=== PATIENT | female | born 1930 | race American Indian/Alaskan Native ===

== ENCOUNTER 2017-04-17 19:02 | Inpatient (IN) | payer MEDICARE, OTHER ==
[2017-04-17 19:02] VITALS: BMI 30.2
[2017-04-17] MEDS ORDERED: Vancomycin 1 GM 1 GM/250 ML BAG IV SCH (20:15)
[2017-04-17] MEDS ORDERED: Clindamycin 600mg/50ml D5W 600 MG/50 ML VIAL IVPB STA (20:19)
[2017-04-17] MEDS ORDERED: Nitroglycerin 2% Ointment Foilpak UD TOP STA (20:20)
[2017-04-17 20:30] LABS: BASO % 0.6 % (0.0-2.0); EOS # 0.1 K/uL (0.0-0.7); EOS % 1.3 % (0.0-4.0); HEMATOCRIT 35.9 % (34.0-47.0); LYMPH % 20.6 % (20.0-40.0); MEAN CELL VOLUME 87.6 fL (81.0-99.0); MEAN CORPUSCULAR HEMOGLOBIN 27.4 pg (27.0-31.0); MEAN CORPUSCULAR HGB CONC 31.3 g/dL (33.0-37.0); MEAN PLATELET VOLUME 9.3 fL (7.2-11.7); MONO # 0.8 K/uL (0.0-0.8); MONO % 15.9 % (0.0-10.0); NRBC % 0.2 % (0.0-2.0); WHITE BLOOD COUNT 4.9 K/uL (4.8-10.8)
[2017-04-17] MEDS ORDERED: Nitroglycerin 2% Ointment Foilpak UD TOP ONE (20:33)
[2017-04-17] MEDS ORDERED: Vancomycin 1 GM 1 GM/250 ML BAG IVPB ONE (20:34)
[2017-04-17 20:35] LABS: CHLORIDE 104 mmol/L (98-107); SODIUM 141 mmol/L (132-148)
[2017-04-17 20:36] LABS: POTASSIUM 4.4 mmol/L (3.6-5.2)
[2017-04-17 20:38] LABS: ALKALINE PHOSPHATASE 129 U/L (38-126); ALT/SGPT 41 U/L (9-52); AST/SGOT 31 U/L (14-36); BILIRUBIN,TOTAL 0.7 mg/dL (0.2-1.3); BLOOD UREA NITROGEN 19 mg/dL (7-17); CARBON DIOXIDE 25 mmol/L (22-30); GFR AFRICAN-AMERICAN > 60; GLUCOSE,RANDOM 236 mg/dL (65-105); TOTAL PROTEIN 7.3 g/dL (6.3-8.3)
[2017-04-17 20:39] LABS: CALCIUM 9.1 mg/dl (8.6-10.4)
--- NOTE | 2017-04-17 21:07 | C.PDOC ---
History Of Present Illness 87 y/o female c/o acute on chronic foot ulcer. Patient was sent by Dr. Gallo for the foot ulcer. Denies chest pain, SOB, fever, chills, nausea, vomiting, abdominal pain, palpitations, or any other complaints. Chronic wound stable, new onset lower extremity edema. Time Seen by Provider: 04/17/17 20:04 Chief Complaint (Nursing): Lower Extremity Problem/Injury History Per: Patient History/Exam Limitations: no limitations Onset/Duration Of Symptoms: Days, Sudden Onset Current Symptoms Are (Timing): Still Present Severity: Mild Recent travel outside of the [place]: No Additional History Per: Patient Past Medical History Reviewed: Historical Data, Nursing Documentation, Vital Signs Vital Signs: Last Vital Signs Temp 97.8 F 04/17/17 23:43 Pulse 69 04/17/17 23:20 Resp 20 04/17/17 23:20 BP 148/101 H 04/17/17 23:20 Pulse Ox 98 04/17/17 23:20 - Medical History PMH: Anxiety, Atrial Fibrillation, CHF, COPD, Dementia, Diabetes, HTN, Hypercholesterolemia, Peripheral Edema Denies: Depression, Chronic Kidney Disease - Xockets Procedures INJECT/INFUSE NEC (11/24/12) NONEXCIS DEBRID OF WOUND, INFECT, OR BURN (01/19/13) Family History: States: Unknown Family Hx - Social History Hx Tobacco Use: No Hx Alcohol Use: No Hx Substance Use: No - Immunization History Hx Tetanus Toxoid Vaccination: No Hx Influenza Vaccination: No Hx Pneumococcal Vaccination: No Review Of Systems Except As Marked, All Systems Reviewed And Found Negative. Constitutional: Negative for: Fever, Chills Cardiovascular: Negative for: Chest Pain, Palpitations Respiratory: Negative for: Shortness of Breath Gastrointestinal: Negative for: Nausea, Vomiting, Abdominal Pain Musculoskeletal: Positive for: Foot Pain (Chronic foot ulcer) Physical Exam - Physical Exam Appears: Non-toxic, No Acute Distress, Other (Elderly black women, Morbidly obese) Skin: Warm, Dry Head: Atraumatic, Normacephalic Cardiovascular: Rhythm Irregular (AFIB) Respiratory: Normal Breath Sounds, No Rales, No Rhonchi, No Wheezing Gastrointestinal/Abdominal: Soft, Other (Obese) Extremity: Normal ROM, Pedal Edema (3/4 pitting edema), Capillary Refill (<2secs ), Other (Chronic skin color changes. 3cm x 3cm ulcer on the left medial ankle. 4cm x 4cm ulcer on the right lateral ankle. No significant surrounding erythema. ) Pulses: Left Dorsalis Pedis: Normal, Right Dorsalis Pedis: Normal Neurological/Psych: Oriented x3, Normal Speech, Normal Cognition Gait: Steady ED Course And Treatment - Laboratory Results Result Diagrams: 04/17/17 20:24 04/17/17 20:24 Lab Interpretation: Normal (trop neg,) ECG: Interpreted By Me ECG Rhythm: Atrial Fibrillation ECG Interpretation: Abnormal Rate From EC O2 Sat by Pulse Oximetry: 100 (RA) Pulse Ox Interpretation: Normal - Radiology CXR: Interpreted by Me CXR Interpretation: Yes: No Acute Disease Progress Note: clinda, vanco, lasix, lovenox, clonidine PO Reevaluation Time: 22:21 Reassessment Condition: Improved Medical Decision Making Medical Decision Making: Impression: 87 y/o female c/o acute on chronic foot ulcer. Plans: EKG * CXR * Catapres * Lovenox * Lasic * Vanco. * Blood work up * IV fluids no h/o AF, new AF on EKG, lovenox given, INR pending Clinical CHF/leg edema and ++ HTN, continue ntp/lasix IV/clonidine ?? if ulcers for "years" but DM only recently dx, consider other ID etiologies. Former pt of [facility] and does NOT want [facility] for new PMD- wants new /other local PMD d/w Dr. Kinza Bowen- Medicine call or contact centre team leader- @ 2029, ok to admit, asks for Dr. Prado for ID consult 2220: d/w Dr. 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 I have reviewed the chart and agree that the record accurately reflects my personal performance of the history, physical exam, medical decision making, and the department course for this patient. I have also personally directed, reviewed, and agree with the discharge instructions and disposition.
[2017-04-17] MEDS ORDERED: Enoxaparin 40 mg Syringe SC STA (21:09)
[2017-04-17 21:51] LABS: RBC URINE 6 /hpf (0-3); URINE BACTERIA RARE (<OCC); URINE BILIRUBIN NEGATIVE (NEGATIVE); URINE BLOOD 1+ (NEGATIVE); URINE COLOR Straw (YELLOW); URINE GLUCOSE (UA) NORMAL (Normal); URINE KETONE NEGATIVE (NEGATIVE); URINE LEUKOCYTE ESTERASE NEG Leu/uL (Negative); URINE PROTEIN 1+ mg/dL (NEGATIVE); URINE UROBILINOGEN NORMAL mg/dL (0.2-1.0); WBC URINE 1 /hpf (0-5)
[2017-04-17] MEDS ORDERED: Vancomycin 1 GM 1 GM/250 ML BAG IV STA (21:53)
[2017-04-17 21:54] LABS: INR 1.2
[2017-04-17] MEDS ORDERED: Enoxaparin 80 mg Syringe ONE (21:56)
[2017-04-17] MEDS ORDERED: Enoxaparin 40 mg Syringe ONE (21:56)
[2017-04-18] MEDS ORDERED: Magnesium Hydroxide Susp 30 ml UD PO PRN (05:58)
[2017-04-18] MEDS: Nitroglycerin 2% Ointment Foilpak UD TOP SCH ×4 (06:26→23:51)
--- NOTE | 2017-04-18 08:11 | RAD ---
PROCEDURE: CHEST RADIOGRAPH, 1 VIEW HISTORY: SOB COMPARISON: 07/09/2016. FINDINGS: LUNGS: There is moderate pulmonary venous congestion. PLEURA: There is fluid in the minor fissure. There are bilateral pleural effusions, larger on the left. CARDIOVASCULAR: There is severe cardiomegaly and prominent central vasculature. OSSEOUS STRUCTURES: No significant abnormalities. VISUALIZED UPPER ABDOMEN: Normal. OTHER FINDINGS: None. IMPRESSION: Findings are most compatible with congestive heart failure with small pleural effusions, larger on the left.
[2017-04-18] MEDS: (Novolog) Insulin Aspart, Recombinant 100 u/ml 10 ml vial SC SCH ×5 (08:28→21:44)
[2017-04-18] MEDS: Potassium Chloride 10 mEq ER Tab PO SCH (10:59)
--- NOTE | 2017-04-18 11:22 | CP.PCM.CON ---
<Willian Dominique E - Last Filed: 04/18/17 15:35> History of Present Illness - History of Present Illness History of Present Illness: Surgical Consult for bilateral leg ulcers HPI: Patient is a 87 year old female with past medical history Atrial Fibrillation, CHF, COPD, Diabetes, Hypertension, Hypercholesterolemia, depression and recurrent foot ulcer. Patient was sent by Dr. Martinez for the foot ulcer, for which surgery is consulted. Patient denies fever, chills, nausea, vomiting, chest pain and palpitations but admits to moderate pain on her left ankle with palpation. Patient has no other complaints. PMHx: Atrial fibrillation, CHF, COPD, dementia, Diabetes, HTN , Hypercholestertolemia and depression PSHx: x2, FHx: Unknown Medications: as per chart Allergies: Ertapnenem sodium Social History: Lives in a detention, denies tobacco, ETOH and illicit drug use. Review of Systems - Constitutional Constitutional: absent: Chills, Fever - Cardiovascular Cardiovascular: Dyspnea on Exertion, Leg Ulcers. absent: Chest Pain, Chest Pain at Rest, Diaphoresis, Dyspnea, Palpitations - Respiratory Respiratory: absent: Dyspnea - Gastrointestinal Gastrointestinal: absent: Abdominal Pain, Nausea, Vomiting - Musculoskeletal Musculoskeletal: absent: Numbness, Tingling Past Patient History - Infectious Disease Hx of Infectious Diseases: None - Tetanus Immunizations Tetanus Immunization: Unknown - Past Medical History & Family History Past Medical History?: Yes - Past Social History Smoking Status: Never Smoked - CARDIAC Hx Cardiac Disorders: Yes Hx Atrial Fibrillation: Yes Hx Congestive Heart Failure: Yes Hx Hypercholesterolemia: Yes Hx Hypertension: Yes Hx Peripheral Edema: Yes - PULMONARY Hx Respiratory Disorders: Yes Hx Chronic Obstructive Pulmonary Disease (COPD): Yes - NEUROLOGICAL Hx Neurological Disorder: Yes Hx Dementia: Yes - HEENT Hx HEENT Problems: No Other/Comment: gets nasal congestion - RENAL Hx Chronic Kidney Disease: No - ENDOCRINE/METABOLIC Hx Endocrine Disorders: Yes Hx Diabetes Mellitus Type 2: Yes - HEMATOLOGICAL/ONCOLOGICAL Hx Blood Disorders: No Hx Blood Transfusions: No Hx Blood Transfusion Reaction: No - INTEGUMENTARY Hx Dermatological Problems: Yes Other/Comment: dry scaly skin, bilateral inner aspect of foot open wound. - MUSCULOSKELETAL/RHEUMATOLOGICAL Hx Musculoskeletal Disorders: Yes Hx Falls: Yes - GASTROINTESTINAL Hx Gastrointestinal Disorders: No - GENITOURINARY/GYNECOLOGICAL Hx Genitourinary Disorders: Yes Hx Urinary Tract Infection: Yes - PSYCHIATRIC Hx Anxiety: Yes - SURGICAL HISTORY Hx Surgeries: Yes Hx Section: Yes (x2) - ANESTHESIA Hx Anesthesia: Yes Hx Anesthesia Reactions: No Hx Malignant Hyperthermia: No Meds Allergies/Adverse Reactions: Allergies Allergy/AdvReac Type Severity Reaction Status Date / Time ertapenem sodium Allergy Verified 04/17/17 19:30 [From Erwin] - Medications Medications: Current Medications Furosemide (Lasix) 40 mg PO DAILY [facility] Insulin Aspart (Novolog) 0 unit SC ACHS [facility] PRN Reason: Protocol Last Admin: 04/18/17 08:29 Dose: Not Given Lactic Acid (Lac-Hydrin 12% Lotion (225 G)) 0 gm TOP BID [facility] Lactulose (Enulose) 20 gm PO Q12 [facility] Losartan Potassium (Cozaar) 100 mg PO DAILY [facility] Magnesium Hydroxide (Milk Of Magnesia) 30 ml PO Q8 PRN PRN Reason: Constipation Nitroglycerin (Nitro-Bid 2% Oint) 1 ea TOP Q6 [facility] Last Admin: 04/18/17 06:26 Dose: 1 ea Potassium Chloride (Klor-Con 10) 10 meq PO DAILY [facility] Rivaroxaban (Xarelto) 20 mg PO DAILY [facility] Physical Exam - Constitutional Appears: Well, No Acute Distress - Head Exam Head Exam: ATRAUMATIC, NORMAL INSPECTION - Respiratory Exam Respiratory Exam: Decreased Breath Sounds, NORMAL BREATHING PATTERN - Cardiovascular Exam Cardiovascular Exam: Irregular Rhythm, +S1, +S2 - GI/Abdominal Exam GI & Abdominal Exam: Normal Bowel Sounds, Soft - Extremities Exam Extremities exam: Positive for: tenderness Additional comments: B/L Leg Ulcer dressing clean, dry and intact 3cm X 4cm Left medial mallelous ulcer 2cm x 1.5 cm Right leg ulcer - Neurological Exam Neurological exam: Alert Results - Vital Signs Recent Vital Signs: Last Vital Signs Temp 97.6 F 04/18/17 08:16 Pulse 89 04/18/17 08:16 Resp 20 04/18/17 08:16 BP 162/103 H 04/18/17 08:16 Pulse Ox 100 04/18/17 08:16 - Labs Result Diagrams: 04/17/17 20:24 04/17/17 20:24 Labs: Laboratory Results - last 24 hr 04/17/17 04/17/17 04/18/17 21:39 21:41 06:17 PT 13.2 H INR 1.2 POC Glucose (mg/dL) 205 H Urine Color Straw Urine Clarity Clear Urine pH 5.0 Ur Specific [place] 1.006 Urine Protein 1+ H Urine Glucose (UA) Normal Urine Ketones Negative Urine Blood 1+ H Urine Nitrate Negative Urine Bilirubin Negative Urine Urobilinogen Normal Ur Leukocyte Esterase Neg Urine WBC (Auto) 1 Urine RBC (Auto) 6 H Ur Squamous Epith Cells 8 H Urine Bacteria Rare Assessment & Plan - Assessment and Plan (Free Text) Assessment: 87 year old female with bilateral leg ulcer Plan: -Dressing changes as needed -Continue antibiotics -Continue medical management as per podiatry recommendation: foot elevation, diuresis, diabetic foot ulcer boots -No surgical intervention at this time -Further recommendation as per Dr. Delbert Dominique, PGY -1 <Enio Mandujano - Last Filed: 04/19/17 17:55> Meds - Medications Medications: Current Medications Amlodipine Besylate (Norvasc) 2.5 mg PO DAILY [facility] Last Admin: 04/19/17 14:54 Dose: 2.5 mg Furosemide (Lasix) 40 mg PO DAILY [facility] Last Admin: 04/19/17 10:31 Dose: 40 mg Vancomycin/Sodium Chloride (Vancocin) 1 gm in 200 mls @ 133.333 mls/hr IVPB Q24H [facility] Stop: 04/23/17 22:01 Last Admin: 04/18/17 22:46 Dose: 133.333 mls/hr Insulin Aspart (Novolog) 0 unit SC ACHS [facility] PRN Reason: Protocol Last Admin: 04/19/17 12:30 Dose: Not Given Isosorbide Mononitrate (Imdur) 60 mg PO DAILY [facility] Lactic Acid (Lac-Hydrin 12% Lotion (225 G)) 0 gm TOP BID [facility] Last Admin: 04/19/17 10:32 Dose: 1 applic Lactulose (Enulose) 20 gm PO Q12 [facility] Last Admin: 04/19/17 10:32 Dose: Not Given Losartan Potassium (Cozaar) 100 mg PO DAILY [facility] Last Admin: 04/19/17 10:31 Dose: 100 mg Magnesium Hydroxide (Milk Of Magnesia) 30 ml PO Q8 PRN PRN Reason: Constipation Metoprolol Tartrate (Lopressor) 25 mg PO BID [facility] Potassium Chloride (Klor-Con 10) 10 meq PO DAILY [facility] Last Admin: 04/19/17 10:32 Dose: 10 meq Rivaroxaban (Xarelto) 20 mg PO DAILY [facility] Last Admin: 04/19/17 09:57 Dose: 20 mg Sodium Hypochlorite (Dakins Solution 0.125%) 0.5 appl TOP BID [facility] Results - Vital Signs Recent Vital Signs: Last Vital Signs Temp 98.0 F 04/19/17 08:52 Pulse 106 H 04/19/17 08:52 Resp 20 04/19/17 08:52 BP 165/97 H 04/19/17 10:31 Pulse Ox 98 04/19/17 08:52 - Labs Result Diagrams: 04/19/17 06:32 04/19/17 06:32 Labs: Laboratory Results - last 24 hr 04/18/17 04/18/17 04/19/17 18:47 21:03 06:15 WBC RBC Hgb Hct MCV MCH MCHC RDW Plt Count MPV Neut % (Auto) Lymph % (Auto) [place] % (Auto) Eos % (Auto) Baso % (Auto) Neut # Lymph # [place] # Eos # Baso # Sodium Potassium Chloride Carbon Dioxide Anion Gap BUN Creatinine Est GFR ( Amer) Est GFR (Non-Af Amer) POC Glucose (mg/dL) 222 H 202 H 155 H Random Glucose Calcium Total Bilirubin AST ALT Alkaline Phosphatase Total Protein Albumin Globulin Albumin/Globulin Ratio 04/19/17 04/19/17 04/19/17 06:32 06:32 11:50 WBC 4.7 L RBC 3.78 L Hgb 10.1 L Hct 32.6 L MCV 86.3 MCH 26.9 L MCHC 31.1 L RDW 17.5 H Plt Count 153 MPV 9.2 Neut % (Auto) 51.8 Lymph % (Auto) 30.0 [place] % (Auto) 14.9 H Eos % (Auto) 2.3 Baso % (Auto) 1.0 Neut # 2.5 Lymph # 1.4 [place] # 0.7 Eos # 0.1 Baso # 0.0 Sodium 144 Potassium 3.9 Chloride 107 Carbon Dioxide 26 Anion Gap 15 BUN 17 Creatinine 0.8 Est GFR ( Amer) > 60 Est GFR (Non-Af Amer) > 60 POC Glucose (mg/dL) 219 H Random Glucose 141 H Calcium 9.0 Total Bilirubin 0.8 AST 26 ALT 34 Alkaline Phosphatase 138 H Total Protein 6.7 Albumin 3.1 L Globulin 3.6 Albumin/Globulin Ratio 0.9 L 04/19/17 17:00 WBC RBC Hgb Hct MCV MCH MCHC RDW Plt Count MPV Neut % (Auto) Lymph % (Auto) [place] % (Auto) Eos % (Auto) Baso % (Auto) Neut # Lymph # [place] # Eos # Baso # Sodium Potassium Chloride Carbon Dioxide Anion Gap BUN Creatinine Est GFR ( Amer) Est GFR (Non-Af Amer) POC Glucose (mg/dL) 190 H Random Glucose Calcium Total Bilirubin AST ALT Alkaline Phosphatase Total Protein Albumin Globulin Albumin/Globulin Ratio Attending/Attestation - Attestation I have personally seen and examined this patient.: Yes I have fully participated in the care of the patient.: Yes I have reviewed all pertinent clinical information: Yes Notes (Text): 04/19/17 17:54 Pt was seen and examined at bedside Agree with above note and assessment Pt with OM and Foot ulcer No general surgery intervention required at present F.U PRN
[2017-04-18] MEDS: Ammonium Lactate 12% Lotion (225 g) TOP SCH ×2 (11:58→18:42)
--- NOTE | 2017-04-18 13:09 | PCM.PSYCH ---
Initial Psychiatric Evaluation - Initial Psychiatric Evaluation Type of Admission: Voluntary Legal Status: Capacity Chief Complaint (in patient's own words): "I am feeling depressed and want to leave the hospital." Patient's Reaction to Hospitalization: cooperative History of Present Illness and Precipitating Events: Patient is an 87 year old female in the hospital for a foot ulcer. Psychiatry consulted because the patient is feeling depressed and sometimes has thoughts of hurting herself. Patient does not think is better than life. Patient currently does not want to hurt herself. Patient says she has been depressed since she moved to a prison 2 years ago. Patient has no history of depression before this. Patient denies auditory of visual hallucinations. Patient has no delusions. Patient has never been hospitalized for a psychiatric reason and has never been to a psychiatrist. Patient does not like her prison because she feels that the staff often do not answer her questions adequately. Patient is able to recall where she is, the date, and the past two presidents. Psychhx: none PMD: Atrial fibrillation, CHF, COPD, dementia, Diabetes, HTN , Hypercholestertolemia Social hx: lives in prison for past 2 years, denies tobacco, ETOH and drug use Current Medications: Active Medications Generic Name Dose Route Start Last Admin Trade Name Freq PRN Reason Stop Dose Admin Furosemide 40 mg 04/18/17 10:00 04/18/17 10:58 Lasix PO 40 mg DAILY [facility] Administration Insulin Aspart 0 unit 04/18/17 07:30 04/18/17 12:30 Novolog SC Not Given ACHS [facility] Protocol Lactic Acid 0 gm 04/18/17 10:00 04/18/17 11:58 Lac-Hydrin 12% Lotion (225 G) TOP Not Given BID [facility] Lactulose 20 gm 04/18/17 10:00 04/18/17 10:59 Enulose PO 20 gm Q12 [facility] Administration Losartan Potassium 100 mg 04/18/17 10:00 04/18/17 10:59 Cozaar PO 100 mg DAILY [facility] Administration Magnesium Hydroxide 30 ml 04/18/17 05:58 Milk Of Magnesia PO Q8 PRN Constipation Nitroglycerin 1 ea 04/18/17 06:00 04/18/17 06:26 Nitro-Bid 2% Oint TOP 1 ea Q6 [facility] Administration Potassium Chloride 10 meq 04/18/17 10:00 04/18/17 10:59 Klor-Con 10 PO 10 meq DAILY [facility] Administration Rivaroxaban 20 mg 04/18/17 10:00 04/18/17 11:55 Xarelto PO 20 mg DAILY [facility] Administration Past Psychiatric History - Past Psychiatric History Previous Treatment History: None Pertinent Medical Hx (Current Medical&Sleep Prob, Allergies): Allergies Allergy/AdvReac Type Severity Reaction Status Date / Time ertapenem sodium Allergy Verified 04/17/17 19:30 [From Invanz] Ammonium Lactate 12% [Lac-Hydrin 12% Cream (140 g)] 1 dose TP BID 07/09/16 Insulin Aspart [Novolog] 0 unit SC DAILY 07/09/16 Lactulose [Enulose] 20 gm PO Q12 07/09/16 Magnesium Hydroxide [Milk Of Magnesia] 30 ml PO PRN PRN 07/09/16 Losartan [Cozaar] 100 mg PO DAILY #0 tab 07/12/16 Nitroglycerin 2% [Nitro-Bid 2% Oint] 1 ea TOP Q6 #0 fp 07/12/16 Rivaroxaban [Xarelto] 20 mg PO DAILY #0 tab 07/12/16 Furosemide [Lasix] 40 mg PO DAILY 04/17/17 Potassium Chloride [Klor-Con 10] 10 meq PO DAILY 04/17/17 Review of Systems - Psychiatric Psychiatric: Anxiety, Depression. absent: Auditory Hallucinations, Confusion, Hallucinations, Homicidal Ideation, Hopelessness, Paranoia, Suicidal Ideation Mental Status Examination - Personal Presentation Personal Presentation: Looks stated age - Affect Affect: Broad - Motor Activity Motor Activity: Calm - Reliability in Providing Information Reliability in Providing Information: Fair - Speech Speech: Relevant - Mood Mood: Depressed, Anxious - Formal Thought Process Formal Thought Process: No Impairment - Obsessions/Compulsions Obsessions: No Compulsions: No - Cognitive Functions Orientation: Person, Place, Situation, Time Sensorium: Alert Abstract Thinking: [place] Estimate of Intelligence: Average Judgement: Intact, as evidence by: Insight regarding need for hospitalization Memory: Recent intact, as evidence by: Ability to recall events of the day - Strength & Assets Inventory Strength & Assets Inventory: Family support DSM 5 DX - DSM 5 DSM 5 Diagnosis: Senile Dementia Anxiety Disorder - Recommended/Plan of Treatment Treatment Recommendations and Plan of Treatment: Senile Dementia monitor supportive care Anxiety disorder monitor Patient stable, psych will sign off, please re-consult if needed. Prognosis: good
--- NOTE | 2017-04-18 15:18 | CP.PCM.CON ---
History of Present Illness - History of Present Illness History of Present Illness: 87 year old female with PMHx including Atrial fibrillation, CHF, COPD, dementia , Diabetes, HTN , Hypercholestertolemia was seen at bedside this afternoon regarding b/l ankle ulcerations. Patient states that she saw, Dr. Mack in office yesterday for her wounds. She states that her ankles are tender and that she has had these wounds for a while. Denies any n/v/f/c/sob/cp. Past Patient History - Infectious Disease Hx of Infectious Diseases: None - Tetanus Immunizations Tetanus Immunization: Unknown - Past Medical History & Family History Past Medical History?: Yes - Past Social History Smoking Status: Never Smoked - CARDIAC Hx Cardiac Disorders: Yes Hx Atrial Fibrillation: Yes Hx Congestive Heart Failure: Yes Hx Hypercholesterolemia: Yes Hx Hypertension: Yes Hx Peripheral Edema: Yes - PULMONARY Hx Respiratory Disorders: Yes Hx Chronic Obstructive Pulmonary Disease (COPD): Yes - NEUROLOGICAL Hx Neurological Disorder: Yes Hx Dementia: Yes - HEENT Hx HEENT Problems: No Other/Comment: gets nasal congestion - RENAL Hx Chronic Kidney Disease: No - ENDOCRINE/METABOLIC Hx Endocrine Disorders: Yes Hx Diabetes Mellitus Type 2: Yes - HEMATOLOGICAL/ONCOLOGICAL Hx Blood Disorders: No Hx Blood Transfusions: No Hx Blood Transfusion Reaction: No - INTEGUMENTARY Hx Dermatological Problems: Yes Other/Comment: dry scaly skin, bilateral inner aspect of foot open wound. - MUSCULOSKELETAL/RHEUMATOLOGICAL Hx Musculoskeletal Disorders: Yes Hx Falls: Yes - GASTROINTESTINAL Hx Gastrointestinal Disorders: No - GENITOURINARY/GYNECOLOGICAL Hx Genitourinary Disorders: Yes Hx Urinary Tract Infection: Yes - PSYCHIATRIC Hx Anxiety: Yes - SURGICAL HISTORY Hx Surgeries: Yes Hx Section: Yes (x2) - ANESTHESIA Hx Anesthesia: Yes Hx Anesthesia Reactions: No Hx Malignant Hyperthermia: No Meds Allergies/Adverse Reactions: Allergies Allergy/AdvReac Type Severity Reaction Status Date / Time ertapenem sodium Allergy Verified 04/17/17 19:30 [From Invanz] - Medications Medications: Current Medications Furosemide (Lasix) 40 mg PO DAILY [facility] Last Admin: 04/18/17 10:58 Dose: 40 mg Insulin Aspart (Novolog) 0 unit SC ACHS [facility] PRN Reason: Protocol Last Admin: 04/18/17 12:30 Dose: Not Given Lactic Acid (Lac-Hydrin 12% Lotion (225 G)) 0 gm TOP BID [facility] Last Admin: 04/18/17 11:58 Dose: Not Given Lactulose (Enulose) 20 gm PO Q12 [facility] Last Admin: 04/18/17 10:59 Dose: 20 gm Losartan Potassium (Cozaar) 100 mg PO DAILY [facility] Last Admin: 04/18/17 10:59 Dose: 100 mg Magnesium Hydroxide (Milk Of Magnesia) 30 ml PO Q8 PRN PRN Reason: Constipation Nitroglycerin (Nitro-Bid 2% Oint) 1 ea TOP Q6 [facility] Last Admin: 04/18/17 12:58 Dose: 1 ea Potassium Chloride (Klor-Con 10) 10 meq PO DAILY [facility] Last Admin: 04/18/17 10:59 Dose: 10 meq Rivaroxaban (Xarelto) 20 mg PO DAILY [facility] Last Admin: 04/18/17 11:55 Dose: 20 mg Physical Exam - Constitutional Appears: Non-toxic - Extremities Exam Additional comments: Lower extremity focused exam: Vasc: DP and PT pulses faintly palpable b/l. Skin temperature warm to cool from proximal to distal b/l Neuro: Gross sensation diminished b/l Ortho: Tenderness on palpation to wounds at right and left medial ankle Derm: Open ulcerations noted to the right ankle measuring approximately 4 cm by 4 cm by 0.3 cm with fibrogranular base, no malodor, no puruelnce noted. Ulceration noted to the left ankle measure approximately 2.5 cm by 1.5 cm by 0.3 cm with fibrogranular base, no malodor, no puruelnce noted. No erythema, no calor noted. - Neurological Exam Neurological exam: Alert, Oriented x3 - Psychiatric Exam Psychiatric exam: Normal Affect, Normal Mood Results - Vital Signs Recent Vital Signs: Last Vital Signs Temp 97.6 F 04/18/17 08:16 Pulse 89 04/18/17 08:16 Resp 20 04/18/17 08:16 BP 152/97 H 04/18/17 10:58 Pulse Ox 100 04/18/17 08:16 - Labs Result Diagrams: 04/17/17 20:24 04/17/17 20:24 Labs: Laboratory Results - last 24 hr 04/17/17 04/17/17 04/18/17 21:39 21:41 06:17 PT 13.2 H INR 1.2 POC Glucose (mg/dL) 205 H Urine Color Straw Urine Clarity Clear Urine pH 5.0 Ur Specific [place] 1.006 Urine Protein 1+ H Urine Glucose (UA) Normal Urine Ketones Negative Urine Blood 1+ H Urine Nitrate Negative Urine Bilirubin Negative Urine Urobilinogen Normal Ur Leukocyte Esterase Neg Urine WBC (Auto) 1 Urine RBC (Auto) 6 H Ur Squamous Epith Cells 8 H Urine Bacteria Rare 04/18/17 11:40 PT INR POC Glucose (mg/dL) 181 H Urine Color Urine Clarity Urine pH Ur Specific [place] Urine Protein Urine Glucose (UA) Urine Ketones Urine Blood Urine Nitrate Urine Bilirubin Urine Urobilinogen Ur Leukocyte Esterase Urine WBC (Auto) Urine RBC (Auto) Ur Squamous Epith Cells Urine Bacteria Assessment & Plan - Assessment and Plan (Free Text) Assessment: 87 year old female with b/l ulcerations noted to the ankle Plan: patient examined and evaluated discussed in detail with attending, Dr. Mack chart, labs, vitals reviewed;afebrile, WBC 4.9 wounds dressed with DSD continue IV abx per ID podiatry will continue to follow patient while in house
--- NOTE | 2017-04-18 16:35 | CP.PCM.CON ---
History of Present Illness - History of Present Illness History of Present Illness: dictated Past Patient History - Infectious Disease Hx of Infectious Diseases: None - Tetanus Immunizations Tetanus Immunization: Unknown - Past Medical History & Family History Past Medical History?: Yes - Past Social History Smoking Status: Never Smoked - CARDIAC Hx Cardiac Disorders: Yes Hx Atrial Fibrillation: Yes Hx Congestive Heart Failure: Yes Hx Hypercholesterolemia: Yes Hx Hypertension: Yes Hx Peripheral Edema: Yes - PULMONARY Hx Respiratory Disorders: Yes Hx Chronic Obstructive Pulmonary Disease (COPD): Yes - NEUROLOGICAL Hx Neurological Disorder: Yes Hx Dementia: Yes - HEENT Hx HEENT Problems: No Other/Comment: gets nasal congestion - RENAL Hx Chronic Kidney Disease: No - ENDOCRINE/METABOLIC Hx Endocrine Disorders: Yes Hx Diabetes Mellitus Type 2: Yes - HEMATOLOGICAL/ONCOLOGICAL Hx Blood Disorders: No Hx Blood Transfusions: No Hx Blood Transfusion Reaction: No - INTEGUMENTARY Hx Dermatological Problems: Yes Other/Comment: dry scaly skin, bilateral inner aspect of foot open wound. - MUSCULOSKELETAL/RHEUMATOLOGICAL Hx Musculoskeletal Disorders: Yes Hx Falls: Yes - GASTROINTESTINAL Hx Gastrointestinal Disorders: No - GENITOURINARY/GYNECOLOGICAL Hx Genitourinary Disorders: Yes Hx Urinary Tract Infection: Yes - PSYCHIATRIC Hx Anxiety: Yes - SURGICAL HISTORY Hx Surgeries: Yes Hx Section: Yes (x2) - ANESTHESIA Hx Anesthesia: Yes Hx Anesthesia Reactions: No Hx Malignant Hyperthermia: No Meds Allergies/Adverse Reactions: Allergies Allergy/AdvReac Type Severity Reaction Status Date / Time ertapenem sodium Allergy Verified 04/17/17 19:30 [From Erwin] - Medications Medications: Current Medications Furosemide (Lasix) 40 mg PO DAILY [facility] Last Admin: 04/18/17 10:58 Dose: 40 mg Vancomycin/Sodium Chloride (Vancocin) 1 gm in 200 mls @ 133.333 mls/hr IVPB Q24H [facility] Stop: 04/23/17 22:01 Insulin Aspart (Novolog) 0 unit SC ACHS [facility] PRN Reason: Protocol Last Admin: 04/18/17 12:30 Dose: Not Given Lactic Acid (Lac-Hydrin 12% Lotion (225 G)) 0 gm TOP BID [facility] Last Admin: 04/18/17 11:58 Dose: Not Given Lactulose (Enulose) 20 gm PO Q12 [facility] Last Admin: 04/18/17 10:59 Dose: 20 gm Losartan Potassium (Cozaar) 100 mg PO DAILY [facility] Last Admin: 04/18/17 10:59 Dose: 100 mg Magnesium Hydroxide (Milk Of Magnesia) 30 ml PO Q8 PRN PRN Reason: Constipation Nitroglycerin (Nitro-Bid 2% Oint) 1 ea TOP Q6 [facility] Last Admin: 04/18/17 12:58 Dose: 1 ea Potassium Chloride (Klor-Con 10) 10 meq PO DAILY [facility] Last Admin: 04/18/17 10:59 Dose: 10 meq Rivaroxaban (Xarelto) 20 mg PO DAILY [facility] Last Admin: 04/18/17 11:55 Dose: 20 mg Results - Vital Signs Recent Vital Signs: Last Vital Signs Temp 98.0 F 04/18/17 15:35 Pulse 103 H 04/18/17 15:35 Resp 18 04/18/17 15:35 BP 151/91 H 04/18/17 15:35 Pulse Ox 97 04/18/17 15:35 - Labs Result Diagrams: 04/17/17 20:24 04/17/17 20:24 Labs: Laboratory Results - last 24 hr 04/17/17 04/17/17 04/18/17 21:39 21:41 06:17 PT 13.2 H INR 1.2 POC Glucose (mg/dL) 205 H Urine Color Straw Urine Clarity Clear Urine pH 5.0 Ur Specific [place] 1.006 Urine Protein 1+ H Urine Glucose (UA) Normal Urine Ketones Negative Urine Blood 1+ H Urine Nitrate Negative Urine Bilirubin Negative Urine Urobilinogen Normal Ur Leukocyte Esterase Neg Urine WBC (Auto) 1 Urine RBC (Auto) 6 H Ur Squamous Epith Cells 8 H Urine Bacteria Rare 04/18/17 11:40 PT INR POC Glucose (mg/dL) 181 H Urine Color Urine Clarity Urine pH Ur Specific [place] Urine Protein Urine Glucose (UA) Urine Ketones Urine Blood Urine Nitrate Urine Bilirubin Urine Urobilinogen Ur Leukocyte Esterase Urine WBC (Auto) Urine RBC (Auto) Ur Squamous Epith Cells Urine Bacteria
--- NOTE | 2017-04-18 18:42 | CON ---
ADDENDUM Charisma Rossi is an 87-year-old black female. I am consulted at the request of Dr. Kinza Bowen. The patient was seen last night in my office with shortness of breath and draining ulcers of the both ankles. Moderate cellulitis noted about the both lower ankles. The patient expressed retaining of fluid and shortness of breath and we suggested that the patient be admitted. Seen this morning at bedside with the surgical scheduler, it is noted that there is increased turgor about the bilateral lower extremities with open ulcers, right greater than left. The patient will be evaluated vascularly by Dr. Tai. Local wound management of these ulcers to be carried out and diuresis to begin to limit the amount of edema about the bilateral lower extremities and potential Unna boot therapy as well. Local wound management, IV antibiotics would be administered, and the patient will be continued on antibiotics and discharged to subacute in a short course. Nicholas Hathaway DPM
--- NOTE | 2017-04-18 19:05 | CP.PCM.HP ---
Past Patient History - Infectious Disease Hx of Infectious Diseases: None - Tetanus Immunizations Tetanus Immunization: Unknown - Past Medical History & Family History Past Medical History?: Yes - Past Social History Smoking Status: Never Smoked - CARDIAC Hx Cardiac Disorders: Yes Hx Atrial Fibrillation: Yes Hx Congestive Heart Failure: Yes Hx Hypercholesterolemia: Yes Hx Hypertension: Yes Hx Peripheral Edema: Yes - PULMONARY Hx Respiratory Disorders: Yes Hx Chronic Obstructive Pulmonary Disease (COPD): Yes - NEUROLOGICAL Hx Neurological Disorder: Yes Hx Dementia: Yes - HEENT Hx HEENT Problems: No Other/Comment: gets nasal congestion - RENAL Hx Chronic Kidney Disease: No - ENDOCRINE/METABOLIC Hx Endocrine Disorders: Yes Hx Diabetes Mellitus Type 2: Yes - HEMATOLOGICAL/ONCOLOGICAL Hx Blood Disorders: No Hx Blood Transfusions: No Hx Blood Transfusion Reaction: No - INTEGUMENTARY Hx Dermatological Problems: Yes Other/Comment: dry scaly skin, bilateral inner aspect of foot open wound. - MUSCULOSKELETAL/RHEUMATOLOGICAL Hx Musculoskeletal Disorders: Yes Hx Falls: Yes - GASTROINTESTINAL Hx Gastrointestinal Disorders: No - GENITOURINARY/GYNECOLOGICAL Hx Genitourinary Disorders: Yes Hx Urinary Tract Infection: Yes - PSYCHIATRIC Hx Anxiety: Yes - SURGICAL HISTORY Hx Surgeries: Yes Hx Section: Yes (x2) - ANESTHESIA Hx Anesthesia: Yes Hx Anesthesia Reactions: No Hx Malignant Hyperthermia: No Meds Allergies/Adverse Reactions: Allergies Allergy/AdvReac Type Severity Reaction Status Date / Time ertapenem sodium Allergy Verified 04/17/17 19:30 [From Invanz] Physical Exam - Constitutional Appears: Well - Head Exam Head Exam: ATRAUMATIC, NORMAL INSPECTION, NORMOCEPHALIC - Eye Exam Eye Exam: EOMI, Normal appearance, PERRL Pupil Exam: NORMAL ACCOMODATION, PERRL - ENT Exam ENT Exam: Mucous Membranes Moist, Normal Exam - Neck Exam Neck exam: Positive for: Normal Inspection - Respiratory Exam Respiratory Exam: Decreased Breath Sounds - Cardiovascular Exam Cardiovascular Exam: REGULAR RHYTHM, +S1, +S2 - GI/Abdominal Exam GI & Abdominal Exam: Diminished Bowel Sounds, Soft - Rectal Exam Rectal Exam: Deferred Results - Vital Signs Recent Vital Signs: Last Vital Signs Temp 98.0 F 04/18/17 15:35 Pulse 103 H 04/18/17 15:35 Resp 18 04/18/17 15:35 BP 151/91 H 04/18/17 15:35 Pulse Ox 97 04/18/17 15:35 - Labs Result Diagrams: 04/17/17 20:24 04/17/17 20:24 Labs: Laboratory Results - last 24 hr 04/17/17 04/17/17 04/18/17 21:39 21:41 06:17 PT 13.2 H INR 1.2 POC Glucose (mg/dL) 205 H Urine Color Straw Urine Clarity Clear Urine pH 5.0 Ur Specific [place] 1.006 Urine Protein 1+ H Urine Glucose (UA) Normal Urine Ketones Negative Urine Blood 1+ H Urine Nitrate Negative Urine Bilirubin Negative Urine Urobilinogen Normal Ur Leukocyte Esterase Neg Urine WBC (Auto) 1 Urine RBC (Auto) 6 H Ur Squamous Epith Cells 8 H Urine Bacteria Rare 04/18/17 04/18/17 11:40 18:47 PT INR POC Glucose (mg/dL) 181 H 222 H Urine Color Urine Clarity Urine pH Ur Specific [place] Urine Protein Urine Glucose (UA) Urine Ketones Urine Blood Urine Nitrate Urine Bilirubin Urine Urobilinogen Ur Leukocyte Esterase Urine WBC (Auto) Urine RBC (Auto) Ur Squamous Epith Cells Urine Bacteria
--- NOTE | 2017-04-18 19:21 | CON ---
DATE: 04/18/2017 REQUESTING PHYSICIAN: Dr. Kinza Bowen This is an 87-year-old black female, well know to me in the past for care of recalcitrant ulcer about the right lower extremity and now as well as the medial aspect of the left. She was seen in my office yesterday with shortness of breath and exacerbation of edema throughout her body, most significantly on the posterior aspects of the calves. Pulses were difficult to palpate. She expressed shortness of breath symptoms and it was suggested to her to be admitted. Today, we find her alert, oriented x3 at bedside. Dressing is intact. Bilateral lower extremities will be evaluated vascularly by Dr. Tai and local wound management for her bilateral lower extremity ulcers. Culture would be taken, antibiotics administrated and topical wound care of her ulcers will be instituted. Nicholas Hathaway DPM
[2017-04-18] MEDS: Vancomycin 1 gm/NS 200 ml 1 GM/200 ML BAG IVPB SCH (22:46)
[2017-04-19] MEDS: Nitroglycerin 2% Ointment Foilpak UD TOP SCH ×2 (05:41→12:43)
[2017-04-19 06:38] LABS: EOS # 0.1 K/uL (0.0-0.7); EOS % 2.3 % (0.0-4.0); HEMATOCRIT 32.6 % (34.0-47.0); LYMPH # 1.4 K/uL (1.0-4.3); MEAN CELL VOLUME 86.3 fL (81.0-99.0); MEAN CORPUSCULAR HEMOGLOBIN 26.9 pg (27.0-31.0); MEAN CORPUSCULAR HGB CONC 31.1 g/dL (33.0-37.0); MEAN PLATELET VOLUME 9.2 fL (7.2-11.7); MONO # 0.7 K/uL (0.0-0.8); MONO % 14.9 % (0.0-10.0); NRBC % 0.1 % (0.0-2.0); RED CELL DISTRIBUTION WIDTH 17.5 % (11.5-14.5); WHITE BLOOD COUNT 4.7 K/uL (4.8-10.8)
[2017-04-19 06:53] LABS: CHLORIDE 107 mmol/L (98-107); SODIUM 144 mmol/L (132-148)
[2017-04-19 06:54] LABS: POTASSIUM 3.9 mmol/L (3.6-5.2)
[2017-04-19 06:56] LABS: ALB/GLOB RATIO 0.9 (1.0-2.1); ALKALINE PHOSPHATASE 138 U/L (38-126); ALT/SGPT 34 U/L (9-52); AST/SGOT 26 U/L (14-36); BILIRUBIN,TOTAL 0.8 mg/dL (0.2-1.3); BLOOD UREA NITROGEN 17 mg/dL (7-17); CARBON DIOXIDE 26 mmol/L (22-30); GFR AFRICAN-AMERICAN > 60; GLUCOSE,RANDOM 141 mg/dL (65-105); TOTAL PROTEIN 6.7 g/dL (6.3-8.3)
--- NOTE | 2017-04-19 07:06 | CON ---
DATE: HISTORY OF PRESENT ILLNESS: She is an 87-year-old female. She has had chronic foot ulcers and she was transferred as she has been not able to ambulate anymore. She used to walk with a walker. She sees Dr. Hathaway for foot ulcers. She was brought in because she was having lower extremity pain and chronic ulcerations, not healing. The patient says she was not able to ambulate, used to ambulate before with a walker. PAST MEDICAL HISTORY: She has past medical history of anxiety, atrial fibrillation, CHF, COPD, dementia, diabetes, hypertension, hyperlipidemia, peripheral edema, depression, chronic kidney disease. ALLERGIES: SHE IS ALLERGIC TO ERTAPENEM. MEDICATIONS: They gave her vancomycin and clindamycin in the ER. SOCIAL HISTORY: Negative for smoking or drinking. REVIEW OF SYSTEMS: She denied any fever or chills. Denied any shortness of breath or chest pain. No nausea, no vomiting, no diarrhea. Does keep complaining of foot pain and edema and chronic ulcerations and she does have stasis dermatitis and ulcerations chronically. PHYSICAL EXAMINATION GENERAL: She was able to converse, but she kept on repeating her main problem. VITAL SIGNS: Her temperature is 98, pulse is 103, blood pressure 151/91, respirations are 18. HEENT: Head is atraumatic, normocephalic. Pupils are reacting to light. Tongue is moist. NECK: Supple. Neck vein was prominent, maybe slightly increased. LUNGS: Clear. No crackles or rales. No wheezing. Chest wall is symmetrical. HEART: S1 and S2. Irregularly irregular. No murmurs appreciated. ABDOMEN: Soft, nontender. No guarding. No rigidity present. EXTREMITIES: Had edema bilaterally and there is ulceration 3 x 3 on the left medial ankle and 4 cm x 4 cm was on the right ankle laterally and pulses were present; however, both legs have stasis dermatitis and edema. LABORATORY DATA: Labs are noted. Labs show white count is 4.9, hemoglobin 11.2, hematocrit 35.9, platelet count is 164. INR is 1.2. Sodium 141, potassium 4.4, chloride of 104, CO2 is 25, anion gap is 17, BUN is 19, creatinine is 1.0. UA showed protein plus, blood plus. She also had a chest x-ray. Chest x-ray was read as finding compatible with CHF with small pleural effusion, larger on the left. ASSESSMENT AND PLAN: At this time, we will cover her with vancomycin 1 g daily and we will follow. She is an elderly female. She is on Xarelto for atrial fibrillation. We will follow up with podiatry. She was already seen by Dr. Hathaway. I was told by her. We will follow and she may have renal insufficiency and venous insufficiency both. She is diabetic. 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 Marilee Prado MD
[2017-04-19] MEDS: (Novolog) Insulin Aspart, Recombinant 100 u/ml 10 ml vial SC SCH ×4 (07:47→22:14)
[2017-04-19] MEDS: Ammonium Lactate 12% Lotion (225 g) TOP SCH ×2 (10:32→18:22)
[2017-04-19] MEDS: Potassium Chloride 10 mEq ER Tab PO SCH (10:32)
--- NOTE | 2017-04-19 13:43 | CP.PCM.CON ---
History of Present Illness - History of Present Illness History of Present Illness: The pt s an 87 year old woman with chronic leg edema, weeping ulcers, podiatry consultation, many admissions for this. Four years ago , she had syncope in [employer]. At that time, she had episodic afib, was on tenormin and cardezem. No in permanent afib, on xarelto. No echo since 2013, normal EF at that time, but significant diastolic function was noted (read by me) and moderate pulmonary HTN. Pt had a 7 beat run of vtach yesterday without symptoms. Pt reports some increased SARKAR. Review of Systems - Review of Systems All systems: reviewed and no additional remarkable complaints except (as above) Past Patient History - Infectious Disease Hx of Infectious Diseases: None - Tetanus Immunizations Tetanus Immunization: Unknown - Past Medical History & Family History Past Medical History?: Yes - Past Social History Smoking Status: Never Smoked - CARDIAC Hx Cardiac Disorders: Yes Hx Atrial Fibrillation: Yes Hx Congestive Heart Failure: Yes Hx Hypercholesterolemia: Yes Hx Hypertension: Yes Hx Peripheral Edema: Yes - PULMONARY Hx Respiratory Disorders: Yes Hx Chronic Obstructive Pulmonary Disease (COPD): Yes - NEUROLOGICAL Hx Neurological Disorder: Yes Hx Dementia: Yes - HEENT Hx HEENT Problems: No Other/Comment: gets nasal congestion - RENAL Hx Chronic Kidney Disease: No - ENDOCRINE/METABOLIC Hx Endocrine Disorders: Yes Hx Diabetes Mellitus Type 2: Yes - HEMATOLOGICAL/ONCOLOGICAL Hx Blood Disorders: No Hx Blood Transfusions: No Hx Blood Transfusion Reaction: No - INTEGUMENTARY Hx Dermatological Problems: Yes Other/Comment: dry scaly skin, bilateral inner aspect of foot open wound. - MUSCULOSKELETAL/RHEUMATOLOGICAL Hx Musculoskeletal Disorders: Yes Hx Falls: Yes - GASTROINTESTINAL Hx Gastrointestinal Disorders: No - GENITOURINARY/GYNECOLOGICAL Hx Genitourinary Disorders: Yes Hx Urinary Tract Infection: Yes - PSYCHIATRIC Hx Anxiety: Yes - SURGICAL HISTORY Hx Surgeries: Yes Hx Section: Yes (x2) - ANESTHESIA Hx Anesthesia: Yes Hx Anesthesia Reactions: No Hx Malignant Hyperthermia: No Meds Allergies/Adverse Reactions: Allergies Allergy/AdvReac Type Severity Reaction Status Date / Time ertapenem sodium Allergy Verified 04/17/17 19:30 [From Erwin] - Medications Medications: Current Medications Furosemide (Lasix) 40 mg PO DAILY [facility] Last Admin: 04/19/17 10:31 Dose: 40 mg Vancomycin/Sodium Chloride (Vancocin) 1 gm in 200 mls @ 133.333 mls/hr IVPB Q24H [facility] Stop: 04/23/17 22:01 Last Admin: 04/18/17 22:46 Dose: 133.333 mls/hr Insulin Aspart (Novolog) 0 unit SC ACHS [facility] PRN Reason: Protocol Last Admin: 04/19/17 12:30 Dose: Not Given Lactic Acid (Lac-Hydrin 12% Lotion (225 G)) 0 gm TOP BID [facility] Last Admin: 04/19/17 10:32 Dose: 1 applic Lactulose (Enulose) 20 gm PO Q12 [facility] Last Admin: 04/19/17 10:32 Dose: Not Given Losartan Potassium (Cozaar) 100 mg PO DAILY [facility] Last Admin: 04/19/17 10:31 Dose: 100 mg Magnesium Hydroxide (Milk Of Magnesia) 30 ml PO Q8 PRN PRN Reason: Constipation Nitroglycerin (Nitro-Bid 2% Oint) 1 ea TOP Q6 [facility] Last Admin: 04/19/17 12:43 Dose: 1 ea Potassium Chloride (Klor-Con 10) 10 meq PO DAILY [facility] Last Admin: 04/19/17 10:32 Dose: 10 meq Rivaroxaban (Xarelto) 20 mg PO DAILY [facility] Last Admin: 04/18/17 11:55 Dose: 20 mg Sodium Hypochlorite (Dakins Solution 0.125%) 0.5 appl TOP BID [facility] Physical Exam - Constitutional Appears: Well - Head Exam Head Exam: ATRAUMATIC - Eye Exam Eye Exam: EOMI - ENT Exam ENT Exam: Mucous Membranes Moist - Neck Exam Neck exam: Positive for: Normal Inspection - Respiratory Exam Respiratory Exam: Decreased Breath Sounds - Cardiovascular Exam Cardiovascular Exam: Irregular Rhythm - GI/Abdominal Exam GI & Abdominal Exam: Normal Bowel Sounds - Exam External exam: Lesions, Swelling - Extremities Exam Extremities exam: Positive for: pedal edema - Neurological Exam Neurological exam: Alert, CN II-XII Intact, Oriented x3 - Psychiatric Exam Psychiatric exam: Anxious, Normal Affect Results - Vital Signs Recent Vital Signs: Last Vital Signs Temp 98.0 F 04/19/17 08:52 Pulse 106 H 04/19/17 08:52 Resp 20 04/19/17 08:52 BP 165/97 H 04/19/17 10:31 Pulse Ox 98 04/19/17 08:52 - Labs Result Diagrams: 04/19/17 06:32 04/19/17 06:32 Labs: Laboratory Results - last 24 hr 04/18/17 04/18/17 04/19/17 18:47 21:03 06:15 WBC RBC Hgb Hct MCV MCH MCHC RDW Plt Count MPV Neut % (Auto) Lymph % (Auto) [place] % (Auto) Eos % (Auto) Baso % (Auto) Neut # Lymph # [place] # Eos # Baso # Sodium Potassium Chloride Carbon Dioxide Anion Gap BUN Creatinine Est GFR ( Amer) Est GFR (Non-Af Amer) POC Glucose (mg/dL) 222 H 202 H 155 H Random Glucose Calcium Total Bilirubin AST ALT Alkaline Phosphatase Total Protein Albumin Globulin Albumin/Globulin Ratio 04/19/17 04/19/17 04/19/17 06:32 06:32 11:50 WBC 4.7 L RBC 3.78 L Hgb 10.1 L Hct 32.6 L MCV 86.3 MCH 26.9 L MCHC 31.1 L RDW 17.5 H Plt Count 153 MPV 9.2 Neut % (Auto) 51.8 Lymph % (Auto) 30.0 [place] % (Auto) 14.9 H Eos % (Auto) 2.3 Baso % (Auto) 1.0 Neut # 2.5 Lymph # 1.4 [place] # 0.7 Eos # 0.1 Baso # 0.0 Sodium 144 Potassium 3.9 Chloride 107 Carbon Dioxide 26 Anion Gap 15 BUN 17 Creatinine 0.8 Est GFR ( Amer) > 60 Est GFR (Non-Af Amer) > 60 POC Glucose (mg/dL) 219 H Random Glucose 141 H Calcium 9.0 Total Bilirubin 0.8 AST 26 ALT 34 Alkaline Phosphatase 138 H Total Protein 6.7 Albumin 3.1 L Globulin 3.6 Albumin/Globulin Ratio 0.9 L - EKG Data EKG Interpreted by: Myself (a fib, mildly fast rate) Assessment & Plan - Assessment and Plan (Free Text) Assessment: 1. leg edema, and abdominal bloating: pt may have HPEF, with pulmonary HTN. Plan : repeat echo assess LV and PA pressure, LV EF 2. Asymptomatic Vtach mag level, beta ermias, telemetry assess LV EF. 3. HTN add norvasc low dose (due to leg edema), beta ermias 4. Afib rate is fast. Low dose beta ermias and titrate as needed.
--- NOTE | 2017-04-19 14:18 | CP.PCM.PN ---
Subjective - Date & Time of Evaluation Date of Evaluation: 04/19/17 Time of Evaluation: 11:30 - Subjective Subjective: 87 year old woman with chronic leg edema and weeping ulcers bilaterally, seen at bedside. Pt denies any acute overnight events. Pt reports no acute overnight events. Pt denies recent f/c/cp/sob/n/v. Objective - Vital Signs/Intake and Output Vital Signs (last 24 hours): Temp Pulse Resp BP Pulse Ox 98.0 F 106 H 20 165/97 H 98 04/19/17 08:52 04/19/17 08:52 04/19/17 08:52 04/19/17 10:31 04/19/17 08:52 - Medications Medications: Current Medications Amlodipine Besylate (Norvasc) 2.5 mg PO DAILY [facility] Furosemide (Lasix) 40 mg PO DAILY [facility] Last Admin: 04/19/17 10:31 Dose: 40 mg Vancomycin/Sodium Chloride (Vancocin) 1 gm in 200 mls @ 133.333 mls/hr IVPB Q24H [facility] Stop: 04/23/17 22:01 Last Admin: 04/18/17 22:46 Dose: 133.333 mls/hr Insulin Aspart (Novolog) 0 unit SC ACHS [facility] PRN Reason: Protocol Last Admin: 04/19/17 12:30 Dose: Not Given Isosorbide Mononitrate (Imdur) 60 mg PO DAILY [facility] Lactic Acid (Lac-Hydrin 12% Lotion (225 G)) 0 gm TOP BID [facility] Last Admin: 04/19/17 10:32 Dose: 1 applic Lactulose (Enulose) 20 gm PO Q12 [facility] Last Admin: 04/19/17 10:32 Dose: Not Given Losartan Potassium (Cozaar) 100 mg PO DAILY [facility] Last Admin: 04/19/17 10:31 Dose: 100 mg Magnesium Hydroxide (Milk Of Magnesia) 30 ml PO Q8 PRN PRN Reason: Constipation Metoprolol Tartrate (Lopressor) 25 mg PO BID [facility] Potassium Chloride (Klor-Con 10) 10 meq PO DAILY [facility] Last Admin: 04/19/17 10:32 Dose: 10 meq Rivaroxaban (Xarelto) 20 mg PO DAILY [facility] Last Admin: 04/18/17 11:55 Dose: 20 mg Sodium Hypochlorite (Dakins Solution 0.125%) 0.5 appl TOP BID [facility] - Labs Labs: 04/19/17 06:32 04/19/17 06:32 PT 13.2 SECONDS (9.7-12.2) H 04/17/17 21:41 INR 1.2 04/17/17 21:41 - Constitutional Appears: Well, Non-toxic, No Acute Distress - Extremities Exam Additional comments: Lower extremity focused exam: Vasc: DP and PT pulses faintly palpable b/l. Skin temperature warm to cool from proximal to distal b/l Neuro: Gross sensation diminished b/l Ortho: Tenderness on palpation to wounds at right and left medial ankle Derm: Open ulcerations noted to the right ankle measuring approximately 4 cm by 4 cm by 0.3 cm with fibrogranular base, no malodor, no puruelnce noted. Ulceration noted to the left ankle measure approximately 2.5 cm by 1.5 cm by 0.3 cm with fibrogranular base, no malodor, no puruelnce noted. No erythema, no calor noted. - Neurological Exam Neurological Exam: Alert, Awake, Oriented x3 Assessment and Plan - Assessment and Plan (Free Text) Assessment: 87 year old female with b/l ulcerations noted to the respective lower extremities secondary to CHF. Plan: Patient examined and evaluated. Chart, labs, & vitals reviewed; afebrile, WBC 4.7 Discussed in detail with attending, Dr. Mack Ordered Dakin's 1/4 strength solution for use to wounds bilaterally 2 times daily in a wet to dry dressing fashion. Wounds dressed with saline wet-to-dry & DSD Continue IV abx per ID. Podiatry will continue to follow patient while in house.
--- NOTE | 2017-04-19 14:47 | CP.PCM.PN ---
Subjective - Date & Time of Evaluation Date of Evaluation: 04/19/17 Time of Evaluation: 11:40 - Subjective Subjective: clinically same Objective - Vital Signs/Intake and Output Vital Signs (last 24 hours): Temp Pulse Resp BP Pulse Ox 98.0 F 106 H 20 165/97 H 98 04/19/17 08:52 04/19/17 08:52 04/19/17 08:52 04/19/17 10:31 04/19/17 08:52 - Medications Medications: Current Medications Amlodipine Besylate (Norvasc) 2.5 mg PO DAILY [facility] Furosemide (Lasix) 40 mg PO DAILY [facility] Last Admin: 04/19/17 10:31 Dose: 40 mg Vancomycin/Sodium Chloride (Vancocin) 1 gm in 200 mls @ 133.333 mls/hr IVPB Q24H [facility] Stop: 04/23/17 22:01 Last Admin: 04/18/17 22:46 Dose: 133.333 mls/hr Insulin Aspart (Novolog) 0 unit SC ACHS [facility] PRN Reason: Protocol Last Admin: 04/19/17 12:30 Dose: Not Given Isosorbide Mononitrate (Imdur) 60 mg PO DAILY [facility] Lactic Acid (Lac-Hydrin 12% Lotion (225 G)) 0 gm TOP BID [facility] Last Admin: 04/19/17 10:32 Dose: 1 applic Lactulose (Enulose) 20 gm PO Q12 [facility] Last Admin: 04/19/17 10:32 Dose: Not Given Losartan Potassium (Cozaar) 100 mg PO DAILY [facility] Last Admin: 04/19/17 10:31 Dose: 100 mg Magnesium Hydroxide (Milk Of Magnesia) 30 ml PO Q8 PRN PRN Reason: Constipation Metoprolol Tartrate (Lopressor) 25 mg PO BID [facility] Potassium Chloride (Klor-Con 10) 10 meq PO DAILY [facility] Last Admin: 04/19/17 10:32 Dose: 10 meq Rivaroxaban (Xarelto) 20 mg PO DAILY [facility] Last Admin: 04/18/17 11:55 Dose: 20 mg Sodium Hypochlorite (Dakins Solution 0.125%) 0.5 appl TOP BID [facility] - Labs Labs: 04/19/17 06:32 04/19/17 06:32 PT 13.2 SECONDS (9.7-12.2) H 04/17/17 21:41 INR 1.2 04/17/17 21:41 - Constitutional Appears: Well - Head Exam Head Exam: ATRAUMATIC, NORMAL INSPECTION, NORMOCEPHALIC - Eye Exam Eye Exam: EOMI, Normal appearance, PERRL Pupil Exam: NORMAL ACCOMODATION, PERRL - ENT Exam ENT Exam: Mucous Membranes Moist, Normal Exam - Neck Exam Neck Exam: Full ROM, Normal Inspection. absent: Lymphadenopathy - Respiratory Exam Respiratory Exam: Decreased Breath Sounds - Cardiovascular Exam Cardiovascular Exam: REGULAR RHYTHM, +S1, +S2 - GI/Abdominal Exam GI & Abdominal Exam: Soft, Diminished Bowel Sounds - Rectal Exam Rectal Exam: Deferred
--- NOTE | 2017-04-19 15:07 | CP.PCM.PN ---
Subjective - Date & Time of Evaluation Date of Evaluation: 04/19/17 Time of Evaluation: 02:45 - Subjective Subjective: dictated Objective - Vital Signs/Intake and Output Vital Signs (last 24 hours): Temp Pulse Resp BP Pulse Ox 98.0 F 106 H 20 165/97 H 98 04/19/17 08:52 04/19/17 08:52 04/19/17 08:52 04/19/17 10:31 04/19/17 08:52 - Medications Medications: Current Medications Amlodipine Besylate (Norvasc) 2.5 mg PO DAILY [facility] Last Admin: 04/19/17 14:54 Dose: 2.5 mg Furosemide (Lasix) 40 mg PO DAILY [facility] Last Admin: 04/19/17 10:31 Dose: 40 mg Vancomycin/Sodium Chloride (Vancocin) 1 gm in 200 mls @ 133.333 mls/hr IVPB Q24H [facility] Stop: 04/23/17 22:01 Last Admin: 04/18/17 22:46 Dose: 133.333 mls/hr Insulin Aspart (Novolog) 0 unit SC ACHS [facility] PRN Reason: Protocol Last Admin: 04/19/17 12:30 Dose: Not Given Isosorbide Mononitrate (Imdur) 60 mg PO DAILY [facility] Lactic Acid (Lac-Hydrin 12% Lotion (225 G)) 0 gm TOP BID [facility] Last Admin: 04/19/17 10:32 Dose: 1 applic Lactulose (Enulose) 20 gm PO Q12 [facility] Last Admin: 04/19/17 10:32 Dose: Not Given Losartan Potassium (Cozaar) 100 mg PO DAILY [facility] Last Admin: 04/19/17 10:31 Dose: 100 mg Magnesium Hydroxide (Milk Of Magnesia) 30 ml PO Q8 PRN PRN Reason: Constipation Metoprolol Tartrate (Lopressor) 25 mg PO BID [facility] Potassium Chloride (Klor-Con 10) 10 meq PO DAILY [facility] Last Admin: 04/19/17 10:32 Dose: 10 meq Rivaroxaban (Xarelto) 20 mg PO DAILY [facility] Last Admin: 04/19/17 09:57 Dose: 20 mg Sodium Hypochlorite (Dakins Solution 0.125%) 0.5 appl TOP BID [facility] - Labs Labs: 04/19/17 06:32 04/19/17 06:32 PT 13.2 SECONDS (9.7-12.2) H 04/17/17 21:41 INR 1.2 04/17/17 21:41
[2017-04-19] MEDS: Vancomycin 1 gm/NS 200 ml 1 GM/200 ML BAG IVPB SCH (21:51)
--- NOTE | 2017-04-20 01:33 | CON ---
DATE: HISTORY OF PRESENT ILLNESS: The patient is accusing that she is not getting any antibiotics literally to the nurse and the nurse showed us the piggyback that was still on the bowl that she got at last night. The patient is also concerned about her cardiac failure issues. She is accusive it is just hard to tackle her. PHYSICAL EXAMINATION: VITAL SIGNS: T-max is 98.1, pulse 109, blood pressure 138/97, respirations are 18. Her blood pressure is on the higher side. HEENT: Head is atraumatic. NECK: Supple. LUNGS: Decreased breath sounds bilaterally. HEART: S1 and S2 is regular. ABDOMEN: Soft, nontender. No guarding, no rigidity present. EXTREMITIES: Remain with dressings and with mild edema. ALLERGIES: SHE IS ALLERGIC TO PENICILLIN HENCE WE HAVE PUT HER ON VANCOMYCIN AND SHE HAS DRIED ULCERS HENCE I DO NOT WANT TO OVERLOAD WITH ANTIBIOTICS. LABORATORY DATA: White count is 4.7, BUN is 17, creatinine is 0.8, and she is being followed by Dr. Hathaway who knows her best and she does have weeping edema with chronic leg edema and also will need to control of congestive heart failure along with the antibiotic and also if they can do any wound culture that would be helpful and these ulcers are noted and I want to see what surgery out of it. RECOMMENDATIONS: Surgery recommended only antibiotics and no debridement. We will continue and I would like to maintain her heart rate as irregularly irregular, which has been noted. Marilee Prado MD
--- NOTE | 2017-04-20 07:53 | CP.PCM.PN ---
Subjective - Date & Time of Evaluation Date of Evaluation: 04/20/17 Time of Evaluation: 07:00 - Subjective Subjective: clinically same Objective - Vital Signs/Intake and Output Vital Signs (last 24 hours): Temp Pulse Resp BP Pulse Ox 98.3 F 93 H 20 159/122 H 98 04/20/17 04:58 04/20/17 04:58 04/20/17 04:58 04/20/17 04:58 04/20/17 04:58 Intake and Output: 04/20/17 04/20/17 06:59 18:59 Intake Total 200 Balance 200 - Medications Medications: Current Medications Amlodipine Besylate (Norvasc) 10 mg PO DAILY [facility] Furosemide (Lasix) 40 mg PO DAILY [facility] Last Admin: 04/19/17 10:31 Dose: 40 mg Vancomycin/Sodium Chloride (Vancocin) 1 gm in 200 mls @ 133.333 mls/hr IVPB Q24H [facility] Stop: 04/23/17 22:01 Last Admin: 04/19/17 21:51 Dose: 133.333 mls/hr Insulin Aspart (Novolog) 0 unit SC ACHS [facility] PRN Reason: Protocol Last Admin: 04/19/17 22:14 Dose: Not Given Isosorbide Mononitrate (Imdur) 60 mg PO DAILY [facility] Ketorolac Tromethamine (Toradol) 10 mg PO Q8 PRN PRN Reason: Pain, moderate (4-7) Lactic Acid (Lac-Hydrin 12% Lotion (225 G)) 0 gm TOP BID [facility] Last Admin: 04/19/17 18:22 Dose: 1 applic Lactulose (Enulose) 20 gm PO Q12 [facility] Last Admin: 04/19/17 22:14 Dose: Not Given Losartan Potassium (Cozaar) 100 mg PO DAILY [facility] Last Admin: 04/19/17 10:31 Dose: 100 mg Magnesium Hydroxide (Milk Of Magnesia) 30 ml PO Q8 PRN PRN Reason: Constipation Metoprolol Tartrate (Lopressor) 25 mg PO BID [facility] Last Admin: 04/19/17 18:24 Dose: 25 mg Potassium Chloride (Klor-Con 10) 10 meq PO DAILY [facility] Last Admin: 04/19/17 10:32 Dose: 10 meq Rivaroxaban (Xarelto) 20 mg PO DAILY [facility] Last Admin: 04/19/17 09:57 Dose: 20 mg Sodium Hypochlorite (Dakins Solution 0.125%) 0.5 appl TOP BID [facility] Last Admin: 04/19/17 18:23 Dose: 0.5 appl - Labs Labs: 04/19/17 06:32 04/19/17 06:32 PT 13.2 SECONDS (9.7-12.2) H 04/17/17 21:41 INR 1.2 04/17/17 21:41 - Constitutional Appears: Well - Head Exam Head Exam: ATRAUMATIC, NORMAL INSPECTION, NORMOCEPHALIC - Eye Exam Eye Exam: EOMI, Normal appearance, PERRL Pupil Exam: NORMAL ACCOMODATION, PERRL - ENT Exam ENT Exam: Mucous Membranes Moist, Normal Exam - Neck Exam Neck Exam: Full ROM, Normal Inspection. absent: Lymphadenopathy - Respiratory Exam Respiratory Exam: Decreased Breath Sounds - Cardiovascular Exam Cardiovascular Exam: REGULAR RHYTHM, +S1, +S2 - GI/Abdominal Exam GI & Abdominal Exam: Soft, Diminished Bowel Sounds - Rectal Exam Rectal Exam: Deferred
[2017-04-20] MEDS: (Novolog) Insulin Aspart, Recombinant 100 u/ml 10 ml vial SC SCH ×4 (08:13→22:37)
[2017-04-20] MEDS: Potassium Chloride 10 mEq ER Tab PO SCH (09:51)
--- NOTE | 2017-04-20 09:51 | RAD ---
PROCEDURE: Radiographs of the Right Shoulder HISTORY: C/O pain R shoulder COMPARISON: None available. FINDINGS: BONES: Osseous demineralization. Degenerative changes. No acute displaced fracture. The distal clavicle and underlying ribs appear intact. JOINTS: No acute dislocation. Glenohumeral joint space narrowing. Acromioclavicular arthropathy. SOFT TISSUES: Soft tissues appear unremarkable. No evidence of radiopaque foreign body. Limited visualization of the lung whitley reveals mild pulmonary venous congestion. IMPRESSION: Osseous demineralization. Degenerative changes. No acute displaced fracture or dislocation evident. If symptoms persist or if there is continued clinical concern, x-ray follow-up in 7-10 days should be considered. Partially imaged mild pulmonary venous congestion.
--- NOTE | 2017-04-20 10:15 | CP.PCM.PN ---
Subjective - Date & Time of Evaluation Date of Evaluation: 04/20/17 Time of Evaluation: 10:20 - Subjective Subjective: 87 year old woman with chronic leg edema and ulcers bilaterally, seen at bedside. Pt is mildly agitated. Pt denies any acute overnight events. Pt reports no acute overnight events. Pt denies recent f/c/cp/sob/n/v. Objective - Vital Signs/Intake and Output Vital Signs (last 24 hours): Temp Pulse Resp BP Pulse Ox 97.7 F 110 H 20 177/101 H 97 04/20/17 09:54 04/20/17 09:54 04/20/17 09:54 04/20/17 09:54 04/20/17 09:54 Intake and Output: 04/20/17 04/20/17 06:59 18:59 Intake Total 200 Balance 200 - Medications Medications: Current Medications Amlodipine Besylate (Norvasc) 10 mg PO DAILY [facility] Furosemide (Lasix) 40 mg PO DAILY [facility] Last Admin: 04/20/17 09:46 Dose: 40 mg Vancomycin/Sodium Chloride (Vancocin) 1 gm in 200 mls @ 133.333 mls/hr IVPB Q24H [facility] Stop: 04/23/17 22:01 Last Admin: 04/19/17 21:51 Dose: 133.333 mls/hr Insulin Aspart (Novolog) 0 unit SC ACHS [facility] PRN Reason: Protocol Last Admin: 04/20/17 08:13 Dose: Not Given Isosorbide Mononitrate (Imdur) 60 mg PO DAILY [facility] Last Admin: 04/20/17 09:45 Dose: 60 mg Ketorolac Tromethamine (Toradol) 10 mg PO Q8 PRN PRN Reason: Pain, moderate (4-7) Last Admin: 04/20/17 08:02 Dose: 10 mg Lactic Acid (Lac-Hydrin 12% Lotion (225 G)) 0 gm TOP BID [facility] Last Admin: 04/19/17 18:22 Dose: 1 applic Lactulose (Enulose) 20 gm PO Q12 [facility] Last Admin: 04/20/17 09:46 Dose: 20 gm Losartan Potassium (Cozaar) 100 mg PO DAILY [facility] Last Admin: 04/20/17 09:45 Dose: 100 mg Magnesium Hydroxide (Milk Of Magnesia) 30 ml PO Q8 PRN PRN Reason: Constipation Metoprolol Tartrate (Lopressor) 25 mg PO BID [facility] Last Admin: 04/19/17 18:24 Dose: 25 mg Potassium Chloride (Klor-Con 10) 10 meq PO DAILY [facility] Last Admin: 04/20/17 09:51 Dose: 10 meq Rivaroxaban (Xarelto) 20 mg PO DAILY [facility] Last Admin: 04/20/17 09:45 Dose: 20 mg Sodium Hypochlorite (Dakins Solution 0.125%) 0.5 appl TOP BID [facility] Last Admin: 04/19/17 18:23 Dose: 0.5 appl - Labs Labs: 04/19/17 06:32 04/19/17 06:32 PT 13.2 SECONDS (9.7-12.2) H 04/17/17 21:41 INR 1.2 04/17/17 21:41 - Constitutional Appears: Well, Non-toxic, No Acute Distress - Extremities Exam Additional comments: Lower extremity focused exam: Vasc: DP and PT pulses faintly palpable b/l. Skin temperature warm to cool from proximal to distal b/l Neuro: Gross sensation diminished b/l Ortho: Tenderness on palpation to wounds at right and left medial ankle Derm: Open ulcerations noted to the right ankle measuring approximately 4 cm by 4 cm by 0.3 cm with fibrogranular base, no malodor, no puruelnce noted. Ulceration noted to the left ankle measure approximately 2.5 cm by 1.5 cm by 0.3 cm with fibrogranular base, no malodor, no puruelnce noted. No erythema, no calor noted. - Neurological Exam Neurological Exam: Alert, Awake, Oriented x3 - Psychiatric Exam Psychiatric exam: Agitated, Normal Affect Assessment and Plan - Assessment and Plan (Free Text) Assessment: 87 year old female with b/l ulcerations noted to the respective lower extremities secondary to CHF. Plan: Patient examined and evaluated. Chart, labs, & vitals reviewed; afebrile, absent leukocytosis. Discussed with attending, Dr. Mack Dressed wounds with [employer]domin[employer]'s wet-to-dry & DSD. Dressing to be changed 2 times daily. Wounds dressed with saline Continue IV abx per ID. Podiatry will continue to follow patient while in house.
[2017-04-20] MEDS: Ammonium Lactate 12% Lotion (225 g) TOP SCH ×2 (11:03→22:38)
--- NOTE | 2017-04-20 11:12 | RAD ---
PROCEDURE: Radiographs of the Left Shoulder HISTORY: PAIN COMPARISON: Chest x-ray performed 04/17/17 FINDINGS: BONES: Osseous demineralization limits evaluation for acute fracture lines. No acute displaced fracture. The distal clavicle and underlying ribs appear intact. JOINTS: No acute dislocation. Glenohumeral joint space narrowing. Acromioclavicular arthropathy. High-riding humeral head consistent with chronic rotator cuff injury. SOFT TISSUES: Soft tissues appear unremarkable. No evidence of radiopaque foreign body. IMPRESSION: No acute displaced fracture or dislocation identified. Osseous demineralization. Degenerative changes. Evidence of chronic rotator cuff injury.
--- NOTE | 2017-04-20 12:12 | CP.PCM.PN ---
Subjective - Date & Time of Evaluation Date of Evaluation: 04/20/17 Time of Evaluation: 12:08 - Subjective Subjective: Pt has limited ROM of her shoulder, had an ex ray. Objective - Vital Signs/Intake and Output Vital Signs (last 24 hours): Temp Pulse Resp BP Pulse Ox 97.7 F 110 H 20 150/100 H 97 04/20/17 09:54 04/20/17 09:54 04/20/17 09:54 04/20/17 11:03 04/20/17 09:54 Intake and Output: 04/20/17 04/20/17 06:59 18:59 Intake Total 200 Balance 200 - Medications Medications: Current Medications Amlodipine Besylate (Norvasc) 10 mg PO DAILY [facility] Furosemide (Lasix) 40 mg PO DAILY [facility] Last Admin: 04/20/17 09:46 Dose: 40 mg Vancomycin/Sodium Chloride (Vancocin) 1 gm in 200 mls @ 133.333 mls/hr IVPB Q24H [facility] Stop: 04/23/17 22:01 Last Admin: 04/19/17 21:51 Dose: 133.333 mls/hr Insulin Aspart (Novolog) 0 unit SC ACHS [facility] PRN Reason: Protocol Last Admin: 04/20/17 11:29 Dose: 2 unit Isosorbide Mononitrate (Imdur) 60 mg PO DAILY [facility] Last Admin: 04/20/17 09:45 Dose: 60 mg Ketorolac Tromethamine (Toradol) 10 mg PO Q8 PRN PRN Reason: Pain, moderate (4-7) Last Admin: 04/20/17 08:02 Dose: 10 mg Lactic Acid (Lac-Hydrin 12% Lotion (225 G)) 0 gm TOP BID [facility] Last Admin: 04/20/17 11:03 Dose: 1 applic Lactulose (Enulose) 20 gm PO Q12 [facility] Last Admin: 04/20/17 09:46 Dose: 20 gm Losartan Potassium (Cozaar) 100 mg PO DAILY [facility] Last Admin: 04/20/17 09:45 Dose: 100 mg Magnesium Hydroxide (Milk Of Magnesia) 30 ml PO Q8 PRN PRN Reason: Constipation Metoprolol Tartrate (Lopressor) 25 mg PO BID [facility] Last Admin: 04/20/17 11:03 Dose: 25 mg Potassium Chloride (Klor-Con 10) 10 meq PO DAILY [facility] Last Admin: 04/20/17 09:51 Dose: 10 meq Rivaroxaban (Xarelto) 20 mg PO DAILY [facility] Last Admin: 04/20/17 09:45 Dose: 20 mg Sodium Hypochlorite (Dakins Solution 0.125%) 0.5 appl TOP BID [facility] Last Admin: 04/20/17 11:03 Dose: 0.5 appl - Labs Labs: 04/19/17 06:32 04/19/17 06:32 PT 13.2 SECONDS (9.7-12.2) H 04/17/17 21:41 INR 1.2 04/17/17 21:41 - Constitutional Appears: Well - Head Exam Head Exam: ATRAUMATIC - Eye Exam Eye Exam: EOMI, Normal appearance - ENT Exam ENT Exam: Mucous Membranes Moist - Respiratory Exam Respiratory Exam: Clear to Ausculation Bilateral - Cardiovascular Exam Cardiovascular Exam: Irregular Rhythm - GI/Abdominal Exam GI & Abdominal Exam: Normal Bowel Sounds - Exam External exam: Lacerations, Lesions, Swelling - Neurological Exam Neurological Exam: Alert, Awake, Oriented x3 Assessment and Plan - Assessment and Plan (Free Text) Assessment: 1. THe patient says that she will refuse the echo. i told her that the echo may explain her leg edema, and targeted treatment might help, but she says that she does not need the test. 2. Afib rate is better with beta ermias'2. Anticoagulated. 3. Non sustained vtach: mag ordered. need echo to assess LV EF. see above. 4. If pt refuses echo, then will sign off. If she agrees, will follow up and base treatment plan on echo.
--- NOTE | 2017-04-20 17:41 | CARD ---
APPROVED REPORT EKG Measurement Heart [id number] <Conclusion> Atrial fibrillation with rapid ventricular response Rightward axis Cannot rule out Anterior infarct, age undetermined T wave abnormality, consider inferior ischemia Abnormal ECG
[2017-04-20] MEDS: Vancomycin 1 gm/NS 200 ml 1 GM/200 ML BAG IVPB SCH (22:36)
--- NOTE | 2017-04-21 00:31 | CP.PCM.PN ---
Subjective - Date & Time of Evaluation Date of Evaluation: 04/21/17 Time of Evaluation: 00:30 - Subjective Subjective: Patient with 5 beat run vtach. Telemetry reviewed. Patient asymptomatic. EKG and stat labs ordered. Patient noted to have 7 beat run two nights ago. Patient now with 18 beats vtach, labs still pending. EKG with afib with PVC. Dr. Meeks to be notified. Objective - Vital Signs/Intake and Output Vital Signs (last 24 hours): Temp Pulse Resp BP Pulse Ox 98.1 F 81 20 159/91 H 99 04/20/17 23:22 04/20/17 23:22 04/20/17 23:22 04/20/17 23:22 04/20/17 23:22 Intake and Output: 04/20/17 04/21/17 18:59 06:59 Intake Total 500 Output Total 450 Balance 50 - Medications Medications: Current Medications Amlodipine Besylate (Norvasc) 10 mg PO DAILY [facility] Furosemide (Lasix) 40 mg PO DAILY [facility] Last Admin: 04/20/17 09:46 Dose: 40 mg Vancomycin/Sodium Chloride (Vancocin) 1 gm in 200 mls @ 133.333 mls/hr IVPB Q24H [facility] Stop: 04/23/17 22:01 Last Admin: 04/20/17 22:36 Dose: 133.333 mls/hr Insulin Aspart (Novolog) 0 unit SC ACHS [facility] PRN Reason: Protocol Last Admin: 04/20/17 22:37 Dose: Not Given Isosorbide Mononitrate (Imdur) 60 mg PO DAILY [facility] Last Admin: 04/20/17 09:45 Dose: 60 mg Ketorolac Tromethamine (Toradol) 10 mg PO Q8 PRN PRN Reason: Pain, moderate (4-7) Last Admin: 04/20/17 08:02 Dose: 10 mg Lactic Acid (Lac-Hydrin 12% Lotion (225 G)) 0 gm TOP BID [facility] Last Admin: 04/20/17 22:38 Dose: 1 applic Lactulose (Enulose) 20 gm PO Q12 [facility] Last Admin: 04/20/17 22:39 Dose: Not Given Losartan Potassium (Cozaar) 100 mg PO DAILY [facility] Last Admin: 04/20/17 09:45 Dose: 100 mg Magnesium Hydroxide (Milk Of Magnesia) 30 ml PO Q8 PRN PRN Reason: Constipation Metoprolol Tartrate (Lopressor) 25 mg PO BID [facility] Last Admin: 04/20/17 18:32 Dose: 25 mg Potassium Chloride (Klor-Con 10) 10 meq PO DAILY [facility] Last Admin: 04/20/17 09:51 Dose: 10 meq Rivaroxaban (Xarelto) 20 mg PO DAILY [facility] Last Admin: 04/20/17 09:45 Dose: 20 mg Sodium Hypochlorite (Dakins Solution 0.125%) 0.5 appl TOP BID [facility] Last Admin: 04/20/17 22:39 Dose: 0.5 appl - Labs Labs: PT 13.2 SECONDS (9.7-12.2) H 04/17/17 21:41 INR 1.2 04/17/17 21:41
[2017-04-21 00:43] LABS: BASO % 0.9 % (0.0-2.0); EOS # 0.2 K/uL (0.0-0.7); HEMATOCRIT 31.6 % (34.0-47.0); LYMPH # 1.1 K/uL (1.0-4.3); LYMPH % 21.6 % (20.0-40.0); MEAN CELL VOLUME 86.2 fL (81.0-99.0); MEAN CORPUSCULAR HGB CONC 31.4 g/dL (33.0-37.0); MEAN PLATELET VOLUME 8.4 fL (7.2-11.7); MONO # 0.8 K/uL (0.0-0.8); MONO % 15.2 % (0.0-10.0); NRBC % 0.1 % (0.0-2.0); RED CELL DISTRIBUTION WIDTH 17.7 % (11.5-14.5); WHITE BLOOD COUNT 5.1 K/uL (4.8-10.8)
[2017-04-21 01:07] LABS: ALKALINE PHOSPHATASE 121 U/L (38-126); ALT/SGPT 30 U/L (9-52); AST/SGOT 28 U/L (14-36); BILIRUBIN,TOTAL 0.4 mg/dL (0.2-1.3); BLOOD UREA NITROGEN 18 mg/dL (7-17); CALCIUM 8.6 mg/dl (8.6-10.4); CARBON DIOXIDE 25 mmol/L (22-30); CHLORIDE 104 mmol/L (98-107); GFR AFRICAN-AMERICAN > 60; GLUCOSE,RANDOM 205 mg/dL (65-105); MAGNESIUM 1.7 mg/dL (1.6-2.3); PHOSPHOROUS 3.3 mg/dL (2.5-4.5); POTASSIUM 4.1 mmol/L (3.6-5.2); SODIUM 139 mmol/L (132-148); TOTAL PROTEIN 6.5 g/dL (6.3-8.3)
[2017-04-21] MEDS: Magnesium Sulfate 1 gm in D5W 1 GM/100 ML BAG IVPB SCH ×2 (01:55→03:00)
[2017-04-21] MEDS ORDERED: Magnesium Sulfate 1 gm in D5W 1 GM/100 ML BAG IVPB SCH (02:00)
[2017-04-21] MEDS: (Novolog) Insulin Aspart, Recombinant 100 u/ml 10 ml vial SC SCH ×4 (08:30→21:42)
--- NOTE | 2017-04-21 10:06 | CP.PCM.PN ---
Subjective - Date & Time of Evaluation Date of Evaluation: 04/21/17 Time of Evaluation: 09:58 - Subjective Subjective: pt feels ok, Asymptomatic non sustained vtach . magwas a little low. no replaced. Objective - Vital Signs/Intake and Output Vital Signs (last 24 hours): Temp Pulse Resp BP Pulse Ox 97.5 F L 59 L 20 169/100 H 99 04/21/17 08:05 04/21/17 08:05 04/21/17 08:05 04/21/17 08:05 04/21/17 08:05 Intake and Output: 04/21/17 04/21/17 06:59 18:59 Intake Total 767 Output Total 450 Balance 317 - Medications Medications: Current Medications Amlodipine Besylate (Norvasc) 10 mg PO DAILY [facility] Furosemide (Lasix) 40 mg PO DAILY [facility] Last Admin: 04/20/17 09:46 Dose: 40 mg Vancomycin/Sodium Chloride (Vancocin) 1 gm in 200 mls @ 133.333 mls/hr IVPB Q24H [facility] Stop: 04/23/17 22:01 Last Admin: 04/20/17 22:36 Dose: 133.333 mls/hr Insulin Aspart (Novolog) 0 unit SC ACHS [facility] PRN Reason: Protocol Last Admin: 04/21/17 08:30 Dose: 1 unit Isosorbide Mononitrate (Imdur) 60 mg PO DAILY [facility] Last Admin: 04/20/17 09:45 Dose: 60 mg Ketorolac Tromethamine (Toradol) 10 mg PO Q8 PRN PRN Reason: Pain, moderate (4-7) Last Admin: 04/20/17 08:02 Dose: 10 mg Lactic Acid (Lac-Hydrin 12% Lotion (225 G)) 0 gm TOP BID [facility] Last Admin: 04/20/17 22:38 Dose: 1 applic Lactulose (Enulose) 20 gm PO Q12 [facility] Last Admin: 04/20/17 22:39 Dose: Not Given Losartan Potassium (Cozaar) 100 mg PO DAILY [facility] Last Admin: 04/20/17 09:45 Dose: 100 mg Magnesium Hydroxide (Milk Of Magnesia) 30 ml PO Q8 PRN PRN Reason: Constipation Metoprolol Tartrate (Lopressor) 25 mg PO BID [facility] Last Admin: 04/20/17 18:32 Dose: 25 mg Potassium Chloride (Klor-Con 10) 10 meq PO DAILY [facility] Last Admin: 04/20/17 09:51 Dose: 10 meq Rivaroxaban (Xarelto) 20 mg PO DAILY [facility] Last Admin: 04/20/17 09:45 Dose: 20 mg Sodium Hypochlorite (Dakins Solution 0.125%) 0.5 appl TOP BID [facility] Last Admin: 04/20/17 22:39 Dose: 0.5 appl - Labs Labs: 04/21/17 00:40 04/21/17 00:40 PT 13.2 SECONDS (9.7-12.2) H 04/17/17 21:41 INR 1.2 04/17/17 21:41 - Constitutional Appears: Well - Head Exam Head Exam: ATRAUMATIC - Eye Exam Eye Exam: EOMI Pupil Exam: NORMAL ACCOMODATION - ENT Exam ENT Exam: Mucous Membranes Moist - Neck Exam Neck Exam: Normal Inspection - Respiratory Exam Respiratory Exam: Clear to Ausculation Bilateral - Cardiovascular Exam Cardiovascular Exam: REGULAR RHYTHM - GI/Abdominal Exam GI & Abdominal Exam: Soft, Normal Bowel Sounds - Exam External exam: Swelling - Extremities Exam Extremities Exam: Full ROM, Pedal Edema - Back Exam Back Exam: NORMAL INSPECTION - Neurological Exam Neurological Exam: Awake, Oriented x3 - Psychiatric Exam Psychiatric exam: Normal Affect - Skin Skin Exam: Warm Assessment and Plan - Assessment and Plan (Free Text) Assessment: Pt had a run of vtach last night, mag was a little low. No symptoms Pt has refused echo, and is very obstinate. She passed out a month ago, and was informed that abnormal heart beats could be fatal, and she may still refuse. work up incluedes EF assessment and possible cath, which pt will also likely refuse. Will advance meds, also for HTN
[2017-04-21] MEDS: Potassium Chloride 10 mEq ER Tab PO SCH (10:35)
[2017-04-21] MEDS: Ammonium Lactate 12% Lotion (225 g) TOP SCH ×2 (10:36→17:28)
--- NOTE | 2017-04-21 13:16 | CP.PCM.PN ---
Subjective - Date & Time of Evaluation Date of Evaluation: 04/21/17 Time of Evaluation: 13:16 - Subjective Subjective: Medicine coverage for Dr. Cristina Bowen Patient seen and examined Chart reviewed Objective - Vital Signs/Intake and Output Vital Signs (last 24 hours): Temp Pulse Resp BP Pulse Ox 97.5 F L 59 L 20 169/100 H 99 04/21/17 08:05 04/21/17 08:05 04/21/17 08:05 04/21/17 10:35 04/21/17 08:05 Intake and Output: 04/21/17 04/21/17 06:59 18:59 Intake Total 767 Output Total 450 Balance 317 - Medications Medications: Current Medications Amlodipine Besylate (Norvasc) 10 mg PO DAILY [facility] Last Admin: 04/21/17 10:35 Dose: 10 mg Furosemide (Lasix) 40 mg PO DAILY [facility] Last Admin: 04/21/17 10:35 Dose: 40 mg Vancomycin/Sodium Chloride (Vancocin) 1 gm in 200 mls @ 133.333 mls/hr IVPB Q24H [facility] Stop: 04/23/17 22:01 Last Admin: 04/20/17 22:36 Dose: 133.333 mls/hr Insulin Aspart (Novolog) 0 unit SC ACHS [facility] PRN Reason: Protocol Last Admin: 04/21/17 12:50 Dose: 3 unit Isosorbide Mononitrate (Imdur) 60 mg PO DAILY [facility] Last Admin: 04/21/17 10:35 Dose: 60 mg Ketorolac Tromethamine (Toradol) 10 mg PO Q8 PRN PRN Reason: Pain, moderate (4-7) Last Admin: 04/20/17 08:02 Dose: 10 mg Lactic Acid (Lac-Hydrin 12% Lotion (225 G)) 0 gm TOP BID [facility] Last Admin: 04/21/17 10:36 Dose: 1 applic Lactulose (Enulose) 20 gm PO Q12 [facility] Last Admin: 04/21/17 10:38 Dose: 20 gm Losartan Potassium (Cozaar) 100 mg PO DAILY [facility] Last Admin: 04/21/17 10:35 Dose: 100 mg Magnesium Hydroxide (Milk Of Magnesia) 30 ml PO Q8 PRN PRN Reason: Constipation Metoprolol Tartrate (Lopressor) 50 mg PO BID [facility] Potassium Chloride (Klor-Con 10) 10 meq PO DAILY [facility] Last Admin: 04/21/17 10:35 Dose: 10 meq Rivaroxaban (Xarelto) 20 mg PO DAILY [facility] Last Admin: 04/21/17 10:36 Dose: 20 mg Sodium Hypochlorite (Dakins Solution 0.125%) 0.5 appl TOP BID [facility] Last Admin: 04/21/17 10:37 Dose: 0.5 appl - Labs Labs: 04/21/17 00:40 04/21/17 00:40 PT 13.2 SECONDS (9.7-12.2) H 04/17/17 21:41 INR 1.2 04/17/17 21:41 - Head Exam Head Exam: NORMAL INSPECTION - Eye Exam Eye Exam: Normal appearance - ENT Exam ENT Exam: Mucous Membranes Moist - Respiratory Exam Respiratory Exam: Rales, Rhonchi - GI/Abdominal Exam GI & Abdominal Exam: Soft, Normal Bowel Sounds - Extremities Exam Extremities Exam: Pedal Edema - Neurological Exam Neurological Exam: Alert, Oriented x3 - Psychiatric Exam Psychiatric exam: Normal Affect, Normal Mood Assessment and Plan - Assessment and Plan (Free Text) Assessment: CHF A. fib NSVT Diabetes Lower extremity stasis ulcers Diuresis Continue Xarelto Cardiology and ID follow-up Continue vancomycin Continue supportive care DVT GI prophylaxis
--- NOTE | 2017-04-21 15:45 | CP.PCM.PN ---
Subjective - Date & Time of Evaluation Date of Evaluation: 04/21/17 Time of Evaluation: 15:45 - Subjective Subjective: 87 year old woman with chronic leg edema and ulcers bilaterally, seen at bedside. Pt denies any acute overnight events. Pt denies any n/v/f/c/sob/cp. Objective - Vital Signs/Intake and Output Vital Signs (last 24 hours): Temp Pulse Resp BP Pulse Ox 97.5 F L 59 L 20 169/100 H 99 04/21/17 08:05 04/21/17 08:05 04/21/17 08:05 04/21/17 10:35 04/21/17 08:05 Intake and Output: 04/21/17 04/21/17 06:59 18:59 Intake Total 767 Output Total 450 Balance 317 - Medications Medications: Current Medications Amlodipine Besylate (Norvasc) 10 mg PO DAILY [facility] Last Admin: 04/21/17 10:35 Dose: 10 mg Furosemide (Lasix) 40 mg PO DAILY [facility] Last Admin: 04/21/17 10:35 Dose: 40 mg Vancomycin/Sodium Chloride (Vancocin) 1 gm in 200 mls @ 133.333 mls/hr IVPB Q24H [facility] Stop: 04/23/17 22:01 Last Admin: 04/20/17 22:36 Dose: 133.333 mls/hr Insulin Aspart (Novolog) 0 unit SC ACHS [facility] PRN Reason: Protocol Last Admin: 04/21/17 12:50 Dose: 3 unit Isosorbide Mononitrate (Imdur) 60 mg PO DAILY [facility] Last Admin: 04/21/17 10:35 Dose: 60 mg Ketorolac Tromethamine (Toradol) 10 mg PO Q8 PRN PRN Reason: Pain, moderate (4-7) Last Admin: 04/20/17 08:02 Dose: 10 mg Lactic Acid (Lac-Hydrin 12% Lotion (225 G)) 0 gm TOP BID [facility] Last Admin: 04/21/17 10:36 Dose: 1 applic Lactulose (Enulose) 20 gm PO Q12 [facility] Last Admin: 04/21/17 10:38 Dose: 20 gm Losartan Potassium (Cozaar) 100 mg PO DAILY [facility] Last Admin: 04/21/17 10:35 Dose: 100 mg Magnesium Hydroxide (Milk Of Magnesia) 30 ml PO Q8 PRN PRN Reason: Constipation Metoprolol Tartrate (Lopressor) 50 mg PO BID [facility] Potassium Chloride (Klor-Con 10) 10 meq PO DAILY [facility] Last Admin: 04/21/17 10:35 Dose: 10 meq Rivaroxaban (Xarelto) 20 mg PO DAILY [facility] Last Admin: 04/21/17 10:36 Dose: 20 mg Sodium Hypochlorite (Dakins Solution 0.125%) 0.5 appl TOP BID [facility] Last Admin: 04/21/17 10:37 Dose: 0.5 appl - Labs Labs: 04/21/17 00:40 04/21/17 00:40 PT 13.2 SECONDS (9.7-12.2) H 04/17/17 21:41 INR 1.2 04/17/17 21:41 - Constitutional Appears: Non-toxic, No Acute Distress - Extremities Exam Additional comments: Lower extremity focused exam: Vasc: DP and PT pulses faintly palpable b/l. Skin temperature warm to cool from proximal to distal b/l Neuro: Gross sensation diminished b/l Ortho: Tenderness on palpation to wounds at right and left medial ankle Derm: Open ulcerations noted to the right ankle measuring approximately 4 cm by 4 cm by 0.3 cm with fibrogranular base, no malodor, no puruelnce noted. Ulceration noted to the left ankle measure approximately 2.5 cm by 1.5 cm by 0.3 cm with fibrogranular base, no malodor, no puruelnce noted. No erythema, no calor noted. - Neurological Exam Neurological Exam: Alert, Awake - Psychiatric Exam Psychiatric exam: Normal Affect, Normal Mood Assessment and Plan - Assessment and Plan (Free Text) Assessment: 87 year old female with b/l ulcerations noted to the respective lower extremities secondary to CHF. Plan: Patient examined and evaluated. Chart, labs, & vitals reviewed; afebrile, WBC 5.1 Discussed with attending, Dr. Mack Wounds cleansed with normal sterile saline Dressed wounds with Dakin's wet-to-dry & DSD. Dressing to be changed 2 times daily. Continue IV abx per ID. Podiatry will continue to follow patient while in house.
--- NOTE | 2017-04-21 19:30 | CP.PCM.PN ---
Subjective - Date & Time of Evaluation Date of Evaluation: 04/21/17 Time of Evaluation: 02:20 - Subjective Subjective: dictated Objective - Vital Signs/Intake and Output Vital Signs (last 24 hours): Temp Pulse Resp BP Pulse Ox 97.3 F L 84 20 133/96 H 99 04/21/17 15:00 04/21/17 17:36 04/21/17 15:00 04/21/17 17:36 04/21/17 15:00 - Medications Medications: Current Medications Amlodipine Besylate (Norvasc) 10 mg PO DAILY [facility] Last Admin: 04/21/17 10:35 Dose: 10 mg Furosemide (Lasix) 40 mg PO DAILY [facility] Last Admin: 04/21/17 10:35 Dose: 40 mg Vancomycin/Sodium Chloride (Vancocin) 1 gm in 200 mls @ 133.333 mls/hr IVPB Q24H [facility] Stop: 04/23/17 22:01 Last Admin: 04/20/17 22:36 Dose: 133.333 mls/hr Insulin Aspart (Novolog) 0 unit SC ACHS [facility] PRN Reason: Protocol Last Admin: 04/21/17 17:16 Dose: 4 unit Isosorbide Mononitrate (Imdur) 60 mg PO DAILY [facility] Last Admin: 04/21/17 10:35 Dose: 60 mg Ketorolac Tromethamine (Toradol) 10 mg PO Q8 PRN PRN Reason: Pain, moderate (4-7) Last Admin: 04/20/17 08:02 Dose: 10 mg Lactic Acid (Lac-Hydrin 12% Lotion (225 G)) 0 gm TOP BID [facility] Last Admin: 04/21/17 17:28 Dose: 1 applic Lactulose (Enulose) 20 gm PO Q12 [facility] Last Admin: 04/21/17 10:38 Dose: 20 gm Losartan Potassium (Cozaar) 100 mg PO DAILY [facility] Last Admin: 04/21/17 10:35 Dose: 100 mg Magnesium Hydroxide (Milk Of Magnesia) 30 ml PO Q8 PRN PRN Reason: Constipation Metoprolol Tartrate (Lopressor) 50 mg PO BID [facility] Last Admin: 04/21/17 17:17 Dose: 50 mg Potassium Chloride (Klor-Con 10) 10 meq PO DAILY [facility] Last Admin: 04/21/17 10:35 Dose: 10 meq Rivaroxaban (Xarelto) 20 mg PO DAILY [facility] Last Admin: 04/21/17 10:36 Dose: 20 mg Sodium Hypochlorite (Dakins Solution 0.125%) 0.5 appl TOP BID [facility] Last Admin: 04/21/17 17:27 Dose: Not Given - Labs Labs: 04/21/17 00:40 04/21/17 00:40 PT 13.2 SECONDS (9.7-12.2) H 04/17/17 21:41 INR 1.2 04/17/17 21:41
[2017-04-21] MEDS: Vancomycin 1 gm/NS 200 ml 1 GM/200 ML BAG IVPB SCH (21:34)
--- NOTE | 2017-04-22 02:59 | PN ---
SUBJECTIVE: When I went to see the patient today, she was very drowsy. She did not want to be dodged. She did not want to wake up and she did have bilateral dressings on her legs. She did have an episode of V-TACH 5 beats before which was reported. Her is aware of and I do not see any change in her and she was, however, drowsy at that time. PHYSICAL EXAMINATION VITAL SIGNS: Stable. T-max of 97.3, pulse 95, blood pressure 170/88 and respirations are 20. HEENT: Head is atraumatic and normocephalic. NECK: Supple. LUNGS: Clear. No crackles or rales present. HEART: S1 and S2 is irregularly regular. ABDOMEN: Soft. Nontender. No guarding. No rigidity present. EXTREMITIES: Bilateral ankle edema and dressings present. LABORATORY DATA: White count is 5.1, hemoglobin 9.9, hematocrit 31.6 and platelet count is 148. She has BUN of 18 and creatinine 0.8. Blood culture x2 are negative. There is no urine culture, probably she is incontinent. IMPRESSION: She has chronic ulcerations which get worse when she is swollen because of atrial fibrillation and the patient is being followed by radio talk show host and also by the home health registered nurse. She has had these for a long time and will need help from cardiology as well as podiatry. Since they are superficial ulcerations and they are dry, she is on vancomycin. SHE IS ALSO ALLERGIC TO MULTIPLE ANTIBIOTICS; hence, we will continue vancomycin, give it for 10 to 14 days while she is here and we will follow. In one of these days if she allows me, I would look at the ulcers and she has had these chronic ulcerations, so I do not see the need to do a bone scan or an MRI. Marilee Prado MD
[2017-04-22] MEDS: (Novolog) Insulin Aspart, Recombinant 100 u/ml 10 ml vial SC SCH ×4 (09:01→21:44)
[2017-04-22] MEDS: Potassium Chloride 10 mEq ER Tab PO SCH (12:35)
[2017-04-22] MEDS: Ammonium Lactate 12% Lotion (225 g) TOP SCH ×2 (12:35→21:33)
--- NOTE | 2017-04-22 13:41 | CP.PCM.PN ---
Subjective - Date & Time of Evaluation Date of Evaluation: 04/22/17 Time of Evaluation: 13:41 - Subjective Subjective: 87 year old female was seen today at bedside with attending, Dr. Mack regarding chronic leg edema and ulcers bilaterally. Pt denies any acute overnight events. Pt denies any n/v/f/c/sob/cp. Objective - Vital Signs/Intake and Output Vital Signs (last 24 hours): Temp Pulse Resp BP Pulse Ox 97.3 F L 86 20 151/106 H 98 04/22/17 08:00 04/22/17 08:00 04/22/17 08:00 04/22/17 09:42 04/22/17 08:00 Intake and Output: 04/22/17 04/22/17 06:59 18:59 Intake Total 640 Balance 640 - Medications Medications: Current Medications Amlodipine Besylate (Norvasc) 10 mg PO DAILY [facility] Last Admin: 04/22/17 12:36 Dose: Not Given Furosemide (Lasix) 40 mg PO DAILY [facility] Last Admin: 04/22/17 12:35 Dose: Not Given Vancomycin/Sodium Chloride (Vancocin) 1 gm in 200 mls @ 133.333 mls/hr IVPB Q24H [facility] Stop: 04/23/17 22:01 Last Admin: 04/21/17 21:34 Dose: 133.333 mls/hr Insulin Aspart (Novolog) 0 unit SC ACHS [facility] PRN Reason: Protocol Last Admin: 04/22/17 12:36 Dose: Not Given Isosorbide Mononitrate (Imdur) 60 mg PO DAILY [facility] Last Admin: 04/22/17 12:35 Dose: Not Given Ketorolac Tromethamine (Toradol) 10 mg PO Q8 PRN PRN Reason: Pain, moderate (4-7) Last Admin: 04/20/17 08:02 Dose: 10 mg Lactic Acid (Lac-Hydrin 12% Lotion (225 G)) 0 gm TOP BID [facility] Last Admin: 04/22/17 12:35 Dose: Not Given Lactulose (Enulose) 20 gm PO Q12 [facility] Last Admin: 04/22/17 12:35 Dose: Not Given Losartan Potassium (Cozaar) 100 mg PO DAILY [facility] Last Admin: 04/22/17 12:35 Dose: Not Given Magnesium Hydroxide (Milk Of Magnesia) 30 ml PO Q8 PRN PRN Reason: Constipation Metoprolol Tartrate (Lopressor) 50 mg PO BID [facility] Last Admin: 04/22/17 12:36 Dose: Not Given Potassium Chloride (Klor-Con 10) 10 meq PO DAILY [facility] Last Admin: 04/22/17 12:35 Dose: Not Given Rivaroxaban (Xarelto) 20 mg PO DAILY [facility] Last Admin: 04/22/17 12:37 Dose: Not Given Sodium Hypochlorite (Dakins Solution 0.125%) 0.5 appl TOP BID [facility] Last Admin: 04/22/17 12:35 Dose: Not Given - Labs Labs: 04/21/17 00:40 04/21/17 00:40 PT 13.2 SECONDS (9.7-12.2) H 04/17/17 21:41 INR 1.2 04/17/17 21:41 - Constitutional Appears: Non-toxic, No Acute Distress - Extremities Exam Additional comments: Lower extremity focused exam: Vasc: DP and PT pulses faintly palpable b/l. Skin temperature warm to cool from proximal to distal b/l. Neuro: Gross sensation diminished b/l Ortho: Tenderness on palpation to wounds at right and left medial ankle Derm: Open ulcerations noted to the right ankle measuring approximately 4 cm by 4 cm by 0.3 cm with fibrogranular base, no malodor, no puruelnce noted. Ulceration noted to the left ankle measure approximately 2.5 cm by 1.5 cm by 0.3 cm with fibrogranular base, no malodor, no puruelnce noted. No erythema, no calor noted. Edema is noted to be decreased on b/l LE as seen by relaxed skin tension lines. - Neurological Exam Neurological Exam: Alert, Awake, Oriented x3 Assessment and Plan - Assessment and Plan (Free Text) Assessment: 87 year old female with b/l ulcerations noted to the respective lower extremities secondary to CHF. Plan: Patient examined and evaluated with attending, Dr. Mack Chart, labs, & vitals reviewed; afebrile Wounds cleansed with normal sterile saline Dressed wounds with Dakin's wet-to-dry & DSD. Dressing to be changed 2 times daily. Continue IV abx per ID. Podiatry will continue to follow patient while in house.
--- NOTE | 2017-04-22 16:29 | CP.PCM.PN ---
Subjective - Date & Time of Evaluation Date of Evaluation: 04/22/17 Time of Evaluation: 16:29 - Subjective Subjective: Patient seen and examined No events overnight Patient refusing echocardiogra Objective - Vital Signs/Intake and Output Vital Signs (last 24 hours): Temp Pulse Resp BP Pulse Ox 97.3 F L 86 20 151/106 H 98 04/22/17 08:00 04/22/17 08:00 04/22/17 08:00 04/22/17 09:42 04/22/17 08:00 Intake and Output: 04/22/17 04/22/17 06:59 18:59 Intake Total 640 Balance 640 - Medications Medications: Current Medications Amlodipine Besylate (Norvasc) 10 mg PO DAILY [facility] Last Admin: 04/22/17 12:36 Dose: Not Given Furosemide (Lasix) 40 mg PO DAILY [facility] Last Admin: 04/22/17 12:35 Dose: Not Given Vancomycin HCl 1 gm/ Sodium (Chloride) 250 mls @ 166.7 mls/hr IVPB Q24H [facility] Insulin Aspart (Novolog) 0 unit SC ACHS [facility] PRN Reason: Protocol Last Admin: 04/22/17 12:36 Dose: Not Given Isosorbide Mononitrate (Imdur) 60 mg PO DAILY [facility] Last Admin: 04/22/17 12:35 Dose: Not Given Ketorolac Tromethamine (Toradol) 10 mg PO Q8 PRN PRN Reason: Pain, moderate (4-7) Last Admin: 04/20/17 08:02 Dose: 10 mg Lactic Acid (Lac-Hydrin 12% Lotion (225 G)) 0 gm TOP BID [facility] Last Admin: 04/22/17 12:35 Dose: Not Given Lactulose (Enulose) 20 gm PO Q12 [facility] Last Admin: 04/22/17 12:35 Dose: Not Given Linezolid (Zyvox) 600 mg PO BID [facility] Losartan Potassium (Cozaar) 100 mg PO DAILY [facility] Last Admin: 04/22/17 12:35 Dose: Not Given Magnesium Hydroxide (Milk Of Magnesia) 30 ml PO Q8 PRN PRN Reason: Constipation Metoprolol Tartrate (Lopressor) 50 mg PO BID [facility] Last Admin: 04/22/17 12:36 Dose: Not Given Potassium Chloride (Klor-Con 10) 10 meq PO DAILY [facility] Last Admin: 04/22/17 12:35 Dose: Not Given Rivaroxaban (Xarelto) 20 mg PO DAILY [facility] Last Admin: 04/22/17 12:37 Dose: Not Given Sodium Hypochlorite (Dakins Solution 0.125%) 0.5 appl TOP BID [facility] Last Admin: 04/22/17 12:35 Dose: Not Given - Labs Labs: 04/21/17 00:40 04/21/17 00:40 PT 13.2 SECONDS (9.7-12.2) H 04/17/17 21:41 INR 1.2 04/17/17 21:41 - Head Exam Head Exam: NORMAL INSPECTION - Eye Exam Eye Exam: Normal appearance - ENT Exam ENT Exam: Mucous Membranes Moist - Respiratory Exam Respiratory Exam: Rhonchi - Cardiovascular Exam Cardiovascular Exam: Irregular Rhythm, +S1, +S2 - GI/Abdominal Exam GI & Abdominal Exam: Soft, Normal Bowel Sounds - Extremities Exam Extremities Exam: Pedal Edema Assessment and Plan - Assessment and Plan (Free Text) Assessment: CHF A. fib NSVT Diabetes Lower extremity stasis ulcers Diuresis Continue Xarelto Cardiology and ID follow-up Continue vancomycin Continue supportive care DVT GI prophylaxis
--- NOTE | 2017-04-22 19:33 | CARD ---
APPROVED REPORT EKG Measurement Heart [id number] <Conclusion> Atrial fibrillation with premature ventricular or aberrantly conducted complexes Septal infarct, age undetermined Abnormal ECG
--- NOTE | 2017-04-22 22:21 | CP.PCM.PN ---
Subjective - Date & Time of Evaluation Date of Evaluation: 04/22/17 Time of Evaluation: 03:15 - Subjective Subjective: dictated Objective - Vital Signs/Intake and Output Vital Signs (last 24 hours): Temp Pulse Resp BP Pulse Ox 98.1 F 74 20 134/91 H 97 04/22/17 17:03 04/22/17 18:10 04/22/17 17:03 04/22/17 18:10 04/22/17 17:03 - Medications Medications: Current Medications Amlodipine Besylate (Norvasc) 10 mg PO DAILY [facility] Last Admin: 04/22/17 12:36 Dose: Not Given Furosemide (Lasix) 40 mg PO DAILY [facility] Last Admin: 04/22/17 12:35 Dose: Not Given Vancomycin HCl 1 gm/ Sodium (Chloride) 250 mls @ 166.7 mls/hr IVPB Q24H [facility] Stop: 04/27/17 22:01 Last Admin: 04/22/17 21:33 Dose: 166.7 mls/hr Insulin Aspart (Novolog) 0 unit SC ACHS [facility] PRN Reason: Protocol Last Admin: 04/22/17 21:44 Dose: Not Given Isosorbide Mononitrate (Imdur) 60 mg PO DAILY [facility] Last Admin: 04/22/17 12:35 Dose: Not Given Ketorolac Tromethamine (Toradol) 10 mg PO Q8 PRN PRN Reason: Pain, moderate (4-7) Last Admin: 04/20/17 08:02 Dose: 10 mg Lactic Acid (Lac-Hydrin 12% Lotion (225 G)) 0 gm TOP BID [facility] Last Admin: 04/22/17 21:33 Dose: 1 applic Lactulose (Enulose) 20 gm PO Q12 [facility] Last Admin: 04/22/17 21:32 Dose: 20 gm Linezolid (Zyvox) 600 mg PO BID [facility] Last Admin: 04/22/17 18:10 Dose: 600 mg Losartan Potassium (Cozaar) 100 mg PO DAILY [facility] Last Admin: 04/22/17 12:35 Dose: Not Given Magnesium Hydroxide (Milk Of Magnesia) 30 ml PO Q8 PRN PRN Reason: Constipation Metoprolol Tartrate (Lopressor) 50 mg PO BID [facility] Last Admin: 04/22/17 18:08 Dose: 50 mg Potassium Chloride (Klor-Con 10) 10 meq PO DAILY [facility] Last Admin: 04/22/17 12:35 Dose: Not Given Rivaroxaban (Xarelto) 20 mg PO DAILY [facility] Last Admin: 04/22/17 18:10 Dose: 20 mg Sodium Hypochlorite (Dakins Solution 0.125%) 0.5 appl TOP BID [facility] Last Admin: 04/22/17 21:33 Dose: Not Given - Labs Labs: 04/21/17 00:40 04/21/17 00:40 PT 13.2 SECONDS (9.7-12.2) H 04/17/17 21:41 INR 1.2 04/17/17 21:41
[2017-04-23 00:33] VITALS: O2SAT 100
--- NOTE | 2017-04-23 01:46 | PN ---
SUBJECTIVE: The patient is very talkative and she does not listen what you want to tell her, she says she has her own will, she may or may not get the test done. So far, I have not been able to see the wound myself, she never let me open the dressing. She says Dr. Hathaway is taking care of it. She has chronic CHF with edema. I have today ordered a bone scan, hopefully she will get it done. Added Zyvox. When I was going to cut off vancomycin, she says you are cutting it off too soon, so she has her own ideas which I am want to bend down here because it has been difficult to evaluate the wound so far. PHYSICAL EXAMINATION: VITAL SIGNS: T-max is 98.1, pulse is 74, blood pressure is 134/91, and respirations are 20. GENERAL: She awake and alert. She participates in her own care on her own; however, she is 87-year-old. LUNGS: Clear. HEART: S1 and S2, it is irregularly irregular. ABDOMEN: Soft, nontender. No guarding, no rigidity present. EXTREMITIES: Stasis dermatitis. [place] edema plus has ulcerations which have a dressing and she does not let me open them. LABORATORY DATA: Labs are noted. Lab show white count is 5.1, hemoglobin 9.9, hematocrit is 31.6, and platelet count is 148. She remains anemic. She is also diabetic. Her sugar is at 175. There are no wound cultures as wounds were dry. Blood culture x2 have been negative. IMPRESSION AND PLAN: SHE IS ALLERGIC TO ERTAPENEM. I was giving her vancomycin, which is only 1 g a day. I have added Zyvox at this time, ordered a bone scan, and I will be away till 08:29 a.m. and she needs to get that test done. Bone scan done to see if there is an osteomyelitis, it may or may not have, but it is difficult to have this patient go on IV antibiotics, as I am not sure if she will comply with them or she will pull off the PICC line because she has her own moods, so at this time; however, she wants antibiotics IV, I have continued that and ordered a bone scan. Dr. Grimaldo will be covering me if needed, please call him. Marilee Prado MD [facility] # [id number]
[2017-04-23 07:36] VITALS: PULSE 88; RESP 18; TEMP 97.3
[2017-04-23] MEDS: (Novolog) Insulin Aspart, Recombinant 100 u/ml 10 ml vial SC SCH ×2 (08:28→12:36)
[2017-04-23] MEDS: Potassium Chloride 10 mEq ER Tab PO SCH (09:19)
[2017-04-23] MEDS: Ammonium Lactate 12% Lotion (225 g) TOP SCH (09:21)
[2017-04-23] MEDS ORDERED: Vancomycin 1 gm/NS 200 ml 1 GM/200 ML BAG IVPB SCH (10:00)
--- NOTE | 2017-04-23 12:45 | CP.PCM.PN ---
Subjective - Date & Time of Evaluation Date of Evaluation: 04/23/17 Time of Evaluation: 12:44 - Subjective Subjective: 87 year old female was seen today at bedside regarding chronic leg edema and ulcers bilaterally. Pt denies any acute overnight events. Pt denies any n/v/f/c/ sob/cp. Objective - Vital Signs/Intake and Output Vital Signs (last 24 hours): Temp Pulse Resp BP Pulse Ox 97.3 F L 88 18 158/107 H 100 04/23/17 07:34 04/23/17 07:34 04/23/17 07:34 04/23/17 09:20 04/23/17 07:34 Intake and Output: 04/23/17 04/23/17 06:59 18:59 Intake Total 490 Output Total 700 Balance -210 - Medications Medications: Current Medications Amlodipine Besylate (Norvasc) 10 mg PO DAILY [facility] Last Admin: 04/23/17 09:19 Dose: 10 mg Furosemide (Lasix) 40 mg PO DAILY [facility] Last Admin: 04/23/17 09:20 Dose: 40 mg Vancomycin HCl 1 gm/ Sodium (Chloride) 250 mls @ 166.7 mls/hr IVPB Q24H [facility] Stop: 04/27/17 22:01 Last Admin: 04/22/17 21:33 Dose: 166.7 mls/hr Insulin Aspart (Novolog) 0 unit SC ACHS [facility] PRN Reason: Protocol Last Admin: 04/23/17 12:36 Dose: Not Given Isosorbide Mononitrate (Imdur) 60 mg PO DAILY [facility] Last Admin: 04/23/17 09:19 Dose: 60 mg Ketorolac Tromethamine (Toradol) 10 mg PO Q8 PRN PRN Reason: Pain, moderate (4-7) Last Admin: 04/20/17 08:02 Dose: 10 mg Lactic Acid (Lac-Hydrin 12% Lotion (225 G)) 0 gm TOP BID [facility] Last Admin: 04/23/17 09:21 Dose: 1 applic Lactulose (Enulose) 20 gm PO Q12 [facility] Last Admin: 04/23/17 09:20 Dose: Not Given Linezolid (Zyvox) 600 mg PO BID [facility] Last Admin: 04/23/17 09:19 Dose: 600 mg Losartan Potassium (Cozaar) 100 mg PO DAILY [facility] Last Admin: 04/23/17 09:20 Dose: 100 mg Magnesium Hydroxide (Milk Of Magnesia) 30 ml PO Q8 PRN PRN Reason: Constipation Metoprolol Tartrate (Lopressor) 50 mg PO BID [facility] Last Admin: 04/23/17 09:20 Dose: 50 mg Potassium Chloride (Klor-Con 10) 10 meq PO DAILY [facility] Last Admin: 04/23/17 09:19 Dose: 10 meq Rivaroxaban (Xarelto) 20 mg PO DAILY [facility] Last Admin: 04/23/17 10:46 Dose: 20 mg Sodium Hypochlorite (Dakins Solution 0.125%) 0.5 appl TOP BID [facility] Last Admin: 04/23/17 11:00 Dose: 0.5 appl - Labs Labs: 04/21/17 00:40 04/21/17 00:40 PT 13.2 SECONDS (9.7-12.2) H 04/17/17 21:41 INR 1.2 04/17/17 21:41 - Constitutional Appears: Non-toxic, No Acute Distress - Extremities Exam Additional comments: Lower extremity focused exam: Vasc: DP and PT pulses faintly palpable b/l. Skin temperature warm to cool from proximal to distal b/l. Neuro: Gross sensation diminished b/l Ortho: Tenderness on palpation to wounds at right and left medial ankle Derm: Open ulcerations noted to the right ankle measuring approximately 4 cm by 4 cm by 0.3 cm with fibrogranular base, no malodor, no puruelnce noted. Ulceration noted to the left ankle measure approximately 2.5 cm by 1.5 cm by 0.3 cm with fibrogranular base, no malodor, no puruelnce noted. No erythema, no calor noted. Edema is noted to be decreased on b/l LE as seen by relaxed skin tension lines. - Neurological Exam Neurological Exam: Alert, Awake - Psychiatric Exam Psychiatric exam: Normal Affect, Normal Mood Assessment and Plan - Assessment and Plan (Free Text) Assessment: 87 year old female with b/l ulcerations noted to the respective lower extremities secondary to CHF. Plan: Patient examined and evaluated discussed with attending, Dr. Mack Chart, labs, & vitals reviewed; afebrile Wounds cleansed with normal sterile saline Dressed wounds with Dakin's wet-to-dry & DSD. Dressing to be changed 2 times daily. Continue IV abx per ID. Podiatry will continue to follow patient while in house.
--- NOTE | 2017-04-23 13:46 | PCM.PYCHPN ---
Psychiatric Progress Note - Psychiatric Progress Note Patient seen today, length of contact: 15 min Patient Chief Complaint: I am feeling better' Problems Identified/Issues Discussed: Patient seen and evaluated, chart reviewed and discussed with the nurse. The patient reports improvement in her depressed mood but still reports that she does not want to go to the long term. She reports that she becomes depressed over there, however she denies any feelings of hopelessness or helplessness. She reports trouble in going to sleep but denies any suicidal ideation or homicidal ideation. She is taking medications and denies any side effects. Supportive therapy and psychoeducation were given. Medication Change: Yes (Zoloft, trazodone) Medical Record Reviewed: Yes Mental Status Examination - Cognitive Function Orientation: Person, Place, Situation, Time Memory: Intact Attention: WNL Concentration: Poor Association: WNL Fund of Knowledge: Poor - Mood Mood: Depressed, Anxious - Affect Affect: Broad - Speech Speech: Soft - Formal Thought Process Formal Thought Process: No Impairment - Suicidal Ideation Suicidal Ideation: No - Homicidal Ideation Homicidal Ideation: No Goal/Treatment Plan - Goal/Treatment Plan Need for Continued Stay: Other Progress Toward Problem(s) and Goals/Treatment Plan: Senile Dementia monitor supportive care Depressive disorder Sertraline 25 mg PO Daily Trazodone 25 mg PO QHS Atrax 25 mg PO TID prn - Smoking Cessation Smoking Cessation Initiated: No
--- NOTE | 2017-04-23 14:30 | CP.PCM.PN ---
Subjective - Date & Time of Evaluation Date of Evaluation: 04/22/17 Time of Evaluation: 15:00 Objective - Vital Signs/Intake and Output Vital Signs (last 24 hours): Temp Pulse Resp BP Pulse Ox 97.3 F L 88 18 158/107 H 100 04/23/17 07:34 04/23/17 07:34 04/23/17 07:34 04/23/17 09:20 04/23/17 07:34 Intake and Output: 04/23/17 04/23/17 06:59 18:59 Intake Total 490 Output Total 700 Balance -210 - Medications Medications: Current Medications Amlodipine Besylate (Norvasc) 10 mg PO DAILY [facility] Last Admin: 04/23/17 09:19 Dose: 10 mg Furosemide (Lasix) 40 mg PO DAILY [facility] Last Admin: 04/23/17 09:20 Dose: 40 mg Hydroxyzine HCl (Atarax) 25 mg PO TID PRN PRN Reason: Anxiety Vancomycin HCl 1 gm/ Sodium (Chloride) 250 mls @ 166.7 mls/hr IVPB Q24H [facility] Stop: 04/27/17 22:01 Last Admin: 04/22/17 21:33 Dose: 166.7 mls/hr Insulin Aspart (Novolog) 0 unit SC ACHS [facility] PRN Reason: Protocol Last Admin: 04/23/17 12:36 Dose: Not Given Isosorbide Mononitrate (Imdur) 60 mg PO DAILY [facility] Last Admin: 04/23/17 09:19 Dose: 60 mg Ketorolac Tromethamine (Toradol) 10 mg PO Q8 PRN PRN Reason: Pain, moderate (4-7) Last Admin: 04/20/17 08:02 Dose: 10 mg Lactic Acid (Lac-Hydrin 12% Lotion (225 G)) 0 gm TOP BID [facility] Last Admin: 04/23/17 09:21 Dose: 1 applic Lactulose (Enulose) 20 gm PO Q12 [facility] Last Admin: 04/23/17 09:20 Dose: Not Given Linezolid (Zyvox) 600 mg PO BID [facility] Last Admin: 04/23/17 09:19 Dose: 600 mg Losartan Potassium (Cozaar) 100 mg PO DAILY [facility] Last Admin: 04/23/17 09:20 Dose: 100 mg Magnesium Hydroxide (Milk Of Magnesia) 30 ml PO Q8 PRN PRN Reason: Constipation Metoprolol Tartrate (Lopressor) 50 mg PO BID [facility] Last Admin: 04/23/17 09:20 Dose: 50 mg Potassium Chloride (Klor-Con 10) 10 meq PO DAILY [facility] Last Admin: 04/23/17 09:19 Dose: 10 meq Rivaroxaban (Xarelto) 20 mg PO DAILY [facility] Last Admin: 04/23/17 10:46 Dose: 20 mg Sertraline HCl (Zoloft) 25 mg PO DAILY [facility] Sodium Hypochlorite (Dakins Solution 0.125%) 0.5 appl TOP BID [facility] Last Admin: 04/23/17 11:00 Dose: 0.5 appl Trazodone HCl (Desyrel) 25 mg PO HS [facility] - Labs Labs: 04/21/17 00:40 04/21/17 00:40 PT 13.2 SECONDS (9.7-12.2) H 04/17/17 21:41 INR 1.2 04/17/17 21:41
--- NOTE | 2017-04-23 14:30 | CP.PCM.PN ---
Subjective - Date & Time of Evaluation Date of Evaluation: 04/23/17 Time of Evaluation: 14:30 - Subjective Subjective: PLACE UNDER THE SERVICE OF DR. Cristina GUTIÉRREZ WHILE AT [facility]. CONTINUE MEDICATIONS PER THE MED REC AND D/C PAPERWORK. CALL DR. TORIBIO ONCE PT ARRIVES AT [facility] FOR ORDERS. WOUND CARE ORDERS FOLLOWS: Wounds cleanse with normal sterile saline; Dress wounds with Dakin's wet-to-dry & DSD. Dressing to be changed [address] DELONG (ID) RECOMMENDATIONS: CONTINUE VANCOMYCIN 1 GM IV DAILY X4 MORE DAYS (04/24/17 AND LAST DOSE TO BE GIVEN ON 04/27/17); ZYVOX 600 MG PO BID X10 DAYS (START 04/24/17 AND LAST DOSE TO BE GIVEN ON 05/04/17). HEPLOCK CARE PER FACILITY PROTOCOL. NO NEED FOR HEPLOCK AFTER VANCO DOSE ON . FOR FURTHER ORDERS, CONTACT DR. GUTIÉRREZ. Objective - Vital Signs/Intake and Output Vital Signs (last 24 hours): Temp Pulse Resp BP Pulse Ox 97.3 F L 88 18 158/107 H 100 04/23/17 07:34 04/23/17 07:34 04/23/17 07:34 04/23/17 09:20 04/23/17 07:34 Intake and Output: 04/23/17 04/23/17 06:59 18:59 Intake Total 490 Output Total 700 Balance -210 - Medications Medications: Current Medications Amlodipine Besylate (Norvasc) 10 mg PO DAILY [facility] Last Admin: 04/23/17 09:19 Dose: 10 mg Furosemide (Lasix) 40 mg PO DAILY [facility] Last Admin: 04/23/17 09:20 Dose: 40 mg Hydroxyzine HCl (Atarax) 25 mg PO TID PRN PRN Reason: Anxiety Vancomycin HCl 1 gm/ Sodium (Chloride) 250 mls @ 166.7 mls/hr IVPB Q24H [facility] Stop: 04/27/17 22:01 Last Admin: 04/22/17 21:33 Dose: 166.7 mls/hr Insulin Aspart (Novolog) 0 unit SC ACHS [facility] PRN Reason: Protocol Last Admin: 04/23/17 12:36 Dose: Not Given Isosorbide Mononitrate (Imdur) 60 mg PO DAILY [facility] Last Admin: 04/23/17 09:19 Dose: 60 mg Ketorolac Tromethamine (Toradol) 10 mg PO Q8 PRN PRN Reason: Pain, moderate (4-7) Last Admin: 04/20/17 08:02 Dose: 10 mg Lactic Acid (Lac-Hydrin 12% Lotion (225 G)) 0 gm TOP BID [facility] Last Admin: 04/23/17 09:21 Dose: 1 applic Lactulose (Enulose) 20 gm PO Q12 [facility] Last Admin: 04/23/17 09:20 Dose: Not Given Linezolid (Zyvox) 600 mg PO BID [facility] Last Admin: 04/23/17 09:19 Dose: 600 mg Losartan Potassium (Cozaar) 100 mg PO DAILY [facility] Last Admin: 04/23/17 09:20 Dose: 100 mg Magnesium Hydroxide (Milk Of Magnesia) 30 ml PO Q8 PRN PRN Reason: Constipation Metoprolol Tartrate (Lopressor) 50 mg PO BID [facility] Last Admin: 04/23/17 09:20 Dose: 50 mg Potassium Chloride (Klor-Con 10) 10 meq PO DAILY [facility] Last Admin: 04/23/17 09:19 Dose: 10 meq Rivaroxaban (Xarelto) 20 mg PO DAILY [facility] Last Admin: 04/23/17 10:46 Dose: 20 mg Sertraline HCl (Zoloft) 25 mg PO DAILY [facility] Sodium Hypochlorite (Dakins Solution 0.125%) 0.5 appl TOP BID [facility] Last Admin: 04/23/17 11:00 Dose: 0.5 appl Trazodone HCl (Desyrel) 25 mg PO [facility] - Labs Labs: 04/21/17 00:40 04/21/17 00:40 PT 13.2 SECONDS (9.7-12.2) H 04/17/17 21:41 INR 1.2 04/17/17 21:41
[2017-04-23 14:48] VITALS: BP 141/86
--- NOTE | 2017-04-23 14:58 | CP.PCM.PN ---
Subjective - Date & Time of Evaluation Date of Evaluation: 04/23/17 Time of Evaluation: 14:58 Objective - Vital Signs/Intake and Output Vital Signs (last 24 hours): Temp Pulse Resp BP Pulse Ox 97.3 F L 88 18 141/86 100 04/23/17 07:34 04/23/17 07:34 04/23/17 07:34 04/23/17 14:48 04/23/17 07:34 Intake and Output: 04/23/17 04/23/17 06:59 18:59 Intake Total 490 600 Output Total 700 Balance -210 600 - Medications Medications: Current Medications Amlodipine Besylate (Norvasc) 10 mg PO DAILY [facility] Last Admin: 04/23/17 09:19 Dose: 10 mg Furosemide (Lasix) 40 mg PO DAILY [facility] Last Admin: 04/23/17 09:20 Dose: 40 mg Hydroxyzine HCl (Atarax) 25 mg PO TID PRN PRN Reason: Anxiety Insulin Aspart (Novolog) 0 unit SC ACHS [facility] PRN Reason: Protocol Last Admin: 04/23/17 12:36 Dose: Not Given Isosorbide Mononitrate (Imdur) 60 mg PO DAILY [facility] Last Admin: 04/23/17 09:19 Dose: 60 mg Ketorolac Tromethamine (Toradol) 10 mg PO Q8 PRN PRN Reason: Pain, moderate (4-7) Last Admin: 04/20/17 08:02 Dose: 10 mg Lactic Acid (Lac-Hydrin 12% Lotion (225 G)) 0 gm TOP BID [facility] Last Admin: 04/23/17 09:21 Dose: 1 applic Lactulose (Enulose) 20 gm PO Q12 [facility] Last Admin: 04/23/17 09:20 Dose: Not Given Linezolid (Zyvox) 600 mg PO BID [facility] Last Admin: 04/23/17 09:19 Dose: 600 mg Losartan Potassium (Cozaar) 100 mg PO DAILY [facility] Last Admin: 04/23/17 09:20 Dose: 100 mg Magnesium Hydroxide (Milk Of Magnesia) 30 ml PO Q8 PRN PRN Reason: Constipation Metoprolol Tartrate (Lopressor) 50 mg PO BID [facility] Last Admin: 04/23/17 09:20 Dose: 50 mg Potassium Chloride (Klor-Con 10) 10 meq PO DAILY [facility] Last Admin: 04/23/17 09:19 Dose: 10 meq Rivaroxaban (Xarelto) 20 mg PO DAILY [facility] Last Admin: 04/23/17 10:46 Dose: 20 mg Sertraline HCl (Zoloft) 25 mg PO DAILY [facility] Sodium Hypochlorite (Dakins Solution 0.125%) 0.5 appl TOP BID [facility] Last Admin: 04/23/17 11:00 Dose: 0.5 appl Trazodone HCl (Desyrel) 25 mg PO [facility] - Labs Labs: 04/21/17 00:40 04/21/17 00:40 PT 13.2 SECONDS (9.7-12.2) H 04/17/17 21:41 INR 1.2 04/17/17 21:41
--- NOTE | 2017-04-23 15:29 | PCM.HF ---
Heart Failure Core Measure - Heart Failure Ejection Fraction: 40 % or Greater (PMD TO RECHECK ECHO OUTPATIENT.) THAO Inhibitor Prescribed: No Contraindication/Reason for not providing: ON ARB Beta-Karen Prescribed: None Contraindication/Reason for not providing: ON LOPRESSOR BID Angiotensin II Receptor Karen Prescribed: Yes AnticoagulationTherapy for Atrial Fibrillation/Atrialflutter: Yes Aldosterone Antagonist Prescribed: No Contraindication/Reason for not providing: LAST EF "NORMAL" Hydralazine Nitrate Prescribed: No Contraindication/Reason for not providing: LAST EF "NORMAL" Implantable Cardioverter Defibrillator Therapy: No Contraindication/Reason for not providing: LAST EF "NORMAL" Cardiac Resynchronization Therapy Prescribed: No Contraindication/Reason for not providing: LAST EF "NORMAL" - Follow up Will be discharged to: Longterm Facility ([facility]) Follow Up Date (must be within 7 days from discharge): 04/28/17 Follow Up Time: 09:00
--- NOTE | 2017-04-23 15:30 | CP.PCM.PN ---
Subjective - Date & Time of Evaluation Date of Evaluation: 04/23/17 Time of Evaluation: 15:30 - Subjective Subjective: PT CLEARED FOR D/C PER PODIATRY AND DR. VELA. DISCUSSED ABX PLAN AT LENGTH YESTERDAY W DR. DELONG. UPON D/C PER DR. DELONG PT TO CONTINUE ZYVOX PO X10 DAYS. PT REFUSED BONE SCAN; UNDERSTANDS WHY IT IS ORDERED BUT CONTINUES TO REFUSE. PLUSH CUTTER MADE DR DELONG AWARE (SHE IS ON VACATION, OUT OF COURTESY NOTIFIED HER). TO CONTINUE VANCO 1 GM QD X4 DAYS W PO ZYVOX PER DR. DELONG. D/C WITH HEPLOCK FOR IV ABX. SW TO ARRANGE TRANSPORTATION FOR D/C. Objective - Vital Signs/Intake and Output Vital Signs (last 24 hours): Temp Pulse Resp BP Pulse Ox 97.3 F L 88 18 141/86 100 04/23/17 07:34 04/23/17 07:34 04/23/17 07:34 04/23/17 14:48 04/23/17 07:34 Intake and Output: 04/23/17 04/23/17 06:59 18:59 Intake Total 490 600 Output Total 700 Balance -210 600 - Medications Medications: Current Medications Amlodipine Besylate (Norvasc) 10 mg PO DAILY [facility] Last Admin: 04/23/17 09:19 Dose: 10 mg Furosemide (Lasix) 40 mg PO DAILY [facility] Last Admin: 04/23/17 09:20 Dose: 40 mg Hydroxyzine HCl (Atarax) 25 mg PO TID PRN PRN Reason: Anxiety Insulin Aspart (Novolog) 0 unit SC ACHS [facility] PRN Reason: Protocol Last Admin: 04/23/17 12:36 Dose: Not Given Isosorbide Mononitrate (Imdur) 60 mg PO DAILY [facility] Last Admin: 04/23/17 09:19 Dose: 60 mg Ketorolac Tromethamine (Toradol) 10 mg PO Q8 PRN PRN Reason: Pain, moderate (4-7) Last Admin: 04/20/17 08:02 Dose: 10 mg Lactic Acid (Lac-Hydrin 12% Lotion (225 G)) 0 gm TOP BID [facility] Last Admin: 04/23/17 09:21 Dose: 1 applic Lactulose (Enulose) 20 gm PO Q12 [facility] Last Admin: 04/23/17 09:20 Dose: Not Given Linezolid (Zyvox) 600 mg PO BID [facility] Last Admin: 04/23/17 09:19 Dose: 600 mg Losartan Potassium (Cozaar) 100 mg PO DAILY [facility] Last Admin: 04/23/17 09:20 Dose: 100 mg Magnesium Hydroxide (Milk Of Magnesia) 30 ml PO Q8 PRN PRN Reason: Constipation Metoprolol Tartrate (Lopressor) 50 mg PO BID [facility] Last Admin: 04/23/17 09:20 Dose: 50 mg Potassium Chloride (Klor-Con 10) 10 meq PO DAILY [facility] Last Admin: 04/23/17 09:19 Dose: 10 meq Rivaroxaban (Xarelto) 20 mg PO DAILY [facility] Last Admin: 04/23/17 10:46 Dose: 20 mg Sertraline HCl (Zoloft) 25 mg PO DAILY [facility] Last Admin: 04/23/17 15:13 Dose: 25 mg Sodium Hypochlorite (Dakins Solution 0.125%) 0.5 appl TOP BID [facility] Last Admin: 04/23/17 11:00 Dose: 0.5 appl Trazodone HCl (Desyrel) 25 mg PO HS [facility] - Labs Labs: 04/21/17 00:40 04/21/17 00:40 PT 13.2 SECONDS (9.7-12.2) H 04/17/17 21:41 INR 1.2 04/17/17 21:41
[2017-04-23] MEDS ORDERED: traZODone 25 mg Tab PO SCH (22:00)
--- NOTE | 2017-04-24 03:05 | CP.PCM.DIS ---
Provider - Provider Date of Admission: 04/20/17 14:50 Attending physician: Marva Bowen MD Time Spent in preparation of Discharge (in minutes): 25 Hospital Course - Lab Results Lab Results: Most Recent Lab Values WBC 5.1 K/uL (4.8-10.8) 04/21/17 00:40 RBC 3.67 Mil/uL (3.80-5.20) L 04/21/17 00:40 Hgb 9.9 g/dL (11.0-16.0) L 04/21/17 00:40 Hct 31.6 % (34.0-47.0) L 04/21/17 00:40 MCV 86.2 fL (81.0-99.0) 04/21/17 00:40 MCH 27.0 pg (27.0-31.0) 04/21/17 00:40 MCHC 31.4 g/dL (33.0-37.0) L 04/21/17 00:40 RDW 17.7 % (11.5-14.5) H 04/21/17 00:40 Plt Count 148 K/uL (130-400) 04/21/17 00:40 MPV 8.4 fL (7.2-11.7) 04/21/17 00:40 Neut % (Auto) 59.3 % (50.0-75.0) 04/21/17 00:40 Lymph % (Auto) 21.6 % (20.0-40.0) 04/21/17 00:40 Gilchrist % (Auto) 15.2 % (0.0-10.0) H 04/21/17 00:40 Eos % (Auto) 3.0 % (0.0-4.0) 04/21/17 00:40 Baso % (Auto) 0.9 % (0.0-2.0) 04/21/17 00:40 Neut # 3.0 K/uL (1.8-7.0) 04/21/17 00:40 Lymph # 1.1 K/uL (1.0-4.3) 04/21/17 00:40 Gilchrist # 0.8 K/uL (0.0-0.8) 04/21/17 00:40 Eos # 0.2 K/uL (0.0-0.7) 04/21/17 00:40 Baso # 0.0 K/uL (0.0-0.2) 04/21/17 00:40 PT 13.2 SECONDS (9.7-12.2) H 04/17/17 21:41 INR 1.2 04/17/17 21:41 Sodium 139 mmol/L (132-148) 04/21/17 00:40 Potassium 4.1 mmol/L (3.6-5.2) 04/21/17 00:40 Chloride 104 mmol/L (98-107) 04/21/17 00:40 Carbon Dioxide 25 mmol/L (22-30) 04/21/17 00:40 Anion Gap 14 (10-20) 04/21/17 00:40 BUN 18 mg/dL (7-17) H 04/21/17 00:40 Creatinine 0.8 MG/DL (0.7-1.2) 04/21/17 00:40 Est GFR ( Amer) > 60 04/21/17 00:40 Est GFR (Non-Af Amer) > 60 04/21/17 00:40 POC Glucose (mg/dL) 169 mg/dL (65-110) H 04/23/17 11:54 Random Glucose 205 mg/dL (65-105) H 04/21/17 00:40 Calcium 8.6 mg/dl (8.6-10.4) 04/21/17 00:40 Phosphorus 3.3 mg/dL (2.5-4.5) 04/21/17 00:40 Magnesium 1.7 mg/dL (1.6-2.3) 04/21/17 00:40 Total Bilirubin 0.4 mg/dL (0.2-1.3) 04/21/17 00:40 AST 28 U/L (14-36) 04/21/17 00:40 ALT 30 U/L (9-52) 04/21/17 00:40 Alkaline Phosphatase 121 U/L (38-126) 04/21/17 00:40 Total Creatine Kinase 36 U/L (30-135) 04/21/17 00:40 CK-MB (Mass) 1.22 ng/mL (0.0-3.38) 04/21/17 00:40 Troponin I 0.0660 ng/mL (0.00-0.120) 04/17/17 20:24 Troponin I, Quant 0.0500 ng/mL (0.00-0.120) 04/21/17 00:40 NT-Pro-B Natriuret Pep 7400 pg/mL (0-900) H 04/17/17 20:24 Total Protein 6.5 g/dL (6.3-8.3) 04/21/17 00:40 Albumin 3.2 g/dL (3.5-5.0) L 04/21/17 00:40 Globulin 3.3 gm/dL (2.2-3.9) 04/21/17 00:40 Albumin/Globulin Ratio 1.0 (1.0-2.1) 04/21/17 00:40 Urine Color Straw (YELLOW) 04/17/17 21:39 Urine Clarity Clear (Clear) 04/17/17 21:39 Urine pH 5.0 (5.0-8.0) 04/17/17 21:39 Ur Specific Maurepas 1.006 (1.003-1.030) 04/17/17 21:39 Urine Protein 1+ mg/dL (NEGATIVE) H 04/17/17 21:39 Urine Glucose (UA) Normal mg/dL (Normal) 04/17/17 21:39 Urine Ketones Negative mg/dL (NEGATIVE) 04/17/17 21:39 Urine Blood 1+ (NEGATIVE) H 04/17/17 21:39 Urine Nitrate Negative (NEGATIVE) 04/17/17 21:39 Urine Bilirubin Negative (NEGATIVE) 04/17/17 21:39 Urine Urobilinogen Normal mg/dL (0.2-1.0) 04/17/17 21:39 Ur Leukocyte Esterase Neg Jaleel/uL (Negative) 04/17/17 21:39 Urine WBC (Auto) 1 /hpf (0-5) 04/17/17 21:39 Urine RBC (Auto) 6 /hpf (0-3) H 04/17/17 21:39 Ur Squamous Epith Cells 8 /hpf (0-5) H 04/17/17 21:39 Urine Bacteria Rare (<OCC) 04/17/17 21:39 - Hospital Course Hospital Course: Patient was diuresed and was evaluated by cardiology. Patient refused echocardiogram showed no further cardiological workup is done. She was treated with IV antibiotics and Eliquis for A. fib. Discharge Exam - Head Exam Head Exam: NORMAL INSPECTION - Eye Exam Eye Exam: Normal appearance - ENT Exam ENT Exam: Mucous Membranes Moist - Respiratory Exam Respiratory Exam: Rhonchi, NORMAL BREATHING PATTERN - Cardiovascular Exam Cardiovascular Exam: Irregular Rhythm, +S1, +S2 - GI/Abdominal Exam GI & Abdominal Exam: Normal Bowel Sounds, Soft - Extremities Exam Extremities exam: pedal edema - Neurological Exam Neurological exam: Alert, Oriented x3 Discharge Plan - Follow Up Plan Condition: GOOD Disposition: REHAB FACILITY/REHAB UNIT Instructions: Heart Failure (DC), Heart Healthy Diet (DC), Chronic Wound Care ( DC), Heart Failure (GEN), Pacemaker (DC), Pacemaker (GEN), Pulmonary Edema (DC) , Pulmonary Edema (GEN), Ascites (DC), Ascites (GEN), Cellulitis (DC), Cellulitis (GEN) Additional Instructions: PLACE UNDER THE SERVICE OF DR. Cristina BOWEN WHILE AT [facility]. CONTINUE MEDICATIONS PER THE MED REC AND D/C PAPERWORK. CALL DR. TORIBIO ONCE PT ARRIVES AT [facility] FOR ORDERS. WOUND CARE ORDERS FOLLOWS: Wounds cleanse with normal sterile saline; Dress wounds with Dakin's wet-to-dry & DSD. Dressing to be changed [address] DELONG (ID) RECOMMENDATIONS: CONTINUE VANCOMYCIN 1 GM IV DAILY X4 MORE DAYS (04/24/17 AND LAST DOSE TO BE GIVEN ON 04/27/17); ZYVOX 600 MG PO BID X10 DAYS (START 04/24/17 AND LAST DOSE TO BE GIVEN ON 05/04/17). HEPLOCK CARE PER FACILITY PROTOCOL. NO NEED FOR HEPLOCK AFTER VANCO DOSE ON . FOR FURTHER ORDERS, CONTACT DR. BOWEN. Referrals: Connor Thomson MD [Staff Provider] - Nicholas Toribio DPM [Doctor Podiatric Medicine] - Wyatt Tai Jr., MD [Staff Provider] - Giuliano Bowen MD [Staff Provider] - Alec Grissom DPM [Staff Provider] - Marilee Delong MD [Staff Provider] -
== END 2017-04-23 15:50 | DRG 638 ==
LOC: C.ER 19:02 → SUPCPDRO 19:02 → C.9E 21:05 → UNDOADMOB 21:05 → C.6T 22:56 → C.9E 22:56 → C.6T 04-19 13:52 → OBSVTOIN 04-20 14:50 → INTOOBSV 04-20 14:50 → C.6T 04-23 04:18
PROVIDERS: ADMIT Internal Medicine Nephrology; ATTEND Internal Medicine Nephrology
DX: E11.621 Type 2 diabetes mellitus with foot ulcer (principal); I13.0 Hypertensive heart and chronic kidney disease with heart failure and stage 1 through stage 4 chronic kidney disease, or unspecified chronic kidney disease; L97.321 Non-pressure chronic ulcer of left ankle limited to breakdown of skin; L97.311 Non-pressure chronic ulcer of right ankle limited to breakdown of skin; I47.2 Ventricular tachycardia; E11.22 Type 2 diabetes mellitus with diabetic chronic kidney disease; I50.9 Heart failure, unspecified; F03.90 Unspecified dementia, unspecified severity, without behavioral disturbance, psychotic disturbance, mood disturbance, and anxiety; L03.116 Cellulitis of left lower limb; L03.115 Cellulitis of right lower limb; I48.91 Unspecified atrial fibrillation; J44.9 Chronic obstructive pulmonary disease, unspecified; F41.9 Anxiety disorder, unspecified; E78.00 Pure hypercholesterolemia, unspecified; F32.9 Major depressive disorder, single episode, unspecified; N18.9 Chronic kidney disease, unspecified; Z88.0 Allergy status to penicillin; Z79.01 Long term (current) use of anticoagulants; Z87.440 Personal history of urinary (tract) infections; Z79.4 Long term (current) use of insulin

== ENCOUNTER 2017-07-17 21:06 | Inpatient (IN) | payer MEDICARE, OTHER ==
[2017-07-17 21:08] VITALS: BMI 30.2
--- NOTE | 2017-07-17 21:35 | C.PDOC ---
History Of Present Illness Patient presents to ED with complaints of leg swelling with associated decreased ambulation, urinary incontinence and sob. Patient is speaking in full sentences and denies chest pain, fever, chills, nausea, vomiting or any other complaints at this time. Time Seen by Provider: 07/17/17 21:35 Chief Complaint (Nursing): Abnormal Skin Integrity History Per: Patient History/Exam Limitations: no limitations Onset/Duration Of Symptoms: Days Current Symptoms Are (Timing): Still Present Location Of Injury: Right: Leg, Left: Leg Quality Of Symptoms: Swollen Severity: Mild Pain Scale Rating Of: 2 Recent travel outside of the [place]: No Additional History Per: Patient Past Medical History Reviewed: Historical Data, Nursing Documentation, Vital Signs Vital Signs: Last Vital Signs Temp 97.2 F L 07/17/17 21:20 Pulse 63 07/17/17 21:20 Resp 20 07/17/17 21:20 BP 162/99 H 07/17/17 21:20 Pulse Ox 97 07/17/17 22:32 - Medical History PMH: Anxiety, Atrial Fibrillation, CHF, COPD, Dementia, Depression, Diabetes, HTN, Hypercholesterolemia, Peripheral Edema Surgical History: No Surg Hx - [facility] Procedures INJECT/INFUSE NEC (11/24/12) NONEXCIS DEBRID OF WOUND, INFECT, OR BURN (01/19/13) Family History: States: No Known Family Hx - Social History Hx Tobacco Use: No Hx Alcohol Use: No Hx Substance Use: No - Immunization History Hx Tetanus Toxoid Vaccination: No Hx Influenza Vaccination: No Hx Pneumococcal Vaccination: No Review Of Systems Constitutional: Negative for: Fever, Chills Cardiovascular: Negative for: Chest Pain Respiratory: Positive for: Shortness of Breath Gastrointestinal: Negative for: Nausea, Vomiting Genitourinary: Positive for: Incontinence. Negative for: Dysuria, Hematuria Musculoskeletal: Positive for: Leg Pain Skin: Negative for: Rash Neurological: Negative for: Weakness, Numbness Psych: Positive for: Anxiety Physical Exam - Physical Exam Appears: Non-toxic, No Acute Distress Skin: Warm, Dry, No Rash Head: Normacephalic Eye(s): bilateral: Normal Inspection Oral Mucosa: Moist Neck: Supple Chest: Symmetrical Cardiovascular: Rhythm Irregular Respiratory: Rales (at bases ), No Rhonchi, No Wheezing Gastrointestinal/Abdominal: Soft, No Tenderness, Distention, No Guarding, No Rebound, Other (tympanic to percussion) Back: No CVA Tenderness Extremity: Pedal Edema (bilaterally), Capillary Refill (<2 seconds), Other (3x3 healing ulcer to right medical malleolus. 3.5x4 healing ulcer to left malleolus. (+)Granulation tissue on both low extremities) Extremity: Bilateral: Normal ROM, Painful To Bear Weight Pulses: Left Dorsalis Pedis: Normal, Right Dorsalis Pedis: Normal Neurological/Psych: Oriented x3, Normal Speech Gait: Unable To Assess ED Course And Treatment - Laboratory Results Result Diagrams: 07/17/17 22:25 07/17/17 22:25 ECG: Interpreted By Me, Viewed By Me ECG Rhythm: Atrial Fibrillation (94), Nonspecific Changes O2 Sat by Pulse Oximetry: 97 (RA) Pulse Ox Interpretation: Normal - Radiology CXR: Interpreted by Me, Viewed By Me CXR Interpretation: Yes: Cardiomegaly, Other (chf, left effusion). No: Infiltrates Disposition Discussed With DrSteve: Isacc Esquivel Comment: accepted the pt on his service and took over the care at 12:47 AM Doctor Will See Patient In The: ED Counseled Patient/Family Regarding: Studies Performed, Diagnosis - Disposition Disposition: HOSPITALIZED Disposition Time: 21:35 Condition: FAIR Forms: [facility] (Welsh) - POA Present On Arrival: Poor Glycemic Control, Pressure Ulcer - Clinical Impression Clinical Impression: Skin ulcer, A-fib, CHF (congestive heart failure), Diabetes - Scribe Statement The provider has reviewed the documentation as recorded by the Alexandraiblong Daily All medical record entries made by the Scribe were at my direction and personally dictated by me. I have reviewed the chart and agree that the record accurately reflects my personal performance of the history, physical exam, medical decision making, and the department course for this patient. I have also personally directed, reviewed, and agree with the discharge instructions and disposition. Decision To Admit - Pt Status Changed To: Hospital Disposition Of: Inpatient - Admit Certification Admit to Inpatient:: After my assessment, the patient will require hospitalization for at least two midnights. This is because of the severity of symptoms shown, intensity of services needed, and/or the medical risk in this patient being treated as an outpatient. - InPatient: Physician Admission Certification: I certify that this patient requires 2 or more midnights of care for the following reason:: After my assessment, the patient will require hospitalization for at least two midnights. This is because of the severity of symptoms shown, intensity of services needed, and/or the medical risk in this patient being treated as an outpatient. - . Bed Request Type: Telemetry Admitting Physician: Isacc Esquivel Patient Diagnosis: Skin ulcer, A-fib, CHF (congestive heart failure), Diabetes
[2017-07-17 22:32] LABS: BASO # 0.1 K/uL (0.0-0.2); BASO % 1.1 % (0.0-2.0); EOS # 0.1 K/uL (0.0-0.7); EOS % 1.2 % (0.0-4.0); HEMATOCRIT 32.3 % (34.0-47.0); LYMPH # 0.8 K/uL (1.0-4.3); MEAN CELL VOLUME 86.3 fL (81.0-99.0); MEAN CORPUSCULAR HEMOGLOBIN 26.9 pg (27.0-31.0); MEAN CORPUSCULAR HGB CONC 31.2 g/dL (33.0-37.0); MEAN PLATELET VOLUME 8.9 fL (7.2-11.7); MONO # 0.5 K/uL (0.0-0.8); MONO % 10.3 % (0.0-10.0); NRBC % 0.1 % (0.0-2.0); RED CELL DISTRIBUTION WIDTH 18.9 % (11.5-14.5); WHITE BLOOD COUNT 4.9 K/uL (4.8-10.8)
[2017-07-17 22:34] LABS: VENOUS BLOOD GAS BASE EXCESS 2.6 mmol/L (0.0-2.0); VENOUS BLOOD GAS PCO2 55 mmHg (40-60); VENOUS BLOOD PH 7.34 (7.32-7.43)
[2017-07-17 22:43] LABS: INR 1.2
[2017-07-17 22:46] LABS: ALKALINE PHOSPHATASE 202 U/L (38-126); ALT/SGPT 55 U/L (9-52); AST/SGOT 42 U/L (14-36); BILIRUBIN,TOTAL 0.6 mg/dL (0.2-1.3); BLOOD UREA NITROGEN 24 mg/dL (7-17); CALCIUM 8.9 mg/dl (8.6-10.4); CARBON DIOXIDE 27 mmol/L (22-30); CHLORIDE 104 mmol/L (98-107); GFR AFRICAN-AMERICAN > 60; GLUCOSE,RANDOM 155 mg/dL (65-105); MAGNESIUM 1.8 mg/dL (1.6-2.3); POTASSIUM 4.8 mmol/L (3.6-5.2); SODIUM 139 mmol/L (132-148)
[2017-07-17 22:57] LABS: ALB/GLOB RATIO 0.7 (1.0-2.1)
--- NOTE | 2017-07-18 01:45 | CP.PCM.HP ---
<Francisco Madden - Last Filed: 07/18/17 07:57> History of Present Illness - History of Present Illness History of Present Illness: CC: Non healing ulcer HPI: Patient is an 87 yo female, with PMHx of Afib, HTN, COPD, T2DM, hyperlipidemia, CHF, PVD, depression, and chronic non-healing ulcers and diabetic foot ulcers to bilateral lower extremities, who presents to [facility] from [facility] for non healing wounds. Per patient her leg swelling/wounds are starting to hurt her more recently and she has no longer been able to walk. She reports being able to use a walker until as recently as "3-4 months ago" but now uses the wheelchair at the [facility]. She admits it has been so long since she walked "she feels weak" in her extremities. Patient also reports urinary incontinence, which she has "had for awhile" that she wears adult diapers for. She states that by the time she gets the urge she cannot make it to the bathroom in time with her legs in this condition. Patient denies feeling short of breath. She denies orthopnea, but admits preferring to use two pillows for sleep. As per transfer paperwork "pt. non compliant with meds and wound treatment." Patient admits taking xarelto/metoprolol daily for her afib. She denies recent falls, fever, chills, headache, chest pain, abdominal pain, N/V/D/ C. PMHx: Afib, HTN, COPD, T2DM, hyperlipidemia, CHF, PVD, chronic non-healing ulcers and diabetic foot ulcers to bilateral lower extremities PSHx: 2 c-sections FHx: denies allergies: Ertapenem sodium (rash) Social History: Lives in a [facility], denies tobacco, ETOH and illicit drug use. PMD: Reisner Present on Admission - Present on Admission Any Indicators Present on Admission: No Review of Systems - Constitutional Constitutional: absent: Chills, Fever - EENT Eyes: absent: Change in Vision Ears: absent: Decreased Hearing - Cardiovascular Cardiovascular: absent: Chest Pain, Dyspnea, Dyspnea on Exertion - Respiratory Respiratory: absent: Cough - Gastrointestinal Gastrointestinal: absent: Abdominal Pain, Nausea, Vomiting - Genitourinary Genitourinary: Urinary Incontinence. absent: Dysuria - Musculoskeletal Musculoskeletal: absent: Numbness, Tingling - Integumentary Integumentary: Skin Ulcer, Wounds - Neurological Neurological: Weakness (lower extremities) - Psychiatric Psychiatric: absent: Anxiety, Depression - Endocrine Endocrine: Palpitations (pt w afib) Past Patient History - Infectious Disease Hx of Infectious Diseases: None - Tetanus Immunizations Tetanus Immunization: Unknown - Past Medical History & Family History Past Medical History?: Yes - Past Social History Smoking Status: Never Smoked - CARDIAC Hx Atrial Fibrillation: Yes Hx Congestive Heart Failure: Yes Hx Hypercholesterolemia: Yes Hx Hypertension: Yes Hx Peripheral Edema: Yes - PULMONARY Hx Chronic Obstructive Pulmonary Disease (COPD): Yes - NEUROLOGICAL Hx Dementia: Yes - HEENT Hx HEENT Problems: No - RENAL Hx Chronic Kidney Disease: No - ENDOCRINE/METABOLIC Hx Endocrine Disorders: Yes Hx Diabetes Mellitus Type 2: Yes - HEMATOLOGICAL/ONCOLOGICAL Hx Blood Disorders: No Hx Blood Transfusions: No Hx Blood Transfusion Reaction: No - INTEGUMENTARY Hx Dermatological Problems: Yes Other/Comment: Hx Diabetic foot ulcer and non healing wound - MUSCULOSKELETAL/RHEUMATOLOGICAL Hx Musculoskeletal Disorders: Yes Hx Falls: Yes - GASTROINTESTINAL Hx Gastrointestinal Disorders: No - GENITOURINARY/GYNECOLOGICAL Hx Genitourinary Disorders: Yes Hx Urinary Tract Infection: Yes - PSYCHIATRIC Hx Anxiety: Yes Hx Depression: Yes Hx Substance Use: No - SURGICAL HISTORY Hx Surgeries: Yes Hx Section: Yes (x2) - ANESTHESIA Hx Anesthesia: Yes Hx Anesthesia Reactions: No Hx Malignant Hyperthermia: No Meds Allergies/Adverse Reactions: Allergies Allergy/AdvReac Type Severity Reaction Status Date / Time ertapenem sodium Allergy Verified 04/17/17 19:30 [From Invanz] Physical Exam - Constitutional Appears: Non-toxic, No Acute Distress - Head Exam Head Exam: ATRAUMATIC, NORMAL INSPECTION - Eye Exam Eye Exam: EOMI, PERRL. absent: Scleral icterus - ENT Exam ENT Exam: Mucous Membranes Moist - Neck Exam Neck exam: Negative for: Tenderness - Respiratory Exam Respiratory Exam: Clear to Auscultation Bilateral, NORMAL BREATHING PATTERN - Cardiovascular Exam Cardiovascular Exam: +S1, +S2, Systolic Murmur - GI/Abdominal Exam GI & Abdominal Exam: Distended, Normal Bowel Sounds, Soft - Extremities Exam Extremities exam: Positive for: pedal edema. Negative for: normal inspection Additional comments: Right ankle ulcer:3.1 cm x 3.1 cm, 0.1 cm in depth, healing Left ankle ulcer: 3 x 2.1 cm, 0.1 cm depth, healing ulcer Chronic venous stasis changes noted Results - Vital Signs Recent Vital Signs: Last Vital Signs Temp 97.2 F L 07/17/17 21:20 Pulse 63 07/17/17 21:20 Resp 20 07/17/17 21:20 BP 162/99 H 07/17/17 21:20 Pulse Ox 97 07/18/17 00:49 - Labs Result Diagrams: 07/17/17 22:25 07/17/17 22:25 Labs: Laboratory Results - last 24 hr 07/17/17 07/17/17 07/17/17 22:25 22:25 22:25 WBC 4.9 RBC 3.74 L Hgb 10.1 L Hct 32.3 L MCV 86.3 MCH 26.9 L MCHC 31.2 L RDW 18.9 H Plt Count 205 MPV 8.9 Neut % (Auto) 71.4 Lymph % (Auto) 16.0 L [place] % (Auto) 10.3 H Eos % (Auto) 1.2 Baso % (Auto) 1.1 Neut # 3.5 Lymph # 0.8 L [place] # 0.5 Eos # 0.1 Baso # 0.1 PT 13.3 H INR 1.2 APTT 34 pO2 VBG pH VBG pCO2 VBG HCO3 VBG Total CO2 VBG O2 Sat (Calc) VBG Base Excess VBG Potassium Glucose Lactate Sodium 139 Potassium 4.8 Chloride 104 Carbon Dioxide 27 Anion Gap 13 BUN 24 H Creatinine 0.8 Est GFR ( Amer) > 60 Est GFR (Non-Af Amer) > 60 Random Glucose 155 H Calcium 8.9 Magnesium 1.8 Total Bilirubin 0.6 AST 42 H ALT 55 H D Alkaline Phosphatase 202 H Troponin I 0.0410 NT-Pro-B Natriuret Pep 2850 H Total Protein 9.0 H Albumin 3.7 Globulin 5.3 H Albumin/Globulin Ratio 0.7 L Venous Blood Potassium Serum Ketones Negative 07/17/17 22:28 WBC RBC Hgb Hct MCV MCH MCHC RDW Plt Count MPV Neut % (Auto) Lymph % (Auto) [place] % (Auto) Eos % (Auto) Baso % (Auto) Neut # Lymph # [place] # Eos # Baso # PT INR APTT pO2 23 L VBG pH 7.34 VBG pCO2 55 VBG HCO3 25.3 VBG Total CO2 31.4 H VBG O2 Sat (Calc) 41.6 VBG Base Excess 2.6 H VBG Potassium 4.7 Glucose 168 H Lactate 1.6 Sodium 145.0 Potassium Chloride 111.0 H Carbon Dioxide Anion Gap BUN Creatinine Est GFR ( Amer) Est GFR (Non-Af Amer) Random Glucose Calcium Magnesium Total Bilirubin AST ALT Alkaline Phosphatase Troponin I NT-Pro-B Natriuret Pep Total Protein Albumin Globulin Albumin/Globulin Ratio Venous Blood Potassium 4.7 Serum Ketones Assessment & Plan - Assessment and Plan (Free Text) Plan: Chronic Non-healing skin ulcers Admit to med/surg Pt with chronic PVD, Diabetes, chronic pedal edema Dr. Mack, Podiatry, consulted: - f/u reccs Compression stockings Nursing communication to keep legs elevated Continued home Bacitracin, Lac-Hydrin 12% solution, Lasix 40mg IV daily Doxy 100mg IV Q12H f/u arterial doppler CHF (diastolic dysfunction) ECHO (03/11/14): LV EF 60%, reversible restrictive diastolic dysfunction - pt refusing follow up ECHO CXR: Cardiomegaly, questionable small left effusion (wetread, f/u left effusion) BNP: 2850 (previous admissions 7400, 1880) Lasix 40mg IV daily Atrial fibrillation EKG: Afib @ 94 bpm, no acute St/T wave changes Xarelto 20mg PO Daily Metorpolol 50mg PO Daily CHADS-2: score 4 pts (positive criteria: CHF, HTN, >75, Diabetes; 8.5% risk of thromboembolic event) HTN BP elevated at admission HOLD home Norvasc 5mg PO Daily due to peripheral edema Imdur 60mg PO Daily Metoprolol 50mg PO Daily Monitor Hyperlipidemia No meds listed on chart f/u lipid panel Type two DM No DM medications listed on [facility] med rec Accuchecks FORTUNATO Hypoglycemia protocol f/u A1C, lipid panel Depression Zoloft 25mg PO Daily Insomnia Trazadone 50mg PO HS Transaminitis AST/ALT 42/55 - mildly elevated Monitor Prophylaxis Xarelto 20mg PO Daily SCDs contraindicated Pepcid 20mg PO BID Francisco Madden PGY-[address] Esquivel investor relations coordinator <Isacc Esquivel P - Last Filed: 07/19/17 22:02> Results - Vital Signs Recent Vital Signs: Last Vital Signs Temp 97.8 F 07/19/17 17:15 Pulse 77 07/19/17 17:15 Resp 20 07/19/17 17:15 BP 126/81 07/19/17 17:15 Pulse Ox 96 07/19/17 17:15 - Labs Result Diagrams: 07/19/17 08:28 07/19/17 08:28 Labs: Laboratory Results - last 24 hr 07/19/17 07/19/17 07/19/17 07:01 08:28 08:28 WBC 4.7 L RBC 3.69 L Hgb 10.1 L Hct 31.9 L MCV 86.5 MCH 27.5 MCHC 31.7 L RDW 18.5 H Plt Count 193 MPV 8.9 Neut % (Auto) 61.1 Lymph % (Auto) 24.1 [place] % (Auto) 12.1 H Eos % (Auto) 1.5 Baso % (Auto) 1.2 Neut # 2.9 Lymph # 1.1 [place] # 0.6 Eos # 0.1 Baso # 0.1 Sodium 137 Potassium 4.9 Chloride 105 Carbon Dioxide 24 Anion Gap 13 BUN 29 H Creatinine 0.9 Est GFR ( Amer) > 60 Est GFR (Non-Af Amer) 60 POC Glucose (mg/dL) 160 H Random Glucose 152 H Calcium 8.6 Total Bilirubin 0.7 AST 40 H ALT 51 Alkaline Phosphatase 201 H Total Protein 8.5 H Albumin 3.5 Globulin 5.1 H Albumin/Globulin Ratio 0.7 L 07/19/17 07/19/17 07/19/17 11:17 16:29 21:04 WBC RBC Hgb Hct MCV MCH MCHC RDW Plt Count MPV Neut % (Auto) Lymph % (Auto) [place] % (Auto) Eos % (Auto) Baso % (Auto) Neut # Lymph # [place] # Eos # Baso # Sodium Potassium Chloride Carbon Dioxide Anion Gap BUN Creatinine Est GFR ( Amer) Est GFR (Non-Af Amer) POC Glucose (mg/dL) 146 H 264 H 228 H Random Glucose Calcium Total Bilirubin AST ALT Alkaline Phosphatase Total Protein Albumin Globulin Albumin/Globulin Ratio Attending/Attestation - Attestation I have personally seen and examined this patient.: Yes I have fully participated in the care of the patient.: Yes I have reviewed all pertinent clinical information: Yes Notes (Text): See note on day of admission.
[2017-07-18] MEDS ORDERED: Glucagon Recombinant 1 mg Inj IM PRN (04:36)
[2017-07-18] MEDS ORDERED: Dextrose 50% SYRINGE Inj (50 ml) IV PRN (04:36)
--- NOTE | 2017-07-18 06:30 | CP.PCM.PN ---
Subjective - Date & Time of Evaluation Date of Evaluation: 07/18/17 Time of Evaluation: 00:30 - Subjective Subjective: Assessment * B/l chronic venous ulcers with necrotic margins, pale base, no significant signs of surrounding infection or cellulitis * Chronic leg edema, skin edema 3 spacing, risk of dehydration with over diuresis * H/o DM * Ambulatory dysfunction due to above * History of afib on xeralto * [place] resident Plan * Duresis with iv lasix for 1-2 days, then re assess hydration status * IV doxycycline * Podiatry consult * Leg elevation * Law boots, spiral clary wrap, debridement of the edges, skin graft as per podiatry * Artrial dopplers * Avoid amlodipine, continue rest of med * See orders for detail. Objective - Vital Signs/Intake and Output Vital Signs (last 24 hours): Temp Pulse Resp BP Pulse Ox 97.8 F 86 22 157/101 H 98 07/18/17 05:55 07/18/17 05:55 07/18/17 05:55 07/18/17 05:55 07/18/17 05:55 - Medications Medications: Current Medications Bacitracin (Bacitracin) 30 gm TOP DAILY [facility] Dextrose (Dextrose 50% Inj) 0 ml IV STAT PRN; Protocol PRN Reason: Hypoglycemia Protocol Dextrose (Glutose 15) 0 gm PO ONCE PRN; Protocol PRN Reason: Hypoglycemia Protocol Famotidine (Pepcid) 20 mg PO BID [facility] Furosemide (Lasix) 40 mg IVP DAILY [facility] Glucagon (Glucagen Diagnostic Kit) 0 mg IM STAT PRN; Protocol PRN Reason: Hypoglycemia Protocol Doxycycline Hyclate 100 mg/ (Sodium Chloride) 100 mls @ 100 mls/hr IVPB Q12H [facility] Last Admin: 07/18/17 03:00 Dose: 100 mls/hr Dextrose (Dextrose 5% In Water 1000 Ml) 1,000 mls @ 0 mls/hr IV .Q0M PRN; Protocol; Per Protocol PRN Reason: Hypoglycemia Protocol Insulin Human Regular (Novolin R) 0 unit SC ACHS [facility] PRN Reason: Protocol Isosorbide Mononitrate (Imdur) 60 mg PO DAILY [facility] Lactic Acid (Lac-Hydrin 12% Lotion (225 G)) 0 gm TOP DAILY [facility] Losartan Potassium (Cozaar) 100 mg PO DAILY [facility] Metoprolol Succinate (Toprol Xl) 50 mg PO DAILY [facility] Rivaroxaban (Xarelto) 20 mg PO DAILY [facility] Sertraline HCl (Zoloft) 25 mg PO DAILY [facility] Trazodone HCl (Desyrel) 25 mg PO HS [facility] - Labs Labs: 07/17/17 22:25 07/17/17 22:25 PT 13.3 SECONDS (9.7-12.2) H 07/17/17 22:25 INR 1.2 07/17/17 22:25 APTT 34 SECONDS (21-34) 07/17/17 22:25
[2017-07-18 07:35] LABS: EOS # 0.1 K/uL (0.0-0.7); LYMPH # 0.8 K/uL (1.0-4.3); MONO # 0.7 K/uL (0.0-0.8)
[2017-07-18] MEDS: (Novolin R) Insulin Human Regular 100 units/ml vial SC SCH ×4 (07:49→22:19)
[2017-07-18 07:50] LABS: BASO % 0.6 % (0.0-2.0); EOS % 0.9 % (0.0-4.0); HEMATOCRIT 30.5 % (34.0-47.0); LYMPH % 14.3 % (20.0-40.0); MEAN CELL VOLUME 85.8 fL (81.0-99.0); MEAN CORPUSCULAR HEMOGLOBIN 27.6 pg (27.0-31.0); MEAN CORPUSCULAR HGB CONC 32.2 g/dL (33.0-37.0); MEAN PLATELET VOLUME 9.1 fL (7.2-11.7); MONO % 13.7 % (0.0-10.0); NRBC % 0.3 % (0.0-2.0); RED CELL DISTRIBUTION WIDTH 18.5 % (11.5-14.5); WHITE BLOOD COUNT 5.5 K/uL (4.8-10.8)
[2017-07-18] MEDS ORDERED: (Novolin R) Insulin Human Regular 100 units/ml vial ONE ×2 (07:51→11:35)
[2017-07-18 07:57] LABS: ALKALINE PHOSPHATASE 199 U/L (38-126); ALT/SGPT 47 U/L (9-52); AST/SGOT 43 U/L (14-36); BILIRUBIN,TOTAL 0.6 mg/dL (0.2-1.3); BLOOD UREA NITROGEN 24 mg/dL (7-17); CALCIUM 8.8 mg/dl (8.6-10.4); CARBON DIOXIDE 25 mmol/L (22-30); CHLORIDE 105 mmol/L (98-107); GFR AFRICAN-AMERICAN > 60; GLUCOSE,RANDOM 209 mg/dL (65-105); MAGNESIUM 1.8 mg/dL (1.6-2.3); PHOSPHOROUS 3.6 mg/dL (2.5-4.5); POTASSIUM 4.7 mmol/L (3.6-5.2); SODIUM 137 mmol/L (132-148); TOTAL PROTEIN 8.3 g/dL (6.3-8.3)
[2017-07-18 08:10] LABS: ALB/GLOB RATIO 0.7 (1.0-2.1)
--- NOTE | 2017-07-18 08:11 | RAD ---
PROCEDURE: CHEST RADIOGRAPH, 1 VIEW HISTORY: Shortness of breath COMPARISON: None available. FINDINGS: LUNGS: Prominent diffuse increased interstitial lung markings suggestive for a moderate venous congestion. More consolidative changes at the left lung base with small left pleural effusion. Scattered nodular densities in the upper lung zones; left greater than right. PLEURA: As above. CARDIOVASCULAR: Cardiomegaly. OSSEOUS STRUCTURES: Degenerative changes in the spine and shoulders. VISUALIZED UPPER ABDOMEN: Normal. OTHER FINDINGS: None. IMPRESSION: Prominent diffuse increased interstitial lung markings suggestive for a moderate venous congestion. More consolidative changes at the left lung base with small left pleural effusion. Scattered nodular densities in the upper lung zones; left greater than right.
[2017-07-18 08:17] LABS: THYROID STIMULATING HORMONE 2.49 mIU/L (0.46-4.68)
--- NOTE | 2017-07-18 08:23 | CP.PCM.CON ---
History of Present Illness - History of Present Illness History of Present Illness: Podiatry Consult Note - Dr. Martinez 87 year old female patient PMHx Afib, HTN, COPD, T2DM, hyperlipidemia, CHF, PVD , depression, seen in ED for evaluation of chronic non-healing ulcerations to bilateral lower extremities. Patient states she has had a wound to the inside of her right ankle for the past 2 years, a wound on the inside of her left ankle for 6 months, and a wound on the back of her right leg recently appeared a few weeks ago. Patient admits to 10/10 pain to the wound on the back of her right leg and states she is unable to put any pressure on the wound. Patient states she has been seeing her automatic beam warper tender Dr. Martinez for management of ulcerations. Patient also states the swelling in both legs makes them feel " hard as rocks" preventing her from being able to ambulate. Patient denies any N/ V/F/D/C/SOB/calf pain. Offers no other pedal complaints at this time. PMHx: Afib, HTN, COPD, T2DM, hyperlipidemia, CHF, PVD, chronic non-healing ulcers and diabetic foot ulcers to bilateral lower extremities PSH: c-sections x2 FH: unknown SH: lives at [facility], denies ETOH/tobacco/illicit elias webb Meds: see med list All: Ertapenem sodium (rash) Review of Systems - Review of Systems All systems: reviewed and no additional remarkable complaints except (as per HPI ) Past Patient History - Infectious Disease Hx of Infectious Diseases: None - Tetanus Immunizations Tetanus Immunization: Unknown - Past Medical History & Family History Past Medical History?: Yes - Past Social History Smoking Status: Never Smoked - CARDIAC Hx Atrial Fibrillation: Yes Hx Congestive Heart Failure: Yes Hx Hypercholesterolemia: Yes Hx Hypertension: Yes Hx Peripheral Edema: Yes - PULMONARY Hx Chronic Obstructive Pulmonary Disease (COPD): Yes - NEUROLOGICAL Hx Dementia: Yes - HEENT Hx HEENT Problems: No - RENAL Hx Chronic Kidney Disease: No - ENDOCRINE/METABOLIC Hx Endocrine Disorders: Yes Hx Diabetes Mellitus Type 2: Yes - HEMATOLOGICAL/ONCOLOGICAL Hx Blood Disorders: No Hx Blood Transfusions: No Hx Blood Transfusion Reaction: No - INTEGUMENTARY Hx Dermatological Problems: Yes Other/Comment: Hx Diabetic foot ulcer and non healing wound - MUSCULOSKELETAL/RHEUMATOLOGICAL Hx Musculoskeletal Disorders: Yes Hx Falls: Yes - GASTROINTESTINAL Hx Gastrointestinal Disorders: No - GENITOURINARY/GYNECOLOGICAL Hx Genitourinary Disorders: Yes Hx Urinary Tract Infection: Yes - PSYCHIATRIC Hx Anxiety: Yes Hx Depression: Yes Hx Substance Use: No - SURGICAL HISTORY Hx Surgeries: Yes Hx Section: Yes (x2) - ANESTHESIA Hx Anesthesia: Yes Hx Anesthesia Reactions: No Hx Malignant Hyperthermia: No Meds Allergies/Adverse Reactions: Allergies Allergy/AdvReac Type Severity Reaction Status Date / Time ertapenem sodium Allergy Verified 04/17/17 19:30 [From Invanz] - Medications Medications: Current Medications Bacitracin (Bacitracin) 30 gm TOP DAILY [facility] Dextrose (Dextrose 50% Inj) 0 ml IV STAT PRN; Protocol PRN Reason: Hypoglycemia Protocol Dextrose (Glutose 15) 0 gm PO ONCE PRN; Protocol PRN Reason: Hypoglycemia Protocol Famotidine (Pepcid) 20 mg PO BID [facility] Furosemide (Lasix) 40 mg IVP DAILY [facility] Glucagon (Glucagen Diagnostic Kit) 0 mg IM STAT PRN; Protocol PRN Reason: Hypoglycemia Protocol Doxycycline Hyclate 100 mg/ (Sodium Chloride) 100 mls @ 100 mls/hr IVPB Q12H [facility] Last Admin: 07/18/17 03:00 Dose: 100 mls/hr Dextrose (Dextrose 5% In Water 1000 Ml) 1,000 mls @ 0 mls/hr IV .Q0M PRN; Protocol; Per Protocol PRN Reason: Hypoglycemia Protocol Insulin Human Regular (Novolin R) 0 unit SC ACHS [facility] PRN Reason: Protocol Last Admin: 07/18/17 07:49 Dose: 2 unit Isosorbide Mononitrate (Imdur) 60 mg PO DAILY [facility] Lactic Acid (Lac-Hydrin 12% Lotion (225 G)) 0 gm TOP DAILY [facility] Losartan Potassium (Cozaar) 100 mg PO DAILY [facility] Metoprolol Succinate (Toprol Xl) 50 mg PO DAILY [facility] Rivaroxaban (Xarelto) 20 mg PO DAILY [facility] Sertraline HCl (Zoloft) 25 mg PO DAILY [facility] Trazodone HCl (Desyrel) 25 mg PO HS [facility] Physical Exam - Constitutional Appears: Well, Non-toxic, No Acute Distress - Extremities Exam Additional comments: Bilateral LE physical exam: VASC: DP pulses weakly palpable 1/4 b/l. PT pulses non-palpable b/l. Temperature gradient cool to cool b/l. CFT <3 seconds to digits x5 b/l. No increase in warmth noted to ulcerations x3. +1 pitting edema noted to bilateral lower extremity. NEURO: Gross sensation diminished b/l. DERM: Ulceration #1 noted to the medial aspect of left ankle measuring approximately 2.1 x 1.9 x 0.2 cm - noted to have a mixed fibrogranular base with macerated rim. Ulceration #2 noted to the medial aspect of right ankle measuring approximately 4.0 x 2.7 x 0.3 cm - noted to have a mixed fibrogranular base with macerated rim. Ulceration #3 noted to the posterior aspect of lower 1/3 of right leg measuring approximately 2.6 x 2.2 x 0.1 cm - noted to have a mixed fibrogranular base with macerated rim. All ulcers have no purulence, no drainage, no malodor, no erythema, no undermining, no tunneling. ORTHO: Tenderness to palpation to ulceration at posterior right leg. No tenderness to palpation ulcerations to bilateral medial ankles. Muscle strength 5/5 for all dorsiflexors, plantarflexors, inverters, and everters. Ankle joint ROM decreased b/l. - Neurological Exam Neurological exam: Alert, Oriented x3 - Psychiatric Exam Psychiatric exam: Normal Affect, Normal Mood Results - Vital Signs Recent Vital Signs: Last Vital Signs Temp 97.8 F 07/18/17 05:55 Pulse 86 07/18/17 05:55 Resp 22 07/18/17 05:55 BP 166/98 H 07/18/17 07:06 Pulse Ox 98 07/18/17 05:55 - Labs Result Diagrams: 07/18/17 07:22 07/18/17 07:22 Labs: Laboratory Results - last 24 hr 07/17/17 07/17/17 07/17/17 22:25 22:25 22:25 WBC 4.9 RBC 3.74 L Hgb 10.1 L Hct 32.3 L MCV 86.3 MCH 26.9 L MCHC 31.2 L RDW 18.9 H Plt Count 205 MPV 8.9 Neut % (Auto) 71.4 Lymph % (Auto) 16.0 L [place] % (Auto) 10.3 H Eos % (Auto) 1.2 Baso % (Auto) 1.1 Neut # 3.5 Lymph # 0.8 L [place] # 0.5 Eos # 0.1 Baso # 0.1 PT 13.3 H INR 1.2 APTT 34 pO2 VBG pH VBG pCO2 VBG HCO3 VBG Total CO2 VBG O2 Sat (Calc) VBG Base Excess VBG Potassium Glucose Lactate Sodium 139 Potassium 4.8 Chloride 104 Carbon Dioxide 27 Anion Gap 13 BUN 24 H Creatinine 0.8 Est GFR ( Amer) > 60 Est GFR (Non-Af Amer) > 60 POC Glucose (mg/dL) Random Glucose 155 H Calcium 8.9 Phosphorus Magnesium 1.8 Total Bilirubin 0.6 AST 42 H ALT 55 H D Alkaline Phosphatase 202 H Troponin I 0.0410 NT-Pro-B Natriuret Pep 2850 H Total Protein 9.0 H Albumin 3.7 Globulin 5.3 H Albumin/Globulin Ratio 0.7 L Venous Blood Potassium Serum Ketones Negative 07/17/17 07/18/17 07/18/17 22:28 07:22 07:22 WBC 5.5 RBC 3.55 L Hgb 9.8 L Hct 30.5 L MCV 85.8 MCH 27.6 MCHC 32.2 L RDW 18.5 H Plt Count 200 MPV 9.1 Neut % (Auto) 70.5 Lymph % (Auto) 14.3 L [place] % (Auto) 13.7 H Eos % (Auto) 0.9 Baso % (Auto) 0.6 Neut # 3.8 Lymph # 0.8 L [place] # 0.7 Eos # 0.1 Baso # 0.0 PT INR APTT pO2 23 L VBG pH 7.34 VBG pCO2 55 VBG HCO3 25.3 VBG Total CO2 31.4 H VBG O2 Sat (Calc) 41.6 VBG Base Excess 2.6 H VBG Potassium 4.7 Glucose 168 H Lactate 1.6 Sodium 145.0 137 Potassium 4.7 Chloride 111.0 H 105 Carbon Dioxide 25 Anion Gap 12 BUN 24 H Creatinine 0.8 Est GFR ( Amer) > 60 Est GFR (Non-Af Amer) > 60 POC Glucose (mg/dL) Random Glucose 209 H Calcium 8.8 Phosphorus 3.6 Magnesium 1.8 Total Bilirubin 0.6 AST 43 H ALT 47 Alkaline Phosphatase 199 H Troponin I NT-Pro-B Natriuret Pep Total Protein 8.3 Albumin 3.5 Globulin 4.8 H Albumin/Globulin Ratio 0.7 L Venous Blood Potassium 4.7 Serum Ketones 07/18/17 07:42 WBC RBC Hgb Hct MCV MCH MCHC RDW Plt Count MPV Neut % (Auto) Lymph % (Auto) [place] % (Auto) Eos % (Auto) Baso % (Auto) Neut # Lymph # [place] # Eos # Baso # PT INR APTT pO2 VBG pH VBG pCO2 VBG HCO3 VBG Total CO2 VBG O2 Sat (Calc) VBG Base Excess VBG Potassium Glucose Lactate Sodium Potassium Chloride Carbon Dioxide Anion Gap BUN Creatinine Est GFR ( Amer) Est GFR (Non-Af Amer) POC Glucose (mg/dL) 220 H Random Glucose Calcium Phosphorus Magnesium Total Bilirubin AST ALT Alkaline Phosphatase Troponin I NT-Pro-B Natriuret Pep Total Protein Albumin Globulin Albumin/Globulin Ratio Venous Blood Potassium Serum Ketones Assessment & Plan - Assessment and Plan (Free Text) Assessment: 87 year old female patient with chronic non-healing ulcerations to bilateral lower extremity Plan: Patient seen and evaluated Discussed with attending, Dr. Martinez afebrile, WBC 5.5 Wound cultures obtained x3 Wounds cleansed with hydrogen peroxide and dressed with DSD Q12 dressing changes - peroxide cleanse, Dakin's soaked wet to dry 4x4 gauze, kerlix Per medicine, Lasix 40mg IV daily Continue IV abx per medicine - Doxycycline 100mg IV Q12H Patient to be admitted to med/surg Podiatry will continue to follow patient while in house
[2017-07-18] MEDS ORDERED: Metoprolol Succinate 50 mg XL Tab PO ONE (09:43)
[2017-07-18] MEDS: Bacitracin Ointment 30 GM TUBE TOP SCH (09:48)
[2017-07-18] MEDS: Metoprolol Succinate 50 mg XL Tab PO SCH (09:49)
--- NOTE | 2017-07-18 10:03 | CARD ---
APPROVED REPORT EKG Measurement Heart [id number] <Conclusion> Atrial fibrillation Septal infarct, age undetermined Abnormal ECG
[2017-07-18] MEDS: Saccharomyces Boulardi 250 mg Cap PO SCH ×2 (11:02→17:56)
[2017-07-18] MEDS: Dakin's Topical 0.25%-Half Strength (480 ml) TOP SCH ×2 (11:40→18:43)
--- NOTE | 2017-07-18 15:08 | CP.PCM.PN ---
Subjective - Date & Time of Evaluation Date of Evaluation: 07/18/17 Time of Evaluation: 15:06 - Subjective Subjective: exam noted plan new cta ( previous done 2012) dopplers show pvd Objective - Vital Signs/Intake and Output Vital Signs (last 24 hours): Temp Pulse Resp BP Pulse Ox 97.5 F L 65 20 151/85 H 100 07/18/17 13:00 07/18/17 13:00 07/18/17 13:00 07/18/17 13:00 07/18/17 13:00 - Medications Medications: Current Medications Bacitracin (Bacitracin) 30 gm TOP DAILY [facility] Last Admin: 07/18/17 09:48 Dose: 30 gm Dextrose (Dextrose 50% Inj) 0 ml IV STAT PRN; Protocol PRN Reason: Hypoglycemia Protocol Dextrose (Glutose 15) 0 gm PO ONCE PRN; Protocol PRN Reason: Hypoglycemia Protocol Famotidine (Pepcid) 20 mg PO BID [facility] Last Admin: 07/18/17 09:49 Dose: 20 mg Furosemide (Lasix) 40 mg IVP DAILY [facility] Last Admin: 07/18/17 10:12 Dose: 40 mg Glucagon (Glucagen Diagnostic Kit) 0 mg IM STAT PRN; Protocol PRN Reason: Hypoglycemia Protocol Doxycycline Hyclate 100 mg/ (Sodium Chloride) 100 mls @ 100 mls/hr IVPB Q12H [facility] Last Admin: 07/18/17 03:00 Dose: 100 mls/hr Dextrose (Dextrose 5% In Water 1000 Ml) 1,000 mls @ 0 mls/hr IV .Q0M PRN; Protocol; Per Protocol PRN Reason: Hypoglycemia Protocol Insulin Human Regular (Novolin R) 0 unit SC ACHS [facility] PRN Reason: Protocol Last Admin: 07/18/17 11:31 Dose: 2 unit Isosorbide Mononitrate (Imdur) 60 mg PO DAILY [facility] Last Admin: 07/18/17 09:49 Dose: 60 mg Lactic Acid (Lac-Hydrin 12% Lotion (225 G)) 0 gm TOP DAILY [facility] Losartan Potassium (Cozaar) 100 mg PO DAILY [facility] Last Admin: 07/18/17 09:48 Dose: 100 mg Metoprolol Succinate (Toprol Xl) 50 mg PO DAILY [facility] Last Admin: 07/18/17 09:49 Dose: 50 mg Rivaroxaban (Xarelto) 20 mg PO DAILY [facility] Last Admin: 07/18/17 11:01 Dose: 20 mg Saccharomyces Boulardii (Florastor) 250 mg PO BID [facility] Last Admin: 07/18/17 11:02 Dose: 250 mg Sertraline HCl (Zoloft) 25 mg PO DAILY [facility] Last Admin: 07/18/17 11:02 Dose: 25 mg Sodium Hypochlorite (Dakins Solution 0.25%) 0 ml TOP BID [facility] Last Admin: 07/18/17 11:40 Dose: 0.25 % Trazodone HCl (Desyrel) 25 mg PO HS [facility] - Labs Labs: 07/18/17 07:22 07/18/17 07:22 PT 13.3 SECONDS (9.7-12.2) H 07/17/17 22:25 INR 1.2 07/17/17 22:25 APTT 34 SECONDS (21-34) 07/17/17 22:25
--- NOTE | 2017-07-18 15:37 | CP.PCM.CON ---
History of Present Illness - History of Present Illness History of Present Illness: Vascular Surgery Consult Note for Dr. Tai Reason for Consult: nonhealing ulcer 87 F with PMH of Afib, HTN, COPD, DM, hyperlipidemia, CHF, PVD, depression, chronic non-healing ulcers, and diabetic foot ulcers bilaterally who presents for non healing wounds to lower extremities. Patient states her leg swelling/ wounds are getting progressively worse. She reports that they are becoming more painful and she is now unable to walk. Patient now uses a wheelchair to get around. She states she has not been able to walk for last 3-4 months. She rates pain as moderate. She describes pain as constant and sharp located at wounds on bilateral extremities without radiation. Per alf, patient is non compliant with medications and wound treatment. Admits weakness and incontinece. Denies recent falls, fever/chills, headache, chest pain, SOB, palpitations. abdominal pain, N/V, diarrehea, or constipation PMD: Reisner PMH: Afib, HTN, COPD, DM, hyperlipidemia, CHF, PVD, chronic non-healing ulcers, diabetic foot ulcers Meds: as per EMR Allergy: Ertapenem sodium (rash) PSH: x 2 FH:unknown Social: Lives in a alf, denies tobacco/EtOH/illicit drug use Review of Systems - Review of Systems All systems: reviewed and no additional remarkable complaints except (lower extremity pain, weakness, urinary incontinence,) Past Patient History - Infectious Disease Hx of Infectious Diseases: None - Tetanus Immunizations Tetanus Immunization: Unknown - Past Medical History & Family History Past Medical History?: Yes - Past Social History Smoking Status: Never Smoked - CARDIAC Hx Cardiac Disorders: Yes Hx Atrial Fibrillation: Yes Hx Congestive Heart Failure: Yes Hx Hypercholesterolemia: Yes Hx Hypertension: Yes Hx Peripheral Edema: Yes - PULMONARY Hx Respiratory Disorders: Yes Hx Chronic Obstructive Pulmonary Disease (COPD): Yes - NEUROLOGICAL Hx Neurological Disorder: Yes Hx Dementia: Yes - HEENT Hx HEENT Problems: No - RENAL Hx Chronic Kidney Disease: No - ENDOCRINE/METABOLIC Hx Endocrine Disorders: Yes Hx Diabetes Mellitus Type 2: Yes - HEMATOLOGICAL/ONCOLOGICAL Hx Blood Disorders: No Hx Blood Transfusions: No Hx Blood Transfusion Reaction: No - INTEGUMENTARY Hx Dermatological Problems: Yes Other/Comment: Hx Diabetic foot ulcer and non healing wound - MUSCULOSKELETAL/RHEUMATOLOGICAL Hx Musculoskeletal Disorders: Yes Hx Falls: Yes - GASTROINTESTINAL Hx Gastrointestinal Disorders: No - GENITOURINARY/GYNECOLOGICAL Hx Genitourinary Disorders: Yes Hx Urinary Tract Infection: Yes - PSYCHIATRIC Hx Psychophysiologic Disorder: Yes Hx Anxiety: Yes Hx Depression: Yes Hx Substance Use: No - SURGICAL HISTORY Hx Surgeries: Yes Hx Section: Yes (x2) - ANESTHESIA Hx Anesthesia: Yes Hx Anesthesia Reactions: No Hx Malignant Hyperthermia: No Meds Allergies/Adverse Reactions: Allergies Allergy/AdvReac Type Severity Reaction Status Date / Time ertapenem sodium Allergy Verified 04/17/17 19:30 [From Invanz] - Medications Medications: Current Medications Bacitracin (Bacitracin) 30 gm TOP DAILY [facility] Last Admin: 07/18/17 09:48 Dose: 30 gm Dextrose (Dextrose 50% Inj) 0 ml IV STAT PRN; Protocol PRN Reason: Hypoglycemia Protocol Dextrose (Glutose 15) 0 gm PO ONCE PRN; Protocol PRN Reason: Hypoglycemia Protocol Famotidine (Pepcid) 20 mg PO BID [facility] Last Admin: 07/18/17 09:49 Dose: 20 mg Furosemide (Lasix) 40 mg IVP DAILY [facility] Last Admin: 07/18/17 10:12 Dose: 40 mg Glucagon (Glucagen Diagnostic Kit) 0 mg IM STAT PRN; Protocol PRN Reason: Hypoglycemia Protocol Doxycycline Hyclate 100 mg/ (Sodium Chloride) 100 mls @ 100 mls/hr IVPB Q12H [facility] Last Admin: 07/18/17 15:33 Dose: 100 mls/hr Dextrose (Dextrose 5% In Water 1000 Ml) 1,000 mls @ 0 mls/hr IV .Q0M PRN; Protocol; Per Protocol PRN Reason: Hypoglycemia Protocol Insulin Human Regular (Novolin R) 0 unit SC ACHS [facility] PRN Reason: Protocol Last Admin: 07/18/17 11:31 Dose: 2 unit Isosorbide Mononitrate (Imdur) 60 mg PO DAILY [facility] Last Admin: 07/18/17 09:49 Dose: 60 mg Lactic Acid (Lac-Hydrin 12% Lotion (225 G)) 0 gm TOP DAILY [facility] Losartan Potassium (Cozaar) 100 mg PO DAILY [facility] Last Admin: 07/18/17 09:48 Dose: 100 mg Metoprolol Succinate (Toprol Xl) 50 mg PO DAILY [facility] Last Admin: 07/18/17 09:49 Dose: 50 mg Rivaroxaban (Xarelto) 20 mg PO DAILY [facility] Last Admin: 07/18/17 11:01 Dose: 20 mg Saccharomyces Boulardii (Florastor) 250 mg PO BID [facility] Last Admin: 07/18/17 11:02 Dose: 250 mg Sertraline HCl (Zoloft) 25 mg PO DAILY [facility] Last Admin: 07/18/17 11:02 Dose: 25 mg Sodium Hypochlorite (Dakins Solution 0.25%) 0 ml TOP BID [facility] Last Admin: 07/18/17 11:40 Dose: 0.25 % Trazodone HCl (Desyrel) 25 mg PO [facility] Physical Exam - Constitutional Appears: No Acute Distress - Head Exam Head Exam: ATRAUMATIC, NORMOCEPHALIC - Eye Exam Eye Exam: Normal appearance - ENT Exam ENT Exam: Mucous Membranes Moist - Respiratory Exam Respiratory Exam: NORMAL BREATHING PATTERN - Cardiovascular Exam Cardiovascular Exam: REGULAR RHYTHM - GI/Abdominal Exam GI & Abdominal Exam: Soft. absent: Tenderness - Extremities Exam Extremities exam: Positive for: pedal edema, tenderness Additional comments: Right ankle ulcer: 3 cm x 3 cm Left ankle ulcer: 3 cm x 2 cm patient has evidence of venous stasis due to increased pigmentation - Neurological Exam Neurological exam: Alert, Oriented x3 - Psychiatric Exam Psychiatric exam: Normal Affect, Normal Mood - Skin Skin Exam: Dry, Warm Results - Vital Signs Recent Vital Signs: Last Vital Signs Temp 97.5 F L 07/18/17 13:00 Pulse 65 07/18/17 13:00 Resp 20 07/18/17 13:00 BP 151/85 H 07/18/17 13:00 Pulse Ox 100 07/18/17 13:00 - Labs Result Diagrams: 07/18/17 07:22 07/18/17 07:22 Labs: Laboratory Results - last 24 hr 07/17/17 07/17/17 07/17/17 22:25 22:25 22:25 WBC 4.9 RBC 3.74 L Hgb 10.1 L Hct 32.3 L MCV 86.3 MCH 26.9 L MCHC 31.2 L RDW 18.9 H Plt Count 205 MPV 8.9 Neut % (Auto) 71.4 Lymph % (Auto) 16.0 L [place] % (Auto) 10.3 H Eos % (Auto) 1.2 Baso % (Auto) 1.1 Neut # 3.5 Lymph # 0.8 L [place] # 0.5 Eos # 0.1 Baso # 0.1 PT 13.3 H INR 1.2 APTT 34 pO2 VBG pH VBG pCO2 VBG HCO3 VBG Total CO2 VBG O2 Sat (Calc) VBG Base Excess VBG Potassium Glucose Lactate Sodium 139 Potassium 4.8 Chloride 104 Carbon Dioxide 27 Anion Gap 13 BUN 24 H Creatinine 0.8 Est GFR ( Amer) > 60 Est GFR (Non-Af Amer) > 60 POC Glucose (mg/dL) Random Glucose 155 H Hemoglobin A1c Calcium 8.9 Phosphorus Magnesium 1.8 Total Bilirubin 0.6 AST 42 H ALT 55 H D Alkaline Phosphatase 202 H Troponin I 0.0410 NT-Pro-B Natriuret Pep 2850 H Total Protein 9.0 H Albumin 3.7 Globulin 5.3 H Albumin/Globulin Ratio 0.7 L Free T4 TSH 3rd Generation Venous Blood Potassium Serum Ketones Negative 07/17/17 07/18/17 07/18/17 22:28 07:22 07:22 WBC RBC Hgb Hct MCV MCH MCHC RDW Plt Count MPV Neut % (Auto) Lymph % (Auto) [place] % (Auto) Eos % (Auto) Baso % (Auto) Neut # Lymph # [place] # Eos # Baso # PT INR APTT pO2 23 L VBG pH 7.34 VBG pCO2 55 VBG HCO3 25.3 VBG Total CO2 31.4 H VBG O2 Sat (Calc) 41.6 VBG Base Excess 2.6 H VBG Potassium 4.7 Glucose 168 H Lactate 1.6 Sodium 145.0 137 Potassium 4.7 Chloride 111.0 H 105 Carbon Dioxide 25 Anion Gap 12 BUN 24 H Creatinine 0.8 Est GFR ( Amer) > 60 Est GFR (Non-Af Amer) > 60 POC Glucose (mg/dL) Random Glucose 209 H Hemoglobin A1c 8.3 H Calcium 8.8 Phosphorus 3.6 Magnesium 1.8 Total Bilirubin 0.6 AST 43 H ALT 47 Alkaline Phosphatase 199 H Troponin I NT-Pro-B Natriuret Pep Total Protein 8.3 Albumin 3.5 Globulin 4.8 H Albumin/Globulin Ratio 0.7 L Free T4 TSH 3rd Generation 2.49 Venous Blood Potassium 4.7 Serum Ketones 07/18/17 07/18/17 07/18/17 07:22 07:42 07:46 WBC 5.5 RBC 3.55 L Hgb 9.8 L Hct 30.5 L MCV 85.8 MCH 27.6 MCHC 32.2 L RDW 18.5 H Plt Count 200 MPV 9.1 Neut % (Auto) 70.5 Lymph % (Auto) 14.3 L [place] % (Auto) 13.7 H Eos % (Auto) 0.9 Baso % (Auto) 0.6 Neut # 3.8 Lymph # 0.8 L [place] # 0.7 Eos # 0.1 Baso # 0.0 PT INR APTT pO2 VBG pH VBG pCO2 VBG HCO3 VBG Total CO2 VBG O2 Sat (Calc) VBG Base Excess VBG Potassium Glucose Lactate Sodium Potassium Chloride Carbon Dioxide Anion Gap BUN Creatinine Est GFR ( Amer) Est GFR (Non-Af Amer) POC Glucose (mg/dL) 220 H Random Glucose Hemoglobin A1c Calcium Phosphorus Magnesium Total Bilirubin AST ALT Alkaline Phosphatase Troponin I NT-Pro-B Natriuret Pep Total Protein Albumin Globulin Albumin/Globulin Ratio Free T4 1.17 TSH 3rd Generation Venous Blood Potassium Serum Ketones 07/18/17 11:18 WBC RBC Hgb Hct MCV MCH MCHC RDW Plt Count MPV Neut % (Auto) Lymph % (Auto) [place] % (Auto) Eos % (Auto) Baso % (Auto) Neut # Lymph # [place] # Eos # Baso # PT INR APTT pO2 VBG pH VBG pCO2 VBG HCO3 VBG Total CO2 VBG O2 Sat (Calc) VBG Base Excess VBG Potassium Glucose Lactate Sodium Potassium Chloride Carbon Dioxide Anion Gap BUN Creatinine Est GFR ( Amer) Est GFR (Non-Af Amer) POC Glucose (mg/dL) 248 H Random Glucose Hemoglobin A1c Calcium Phosphorus Magnesium Total Bilirubin AST ALT Alkaline Phosphatase Troponin I NT-Pro-B Natriuret Pep Total Protein Albumin Globulin Albumin/Globulin Ratio Free T4 TSH 3rd Generation Venous Blood Potassium Serum Ketones Assessment & Plan - Assessment and Plan (Free Text) Plan: 87 F with nonhealing ulcers/wounds on lower extremities -Ct angiography -Lower extremity duplex shows PVD -Management as per primary -Discussed with Dr. Abida Dailey PGY1
[2017-07-18] MEDS ORDERED: Iodixanol 320 mg/ml 150 ml Bottle IV ONE (16:16)
--- NOTE | 2017-07-18 17:57 | CP.PCM.PN ---
<Jonathon Ghosh - Last Filed: 07/18/17 17:52> Subjective - Date & Time of Evaluation Date of Evaluation: 07/18/17 Time of Evaluation: 11:45 - Subjective Subjective: PGY-[address] Kirk. No acute events overnight noted. Patient was seen and examined in the ER. Patient complained of foot pain bilaterally but said the pain is less now after podiatry has seen her and wrapped her feet in gauze. She also complained of urinary incontinence. She did not have any other complaints. The patient is resistant to getting further tests done such as an echo or angio as she believes these tests will worsen her health. Dr Kirk spent considerable time explaining that these tests are necessary to avoid sequela associated with her chronic conditions, however she remained resistant. She denied chest pain, fevers, shortness of breath, nausea, vomiting, diarrhea. Objective - Vital Signs/Intake and Output Vital Signs (last 24 hours): Temp Pulse Resp BP Pulse Ox 97.6 F 73 20 138/86 99 07/18/17 15:00 07/18/17 15:00 07/18/17 15:00 07/18/17 15:00 07/18/17 15:00 - Medications Medications: Current Medications Bacitracin (Bacitracin) 30 gm TOP DAILY [facility] Last Admin: 07/18/17 09:48 Dose: 30 gm Dextrose (Dextrose 50% Inj) 0 ml IV STAT PRN; Protocol PRN Reason: Hypoglycemia Protocol Dextrose (Glutose 15) 0 gm PO ONCE PRN; Protocol PRN Reason: Hypoglycemia Protocol Famotidine (Pepcid) 20 mg PO BID [facility] Last Admin: 07/18/17 09:49 Dose: 20 mg Furosemide (Lasix) 40 mg IVP DAILY [facility] Last Admin: 07/18/17 10:12 Dose: 40 mg Glucagon (Glucagen Diagnostic Kit) 0 mg IM STAT PRN; Protocol PRN Reason: Hypoglycemia Protocol Doxycycline Hyclate 100 mg/ (Sodium Chloride) 100 mls @ 100 mls/hr IVPB Q12H [facility] Last Admin: 07/18/17 15:33 Dose: 100 mls/hr Dextrose (Dextrose 5% In Water 1000 Ml) 1,000 mls @ 0 mls/hr IV .Q0M PRN; Protocol; Per Protocol PRN Reason: Hypoglycemia Protocol Insulin Human Regular (Novolin R) 0 unit SC ACHS [facility] PRN Reason: Protocol Last Admin: 07/18/17 11:31 Dose: 2 unit Isosorbide Mononitrate (Imdur) 60 mg PO DAILY [facility] Last Admin: 07/18/17 09:49 Dose: 60 mg Lactic Acid (Lac-Hydrin 12% Lotion (225 G)) 0 gm TOP DAILY [facility] Losartan Potassium (Cozaar) 100 mg PO DAILY [facility] Last Admin: 07/18/17 09:48 Dose: 100 mg Metoprolol Succinate (Toprol Xl) 50 mg PO DAILY [facility] Last Admin: 07/18/17 09:49 Dose: 50 mg Rivaroxaban (Xarelto) 20 mg PO DAILY [facility] Last Admin: 07/18/17 11:01 Dose: 20 mg Saccharomyces Boulardii (Florastor) 250 mg PO BID [facility] Last Admin: 07/18/17 11:02 Dose: 250 mg Sertraline HCl (Zoloft) 25 mg PO DAILY [facility] Last Admin: 07/18/17 11:02 Dose: 25 mg Sodium Hypochlorite (Dakins Solution 0.25%) 0 ml TOP BID [facility] Last Admin: 07/18/17 11:40 Dose: 0.25 % Trazodone HCl (Desyrel) 25 mg PO HS [facility] - Labs Labs: 07/18/17 07:22 07/18/17 07:22 PT 13.3 SECONDS (9.7-12.2) H 07/17/17 22:25 INR 1.2 07/17/17 22:25 APTT 34 SECONDS (21-34) 07/17/17 22:25 - Additional Findings Additional findings: - Constitutional Appears: Non-toxic, No Acute Distress - Head Exam Head Exam: ATRAUMATIC, NORMAL INSPECTION - Eye Exam Eye Exam: EOMI, PERRL. absent: Scleral icterus - ENT Exam ENT Exam: Mucous Membranes Moist - Neck Exam Neck exam: Negative for: Tenderness - Respiratory Exam Respiratory Exam: Clear to Auscultation Bilateral, NORMAL BREATHING PATTERN - Cardiovascular Exam Cardiovascular Exam: +S1, +S2, Systolic Murmur - GI/Abdominal Exam GI & Abdominal Exam: Distended, Normal Bowel Sounds, Soft - Extremities Exam Extremities exam: Positive for: pedal edema. Negative for: normal inspection Additional comments: On admission: Right ankle ulcer:3.1 cm x 3.1 cm, 0.1 cm in depth, healing Left ankle ulcer: 3 x 2.1 cm, 0.1 cm depth, healing ulcer Posterior right calf 2 x 2 x 1 cm, healing ulcer Chronic venous stasis changes noted (see podiatry note for further descriptors) Assessment and Plan - Assessment and Plan (Free Text) Assessment: Chronic Non-healing skin ulcers Admit to med/surg Pt with chronic PVD, Diabetes, chronic pedal edema Dr Tai, Vascular Surgeon, consulted Dr. Mack, Podiatry, consulted: - Wounds cleansed with hydrogen peroxide and dressed with DSD - Q12 dressing changes - peroxide cleanse, Dakin's soaked wet to dry 4x4 gauze, kerlix Compression stockings Nursing communication to keep legs elevated Continued home Bacitracin, Lac-Hydrin 12% solution Gram Stain/Wound Culture Right Leg 07/18: No polymorphonuclear WBCs observed, No organisms seen Gram Stain/Wound Culture Other Source 07/18: Few polymorphonuclear WBCs, Few gram negative rods Meds: Lasix 40mg IV daily Doxy 100mg IV Q12H Floraster 250mg PO Daily Imaging: CT Angio of ileofem runoff 07/18 refused by patient, stated she will think about getting scan tmr 07/19 Lower extremity duplex shows PVD CHF (diastolic dysfunction) BNP: 2850 (previous admissions 7400, 1880) Meds: Lasix 40mg IV daily Imaging: ECHO (03/11/14): LV EF 60%, reversible restrictive diastolic dysfunction - pt refusing follow up ECHO CXR: Cardiomegaly, questionable small left effusion (wetread, f/u left effusion) Atrial fibrillation EKG: Afib @ 94 bpm, no acute St/T wave changes Xarelto 20mg PO Daily Metorpolol 50mg PO Daily CHADS-2: score 4 pts (positive criteria: CHF, HTN, >75, Diabetes; 8.5% risk of thromboembolic event) HTN BP elevated at admission HOLD home Norvasc 5mg PO Daily due to peripheral edema Imdur 60mg PO Daily Metoprolol 50mg PO Daily Losartan 100mg PO Daily Hyperlipidemia No meds listed on chart f/u lipid panel Type two DM No DM medications listed on alf med rec Accuchecks FORTUNATO Hypoglycemia protocol Diabetic education A1C 07/18: 8.3 F/U lipid panel Depression Zoloft 25mg PO Daily Insomnia Trazadone 50mg PO HS Transaminitis AST/ALT 42/55 - mildly elevated, downtrending Monitor Prophylaxis Xarelto 20mg PO Daily SCDs contraindicated Pepcid 20mg PO BID Pastoral Care - spiritual support Heart healthy diet Turn reposition every q2H <Uzma Kirk V - Last Filed: 07/20/17 22:09> Objective - Vital Signs/Intake and Output Vital Signs (last 24 hours): Temp Pulse Resp BP Pulse Ox 97.3 F L 78 20 157/104 H 97 07/20/17 16:00 07/20/17 16:00 07/20/17 16:00 07/20/17 16:00 07/20/17 16:00 Intake and Output: 07/20/17 07/21/17 18:59 06:59 Intake Total 340 Balance 340 - Medications Medications: Current Medications Bacitracin (Bacitracin) 30 gm TOP DAILY [facility] Last Admin: 07/20/17 11:48 Dose: Not Given Dextrose (Dextrose 50% Inj) 0 ml IV STAT PRN; Protocol PRN Reason: Hypoglycemia Protocol Dextrose (Glutose 15) 0 gm PO ONCE PRN; Protocol PRN Reason: Hypoglycemia Protocol Famotidine (Pepcid) 20 mg PO BID [facility] Last Admin: 07/20/17 17:41 Dose: 20 mg Furosemide (Lasix) 40 mg IVP DAILY [facility] Last Admin: 07/20/17 09:34 Dose: 40 mg Glucagon (Glucagen Diagnostic Kit) 0 mg IM STAT PRN; Protocol PRN Reason: Hypoglycemia Protocol Hydrocortisone (Cortizone 1% Cream) 0 gm EXT BID PRN PRN Reason: Itching / Pruritus Last Admin: 07/20/17 17:46 Dose: 1 applic Doxycycline Hyclate 100 mg/ (Sodium Chloride) 100 mls @ 100 mls/hr IVPB Q12H [facility] Last Admin: 07/20/17 14:11 Dose: 100 mls/hr Dextrose (Dextrose 5% In Water 1000 Ml) 1,000 mls @ 0 mls/hr IV .Q0M PRN; Protocol; Per Protocol PRN Reason: Hypoglycemia Protocol Insulin Human Regular (Novolin R) 0 unit SC ACHS [facility] PRN Reason: Protocol Last Admin: 07/20/17 17:40 Dose: 1 unit Isosorbide Mononitrate (Imdur) 60 mg PO DAILY [facility] Last Admin: 07/20/17 09:32 Dose: 60 mg Lactic Acid (Lac-Hydrin 12% Lotion (225 G)) 0 gm TOP DAILY [facility] Last Admin: 07/20/17 10:08 Dose: 1 applic Losartan Potassium (Cozaar) 100 mg PO DAILY [facility] Last Admin: 07/20/17 09:33 Dose: 100 mg Metoprolol Succinate (Toprol Xl) 50 mg PO DAILY [facility] Last Admin: 07/20/17 09:36 Dose: 50 mg Rivaroxaban (Xarelto) 20 mg PO DAILY [facility] Last Admin: 07/20/17 09:33 Dose: 20 mg Saccharomyces Boulardii (Florastor) 250 mg PO BID [facility] Last Admin: 07/20/17 17:41 Dose: 250 mg Sertraline HCl (Zoloft) 25 mg PO DAILY [facility] Last Admin: 07/20/17 09:33 Dose: 25 mg Sodium Hypochlorite (Dakins Solution 0.25%) 0 ml TOP BID [facility] Last Admin: 07/20/17 10:07 Dose: 0.25 % Trazodone HCl (Desyrel) 25 mg PO HS [facility] Last Admin: 07/19/17 21:00 Dose: 25 mg - Labs Labs: 07/20/17 08:23 07/20/17 08:23 PT 13.3 SECONDS (9.7-12.2) H 07/17/17 22:25 INR 1.2 07/17/17 22:25 APTT 34 SECONDS (21-34) 07/17/17 22:25 Attending/Attestation - Attestation I have personally seen and examined this patient.: Yes I have fully participated in the care of the patient.: Yes I have reviewed all pertinent clinical information, including history, physical exam and plan: Yes Notes (Text): This is late computer entry for 07/18/17. Patient seen, examined, and case discussed with day-time resident. Patient seen in the Emergency Room awaiting for bed for the floors this morning. Patient is an 87 year old Female from alf came in for non-healing ulcers. I spoke with the patient, she does not want echocardiogram, does not want surgery, and she does not believe she has diabetes, reports this is the first time she has ever been told she has diabetes. Patient reports she is going to eat vegetables and her diabetes will be gone. Patient was seen earlier by podiatry resident. patient with noted history of peripheral vascular disease, ordered for arterial / venous dopplers, vascular consult. Discussed with Abida, patient has refused Unna boot with him in the past, Recommended for CT angio of lower extremities. Patient refused CT in the evening; postponed until the morning. Patient's ulcer do not appear infected; there is no surrounding erythema. patient is on Doxcycline IV to cover. patient is on Lasix to reduce edema; Assessment/Plan 1) Chronic Non-healing skin ulcers * Admit to med/surg * Pt with chronic PVD, Diabetes, chronic pedal edema * Podiatry, Dr. Mack on consult * Wound cultures obtained x3-->Follow-up * Wounds cleansed with hydrogen peroxide and dressed with DSD * Q12 dressing changes - peroxide cleanse, Dakin's soaked wet to dry 4x4 gauze , kerlix * Per medicine, Lasix 40mg IV daily * Continue IV abx per medicine - Doxycycline 100mg IV Q12H * Patient to be admitted to med/surg * Podiatry will continue to follow patient while in house * Vascular surgery, Dr. Tai on consult * Patient refused CT angio of ileofemor runoff on 07/18 * Compression stockings * Nursing communication to keep legs elevated * Continued home Bacitracin, Lac-Hydrin 12% solution, * Lasix 40mg IV daily * Doxcycline 100mg IV Q12H * pending venous/arterial doppler * Prior 07/10/16: no evidence of deep/superficial vein thrombosis of the right lower extremity w excellent venous flow. Normal venous flow noted in the left common femoral vein 2) History of CHF (diastolic dysfunction) * ECHO (03/11/14): LV EF 60%, reversible restrictive diastolic dysfunction * Patient actively refuses follow up ECHO * CXR: Cardiomegaly, questionable small left effusion (wetread, f/u left effusion) * BNP: 2850 (previous admissions 7400, 1880) * Lasix 40mg IV daily * Cozaar 100mg PO daily 3) History of Atrial fibrillation * EKG: Afib @ 94 bpm, no acute St/T wave changes * Xarelto 20mg PO Daily * Toprol XL 50mg PO daily * CHADS-2: score 4 pts (positive criteria: CHF, HTN, >75, Diabetes; 8.5% risk of thromboembolic event) 4) History of HTN * BP elevated at admission * HOLD home Norvasc 5mg PO Daily due to peripheral edema * Imdur 60mg PO Daily * Toprol XL 50mg PO daily * Cozaar 100mg PO daily * Monitor 5) History of Hyperlipidemia * No meds listed on chart * f/u lipid panel 6) Type two DM * patient denies she has any history of diabetes; patient reports this is the first time she is being told she had diabetes; attempted to explain to the patient regarding implications of diabetes but she does not want to listen * No DM medications listed on alf med rec * Accuchecks QAC and HS * Low dose RISS * Hypoglycemia protocol * f/u A1C, lipid panel * Health Claims Examiner referral * staff educator referral 7) History of Depression * Zoloft 25mg PO Daily 8) Insomnia * Trazadone 25mg PO HS 9) Transaminitis * AST/ALT 42/55 * Monitor LFTS * hold stating given LFTs 10) Prophylaxis * Xarelto 20mg PO Daily * SCDs contraindicated * Pepcid 20mg PO BID * pastoral care consult * Turn Q2 HR prevent sacral decubitus * PT eval: patient declined
[2017-07-18] MEDS: traZODone 25 mg Tab PO SCH (22:26)
--- NOTE | 2017-07-19 05:49 | CP.PCM.PN ---
<Felicity Fuentes - Last Filed: 07/19/17 05:47> Subjective - Date & Time of Evaluation Date of Evaluation: 07/19/17 Time of Evaluation: 05:47 - Subjective Subjective: No acute events overnight noted. Patient was seen and examined at bedside. Patient complained of foot pain bilaterally but said the pain is less now after podiatry has seen her and wrapped her feet in gauze. She also complained of urinary incontinence. She did not have any other complaints. She denies chest pain, fevers, shortness of breath, nausea, vomiting, diarrhea. Objective - Vital Signs/Intake and Output Vital Signs (last 24 hours): Temp Pulse Resp BP Pulse Ox 97.9 F 77 20 133/89 99 07/18/17 23:42 07/18/17 23:42 07/18/17 23:42 07/18/17 23:42 07/18/17 23:42 Intake and Output: 07/18/17 07/19/17 18:59 06:59 Intake Total 350 Output Total 250 Balance 100 - Medications Medications: Current Medications Bacitracin (Bacitracin) 30 gm TOP DAILY [facility] Last Admin: 07/18/17 09:48 Dose: 30 gm Dextrose (Dextrose 50% Inj) 0 ml IV STAT PRN; Protocol PRN Reason: Hypoglycemia Protocol Dextrose (Glutose 15) 0 gm PO ONCE PRN; Protocol PRN Reason: Hypoglycemia Protocol Famotidine (Pepcid) 20 mg PO BID [facility] Last Admin: 07/18/17 17:56 Dose: 20 mg Furosemide (Lasix) 40 mg IVP DAILY [facility] Last Admin: 07/18/17 10:12 Dose: 40 mg Glucagon (Glucagen Diagnostic Kit) 0 mg IM STAT PRN; Protocol PRN Reason: Hypoglycemia Protocol Doxycycline Hyclate 100 mg/ (Sodium Chloride) 100 mls @ 100 mls/hr IVPB Q12H [facility] Last Admin: 07/19/17 02:08 Dose: 100 mls/hr Dextrose (Dextrose 5% In Water 1000 Ml) 1,000 mls @ 0 mls/hr IV .Q0M PRN; Protocol; Per Protocol PRN Reason: Hypoglycemia Protocol Insulin Human Regular (Novolin R) 0 unit SC ACHS [facility] PRN Reason: Protocol Last Admin: 07/18/17 22:19 Dose: Not Given Isosorbide Mononitrate (Imdur) 60 mg PO DAILY [facility] Last Admin: 07/18/17 09:49 Dose: 60 mg Lactic Acid (Lac-Hydrin 12% Lotion (225 G)) 0 gm TOP DAILY [facility] Losartan Potassium (Cozaar) 100 mg PO DAILY [facility] Last Admin: 07/18/17 09:48 Dose: 100 mg Metoprolol Succinate (Toprol Xl) 50 mg PO DAILY [facility] Last Admin: 07/18/17 09:49 Dose: 50 mg Rivaroxaban (Xarelto) 20 mg PO DAILY [facility] Last Admin: 07/18/17 11:01 Dose: 20 mg Saccharomyces Boulardii (Florastor) 250 mg PO BID [facility] Last Admin: 07/18/17 17:56 Dose: 250 mg Sertraline HCl (Zoloft) 25 mg PO DAILY [facility] Last Admin: 07/18/17 11:02 Dose: 25 mg Sodium Hypochlorite (Dakins Solution 0.25%) 0 ml TOP BID [facility] Last Admin: 07/18/17 18:43 Dose: 0.25 % Trazodone HCl (Desyrel) 25 mg PO HS [facility] Last Admin: 07/18/17 22:26 Dose: 25 mg - Labs Labs: 07/18/17 07:22 07/18/17 07:22 PT 13.3 SECONDS (9.7-12.2) H 07/17/17 22:25 INR 1.2 07/17/17 22:25 APTT 34 SECONDS (21-34) 07/17/17 22:25 - Additional Findings Additional findings: - Constitutional Appears: Non-toxic, No Acute Distress - Head Exam Head Exam: ATRAUMATIC, NORMAL INSPECTION - Eye Exam Eye Exam: EOMI, PERRL. absent: Scleral icterus - ENT Exam ENT Exam: Mucous Membranes Moist - Neck Exam Neck exam: Negative for: Tenderness - Respiratory Exam Respiratory Exam: Clear to Auscultation Bilateral, NORMAL BREATHING PATTERN - Cardiovascular Exam Cardiovascular Exam: +S1, +S2, Systolic Murmur - GI/Abdominal Exam GI & Abdominal Exam: Distended, Normal Bowel Sounds, Soft - Extremities Exam Extremities exam: Positive for: pedal edema. Negative for: normal inspection Additional comments: On admission: Right ankle ulcer:3.1 cm x 3.1 cm, 0.1 cm in depth, healing Left ankle ulcer: 3 x 2.1 cm, 0.1 cm depth, healing ulcer Posterior right calf 2 x 2 x 1 cm, healing ulcer Chronic venous stasis changes noted (see podiatry note for further descriptors) Assessment and Plan - Assessment and Plan (Free Text) Assessment: Chronic Non-healing skin ulcers Admit to med/surg Pt with chronic PVD, Diabetes, chronic pedal edema Dr Tai, Vascular Surgeon, consulted Dr. Mack, Podiatry, consulted: - Wounds cleansed with hydrogen peroxide and dressed with DSD - Q12 dressing changes - peroxide cleanse, Dakin's soaked wet to dry 4x4 gauze, kerlix Compression stockings Nursing communication to keep legs elevated Continued home Bacitracin, Lac-Hydrin 12% solution Gram Stain/Wound Culture Right Leg 07/18: No polymorphonuclear WBCs observed, No organisms seen Gram Stain/Wound Culture Other Source 07/18: Few polymorphonuclear WBCs, Few gram negative rods Meds: Lasix 40mg IV daily Doxy 100mg IV Q12H Floraster 250mg PO Daily Imaging: CT Angio of ileofem runoff 07/18 refused by patient, stated she will think about getting scan tmr 07/19 Lower extremity duplex shows PVD CHF (diastolic dysfunction) BNP: 2850 (previous admissions 7400, 1880) Meds: Lasix 40mg IV daily Imaging: ECHO (03/11/14): LV EF 60%, reversible restrictive diastolic dysfunction - pt refusing follow up ECHO CXR: Cardiomegaly, questionable small left effusion (wetread, f/u left effusion) Atrial fibrillation EKG: Afib @ 94 bpm, no acute St/T wave changes Xarelto 20mg PO Daily Metorpolol 50mg PO Daily CHADS-2: score 4 pts (positive criteria: CHF, HTN, >75, Diabetes; 8.5% risk of thromboembolic event) HTN BP elevated at admission HOLD home Norvasc 5mg PO Daily due to peripheral edema Imdur 60mg PO Daily Metoprolol 50mg PO Daily Losartan 100mg PO Daily Hyperlipidemia No meds listed on chart f/u lipid panel Type two DM No DM medications listed on [facility] med rec Accuchecks FORTUNATO Hypoglycemia protocol Diabetic education A1C 07/18: 8.3 F/U lipid panel Depression Zoloft 25mg PO Daily Insomnia Trazadone 50mg PO HS Transaminitis AST/ALT 42/55 - mildly elevated, downtrending Monitor Prophylaxis Xarelto 20mg PO Daily SCDs contraindicated Pepcid 20mg PO BID Pastoral Care - spiritual support Heart healthy diet Turn reposition every q2H Felicity Fuentes - PGY1 <Joselin Chavez - Last Filed: 07/19/17 15:28> Objective - Vital Signs/Intake and Output Vital Signs (last 24 hours): Temp Pulse Resp BP Pulse Ox 97.6 F 82 20 120/80 99 07/19/17 08:12 07/19/17 08:12 07/19/17 08:12 07/19/17 10:35 07/19/17 08:12 Intake and Output: 07/19/17 07/19/17 06:59 18:59 Intake Total 690 100 Output Total 250 Balance 440 100 - Medications Medications: Current Medications Bacitracin (Bacitracin) 30 gm TOP DAILY [facility] Last Admin: 07/19/17 11:00 Dose: 1 gm Dextrose (Dextrose 50% Inj) 0 ml IV STAT PRN; Protocol PRN Reason: Hypoglycemia Protocol Dextrose (Glutose 15) 0 gm PO ONCE PRN; Protocol PRN Reason: Hypoglycemia Protocol Famotidine (Pepcid) 20 mg PO BID [facility] Last Admin: 07/19/17 10:34 Dose: 20 mg Furosemide (Lasix) 40 mg IVP DAILY [facility] Last Admin: 07/19/17 10:35 Dose: 40 mg Glucagon (Glucagen Diagnostic Kit) 0 mg IM STAT PRN; Protocol PRN Reason: Hypoglycemia Protocol Doxycycline Hyclate 100 mg/ (Sodium Chloride) 100 mls @ 100 mls/hr IVPB Q12H [facility] Last Admin: 07/19/17 14:02 Dose: 100 mls/hr Dextrose (Dextrose 5% In Water 1000 Ml) 1,000 mls @ 0 mls/hr IV .Q0M PRN; Protocol; Per Protocol PRN Reason: Hypoglycemia Protocol Insulin Human Regular (Novolin R) 0 unit SC ACHS [facility] PRN Reason: Protocol Last Admin: 07/19/17 12:09 Dose: Not Given Isosorbide Mononitrate (Imdur) 60 mg PO DAILY [facility] Last Admin: 07/19/17 10:35 Dose: 60 mg Lactic Acid (Lac-Hydrin 12% Lotion (225 G)) 0 gm TOP DAILY [facility] Last Admin: 07/19/17 10:36 Dose: 1 applic Losartan Potassium (Cozaar) 100 mg PO DAILY [facility] Last Admin: 07/19/17 10:35 Dose: 100 mg Metoprolol Succinate (Toprol Xl) 50 mg PO DAILY [facility] Last Admin: 07/19/17 10:37 Dose: 50 mg Rivaroxaban (Xarelto) 20 mg PO DAILY [facility] Last Admin: 07/19/17 10:38 Dose: 20 mg Saccharomyces Boulardii (Florastor) 250 mg PO BID [facility] Last Admin: 07/19/17 10:34 Dose: 250 mg Sertraline HCl (Zoloft) 25 mg PO DAILY [facility] Last Admin: 07/19/17 10:34 Dose: 25 mg Sodium Hypochlorite (Dakins Solution 0.25%) 0 ml TOP BID [facility] Last Admin: 07/19/17 11:17 Dose: 1 % Trazodone HCl (Desyrel) 25 mg PO HS [facility] Last Admin: 07/18/17 22:26 Dose: 25 mg - Labs Labs: 07/19/17 08:28 07/19/17 08:28 PT 13.3 SECONDS (9.7-12.2) H 07/17/17 22:25 INR 1.2 07/17/17 22:25 APTT 34 SECONDS (21-34) 07/17/17 22:25 Attending/Attestation - Attestation I have personally seen and examined this patient.: Yes I have fully participated in the care of the patient.: Yes I have reviewed all pertinent clinical information, including history, physical exam and plan: Yes Notes (Text): Patient was seen and examined,sitting and eating.Denies pain She agrees to go for CTA 1.Non-healing skin ulcers Leg Doppler shows PVD Dr Tai, Vascular Surgeon consulted Dr. Mack, Podiatry, consulted [facility] wound care follow CTA 2.CHF/diastolic continue lasix 3afib on xarelto and metoprolol 4.HTN 5.DM not on meds monitor sugar pt refuses to take meds 6.hyperlipidemia 7.depression' 8tranaminitis-follow labs
[2017-07-19] MEDS: (Novolin R) Insulin Human Regular 100 units/ml vial SC SCH ×4 (08:29→22:18)
[2017-07-19 08:42] LABS: BASO # 0.1 K/uL (0.0-0.2); BASO % 1.2 % (0.0-2.0); EOS # 0.1 K/uL (0.0-0.7); EOS % 1.5 % (0.0-4.0); HEMATOCRIT 31.9 % (34.0-47.0); LYMPH # 1.1 K/uL (1.0-4.3); LYMPH % 24.1 % (20.0-40.0); MEAN CELL VOLUME 86.5 fL (81.0-99.0); MEAN CORPUSCULAR HEMOGLOBIN 27.5 pg (27.0-31.0); MEAN CORPUSCULAR HGB CONC 31.7 g/dL (33.0-37.0); MEAN PLATELET VOLUME 8.9 fL (7.2-11.7); MONO # 0.6 K/uL (0.0-0.8); MONO % 12.1 % (0.0-10.0); NRBC % 0.3 % (0.0-2.0); RED CELL DISTRIBUTION WIDTH 18.5 % (11.5-14.5); WHITE BLOOD COUNT 4.7 K/uL (4.8-10.8)
[2017-07-19 09:07] LABS: ALB/GLOB RATIO 0.7 (1.0-2.1); ALKALINE PHOSPHATASE 201 U/L (38-126); ALT/SGPT 51 U/L (9-52); AST/SGOT 40 U/L (14-36); BILIRUBIN,TOTAL 0.7 mg/dL (0.2-1.3); BLOOD UREA NITROGEN 29 mg/dL (7-17); CALCIUM 8.6 mg/dl (8.6-10.4); CARBON DIOXIDE 24 mmol/L (22-30); CHLORIDE 105 mmol/L (98-107); GFR AFRICAN-AMERICAN > 60; GLUCOSE,RANDOM 152 mg/dL (65-105); POTASSIUM 4.9 mmol/L (3.6-5.2); SODIUM 137 mmol/L (132-148); TOTAL PROTEIN 8.5 g/dL (6.3-8.3)
--- NOTE | 2017-07-19 09:09 | CP.PCM.PN ---
Subjective - Date & Time of Evaluation Date of Evaluation: 07/19/17 Time of Evaluation: 06:55 - Subjective Subjective: Vascular Surgery Dr. Tai Pt S&E @bedside. NAEO. pt has no complaints. denies F/C, SOB, CP, N/V, leg pain. tolerating diet. Objective - Vital Signs/Intake and Output Vital Signs (last 24 hours): Temp Pulse Resp BP Pulse Ox 97.6 F 82 20 135/98 H 99 07/19/17 08:12 07/19/17 08:12 07/19/17 08:12 07/19/17 08:12 07/19/17 08:12 Intake and Output: 07/19/17 07/19/17 06:59 18:59 Intake Total 690 Output Total 250 Balance 440 - Medications Medications: Current Medications Bacitracin (Bacitracin) 30 gm TOP DAILY [facility] Last Admin: 07/18/17 09:48 Dose: 30 gm Dextrose (Dextrose 50% Inj) 0 ml IV STAT PRN; Protocol PRN Reason: Hypoglycemia Protocol Dextrose (Glutose 15) 0 gm PO ONCE PRN; Protocol PRN Reason: Hypoglycemia Protocol Famotidine (Pepcid) 20 mg PO BID [facility] Last Admin: 07/18/17 17:56 Dose: 20 mg Furosemide (Lasix) 40 mg IVP DAILY [facility] Last Admin: 07/18/17 10:12 Dose: 40 mg Glucagon (Glucagen Diagnostic Kit) 0 mg IM STAT PRN; Protocol PRN Reason: Hypoglycemia Protocol Doxycycline Hyclate 100 mg/ (Sodium Chloride) 100 mls @ 100 mls/hr IVPB Q12H [facility] Last Admin: 07/19/17 02:08 Dose: 100 mls/hr Dextrose (Dextrose 5% In Water 1000 Ml) 1,000 mls @ 0 mls/hr IV .Q0M PRN; Protocol; Per Protocol PRN Reason: Hypoglycemia Protocol Insulin Human Regular (Novolin R) 0 unit SC ACHS [facility] PRN Reason: Protocol Last Admin: 07/19/17 08:29 Dose: 1 unit Isosorbide Mononitrate (Imdur) 60 mg PO DAILY [facility] Last Admin: 07/18/17 09:49 Dose: 60 mg Lactic Acid (Lac-Hydrin 12% Lotion (225 G)) 0 gm TOP DAILY [facility] Losartan Potassium (Cozaar) 100 mg PO DAILY [facility] Last Admin: 07/18/17 09:48 Dose: 100 mg Metoprolol Succinate (Toprol Xl) 50 mg PO DAILY [facility] Last Admin: 07/18/17 09:49 Dose: 50 mg Rivaroxaban (Xarelto) 20 mg PO DAILY [facility] Last Admin: 07/18/17 11:01 Dose: 20 mg Saccharomyces Boulardii (Florastor) 250 mg PO BID [facility] Last Admin: 07/18/17 17:56 Dose: 250 mg Sertraline HCl (Zoloft) 25 mg PO DAILY [facility] Last Admin: 07/18/17 11:02 Dose: 25 mg Sodium Hypochlorite (Dakins Solution 0.25%) 0 ml TOP BID [facility] Last Admin: 07/18/17 18:43 Dose: 0.25 % Trazodone HCl (Desyrel) 25 mg PO HS [facility] Last Admin: 07/18/17 22:26 Dose: 25 mg - Labs Labs: 07/19/17 08:28 07/19/17 08:28 PT 13.3 SECONDS (9.7-12.2) H 07/17/17 22:25 INR 1.2 07/17/17 22:25 APTT 34 SECONDS (21-34) 07/17/17 22:25 - Constitutional Appears: Non-toxic, No Acute Distress - Head Exam Head Exam: NORMAL INSPECTION - Eye Exam Eye Exam: Normal appearance - ENT Exam ENT Exam: Mucous Membranes Moist - Respiratory Exam Respiratory Exam: NORMAL BREATHING PATTERN. absent: Accessory Muscle Use, Respiratory Distress - Cardiovascular Exam Cardiovascular Exam: absent: Bradycardia, Tachycardia - GI/Abdominal Exam GI & Abdominal Exam: Soft. absent: Distended, Tenderness - Extremities Exam Additional comments: dressings c/d/i - Neurological Exam Neurological Exam: Alert, Awake, Oriented x3 - Psychiatric Exam Psychiatric exam: Normal Affect, Normal Mood - Skin Skin Exam: Dry, Warm Assessment and Plan - Assessment and Plan (Free Text) Assessment: 87 y/o w/ non-healing B/L leg ulcers - change dressing PRN - f/u CTA results - cont medical management per PMD Pt discussed w/ Dr. Abida Johnson DO PGY2
[2017-07-19] MEDS ORDERED: Iodixanol 320 mg/ml 150 ml Bottle IV ONE (10:17)
[2017-07-19] MEDS: Saccharomyces Boulardi 250 mg Cap PO SCH ×2 (10:34→17:14)
[2017-07-19] MEDS: Ammonium Lactate 12% Lotion (225 g) TOP SCH (10:36)
[2017-07-19] MEDS: Metoprolol Succinate 50 mg XL Tab PO SCH (10:37)
[2017-07-19] MEDS: Bacitracin Ointment 30 GM TUBE TOP SCH (11:00)
[2017-07-19] MEDS: Dakin's Topical 0.25%-Half Strength (480 ml) TOP SCH ×2 (11:17→18:36)
[2017-07-19] MEDS ORDERED: Hydrocortisone 1% Cream (30 GM) EXT SCH (20:15)
[2017-07-19] MEDS: traZODone 25 mg Tab PO SCH (21:00)
[2017-07-19] MEDS: Hydrocortisone 1% Cream (30 GM) EXT PRN (21:07)
--- NOTE | 2017-07-20 02:45 | CP.PCM.PN ---
<XanderlongFelicity - Last Filed: 07/20/17 02:41> Subjective - Date & Time of Evaluation Date of Evaluation: 07/20/17 Time of Evaluation: 02:41 - Subjective Subjective: No acute events overnight noted. Patient was seen and examined at bedside. Foot pain is managed. She denies chest pain, fevers, shortness of breath, nausea, vomiting, diarrhea. Objective - Vital Signs/Intake and Output Vital Signs (last 24 hours): Temp Pulse Resp BP Pulse Ox 98 F 89 18 131/77 98 07/20/17 00:09 07/20/17 00:09 07/20/17 00:09 07/20/17 00:09 07/20/17 00:09 Intake and Output: 07/19/17 07/20/17 18:59 06:59 Intake Total 100 300 Output Total 400 Balance 100 -100 - Medications Medications: Current Medications Bacitracin (Bacitracin) 30 gm TOP DAILY [facility] Last Admin: 07/19/17 11:00 Dose: 1 gm Dextrose (Dextrose 50% Inj) 0 ml IV STAT PRN; Protocol PRN Reason: Hypoglycemia Protocol Dextrose (Glutose 15) 0 gm PO ONCE PRN; Protocol PRN Reason: Hypoglycemia Protocol Famotidine (Pepcid) 20 mg PO BID [facility] Last Admin: 07/19/17 17:14 Dose: 20 mg Furosemide (Lasix) 40 mg IVP DAILY [facility] Last Admin: 07/19/17 10:35 Dose: 40 mg Glucagon (Glucagen Diagnostic Kit) 0 mg IM STAT PRN; Protocol PRN Reason: Hypoglycemia Protocol Hydrocortisone (Cortizone 1% Cream) 0 gm EXT BID PRN PRN Reason: Itching / Pruritus Last Admin: 07/19/17 21:07 Dose: 1 applic Doxycycline Hyclate 100 mg/ (Sodium Chloride) 100 mls @ 100 mls/hr IVPB Q12H [facility] Last Admin: 07/19/17 14:02 Dose: 100 mls/hr Dextrose (Dextrose 5% In Water 1000 Ml) 1,000 mls @ 0 mls/hr IV .Q0M PRN; Protocol; Per Protocol PRN Reason: Hypoglycemia Protocol Insulin Human Regular (Novolin R) 0 unit SC ACHS [facility] PRN Reason: Protocol Last Admin: 07/19/17 22:18 Dose: Not Given Isosorbide Mononitrate (Imdur) 60 mg PO DAILY [facility] Last Admin: 07/19/17 10:35 Dose: 60 mg Lactic Acid (Lac-Hydrin 12% Lotion (225 G)) 0 gm TOP DAILY [facility] Last Admin: 07/19/17 10:36 Dose: 1 applic Losartan Potassium (Cozaar) 100 mg PO DAILY [facility] Last Admin: 07/19/17 10:35 Dose: 100 mg Metoprolol Succinate (Toprol Xl) 50 mg PO DAILY [facility] Last Admin: 07/19/17 10:37 Dose: 50 mg Rivaroxaban (Xarelto) 20 mg PO DAILY [facility] Last Admin: 07/19/17 10:38 Dose: 20 mg Saccharomyces Boulardii (Florastor) 250 mg PO BID [facility] Last Admin: 07/19/17 17:14 Dose: 250 mg Sertraline HCl (Zoloft) 25 mg PO DAILY [facility] Last Admin: 07/19/17 10:34 Dose: 25 mg Sodium Hypochlorite (Dakins Solution 0.25%) 0 ml TOP BID [facility] Last Admin: 07/19/17 18:36 Dose: 0.25 % Trazodone HCl (Desyrel) 25 mg PO HS [facility] Last Admin: 07/19/17 21:00 Dose: 25 mg - Labs Labs: 07/19/17 08:28 07/19/17 08:28 PT 13.3 SECONDS (9.7-12.2) H 07/17/17 22:25 INR 1.2 07/17/17 22:25 APTT 34 SECONDS (21-34) 07/17/17 22:25 - Additional Findings Additional findings: - Constitutional Appears: Non-toxic, No Acute Distress - Head Exam Head Exam: ATRAUMATIC, NORMAL INSPECTION - Eye Exam Eye Exam: EOMI, PERRL. absent: Scleral icterus - ENT Exam ENT Exam: Mucous Membranes Moist - Neck Exam Neck exam: Negative for: Tenderness - Respiratory Exam Respiratory Exam: Clear to Auscultation Bilateral, NORMAL BREATHING PATTERN - Cardiovascular Exam Cardiovascular Exam: +S1, +S2, Systolic Murmur - GI/Abdominal Exam GI & Abdominal Exam: Distended, Normal Bowel Sounds, Soft - Extremities Exam Extremities exam: Positive for: pedal edema. Negative for: normal inspection Additional comments: On admission: Right ankle ulcer:3.1 cm x 3.1 cm, 0.1 cm in depth, healing Left ankle ulcer: 3 x 2.1 cm, 0.1 cm depth, healing ulcer Posterior right calf 2 x 2 x 1 cm, healing ulcer Chronic venous stasis changes noted (see podiatry note for further descriptors) Assessment and Plan - Assessment and Plan (Free Text) Assessment: Chronic Non-healing skin ulcers Admit to med/surg Pt with chronic PVD, Diabetes, chronic pedal edema Dr Tai, Vascular Surgeon, consulted Dr. Mack, Podiatry, consulted: - Wounds cleansed with hydrogen peroxide and dressed with DSD - Q12 dressing changes - peroxide cleanse, Dakin's soaked wet to dry 4x4 gauze, kerlix Compression stockings Nursing communication to keep legs elevated Continued home Bacitracin, Lac-Hydrin 12% solution Gram Stain/Wound Culture Right Leg 07/18: No polymorphonuclear WBCs observed, No organisms seen Gram Stain/Wound Culture Other Source 07/18: Few polymorphonuclear WBCs, Few gram negative rods Meds: Lasix 40mg IV daily Doxy 100mg IV Q12H Floraster 250mg PO Daily Imaging: CT Angio of ileofem runoff 07/18 refused by patient, stated she will think about getting scan tmr 07/19 Lower extremity duplex shows PVD CHF (diastolic dysfunction) BNP: 2850 (previous admissions 7400, 1880) Meds: Lasix 40mg IV daily Imaging: ECHO (03/11/14): LV EF 60%, reversible restrictive diastolic dysfunction - pt refusing follow up ECHO CXR: Cardiomegaly, questionable small left effusion (wetread, f/u left effusion) Atrial fibrillation EKG: Afib @ 94 bpm, no acute St/T wave changes Xarelto 20mg PO Daily Metorpolol 50mg PO Daily CHADS-2: score 4 pts (positive criteria: CHF, HTN, >75, Diabetes; 8.5% risk of thromboembolic event) HTN BP elevated at admission HOLD home Norvasc 5mg PO Daily due to peripheral edema Imdur 60mg PO Daily Metoprolol 50mg PO Daily Losartan 100mg PO Daily Hyperlipidemia No meds listed on chart f/u lipid panel Type two DM No DM medications listed on intermediate med rec Accuchecks FORTUNATO Hypoglycemia protocol Diabetic education A1C 07/18: 8.3 F/U lipid panel Depression Zoloft 25mg PO Daily Insomnia Trazadone 50mg PO HS Transaminitis AST/ALT 40/51 - mildly elevated, downtrending Monitor Prophylaxis Xarelto 20mg PO Daily SCDs contraindicated Pepcid 20mg PO BID Pastoral Care - spiritual support Heart healthy diet Turn reposition every q2H Felicity Fuentes - PGY1 <Uzma Kirk V - Last Filed: 07/20/17 22:31> Objective - Vital Signs/Intake and Output Vital Signs (last 24 hours): Temp Pulse Resp BP Pulse Ox 97.3 F L 78 20 157/104 H 97 07/20/17 16:00 07/20/17 16:00 07/20/17 16:00 07/20/17 16:00 07/20/17 16:00 Intake and Output: 07/20/17 07/21/17 18:59 06:59 Intake Total 340 350 Output Total 400 Balance 340 -50 - Medications Medications: Current Medications Aspirin (Aspirin Chewable) 81 mg PO DAILY [facility] Bacitracin (Bacitracin) 30 gm TOP DAILY [facility] Last Admin: 07/20/17 11:48 Dose: Not Given Dextrose (Dextrose 50% Inj) 0 ml IV STAT PRN; Protocol PRN Reason: Hypoglycemia Protocol Dextrose (Glutose 15) 0 gm PO ONCE PRN; Protocol PRN Reason: Hypoglycemia Protocol Famotidine (Pepcid) 20 mg PO BID [facility] Last Admin: 07/20/17 17:41 Dose: 20 mg Furosemide (Lasix) 40 mg IVP DAILY [facility] Last Admin: 07/20/17 09:34 Dose: 40 mg Glucagon (Glucagen Diagnostic Kit) 0 mg IM STAT PRN; Protocol PRN Reason: Hypoglycemia Protocol Hydrocortisone (Cortizone 1% Cream) 0 gm EXT BID PRN PRN Reason: Itching / Pruritus Last Admin: 07/20/17 17:46 Dose: 1 applic Doxycycline Hyclate 100 mg/ (Sodium Chloride) 100 mls @ 100 mls/hr IVPB Q12H [facility] Last Admin: 07/20/17 14:11 Dose: 100 mls/hr Dextrose (Dextrose 5% In Water 1000 Ml) 1,000 mls @ 0 mls/hr IV .Q0M PRN; Protocol; Per Protocol PRN Reason: Hypoglycemia Protocol Insulin Human Regular (Novolin R) 0 unit SC ACHS [facility] PRN Reason: Protocol Last Admin: 07/20/17 21:51 Dose: Not Given Isosorbide Mononitrate (Imdur) 60 mg PO DAILY [facility] Last Admin: 07/20/17 09:32 Dose: 60 mg Lactic Acid (Lac-Hydrin 12% Lotion (225 G)) 0 gm TOP DAILY [facility] Last Admin: 07/20/17 10:08 Dose: 1 applic Losartan Potassium (Cozaar) 100 mg PO DAILY [facility] Last Admin: 07/20/17 09:33 Dose: 100 mg Metoprolol Succinate (Toprol Xl) 50 mg PO DAILY [facility] Last Admin: 07/20/17 09:36 Dose: 50 mg Rivaroxaban (Xarelto) 20 mg PO DAILY [facility] Last Admin: 07/20/17 09:33 Dose: 20 mg Rosuvastatin Calcium (Crestor) 5 mg PO [facility] Saccharomyces Boulardii (Florastor) 250 mg PO BID [facility] Last Admin: 07/20/17 17:41 Dose: 250 mg Sertraline HCl (Zoloft) 25 mg PO DAILY [facility] Last Admin: 07/20/17 09:33 Dose: 25 mg Sodium Hypochlorite (Dakins Solution 0.25%) 0 ml TOP BID [facility] Last Admin: 07/20/17 18:00 Dose: 1 % Trazodone HCl (Desyrel) 25 mg PO HS [facility] Last Admin: 07/20/17 21:50 Dose: 25 mg - Labs Labs: 07/20/17 08:23 07/20/17 08:23 PT 13.3 SECONDS (9.7-12.2) H 07/17/17 22:25 INR 1.2 07/17/17 22:25 APTT 34 SECONDS (21-34) 07/17/17 22:25 Attending/Attestation - Attestation I have personally seen and examined this patient.: Yes I have fully participated in the care of the patient.: Yes I have reviewed all pertinent clinical information, including history, physical exam and plan: Yes Notes (Text): Patient seen, examined, and case discussed with day-time resident. Patient seen this afternoon. Patient refuses echocardiogram, complains about the lasix, does not believe she has diabetes/nor does she believe she needs medications for diabetes. patient's blood pressure is uncontrolled during the day; Increase Toprol XL 100mg PO daily, start aspirin 81mg PO daily and crestor 5mg PO qHS. Patient 3 wound cultures; f/u results. Infectious Disease consult. Patient is afebrile and no apparent leukocytosis. Ulcers limited to the site. F/u to see if PO option available. Patient was started on Doxycycline; follow-up with microbiology to see if Doxcycline will cover wound cultures. pending dramatic art teacher referral and diabetic education Assessment/Plan 1) Chronic Non-healing skin ulcers * Admit to med/surg * Pt with chronic PVD, Diabetes, chronic pedal edema * Podiatry, Dr. Mack on consult * Wound cultures obtained x3-->Follow-up * Wounds cleansed with hydrogen peroxide and dressed with DSD * Q12 dressing changes - peroxide cleanse, Dakin's soaked wet to dry 4x4 gauze , kerlix * Per medicine, Lasix 40mg IV daily * Continue IV abx per medicine - Doxycycline 100mg IV Q12H * Patient to be admitted to med/surg * Podiatry will continue to follow patient while in house * Vascular surgery, Dr. Tai on consult * Patient refused CT angio of ileofemor runoff on 07/18 * Infectious Disease, Dr Grimaldo f/u recommendations * Wound Cultures * 1st Culture: 07/18 Leg Right Morg Morganii Ss Morganii; Beta Hemolytic Strep Group B * 2nd Culture: 07/18: Proteus Mirabilis, Corynebacterium Species, Gram Negative Alexander * 3rd Culture: 07/18 Proteus Mirabilis, Beta hemolytic Strep Group B, Gram Negative Alexander * Compression stockings * Nursing communication to keep legs elevated * Continued home Bacitracin, Lac-Hydrin 12% solution, * Lasix 40mg IV daily * Doxcycline 100mg IV Q12H * pending venous/arterial doppler * Prior 07/10/16: no evidence of deep/superficial vein thrombosis of the right lower extremity w excellent venous flow. Normal venous flow noted in the left common femoral vein 2) History of CHF (diastolic dysfunction) * ECHO (03/11/14): LV EF 60%, reversible restrictive diastolic dysfunction * Patient actively refuses follow up ECHO * CXR: Cardiomegaly, questionable small left effusion (wetread, f/u left effusion) * BNP: 2850 (previous admissions 7400, 1880) * Lasix 40mg IV daily * Cozaar 100mg PO daily * start Aspirin 81mg PO daily * start Crestor 5mg PO qHS * Increase Toprol XL 100mg PO daily * Monitor daily weights * intake and outputs 3) History of Atrial fibrillation * EKG: Afib @ 94 bpm, no acute St/T wave changes * Xarelto 20mg PO Daily * Toprol XL 50mg PO daily * CHADS-2: score 4 pts (positive criteria: CHF, HTN, >75, Diabetes; 8.5% risk of thromboembolic event) 4) History of HTN * uncontrolled * HOLD home Norvasc 5mg PO Daily due to peripheral edema * Imdur 60mg PO Daily * increased Toprol XL 100mg PO daily * Cozaar 100mg PO daily * Monitor 5) History of Hyperlipidemia * No meds listed on chart * Lipid panel: T, Chol: 126, LDL; 59, HDL: 45 * Crestor 5mg POqHS 6) Type two DM * patient denies she has any history of diabetes; patient reports this is the first time she is being told she had diabetes; attempted to explain to the patient regarding implications of diabetes but she does not want to listen * No DM medications listed on intermediate med rec * [id number]: 8.3 * Changed diet to heart healthy, diabetic,1500 ML diet * Lipid panel: T, Chol: 126, LDL; 59, HDL: 45 * Accuchecks QAC and HS * Low dose RISS * Hypoglycemia protocol * [employer]ic referral * certified diabetes educator referral 7) History of Depression * Zoloft 25mg PO Daily 8) Insomnia * Trazadone 25mg PO HS 9) Transaminitis * AST/ALT 42/55 * Monitor LFTS * Crestor 5mg POqHS * Order Hepatitis panel 10) Anemia * order for iron studies, ferritin, reticulocyte count, b12, folate, haptoglobin , occult blood * likely chronic disease; based on pattern in the EMR 11) Prophylaxis * Xarelto 20mg PO Daily * SCDs contraindicated * Pepcid 20mg PO BID * pastoral care consult * Turn Q2 HR prevent sacral decubitus * PT eval: MATT Disposition: * f/u ID to see if available PO antibiotic available based on wound cultures * Patient continues to refuse echo, CT scan per vascular surgery * BP medications adjusted given it is uncontrolled * pending OT consult
[2017-07-20] MEDS: (Novolin R) Insulin Human Regular 100 units/ml vial SC SCH ×4 (08:06→21:51)
--- NOTE | 2017-07-20 08:20 | CP.PCM.PN ---
Subjective - Date & Time of Evaluation Date of Evaluation: 07/20/17 Time of Evaluation: 07:10 - Subjective Subjective: Vascular Surgery Note for Dr. Tai Patient seen and examined at bedside. No acute event overnight. Patient is lying in bed comfortably. She denies pain in lower extremities. Patient is tolerating diet. denies Fever/Chills, chest pain SOB, palpitations, N/V, diarrhea. Objective - Vital Signs/Intake and Output Vital Signs (last 24 hours): Temp Pulse Resp BP Pulse Ox 98 F 89 18 131/77 98 07/20/17 00:09 07/20/17 00:09 07/20/17 00:09 07/20/17 00:09 07/20/17 00:09 Intake and Output: 07/20/17 07/20/17 06:59 18:59 Intake Total 700 Output Total 400 Balance 300 - Medications Medications: Current Medications Bacitracin (Bacitracin) 30 gm TOP DAILY [facility] Last Admin: 07/19/17 11:00 Dose: 1 gm Dextrose (Dextrose 50% Inj) 0 ml IV STAT PRN; Protocol PRN Reason: Hypoglycemia Protocol Dextrose (Glutose 15) 0 gm PO ONCE PRN; Protocol PRN Reason: Hypoglycemia Protocol Famotidine (Pepcid) 20 mg PO BID [facility] Last Admin: 07/19/17 17:14 Dose: 20 mg Furosemide (Lasix) 40 mg IVP DAILY [facility] Last Admin: 07/19/17 10:35 Dose: 40 mg Glucagon (Glucagen Diagnostic Kit) 0 mg IM STAT PRN; Protocol PRN Reason: Hypoglycemia Protocol Hydrocortisone (Cortizone 1% Cream) 0 gm EXT BID PRN PRN Reason: Itching / Pruritus Last Admin: 07/19/17 21:07 Dose: 1 applic Doxycycline Hyclate 100 mg/ (Sodium Chloride) 100 mls @ 100 mls/hr IVPB Q12H [facility] Last Admin: 07/20/17 03:30 Dose: 100 mls/hr Dextrose (Dextrose 5% In Water 1000 Ml) 1,000 mls @ 0 mls/hr IV .Q0M PRN; Protocol; Per Protocol PRN Reason: Hypoglycemia Protocol Insulin Human Regular (Novolin R) 0 unit SC ACHS [facility] PRN Reason: Protocol Last Admin: 07/20/17 08:06 Dose: 2 unit Isosorbide Mononitrate (Imdur) 60 mg PO DAILY [facility] Last Admin: 07/19/17 10:35 Dose: 60 mg Lactic Acid (Lac-Hydrin 12% Lotion (225 G)) 0 gm TOP DAILY [facility] Last Admin: 07/19/17 10:36 Dose: 1 applic Losartan Potassium (Cozaar) 100 mg PO DAILY [facility] Last Admin: 07/19/17 10:35 Dose: 100 mg Metoprolol Succinate (Toprol Xl) 50 mg PO DAILY [facility] Last Admin: 07/19/17 10:37 Dose: 50 mg Rivaroxaban (Xarelto) 20 mg PO DAILY [facility] Last Admin: 07/19/17 10:38 Dose: 20 mg Saccharomyces Boulardii (Florastor) 250 mg PO BID [facility] Last Admin: 07/19/17 17:14 Dose: 250 mg Sertraline HCl (Zoloft) 25 mg PO DAILY [facility] Last Admin: 07/19/17 10:34 Dose: 25 mg Sodium Hypochlorite (Dakins Solution 0.25%) 0 ml TOP BID [facility] Last Admin: 07/19/17 18:36 Dose: 0.25 % Trazodone HCl (Desyrel) 25 mg PO HS [facility] Last Admin: 07/19/17 21:00 Dose: 25 mg - Labs Labs: 07/19/17 08:28 07/19/17 08:28 PT 13.3 SECONDS (9.7-12.2) H 07/17/17 22:25 INR 1.2 07/17/17 22:25 APTT 34 SECONDS (21-34) 07/17/17 22:25 - Constitutional Appears: No Acute Distress - Head Exam Head Exam: ATRAUMATIC, NORMOCEPHALIC - Eye Exam Eye Exam: EOMI, Normal appearance - ENT Exam ENT Exam: Mucous Membranes Moist - Respiratory Exam Respiratory Exam: NORMAL BREATHING PATTERN - Cardiovascular Exam Cardiovascular Exam: REGULAR RHYTHM - GI/Abdominal Exam GI & Abdominal Exam: Soft. absent: Tenderness - Extremities Exam Additional comments: dressings bilaterally are clean dry and intact - Neurological Exam Neurological Exam: Alert, Awake, Oriented x3 - Psychiatric Exam Psychiatric exam: Normal Affect, Normal Mood - Skin Skin Exam: Dry, Warm Assessment and Plan - Assessment and Plan (Free Text) Plan: 87 F with non-healing bilateral leg ulcers -change dressing PRN -f/u CTA results -medical management per primary -Discussed with Dr. Abida Dailey PGY1
[2017-07-20 08:35] LABS: BASO % 0.8 % (0.0-2.0); EOS # 0.1 K/uL (0.0-0.7); EOS % 1.3 % (0.0-4.0); HEMATOCRIT 31.1 % (34.0-47.0); LYMPH # 1.2 K/uL (1.0-4.3); LYMPH % 24.6 % (20.0-40.0); MEAN CELL VOLUME 86.5 fL (81.0-99.0); MEAN CORPUSCULAR HEMOGLOBIN 27.2 pg (27.0-31.0); MEAN CORPUSCULAR HGB CONC 31.4 g/dL (33.0-37.0); MEAN PLATELET VOLUME 9.1 fL (7.2-11.7); MONO # 0.7 K/uL (0.0-0.8); MONO % 13.8 % (0.0-10.0); NRBC % 0.1 % (0.0-2.0); RED CELL DISTRIBUTION WIDTH 18.2 % (11.5-14.5)
[2017-07-20 08:58] LABS: ALB/GLOB RATIO 0.8 (1.0-2.1); ALKALINE PHOSPHATASE 194 U/L (38-126); ALT/SGPT 45 U/L (9-52); AST/SGOT 40 U/L (14-36); BILIRUBIN,TOTAL 0.8 mg/dL (0.2-1.3); BLOOD UREA NITROGEN 36 mg/dL (7-17); CALCIUM 8.2 mg/dl (8.6-10.4); CARBON DIOXIDE 23 mmol/L (22-30); CHLORIDE 104 mmol/L (98-107); CHOLESTEROL 126 mg/dL (0-199); GFR AFRICAN-AMERICAN > 60; GLUCOSE,RANDOM 195 mg/dL (65-105); POTASSIUM 4.7 mmol/L (3.6-5.2); SODIUM 137 mmol/L (132-148); TOTAL PROTEIN 7.5 g/dL (6.3-8.3)
[2017-07-20] MEDS: Saccharomyces Boulardi 250 mg Cap PO SCH ×2 (09:32→17:41)
[2017-07-20] MEDS: Metoprolol Succinate 50 mg XL Tab PO SCH (09:36)
[2017-07-20] MEDS: Hydrocortisone 1% Cream (30 GM) EXT PRN ×2 (09:36→17:46)
[2017-07-20] MEDS: Dakin's Topical 0.25%-Half Strength (480 ml) TOP SCH ×2 (10:07→18:00)
[2017-07-20] MEDS: Ammonium Lactate 12% Lotion (225 g) TOP SCH (10:08)
--- NOTE | 2017-07-20 10:25 | CP.PCM.PN ---
Subjective - Date & Time of Evaluation Date of Evaluation: 07/20/17 Time of Evaluation: 10:50 - Subjective Subjective: 87 year old female seen concerning chronic non-healing ulcerations to bilateral lower extremities. Patient admits to 2/10 pain to the wound on the back of her right leg when directly contacted and during dressing changes as it is her most "sensitive" ulcer site. PT has no complaints at other ulceration sites. Patient denies any N/V/F/D/C/SOB/calf pain. Offers no other pedal complaints at this time. Objective - Vital Signs/Intake and Output Vital Signs (last 24 hours): Temp Pulse Resp BP Pulse Ox 98 F 89 18 169/96 H 98 07/20/17 00:09 07/20/17 00:09 07/20/17 00:09 07/20/17 09:34 07/20/17 00:09 Intake and Output: 07/20/17 07/20/17 06:59 18:59 Intake Total 700 Output Total 400 Balance 300 - Medications Medications: Current Medications Bacitracin (Bacitracin) 30 gm TOP DAILY [facility] Last Admin: 07/19/17 11:00 Dose: 1 gm Dextrose (Dextrose 50% Inj) 0 ml IV STAT PRN; Protocol PRN Reason: Hypoglycemia Protocol Dextrose (Glutose 15) 0 gm PO ONCE PRN; Protocol PRN Reason: Hypoglycemia Protocol Famotidine (Pepcid) 20 mg PO BID [facility] Last Admin: 07/20/17 09:33 Dose: 20 mg Furosemide (Lasix) 40 mg IVP DAILY [facility] Last Admin: 07/20/17 09:34 Dose: 40 mg Glucagon (Glucagen Diagnostic Kit) 0 mg IM STAT PRN; Protocol PRN Reason: Hypoglycemia Protocol Hydrocortisone (Cortizone 1% Cream) 0 gm EXT BID PRN PRN Reason: Itching / Pruritus Last Admin: 07/20/17 09:36 Dose: 1 applic Doxycycline Hyclate 100 mg/ (Sodium Chloride) 100 mls @ 100 mls/hr IVPB Q12H [facility] Last Admin: 07/20/17 03:30 Dose: 100 mls/hr Dextrose (Dextrose 5% In Water 1000 Ml) 1,000 mls @ 0 mls/hr IV .Q0M PRN; Protocol; Per Protocol PRN Reason: Hypoglycemia Protocol Insulin Human Regular (Novolin R) 0 unit SC ACHS [facility] PRN Reason: Protocol Last Admin: 07/20/17 08:06 Dose: 2 unit Isosorbide Mononitrate (Imdur) 60 mg PO DAILY [facility] Last Admin: 07/20/17 09:32 Dose: 60 mg Lactic Acid (Lac-Hydrin 12% Lotion (225 G)) 0 gm TOP DAILY [facility] Last Admin: 07/20/17 10:08 Dose: 1 applic Losartan Potassium (Cozaar) 100 mg PO DAILY [facility] Last Admin: 07/20/17 09:33 Dose: 100 mg Metoprolol Succinate (Toprol Xl) 50 mg PO DAILY [facility] Last Admin: 07/20/17 09:36 Dose: 50 mg Rivaroxaban (Xarelto) 20 mg PO DAILY [facility] Last Admin: 07/20/17 09:33 Dose: 20 mg Saccharomyces Boulardii (Florastor) 250 mg PO BID [facility] Last Admin: 07/20/17 09:32 Dose: 250 mg Sertraline HCl (Zoloft) 25 mg PO DAILY [facility] Last Admin: 07/20/17 09:33 Dose: 25 mg Sodium Hypochlorite (Dakins Solution 0.25%) 0 ml TOP BID [facility] Last Admin: 07/20/17 10:07 Dose: 0.25 % Trazodone HCl (Desyrel) 25 mg PO HS [facility] Last Admin: 07/19/17 21:00 Dose: 25 mg - Labs Labs: 07/20/17 08:23 07/20/17 08:23 PT 13.3 SECONDS (9.7-12.2) H 07/17/17 22:25 INR 1.2 07/17/17 22:25 APTT 34 SECONDS (21-34) 07/17/17 22:25 - Constitutional Appears: Well, Non-toxic, No Acute Distress - Extremities Exam Additional comments: Bilateral LE physical exam: VASC: DP pulses weakly palpable 1/4 b/l. PT pulses non-palpable b/l. Temperature gradient cool to cool b/l. CFT <3 seconds to digits x5 b/l. No increase in warmth noted to ulcerations x3. +1 pitting edema noted to bilateral lower extremity. NEURO: Gross sensation diminished b/l. DERM: Ulceration #1 noted to the medial aspect of left ankle measuring approximately 2.1 x 1.9 x 0.2 cm - noted to have a mixed fibrotic base with macerated rim. Ulceration #2 noted to the medial aspect of right ankle measuring approximately 4.0 x 2.7 x 0.3 cm - noted to have a mixed fibrogranular base with macerated rim. Ulceration #3 noted to the posterior aspect of lower 1/3 of right leg measuring approximately 2.6 x 2.2 x 0.1 cm - noted to have a mixed fibrogranular base with macerated rim. All ulcers have no purulence, no drainage, no malodor, no erythema, no undermining, no tunneling. ORTHO: Tenderness to palpation to ulceration at posterior right leg. No tenderness to palpation ulcerations to bilateral medial ankles. Muscle strength 5/5 for all dorsiflexors, plantarflexors, inverters, and everters. Ankle joint ROM decreased b/l. 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 Martinez Chart, labs and vitals reviewed. Pt is afebrile, absent leukocytosis. Wound culture results reviewed. Wounds cleansed with hydrogen peroxide and dressed with Dakin's soaked wet to dry 4x4 gauze and kerlix. Continue Q12 dressing changes - peroxide cleanse, Per medicine, Lasix 40mg IV daily Continue IV abx per medicine - Doxycycline 100mg IV Q12H Podiatry will continue to follow patient while in house
[2017-07-20] MEDS: Bacitracin Ointment 30 GM TUBE TOP SCH (11:48)
[2017-07-20] MEDS: traZODone 25 mg Tab PO SCH (21:50)
[2017-07-21 07:35] LABS: BASO % 1.2 % (0.0-2.0); EOS # 0.1 K/uL (0.0-0.7); EOS % 2.7 % (0.0-4.0); HEMATOCRIT 29.9 % (34.0-47.0); LYMPH # 0.8 K/uL (1.0-4.3); LYMPH % 20.8 % (20.0-40.0); MEAN CELL VOLUME 86.5 fL (81.0-99.0); MEAN CORPUSCULAR HEMOGLOBIN 27.4 pg (27.0-31.0); MEAN CORPUSCULAR HGB CONC 31.7 g/dL (33.0-37.0); MEAN PLATELET VOLUME 9.1 fL (7.2-11.7); MONO # 0.6 K/uL (0.0-0.8); MONO % 16.7 % (0.0-10.0); NRBC % 0.1 % (0.0-2.0); RED CELL DISTRIBUTION WIDTH 18.2 % (11.5-14.5); WHITE BLOOD COUNT 3.7 K/uL (4.8-10.8)
--- NOTE | 2017-07-21 07:49 | VASCLAB ---
PROCEDURE: Lower Extremity Venous Duplex Exam. HISTORY: leg pains B/L LE severe edema, venous stasis ulceration, cellulitis. PRIORS: None. TECHNIQUE: Bilateral common femoral, femoral, popliteal and posterior tibial, peroneal and great saphenous veins were evaluated. Flow was assessed with color Doppler, compressibility, assessment of phasic flow and augmentation response. Report prepared by Kristian Avina, T FINDINGS: RIGHT: 1. Common Femoral Vein: 1.1. Compressibility - Fully compressible: Thrombus - None : Flow - Pulsatile: Augmentation -Normal: Reflux - . 2. Femoral Vein: 2.1. Compressibility - Proximal to mid Fully compressible: Thrombus - None : Flow - Pulsatile: Augmentation -Normal: Reflux - . 3. Popliteal Vein: 3.1. Compressibility - Fully compressible: Thrombus - None : Flow - Pulsatile: Augmentation -Normal: Reflux - . 4. Posterior Tibial Vein: 4.1. Not well-visualized. 5. Peroneal Vein: 5.1. Not well-visualized. 6. Great Saphenous Vein: 6.1. Compressibility - Fully compressible: Thrombus - None: Flow - Pulsatile: Augmentation - : Reflux - . LEFT: 1. Common Femoral Vein: 1.1. Compressibility - Fully compressible: Thrombus - None: Flow - Pulsatile: Augmentation -Normal: Reflux - . 2. Femoral Vein: 2.1. Compressibility - Proximal to mid Fully compressible: Thrombus - None: Flow - Pulsatile: Augmentation -Normal: Reflux - . 3. Popliteal Vein: 3.1. Compressibility - Fully compressible: Thrombus - None : Flow - Pulsatile: Augmentation -Normal: Reflux - . 4. Posterior Tibial Vein: 4.1. Not well-visualized. 5. Peroneal Vein: 5.1. Not well-visualized. 6. Great Saphenous Vein: 6.1. Compressibility - Fully compressible: Thrombus - None: Flow - Pulsatile: Augmentation - : Reflux - . OTHER FINDINGS: Right: None significant. Left: None significant. IMPRESSION: Right: The mid to distal femoral,posterior tibial and peroneal veins were not visualized due to severe edema. No evidence of deep or superficial vein thrombosis for those veins clearly visualized in the right lower extremity. Pulsatile venous flow was noted in the major veins. Left: The mid to distal femoral,posterior tibial and peroneal veins were not visualized due to severe edema. No evidence of deep or superficial vein thrombosis for those veins clearly visualized in the left lower extremity. Pulsatile venous flow was noted in the major veins.
[2017-07-21 08:01] LABS: ALKALINE PHOSPHATASE 188 U/L (38-126); ALT/SGPT 40 U/L (9-52); AST/SGOT 38 U/L (14-36); BILIRUBIN,TOTAL 0.9 mg/dL (0.2-1.3); BLOOD UREA NITROGEN 32 mg/dL (7-17); CALCIUM 8.3 mg/dl (8.6-10.4); CARBON DIOXIDE 24 mmol/L (22-30); CHLORIDE 105 mmol/L (98-107); GFR AFRICAN-AMERICAN > 60; GLUCOSE,RANDOM 126 mg/dL (65-105); MAGNESIUM 1.8 mg/dL (1.6-2.3); PHOSPHOROUS 3.2 mg/dL (2.5-4.5); POTASSIUM 4.5 mmol/L (3.6-5.2); SODIUM 138 mmol/L (132-148); TOTAL PROTEIN 6.9 g/dL (6.3-8.3)
[2017-07-21 08:02] LABS: ALB/GLOB RATIO 0.8 (1.0-2.1)
--- NOTE | 2017-07-21 08:23 | CP.PCM.PN ---
Subjective - Date & Time of Evaluation Date of Evaluation: 07/21/17 Time of Evaluation: 07:20 - Subjective Subjective: Vascular Surgery Pt S&E, NAEO. Still with same LE pains with dressing changes. Will try to get CT angio today. Objective - Vital Signs/Intake and Output Vital Signs (last 24 hours): Temp Pulse Resp BP Pulse Ox 97.0 F L 80 20 121/66 99 07/21/17 07:58 07/21/17 07:58 07/21/17 07:58 07/21/17 00:04 07/21/17 07:58 Intake and Output: 07/21/17 07/21/17 06:59 18:59 Intake Total 470 Output Total 400 Balance 70 - Medications Medications: Current Medications Aspirin (Aspirin Chewable) 81 mg PO DAILY [facility] Bacitracin (Bacitracin) 30 gm TOP DAILY [facility] Last Admin: 07/20/17 11:48 Dose: Not Given Dextrose (Dextrose 50% Inj) 0 ml IV STAT PRN; Protocol PRN Reason: Hypoglycemia Protocol Dextrose (Glutose 15) 0 gm PO ONCE PRN; Protocol PRN Reason: Hypoglycemia Protocol Famotidine (Pepcid) 20 mg PO BID [facility] Last Admin: 07/20/17 17:41 Dose: 20 mg Furosemide (Lasix) 40 mg IVP DAILY [facility] Last Admin: 07/20/17 09:34 Dose: 40 mg Glucagon (Glucagen Diagnostic Kit) 0 mg IM STAT PRN; Protocol PRN Reason: Hypoglycemia Protocol Hydrocortisone (Cortizone 1% Cream) 0 gm EXT BID PRN PRN Reason: Itching / Pruritus Last Admin: 07/20/17 17:46 Dose: 1 applic Doxycycline Hyclate 100 mg/ (Sodium Chloride) 100 mls @ 100 mls/hr IVPB Q12H [facility] Last Admin: 07/21/17 02:45 Dose: 100 mls/hr Insulin Human Regular (Novolin R) 0 unit SC ACHS [facility] PRN Reason: Protocol Last Admin: 07/20/17 21:51 Dose: Not Given Isosorbide Mononitrate (Imdur) 60 mg PO DAILY [facility] Last Admin: 07/20/17 09:32 Dose: 60 mg Lactic Acid (Lac-Hydrin 12% Lotion (225 G)) 0 gm TOP DAILY [facility] Last Admin: 07/20/17 10:08 Dose: 1 applic Losartan Potassium (Cozaar) 100 mg PO DAILY [facility] Last Admin: 07/20/17 09:33 Dose: 100 mg Metoprolol Succinate (Toprol Xl) 100 mg PO DAILY [facility] Rivaroxaban (Xarelto) 20 mg PO DAILY [facility] Last Admin: 07/20/17 09:33 Dose: 20 mg Rosuvastatin Calcium (Crestor) 5 mg PO [facility] Saccharomyces Boulardii (Florastor) 250 mg PO BID [facility] Last Admin: 07/20/17 17:41 Dose: 250 mg Sertraline HCl (Zoloft) 25 mg PO DAILY [facility] Last Admin: 07/20/17 09:33 Dose: 25 mg Sodium Hypochlorite (Dakins Solution 0.25%) 0 ml TOP BID [facility] Last Admin: 07/20/17 18:00 Dose: 1 % Trazodone HCl (Desyrel) 25 mg PO HS [facility] Last Admin: 07/20/17 21:50 Dose: 25 mg - Labs Labs: 07/21/17 07:14 07/21/17 07:14 PT 13.3 SECONDS (9.7-12.2) H 07/17/17 22:25 INR 1.2 07/17/17 22:25 APTT 34 SECONDS (21-34) 07/17/17 22:25 - Constitutional Appears: Non-toxic, No Acute Distress - Head Exam Head Exam: ATRAUMATIC, NORMOCEPHALIC - Eye Exam Eye Exam: EOMI. absent: Scleral icterus - Respiratory Exam Respiratory Exam: NORMAL BREATHING PATTERN. absent: Respiratory Distress - GI/Abdominal Exam GI & Abdominal Exam: Soft. absent: Distended, Tenderness - Extremities Exam Additional comments: Podiatry dressings in place - Neurological Exam Neurological Exam: Alert, Awake - Skin Skin Exam: Dry, Warm Assessment and Plan - Assessment and Plan (Free Text) Assessment: 87 F with non-healing bilateral leg ulcers Plan: Dressing changes per podiatry Try to get CTA today to evaluate bloodflow D/W Dr. Abida Esquivel PGY4
[2017-07-21] MEDS: (Novolin R) Insulin Human Regular 100 units/ml vial SC SCH ×4 (08:29→22:00)
--- NOTE | 2017-07-21 09:08 | CP.PCM.PN ---
Subjective - Date & Time of Evaluation Date of Evaluation: 07/21/17 Time of Evaluation: 09:05 - Subjective Subjective: Progress note for Dr. Avendaño Patient seen and examined at bedside this morning. Patient states she does not have any pain in her lower extremities and is unsure of who her foot doctor is at the hospital. Discussed with patient the benefits of getting CT angio of lower extremities and patient states that she will consider getting a CT angio done. Patient denies any shortness of breath, chest pain, dizziness. Patient states she has fluid retention. Objective - Vital Signs/Intake and Output Vital Signs (last 24 hours): Temp Pulse Resp BP Pulse Ox 97.0 F L 80 20 121/66 99 07/21/17 07:58 07/21/17 07:58 07/21/17 07:58 07/21/17 00:04 07/21/17 07:58 Intake and Output: 07/21/17 07/21/17 06:59 18:59 Intake Total 470 Output Total 400 Balance 70 - Medications Medications: Current Medications Aspirin (Aspirin Chewable) 81 mg PO DAILY [facility] Bacitracin (Bacitracin) 30 gm TOP DAILY [facility] Last Admin: 07/20/17 11:48 Dose: Not Given Dextrose (Dextrose 50% Inj) 0 ml IV STAT PRN; Protocol PRN Reason: Hypoglycemia Protocol Dextrose (Glutose 15) 0 gm PO ONCE PRN; Protocol PRN Reason: Hypoglycemia Protocol Famotidine (Pepcid) 20 mg PO BID [facility] Last Admin: 07/20/17 17:41 Dose: 20 mg Furosemide (Lasix) 40 mg IVP DAILY [facility] Last Admin: 07/20/17 09:34 Dose: 40 mg Glucagon (Glucagen Diagnostic Kit) 0 mg IM STAT PRN; Protocol PRN Reason: Hypoglycemia Protocol Hydrocortisone (Cortizone 1% Cream) 0 gm EXT BID PRN PRN Reason: Itching / Pruritus Last Admin: 07/20/17 17:46 Dose: 1 applic Doxycycline Hyclate 100 mg/ (Sodium Chloride) 100 mls @ 100 mls/hr IVPB Q12H [facility] Last Admin: 07/21/17 02:45 Dose: 100 mls/hr Insulin Human Regular (Novolin R) 0 unit SC ACHS [facility] PRN Reason: Protocol Last Admin: 07/21/17 08:29 Dose: 1 unit Isosorbide Mononitrate (Imdur) 60 mg PO DAILY [facility] Last Admin: 07/20/17 09:32 Dose: 60 mg Lactic Acid (Lac-Hydrin 12% Lotion (225 G)) 0 gm TOP DAILY [facility] Last Admin: 07/20/17 10:08 Dose: 1 applic Losartan Potassium (Cozaar) 100 mg PO DAILY [facility] Last Admin: 07/20/17 09:33 Dose: 100 mg Metoprolol Succinate (Toprol Xl) 100 mg PO DAILY [facility] Rivaroxaban (Xarelto) 20 mg PO DAILY [facility] Last Admin: 07/20/17 09:33 Dose: 20 mg Rosuvastatin Calcium (Crestor) 5 mg PO [facility] Saccharomyces Boulardii (Florastor) 250 mg PO BID [facility] Last Admin: 07/20/17 17:41 Dose: 250 mg Sertraline HCl (Zoloft) 25 mg PO DAILY [facility] Last Admin: 07/20/17 09:33 Dose: 25 mg Sodium Hypochlorite (Dakins Solution 0.25%) 0 ml TOP BID [facility] Last Admin: 07/20/17 18:00 Dose: 1 % Trazodone HCl (Desyrel) 25 mg PO HS [facility] Last Admin: 07/20/17 21:50 Dose: 25 mg - Labs Labs: 07/21/17 07:14 07/21/17 07:14 PT 13.3 SECONDS (9.7-12.2) H 07/17/17 22:25 INR 1.2 07/17/17 22:25 APTT 34 SECONDS (21-34) 07/17/17 22:25 - Constitutional Appears: Non-toxic - Head Exam Head Exam: NORMAL INSPECTION - Eye Exam Eye Exam: EOMI, Normal appearance - ENT Exam ENT Exam: Mucous Membranes Moist - Neck Exam Neck Exam: Full ROM - Respiratory Exam Respiratory Exam: NORMAL BREATHING PATTERN. absent: Accessory Muscle Use - Cardiovascular Exam Cardiovascular Exam: +S1, +S2, Murmur - GI/Abdominal Exam GI & Abdominal Exam: Soft. absent: Tenderness - Extremities Exam Extremities Exam: Pedal Edema. absent: Normal Capillary Refill Additional comments: Right ankle ulcer:3.1 cm x 3.1 cm, 0.1 cm in depth, stage 3 healing ulcer Left ankle ulcer: 3 x 2.1 cm, 0.1 cm depth, stage 3 healing healing ulcer Posterior right calf 2 x 2 x 1 cm, stage 3 healing ulcer - Neurological Exam Neurological Exam: Awake - Psychiatric Exam Psychiatric exam: Normal Affect, Normal Mood - Skin Skin Exam: Dry, Pallor Assessment and Plan - Assessment and Plan (Free Text) Assessment: Chronic Non-healing skin ulcers Admitted to med/surg Pt with chronic PVD, Diabetes, chronic pedal edema Dr Tai, Vascular Surgeon, consulted Dr. Mack, Podiatry, consulted: - Wounds cleansed with hydrogen peroxide and dressed with DSD - Q12 dressing changes - peroxide cleanse, Dakin's soaked wet to dry 4x4 gauze, kerlix Compression stockings Nursing communication to keep legs elevated Continued home Bacitracin, Lac-Hydrin 12% solution Gram Stain/Wound Culture Right Leg 07/18: No polymorphonuclear WBCs observed, No organisms seen Gram Stain/Wound Culture Other Source 07/18: Few polymorphonuclear WBCs, Few gram negative rods Meds: Lasix 40mg IV daily Doxy 100mg IV Q12H Floraster 250mg PO Daily Imagin/16 CXR: prominent diffuse increased interstitial lung markings suggesting moderate venous congestion. consolidative changes at left lung base with small left pleural effusion. scattered nodular densities in upper lung zones with left greater than right 07/18 Lower extremity duplex shows PVD Right: mid to distal femoral, posterior tibial and peroneal veins were not visualized due to severe edema. no evidence of DVT or superficial vein thrombosis of veins. pulsatile venous flow was noted in the major veins. Left: mid to distal femoral, posterior tibial and peroneal veins were not visualized due to severe edema. no evidence of deep or superficial vein thrombosis for veins clearly visualized in left lower extremity. pulsatile flow noted in major veins CHF (diastolic dysfunction) 07/18 CT Angio of ileofem runoff refused by patient, stated she will think about getting scan tomorrow 07/19 07/21 patient continues to state she will consider CTA of ileofemoral runoff. Diastolic CHF history ECHO (03/11/14): LV EF 60%, reversible restrictive diastolic dysfunction - pt refusing follow up ECHO BNP: 2850 (previous admissions 7400, 1880) 07/21 Echo ordered Atrial fibrillation EKG: Afib @ 94 bpm, no acute St/T wave changes Xarelto 20mg PO Daily Metoprolol 50mg PO Daily CHADS-2: score 4 pts (positive criteria: CHF, HTN, >75, Diabetes; 8.5% risk of thromboembolic event) HTN BP elevated at admission HOLD home Norvasc 5mg PO Daily due to peripheral edema Imdur 60mg PO Daily Metoprolol 50mg PO Daily Losartan 100mg PO Daily Hyperlipidemia, no home meds 07/20 lipid panel TG 56 Cholesterol 126 LDL 59 HDL 45 T2DM No DM medications listed on [facility]dc med rec Accucheckshannan BUCIO Hypoglycemia protocol Diabetic education A1C 07/18: 8.3 F/U lipid panel Depression Zoloft 25mg PO Daily Insomnia Trazadone 50mg PO HS Transaminitis, downtrending AST/ALT 38/40 Monitor Diet: Heart healthy diet Prophylaxis Xarelto 20mg PO Daily SCDs contraindicated Pepcid 20mg PO BID [facility]oral [facility] - spiritual support Turn reposition every Q2H
[2017-07-21] MEDS: Saccharomyces Boulardi 250 mg Cap PO SCH ×2 (11:03→18:17)
[2017-07-21] MEDS: Metoprolol Succinate 100 mg XL Tab PO SCH (11:03)
[2017-07-21] MEDS: Dakin's Topical 0.25%-Half Strength (480 ml) TOP SCH ×2 (11:04→18:18)
--- NOTE | 2017-07-21 12:08 | CP.PCM.CON ---
History of Present Illness - History of Present Illness History of Present Illness: 87 F with PMH of Afib, HTN, COPD, DM, hyperlipidemia, CHF, PVD, depression, chronic non-healing ulcers, and diabetic foot ulcers bilaterally who presents for non healing wounds to lower extremities. Patient states her leg swelling/ wounds are getting progressively worse. She reports that they are becoming more painful and she is now unable to walk. referred for ID eval/ antibiotic management PMD: [place] PMH: Afib, HTN, COPD, DM, hyperlipidemia, CHF, PVD, chronic non-healing ulcers, diabetic foot ulcers Meds: as per EMR Allergy: Ertapenem sodium (rash) PSH: x 2 FH:unknown Social: Lives in a fdc, denies tobacco/EtOH/illicit drug use Review of Systems - Review of Systems All systems: reviewed and no additional remarkable complaints except - Constitutional Constitutional: As Per HPI - EENT Eyes: absent: As Per HPI, Blind Spots, Blurred Vision, Change in Vision, Decreased Night Vision, Diplopia, Discharge, Dry Eye, Exophthalmos, Floaters, Irritation, Itchy Eyes, Loss of Peripheral Vision, Pain, Photophobia, Requires Corrective Lenses, Sees Flashes, Spots in Vision, Tunnel Vision, Other Visual Disturbances, Loss of Vision, Other Ears: absent: As Per HPI, Decreased Hearing, Ear Discharge, Ear Pain, Tinnitus, Abnormal Hearing, Disequilibrium, Dizziness, Other Nose/Mouth/Throat: absent: As Per HPI, Epistaxis, Nasal Congestion, Nasal Discharge, Nasal Obstruction, Nasal Trauma, Nose Pain, Post Nasal Drip, Sinus Pain, Sinus Pressure, Bleeding Gums, Change in Voice, Dental Pain, Dry Mouth, Dysphagia, Halitosis, Hoarsness, Lip Swelling, Mouth Lesions, Mouth Pain, Odynophagia, Sore Throat, Throat Swelling, Tongue Swelling, Facial Pain, Neck Pain, Neck Mass, Other - Breasts Breasts: absent: As Per HPI, Change in Shape, Mass, Pain, Nipple Discharge, Nipple Inversion, Skin Changes, Swelling, Other - Cardiovascular Cardiovascular: absent: As Per HPI, Acrocyanosis, Chest Pain, Chest Pain at Rest , Chest Pain with Activity, Claudication, Diaphoresis, Dyspnea, Dyspnea on Exertion, Edema, Irregular Heart Rhythm, Pain Radiating to Arm/Neck/Jaw, Leg Edema, Leg Ulcers, Lightheadedness, Orthopnea, Palpitations, Paroxysmal Nocturnal Dyspnea, Pedal Edema, Radiating Pain, Rapid Heart Rate, Slow Heart Rate, Syncope, Other - Respiratory Respiratory: absent: As Per HPI, Cough, Dyspnea, Hemoptysis, Dyspnea on Exertion , Wheezing, Snoring, Stridor, Pain on Inspiration, Chest Congestion, Excessive Mucous Production, Change in Mucous Color, Pain with Coughing, Other - Gastrointestinal Gastrointestinal: absent: As Per HPI, Abdominal Pain, Belching, Bloating, Change in Bowel Habits, Change in Stool Character, Coffee Ground Emesis, Constipation, Cramping, Diarrhea, Dyspepsia, Dysphagia, Early Satiety, Excessive Flatus, Fecal Incontinence, Heartburn, Hematemesis, Hematochezia, Loose Stools, Melena, Nausea, Odynophagia, Temesmus, Vomiting, Other - Genitourinary Genitourinary: absent: As Per HPI, Change in Urinary Stream, Difficulty Urinating, Dysuria, Flank Pain, Hematuria, Pyuria, Nocturia, Urinary Incontinence, Urinary Frequency, Urinary Hesitance, Urinary Urgency, Voiding Freq/Small Amts, Freq UTI, Hx Renal/Bladder Calculi, Hx /Renal Surgery, Bladder Distension, Other - Reproductive: Female Reproductive:Female: absent: As Per HPI, Amenorrhea, Amenorrhea/ Control, Currently Menstual, Cycle <21 Days, Cycle >35 Days, Cycle Variable, Menses 1-7 Days, Menses >/= 8 Days, Menses Variable, Cycle > 4 Weeks Between, No Menses for 6 Months, Heavy Menses, Light Menses, Normal Menses, Spotting Between Cycles , S/P Hysterectomy, Menopausal, Post Menopausal, Premenarche, Abnormal Vaginal Bleeding, Dysmenorrhea, Dyspareunia, Genital Lesions, Genital Pruritis, Pelvic Pain, Prolapse Symptoms, Sexual Dysfunction, Vaginal Discharge, Vaginal Dryness , Vaginal Odor, Vaginal Pruritis, Other - Menstruation Menstruation: absent: As Per HPI, Amenorrhea, Amenorrhea/ Control, Currently Menstual, Cycle <21 Days, Cycle >35 Days, Cycle Variable, Menses 1-7 Days, Menses >/= 8 Days, Menses Variable, Cycle > 4 Weeks Between, No Menses for 6 Months, Heavy Menses, Light Menses, Normal Menses, Spotting Between Cycles , S/P Hysterectomy, Menopausal, Post Menopausal, Premenarche, Abnormal Vaginal Bleeding, Dysmenorrhea, Other - Musculoskeletal Musculoskeletal: As Per HPI - Integumentary Integumentary: As Per HPI, Skin Pain, Wounds - Neurological Neurological: absent: As Per HPI, Abnormal Gait, Abnormal Hearing, Abnormal Movements, Abnormal Speech, Behavioral Changes, Burning Sensations, Confusion, Convulsions, Disequilibrium, Dizziness, Numbness, Focal Weakness, Frequent Falls , Headaches, Lack of Coordination, Loss of Vision, Memory Loss, Paresthesias, Radicular Pain, Restless Legs, Sensory Deficit, Syncope, Tingling, Tremor, Vertigo, Weakness, Other Visual Disturbances, Other - Psychiatric Psychiatric: absent: As Per HPI, Abnormal Sleep Pattern, Anhedonia, Anxiety, Auditory Hallucinations, Behavioral Changes, Change in Appetite, Change in Libido, Confusion, Depression, Difficulty Concentrating, Hallucinations, Homicidal Ideation, Hopelessness, Irritability, Memory Loss, Mood Swings, Panic Attacks, Paranoia, Suicidal Ideation, Visual Hallucinations, Tactile Hallucinations, Other - Endocrine Endocrine: absent: As Per HPI, Change in Body Appearance, Change in Libido, Cold Intolorance, Deepening of Voice, Excessive Sweating, Fatigue, Flushing, Heat Intolorance, Increase in Ring/Shoe/Hat Size, Palpitations, Polydipsia, Polyphagia, Polyuria, Other - Hematologic/Lymphatic Hematologic: absent: As Per HPI, Easy Bleeding, Easy Bruising, Lymphadenopathy, Other Past Patient History - Infectious Disease Hx of Infectious Diseases: None - Tetanus Immunizations Tetanus Immunization: Unknown - Past Medical History & Family History Past Medical History?: Yes - Past Social History Smoking Status: Never Smoked - CARDIAC Hx Congestive Heart Failure: Yes Hx Hypertension: Yes - PULMONARY Hx Chronic Obstructive Pulmonary Disease (COPD): Yes - NEUROLOGICAL Hx Neurological Disorder: Yes Hx Dementia: Yes - HEENT Hx HEENT Problems: No - RENAL Hx Chronic Kidney Disease: No - ENDOCRINE/METABOLIC Hx Endocrine Disorders: Yes Hx Diabetes Mellitus Type 2: Yes - HEMATOLOGICAL/ONCOLOGICAL Hx Blood Disorders: No Hx Blood Transfusions: No Hx Blood Transfusion Reaction: No - INTEGUMENTARY Hx Dermatological Problems: Yes Other/Comment: Hx Diabetic foot ulcer and non healing wound - MUSCULOSKELETAL/RHEUMATOLOGICAL Hx Musculoskeletal Disorders: Yes Hx Falls: Yes - GASTROINTESTINAL Hx Gastrointestinal Disorders: No - GENITOURINARY/GYNECOLOGICAL Hx Genitourinary Disorders: Yes Hx Urinary Tract Infection: Yes - PSYCHIATRIC Hx Psychophysiologic Disorder: Yes Hx Anxiety: Yes Hx Depression: Yes Hx Substance Use: No - SURGICAL HISTORY Hx Surgeries: Yes Hx Section: Yes (x2) - ANESTHESIA Hx Anesthesia: Yes Hx Anesthesia Reactions: No Hx Malignant Hyperthermia: No Meds Allergies/Adverse Reactions: Allergies Allergy/AdvReac Type Severity Reaction Status Date / Time ertapenem sodium Allergy Verified 04/17/17 19:30 [From Invanz] - Medications Medications: Current Medications Aspirin (Aspirin Chewable) 81 mg PO DAILY [facility] Last Admin: 07/21/17 11:03 Dose: 81 mg Bacitracin (Bacitracin) 30 gm TOP DAILY [facility] Last Admin: 07/20/17 11:48 Dose: Not Given Dextrose (Dextrose 50% Inj) 0 ml IV STAT PRN; Protocol PRN Reason: Hypoglycemia Protocol Dextrose (Glutose 15) 0 gm PO ONCE PRN; Protocol PRN Reason: Hypoglycemia Protocol Famotidine (Pepcid) 20 mg PO BID [facility] Last Admin: 07/21/17 11:03 Dose: 20 mg Furosemide (Lasix) 40 mg IVP DAILY [facility] Last Admin: 07/21/17 11:02 Dose: 40 mg Glucagon (Glucagen Diagnostic Kit) 0 mg IM STAT PRN; Protocol PRN Reason: Hypoglycemia Protocol Hydrocortisone (Cortizone 1% Cream) 0 gm EXT BID PRN PRN Reason: Itching / Pruritus Last Admin: 07/20/17 17:46 Dose: 1 applic Doxycycline Hyclate 100 mg/ (Sodium Chloride) 100 mls @ 100 mls/hr IVPB Q12H [facility] Last Admin: 07/21/17 02:45 Dose: 100 mls/hr Insulin Human Regular (Novolin R) 0 unit SC ACHS [facility] PRN Reason: Protocol Last Admin: 07/21/17 08:29 Dose: 1 unit Isosorbide Mononitrate (Imdur) 60 mg PO DAILY [facility] Last Admin: 07/21/17 11:03 Dose: 60 mg Lactic Acid (Lac-Hydrin 12% Lotion (225 G)) 0 gm TOP DAILY [facility] Last Admin: 07/20/17 10:08 Dose: 1 applic Losartan Potassium (Cozaar) 100 mg PO DAILY [facility] Last Admin: 07/21/17 11:03 Dose: 100 mg Metoprolol Succinate (Toprol Xl) 100 mg PO DAILY [facility] Last Admin: 07/21/17 11:03 Dose: 100 mg Rivaroxaban (Xarelto) 20 mg PO DAILY [facility] Last Admin: 07/21/17 11:07 Dose: 20 mg Rosuvastatin Calcium (Crestor) 5 mg PO [facility] Saccharomyces Boulardii (Florastor) 250 mg PO BID [facility] Last Admin: 07/21/17 11:03 Dose: 250 mg Sertraline HCl (Zoloft) 25 mg PO DAILY [facility] Last Admin: 07/21/17 11:06 Dose: 25 mg Sodium Hypochlorite (Dakins Solution 0.25%) 0 ml TOP BID [facility] Last Admin: 07/21/17 11:04 Dose: 1 % Trazodone HCl (Desyrel) 25 mg PO [facility] Last Admin: 07/20/17 21:50 Dose: 25 mg Physical Exam - Constitutional Appears: Non-toxic, Chronically Ill - Head Exam Head Exam: NORMOCEPHALIC - Eye Exam Eye Exam: PERRL. absent: Scleral icterus - ENT Exam ENT Exam: Mucous Membranes Dry, Normal External Ear Exam - Neck Exam Neck exam: Negative for: Lymphadenopathy - Respiratory Exam Respiratory Exam: Decreased Breath Sounds, Clear to Auscultation Bilateral - Cardiovascular Exam Cardiovascular Exam: REGULAR RHYTHM, +S1, +S2 - GI/Abdominal Exam GI & Abdominal Exam: Diminished Bowel Sounds, Soft. absent: Tenderness - Rectal Exam Rectal Exam: Deferred - Exam Exam: NORMAL INSPECTION - Extremities Exam Extremities exam: Positive for: pedal edema, tenderness. Negative for: calf tenderness, pedal pulses present Additional comments: bilat ankle ulcers, stasis changess to skin - Back Exam Back exam: absent: CVA tenderness (L), CVA tenderness (R) - Neurological Exam Neurological exam: Alert, CN II-XII Intact, Oriented x3 - Psychiatric Exam Psychiatric exam: Normal Mood - Skin Skin Exam: Dry, Intact Results - Vital Signs Recent Vital Signs: Last Vital Signs Temp 97.0 F L 07/21/17 07:58 Pulse 80 07/21/17 07:58 Resp 20 07/21/17 07:58 BP 159/90 H 07/21/17 11:02 Pulse Ox 99 07/21/17 07:58 - Labs Result Diagrams: 07/21/17 07:14 07/21/17 07:14 Labs: Laboratory Results - last 24 hr 07/20/17 07/20/17 07/21/17 16:45 20:54 01:40 WBC RBC Hgb Hct MCV MCH MCHC RDW Plt Count MPV Neut % (Auto) Lymph % (Auto) Tillman % (Auto) Eos % (Auto) Baso % (Auto) Neut # Lymph # Tillman # Eos # Baso # Sodium Potassium Chloride Carbon Dioxide Anion Gap BUN Creatinine Est GFR ( Amer) Est GFR (Non-Af Amer) POC Glucose (mg/dL) 170 H 186 H 155 H Random Glucose Calcium Phosphorus Magnesium Total Bilirubin AST ALT Alkaline Phosphatase Total Protein Albumin Globulin Albumin/Globulin Ratio 07/21/17 07/21/17 07/21/17 07:14 07:14 07:49 WBC 3.7 L RBC 3.45 L Hgb 9.5 L Hct 29.9 L MCV 86.5 MCH 27.4 MCHC 31.7 L RDW 18.2 H Plt Count 174 MPV 9.1 Neut % (Auto) 58.6 Lymph % (Auto) 20.8 Tillman % (Auto) 16.7 H Eos % (Auto) 2.7 Baso % (Auto) 1.2 Neut # 2.2 Lymph # 0.8 L Tillman # 0.6 Eos # 0.1 Baso # 0.0 Sodium 138 Potassium 4.5 Chloride 105 Carbon Dioxide 24 Anion Gap 13 BUN 32 H Creatinine 0.8 Est GFR ( Amer) > 60 Est GFR (Non-Af Amer) > 60 POC Glucose (mg/dL) 151 H Random Glucose 126 H Calcium 8.3 L Phosphorus 3.2 Magnesium 1.8 Total Bilirubin 0.9 AST 38 H ALT 40 Alkaline Phosphatase 188 H Total Protein 6.9 Albumin 3.1 L Globulin 3.8 Albumin/Globulin Ratio 0.8 L Assessment & Plan (1) Atrial fibrillation Status: Acute (2) CHF (congestive heart failure) Status: Acute (3) Diabetes Status: Acute (4) Skin ulcer Status: Acute (5) Anemia Status: Active (6) Diabetes mellitus type 2 Status: Active (7) Dyslipidemia Status: Active (8) Cellulitis Status: Acute - Assessment and Plan (Free Text) Assessment: MDRO from wounds cont rx vascular eval wound care
--- NOTE | 2017-07-21 12:26 | CON ---
DATE: 07/21/2017 REQUESTING PHYSICIAN: Isacc Esquivel MD This is an 87-year-old black female, well known to me for prior treatment of bilateral ankle ulcers. These ulcers had healed nicely in the past with Unna boot compression therapy. However, over the last few months, the patient has neglected her diuresis and as a consequence has retained significant bilateral edema about the thighs in the lower legs, which had failed to heal these ulcers. She is seen today at bedside, alert and oriented x3. The ulcers are clean and non-malodorous. We will hold off Unna boot compression therapy at this time pending significantly more diuresis. Once that is completed, we will institute the bilateral Unna boot compression therapy. No surgical intervention. Local wound management with peroxide irrigation and dry sterile dressings as needed. Nicholas Hathaway DPM
[2017-07-21] MEDS ORDERED: Tigecycline 100 MG in Dextrose 5% In Water 100 ML IVPB ONE (12:30)
[2017-07-21] MEDS: Ammonium Lactate 12% Lotion (225 g) TOP SCH (13:45)
[2017-07-21] MEDS: Bacitracin Ointment 30 GM TUBE TOP SCH (13:59)
[2017-07-21] MEDS: traZODone 25 mg Tab PO SCH (21:38)
[2017-07-22 07:40] LABS: BASO % 0.8 % (0.0-2.0); EOS # 0.1 K/uL (0.0-0.7); EOS % 1.6 % (0.0-4.0); HEMATOCRIT 31.1 % (34.0-47.0); LYMPH # 0.9 K/uL (1.0-4.3); LYMPH % 23.7 % (20.0-40.0); MEAN CORPUSCULAR HEMOGLOBIN 27.5 pg (27.0-31.0); MEAN CORPUSCULAR HGB CONC 31.7 g/dL (33.0-37.0); MEAN PLATELET VOLUME 8.7 fL (7.2-11.7); MONO # 0.5 K/uL (0.0-0.8); MONO % 12.4 % (0.0-10.0); NRBC % 0.3 % (0.0-2.0); RED CELL DISTRIBUTION WIDTH 18.3 % (11.5-14.5); WHITE BLOOD COUNT 3.9 K/uL (4.8-10.8)
[2017-07-22] MEDS: (Novolin R) Insulin Human Regular 100 units/ml vial SC SCH ×4 (08:59→22:03)
[2017-07-22] MEDS: Ammonium Lactate 12% Lotion (225 g) TOP SCH (10:00)
[2017-07-22] MEDS: Dakin's Topical 0.25%-Half Strength (480 ml) TOP SCH ×2 (10:00→17:52)
[2017-07-22] MEDS: Bacitracin Ointment 30 GM TUBE TOP SCH (10:00)
--- NOTE | 2017-07-22 10:03 | CP.PCM.PN ---
Subjective - Date & Time of Evaluation Date of Evaluation: 07/22/17 Time of Evaluation: 07:15 - Subjective Subjective: Vascular Surgery Pt S&E, NAEO. No complaints at this time. Denies pain at this time. Awaiting CTA Objective - Vital Signs/Intake and Output Vital Signs (last 24 hours): Temp Pulse Resp BP Pulse Ox 97.6 F 68 20 143/85 99 07/22/17 00:45 07/22/17 00:45 07/22/17 00:45 07/22/17 00:45 07/22/17 00:45 Intake and Output: 07/22/17 07/22/17 06:59 18:59 Intake Total 640 Balance 640 - Medications Medications: Current Medications Aspirin (Aspirin Chewable) 81 mg PO DAILY [facility] Last Admin: 07/21/17 11:03 Dose: 81 mg Bacitracin (Bacitracin) 30 gm TOP DAILY [facility] Last Admin: 07/21/17 13:59 Dose: Not Given Dextrose (Dextrose 50% Inj) 0 ml IV STAT PRN; Protocol PRN Reason: Hypoglycemia Protocol Dextrose (Glutose 15) 0 gm PO ONCE PRN; Protocol PRN Reason: Hypoglycemia Protocol Famotidine (Pepcid) 20 mg PO BID [facility] Last Admin: 07/21/17 18:17 Dose: 20 mg Furosemide (Lasix) 40 mg IVP DAILY [facility] Last Admin: 07/21/17 11:02 Dose: 40 mg Glucagon (Glucagen Diagnostic Kit) 0 mg IM STAT PRN; Protocol PRN Reason: Hypoglycemia Protocol Hydrocortisone (Cortizone 1% Cream) 0 gm EXT BID PRN PRN Reason: Itching / Pruritus Last Admin: 07/20/17 17:46 Dose: 1 applic Tigecycline 50 mg/ Sodium (Chloride) 50 mls @ 100 mls/hr IVPB Q12H [facility] Last Admin: 07/21/17 23:57 Dose: 100 mls/hr Insulin Human Regular (Novolin R) 0 unit SC ACHS [facility] PRN Reason: Protocol Last Admin: 07/22/17 08:59 Dose: Not Given Isosorbide Mononitrate (Imdur) 60 mg PO DAILY [facility] Last Admin: 07/21/17 11:03 Dose: 60 mg Lactic Acid (Lac-Hydrin 12% Lotion (225 G)) 0 gm TOP DAILY [facility] Last Admin: 07/21/17 13:45 Dose: 1 applic Losartan Potassium (Cozaar) 100 mg PO DAILY [facility] Last Admin: 07/21/17 11:03 Dose: 100 mg Metoprolol Succinate (Toprol Xl) 100 mg PO DAILY [facility] Last Admin: 07/21/17 11:03 Dose: 100 mg Rivaroxaban (Xarelto) 20 mg PO DAILY [facility] Last Admin: 07/21/17 11:07 Dose: 20 mg Rosuvastatin Calcium (Crestor) 5 mg PO HS [facility] Last Admin: 07/21/17 21:38 Dose: 5 mg Saccharomyces Boulardii (Florastor) 250 mg PO BID [facility] Last Admin: 07/21/17 18:17 Dose: 250 mg Sertraline HCl (Zoloft) 25 mg PO DAILY [facility] Last Admin: 07/21/17 11:06 Dose: 25 mg Sodium Hypochlorite (Dakins Solution 0.25%) 0 ml TOP BID [facility] Last Admin: 07/21/17 18:18 Dose: 1 % Trazodone HCl (Desyrel) 25 mg PO [facility] Last Admin: 07/21/17 21:38 Dose: 25 mg - Labs Labs: 07/22/17 07:29 07/21/17 07:14 PT 13.3 SECONDS (9.7-12.2) H 07/17/17 22:25 INR 1.2 07/17/17 22:25 APTT 34 SECONDS (21-34) 07/17/17 22:25 - Constitutional Appears: Non-toxic, No Acute Distress - Head Exam Head Exam: ATRAUMATIC, NORMOCEPHALIC - Respiratory Exam Respiratory Exam: NORMAL BREATHING PATTERN. absent: Respiratory Distress - GI/Abdominal Exam GI & Abdominal Exam: Soft. absent: Distended - Extremities Exam Extremities Exam: Pedal Edema (B/L). absent: Calf Tenderness Additional comments: dressing in place B/L - Neurological Exam Neurological Exam: Alert, Awake - Skin Skin Exam: Dry, Warm Assessment and Plan - Assessment and Plan (Free Text) Assessment: 87 F with non-healing bilateral leg ulcers Plan: Dressing changes per podiatry Arterial doppler: poor visualization due to edema Try to get CTA today to evaluate bloodflow D/W Dr. Abida Esquivel PGY4
[2017-07-22] MEDS: Saccharomyces Boulardi 250 mg Cap PO SCH ×2 (10:17→17:50)
[2017-07-22] MEDS: Metoprolol Succinate 100 mg XL Tab PO SCH (10:17)
--- NOTE | 2017-07-22 11:28 | CP.PCM.PN ---
Subjective - Date & Time of Evaluation Date of Evaluation: 07/22/17 Time of Evaluation: 06:00 - Subjective Subjective: awaiting CTA wounds same cont iv rx Objective - Vital Signs/Intake and Output Vital Signs (last 24 hours): Temp Pulse Resp BP Pulse Ox 97.9 F 72 18 143/90 100 07/22/17 10:18 07/22/17 10:18 07/22/17 10:18 07/22/17 10:18 07/22/17 10:18 Intake and Output: 07/22/17 07/22/17 06:59 18:59 Intake Total 640 Balance 640 - Medications Medications: Current Medications Aspirin (Aspirin Chewable) 81 mg PO DAILY [facility] Last Admin: 07/22/17 10:18 Dose: 81 mg Bacitracin (Bacitracin) 30 gm TOP DAILY [facility] Last Admin: 07/21/17 13:59 Dose: Not Given Dextrose (Dextrose 50% Inj) 0 ml IV STAT PRN; Protocol PRN Reason: Hypoglycemia Protocol Dextrose (Glutose 15) 0 gm PO ONCE PRN; Protocol PRN Reason: Hypoglycemia Protocol Famotidine (Pepcid) 20 mg PO BID [facility] Last Admin: 07/22/17 10:23 Dose: 20 mg Furosemide (Lasix) 40 mg IVP DAILY [facility] Last Admin: 07/22/17 10:17 Dose: 40 mg Glucagon (Glucagen Diagnostic Kit) 0 mg IM STAT PRN; Protocol PRN Reason: Hypoglycemia Protocol Hydrocortisone (Cortizone 1% Cream) 0 gm EXT BID PRN PRN Reason: Itching / Pruritus Last Admin: 07/20/17 17:46 Dose: 1 applic Tigecycline 50 mg/ Sodium (Chloride) 50 mls @ 100 mls/hr IVPB Q12H [facility] Last Admin: 07/21/17 23:57 Dose: 100 mls/hr Insulin Human Regular (Novolin R) 0 unit SC ACHS [facility] PRN Reason: Protocol Last Admin: 07/22/17 08:59 Dose: Not Given Isosorbide Mononitrate (Imdur) 60 mg PO DAILY [facility] Last Admin: 07/22/17 10:17 Dose: 60 mg Lactic Acid (Lac-Hydrin 12% Lotion (225 G)) 0 gm TOP DAILY [facility] Last Admin: 07/21/17 13:45 Dose: 1 applic Losartan Potassium (Cozaar) 100 mg PO DAILY [facility] Last Admin: 07/22/17 10:17 Dose: 100 mg Metoprolol Succinate (Toprol Xl) 100 mg PO DAILY [facility] Last Admin: 07/22/17 10:17 Dose: 100 mg Rivaroxaban (Xarelto) 20 mg PO DAILY [facility] Last Admin: 07/22/17 10:29 Dose: 20 mg Rosuvastatin Calcium (Crestor) 5 mg PO HS [facility] Last Admin: 07/21/17 21:38 Dose: 5 mg Saccharomyces Boulardii (Florastor) 250 mg PO BID [facility] Last Admin: 07/22/17 10:17 Dose: 250 mg Sertraline HCl (Zoloft) 25 mg PO DAILY [facility] Last Admin: 07/22/17 10:18 Dose: 25 mg Sodium Hypochlorite (Dakins Solution 0.25%) 0 ml TOP BID [facility] Last Admin: 07/21/17 18:18 Dose: 1 % Trazodone HCl (Desyrel) 25 mg PO HS [facility] Last Admin: 07/21/17 21:38 Dose: 25 mg - Labs Labs: 07/22/17 07:29 07/21/17 07:14 PT 13.3 SECONDS (9.7-12.2) H 07/17/17 22:25 INR 1.2 07/17/17 22:25 APTT 34 SECONDS (21-34) 07/17/17 22:25 - Constitutional Appears: Non-toxic - Head Exam Head Exam: NORMOCEPHALIC - Eye Exam Eye Exam: PERRL - ENT Exam ENT Exam: Mucous Membranes Dry - Neck Exam Neck Exam: absent: Lymphadenopathy - Respiratory Exam Respiratory Exam: Decreased Breath Sounds - Cardiovascular Exam Cardiovascular Exam: REGULAR RHYTHM - GI/Abdominal Exam GI & Abdominal Exam: Distended, Soft - Rectal Exam Rectal Exam: Deferred - Exam Exam: NORMAL INSPECTION Assessment and Plan (1) Atrial fibrillation Status: Acute (2) CHF (congestive heart failure) Status: Acute (3) Diabetes Status: Acute (4) Skin ulcer Status: Acute (5) Anemia Status: Active (6) Diabetes mellitus type 2 Status: Active (7) Dyslipidemia Status: Active (8) Cellulitis Status: Acute
--- NOTE | 2017-07-22 12:09 | VASCLAB ---
STUDY DESCRIPTION: HISTORY: PAIN PRIORS: None. TECHNIQUE: Pulse volume recording waveforms and segmental pressures of bilateral lower extremities at multiple levels were obtained. Ankle Brachial Indices (ABIs) were calculated. Report prepared by JOVANI Adams, RVT RIGHT LOWER EXTREMITY: * Brachial artery: Pressure - 137 mmHg. * High thigh: Pressure - mmHg: Ratio - : PVR waveform - Pulsatile * Low thigh: Pressure - mmHg: Ratio - PVR waveform: Pulsatile * Calf: Pressure - mmHg: Ratio - PVR waveform: Pulsatile * Posterior tibial Artery: Pressure - mmHg: Ratio - PVR waveform: Pulsatile * Dorsalis pedis Artery: Pressure - 158 mmHg: Ratio - 1.13 PVR waveform: Pulsatile * Great toe: Pressure - mmHg: Ratio - PVR waveform: Ankle brachial index (SEB): LEFT LOWER EXTREMITY: * Brachial artery: Pressure - 140 mmHg. * High thigh: Pressure - mmHg: Ratio - : PVR waveform - Pulsatile * Low thigh: Pressure - mmHg: Ratio - PVR waveform: Pulsatile * Calf: Pressure - mmHg: Ratio - PVR waveform: Pulsatile * Posterior tibial Artery: Pressure - mmHg: Ratio - PVR waveform: Pulsatile * Dorsalis pedis Artery: Pressure - 148 mmHg: Ratio - 1.06 PVR waveform: Pulsatile * Great toe: Pressure - mmHg: Ratio - PVR waveform: Ankle brachial index (SEB): OTHER FINDINGS: Right: Left: IMPRESSION: Right: There was no evidence of hemodynamically significant arterial insufficiency in the right lower extremity. Left: There was no evidence of hemodynamically significant arterial insufficiency in the left lower extremity
[2017-07-22 16:41] VITALS: RESP 20
--- NOTE | 2017-07-22 16:54 | CARD ---
APPROVED REPORT EXAM: Two-dimensional and M-mode echocardiogram with Doppler and color Doppler. Other Information Quality : GoodRhythm : INDICATION Atrial Fibrillation Congestive Heart Failure COPD RISK FACTORS Diabetes 2D DIMENSIONS IVSd1.2 (0.7-1.1cm)LVDd4.6 (3.9-5.9cm) PWd1.2 (0.7-1.1cm)LVDs3.6 (2.5-4.0cm) FS (%) 22.3 %LVEF (%)45.1 (>50%) M-Mode DIMENSIONS Left Atrium (MM)4.81 (2.5-4.0cm)Aortic Root3.75 (2.2-3.7cm) Aortic Cusp Exc.1.34 (1.5-2.0cm) Mitral Valve MV E Ilrcjjdu777.2cm/sE/A ratio0.0 TDI E/Lateral E'0.0E/Medial E'0.0 Tricuspid Valve TR Peak [id number]/sTR Peak Gr.[id number] LEFT VENTRICLE The Left Ventricle is mildly dilated. There is mild concentric left ventricular hypertrophy. The systolic function is moderately impaired. There is normal LV segmental wall motion. Transmitral Doppler flow pattern is Grade III- restrictive diastolic dysfunction. Elevate left atrial pressure by Tissue Doppler. RIGHT VENTRICLE The right ventricle is mildly to moderately dilated. Systolic function is moderately reduced. Decrease TAPSE ATRIA The left atrium is moderately dilated. The right atrium is moderately dilated. AORTIC VALVE The aortic valve is mildly calcified but, opens well. There is mild aortic regurgitation. MITRAL VALVE The mitral valve is normal in structure. Mitral regurgitation is mild. TRICUSPID VALVE The tricuspid valve is normal in structure. There is moderate tricuspid regurgitation. Right ventricular systolic pressure is estimated at 50-60 mmHg. There is moderate-severe pulmonary hypertension. PULMONIC VALVE There is mild pulmonic valvular regurgitation. GREAT VESSELS The aortic root is normal in size. Dilated IVC with poor inspiration collapse is consistent with elevated right atrial pressure. PERICARDIAL EFFUSION There is a trace pericardial effusion. <Conclusion> Dilated cardiac chambers. There is mild concentric left ventricular hypertrophy. The systolic function is moderately impaired. Ejection fraction - 40 -45% Moderate diastolic dysfunction. Transmitral Doppler flow pattern is Grade III- restrictive diastolic dysfunction. Elevate left atrial pressure by Tissue Doppler. Right ventricular systolic function is moderately reduced. Decrease TAPSE There is mild mitral, aortic and pulmonic regurgitation. There is moderate tricuspid regurgitation. Right ventricular systolic pressure is estimated at 50-60 mmHg compatible with moderate-severe pulmonary hypertension. There is a trace pericardial effusion.
--- NOTE | 2017-07-22 17:36 | CP.PCM.PN ---
Subjective - Date & Time of Evaluation Date of Evaluation: 07/22/17 Time of Evaluation: 07:40 - Subjective Subjective: Progress note for Dr. Avendaño Patient seen and examined at bedside this morning. Patient agreed to get an echocardiogram today. Patient had difficulty taking medications because she was worried about the side effects. Patient denies pain with her legs, swelling, drainage. Patient denies chest pain, shortness of breath. Patient admits to reproducible pain on left arm and anterior chest, but does not have pain without palpation. Objective - Vital Signs/Intake and Output Vital Signs (last 24 hours): Temp Pulse Resp BP Pulse Ox 97.4 F L 62 20 155/95 H 97 07/22/17 16:00 07/22/17 16:00 07/22/17 16:00 07/22/17 16:00 07/22/17 16:00 Intake and Output: 07/22/17 07/22/17 06:59 18:59 Intake Total 640 Balance 640 - Medications Medications: Current Medications Aspirin (Aspirin Chewable) 81 mg PO DAILY [facility] Last Admin: 07/22/17 10:18 Dose: 81 mg Bacitracin (Bacitracin) 30 gm TOP DAILY [facility] Last Admin: 07/22/17 10:00 Dose: Not Given Dextrose (Dextrose 50% Inj) 0 ml IV STAT PRN; Protocol PRN Reason: Hypoglycemia Protocol Dextrose (Glutose 15) 0 gm PO ONCE PRN; Protocol PRN Reason: Hypoglycemia Protocol Famotidine (Pepcid) 20 mg PO BID [facility] Last Admin: 07/22/17 10:23 Dose: 20 mg Furosemide (Lasix) 40 mg IVP DAILY [facility] Last Admin: 07/22/17 10:17 Dose: 40 mg Glucagon (Glucagen Diagnostic Kit) 0 mg IM STAT PRN; Protocol PRN Reason: Hypoglycemia Protocol Hydrocortisone (Cortizone 1% Cream) 0 gm EXT BID PRN PRN Reason: Itching / Pruritus Last Admin: 07/20/17 17:46 Dose: 1 applic Tigecycline 50 mg/ Sodium (Chloride) 50 mls @ 100 mls/hr IVPB Q12H [facility] Last Admin: 07/22/17 14:57 Dose: 100 mls/hr Insulin Human Regular (Novolin R) 0 unit SC ACHS [facility]ANT PRN Reason: Protocol Last Admin: 07/22/17 11:30 Dose: Not Given Isosorbide Mononitrate (Imdur) 60 mg PO DAILY [facility] Last Admin: 07/22/17 10:17 Dose: 60 mg Lactic Acid (Lac-Hydrin 12% Lotion (225 G)) 0 gm TOP DAILY [facility] Last Admin: 07/22/17 10:00 Dose: 1 applic Losartan Potassium (Cozaar) 100 mg PO DAILY [facility] Last Admin: 07/22/17 10:17 Dose: 100 mg Metoprolol Succinate (Toprol Xl) 100 mg PO DAILY [facility] Last Admin: 07/22/17 10:17 Dose: 100 mg Rivaroxaban (Xarelto) 20 mg PO DAILY [facility] Last Admin: 07/22/17 10:29 Dose: 20 mg Rosuvastatin Calcium (Crestor) 5 mg PO HS [facility] Last Admin: 07/21/17 21:38 Dose: 5 mg Saccharomyces Boulardii (Florastor) 250 mg PO BID [facility] Last Admin: 07/22/17 10:17 Dose: 250 mg Sertraline HCl (Zoloft) 25 mg PO DAILY [facility] Last Admin: 07/22/17 10:18 Dose: 25 mg Sodium Hypochlorite (Dakins Solution 0.25%) 0 ml TOP BID [facility] Last Admin: 07/22/17 10:00 Dose: 1 % Trazodone HCl (Desyrel) 25 mg PO HS [facility] Last Admin: 07/21/17 21:38 Dose: 25 mg - Labs Labs: 07/22/17 07:29 07/21/17 07:14 PT 13.3 SECONDS (9.7-12.2) H 07/17/17 22:25 INR 1.2 07/17/17 22:25 APTT 34 SECONDS (21-34) 07/17/17 22:25 - Head Exam Head Exam: NORMAL INSPECTION - Eye Exam Eye Exam: EOMI, Normal appearance - ENT Exam ENT Exam: Mucous Membranes Moist - Neck Exam Neck Exam: Full ROM - Respiratory Exam Respiratory Exam: NORMAL BREATHING PATTERN. absent: Accessory Muscle Use - Cardiovascular Exam Cardiovascular Exam: +S1, +S2, Murmur. absent: Bradycardia, Tachycardia Additional comments: Patient admits to reproducible pain on left arm and anterior chest, but does nto have pain without palpation. - GI/Abdominal Exam GI & Abdominal Exam: Soft. absent: Tenderness - Extremities Exam Extremities Exam: Full ROM. absent: Pedal Edema - Back Exam Back Exam: Full ROM - Neurological Exam Neurological Exam: Alert, Awake - Psychiatric Exam Psychiatric exam: Normal Affect, Normal Mood - Skin Additional comments: dressings in place for non-healing ulcers. c/d/i bilaterally Right ankle ulcer:3.1 cm x 3.1 cm, 0.1 cm in depth, stage 3 healing ulcer Left ankle ulcer: 3 x 2.1 cm, 0.1 cm depth, stage 3 healing healing ulcer Posterior right calf 2 x 2 x 1 cm, stage 3 healing ulcer Assessment and Plan - Assessment and Plan (Free Text) Assessment: Assessment and Plan - Assessment and Plan (Free Text) Assessment: Chronic Non-healing skin ulcers Admitted to med/surg Pt with chronic PVD, Diabetes, chronic pedal edema Dr Tai, Vascular Surgeon, consulted Dr. Mack, Podiatry, consulted: - Wounds cleansed with hydrogen peroxide and dressed with DSD - Q12 dressing changes - peroxide cleanse, Dakin's soaked wet to dry 4x4 gauze, kerlix Compression stockings Nursing communication to keep legs elevated Continued home Bacitracin, Lac-Hydrin 12% solution Gram Stain/Wound Culture Right Leg 07/18: No polymorphonuclear WBCs observed, No organisms seen Gram Stain/Wound Culture Other Source 07/18: Few polymorphonuclear WBCs, Few gram negative rods Meds: Lasix 40mg IV daily Doxy 100mg IV Q12H Floraster 250mg PO Daily Imagin/16 CXR: prominent diffuse increased interstitial lung markings suggesting moderate venous congestion. consolidative changes at left lung base with small left pleural effusion. scattered nodular densities in upper lung zones with left greater than right 07/18 Lower extremity duplex shows PVD Right: mid to distal femoral, posterior tibial and peroneal veins were not visualized due to severe edema. no evidence of DVT or superficial vein thrombosis of veins. pulsatile venous flow was noted in the major veins. Left: mid to distal femoral, posterior tibial and peroneal veins were not visualized due to severe edema. no evidence of deep or superficial vein thrombosis for veins clearly visualized in left lower extremity. pulsatile flow noted in major veins CHF (diastolic dysfunction) 07/18 CT Angio of ileofem runoff refused by patient, stated she will think about getting scan tomorrow 07/19 07/21 patient continues to state she will consider CTA of ileofemoral runoff. Diastolic CHF history ECHO (03/11/14): LV EF 60%, reversible restrictive diastolic dysfunction - pt refusing follow up ECHO BNP: 2850 (previous admissions 7400, 1880) 07/21 Echo ordered Atrial fibrillation EKG: Afib @ 94 bpm, no acute St/T wave changes Xarelto 20mg PO Daily Metoprolol 50mg PO Daily CHADS-2: score 4 pts (positive criteria: CHF, HTN, >75, Diabetes; 8.5% risk of thromboembolic event) HTN BP elevated at admission HOLD home Norvasc 5mg PO Daily due to peripheral edema Imdur 60mg PO Daily Metoprolol 50mg PO Daily Losartan 100mg PO Daily Hyperlipidemia, no home meds 07/20 lipid panel TG 56 Cholesterol 126 LDL 59 HDL 45 T2DM No DM medications listed on [facility] [place] Hypoglycemia protocol Diabetic education A1C 07/18: 8.3 F/U lipid panel Depression Zoloft 25mg PO Daily Insomnia Trazadone 50mg PO HS Transaminitis, downtrending AST/ALT 38/40 Monitor Diet: Heart healthy diet Prophylaxis Xarelto 20mg PO Daily SCDs contraindicated Pepcid 20mg PO BID Pastoral Care - spiritual support Turn reposition every Q2H Maryan Armstrong PGY1
[2017-07-22 18:09] LABS: ALKALINE PHOSPHATASE 187 U/L (38-126); ALT/SGPT 45 U/L (9-52); AST/SGOT 39 U/L (14-36); BLOOD UREA NITROGEN 36 mg/dL (7-17); CALCIUM 8.5 mg/dl (8.6-10.4); CARBON DIOXIDE 26 mmol/L (22-30); CHLORIDE 102 mmol/L (98-107); GFR AFRICAN-AMERICAN > 60; GLUCOSE,RANDOM 162 mg/dL (65-105); POTASSIUM 4.7 mmol/L (3.6-5.2); SODIUM 138 mmol/L (132-148); TOTAL PROTEIN 7.3 g/dL (6.3-8.3)
[2017-07-22 18:11] LABS: ALB/GLOB RATIO 0.9 (1.0-2.1)
[2017-07-22] MEDS: traZODone 25 mg Tab PO SCH (22:01)
[2017-07-23] MEDS: (Novolin R) Insulin Human Regular 100 units/ml vial SC SCH ×4 (07:39→22:00)
[2017-07-23 07:45] LABS: BASO % 0.9 % (0.0-2.0); EOS # 0.1 K/uL (0.0-0.7); EOS % 1.3 % (0.0-4.0); HEMATOCRIT 32.4 % (34.0-47.0); LYMPH # 1.3 K/uL (1.0-4.3); LYMPH % 30.2 % (20.0-40.0); MEAN CELL VOLUME 86.5 fL (81.0-99.0); MEAN CORPUSCULAR HGB CONC 31.2 g/dL (33.0-37.0); MONO # 0.5 K/uL (0.0-0.8); MONO % 13.2 % (0.0-10.0); NRBC % 0.1 % (0.0-2.0); RED CELL DISTRIBUTION WIDTH 18.5 % (11.5-14.5); WHITE BLOOD COUNT 4.2 K/uL (4.8-10.8)
--- NOTE | 2017-07-23 07:53 | CP.PCM.PN ---
<Maryan Armstrong - Last Filed: 07/23/17 12:40> Subjective - Date & Time of Evaluation Date of Evaluation: 07/23/17 Time of Evaluation: 07:53 - Subjective Subjective: Progress note for Dr. Kirk Patient seen and examined at bedside this morning. Patient states she did not see podiatry yesterday. Resident mentioned to patient that she can request for a nurse to reach out to any resident/doctor if she had questions. Patient denies pain with her legs, swelling, drainage. Patient denies chest pain, shortness of breath. Patient admits to reproducible pain on left arm and anterior chest, but does not have pain without palpation. Objective - Vital Signs/Intake and Output Vital Signs (last 24 hours): Temp Pulse Resp BP Pulse Ox 98.2 F 66 20 159/85 H 99 07/23/17 00:00 07/23/17 00:00 07/23/17 00:00 07/23/17 00:00 07/23/17 00:00 - Medications Medications: Current Medications Aspirin (Aspirin Chewable) 81 mg PO DAILY [facility] Last Admin: 07/22/17 10:18 Dose: 81 mg Bacitracin (Bacitracin) 30 gm TOP DAILY [facility] Last Admin: 07/22/17 10:00 Dose: Not Given Dextrose (Dextrose 50% Inj) 0 ml IV STAT PRN; Protocol PRN Reason: Hypoglycemia Protocol Dextrose (Glutose 15) 0 gm PO ONCE PRN; Protocol PRN Reason: Hypoglycemia Protocol Famotidine (Pepcid) 20 mg PO BID [facility] Last Admin: 07/22/17 17:50 Dose: 20 mg Furosemide (Lasix) 40 mg IVP DAILY [facility] Last Admin: 07/22/17 10:17 Dose: 40 mg Glucagon (Glucagen Diagnostic Kit) 0 mg IM STAT PRN; Protocol PRN Reason: Hypoglycemia Protocol Hydrocortisone (Cortizone 1% Cream) 0 gm EXT BID PRN PRN Reason: Itching / Pruritus Last Admin: 07/20/17 17:46 Dose: 1 applic Tigecycline 50 mg/ Sodium (Chloride) 50 mls @ 100 mls/hr IVPB Q12H [facility] Last Admin: 07/23/17 00:03 Dose: 100 mls/hr Insulin Human Regular (Novolin R) 0 unit SC ACHS [facility] PRN Reason: Protocol Last Admin: 07/23/17 07:39 Dose: Not Given Isosorbide Mononitrate (Imdur) 60 mg PO DAILY [facility] Last Admin: 07/22/17 10:17 Dose: 60 mg Lactic Acid (Lac-Hydrin 12% Lotion (225 G)) 0 gm TOP DAILY [facility] Last Admin: 07/22/17 10:00 Dose: 1 applic Losartan Potassium (Cozaar) 100 mg PO DAILY [facility] Last Admin: 07/22/17 10:17 Dose: 100 mg Metoprolol Succinate (Toprol Xl) 100 mg PO DAILY [facility] Last Admin: 07/22/17 10:17 Dose: 100 mg Rivaroxaban (Xarelto) 20 mg PO DAILY [facility] Last Admin: 07/22/17 10:29 Dose: 20 mg Rosuvastatin Calcium (Crestor) 5 mg PO HS [facility] Last Admin: 07/22/17 22:00 Dose: Not Given Saccharomyces Boulardii (Florastor) 250 mg PO BID [facility] Last Admin: 07/22/17 17:50 Dose: 250 mg Sertraline HCl (Zoloft) 25 mg PO DAILY [facility] Last Admin: 07/22/17 10:18 Dose: 25 mg Sodium Hypochlorite (Dakins Solution 0.25%) 0 ml TOP BID [facility] Last Admin: 07/22/17 17:52 Dose: 0.25 % Trazodone HCl (Desyrel) 25 mg PO HS [facility] Last Admin: 07/22/17 22:01 Dose: Not Given - Labs Labs: 07/23/17 07:22 07/22/17 17:14 PT 13.3 SECONDS (9.7-12.2) H 07/17/17 22:25 INR 1.2 07/17/17 22:25 APTT 34 SECONDS (21-34) 07/17/17 22:25 - Constitutional Appears: Non-toxic - Head Exam Head Exam: NORMAL INSPECTION - Eye Exam Eye Exam: EOMI, Normal appearance - ENT Exam ENT Exam: Mucous Membranes Moist - Neck Exam Neck Exam: Full ROM - Cardiovascular Exam Cardiovascular Exam: REGULAR RHYTHM, +S1, +S2. absent: Bradycardia, Tachycardia - Extremities Exam Additional comments: patient has multiple ulcerations bandaged and rebandaged by podiatry. dressing c /d/i - Neurological Exam Neurological Exam: Awake Assessment and Plan - Assessment and Plan (Free Text) Assessment: Chronic Non-healing skin ulcers Admitted to med/surg Pt with chronic PVD, Diabetes, chronic pedal edema Dr Tai, Vascular Surgeon, consulted Dr. Mack, Podiatry, consulted: - Wounds cleansed with hydrogen peroxide and dressed with DSD - Q12 dressing changes - peroxide cleanse, Dakin's soaked wet to dry 4x4 gauze, kerlix Compression stockings Nursing communication to keep legs elevated Continued home Bacitracin, Lac-Hydrin 12% solution Gram Stain/Wound Culture Right Leg 07/18: No polymorphonuclear WBCs observed, No organisms seen Gram Stain/Wound Culture Other Source 07/18: Few polymorphonuclear WBCs, Few gram negative rods 07/18 cultures resulted: proteus mirabilis, beta hemolytic strep group b, pseudomonas aeruginosa per Dr. Grimaldo, patient is to stay for a few days on tiglecycline unless we can send her to TCU in [place] Meds: Lasix 40mg IV daily Doxy 100mg IV Q12H Floraster 250mg PO Daily Imagin/16 CXR: prominent diffuse increased interstitial lung markings suggesting moderate venous congestion. consolidative changes at left lung base with small left pleural effusion. scattered nodular densities in upper lung zones with left greater than right 07/18 Lower extremity duplex shows PVD Right: mid to distal femoral, posterior tibial and peroneal veins were not visualized due to severe edema. no evidence of DVT or superficial vein thrombosis of veins. pulsatile venous flow was noted in the major veins. Left: mid to distal femoral, posterior tibial and peroneal veins were not visualized due to severe edema. no evidence of deep or superficial vein thrombosis for veins clearly visualized in left lower extremity. pulsatile flow noted in major veins CHF (diastolic dysfunction) 07/18 CT Angio of ileofem runoff refused by patient, stated she will think about getting scan tomorrow 07/19 07/21 patient continues to state she will consider CTA of ileofemoral runoff. Diastolic CHF history ECHO (03/11/14): LV EF 60%, reversible restrictive diastolic dysfunction - pt refusing follow up ECHO BNP: 2850 (previous admissions 7400, 1880) 07/21 Echo ordered 07/22 Echo: EF 45.1%, mild concentric left ventricular hypertrophy. moderate diastolic dysfunction. grade III restrictive diastolic dysfunction, right ventricular systolic function is moderately reduced. Atrial fibrillation EKG: Afib @ 94 bpm, no acute St/T wave changes Xarelto 20mg PO Daily Metoprolol 50mg PO Daily CHADS-2: score 4 pts (positive criteria: CHF, HTN, >75, Diabetes; 8.5% risk of thromboembolic event) HTN BP elevated at admission HOLD home Norvasc 5mg PO Daily due to peripheral edema Imdur 60mg PO Daily Metoprolol 50mg PO Daily Losartan 100mg PO Daily Hyperlipidemia, no home meds 07/20 lipid panel TG 56 Cholesterol 126 LDL 59 HDL 45 T2DM No DM medications listed on [facility] med rec Accuchecks FORTUNATO Hypoglycemia protocol Diabetic education A1C 07/18: 8.3 F/U lipid panel Depression Zoloft 25mg PO Daily Insomnia Trazadone 50mg PO HS Transaminitis, downtrending AST/ALT 38/40 Monitor Diet: Heart healthy diet Prophylaxis Xarelto 20mg PO Daily SCDs contraindicated Pepcid 20mg PO BID Pastoral Care - spiritual support Turn reposition every Q2H Maryan Eng PGY1 <Uzma Kirk V - Last Filed: 07/23/17 19:00> Objective - Vital Signs/Intake and Output Vital Signs (last 24 hours): Temp Pulse Resp BP Pulse Ox 98.4 F 97 H 20 174/101 H 97 07/23/17 15:00 07/23/17 16:00 07/23/17 15:00 07/23/17 16:00 07/23/17 15:00 Intake and Output: 07/23/17 07/23/17 06:59 18:59 Intake Total 660 Output Total 0 Balance 660 - Medications Medications: Current Medications Aspirin (Aspirin Chewable) 81 mg PO DAILY [facility] Last Admin: 07/23/17 10:33 Dose: 81 mg Bacitracin (Bacitracin) 30 gm TOP DAILY [facility] Last Admin: 07/23/17 13:38 Dose: 1 gm Dextrose (Dextrose 50% Inj) 0 ml IV STAT PRN; Protocol PRN Reason: Hypoglycemia Protocol Dextrose (Glutose 15) 0 gm PO ONCE PRN; Protocol PRN Reason: Hypoglycemia Protocol Famotidine (Pepcid) 20 mg PO BID [facility] Last Admin: 07/23/17 18:05 Dose: 20 mg Furosemide (Lasix) 40 mg IVP DAILY [facility] Last Admin: 07/23/17 10:39 Dose: 40 mg Glucagon (Glucagen Diagnostic Kit) 0 mg IM STAT PRN; Protocol PRN Reason: Hypoglycemia Protocol Hydralazine HCl (Apresoline) 25 mg PO QID [facility] Hydrocortisone (Cortizone 1% Cream) 0 gm EXT BID PRN PRN Reason: Itching / Pruritus Last Admin: 07/20/17 17:46 Dose: 1 applic Tigecycline 50 mg/ Sodium (Chloride) 50 mls @ 100 mls/hr IVPB Q12H [facility] Last Admin: 07/23/17 11:58 Dose: 100 mls/hr Insulin Human Regular (Novolin R) 0 unit SC ACHS [facility] PRN Reason: Protocol Last Admin: 07/23/17 18:06 Dose: Not Given Isosorbide Mononitrate (Imdur) 60 mg PO DAILY [facility] Last Admin: 07/23/17 10:39 Dose: 60 mg Lactic Acid (Lac-Hydrin 12% Lotion (225 G)) 0 gm TOP DAILY [facility] Last Admin: 07/23/17 10:40 Dose: 1 applic Losartan Potassium (Cozaar) 100 mg PO DAILY [facility] Last Admin: 07/23/17 10:38 Dose: 100 mg Metoprolol Succinate (Toprol Xl) 100 mg PO DAILY [facility] Last Admin: 07/23/17 10:38 Dose: 100 mg Rivaroxaban (Xarelto) 20 mg PO DAILY [facility] Last Admin: 07/23/17 10:39 Dose: 20 mg Rosuvastatin Calcium (Crestor) 5 mg PO HS [facility] Last Admin: 07/22/17 22:00 Dose: Not Given Saccharomyces Boulardii (Florastor) 250 mg PO BID [facility] Last Admin: 07/23/17 17:58 Dose: 250 mg Sertraline HCl (Zoloft) 25 mg PO DAILY [facility] Last Admin: 07/23/17 12:00 Dose: 25 mg Sodium Hypochlorite (Dakins Solution 0.25%) 0 ml TOP BID [facility] Last Admin: 07/23/17 18:10 Dose: 1 % Trazodone HCl (Desyrel) 25 mg PO HS [facility] Last Admin: 07/22/17 22:01 Dose: Not Given - Labs Labs: 07/23/17 07:22 07/23/17 07:22 PT 13.3 SECONDS (9.7-12.2) H 07/17/17 22:25 INR 1.2 07/17/17 22:25 APTT 34 SECONDS (21-34) 07/17/17 22:25 Attending/Attestation - Attestation I have personally seen and examined this patient.: Yes I have fully participated in the care of the patient.: Yes I have reviewed all pertinent clinical information, including history, physical exam and plan: Yes Notes (Text): Patient seen, examined, and case discussed with day-time resident. Patient seen this morning. Discussed results of echocardiogram. patient refuses to listen to results. patient keeps shouting she already knows she has a heart murmur, does not want to be on medications. Patient was seen by podiatry earlier. Patient continues to refuse CT angio recommended by vascular surgery. Patient refuses PICC needed for IV abx. Informed linux systems administrator, Dr Hess, given patient is refusing IV abx, given she has placement ready for discharge. However, per discussion with ID, recommends IV antibiotics for her non-healing wound infections. Patient continues to be in denial that she is a diabetic and she is in denial that she has poor vascular circulation which is evident from a prior US available in the EMR, which are risks factors for developing non-healing ulcers. Patient started on Hydralazine 25mg PO QID for uncontrolled blood pressure. Patient at times is noncooperative. ID has patient on IV Tigecycline. Assessment/Plan 1) Chronic Non-healing skin ulcers * Admit to med/surg * Pt with chronic PVD, Diabetes, chronic pedal edema * Podiatry, Dr. Mack on consult * Wound cultures obtained x3-->Follow-up * Wounds cleansed with hydrogen peroxide and dressed with DSD * Q12 dressing changes - peroxide cleanse, Dakin's soaked wet to dry 4x4 gauze , kerlix * Per medicine, Lasix 40mg IV daily * Continue IV abx per medicine - Doxycycline 100mg IV Q12H (patient is NOT on doxcycline current) * Patient to be admitted to med/surg * Podiatry will continue to follow patient while in house * Vascular surgery, Dr. Tai on consult * Patient refused CT angio of ileofemor runoff and continues to refuse daily * Infectious Disease, Dr Grimaldo * Tigecycline 50mg IV Q12h (active since 07/22/17) * Wound Cultures * 1st Culture: 07/18 Leg Right Morg Morganii Ss Morganii; Beta Hemolytic Strep Group B * 2nd Culture: 07/18: Proteus Mirabilis, Corynebacterium Species, Gram Negative Alexander * 3rd Culture: 07/18 Proteus Mirabilis, Beta hemolytic Strep Group B, Gram Negative Alexander * Compression stockings * Nursing communication to keep legs elevated * Continued home Bacitracin, Lac-Hydrin 12% solution, * Lasix 40mg IV daily * Prior 07/10/16: no evidence of deep/superficial vein thrombosis of the right lower extremity w excellent venous flow. Normal venous flow noted in the left common femoral vein 2) History of CHF (diastolic dysfunction) * Echocardiogram (07/22/17): dilated cardiac chambers, mild concentric LVH, systolic function is moderately impaired. EF: 40-45% moderate diastolic dysfunction. Elevated left atrial pressure. Grade III restrictive diastolic dysfunction. RV systolic function is moderately reduced. Moderate tricupsid regurgitation. Trace pericardial effusion. * Patient actively refuses follow up ECHO * CXR: Cardiomegaly, questionable small left effusion (wetread, f/u left effusion) * BNP: 2850 (previous admissions 7400, 1880) * Lasix 40mg IV daily * Cozaar 100mg PO daily * start Aspirin 81mg PO daily * start Crestor 5mg PO qHS * Increase Toprol XL 100mg PO daily * Monitor daily weights * intake and outputs 3) History of Atrial fibrillation * EKG: Afib @ 94 bpm, no acute St/T wave changes * Xarelto 20mg PO Daily * Toprol XL 100mg PO daily * CHADS-2: score 4 pts (positive criteria: CHF, HTN, >75, Diabetes; 8.5% risk of thromboembolic event) 4) History of HTN * uncontrolled * Imdur 60mg PO Daily * increased Toprol XL 100mg PO daily * Cozaar 100mg PO daily * start Hydralazine 25mg PO QID * Monitor 5) History of Hyperlipidemia * No meds listed on chart * Lipid panel: T, Chol: 126, LDL; 59, HDL: 45 * Crestor 5mg POqHS 6) Type two DM * patient denies she has any history of diabetes; patient reports this is the first time she is being told she had diabetes; attempted to explain to the patient regarding implications of diabetes but she does not want to listen * No DM medications listed on [facility] med rec * [id number]: 8.3 * Changed diet to heart healthy, diabetic,1500 ML diet * Lipid panel: T, Chol: 126, LDL; 59, HDL: 45 * Accuchecks QAC and HS * Low dose RISS * Hypoglycemia protocol * Petroleum Sampler referral * certified diabetes educator referral 7) History of Depression * Zoloft 25mg PO Daily 8) Insomnia * Trazadone 25mg PO HS 9) Transaminitis * AST/ALT 42/55 * Monitor LFTS * Crestor 5mg POqHS * Order Hepatitis panel 10) Anemia * order for iron studies, ferritin, reticulocyte count, b12, folate, haptoglobin , occult blood * likely chronic disease; based on pattern in the EMR 11) Prophylaxis * Xarelto 20mg PO Daily * SCDs contraindicated * Pepcid 20mg PO BID * pastoral care consult * Turn Q2 HR prevent sacral decubitus * PT eval: MATT Disposition: * f/u ID to see if available IV abx and/or needs PICC line * Patient continues to refuse CT scan and refused PICC line. Informed Hospital linux systems administrator he is aware. Given ID has recommended for IV abx for nonhealing leg wounds. * Blood pressure is uncontrolled * Patient has placement secure; however treatment needs to be decided.
[2017-07-23 07:54] LABS: ALKALINE PHOSPHATASE 190 U/L (38-126); ALT/SGPT 42 U/L (9-52); AST/SGOT 35 U/L (14-36); BILIRUBIN,TOTAL 0.7 mg/dL (0.2-1.3); BLOOD UREA NITROGEN 37 mg/dL (7-17); CALCIUM 8.5 mg/dl (8.6-10.4); CARBON DIOXIDE 24 mmol/L (22-30); CHLORIDE 105 mmol/L (98-107); GFR AFRICAN-AMERICAN > 60; GLUCOSE,RANDOM 99 mg/dL (65-105); POTASSIUM 4.5 mmol/L (3.6-5.2); SODIUM 140 mmol/L (132-148); TOTAL PROTEIN 8.3 g/dL (6.3-8.3)
[2017-07-23 08:25] LABS: ALB/GLOB RATIO 0.7 (1.0-2.1)
[2017-07-23] MEDS: Metoprolol Succinate 100 mg XL Tab PO SCH (10:38)
[2017-07-23] MEDS: Saccharomyces Boulardi 250 mg Cap PO SCH ×2 (10:38→17:58)
[2017-07-23] MEDS: Ammonium Lactate 12% Lotion (225 g) TOP SCH (10:40)
--- NOTE | 2017-07-23 12:30 | CP.PCM.PN ---
Subjective - Date & Time of Evaluation Date of Evaluation: 07/23/17 Time of Evaluation: 11:20 - Subjective Subjective: Podiatry progress Note- 87 year old female seen at bedside this AM for f/u of ulcerations to bilateral lower extremities. Reports sensitivity to wound R leg, denies any pain or discomfort the LLE. Has been working with physical therapy. Elliss f/n/v/c/sob at this time. Offers no other pedal complaints/ Objective - Vital Signs/Intake and Output Vital Signs (last 24 hours): Temp Pulse Resp BP Pulse Ox 97.6 F 69 20 159/97 H 96 07/23/17 08:05 07/23/17 08:05 07/23/17 08:05 07/23/17 10:39 07/23/17 08:05 - Medications Medications: Current Medications Aspirin (Aspirin Chewable) 81 mg PO DAILY [facility] Last Admin: 07/23/17 10:33 Dose: 81 mg Bacitracin (Bacitracin) 30 gm TOP DAILY [facility] Last Admin: 07/22/17 10:00 Dose: Not Given Dextrose (Dextrose 50% Inj) 0 ml IV STAT PRN; Protocol PRN Reason: Hypoglycemia Protocol Dextrose (Glutose 15) 0 gm PO ONCE PRN; Protocol PRN Reason: Hypoglycemia Protocol Famotidine (Pepcid) 20 mg PO BID [facility] Last Admin: 07/23/17 10:39 Dose: 20 mg Furosemide (Lasix) 40 mg IVP DAILY [facility] Last Admin: 07/23/17 10:39 Dose: 40 mg Glucagon (Glucagen Diagnostic Kit) 0 mg IM STAT PRN; Protocol PRN Reason: Hypoglycemia Protocol Hydrocortisone (Cortizone 1% Cream) 0 gm EXT BID PRN PRN Reason: Itching / Pruritus Last Admin: 07/20/17 17:46 Dose: 1 applic Tigecycline 50 mg/ Sodium (Chloride) 50 mls @ 100 mls/hr IVPB Q12H [facility] Last Admin: 07/23/17 11:58 Dose: 100 mls/hr Insulin Human Regular (Novolin R) 0 unit SC ACHS [facility] PRN Reason: Protocol Last Admin: 07/23/17 12:01 Dose: Not Given Isosorbide Mononitrate (Imdur) 60 mg PO DAILY [facility] Last Admin: 07/23/17 10:39 Dose: 60 mg Lactic Acid (Lac-Hydrin 12% Lotion (225 G)) 0 gm TOP DAILY [facility] Last Admin: 07/23/17 10:40 Dose: 1 applic Losartan Potassium (Cozaar) 100 mg PO DAILY [facility] Last Admin: 07/23/17 10:38 Dose: 100 mg Metoprolol Succinate (Toprol Xl) 100 mg PO DAILY [facility] Last Admin: 07/23/17 10:38 Dose: 100 mg Rivaroxaban (Xarelto) 20 mg PO DAILY [facility] Last Admin: 07/23/17 10:39 Dose: 20 mg Rosuvastatin Calcium (Crestor) 5 mg PO HS [facility] Last Admin: 07/22/17 22:00 Dose: Not Given Saccharomyces Boulardii (Florastor) 250 mg PO BID [facility] Last Admin: 07/23/17 10:38 Dose: 250 mg Sertraline HCl (Zoloft) 25 mg PO DAILY [facility] Last Admin: 07/23/17 12:00 Dose: 25 mg Sodium Hypochlorite (Dakins Solution 0.25%) 0 ml TOP BID [facility] Last Admin: 07/22/17 17:52 Dose: 0.25 % Trazodone HCl (Desyrel) 25 mg PO HS [facility] Last Admin: 07/22/17 22:01 Dose: Not Given - Labs Labs: 07/23/17 07:22 07/23/17 07:22 PT 13.3 SECONDS (9.7-12.2) H 07/17/17 22:25 INR 1.2 07/17/17 22:25 APTT 34 SECONDS (21-34) 07/17/17 22:25 - Constitutional Appears: Non-toxic, No Acute Distress - Extremities Exam Additional comments: Bilateral LE physical exam: VASC: DP pulses weakly palpable 1/4 b/l. PT pulses non-palpable b/l. Temperature gradient cool to cool b/l. CFT <3 seconds to digits x5 b/l. No increase in warmth noted to ulcerations x3. +1 pitting edema noted to bilateral lower extremity. NEURO: Gross sensation diminished b/l. DERM: Ulceration #1 noted to the medial aspect of left ankle measuring approximately 2.1 x 1.9 x 0.2 cm - noted to have granular base. Ulceration #2 noted to the medial aspect of right ankle measuring approximately 4.0 x 2.7 x 0.3 cm - noted to have a mixed fibrogranular base Ulceration #3 noted to the posterior aspect of lower 1/3 of right leg measuring approximately 2.6 x 2.2 x 0.1 cm - noted to have a gtanular base. All ulcers have no purulence, no drainage, no malodor, no erythema, no undermining, no tunneling. ORTHO: Tenderness to palpation to ulceration at posterior right leg. No tenderness to palpation ulcerations to bilateral medial ankles. Muscle strength 5/5 for all dorsiflexors, plantarflexors, inverters, and everters. Ankle joint ROM decreased b/l. 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 Martinez Chart, labs and vitals reviewed, afebrile, no leukocytosis Wounds cleansed with hydrogen peroxide and dressed with Dakin's soaked wet to dry 4x4 gauze and kerlix. Continue Q12 dressing changes - peroxide cleanse, Continue IV abx per medicine - Doxycycline 100mg IV Q12H stable per podiatry, will follow.
[2017-07-23] MEDS: Bacitracin Ointment 30 GM TUBE TOP SCH (13:38)
--- NOTE | 2017-07-23 14:55 | CP.PCM.PN ---
Subjective - Date & Time of Evaluation Date of Evaluation: 07/23/17 Time of Evaluation: 09:00 - Subjective Subjective: IV rx in progress ? allergy to ertapenam - unclear On iv tygacil CTA on hold Objective - Vital Signs/Intake and Output Vital Signs (last 24 hours): Temp Pulse Resp BP Pulse Ox 97.6 F 69 20 159/97 H 96 07/23/17 08:05 07/23/17 08:05 07/23/17 08:05 07/23/17 10:39 07/23/17 08:05 Intake and Output: 07/23/17 07/23/17 06:59 18:59 Intake Total 660 Output Total 0 Balance 660 - Medications Medications: Current Medications Aspirin (Aspirin Chewable) 81 mg PO DAILY [facility] Last Admin: 07/23/17 10:33 Dose: 81 mg Bacitracin (Bacitracin) 30 gm TOP DAILY [facility] Last Admin: 07/23/17 13:38 Dose: 1 gm Dextrose (Dextrose 50% Inj) 0 ml IV STAT PRN; Protocol PRN Reason: Hypoglycemia Protocol Dextrose (Glutose 15) 0 gm PO ONCE PRN; Protocol PRN Reason: Hypoglycemia Protocol Famotidine (Pepcid) 20 mg PO BID [facility] Last Admin: 07/23/17 10:39 Dose: 20 mg Furosemide (Lasix) 40 mg IVP DAILY [facility] Last Admin: 07/23/17 10:39 Dose: 40 mg Glucagon (Glucagen Diagnostic Kit) 0 mg IM STAT PRN; Protocol PRN Reason: Hypoglycemia Protocol Hydrocortisone (Cortizone 1% Cream) 0 gm EXT BID PRN PRN Reason: Itching / Pruritus Last Admin: 07/20/17 17:46 Dose: 1 applic Tigecycline 50 mg/ Sodium (Chloride) 50 mls @ 100 mls/hr IVPB Q12H [facility] Last Admin: 07/23/17 11:58 Dose: 100 mls/hr Insulin Human Regular (Novolin R) 0 unit SC ACHS [facility] PRN Reason: Protocol Last Admin: 07/23/17 12:01 Dose: Not Given Isosorbide Mononitrate (Imdur) 60 mg PO DAILY [facility] Last Admin: 07/23/17 10:39 Dose: 60 mg Lactic Acid (Lac-Hydrin 12% Lotion (225 G)) 0 gm TOP DAILY [facility] Last Admin: 11/22/17 10:40 Dose: 1 applic Losartan Potassium (Cozaar) 100 mg PO DAILY [facility] Last Admin: 07/23/17 10:38 Dose: 100 mg Metoprolol Succinate (Toprol Xl) 100 mg PO DAILY [facility] Last Admin: 07/23/17 10:38 Dose: 100 mg Rivaroxaban (Xarelto) 20 mg PO DAILY [facility] Last Admin: 07/23/17 10:39 Dose: 20 mg Rosuvastatin Calcium (Crestor) 5 mg PO HS [facility] Last Admin: 07/22/17 22:00 Dose: Not Given Saccharomyces Boulardii (Florastor) 250 mg PO BID [facility] Last Admin: 07/23/17 10:38 Dose: 250 mg Sertraline HCl (Zoloft) 25 mg PO DAILY [facility] Last Admin: 07/23/17 12:00 Dose: 25 mg Sodium Hypochlorite (Dakins Solution 0.25%) 0 ml TOP BID [facility] Last Admin: 07/22/17 17:52 Dose: 0.25 % Trazodone HCl (Desyrel) 25 mg PO [facility] Last Admin: 07/22/17 22:01 Dose: Not Given - Labs Labs: 07/23/17 07:22 07/23/17 07:22 PT 13.3 SECONDS (9.7-12.2) H 07/17/17 22:25 INR 1.2 07/17/17 22:25 APTT 34 SECONDS (21-34) 07/17/17 22:25 - Constitutional Appears: Non-toxic, Chronically Ill - Head Exam Head Exam: NORMOCEPHALIC - Eye Exam Eye Exam: PERRL - ENT Exam ENT Exam: Mucous Membranes Dry - Neck Exam Neck Exam: absent: Lymphadenopathy - Respiratory Exam Respiratory Exam: Decreased Breath Sounds - Cardiovascular Exam Cardiovascular Exam: REGULAR RHYTHM - GI/Abdominal Exam GI & Abdominal Exam: Distended, Soft. absent: Tenderness - Rectal Exam Rectal Exam: Deferred - Exam Exam: NORMAL INSPECTION - Extremities Exam Extremities Exam: absent: Pedal Edema - Back Exam Back Exam: absent: CVA tenderness (L), CVA tenderness (R) - Neurological Exam Neurological Exam: Alert, Awake, Oriented x3 - Psychiatric Exam Psychiatric exam: Normal Mood - Skin Skin Exam: Dry Assessment and Plan (1) Atrial fibrillation Status: Acute (2) CHF (congestive heart failure) Status: Acute (3) Diabetes Status: Acute (4) Skin ulcer Status: Acute (5) Anemia Status: Active (6) Diabetes mellitus type 2 Status: Active (7) Dyslipidemia Status: Active (8) Cellulitis Status: Acute
[2017-07-23] MEDS: Dakin's Topical 0.25%-Half Strength (480 ml) TOP SCH (18:10)
[2017-07-23] MEDS: traZODone 25 mg Tab PO SCH (21:57)
--- NOTE | 2017-07-24 07:39 | CP.PCM.PN ---
Objective - Vital Signs/Intake and Output Vital Signs (last 24 hours): Temp Pulse Resp BP Pulse Ox 98.2 F 72 20 133/76 96 07/24/17 00:00 07/24/17 00:00 07/24/17 00:00 07/24/17 00:00 07/24/17 00:00 Intake and Output: 07/24/17 07/24/17 06:59 18:59 Intake Total 1390 Balance 1390 - Medications Medications: Current Medications Aspirin (Aspirin Chewable) 81 mg PO DAILY [facility] Last Admin: 07/23/17 10:33 Dose: 81 mg Bacitracin (Bacitracin) 30 gm TOP DAILY [facility] Last Admin: 07/23/17 13:38 Dose: 1 gm Dextrose (Dextrose 50% Inj) 0 ml IV STAT PRN; Protocol PRN Reason: Hypoglycemia Protocol Dextrose (Glutose 15) 0 gm PO ONCE PRN; Protocol PRN Reason: Hypoglycemia Protocol Famotidine (Pepcid) 20 mg PO BID [facility] Last Admin: 07/23/17 18:05 Dose: 20 mg Furosemide (Lasix) 40 mg IVP DAILY [facility] Last Admin: 07/23/17 10:39 Dose: 40 mg Glucagon (Glucagen Diagnostic Kit) 0 mg IM STAT PRN; Protocol PRN Reason: Hypoglycemia Protocol Hydralazine HCl (Apresoline) 25 mg PO QID [facility] Last Admin: 07/23/17 22:08 Dose: 25 mg Hydrocortisone (Cortizone 1% Cream) 0 gm EXT BID PRN PRN Reason: Itching / Pruritus Last Admin: 07/20/17 17:46 Dose: 1 applic Tigecycline 50 mg/ Sodium (Chloride) 50 mls @ 100 mls/hr IVPB Q12H [facility] Last Admin: 07/24/17 01:00 Dose: 100 mls/hr Insulin Human Regular (Novolin R) 0 unit SC ACHS [facility] PRN Reason: Protocol Last Admin: 07/23/17 22:00 Dose: Not Given Isosorbide Mononitrate (Imdur) 60 mg PO DAILY [facility] Last Admin: 07/23/17 10:39 Dose: 60 mg Lactic Acid (Lac-Hydrin 12% Lotion (225 G)) 0 gm TOP DAILY [facility] Last Admin: 07/23/17 10:40 Dose: 1 applic Losartan Potassium (Cozaar) 100 mg PO DAILY [facility] Last Admin: 07/23/17 10:38 Dose: 100 mg Metoprolol Succinate (Toprol Xl) 100 mg PO DAILY [facility] Last Admin: 07/23/17 10:38 Dose: 100 mg Rivaroxaban (Xarelto) 20 mg PO DAILY [facility] Last Admin: 07/23/17 10:39 Dose: 20 mg Rosuvastatin Calcium (Crestor) 5 mg PO HS [facility] Last Admin: 07/23/17 21:57 Dose: 5 mg Saccharomyces Boulardii (Florastor) 250 mg PO BID [facility] Last Admin: 07/23/17 17:58 Dose: 250 mg Sertraline HCl (Zoloft) 25 mg PO DAILY [facility] Last Admin: 07/23/17 12:00 Dose: 25 mg Sodium Hypochlorite (Dakins Solution 0.25%) 0 ml TOP BID [facility] Last Admin: 07/23/17 18:10 Dose: 1 % Trazodone HCl (Desyrel) 25 mg PO HS [facility] Last Admin: 07/23/17 21:57 Dose: 25 mg - Labs Labs: 07/23/17 07:22 07/23/17 07:22 PT 13.3 SECONDS (9.7-12.2) H 07/17/17 22:25 INR 1.2 07/17/17 22:25 APTT 34 SECONDS (21-34) 07/17/17 22:25 Assessment and Plan - Assessment and Plan (Free Text) Assessment: Chronic Non-healing skin ulcers Admitted to med/surg Pt with chronic PVD, Diabetes, chronic pedal edema Dr Tai, Vascular Surgeon, consulted Dr. Mack, Podiatry, consulted: - Wounds cleansed with hydrogen peroxide and dressed with DSD - Q12 dressing changes - peroxide cleanse, Dakin's soaked wet to dry 4x4 gauze, kerlix Compression stockings Nursing communication to keep legs elevated Continued home Bacitracin, Lac-Hydrin 12% solution Gram Stain/Wound Culture Right Leg 07/18: No polymorphonuclear WBCs observed, No organisms seen Gram Stain/Wound Culture Other Source 07/18: Few polymorphonuclear WBCs, Few gram negative rods 07/18 cultures resulted: proteus mirabilis, beta hemolytic strep group b, pseudomonas aeruginosa per Dr. Grimaldo, patient is to stay for a few days on tiglecycline unless we can send her to TCU in [place] Meds: Lasix 40mg IV daily Doxy 100mg IV Q12H Floraster 250mg PO Daily Imagin/16 CXR: prominent diffuse increased interstitial lung markings suggesting moderate venous congestion. consolidative changes at left lung base with small left pleural effusion. scattered nodular densities in upper lung zones with left greater than right 07/18 Lower extremity duplex shows PVD Right: mid to distal femoral, posterior tibial and peroneal veins were not visualized due to severe edema. no evidence of DVT or superficial vein thrombosis of veins. pulsatile venous flow was noted in the major veins. Left: mid to distal femoral, posterior tibial and peroneal veins were not visualized due to severe edema. no evidence of deep or superficial vein thrombosis for veins clearly visualized in left lower extremity. pulsatile flow noted in major veins CHF (diastolic dysfunction) 07/18 CT Angio of ileofem runoff refused by patient, stated she will think about getting scan tomorrow 07/19 07/21 patient continues to state she will consider CTA of ileofemoral runoff. Diastolic CHF history ECHO (03/11/14): LV EF 60%, reversible restrictive diastolic dysfunction - pt refusing follow up ECHO BNP: 2850 (previous admissions 7400, 1880) 07/21 Echo ordered 07/22 Echo: EF 45.1%, mild concentric left ventricular hypertrophy. moderate diastolic dysfunction. grade III restrictive diastolic dysfunction, right ventricular systolic function is moderately reduced. Atrial fibrillation EKG: Afib @ 94 bpm, no acute St/T wave changes Xarelto 20mg PO Daily Metoprolol 50mg PO Daily CHADS-2: score 4 pts (positive criteria: CHF, HTN, >75, Diabetes; 8.5% risk of thromboembolic event) HTN BP elevated at admission, elevated 07/23 HOLD home Norvasc 5mg PO Daily due to peripheral edema Imdur 60mg PO Daily Metoprolol 50mg PO Daily Losartan 100mg PO Daily 07/23 Hydralazine 25mg POQID added. Hyperlipidemia, no home meds 07/20 lipid panel TG 56 Cholesterol 126 LDL 59 HDL 45 T2DM No DM medications listed on long term med rec Accuchecks FORTUNATO Hypoglycemia protocol Diabetic education A1C 07/18: 8.3 07/24 Lipid panel Triglylcerides 56, cholesterol 126, LDL 59, HDL 45 Depression Zoloft 25mg PO Daily Insomnia Trazadone 50mg PO HS Transaminitis, resolved 35/42 Monitor Diet: Heart healthy diet Prophylaxis Xarelto 20mg PO Daily SCDs contraindicated Pepcid 20mg PO BID Pastoral Care - spiritual support Turn reposition every Q2H Maryan Armstrong PGY1
[2017-07-24] MEDS: (Novolin R) Insulin Human Regular 100 units/ml vial SC SCH ×4 (08:30→21:30)
[2017-07-24 08:33] LABS: EOS # 0.1 K/uL (0.0-0.7); EOS % 1.6 % (0.0-4.0); HEMATOCRIT 30.3 % (34.0-47.0); LYMPH # 1.1 K/uL (1.0-4.3); MEAN CORPUSCULAR HEMOGLOBIN 27.7 pg (27.0-31.0); MEAN CORPUSCULAR HGB CONC 32.2 g/dL (33.0-37.0); MEAN PLATELET VOLUME 9.2 fL (7.2-11.7); MONO # 0.6 K/uL (0.0-0.8); MONO % 16.7 % (0.0-10.0); NRBC % 0.2 % (0.0-2.0); RED CELL DISTRIBUTION WIDTH 18.5 % (11.5-14.5); WHITE BLOOD COUNT 3.8 K/uL (4.8-10.8)
[2017-07-24 08:59] LABS: ALB/GLOB RATIO 0.8 (1.0-2.1); ALKALINE PHOSPHATASE 171 U/L (38-126); ALT/SGPT 33 U/L (9-52); AST/SGOT 32 U/L (14-36); BILIRUBIN,TOTAL 0.9 mg/dL (0.2-1.3); BLOOD UREA NITROGEN 38 mg/dL (7-17); CALCIUM 8.3 mg/dl (8.6-10.4); CARBON DIOXIDE 27 mmol/L (22-30); CHLORIDE 103 mmol/L (98-107); GFR AFRICAN-AMERICAN > 60; GLUCOSE,RANDOM 122 mg/dL (65-105); MAGNESIUM 1.7 mg/dL (1.6-2.3); PHOSPHOROUS 3.7 mg/dL (2.5-4.5); POTASSIUM 4.4 mmol/L (3.6-5.2); SODIUM 138 mmol/L (132-148); TOTAL PROTEIN 6.9 g/dL (6.3-8.3)
[2017-07-24] MEDS: Saccharomyces Boulardi 250 mg Cap PO SCH ×2 (09:45→17:44)
[2017-07-24] MEDS: Metoprolol Succinate 100 mg XL Tab PO SCH (09:45)
[2017-07-24] MEDS: Ammonium Lactate 12% Lotion (225 g) TOP SCH (09:48)
[2017-07-24] MEDS: Bacitracin Ointment 30 GM TUBE TOP SCH (09:53)
[2017-07-24] MEDS: Dakin's Topical 0.25%-Half Strength (480 ml) TOP SCH ×2 (09:55→17:43)
--- NOTE | 2017-07-24 11:22 | CP.PCM.PN ---
Subjective - Date & Time of Evaluation Date of Evaluation: 07/24/17 Time of Evaluation: 11:20 - Subjective Subjective: Medical Attending Note: Patient seen and examined at bedside. Patient denies headache, denies chest pain, denies palpitations, denies abdominal pain, denies nausea, denies vomitting, reports she needs to urinate/ bed pain; discussed with nurse Latonya who will have clinical partner assist her. Patient denies abdominal pain, denies diarrhea. Patient continues to refuse CT for lower extremties. Patient does not believe me that she needs IV antibiotics. She would like to hear this from the bike assembler who has known her for 2 years. Objective - Vital Signs/Intake and Output Vital Signs (last 24 hours): Temp Pulse Resp BP Pulse Ox 97.4 F L 67 20 160/104 H 97 07/24/17 08:26 07/24/17 08:46 07/24/17 08:26 07/24/17 09:46 07/24/17 08:26 Intake and Output: 07/24/17 07/24/17 06:59 18:59 Intake Total 1390 Balance 1390 - Medications Medications: Current Medications Aspirin (Aspirin Chewable) 81 mg PO DAILY [facility] Last Admin: 07/24/17 09:46 Dose: 81 mg Bacitracin (Bacitracin) 30 gm TOP DAILY [facility] Last Admin: 07/24/17 09:53 Dose: 1 applic Dextrose (Dextrose 50% Inj) 0 ml IV STAT PRN; Protocol PRN Reason: Hypoglycemia Protocol Dextrose (Glutose 15) 0 gm PO ONCE PRN; Protocol PRN Reason: Hypoglycemia Protocol Famotidine (Pepcid) 20 mg PO BID [facility] Last Admin: 07/24/17 09:45 Dose: 20 mg Furosemide (Lasix) 40 mg IVP DAILY [facility] Last Admin: 07/24/17 09:46 Dose: 40 mg Glucagon (Glucagen Diagnostic Kit) 0 mg IM STAT PRN; Protocol PRN Reason: Hypoglycemia Protocol Hydralazine HCl (Apresoline) 50 mg PO TID [facility] Last Admin: 07/24/17 09:45 Dose: 50 mg Hydrocortisone (Cortizone 1% Cream) 0 gm EXT BID PRN PRN Reason: Itching / Pruritus Last Admin: 07/20/17 17:46 Dose: 1 applic Tigecycline 50 mg/ Sodium (Chloride) 50 mls @ 100 mls/hr IVPB Q12H [facility] Last Admin: 07/24/17 01:00 Dose: 100 mls/hr Insulin Human Regular (Novolin R) 0 unit SC ACHS [facility] PRN Reason: Protocol Last Admin: 07/24/17 08:30 Dose: 1 unit Isosorbide Mononitrate (Imdur) 60 mg PO DAILY [facility] Last Admin: 07/24/17 09:45 Dose: 60 mg Lactic Acid (Lac-Hydrin 12% Lotion (225 G)) 0 gm TOP DAILY [facility] Last Admin: 07/24/17 09:48 Dose: 1 applic Losartan Potassium (Cozaar) 100 mg PO DAILY [facility] Last Admin: 07/24/17 09:45 Dose: 100 mg Metoprolol Succinate (Toprol Xl) 100 mg PO DAILY [facility] Last Admin: 07/24/17 09:45 Dose: 100 mg Rivaroxaban (Xarelto) 20 mg PO DAILY [facility] Last Admin: 07/24/17 09:53 Dose: 20 mg Rosuvastatin Calcium (Crestor) 5 mg PO [facility] Last Admin: 07/23/17 21:57 Dose: 5 mg Saccharomyces Boulardii (Florastor) 250 mg PO BID [facility] Last Admin: 07/24/17 09:45 Dose: 250 mg Sertraline HCl (Zoloft) 25 mg PO DAILY [facility] Last Admin: 07/24/17 09:45 Dose: 25 mg Sodium Hypochlorite (Dakins Solution 0.25%) 0 ml TOP BID [facility] Last Admin: 07/24/17 09:55 Dose: 1 applic Trazodone HCl (Desyrel) 25 mg PO HS [facility] Last Admin: 07/23/17 21:57 Dose: 25 mg - Labs Labs: 07/24/17 08:27 07/24/17 08:27 PT 13.3 SECONDS (9.7-12.2) H 07/17/17 22:25 INR 1.2 07/17/17 22:25 APTT 34 SECONDS (21-34) 07/17/17 22:25 - Constitutional Appears: Non-toxic, No Acute Distress - Head Exam Head Exam: NORMAL INSPECTION - Eye Exam Eye Exam: EOMI - ENT Exam ENT Exam: Mucous Membranes Moist - Respiratory Exam Respiratory Exam: Clear to Ausculation Bilateral, NORMAL BREATHING PATTERN. absent: Rales, Rhonchi, Wheezes - Cardiovascular Exam Cardiovascular Exam: REGULAR RHYTHM, +S1, +S2 - GI/Abdominal Exam GI & Abdominal Exam: Soft, Normal Bowel Sounds. absent: Distended, Firm, Guarding, Rigid, Tenderness, Rebound - Extremities Exam Extremities Exam: absent: Pedal Edema Additional comments: bilateral wounds over lower extremities heels: clean/dry/intact - Neurological Exam Neurological Exam: Alert, Awake, Oriented x3 Assessment and Plan - Assessment and Plan (Free Text) Assessment: Patient seen, examined, and case discussed with day-time resident. Patient seen this morning. Discussed results of echocardiogram. patient refuses to listen to results. patient keeps shouting she already knows she has a heart murmur, does not want to be on medications. Patient continues to refuse CT angio recommended by vascular surgery. Patient refuses PICC needed for IV abx. Patient refuses to listen me in regards to IV abx recommendation by ID. She wants to hear from her "bike assembler who has known her for two years" per her wording Increase Hydralazine 50mg PO TID for uncontrolled blood pressure. Patient at times is noncooperative. ID has patient on IV Tigecycline. Assessment/Plan 1) Chronic Non-healing skin ulcers * Admit to med/surg * Pt with chronic PVD, Diabetes, chronic pedal edema * Podiatry, Dr. Mack on consult * Wound cultures obtained x3-->Follow-up * Wounds cleansed with hydrogen peroxide and dressed with DSD * Q12 dressing changes - peroxide cleanse, Dakin's soaked wet to dry 4x4 gauze , kerlix * Per medicine, Lasix 40mg IV daily * Continue IV abx per medicine - Doxycycline 100mg IV Q12H (patient is NOT on doxcycline current) * Patient to be admitted to med/surg * Podiatry will continue to follow patient while in house * Vascular surgery, Dr. Tai on consult * Patient refused CT angio of ileofemor runoff and continues to refuse daily * Infectious Disease, Dr Grimaldo * Tigecycline 50mg IV Q12h (active since 07/22/17) * Wound Cultures * 1st Culture: 07/18 Leg Right Morg Morganii Ss Morganii; Beta Hemolytic Strep Group B * 2nd Culture: 07/18: Proteus Mirabilis, Corynebacterium Species, Gram Negative Alexander * 3rd Culture: 07/18 Proteus Mirabilis, Beta hemolytic Strep Group B, Gram Negative Alexander * Compression stockings * Nursing communication to keep legs elevated * Continued home Bacitracin, Lac-Hydrin 12% solution, * Lasix 40mg IV daily * Prior 07/10/16: no evidence of deep/superficial vein thrombosis of the right lower extremity w excellent venous flow. Normal venous flow noted in the left common femoral vein 2) History of CHF (diastolic dysfunction) * Echocardiogram (07/22/17): dilated cardiac chambers, mild concentric LVH, systolic function is moderately impaired. EF: 40-45% moderate diastolic dysfunction. Elevated left atrial pressure. Grade III restrictive diastolic dysfunction. RV systolic function is moderately reduced. Moderate tricupsid regurgitation. Trace pericardial effusion. * Patient actively refuses follow up ECHO * CXR: Cardiomegaly, questionable small left effusion (wetread, f/u left effusion) * BNP: 2850 (previous admissions 7400, 1880) * Lasix 40mg IV daily * Cozaar 100mg PO daily * start Aspirin 81mg PO daily * start Crestor 5mg PO qHS * Increase Toprol XL 100mg PO daily * Monitor daily weights * intake and outputs 3) History of Atrial fibrillation * EKG: Afib @ 94 bpm, no acute St/T wave changes * Xarelto 20mg PO Daily * Toprol XL 100mg PO daily * CHADS-2: score 4 pts (positive criteria: CHF, HTN, >75, Diabetes; 8.5% risk of thromboembolic event) 4) History of HTN * uncontrolled * Imdur 60mg PO Daily * increased Toprol XL 100mg PO daily * Cozaar 100mg PO daily * Increae Hydralazine 50mg PO TID * Monitor 5) History of Hyperlipidemia * No meds listed on chart * Lipid panel: T, Chol: 126, LDL; 59, HDL: 45 * Crestor 5mg POqHS 6) Type two DM * patient denies she has any history of diabetes; patient reports this is the first time she is being told she had diabetes; attempted to explain to the patient regarding implications of diabetes but she does not want to listen * No DM medications listed on [facility] med rec * [id number]: 8.3 * Changed diet to heart healthy, diabetic,1500 ML diet * Lipid panel: T, Chol: 126, LDL; 59, HDL: 45 * Accuchecks QAC and HS * Low dose RISS * Hypoglycemia protocol * Salesperson [employer] referral * accounting professional referral 7) History of Depression * Zoloft 25mg PO Daily 8) Insomnia * Trazadone 25mg PO HS 9) Transaminitis * AST/ALT 42/55 * Monitor LFTS * Crestor 5mg POqHS * Order Hepatitis panel 10) Anemia * order for iron studies, ferritin, reticulocyte count, b12, folate, haptoglobin , occult blood--reordered * likely chronic disease; based on pattern in the EMR 11) Prophylaxis * Xarelto 20mg PO Daily * SCDs contraindicated * Pepcid 20mg PO BID * pastoral care consult * Turn Q2 HR prevent sacral decubitus * PT eval: MATT Disposition: * f/u ID to see if available IV abx and/or needs PICC line; patient wants to her from her bike assembler * Blood pressure is uncontrolled; increase Hydralazine 50mg PO TID-->improved to 149/91 at 11:20AM * Patient has placement secure; however treatment needs to be decided. Patient refuses to hear from me that per ID recommendation for IV abx. Patient wants to hear from bike assembler.
[2017-07-24 18:02] LABS: FOLATE > 20.0 ng/mL
[2017-07-24] MEDS: traZODone 25 mg Tab PO SCH (21:33)
[2017-07-25] MEDS: (Novolin R) Insulin Human Regular 100 units/ml vial SC SCH ×4 (07:51→22:13)
[2017-07-25 08:17] LABS: BASO % 0.9 % (0.0-2.0); EOS % 1.3 % (0.0-4.0); HEMATOCRIT 28.6 % (34.0-47.0); LYMPH % 27.6 % (20.0-40.0); MEAN CELL VOLUME 85.4 fL (81.0-99.0); MEAN CORPUSCULAR HEMOGLOBIN 27.5 pg (27.0-31.0); MEAN CORPUSCULAR HGB CONC 32.2 g/dL (33.0-37.0); MEAN PLATELET VOLUME 9.1 fL (7.2-11.7); MONO # 0.6 K/uL (0.0-0.8); MONO % 16.7 % (0.0-10.0); NRBC % 0.1 % (0.0-2.0); RED CELL DISTRIBUTION WIDTH 18.3 % (11.5-14.5); WHITE BLOOD COUNT 3.7 K/uL (4.8-10.8)
[2017-07-25 08:52] LABS: ALKALINE PHOSPHATASE 164 U/L (38-126); ALT/SGPT 37 U/L (9-52); AST/SGOT 28 U/L (14-36); BILIRUBIN,TOTAL 0.8 mg/dL (0.2-1.3); BLOOD UREA NITROGEN 38 mg/dL (7-17); CALCIUM 8.2 mg/dl (8.6-10.4); CARBON DIOXIDE 27 mmol/L (22-30); CHLORIDE 103 mmol/L (98-107); GFR AFRICAN-AMERICAN > 60; GLUCOSE,RANDOM 117 mg/dL (65-105); MAGNESIUM 1.7 mg/dL (1.6-2.3); PHOSPHOROUS 3.6 mg/dL (2.5-4.5); POTASSIUM 4.1 mmol/L (3.6-5.2); SODIUM 137 mmol/L (132-148); TOTAL PROTEIN 6.4 g/dL (6.3-8.3)
[2017-07-25 08:54] LABS: ALB/GLOB RATIO 0.8 (1.0-2.1)
[2017-07-25 09:08] LABS: IRON 27 ug/dL (37-170)
--- NOTE | 2017-07-25 09:27 | CP.PCM.PCO ---
Physician Communication Note - Physician Communication Note Physician Communication Note: Pt refused podiatry dressing change this morning, will see tomorrow
[2017-07-25] MEDS: Bacitracin Ointment 30 GM TUBE TOP SCH (09:50)
[2017-07-25] MEDS: Dakin's Topical 0.25%-Half Strength (480 ml) TOP SCH ×3 (10:04→18:17)
[2017-07-25] MEDS: Metoprolol Succinate 100 mg XL Tab PO SCH (10:12)
[2017-07-25] MEDS: Saccharomyces Boulardi 250 mg Cap PO SCH ×2 (10:20→18:12)
[2017-07-25] MEDS: Ammonium Lactate 12% Lotion (225 g) TOP SCH (10:22)
--- NOTE | 2017-07-25 16:11 | CP.PCM.CON ---
History of Present Illness - History of Present Illness History of Present Illness: Asked today to see pt for anemia and blood in stool. Daughter is present. ANemia- chrocic. Stool OB - ordered- is positive with report of sl red streaks. Pt denies GI diseasse, colon disease, colonoscopy in past. Denies RB, abdom tracy, melena, wt loss, dysphaagia. Review of Systems - Constitutional Constitutional: Fatigue, Weakness. absent: Weight Gain, Weight Loss - EENT Eyes: absent: Photophobia - Cardiovascular Cardiovascular: absent: Chest Pain - Respiratory Respiratory: absent: Hemoptysis, Wheezing - Gastrointestinal Gastrointestinal: absent: Abdominal Pain, Constipation, Diarrhea, Dysphagia, Hematemesis, Hematochezia, Melena, Vomiting - Genitourinary Genitourinary: absent: Hematuria - Musculoskeletal Musculoskeletal: absent: Arthralgias - Integumentary Integumentary: Rash. absent: Jaundice - Neurological Neurological: absent: Convulsions - Psychiatric Psychiatric: absent: Hallucinations Past Patient History - Infectious Disease Hx of Infectious Diseases: None - Tetanus Immunizations Tetanus Immunization: Unknown - Past Medical History & Family History Past Medical History?: Yes - Past Social History Smoking Status: Never Smoked - CARDIAC Hx Congestive Heart Failure: Yes Hx Hypertension: Yes - PULMONARY Hx Chronic Obstructive Pulmonary Disease (COPD): Yes - NEUROLOGICAL Hx Neurological Disorder: Yes Hx Dementia: Yes - HEENT Hx HEENT Problems: No - RENAL Hx Chronic Kidney Disease: No - ENDOCRINE/METABOLIC Hx Diabetes Mellitus Type 2: Yes - HEMATOLOGICAL/ONCOLOGICAL Hx Blood Disorders: No Hx Blood Transfusions: No Hx Blood Transfusion Reaction: No - INTEGUMENTARY Hx Dermatological Problems: Yes Other/Comment: Hx Diabetic foot ulcer and non healing wound - MUSCULOSKELETAL/RHEUMATOLOGICAL Hx Musculoskeletal Disorders: Yes Hx Falls: Yes - GASTROINTESTINAL Hx Gastrointestinal Disorders: No - GENITOURINARY/GYNECOLOGICAL Hx Genitourinary Disorders: Yes Hx Urinary Tract Infection: Yes - PSYCHIATRIC Hx Psychophysiologic Disorder: Yes Hx Anxiety: Yes Hx Depression: Yes Hx Substance Use: No - SURGICAL HISTORY Hx Surgeries: Yes Hx Section: Yes (x2) - ANESTHESIA Hx Anesthesia: Yes Hx Anesthesia Reactions: No Hx Malignant Hyperthermia: No Meds Allergies/Adverse Reactions: Allergies Allergy/AdvReac Type Severity Reaction Status Date / Time ertapenem sodium Allergy Verified 04/17/17 19:30 [From Invanz] - Medications Medications: Current Medications Aspirin (Aspirin Chewable) 81 mg PO DAILY [facility] Last Admin: 07/25/17 10:12 Dose: 81 mg Bacitracin (Bacitracin) 30 gm TOP DAILY [facility] Last Admin: 07/25/17 09:50 Dose: Not Given Dextrose (Dextrose 50% Inj) 0 ml IV STAT PRN; Protocol PRN Reason: Hypoglycemia Protocol Dextrose (Glutose 15) 0 gm PO ONCE PRN; Protocol PRN Reason: Hypoglycemia Protocol Famotidine (Pepcid) 20 mg PO BID [facility] Last Admin: 07/25/17 10:20 Dose: Not Given Furosemide (Lasix) 40 mg IVP DAILY [facility] Last Admin: 07/25/17 10:11 Dose: 40 mg Glucagon (Glucagen Diagnostic Kit) 0 mg IM STAT PRN; Protocol PRN Reason: Hypoglycemia Protocol Hydralazine HCl (Apresoline) 50 mg PO TID [facility] Last Admin: 07/25/17 14:07 Dose: 50 mg Hydrocortisone (Cortizone 1% Cream) 0 gm EXT BID PRN PRN Reason: Itching / Pruritus Last Admin: 07/20/17 17:46 Dose: 1 applic Tigecycline 50 mg/ Sodium (Chloride) 50 mls @ 100 mls/hr IVPB Q12H [facility] Last Admin: 07/25/17 11:46 Dose: 100 mls/hr Insulin Human Regular (Novolin R) 0 unit SC ACHS [facility] PRN Reason: Protocol Last Admin: 07/25/17 11:49 Dose: 1 unit Isosorbide Mononitrate (Imdur) 60 mg PO DAILY [facility] Last Admin: 07/25/17 10:12 Dose: 60 mg Lactic Acid (Lac-Hydrin 12% Lotion (225 G)) 0 gm TOP DAILY [facility] Last Admin: 07/25/17 10:22 Dose: 1 applic Losartan Potassium (Cozaar) 100 mg PO DAILY [facility] Last Admin: 07/25/17 10:12 Dose: 100 mg Metoprolol Succinate (Toprol Xl) 100 mg PO DAILY [facility] Last Admin: 07/25/17 10:12 Dose: 100 mg Rivaroxaban (Xarelto) 20 mg PO DAILY [facility] Last Admin: 07/25/17 10:12 Dose: 20 mg Rosuvastatin Calcium (Crestor) 5 mg PO HS [facility] Last Admin: 07/24/17 21:33 Dose: Not Given Saccharomyces Boulardii (Florastor) 250 mg PO BID [facility] Last Admin: 07/25/17 10:20 Dose: Not Given Sertraline HCl (Zoloft) 25 mg PO DAILY [facility] Last Admin: 07/25/17 10:12 Dose: 25 mg Sodium Hypochlorite (Dakins Solution 0.25%) 0 ml TOP BID [facility] Last Admin: 07/25/17 10:04 Dose: Not Given Trazodone HCl (Desyrel) 25 mg PO HS [facility] Last Admin: 07/24/17 21:33 Dose: Not Given Physical Exam - Constitutional Appears: Non-toxic - Neck Exam Neck exam: Negative for: Tenderness - Respiratory Exam Respiratory Exam: Clear to Auscultation Bilateral - Cardiovascular Exam Cardiovascular Exam: RRR - GI/Abdominal Exam GI & Abdominal Exam: Normal Bowel Sounds, Soft. absent: Guarding, Mass, Rebound - Extremities Exam Extremities exam: Positive for: pedal edema - Neurological Exam Neurological exam: Alert, Oriented x3 Results - Vital Signs Recent Vital Signs: Last Vital Signs Temp 97.3 F L 07/25/17 08:35 Pulse 60 07/25/17 08:35 Resp 20 07/25/17 08:35 BP 151/75 H 07/25/17 13:26 Pulse Ox 96 07/25/17 08:35 - Labs Result Diagrams: 07/25/17 08:01 07/25/17 08:01 Labs: Laboratory Results - last 24 hr 07/24/17 07/24/17 07/24/17 08:27 16:05 21:00 WBC RBC Hgb Hct MCV MCH MCHC RDW Plt Count MPV Neut % (Auto) Lymph % (Auto) [place] % (Auto) Eos % (Auto) Baso % (Auto) Neut # Lymph # [place] # Eos # Baso # Sodium Potassium Chloride Carbon Dioxide Anion Gap BUN Creatinine Est GFR ( Amer) Est GFR (Non-Af Amer) POC Glucose (mg/dL) 265 H 190 H Random Glucose Calcium Phosphorus Magnesium Iron TIBC % Saturation Ferritin 30.1 Total Bilirubin AST ALT Alkaline Phosphatase Total Protein Albumin Globulin Albumin/Globulin Ratio Vitamin B12 > 1000 H Folate > 20.0 Stool Occult Blood 07/25/17 07/25/17 07/25/17 02:47 07:50 08:01 WBC RBC Hgb Hct MCV MCH MCHC RDW Plt Count MPV Neut % (Auto) Lymph % (Auto) [place] % (Auto) Eos % (Auto) Baso % (Auto) Neut # Lymph # [place] # Eos # Baso # Sodium Potassium Chloride Carbon Dioxide Anion Gap BUN Creatinine Est GFR ( Amer) Est GFR (Non-Af Amer) POC Glucose (mg/dL) 118 H 126 H Random Glucose Calcium Phosphorus Magnesium Iron 27 L TIBC 313 % Saturation 9 L Ferritin Total Bilirubin AST ALT Alkaline Phosphatase Total Protein Albumin Globulin Albumin/Globulin Ratio Vitamin B12 Folate Stool Occult Blood 07/25/17 07/25/17 07/25/17 08:01 08:01 11:19 WBC 3.7 L RBC 3.34 L Hgb 9.2 L Hct 28.6 L MCV 85.4 MCH 27.5 MCHC 32.2 L RDW 18.3 H Plt Count 169 MPV 9.1 Neut % (Auto) 53.5 Lymph % (Auto) 27.6 [place] % (Auto) 16.7 H Eos % (Auto) 1.3 Baso % (Auto) 0.9 Neut # 2.0 Lymph # 1.0 [place] # 0.6 Eos # 0.0 Baso # 0.0 Sodium 137 Potassium 4.1 Chloride 103 Carbon Dioxide 27 Anion Gap 10 BUN 38 H Creatinine 0.8 Est GFR ( Amer) > 60 Est GFR (Non-Af Amer) > 60 POC Glucose (mg/dL) 175 H Random Glucose 117 H Calcium 8.2 L Phosphorus 3.6 Magnesium 1.7 Iron TIBC % Saturation Ferritin Total Bilirubin 0.8 AST 28 ALT 37 Alkaline Phosphatase 164 H Total Protein 6.4 Albumin 2.9 L Globulin 3.5 Albumin/Globulin Ratio 0.8 L Vitamin B12 Folate Stool Occult Blood 07/25/17 14:11 WBC RBC Hgb Hct MCV MCH MCHC RDW Plt Count MPV Neut % (Auto) Lymph % (Auto) [place] % (Auto) Eos % (Auto) Baso % (Auto) Neut # Lymph # [place] # Eos # Baso # Sodium Potassium Chloride Carbon Dioxide Anion Gap BUN Creatinine Est GFR ( Amer) Est GFR (Non-Af Amer) POC Glucose (mg/dL) Random Glucose Calcium Phosphorus Magnesium Iron TIBC % Saturation Ferritin Total Bilirubin AST ALT Alkaline Phosphatase Total Protein Albumin Globulin Albumin/Globulin Ratio Vitamin B12 Folate Stool Occult Blood Positive H Assessment & Plan (1) Atrial fibrillation Status: Acute (2) CHF (congestive heart failure) Status: Acute (3) Diabetes Status: Acute (4) Skin ulcer Status: Acute (5) Anemia Assessment and Plan: With g pos stool and reports of sl red streaks. Pt denies GI bleed. Rec- colonsocpy when stable. Pt is not agreeing at this time. Check Hb.. Status: Active (6) Diabetes mellitus type 2 Status: Active (7) Dyslipidemia Status: Active (8) Congestive heart failure Status: Acute
--- NOTE | 2017-07-25 17:31 | CP.PCM.PN ---
Subjective - Date & Time of Evaluation Date of Evaluation: 07/25/17 Time of Evaluation: 09:30 - Subjective Subjective: Medical Attending Note Patient seen and examined at bedside. Patient refusing PO anti-hypertensives overnight. Patient does not believe she has blood pressure problems. I spoke again with patient and patient's daughter in the evening. Patient does not want to share her medical information with her daughter at bedside. Patient inquire about a marsh given she reports urinary incontinece, advised for not Marsh to avoid risk for urinary tract infection. Objective - Vital Signs/Intake and Output Vital Signs (last 24 hours): Temp Pulse Resp BP Pulse Ox 97.3 F L 60 20 151/75 H 96 07/25/17 08:35 07/25/17 08:35 07/25/17 08:35 07/25/17 13:26 07/25/17 08:35 Intake and Output: 07/25/17 07/25/17 06:59 18:59 Intake Total 750 Balance 750 - Medications Medications: Current Medications Aspirin (Aspirin Chewable) 81 mg PO DAILY [facility] Last Admin: 07/25/17 10:12 Dose: 81 mg Bacitracin (Bacitracin) 30 gm TOP DAILY [facility] Last Admin: 07/25/17 09:50 Dose: Not Given Dextrose (Dextrose 50% Inj) 0 ml IV STAT PRN; Protocol PRN Reason: Hypoglycemia Protocol Dextrose (Glutose 15) 0 gm PO ONCE PRN; Protocol PRN Reason: Hypoglycemia Protocol Famotidine (Pepcid) 20 mg PO BID [facility] Last Admin: 07/25/17 10:20 Dose: Not Given Furosemide (Lasix) 40 mg IVP DAILY [facility] Last Admin: 07/25/17 10:11 Dose: 40 mg Glucagon (Glucagen Diagnostic Kit) 0 mg IM STAT PRN; Protocol PRN Reason: Hypoglycemia Protocol Hydralazine HCl (Apresoline) 50 mg PO TID [facility] Last Admin: 07/25/17 14:07 Dose: 50 mg Hydrocortisone (Cortizone 1% Cream) 0 gm EXT BID PRN PRN Reason: Itching / Pruritus Last Admin: 07/20/17 17:46 Dose: 1 applic Tigecycline 50 mg/ Sodium (Chloride) 50 mls @ 100 mls/hr IVPB Q12H [facility] Last Admin: 07/25/17 11:46 Dose: 100 mls/hr Insulin Human Regular (Novolin R) 0 unit SC [facility] PRN Reason: Protocol Last Admin: 07/25/17 11:49 Dose: 1 unit Isosorbide Mononitrate (Imdur) 60 mg PO DAILY [facility] Last Admin: 07/25/17 10:12 Dose: 60 mg Lactic Acid (Lac-Hydrin 12% Lotion (225 G)) 0 gm TOP DAILY [facility] Last Admin: 07/25/17 10:22 Dose: 1 applic Losartan Potassium (Cozaar) 100 mg PO DAILY [facility] Last Admin: 07/25/17 10:12 Dose: 100 mg Metoprolol Succinate (Toprol Xl) 100 mg PO DAILY [facility] Last Admin: 07/25/17 10:12 Dose: 100 mg Rivaroxaban (Xarelto) 20 mg PO DAILY [facility] Last Admin: 07/25/17 10:12 Dose: 20 mg Rosuvastatin Calcium (Crestor) 5 mg PO HS [facility] Last Admin: 07/24/17 21:33 Dose: Not Given Saccharomyces Boulardii (Florastor) 250 mg PO BID [facility] Last Admin: 07/25/17 10:20 Dose: Not Given Sertraline HCl (Zoloft) 25 mg PO DAILY [facility] Last Admin: 07/25/17 10:12 Dose: 25 mg Sodium Hypochlorite (Dakins Solution 0.25%) 0 ml TOP BID [facility] Last Admin: 07/25/17 10:04 Dose: Not Given Trazodone HCl (Desyrel) 25 mg PO HS [facility] Last Admin: 07/24/17 21:33 Dose: Not Given - Labs Labs: 07/25/17 08:01 07/25/17 08:01 PT 13.3 SECONDS (9.7-12.2) H 07/17/17 22:25 INR 1.2 07/17/17 22:25 APTT 34 SECONDS (21-34) 07/17/17 22:25 - Constitutional Appears: Non-toxic, No Acute Distress - Head Exam Head Exam: NORMAL INSPECTION - Eye Exam Eye Exam: EOMI - ENT Exam ENT Exam: Mucous Membranes Moist - Respiratory Exam Respiratory Exam: NORMAL BREATHING PATTERN Additional comments: good air exchanged - Cardiovascular Exam Cardiovascular Exam: REGULAR RHYTHM, +S1, +S2 - GI/Abdominal Exam GI & Abdominal Exam: Soft, Normal Bowel Sounds. absent: Distended, Firm, Guarding, Rigid, Tenderness, Rebound - Neurological Exam Neurological Exam: Alert, Awake, Oriented x3 Assessment and Plan - Assessment and Plan (Free Text) Assessment: Please note: computer did not save note from yesterday. Also please note: patient has been on IV tigecycline by ID since 07/22/17; Doxycycline has been off since 07/21/17 otherwise notated in podiatry resident' s note. Discussed with nurse Alice, patient had postive blood streaks in her stool. GI (Dr. Velez// Stephanie) delinquent tax collection assistant. Discussed case with Dr. Brown who will come and see the patient. Discussed case with secondary social studies teacher, patient will allow for IV Abx during podiatry encounter. Each day when I have seen the patient is refusing for PICC line. confirmed with daughter at bedside that patient makes her own decisions. Assessment/Plan 1) Chronic Non-healing skin ulcers * Admit to med/surg * Pt with chronic PVD, Diabetes, chronic pedal edema * Podiatry, Dr. Mack on consult * Wound cultures obtained x3-->Follow-up * Wounds cleansed with hydrogen peroxide and dressed with DSD * Q12 dressing changes - peroxide cleanse, Dakin's soaked wet to dry 4x4 gauze , kerlix * Per medicine, Lasix 40mg IV timothy * Vascular surgery, Dr. Tai on consult * Patient refused CT angio of ileofemor runoff and continues to refuse daily * Infectious Disease, Dr Grimaldo * Tigecycline 50mg IV Q12h (active since 07/22/17) * Wound Cultures * 1st Culture: 07/18 Leg Right Morg Morganii Ss Morganii; Beta Hemolytic Strep Group B * 2nd Culture: 07/18: Proteus Mirabilis, Corynebacterium Species, Gram Negative Alexander * 3rd Culture: 07/18 Proteus Mirabilis, Beta hemolytic Strep Group B, Gram Negative Alexander * ID is recommending for IV Abx * Compression stockings * Nursing communication to keep legs elevated * Continued home Bacitracin, Lac-Hydrin 12% solution, * Lasix 40mg IV daily * Prior 07/10/16: no evidence of deep/superficial vein thrombosis of the right lower extremity w excellent venous flow. Normal venous flow noted in the left common femoral vein 2) History of CHF (diastolic dysfunction) * Patient is not being compliant on anti-hypertensives * Echocardiogram (07/22/17): dilated cardiac chambers, mild concentric LVH, systolic function is moderately impaired. EF: 40-45% moderate diastolic dysfunction. Elevated left atrial pressure. Grade III restrictive diastolic dysfunction. RV systolic function is moderately reduced. Moderate tricupsid regurgitation. Trace pericardial effusion. * Patient actively refuses follow up ECHO * CXR: Cardiomegaly, questionable small left effusion (wetread, f/u left effusion) * BNP: 2850 (previous admissions 7400, 1880) * Lasix 40mg IV daily * start Aspirin 81mg PO daily * start Crestor 5mg PO qHS * start Toprol XL 100mg PO daily * c/w Imdur 60mg PO daily * c/w Cozaar 100mg PO daily * Monitor daily weights * intake and outputs 3) History of Atrial fibrillation * EKG: Afib @ 94 bpm, no acute St/T wave changes * Xarelto 20mg PO Daily * Toprol XL 100mg PO daily * CHADS-2: score 4 pts (positive criteria: CHF, HTN, >75, Diabetes; 8.5% risk of thromboembolic event) 4) History of HTN * uncontrolled; patient refusing PO anti-hypertensives * Imdur 60mg PO Daily * Toprol XL 100mg PO daily * Cozaar 100mg PO daily * c/w Hydralazine 50mg PO TID * Monitor 5) History of Hyperlipidemia * No meds listed on chart * Lipid panel: T, Chol: 126, LDL; 59, HDL: 45 * Crestor 5mg POqHS 6) Type two DM * patient denies she has any history of diabetes; patient reports this is the first time she is being told she had diabetes; attempted to explain to the patient regarding implications of diabetes but she does not want to listen * No DM medications listed on correction med rec * [id number]: 8.3 * Changed diet to heart healthy, diabetic,1500 ML diet * Lipid panel: T, Chol: 126, LDL; 59, HDL: 45 * Accuchecks QAC and HS * Low dose RISS * Hypoglycemia protocol * Cogeneration Technician referral * development educator referral 7) History of Depression * Zoloft 25mg PO Daily 8) Insomnia * Trazadone 25mg PO HS 9) Transaminitis * Monitor LFTS * Crestor 5mg POqHS * Order Hepatitis panel 10) Anemia of Chronic Disease * Iron: 27 low, TIBC: 313, percent iron: 9%, occult blood positive * B12: >1000 * Folate >20 * Ferritin: normal * Reticulocyte count: 2.0 * GI consult (/ [facility]/Dr. Brown) for positive stool occult blood 11) Prophylaxis * Xarelto 20mg PO Daily * SCDs contraindicated * Pepcid 20mg PO BID * pastoral care consult * Turn Q2 HR prevent sacral decubitus * PT eval: MATT Disposition: * f/U GI consult for positive stool occult * f/u podiatry given patient only trusts podiatry for IV abx recommendation. She refuses to listen to me. * Patient has placement secure; however treatment needs to be decided. Patient refuses to hear from me that per ID recommendation for IV abx. Patient wants to hear from epitaxial reactor technician.
--- NOTE | 2017-07-25 18:46 | CP.PCM.PN ---
Subjective - Date & Time of Evaluation Date of Evaluation: 07/25/17 Time of Evaluation: 07:00 - Subjective Subjective: events noted iv rx in progress Objective - Vital Signs/Intake and Output Vital Signs (last 24 hours): Temp Pulse Resp BP Pulse Ox 98.0 F 69 20 173/83 H 95 07/25/17 15:00 07/25/17 15:00 07/25/17 15:00 07/25/17 15:00 07/25/17 15:00 Intake and Output: 07/25/17 07/25/17 06:59 18:59 Intake Total 750 Balance 750 - Medications Medications: Current Medications Aspirin (Aspirin Chewable) 81 mg PO DAILY [facility] Last Admin: 07/25/17 10:12 Dose: 81 mg Bacitracin (Bacitracin) 30 gm TOP DAILY [facility] Last Admin: 07/25/17 09:50 Dose: Not Given Dextrose (Dextrose 50% Inj) 0 ml IV STAT PRN; Protocol PRN Reason: Hypoglycemia Protocol Dextrose (Glutose 15) 0 gm PO ONCE PRN; Protocol PRN Reason: Hypoglycemia Protocol Famotidine (Pepcid) 20 mg PO BID [facility] Last Admin: 07/25/17 18:12 Dose: 20 mg Furosemide (Lasix) 40 mg IVP DAILY [facility] Last Admin: 07/25/17 10:11 Dose: 40 mg Glucagon (Glucagen Diagnostic Kit) 0 mg IM STAT PRN; Protocol PRN Reason: Hypoglycemia Protocol Hydralazine HCl (Apresoline) 50 mg PO TID [facility] Last Admin: 07/25/17 18:12 Dose: 50 mg Hydrocortisone (Cortizone 1% Cream) 0 gm EXT BID PRN PRN Reason: Itching / Pruritus Last Admin: 07/20/17 17:46 Dose: 1 applic Tigecycline 50 mg/ Sodium (Chloride) 50 mls @ 100 mls/hr IVPB Q12H [facility] Last Admin: 07/25/17 11:46 Dose: 100 mls/hr Insulin Human Regular (Novolin R) 0 unit SC ACHS [facility] PRN Reason: Protocol Last Admin: 07/25/17 18:13 Dose: Not Given Isosorbide Mononitrate (Imdur) 60 mg PO DAILY [facility] Last Admin: 07/25/17 10:12 Dose: 60 mg Lactic Acid (Lac-Hydrin 12% Lotion (225 G)) 0 gm TOP DAILY [facility] Last Admin: 07/25/17 10:22 Dose: 1 applic Losartan Potassium (Cozaar) 100 mg PO DAILY [facility] Last Admin: 07/25/17 10:12 Dose: 100 mg Metoprolol Succinate (Toprol Xl) 100 mg PO DAILY [facility] Last Admin: 07/25/17 10:12 Dose: 100 mg Rivaroxaban (Xarelto) 20 mg PO DAILY [facility] Last Admin: 07/25/17 10:12 Dose: 20 mg Rosuvastatin Calcium (Crestor) 5 mg PO HS [facility] Last Admin: 07/24/17 21:33 Dose: Not Given Saccharomyces Boulardii (Florastor) 250 mg PO BID [facility] Last Admin: 07/25/17 18:12 Dose: 250 mg Sertraline HCl (Zoloft) 25 mg PO DAILY [facility] Last Admin: 07/25/17 10:12 Dose: 25 mg Sodium Hypochlorite (Dakins Solution 0.25%) 0 ml TOP BID [facility] Last Admin: 07/25/17 18:17 Dose: 1 applic Trazodone HCl (Desyrel) 25 mg PO HS [facility] Last Admin: 07/24/17 21:33 Dose: Not Given - Labs Labs: 07/25/17 08:01 07/25/17 08:01 PT 13.3 SECONDS (9.7-12.2) H 07/17/17 22:25 INR 1.2 07/17/17 22:25 APTT 34 SECONDS (21-34) 07/17/17 22:25 - Constitutional Appears: Non-toxic, Chronically Ill - Head Exam Head Exam: NORMOCEPHALIC - Eye Exam Eye Exam: PERRL - ENT Exam ENT Exam: Mucous Membranes Dry - Neck Exam Neck Exam: absent: Lymphadenopathy - Respiratory Exam Respiratory Exam: Decreased Breath Sounds - Cardiovascular Exam Cardiovascular Exam: REGULAR RHYTHM - GI/Abdominal Exam GI & Abdominal Exam: Distended, Soft Assessment and Plan (1) Atrial fibrillation Status: Acute (2) CHF (congestive heart failure) Status: Acute (3) Diabetes Status: Acute (4) Skin ulcer Status: Acute (5) Anemia Status: Active (6) Diabetes mellitus type 2 Status: Active (7) Dyslipidemia Status: Active (8) Cellulitis Status: Acute
[2017-07-25] MEDS: traZODone 25 mg Tab PO SCH (22:13)
[2017-07-26] MEDS: (Novolin R) Insulin Human Regular 100 units/ml vial SC SCH ×4 (07:39→21:30)
[2017-07-26 07:40] LABS: BASO % 0.9 % (0.0-2.0); EOS # 0.1 K/uL (0.0-0.7); EOS % 2.2 % (0.0-4.0); HEMATOCRIT 29.6 % (34.0-47.0); LYMPH # 1.1 K/uL (1.0-4.3); LYMPH % 30.2 % (20.0-40.0); MEAN CELL VOLUME 85.7 fL (81.0-99.0); MEAN CORPUSCULAR HEMOGLOBIN 27.2 pg (27.0-31.0); MEAN CORPUSCULAR HGB CONC 31.8 g/dL (33.0-37.0); MEAN PLATELET VOLUME 8.9 fL (7.2-11.7); MONO # 0.7 K/uL (0.0-0.8); MONO % 17.6 % (0.0-10.0); NRBC % 0.1 % (0.0-2.0); RED CELL DISTRIBUTION WIDTH 17.9 % (11.5-14.5); WHITE BLOOD COUNT 3.8 K/uL (4.8-10.8)
[2017-07-26 08:16] LABS: ALB/GLOB RATIO 0.8 (1.0-2.1); ALKALINE PHOSPHATASE 165 U/L (38-126); ALT/SGPT 37 U/L (9-52); AST/SGOT 34 U/L (14-36); BILIRUBIN,TOTAL 0.8 mg/dL (0.2-1.3); BLOOD UREA NITROGEN 36 mg/dL (7-17); CALCIUM 8.2 mg/dl (8.6-10.4); CARBON DIOXIDE 28 mmol/L (22-30); CHLORIDE 104 mmol/L (98-107); GFR AFRICAN-AMERICAN > 60; GLUCOSE,RANDOM 100 mg/dL (65-105); MAGNESIUM 1.7 mg/dL (1.6-2.3); PHOSPHOROUS 3.5 mg/dL (2.5-4.5); SODIUM 138 mmol/L (132-148); TOTAL PROTEIN 6.7 g/dL (6.3-8.3)
[2017-07-26] MEDS: Bacitracin Ointment 30 GM TUBE TOP SCH (09:39)
[2017-07-26] MEDS: Metoprolol Succinate 100 mg XL Tab PO SCH (09:40)
[2017-07-26] MEDS: Saccharomyces Boulardi 250 mg Cap PO SCH ×2 (09:41→17:48)
[2017-07-26] MEDS: Dakin's Topical 0.25%-Half Strength (480 ml) TOP SCH ×2 (09:41→17:54)
[2017-07-26] MEDS: Ammonium Lactate 12% Lotion (225 g) TOP SCH (09:41)
--- NOTE | 2017-07-26 10:58 | CP.PCM.PN ---
Subjective - Date & Time of Evaluation Date of Evaluation: 07/26/17 Time of Evaluation: 10:54 - Subjective Subjective: Podiatry progress Note- 87 year old female seen and evaluated at bedside for f/u of ulcerations to bilateral lower extremities. Reports sensitivity to wound R leg, denies any pain or discomfort the LLE. Patient denies of any recent f/n/v/c/sob/cp at this time. denies of any other pedal complains at this time. Objective - Vital Signs/Intake and Output Vital Signs (last 24 hours): Temp Pulse Resp BP Pulse Ox 97.5 F L 60 20 176/81 H 97 07/26/17 08:46 07/26/17 08:46 07/26/17 08:46 07/26/17 09:40 07/26/17 08:46 Intake and Output: 07/26/17 07/26/17 06:59 18:59 Intake Total 50 Balance 50 - Medications Medications: Current Medications Aspirin (Aspirin Chewable) 81 mg PO DAILY [facility] Last Admin: 07/26/17 09:40 Dose: 81 mg Bacitracin (Bacitracin) 30 gm TOP DAILY [facility] Last Admin: 07/26/17 09:39 Dose: 1 applic Dextrose (Dextrose 50% Inj) 0 ml IV STAT PRN; Protocol PRN Reason: Hypoglycemia Protocol Dextrose (Glutose 15) 0 gm PO ONCE PRN; Protocol PRN Reason: Hypoglycemia Protocol Famotidine (Pepcid) 20 mg PO BID [facility] Last Admin: 07/26/17 09:40 Dose: Not Given Furosemide (Lasix) 40 mg IVP DAILY [facility] Last Admin: 07/26/17 09:40 Dose: 40 mg Glucagon (Glucagen Diagnostic Kit) 0 mg IM STAT PRN; Protocol PRN Reason: Hypoglycemia Protocol Hydralazine HCl (Apresoline) 50 mg PO TID [facility] Last Admin: 07/26/17 09:40 Dose: 50 mg Hydrocortisone (Cortizone 1% Cream) 0 gm EXT BID PRN PRN Reason: Itching / Pruritus Last Admin: 07/20/17 17:46 Dose: 1 applic Tigecycline 50 mg/ Sodium (Chloride) 50 mls @ 100 mls/hr IVPB Q12H [facility] Last Admin: 07/26/17 00:15 Dose: 100 mls/hr Insulin Human Regular (Novolin R) 0 unit SC ACHS [facility] PRN Reason: Protocol Last Admin: 07/26/17 07:39 Dose: Not Given Isosorbide Mononitrate (Imdur) 60 mg PO DAILY [facility] Last Admin: 07/26/17 09:40 Dose: 60 mg Lactic Acid (Lac-Hydrin 12% Lotion (225 G)) 0 gm TOP DAILY [facility] Last Admin: 07/26/17 09:41 Dose: 1 applic Losartan Potassium (Cozaar) 100 mg PO DAILY [facility] Last Admin: 07/26/17 09:40 Dose: 100 mg Metoprolol Succinate (Toprol Xl) 100 mg PO DAILY [facility] Last Admin: 07/26/17 09:40 Dose: 100 mg Rivaroxaban (Xarelto) 20 mg PO DAILY [facility] Last Admin: 07/26/17 09:40 Dose: 20 mg Rosuvastatin Calcium (Crestor) 5 mg PO HS [facility] Last Admin: 07/25/17 22:13 Dose: 5 mg Saccharomyces Boulardii (Florastor) 250 mg PO BID [facility] Last Admin: 07/26/17 09:41 Dose: Not Given Sertraline HCl (Zoloft) 25 mg PO DAILY [facility] Last Admin: 07/26/17 09:40 Dose: 25 mg Sodium Hypochlorite (Dakins Solution 0.25%) 0 ml TOP BID [facility] Last Admin: 07/26/17 09:41 Dose: 1 applic Trazodone HCl (Desyrel) 25 mg PO HS [facility] Last Admin: 07/25/17 22:13 Dose: 25 mg - Labs Labs: 07/26/17 07:06 07/26/17 07:06 PT 13.3 SECONDS (9.7-12.2) H 07/17/17 22:25 INR 1.2 07/17/17 22:25 APTT 34 SECONDS (21-34) 07/17/17 22:25 - Constitutional Appears: Well, Non-toxic, No Acute Distress - Extremities Exam Extremities Exam: absent: Calf Tenderness Additional comments: Bilateral LE physical exam: VASC: DP pulses weakly palpable 1/4 b/l. PT pulses non-palpable b/l. Temperature gradient cool to cool b/l. CFT <3 seconds to digits x5 b/l. No increase in warmth noted to ulcerations x3. +1 pitting edema noted to bilateral lower extremity. DERM: Ulceration #1 noted to the medial aspect of left ankle measuring approximately 2.1 x 1.9 x 0.2 cm - noted to have granular base. Ulceration #2 noted to the medial aspect of right ankle measuring approximately 4.0 x 2.7 x 0.3 cm - noted to have a mixed fibrogranular base Ulceration #3 noted to the posterior aspect of lower 1/3 of right leg measuring approximately 2.6 x 2.2 x 0.1 cm - noted to have a granular base. All ulcers have no purulence, no drainage, no malodor, no erythema, no undermining, no tunneling. NEURO: Gross sensation diminished b/l. ORTHO: Tenderness to palpation to ulceration at posterior right leg. No tenderness to palpation ulcerations to bilateral medial ankles. Muscle strength 5/5 for all dorsiflexors, plantarflexors, inverters, and everters. Ankle joint ROM decreased b/l. 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 Martinez Chart, labs and vitals reviewed, afebrile, WBC @ 3.8 as of today Wounds cleansed with hydrogen peroxide and dressed with Dakin's soaked wet to dry 4x4 gauze and kerlix. Continue Q12 dressing changes - peroxide cleanse, Continue IV abx per medicine - Doxycycline 100mg IV Q12H stable per podiatry, will follow.
--- NOTE | 2017-07-26 11:25 | CP.PCM.PN ---
Subjective - Date & Time of Evaluation Date of Evaluation: 07/26/17 Time of Evaluation: 11:22 - Subjective Subjective: COVERING DR SEPULVEDA/JAMIE Patient denies bleeding or pain. Objective - Vital Signs/Intake and Output Vital Signs (last 24 hours): Temp Pulse Resp BP Pulse Ox 97.5 F L 60 20 176/81 H 97 07/26/17 08:46 07/26/17 08:46 07/26/17 08:46 07/26/17 09:40 07/26/17 08:46 Intake and Output: 07/26/17 07/26/17 06:59 18:59 Intake Total 50 Balance 50 - Medications Medications: Current Medications Aspirin (Aspirin Chewable) 81 mg PO DAILY [facility] Last Admin: 07/26/17 09:40 Dose: 81 mg Bacitracin (Bacitracin) 30 gm TOP DAILY [facility] Last Admin: 07/26/17 09:39 Dose: 1 applic Dextrose (Dextrose 50% Inj) 0 ml IV STAT PRN; Protocol PRN Reason: Hypoglycemia Protocol Dextrose (Glutose 15) 0 gm PO ONCE PRN; Protocol PRN Reason: Hypoglycemia Protocol Famotidine (Pepcid) 20 mg PO BID [facility] Last Admin: 07/26/17 09:40 Dose: Not Given Furosemide (Lasix) 40 mg IVP DAILY [facility] Last Admin: 07/26/17 09:40 Dose: 40 mg Glucagon (Glucagen Diagnostic Kit) 0 mg IM STAT PRN; Protocol PRN Reason: Hypoglycemia Protocol Hydralazine HCl (Apresoline) 50 mg PO TID [facility] Last Admin: 07/26/17 09:40 Dose: 50 mg Hydrocortisone (Cortizone 1% Cream) 0 gm EXT BID PRN PRN Reason: Itching / Pruritus Last Admin: 07/20/17 17:46 Dose: 1 applic Tigecycline 50 mg/ Sodium (Chloride) 50 mls @ 100 mls/hr IVPB Q12H [facility] Last Admin: 07/26/17 00:15 Dose: 100 mls/hr Insulin Human Regular (Novolin R) 0 unit SC ACHS [facility] PRN Reason: Protocol Last Admin: 07/26/17 07:39 Dose: Not Given Isosorbide Mononitrate (Imdur) 60 mg PO DAILY [facility] Last Admin: 07/26/17 09:40 Dose: 60 mg Lactic Acid (Lac-Hydrin 12% Lotion (225 G)) 0 gm TOP DAILY [facility] Last Admin: 07/26/17 09:41 Dose: 1 applic Losartan Potassium (Cozaar) 100 mg PO DAILY [facility] Last Admin: 07/26/17 09:40 Dose: 100 mg Metoprolol Succinate (Toprol Xl) 100 mg PO DAILY [facility] Last Admin: 07/26/17 09:40 Dose: 100 mg Rivaroxaban (Xarelto) 20 mg PO DAILY [facility] Last Admin: 07/26/17 09:40 Dose: 20 mg Rosuvastatin Calcium (Crestor) 5 mg PO HS [facility] Last Admin: 07/25/17 22:13 Dose: 5 mg Saccharomyces Boulardii (Florastor) 250 mg PO BID [facility] Last Admin: 07/26/17 09:41 Dose: Not Given Sertraline HCl (Zoloft) 25 mg PO DAILY [facility] Last Admin: 07/26/17 09:40 Dose: 25 mg Sodium Hypochlorite (Dakins Solution 0.25%) 0 ml TOP BID [facility] Last Admin: 07/26/17 09:41 Dose: 1 applic Trazodone HCl (Desyrel) 25 mg PO HS [facility] Last Admin: 07/25/17 22:13 Dose: 25 mg - Labs Labs: 07/26/17 07:06 07/26/17 07:06 PT 13.3 SECONDS (9.7-12.2) H 07/17/17 22:25 INR 1.2 07/17/17 22:25 APTT 34 SECONDS (21-34) 07/17/17 22:25 - Constitutional Appears: No Acute Distress - Head Exam Head Exam: ATRAUMATIC, NORMOCEPHALIC - Eye Exam Eye Exam: EOMI, PERRL - Respiratory Exam Respiratory Exam: NORMAL BREATHING PATTERN - Cardiovascular Exam Cardiovascular Exam: REGULAR RHYTHM - GI/Abdominal Exam GI & Abdominal Exam: Soft, Normal Bowel Sounds. absent: Guarding, Tenderness, Rebound Additional comments: Obese. Assessment and Plan (1) Occult blood in stools Assessment & Plan: Advise colonoscopy +/- EGD to work up blood loss when stable and patient/family agreeable. Monitor for overt bleeding or further drop in H/H. PPI prophylaxis. Status: Acute (2) Anemia Assessment & Plan: as above. Status: Active
--- NOTE | 2017-07-26 11:55 | CP.PCM.PN ---
Subjective - Date & Time of Evaluation Date of Evaluation: 07/26/17 Time of Evaluation: 11:35 - Subjective Subjective: Medical Attending Note Patient seen and examined this morning. Patient denies headache, denies chest pain, denies shortness of breathe, denies cough, denies abdominal pain, denies diarrhea, denies constipation, reports she is taking her medications, and has had her dressings changed with podiatry resident prior to my arrival. Patient refuses PICC line. I have told the patient she is recommended for IV Abx by the infectious disease doctor but refuses to listen, only wants to speak with podiatist. I have spoke with podiatry resident, Albina who will touch base with her colleague to help in regards to IV abx. Objective - Vital Signs/Intake and Output Vital Signs (last 24 hours): Temp Pulse Resp BP Pulse Ox 97.5 F L 60 20 176/81 H 97 07/26/17 08:46 07/26/17 08:46 07/26/17 08:46 07/26/17 09:40 07/26/17 08:46 Intake and Output: 07/26/17 07/26/17 06:59 18:59 Intake Total 50 Balance 50 - Medications Medications: Current Medications Aspirin (Aspirin Chewable) 81 mg PO DAILY [facility] Last Admin: 07/26/17 09:40 Dose: 81 mg Bacitracin (Bacitracin) 30 gm TOP DAILY [facility] Last Admin: 07/26/17 09:39 Dose: 1 applic Dextrose (Dextrose 50% Inj) 0 ml IV STAT PRN; Protocol PRN Reason: Hypoglycemia Protocol Dextrose (Glutose 15) 0 gm PO ONCE PRN; Protocol PRN Reason: Hypoglycemia Protocol Famotidine (Pepcid) 20 mg PO BID [facility] Last Admin: 07/26/17 09:40 Dose: Not Given Furosemide (Lasix) 40 mg IVP DAILY [facility] Last Admin: 07/26/17 09:40 Dose: 40 mg Glucagon (Glucagen Diagnostic Kit) 0 mg IM STAT PRN; Protocol PRN Reason: Hypoglycemia Protocol Hydralazine HCl (Apresoline) 50 mg PO TID [facility] Last Admin: 07/26/17 09:40 Dose: 50 mg Hydrocortisone (Cortizone 1% Cream) 0 gm EXT BID PRN PRN Reason: Itching / Pruritus Last Admin: 07/20/17 17:46 Dose: 1 applic Tigecycline 50 mg/ Sodium (Chloride) 50 mls @ 100 mls/hr IVPB Q12H [facility] Last Admin: 07/26/17 00:15 Dose: 100 mls/hr Insulin Human Regular (Novolin R) 0 unit SC ACHS [facility] PRN Reason: Protocol Last Admin: 07/26/17 07:39 Dose: Not Given Isosorbide Mononitrate (Imdur) 60 mg PO DAILY [facility] Last Admin: 07/26/17 09:40 Dose: 60 mg Lactic Acid (Lac-Hydrin 12% Lotion (225 G)) 0 gm TOP DAILY [facility] Last Admin: 07/26/17 09:41 Dose: 1 applic Losartan Potassium (Cozaar) 100 mg PO DAILY [facility] Last Admin: 07/26/17 09:40 Dose: 100 mg Metoprolol Succinate (Toprol Xl) 100 mg PO DAILY [facility] Last Admin: 07/26/17 09:40 Dose: 100 mg Rivaroxaban (Xarelto) 20 mg PO DAILY [facility] Last Admin: 07/26/17 09:40 Dose: 20 mg Rosuvastatin Calcium (Crestor) 5 mg PO HS [facility] Last Admin: 07/25/17 22:13 Dose: 5 mg Saccharomyces Boulardii (Florastor) 250 mg PO BID [facility] Last Admin: 07/26/17 09:41 Dose: Not Given Sertraline HCl (Zoloft) 25 mg PO DAILY [facility] Last Admin: 07/26/17 09:40 Dose: 25 mg Sodium Hypochlorite (Dakins Solution 0.25%) 0 ml TOP BID [facility] Last Admin: 07/26/17 09:41 Dose: 1 applic Trazodone HCl (Desyrel) 25 mg PO HS [facility] Last Admin: 07/25/17 22:13 Dose: 25 mg - Labs Labs: 07/26/17 07:06 07/26/17 07:06 PT 13.3 SECONDS (9.7-12.2) H 07/17/17 22:25 INR 1.2 07/17/17 22:25 APTT 34 SECONDS (21-34) 07/17/17 22:25 - Constitutional Appears: Older Than Stated Age - Head Exam Head Exam: NORMAL INSPECTION - Eye Exam Eye Exam: EOMI, PERRL - ENT Exam ENT Exam: Mucous Membranes Moist - Respiratory Exam Respiratory Exam: Clear to Ausculation Bilateral, NORMAL BREATHING PATTERN. absent: Rales, Rhonchi, Wheezes - Cardiovascular Exam Cardiovascular Exam: REGULAR RHYTHM, +S1, +S2 - GI/Abdominal Exam GI & Abdominal Exam: Soft, Normal Bowel Sounds. absent: Distended, Firm, Guarding, Rigid, Tenderness, Rebound - Extremities Exam Extremities Exam: Pedal Edema (improved) Additional comments: dressing over the heels bilateral--clean/dry/intact - Neurological Exam Neurological Exam: Alert, Awake Additional comments: remembers me, knows she is at the hospital Assessment and Plan - Assessment and Plan (Free Text) Assessment: Patient seen and examined at bedside. patient reports the manager shift resident came to clean her dressings today. Patient reports they did a good job. Patient reports she is taking her medications. Patient refuses PICC line with me again today to allow for IV abx. I spoke with Alibna Orr, Podiatry resident who will touch base with her co-resident at [facility] in regards to IV abx. Patient will only listen to her manager shift. She refuses my explanation. ID has recommended IV abx for MDRO organisms. This is pending her discharge to subacute rehab. Patient denies other complaints today. Assessment/Plan 1) Chronic Non-healing skin ulcers * Admit to med/surg * Pt with chronic PVD, Diabetes, chronic pedal edema * Podiatry, Dr. Mack on consult * Wound cultures obtained x3-->Follow-up * Wounds cleansed with hydrogen peroxide and dressed with DSD * Q12 dressing changes - peroxide cleanse, Dakin's soaked wet to dry 4x4 gauze , kerlix * Per medicine, Lasix 40mg IV timothy * Vascular surgery, Dr. Tai on consult * Patient refused CT angio of ileofemor runoff and continues to refuse daily * Infectious Disease, Dr Grimaldo * Tigecycline 50mg IV Q12h (active since 07/22/17) * Wound Cultures * 1st Culture: 07/18 Leg Right Morg Morganii Ss Morganii; Beta Hemolytic Strep Group B * 2nd Culture: 07/18: Proteus Mirabilis, Corynebacterium Species, Gram Negative Alexander * 3rd Culture: 07/18 Proteus Mirabilis, Beta hemolytic Strep Group B, Gram Negative Alexander * ID is recommending for IV Abx * Compression stockings * Nursing communication to keep legs elevated * Continued home Bacitracin, Lac-Hydrin 12% solution, * Lasix 40mg IV daily * Prior 07/10/16: no evidence of deep/superficial vein thrombosis of the right lower extremity w excellent venous flow. Normal venous flow noted in the left common femoral vein 2) History of CHF (diastolic dysfunction) * Patient is not being compliant on anti-hypertensives * Echocardiogram (07/22/17): dilated cardiac chambers, mild concentric LVH, systolic function is moderately impaired. EF: 40-45% moderate diastolic dysfunction. Elevated left atrial pressure. Grade III restrictive diastolic dysfunction. RV systolic function is moderately reduced. Moderate tricupsid regurgitation. Trace pericardial effusion. * Patient actively refuses follow up ECHO * CXR: Cardiomegaly, questionable small left effusion (wetread, f/u left effusion) * BNP: 2850 (previous admissions 7400, 1880) * Lasix 40mg IV daily * start Aspirin 81mg PO daily * start Crestor 5mg PO qHS * start Toprol XL 100mg PO daily * c/w Imdur 60mg PO daily * c/w Cozaar 100mg PO daily * Monitor daily weights * intake and outputs 3) History of Atrial fibrillation * EKG: Afib @ 94 bpm, no acute St/T wave changes * Xarelto 20mg PO Daily * Toprol XL 100mg PO daily * CHADS-2: score 4 pts (positive criteria: CHF, HTN, >75, Diabetes; 8.5% risk of thromboembolic event) 4) History of HTN * uncontrolled; patient refusing PO anti-hypertensives * Imdur 60mg PO Daily * Toprol XL 100mg PO daily * Cozaar 100mg PO daily * c/w Hydralazine 50mg PO TID * Monitor 5) History of Hyperlipidemia * No meds listed on chart * Lipid panel: T, Chol: 126, LDL; 59, HDL: 45 * Crestor 5mg POqHS 6) Type two DM * patient denies she has any history of diabetes; patient reports this is the first time she is being told she had diabetes; attempted to explain to the patient regarding implications of diabetes but she does not want to listen * No DM medications listed on residential med rec * [id number]: 8.3 * Changed diet to heart healthy, diabetic,1500 ML diet * Lipid panel: T, Chol: 126, LDL; 59, HDL: 45 * Accuchecks QAC and HS * Low dose RISS * Hypoglycemia protocol * [employer] referral * certified lactation educator referral 7) History of Depression * Zoloft 25mg PO Daily 8) Insomnia * Trazadone 25mg PO HS 9) Transaminitis * Monitor LFTS * Crestor 5mg POqHS * Order Hepatitis panel 10) Anemia of Chronic Disease * Iron: 27 low, TIBC: 313, percent iron: 9%, occult blood positive * B12: >1000 * Folate >20 * Ferritin: normal * Reticulocyte count: 2.0 * GI consult (/ [facility]/Dr. Brown) for positive stool occult blood 11) Prophylaxis * Xarelto 20mg PO Daily * SCDs contraindicated * Pepcid 20mg PO BID * pastoral care consult * Turn Q2 HR prevent sacral decubitus * PT eval: MATT Disposition: * GI recommends EGD/Colonoscopy when stable and patient agrees-->patient is not amenable at this time. will monitor H/H/ * f/u podiatry given patient only trusts podiatry for IV abx recommendation. She refuses to listen to me. * I spoke with Albina Orr, podiatry resident who will get in touch with her colleague at [facility] to see if Dr. Vail recommendation for IV abx. Patient only will listen to manager shift. Will coordinate for PICC line placement consent if patient is amenable * Will need to f/u ID for abx and length of abx if patient is amenable to PICC line
[2017-07-26] MEDS: traZODone 25 mg Tab PO SCH (21:30)
[2017-07-27] MEDS: (Novolin R) Insulin Human Regular 100 units/ml vial SC SCH ×4 (07:35→22:18)
[2017-07-27 08:05] LABS: BASO % 0.7 % (0.0-2.0); EOS # 0.1 K/uL (0.0-0.7); EOS % 1.5 % (0.0-4.0); HEMATOCRIT 28.2 % (34.0-47.0); LYMPH % 23.9 % (20.0-40.0); MEAN CORPUSCULAR HEMOGLOBIN 27.7 pg (27.0-31.0); MEAN CORPUSCULAR HGB CONC 32.2 g/dL (33.0-37.0); MEAN PLATELET VOLUME 8.9 fL (7.2-11.7); MONO # 0.6 K/uL (0.0-0.8); MONO % 13.9 % (0.0-10.0); NRBC % 0.1 % (0.0-2.0); RED CELL DISTRIBUTION WIDTH 18.2 % (11.5-14.5); WHITE BLOOD COUNT 4.2 K/uL (4.8-10.8)
[2017-07-27 08:28] LABS: ALB/GLOB RATIO 0.8 (1.0-2.1); ALKALINE PHOSPHATASE 158 U/L (38-126); ALT/SGPT 29 U/L (9-52); AST/SGOT 26 U/L (14-36); BILIRUBIN,TOTAL 0.8 mg/dL (0.2-1.3); BLOOD UREA NITROGEN 35 mg/dL (7-17); CALCIUM 8.2 mg/dl (8.6-10.4); CARBON DIOXIDE 27 mmol/L (22-30); CHLORIDE 105 mmol/L (98-107); GFR AFRICAN-AMERICAN > 60; GLUCOSE,RANDOM 113 mg/dL (65-105); MAGNESIUM 1.7 mg/dL (1.6-2.3); PHOSPHOROUS 3.3 mg/dL (2.5-4.5); POTASSIUM 4.2 mmol/L (3.6-5.2); SODIUM 138 mmol/L (132-148); TOTAL PROTEIN 6.3 g/dL (6.3-8.3)
[2017-07-27] MEDS: Dakin's Topical 0.25%-Half Strength (480 ml) TOP SCH ×3 (09:00→18:04)
[2017-07-27] MEDS: Bacitracin Ointment 30 GM TUBE TOP SCH (09:00)
[2017-07-27] MEDS: Ammonium Lactate 12% Lotion (225 g) TOP SCH (09:00)
[2017-07-27] MEDS: Metoprolol Succinate 100 mg XL Tab PO SCH (09:01)
[2017-07-27] MEDS: Saccharomyces Boulardi 250 mg Cap PO SCH ×3 (09:01→18:04)
--- NOTE | 2017-07-27 12:33 | CP.PCM.PN ---
<Elpidio Ramires - Last Filed: 07/27/17 12:31> Subjective - Date & Time of Evaluation Date of Evaluation: 07/27/17 Time of Evaluation: 12:34 - Subjective Subjective: PGY2 Note for Dr. Kirk patient seen and examined at bedside this AM; denies any current symptoms and is agreeable to get a PICC line put in tomorrow. She denies fevers/chills, AMADOR, CP, SOB, abdominal pain, N/V/D, dysuria/freq/urg, or lower extremity pain/ swelling. Objective - Vital Signs/Intake and Output Vital Signs (last 24 hours): Temp Pulse Resp BP Pulse Ox 98.6 F 71 20 178/99 H 97 07/27/17 09:59 07/27/17 09:59 07/27/17 09:59 07/27/17 09:59 07/27/17 09:59 Intake and Output: 07/27/17 07/27/17 06:59 18:59 Intake Total 850 Balance 850 - Medications Medications: Current Medications Aspirin (Aspirin Chewable) 81 mg PO DAILY [facility] Last Admin: 07/27/17 09:00 Dose: 81 mg Bacitracin (Bacitracin) 30 gm TOP DAILY [facility] Last Admin: 07/27/17 09:00 Dose: 1 applic Dextrose (Dextrose 50% Inj) 0 ml IV STAT PRN; Protocol PRN Reason: Hypoglycemia Protocol Dextrose (Glutose 15) 0 gm PO ONCE PRN; Protocol PRN Reason: Hypoglycemia Protocol Famotidine (Pepcid) 20 mg PO BID [facility] Last Admin: 07/27/17 09:01 Dose: Not Given Furosemide (Lasix) 40 mg IVP DAILY [facility] Last Admin: 07/27/17 09:01 Dose: 40 mg Glucagon (Glucagen Diagnostic Kit) 0 mg IM STAT PRN; Protocol PRN Reason: Hypoglycemia Protocol Hydralazine HCl (Apresoline) 50 mg PO TID [facility] Last Admin: 07/27/17 09:01 Dose: 50 mg Hydrocortisone (Cortizone 1% Cream) 0 gm EXT BID PRN PRN Reason: Itching / Pruritus Last Admin: 07/20/17 17:46 Dose: 1 applic Tigecycline 50 mg/ Sodium (Chloride) 50 mls @ 100 mls/hr IVPB Q12H [facility] Last Admin: 07/27/17 12:12 Dose: 100 mls/hr Insulin Human Regular (Novolin R) 0 unit SC ACHS [facility] PRN Reason: Protocol Last Admin: 07/27/17 11:45 Dose: Not Given Isosorbide Mononitrate (Imdur) 60 mg PO DAILY [facility] Last Admin: 07/27/17 09:00 Dose: 60 mg Lactic Acid (Lac-Hydrin 12% Lotion (225 G)) 0 gm TOP DAILY [facility] Last Admin: 07/27/17 09:00 Dose: 1 applic Losartan Potassium (Cozaar) 100 mg PO DAILY [facility] Last Admin: 07/27/17 09:00 Dose: 100 mg Metoprolol Succinate (Toprol Xl) 100 mg PO DAILY [facility] Last Admin: 07/27/17 09:01 Dose: 100 mg Rivaroxaban (Xarelto) 20 mg PO DAILY [facility] Last Admin: 07/27/17 09:01 Dose: 20 mg Rosuvastatin Calcium (Crestor) 5 mg PO HS [facility] Last Admin: 07/26/17 21:30 Dose: 5 mg Saccharomyces Boulardii (Florastor) 250 mg PO BID [facility] Last Admin: 07/27/17 09:01 Dose: Not Given Sertraline HCl (Zoloft) 25 mg PO DAILY [facility] Last Admin: 07/27/17 09:00 Dose: 25 mg Sodium Hypochlorite (Dakins Solution 0.25%) 0 ml TOP BID [facility] Last Admin: 07/27/17 09:00 Dose: 1 applic Trazodone HCl (Desyrel) 25 mg PO HS [facility] Last Admin: 07/26/17 21:30 Dose: 25 mg - Labs Labs: 07/27/17 07:45 07/27/17 07:45 PT 13.3 SECONDS (9.7-12.2) H 07/17/17 22:25 INR 1.2 07/17/17 22:25 APTT 34 SECONDS (21-34) 07/17/17 22:25 - Constitutional Appears: Non-toxic - Head Exam Head Exam: ATRAUMATIC - Eye Exam Eye Exam: EOMI Pupil Exam: PERRL - ENT Exam ENT Exam: Mucous Membranes Moist - Neck Exam Neck Exam: Full ROM - Respiratory Exam Respiratory Exam: Clear to Ausculation Bilateral - Cardiovascular Exam Cardiovascular Exam: REGULAR RHYTHM - GI/Abdominal Exam GI & Abdominal Exam: Soft - Neurological Exam Neurological Exam: Alert, Awake, Oriented x3 - Psychiatric Exam Psychiatric exam: Normal Affect - Skin Skin Exam: Warm Assessment and Plan - Assessment and Plan (Free Text) Assessment: 1) Chronic Non-healing skin ulcers; being managed currently * Admit to med/surg * Pt with chronic PVD, Diabetes, chronic pedal edema * Podiatry, Dr. Mack on consult * Wound cultures obtained x3-->Follow-up * Wounds cleansed with hydrogen peroxide and dressed with DSD * Q12 dressing changes - peroxide cleanse, Dakin's soaked wet to dry 4x4 gauze , kerlix * Per medicine, Lasix 40mg IV timothy * Vascular surgery, Dr. Tai on consult * Patient refused CT angio of ileofemor runoff and continues to refuse daily * Infectious Disease, Dr Grimaldo * Tigecycline 50mg IV Q12h (active since 07/22/17) * Wound Cultures * 1st Culture: 07/18 Leg Right Morg Morganii Ss Morganii; Beta Hemolytic Strep Group B * 2nd Culture: 07/18: Proteus Mirabilis, Corynebacterium Species, Gram Negative Alexander * 3rd Culture: 07/18 Proteus Mirabilis, Beta hemolytic Strep Group B, Gram Negative Alexander * ID is recommending for IV Abx * Compression stockings * Nursing communication to keep legs elevated * Continued home Bacitracin, Lac-Hydrin 12% solution, * Lasix 40mg IV daily * Prior 07/10/16: no evidence of deep/superficial vein thrombosis of the right lower extremity w excellent venous flow. Normal venous flow noted in the left common femoral vein 2) History of CHF (diastolic dysfunction);chronic * Patient is not being compliant on anti-hypertensives * Echocardiogram (07/22/17): dilated cardiac chambers, mild concentric LVH, systolic function is moderately impaired. EF: 40-45% moderate diastolic dysfunction. Elevated left atrial pressure. Grade III restrictive diastolic dysfunction. RV systolic function is moderately reduced. Moderate tricupsid regurgitation. Trace pericardial effusion. * Patient actively refuses follow up ECHO * CXR: Cardiomegaly, questionable small left effusion (wetread, f/u left effusion) * BNP: 2850 (previous admissions 7400, 1880) * Lasix 40mg IV daily * start Aspirin 81mg PO daily * start Crestor 5mg PO qHS * start Toprol XL 100mg PO daily * c/w Imdur 60mg PO daily * c/w Cozaar 100mg PO daily * Monitor daily weights * intake and outputs 3) History of Atrial fibrillation * EKG: Afib @ 94 bpm, no acute St/T wave changes * Xarelto 20mg PO Daily * Toprol XL 100mg PO daily * CHADS-2: score 4 pts (positive criteria: CHF, HTN, >75, Diabetes; 8.5% risk of thromboembolic event) 4) History of HTN * uncontrolled; patient refusing PO anti-hypertensives * Imdur 60mg PO Daily * Toprol XL 100mg PO daily * Cozaar 100mg PO daily * c/w Hydralazine 50mg PO TID * Monitor 5) History of Hyperlipidemia * No meds listed on chart * Lipid panel: T, Chol: 126, LDL; 59, HDL: 45 * Crestor 5mg POqHS 6) Type two DM * patient denies she has any history of diabetes; patient reports this is the first time she is being told she had diabetes; attempted to explain to the patient regarding implications of diabetes but she does not want to listen * No DM medications listed on [facility] med rec * [id number]: 8.3 * Changed diet to heart healthy, diabetic,1500 ML diet * Lipid panel: T, Chol: 126, LDL; 59, HDL: 45 * Accuchecks QAC and HS * Low dose RISS * Hypoglycemia protocol * Electrician Substation Supervisor referral * critical care educator referral 7) History of Depression * Zoloft 25mg PO Daily 8) Insomnia * Trazadone 25mg PO HS 9) Transaminitis; resolving * Monitor LFTS * Crestor 5mg POqHS * Hep panel ordered 07/27 next day AM; f/u results 10) Anemia of Chronic Disease * Iron: 27 low, TIBC: 313, percent iron: 9%, occult blood positive * B12: >1000 * Folate >20 * Ferritin: normal * Reticulocyte count: 2.0 * GI consult (/ Agustin/Dr. Brown) for positive stool occult blood 11) Prophylaxis * Xarelto 20mg PO Daily * SCDs contraindicated * Pepcid 20mg PO BID * pastoral care consult * Turn Q2 HR prevent sacral decubitus * PT eval: MATT Disposition: * GI recommends EGD/Colonoscopy when stable and patient agrees-->patient is not amenable at this time. will monitor H/H which have been stable for last week. will continue to monitor * f/u podiatry given patient only trusts podiatry for IV abx recommendation. She refuses to listen to me. * Dr. Kirk spoke with Albina Orr, podiatry resident who will get in touch with her colleague at [facility] to see if Dr. Vail recommendation for IV abx. Patient only will listen to education research analyst. patient has agreed to PICC line and consent is in chart * Will need to f/u ID for abx and length of abx if patient is amenable to PICC line <Uzma Kirk V - Last Filed: 07/27/17 22:13> Objective - Vital Signs/Intake and Output Vital Signs (last 24 hours): Temp Pulse Resp BP Pulse Ox 97.4 F L 62 20 160/67 H 98 07/27/17 17:01 07/27/17 17:01 07/27/17 17:01 07/27/17 17:01 07/27/17 17:01 Intake and Output: 07/27/17 07/28/17 18:59 06:59 Intake Total 530 Balance 530 - Medications Medications: Current Medications Aspirin (Aspirin Chewable) 81 mg PO DAILY [facility] Last Admin: 07/27/17 09:00 Dose: 81 mg Bacitracin (Bacitracin) 30 gm TOP DAILY [facility] Last Admin: 07/27/17 09:00 Dose: 1 applic Dextrose (Dextrose 50% Inj) 0 ml IV STAT PRN; Protocol PRN Reason: Hypoglycemia Protocol Dextrose (Glutose 15) 0 gm PO ONCE PRN; Protocol PRN Reason: Hypoglycemia Protocol Furosemide (Lasix) 40 mg IVP DAILY [facility] Last Admin: 07/27/17 09:01 Dose: 40 mg Glucagon (Glucagen Diagnostic Kit) 0 mg IM STAT PRN; Protocol PRN Reason: Hypoglycemia Protocol Hydralazine HCl (Apresoline) 50 mg PO TID [facility] Last Admin: 07/27/17 18:01 Dose: 50 mg Hydrocortisone (Cortizone 1% Cream) 0 gm EXT BID PRN PRN Reason: Itching / Pruritus Last Admin: 07/20/17 17:46 Dose: 1 applic Tigecycline 50 mg/ Sodium (Chloride) 50 mls @ 100 mls/hr IVPB Q12H [facility] Last Admin: 07/27/17 12:12 Dose: 100 mls/hr Insulin Human Regular (Novolin R) 0 unit SC ACHS [facility] PRN Reason: Protocol Last Admin: 07/27/17 17:32 Dose: 1 unit Isosorbide Mononitrate (Imdur) 60 mg PO DAILY [facility] Last Admin: 07/27/17 09:00 Dose: 60 mg Lactic Acid (Lac-Hydrin 12% Lotion (225 G)) 0 gm TOP DAILY [facility] Last Admin: 07/27/17 09:00 Dose: 1 applic Losartan Potassium (Cozaar) 100 mg PO DAILY [facility] Last Admin: 07/27/17 09:00 Dose: 100 mg Metoprolol Succinate (Toprol Xl) 100 mg PO DAILY [facility] Last Admin: 07/27/17 09:01 Dose: 100 mg Pantoprazole Sodium (Protonix Ec Tab) 40 mg PO DAILY [facility] Last Admin: 07/27/17 13:39 Dose: Not Given Rivaroxaban (Xarelto) 20 mg PO DAILY [facility] Last Admin: 07/27/17 09:01 Dose: 20 mg Rosuvastatin Calcium (Crestor) 5 mg PO HS [facility] Last Admin: 07/26/17 21:30 Dose: 5 mg Saccharomyces Boulardii (Florastor) 250 mg PO BID [facility] Last Admin: 07/27/17 18:04 Dose: Not Given Sertraline HCl (Zoloft) 25 mg PO DAILY [facility] Last Admin: 07/27/17 09:00 Dose: 25 mg Sodium Hypochlorite (Dakins Solution 0.25%) 0 ml TOP BID [facility] Last Admin: 07/27/17 18:04 Dose: 1 applic Trazodone HCl (Desyrel) 25 mg PO HS [facility] Last Admin: 07/26/17 21:30 Dose: 25 mg - Labs Labs: 07/27/17 07:45 07/27/17 07:45 PT 13.3 SECONDS (9.7-12.2) H 07/17/17 22:25 INR 1.2 07/17/17 22:25 APTT 34 SECONDS (21-34) 07/17/17 22:25 Attending/Attestation - Attestation I have personally seen and examined this patient.: Yes I have fully participated in the care of the patient.: Yes I have reviewed all pertinent clinical information, including history, physical exam and plan: Yes Notes (Text): Patient seen and examined this afternoon. Patient does not feel like eating lunch nor dinner. Patient reports she has headache, but refuses Tylenol when offered. I offered to shut her light in her room off to ease her headache but does not want. Patient was consented by my resident, Dr Joyce Kaur with the podiatry resident resident, with Dr. Zurita speaking with her through the phone. Patient denies other acute complaints. If patient allows for PICC line given she changes her mind every day, then hope to secure PICC line and recommendation for IV abxs. If not, will need to reach out to ID for PO alternatives. Patient refuses GI workup. Protonix is on board. Will increase hydralazine 100mg PO tid Patient is for possible discharge tomorrow, pending if she allows for PICC line tomorrow. Patient changes her mind every day in regards to any procedure/test and refuses. Assessment/Plan 1) Chronic Non-healing skin ulcers * Admit to med/surg * Pt with chronic PVD, Diabetes, chronic pedal edema * Podiatry, Dr. Mack on consult * Wound cultures obtained x3-->Follow-up * Wounds cleansed with hydrogen peroxide and dressed with DSD * Q12 dressing changes - peroxide cleanse, Dakin's soaked wet to dry 4x4 gauze , kerlix * Per medicine, Lasix 40mg IV timothy * Vascular surgery, Dr. Tai on consult * Patient refused CT angio of ileofemor runoff and continues to refuse daily * Infectious Disease, Dr Grimaldo * Tigecycline 50mg IV Q12h (active since 07/22/17) * Wound Cultures * 1st Culture: 07/18 Leg Right Morg Morganii Ss Morganii; Beta Hemolytic Strep Group B * 2nd Culture: 07/18: Proteus Mirabilis, Corynebacterium Species, Gram Negative Alexander * 3rd Culture: 07/18 Proteus Mirabilis, Beta hemolytic Strep Group B, Gram Negative Alexander * ID is recommending for IV Abx * Compression stockings * Nursing communication to keep legs elevated * Continued home Bacitracin, Lac-Hydrin 12% solution, * Lasix 40mg IV daily * Prior 07/10/16: no evidence of deep/superficial vein thrombosis of the right lower extremity w excellent venous flow. Normal venous flow noted in the left common femoral vein 2) History of CHF (chronic diastolic dysfunction) * Patient is not being compliant on anti-hypertensives * Echocardiogram (07/22/17): dilated cardiac chambers, mild concentric LVH, systolic function is moderately impaired. EF: 40-45% moderate diastolic dysfunction. Elevated left atrial pressure. Grade III restrictive diastolic dysfunction. RV systolic function is moderately reduced. Moderate tricupsid regurgitation. Trace pericardial effusion. * Patient actively refuses follow up ECHO * CXR: Cardiomegaly, questionable small left effusion (wetread, f/u left effusion) * BNP: 2850 (previous admissions 7400, 1880) * Lasix 40mg IV daily * start Aspirin 81mg PO daily * start Crestor 5mg PO qHS * start Toprol XL 100mg PO daily * c/w Imdur 60mg PO daily * c/w Cozaar 100mg PO daily * Monitor daily weights * intake and outputs 3) History of Atrial fibrillation * EKG: Afib @ 94 bpm, no acute St/T wave changes * Xarelto 20mg PO Daily * Toprol XL 100mg PO daily * CHADS-2: score 4 pts (positive criteria: CHF, HTN, >75, Diabetes; 8.5% risk of thromboembolic event) 4) History of HTN * uncontrolled; patient refusing PO anti-hypertensives * Imdur 60mg PO Daily * Toprol XL 100mg PO daily * Cozaar 100mg PO daily * Increase to Hydralazine 100mg PO TID * Monitor 5) History of Hyperlipidemia * No meds listed on chart * Lipid panel: T, Chol: 126, LDL; 59, HDL: 45 * Crestor 5mg POqHS 6) Type two DM * patient denies she has any history of diabetes; patient reports this is the first time she is being told she had diabetes; attempted to explain to the patient regarding implications of diabetes but she does not want to listen * No DM medications listed on [facility] med rec * [id number]: 8.3 * Changed diet to heart healthy, diabetic,1500 ML diet * Lipid panel: T, Chol: 126, LDL; 59, HDL: 45 * Accuchecks QAC and HS * Low dose RISS * Hypoglycemia protocol * Electrician Substation Supervisor referral * critical care educator referral 7) History of Depression * Zoloft 25mg PO Daily 8) Insomnia * Trazadone 25mg PO HS 9) Transaminitis * Monitor LFTS * Crestor 5mg POqHS * Order Hepatitis panel 10) Anemia of Chronic Disease * Iron: 27 low, TIBC: 313, percent iron: 9%, occult blood positive * B12: >1000 * Folate >20 * Ferritin: normal * Reticulocyte count: 2.0 * GI consult (/ Agustin/Dr. Brown) for positive stool occult blood * Refuses workup to r/o GI bleed * Will give iron supplements 11) Prophylaxis * Xarelto 20mg PO Daily * SCDs contraindicated * Protonix 40mg PO day * pastoral care consult * Turn Q2 HR prevent sacral decubitus * PT eval: MATT Disposition: * GI recommends EGD/Colonoscopy--Patient refusing workup; monitor H/H; started on protonix 40mg PO daily * Patient was consented for PICC line paramedical aide, Resident Kaur with podiatry resident on 07/26--->will need to f/u ID for abx and length of abx if patient is amenable to PICC line or alternative to PO * Possible discharge tomorrow if above completed
--- NOTE | 2017-07-27 12:51 | CP.PCM.PN ---
Subjective - Date & Time of Evaluation Date of Evaluation: 07/27/17 Time of Evaluation: 12:49 - Subjective Subjective: COVERING DR SEPULVEDA/JAMIE No overt bleeding. Scheduled for PICC line. Family not agreeable to GI work up at present. H/H unchanged. Objective - Vital Signs/Intake and Output Vital Signs (last 24 hours): Temp Pulse Resp BP Pulse Ox 98.6 F 71 20 178/99 H 97 07/27/17 09:59 07/27/17 09:59 07/27/17 09:59 07/27/17 09:59 07/27/17 09:59 Intake and Output: 07/27/17 07/27/17 06:59 18:59 Intake Total 850 Balance 850 - Medications Medications: Current Medications Aspirin (Aspirin Chewable) 81 mg PO DAILY [facility] Last Admin: 07/27/17 09:00 Dose: 81 mg Bacitracin (Bacitracin) 30 gm TOP DAILY [facility] Last Admin: 07/27/17 09:00 Dose: 1 applic Dextrose (Dextrose 50% Inj) 0 ml IV STAT PRN; Protocol PRN Reason: Hypoglycemia Protocol Dextrose (Glutose 15) 0 gm PO ONCE PRN; Protocol PRN Reason: Hypoglycemia Protocol Famotidine (Pepcid) 20 mg PO BID [facility] Last Admin: 07/27/17 09:01 Dose: Not Given Furosemide (Lasix) 40 mg IVP DAILY [facility] Last Admin: 07/27/17 09:01 Dose: 40 mg Glucagon (Glucagen Diagnostic Kit) 0 mg IM STAT PRN; Protocol PRN Reason: Hypoglycemia Protocol Hydralazine HCl (Apresoline) 50 mg PO TID [facility] Last Admin: 07/27/17 09:01 Dose: 50 mg Hydrocortisone (Cortizone 1% Cream) 0 gm EXT BID PRN PRN Reason: Itching / Pruritus Last Admin: 07/20/17 17:46 Dose: 1 applic Tigecycline 50 mg/ Sodium (Chloride) 50 mls @ 100 mls/hr IVPB Q12H [facility] Last Admin: 07/27/17 12:12 Dose: 100 mls/hr Insulin Human Regular (Novolin R) 0 unit SC ACHS [facility] PRN Reason: Protocol Last Admin: 07/27/17 11:45 Dose: Not Given Isosorbide Mononitrate (Imdur) 60 mg PO DAILY [facility] Last Admin: 07/27/17 09:00 Dose: 60 mg Lactic Acid (Lac-Hydrin 12% Lotion (225 G)) 0 gm TOP DAILY [facility] Last Admin: 07/27/17 09:00 Dose: 1 applic Losartan Potassium (Cozaar) 100 mg PO DAILY [facility] Last Admin: 07/27/17 09:00 Dose: 100 mg Metoprolol Succinate (Toprol Xl) 100 mg PO DAILY [facility] Last Admin: 07/27/17 09:01 Dose: 100 mg Rivaroxaban (Xarelto) 20 mg PO DAILY [facility] Last Admin: 07/27/17 09:01 Dose: 20 mg Rosuvastatin Calcium (Crestor) 5 mg PO HS [facility] Last Admin: 07/26/17 21:30 Dose: 5 mg Saccharomyces Boulardii (Florastor) 250 mg PO BID [facility] Last Admin: 07/27/17 09:01 Dose: Not Given Sertraline HCl (Zoloft) 25 mg PO DAILY [facility] Last Admin: 07/27/17 09:00 Dose: 25 mg Sodium Hypochlorite (Dakins Solution 0.25%) 0 ml TOP BID [facility] Last Admin: 07/27/17 09:00 Dose: 1 applic Trazodone HCl (Desyrel) 25 mg PO HS [facility] Last Admin: 07/26/17 21:30 Dose: 25 mg - Labs Labs: 07/27/17 07:45 07/27/17 07:45 PT 13.3 SECONDS (9.7-12.2) H 07/17/17 22:25 INR 1.2 07/17/17 22:25 APTT 34 SECONDS (21-34) 07/17/17 22:25 - Constitutional Appears: No Acute Distress - Respiratory Exam Respiratory Exam: NORMAL BREATHING PATTERN - Cardiovascular Exam Cardiovascular Exam: REGULAR RHYTHM - GI/Abdominal Exam GI & Abdominal Exam: Soft, Normal Bowel Sounds. absent: Tenderness Assessment and Plan (1) Occult blood in stools Assessment & Plan: No overt bleeding. GI work up to be scheduled when/if family agreeable. Monitor for active bleeding or further drop in H/H. Protonix advised. Status: Acute (2) Anemia Assessment & Plan: as above Status: Active
--- NOTE | 2017-07-27 12:56 | CP.PCM.PN ---
Subjective - Date & Time of Evaluation Date of Evaluation: 07/27/17 Time of Evaluation: 12:54 - Subjective Subjective: Podiatry progress Note- 87 year old female seen and evaluated at bedside for f/u of ulcerations to bilateral lower extremities. Reports sensitivity to wound R leg, denies any pain or discomfort the LLE. Patient denies of any recent f/n/v/c/sob/cp at this time. Patient states that she denied of PICC line placement yesterday even after talking to multiple doctors. denies of any other pedal complains at this time. Objective - Vital Signs/Intake and Output Vital Signs (last 24 hours): Temp Pulse Resp BP Pulse Ox 98.6 F 71 20 178/99 H 97 07/27/17 09:59 07/27/17 09:59 07/27/17 09:59 07/27/17 09:59 07/27/17 09:59 Intake and Output: 07/27/17 07/27/17 06:59 18:59 Intake Total 850 Balance 850 - Medications Medications: Current Medications Aspirin (Aspirin Chewable) 81 mg PO DAILY [facility] Last Admin: 07/27/17 09:00 Dose: 81 mg Bacitracin (Bacitracin) 30 gm TOP DAILY [facility] Last Admin: 07/27/17 09:00 Dose: 1 applic Dextrose (Dextrose 50% Inj) 0 ml IV STAT PRN; Protocol PRN Reason: Hypoglycemia Protocol Dextrose (Glutose 15) 0 gm PO ONCE PRN; Protocol PRN Reason: Hypoglycemia Protocol Famotidine (Pepcid) 20 mg PO BID [facility] [place] Last Admin: 07/27/17 09:01 Dose: Not Given Furosemide (Lasix) 40 mg IVP DAILY [facility] Last Admin: 07/27/17 09:01 Dose: 40 mg Glucagon (Glucagen Diagnostic Kit) 0 mg IM STAT PRN; Protocol PRN Reason: Hypoglycemia Protocol Hydralazine HCl (Apresoline) 50 mg PO TID [facility] Last Admin: 07/27/17 09:01 Dose: 50 mg Hydrocortisone (Cortizone 1% Cream) 0 gm EXT BID PRN PRN Reason: Itching / Pruritus Last Admin: 07/20/17 17:46 Dose: 1 applic Tigecycline 50 mg/ Sodium (Chloride) 50 mls @ 100 mls/hr IVPB Q12H [facility] Last Admin: 07/27/17 12:12 Dose: 100 mls/hr Insulin Human Regular (Novolin R) 0 unit SC ACHS [facility] PRN Reason: Protocol Last Admin: 07/27/17 11:45 Dose: Not Given Isosorbide Mononitrate (Imdur) 60 mg PO DAILY [facility] [place] Last Admin: 07/27/17 09:00 Dose: 60 mg Lactic Acid (Lac-Hydrin 12% Lotion (225 G)) 0 gm TOP DAILY [facility] [place] Last Admin: 07/27/17 09:00 Dose: 1 applic Losartan Potassium (Cozaar) 100 mg PO DAILY [facility] [place] Last Admin: 07/27/17 09:00 Dose: 100 mg Metoprolol Succinate (Toprol Xl) 100 mg PO DAILY [facility] [place] Last Admin: 07/27/17 09:01 Dose: 100 mg Rivaroxaban (Xarelto) 20 mg PO DAILY [facility] [place] Last Admin: 07/27/17 09:01 Dose: 20 mg Rosuvastatin Calcium (Crestor) 5 mg PO HS [facility] Last Admin: 07/26/17 21:30 Dose: 5 mg Saccharomyces Boulardii (Florastor) 250 mg PO BID [facility] Last Admin: 07/27/17 09:01 Dose: Not Given Sertraline HCl (Zoloft) 25 mg PO DAILY [facility] Last Admin: 07/27/17 09:00 Dose: 25 mg Sodium Hypochlorite (Dakins Solution 0.25%) 0 ml TOP BID [facility] Last Admin: 07/27/17 09:00 Dose: 1 applic Trazodone HCl (Desyrel) 25 mg PO HS [facility] Last Admin: 07/26/17 21:30 Dose: 25 mg - Labs Labs: 07/27/17 07:45 07/27/17 07:45 PT 13.3 SECONDS (9.7-12.2) H 07/17/17 22:25 INR 1.2 07/17/17 22:25 APTT 34 SECONDS (21-34) 07/17/17 22:25 - Constitutional Appears: Well, Non-toxic, No Acute Distress - Extremities Exam Extremities Exam: absent: Calf Tenderness Additional comments: Dressing on bilateral feet is clean, dry and intact. No strike through or drainage noted through the dressing. 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 Martinez Chart, labs and vitals reviewed, afebrile, WBC @ 4.2 as of today Continue Q12 dressing changes - peroxide cleanse - Spoke to the nurse for dressing change for the evening Continue IV abx per medicine - Doxycycline 100mg IV Q12H stable per podiatry, will follow.
[2017-07-27] MEDS: Pantoprazole 40 mg EC Tab PO SCH (13:39)
--- NOTE | 2017-07-27 17:22 | CP.PCM.PN ---
Subjective - Date & Time of Evaluation Date of Evaluation: 07/27/17 Time of Evaluation: 07:00 - Subjective Subjective: refusing gi work up iv rx in progress afebrile alert wounds dry Objective - Vital Signs/Intake and Output Vital Signs (last 24 hours): Temp Pulse Resp BP Pulse Ox 97.4 F L 62 20 160/67 H 98 07/27/17 17:01 07/27/17 17:01 07/27/17 17:01 07/27/17 17:01 07/27/17 17:01 Intake and Output: 07/27/17 07/27/17 06:59 18:59 Intake Total 850 530 Balance 850 530 - Medications Medications: Current Medications Aspirin (Aspirin Chewable) 81 mg PO DAILY [facility] Last Admin: 07/27/17 09:00 Dose: 81 mg Bacitracin (Bacitracin) 30 gm TOP DAILY [facility] Last Admin: 07/27/17 09:00 Dose: 1 applic Dextrose (Dextrose 50% Inj) 0 ml IV STAT PRN; Protocol PRN Reason: Hypoglycemia Protocol Dextrose (Glutose 15) 0 gm PO ONCE PRN; Protocol PRN Reason: Hypoglycemia Protocol Furosemide (Lasix) 40 mg IVP DAILY [facility] Last Admin: 07/27/17 09:01 Dose: 40 mg Glucagon (Glucagen Diagnostic Kit) 0 mg IM STAT PRN; Protocol PRN Reason: Hypoglycemia Protocol Hydralazine HCl (Apresoline) 50 mg PO TID [facility] Last Admin: 07/27/17 13:40 Dose: 50 mg Hydrocortisone (Cortizone 1% Cream) 0 gm EXT BID PRN PRN Reason: Itching / Pruritus Last Admin: 07/20/17 17:46 Dose: 1 applic Tigecycline 50 mg/ Sodium (Chloride) 50 mls @ 100 mls/hr IVPB Q12H [facility] Last Admin: 07/27/17 12:12 Dose: 100 mls/hr Insulin Human Regular (Novolin R) 0 unit SC ACHS [facility] PRN Reason: Protocol Last Admin: 07/27/17 11:45 Dose: Not Given Isosorbide Mononitrate (Imdur) 60 mg PO DAILY [facility] Last Admin: 07/27/17 09:00 Dose: 60 mg Lactic Acid (Lac-Hydrin 12% Lotion (225 G)) 0 gm TOP DAILY [facility] Last Admin: 07/27/17 09:00 Dose: 1 applic Losartan Potassium (Cozaar) 100 mg PO DAILY [facility] Last Admin: 07/27/17 09:00 Dose: 100 mg Metoprolol Succinate (Toprol Xl) 100 mg PO DAILY [facility] Last Admin: 07/27/17 09:01 Dose: 100 mg Pantoprazole Sodium (Protonix Ec Tab) 40 mg PO DAILY [facility] Last Admin: 07/27/17 13:39 Dose: Not Given Rivaroxaban (Xarelto) 20 mg PO DAILY [facility] Last Admin: 07/27/17 09:01 Dose: 20 mg Rosuvastatin Calcium (Crestor) 5 mg PO HS [facility] Last Admin: 07/26/17 21:30 Dose: 5 mg Saccharomyces Boulardii (Florastor) 250 mg PO BID [facility] Last Admin: 07/27/17 09:01 Dose: Not Given Sertraline HCl (Zoloft) 25 mg PO DAILY [facility] Last Admin: 07/27/17 09:00 Dose: 25 mg Sodium Hypochlorite (Dakins Solution 0.25%) 0 ml TOP BID [facility] Last Admin: 07/27/17 09:00 Dose: 1 applic Trazodone HCl (Desyrel) 25 mg PO [facility] Last Admin: 07/26/17 21:30 Dose: 25 mg - Labs Labs: 07/27/17 07:45 07/27/17 07:45 PT 13.3 SECONDS (9.7-12.2) H 07/17/17 22:25 INR 1.2 07/17/17 22:25 APTT 34 SECONDS (21-34) 07/17/17 22:25 - Constitutional Appears: Non-toxic, Chronically Ill - Head Exam Head Exam: NORMOCEPHALIC - Eye Exam Eye Exam: PERRL - ENT Exam ENT Exam: Mucous Membranes Dry - Neck Exam Neck Exam: absent: Lymphadenopathy - Respiratory Exam Respiratory Exam: Decreased Breath Sounds - Cardiovascular Exam Cardiovascular Exam: REGULAR RHYTHM - GI/Abdominal Exam GI & Abdominal Exam: Distended, Soft - Rectal Exam Rectal Exam: Deferred - Exam Exam: NORMAL INSPECTION - Extremities Exam Extremities Exam: absent: Pedal Edema - Back Exam Back Exam: absent: CVA tenderness (L), CVA tenderness (R) - Neurological Exam Neurological Exam: Alert, Awake, Oriented x3 Assessment and Plan (1) Atrial fibrillation Status: Acute (2) CHF (congestive heart failure) Status: Acute (3) Diabetes Status: Acute (4) Skin ulcer Status: Acute (5) Anemia Status: Active (6) Diabetes mellitus type 2 Status: Active (7) Dyslipidemia Status: Active (8) Cellulitis Status: Acute
[2017-07-27] MEDS: traZODone 25 mg Tab PO SCH (22:17)
[2017-07-28] MEDS: (Novolin R) Insulin Human Regular 100 units/ml vial SC SCH ×4 (08:06→22:54)
[2017-07-28 08:17] LABS: BASO # 0.1 K/uL (0.0-0.2); BASO % 1.5 % (0.0-2.0); EOS # 0.1 K/uL (0.0-0.7); EOS % 1.4 % (0.0-4.0); LYMPH # 1.1 K/uL (1.0-4.3); LYMPH % 28.8 % (20.0-40.0); MEAN CELL VOLUME 85.6 fL (81.0-99.0); MEAN CORPUSCULAR HEMOGLOBIN 28.2 pg (27.0-31.0); MEAN PLATELET VOLUME 9.1 fL (7.2-11.7); MONO # 0.5 K/uL (0.0-0.8); NRBC % 0.1 % (0.0-2.0); RED CELL DISTRIBUTION WIDTH 18.1 % (11.5-14.5); WHITE BLOOD COUNT 3.8 K/uL (4.8-10.8)
[2017-07-28 08:42] LABS: ALKALINE PHOSPHATASE 147 U/L (38-126); ALT/SGPT 30 U/L (9-52); AST/SGOT 25 U/L (14-36); BILIRUBIN,TOTAL 0.6 mg/dL (0.2-1.3); BLOOD UREA NITROGEN 30 mg/dL (7-17); CALCIUM 8.2 mg/dl (8.6-10.4); CARBON DIOXIDE 29 mmol/L (22-30); CHLORIDE 105 mmol/L (98-107); GFR AFRICAN-AMERICAN > 60; GLUCOSE,RANDOM 117 mg/dL (65-105); MAGNESIUM 1.8 mg/dL (1.6-2.3); PHOSPHOROUS 3.3 mg/dL (2.5-4.5); POTASSIUM 4.2 mmol/L (3.6-5.2); SODIUM 141 mmol/L (132-148); TOTAL PROTEIN 7.1 g/dL (6.3-8.3)
[2017-07-28 08:44] LABS: ALB/GLOB RATIO 0.6 (1.0-2.1)
[2017-07-28] MEDS: Metoprolol Succinate 100 mg XL Tab PO SCH (10:03)
[2017-07-28] MEDS: Saccharomyces Boulardi 250 mg Cap PO SCH ×2 (10:03→17:19)
[2017-07-28] MEDS: Pantoprazole 40 mg EC Tab PO SCH (10:04)
[2017-07-28] MEDS: Ammonium Lactate 12% Lotion (225 g) TOP SCH (10:09)
[2017-07-28] MEDS: Dakin's Topical 0.25%-Half Strength (480 ml) TOP SCH ×3 (10:09→17:19)
[2017-07-28] MEDS: Bacitracin Ointment 30 GM TUBE TOP SCH (13:42)
--- NOTE | 2017-07-28 14:25 | CP.PCM.PN ---
<Maryan Armstrong - Last Filed: 07/28/17 14:30> Subjective - Date & Time of Evaluation Date of Evaluation: 07/28/17 Time of Evaluation: 14:22 - Subjective Subjective: Progress note for Dr. Bowen Patient did not seem amenable to getting PICC line today. Reached out to Podiatry resident and Dr. Mack to speak to patient about the importance of getting PICC line in order [facility]. Patient did not agree to CT angio as well. Patient denies Fever, chills, shortness of breath. Patient states she's doing well and she does not think she needs a PICC ine. Objective - Vital Signs/Intake and Output Vital Signs (last 24 hours): Temp Pulse Resp BP Pulse Ox 97.6 F 67 20 179/99 H 97 07/28/17 00:00 07/28/17 05:00 07/28/17 05:00 07/28/17 10:04 07/28/17 05:00 Intake and Output: 07/28/17 07/28/17 06:59 18:59 Intake Total 800 Output Total 1 Balance 799 - Medications Medications: Current Medications Aspirin (Aspirin Chewable) 81 mg PO DAILY [facility] Last Admin: 07/28/17 10:03 Dose: 81 mg Bacitracin (Bacitracin) 30 gm TOP DAILY [facility] Last Admin: 07/28/17 13:42 Dose: 1 applic Dextrose (Dextrose 50% Inj) 0 ml IV STAT PRN; Protocol PRN Reason: Hypoglycemia Protocol Dextrose (Glutose 15) 0 gm PO ONCE PRN; Protocol PRN Reason: Hypoglycemia Protocol Ferrous Sulfate (Feosol) 325 mg PO TID [facility] Last Admin: 07/28/17 14:11 Dose: 325 mg Furosemide (Lasix) 40 mg IVP DAILY [facility] Last Admin: 07/28/17 10:04 Dose: 40 mg Glucagon (Glucagen Diagnostic Kit) 0 mg IM STAT PRN; Protocol PRN Reason: Hypoglycemia Protocol Hydralazine HCl (Apresoline) 100 mg PO TID [facility] Last Admin: 07/28/17 14:11 Dose: 100 mg Hydrocortisone (Cortizone 1% Cream) 0 gm EXT BID PRN PRN Reason: Itching / Pruritus Last Admin: 07/20/17 17:46 Dose: 1 applic Tigecycline 50 mg/ Sodium (Chloride) 50 mls @ 100 mls/hr IVPB Q12H [facility] Last Admin: 07/28/17 12:35 Dose: 100 mls/hr Insulin Human Regular (Novolin R) 0 unit SC ACHS [facility] PRN Reason: Protocol Last Admin: 07/28/17 12:31 Dose: Not Given Isosorbide Mononitrate (Imdur) 60 mg PO DAILY [facility] Last Admin: 07/28/17 10:04 Dose: 60 mg Lactic Acid (Lac-Hydrin 12% Lotion (225 G)) 0 gm TOP DAILY [facility] Last Admin: 07/28/17 10:09 Dose: 1 applic Losartan Potassium (Cozaar) 100 mg PO DAILY [facility] Last Admin: 07/28/17 10:03 Dose: 100 mg Metoprolol Succinate (Toprol Xl) 100 mg PO DAILY [facility] Last Admin: 07/28/17 10:03 Dose: 100 mg Pantoprazole Sodium (Protonix Ec Tab) 40 mg PO DAILY [facility] Last Admin: 07/28/17 10:04 Dose: 40 mg Rivaroxaban (Xarelto) 20 mg PO DAILY [facility] Last Admin: 07/28/17 10:03 Dose: 20 mg Rosuvastatin Calcium (Crestor) 5 mg PO HS [facility] Last Admin: 07/27/17 22:17 Dose: 5 mg Saccharomyces Boulardii (Florastor) 250 mg PO BID [facility] Last Admin: 07/28/17 10:03 Dose: 250 mg Sertraline HCl (Zoloft) 25 mg PO DAILY [facility] Last Admin: 07/28/17 10:04 Dose: 25 mg Sodium Hypochlorite (Dakins Solution 0.25%) 0 ml TOP BID [facility] Last Admin: 07/28/17 10:10 Dose: 1 applic Trazodone HCl (Desyrel) 25 mg PO HS [facility] Last Admin: 07/27/17 22:17 Dose: Not Given - Labs Labs: 07/28/17 08:00 07/28/17 08:00 PT 13.3 SECONDS (9.7-12.2) H 07/17/17 22:25 INR 1.2 07/17/17 22:25 APTT 34 SECONDS (21-34) 07/17/17 22:25 - Constitutional Appears: Non-toxic - Head Exam Head Exam: NORMAL INSPECTION - Eye Exam Eye Exam: EOMI, Normal appearance - ENT Exam ENT Exam: Mucous Membranes Moist - Neck Exam Neck Exam: Full ROM - Respiratory Exam Respiratory Exam: NORMAL BREATHING PATTERN. absent: Decreased Breath Sounds, Wheezes, Stridor - Cardiovascular Exam Cardiovascular Exam: Irregular Rhythm, +S1, +S2 - GI/Abdominal Exam GI & Abdominal Exam: Soft. absent: Tenderness - Extremities Exam Extremities Exam: Pedal Edema. absent: Calf Tenderness Additional comments: Patient has ankles wrapped. dressings c/d/i. changed by podiatry - Neurological Exam Neurological Exam: Alert, Awake - Psychiatric Exam Psychiatric exam: Normal Affect, Normal Mood - Skin Skin Exam: Dry Assessment and Plan - Assessment and Plan (Free Text) Assessment: Chronic Non-healing skin ulcers Admitted to med/surg Pt with chronic PVD, Diabetes, chronic pedal edema Dr Tai, Vascular Surgeon, consulted Dr. Mack, Podiatry, consulted: - Wounds cleansed with hydrogen peroxide and dressed with DSD - Q12 dressing changes - peroxide cleanse, Dakin's soaked wet to dry 4x4 gauze, kerlix Compression stockings Nursing communication to keep legs elevated Continued home Bacitracin, Lac-Hydrin 12% solution Gram Stain/Wound Culture Right Leg 07/18: No polymorphonuclear WBCs observed, No organisms seen Gram Stain/Wound Culture Other Source 07/18: Few polymorphonuclear WBCs, Few gram negative rods Infectious Disease consult: Dr Grimaldo Tigecycline 50mg IV Q12h (active since 07/22/17) Meds: Lasix 40mg IV daily Doxy 100mg IV Q12H Floraster 250mg PO Daily Imagin/16 CXR: prominent diffuse increased interstitial lung markings suggesting moderate venous congestion. consolidative changes at left lung base with small left pleural effusion. scattered nodular densities in upper lung zones with left greater than right 07/18 Lower extremity duplex shows PVD Right: mid to distal femoral, posterior tibial and peroneal veins were not visualized due to severe edema. no evidence of DVT or superficial vein thrombosis of veins. pulsatile venous flow was noted in the major veins. Left: mid to distal femoral, posterior tibial and peroneal veins were not visualized due to severe edema. no evidence of deep or superficial vein thrombosis for veins clearly visualized in left lower extremity. pulsatile flow noted in major veins CHF (diastolic dysfunction) 07/18 CT Angio of ileofem runoff refused by patient, stated she will think about getting scan tomorrow 07/19 07/21 patient continues to state she will consider CTA of ileofemoral runoff. Diastolic CHF history ECHO (03/11/14): LV EF 60%, reversible restrictive diastolic dysfunction - pt refusing follow up ECHO BNP: 2850 (previous admissions 7400, 1880) 07/22 Echo: EF 45.1%, mild concentric left venricular hypertrophy. moderate diastolic dysfunction. grade III restrictive diastolic dysfunction, right ventricular systolic function is moderately reduced. Atrial fibrillation EKG: Afib @ 94 bpm, no acute St/T wave changes Xarelto 20mg PO Daily Metoprolol 50mg PO Daily CHADS-2: score 4 pts (positive criteria: CHF, HTN, >75, Diabetes; 8.5% risk of thromboembolic event) HTN BP elevated at admission HOLD home Norvasc 5mg PO Daily due to peripheral edema Imdur 60mg PO Daily Toprol XL 100mg PO daily Cozaar 100mg PO daily c/w Hydralazine 50mg PO TID Monitor Bitals Hyperlipidemia, no home meds 07/20 lipid panel TG 56 Cholesterol 126 LDL 59 HDL 45 T2DM No DM medications listed on [facility] rec Accuchecks FORTUNATO Hypoglycemia protocol Diabetic education A1C 07/18: 8.3 Depression Zoloft 25mg PO Daily Insomnia Trazadone 50mg PO HS Transaminitis, downtrending AST/ALT 38/40 Monitor Diet: Heart healthy diet Prophylaxis Xarelto 20mg PO Daily SCDs contraindicated Pepcid 20mg PO BID Pastoral Care - spiritual support Turn reposition every Q2H Maryan Armstrong PGY1 <Yonatan Bowen - Last Filed: 07/28/17 21:16> Objective - Vital Signs/Intake and Output Vital Signs (last 24 hours): Temp Pulse Resp BP Pulse Ox 97.4 F L 64 20 151/95 H 98 07/28/17 15:35 07/28/17 15:35 07/28/17 15:35 07/28/17 15:35 07/28/17 15:35 Intake and Output: 07/28/17 07/29/17 18:59 06:59 Intake Total 530 Balance 530 - Medications Medications: Current Medications Aspirin (Aspirin Chewable) 81 mg PO DAILY [facility] Last Admin: 07/28/17 10:03 Dose: 81 mg Bacitracin (Bacitracin) 30 gm TOP DAILY [facility] Last Admin: 07/28/17 13:42 Dose: 1 applic Dextrose (Dextrose 50% Inj) 0 ml IV STAT PRN; Protocol PRN Reason: Hypoglycemia Protocol Dextrose (Glutose 15) 0 gm PO ONCE PRN; Protocol PRN Reason: Hypoglycemia Protocol Ferrous Sulfate (Feosol) 325 mg PO TID [facility] Last Admin: 07/28/17 17:20 Dose: 325 mg Furosemide (Lasix) 40 mg IVP DAILY [facility] Last Admin: 07/28/17 10:04 Dose: 40 mg Glucagon (Glucagen Diagnostic Kit) 0 mg IM STAT PRN; Protocol PRN Reason: Hypoglycemia Protocol Hydralazine HCl (Apresoline) 100 mg PO TID [facility] Last Admin: 07/28/17 17:18 Dose: 100 mg Hydrocortisone (Cortizone 1% Cream) 0 gm EXT BID PRN PRN Reason: Itching / Pruritus Last Admin: 07/20/17 17:46 Dose: 1 applic Tigecycline 50 mg/ Sodium (Chloride) 50 mls @ 100 mls/hr IVPB Q12H [facility] Last Admin: 07/28/17 12:35 Dose: 100 mls/hr Insulin Human Regular (Novolin R) 0 unit SC ACHS [facility] PRN Reason: Protocol Last Admin: 07/28/17 17:07 Dose: Not Given Isosorbide Mononitrate (Imdur) 60 mg PO DAILY [facility] Last Admin: 07/28/17 10:04 Dose: 60 mg Lactic Acid (Lac-Hydrin 12% Lotion (225 G)) 0 gm TOP DAILY [facility] Last Admin: 07/28/17 10:09 Dose: 1 applic Losartan Potassium (Cozaar) 100 mg PO DAILY [facility] Last Admin: 07/28/17 10:03 Dose: 100 mg Metoprolol Succinate (Toprol Xl) 100 mg PO DAILY [facility] Last Admin: 07/28/17 10:03 Dose: 100 mg Pantoprazole Sodium (Protonix Ec Tab) 40 mg PO DAILY [facility] Last Admin: 07/28/17 10:04 Dose: 40 mg Rivaroxaban (Xarelto) 20 mg PO DAILY [facility] Last Admin: 07/28/17 10:03 Dose: 20 mg Rosuvastatin Calcium (Crestor) 5 mg PO HS [facility] Last Admin: 07/27/17 22:17 Dose: 5 mg Saccharomyces Boulardii (Florastor) 250 mg PO BID [facility] Last Admin: 07/28/17 17:19 Dose: 250 mg Sertraline HCl (Zoloft) 25 mg PO DAILY [facility] Last Admin: 07/28/17 10:04 Dose: 25 mg Sodium Hypochlorite (Dakins Solution 0.25%) 0 ml TOP BID [facility] Last Admin: 07/28/17 17:19 Dose: 1 applic Trazodone HCl (Desyrel) 25 mg PO HS [facility] Last Admin: 07/27/17 22:17 Dose: Not Given - Labs Labs: 07/28/17 08:00 07/28/17 08:00 PT 13.3 SECONDS (9.7-12.2) H 07/17/17 22:25 INR 1.2 07/17/17 22:25 APTT 34 SECONDS (21-34) 07/17/17 22:25 Attending/Attestation - Attestation I have personally seen and examined this patient.: Yes I have fully participated in the care of the patient.: Yes I have reviewed all pertinent clinical information, including history, physical exam and plan: Yes Notes (Text): 07/28/17 21:04 Patient was seen and examined at 1:30 PM 07/28/17 356 B Exam, Assessment and Plan were thoroughly gone over with the resident. Also on ROS: NO complaints but states that she trusts in GOD to clear up the infections in her leg wounds and will consider getting PICC line placed for continued Antibiotic Treatment if Irrigationist Designer Dr. Zurita believes she should Also on Exam: Extremities: Ulcers present on bilateral LE (3.5 x 2 cm Right Medial Anterior Upper Ankle, 2 x 2 cm Right Posterior Lower Leg, 1.5 x 1.0 cm Left Medial Ankle) Cardiology: Irregulary irregular Also on Assessments: 1). Hx Anemia Chronic Disease: Hgb/Hct are stable. Stool Occult Blood was positive 07/25/17 and evaluation by GI was ordered (Colonoscopy/EGD was recommended but patient did not want further workup at this time). Iron is low therefore Ferrous Sulfate 325 mg PO 3x/day was ordered. 2). HTN: not contolled and Hydralazine was increased to 100 mg PO 3x/day Will need to follow up with Irrigationist Designer Dr. Weston who was notified today of patient's refusal for PICC Line. He will see patient in the morning of . If she agrees then we will have to get IR involved as PICC line nurse not available on Tuesdays. Will have to speak with ID Dr. Grimaldo concerning length of Tigecycline. Spoke with Door Manager Jazz/Foundation Engineer Maicol and patient is for [facility] once PICC Line is placed. Yonatan Bowen D.O.
--- NOTE | 2017-07-28 15:16 | CP.PCM.PN ---
Subjective - Date & Time of Evaluation Date of Evaluation: 07/28/17 Time of Evaluation: 15:13 - Subjective Subjective: CC: follow up anemia/GI bleed Patient refusing procedures. RN documented dark reddish BM yesterday Anemic, but only slight drop in Hemoglobin. Has remained on Aspirin and Xarelto. Objective - Vital Signs/Intake and Output Vital Signs (last 24 hours): Temp Pulse Resp BP Pulse Ox 97.6 F 67 20 179/99 H 97 07/28/17 00:00 07/28/17 05:00 07/28/17 05:00 07/28/17 10:04 07/28/17 05:00 Intake and Output: 07/28/17 07/28/17 06:59 18:59 Intake Total 800 Output Total 1 Balance 799 - Medications Medications: Current Medications Aspirin (Aspirin Chewable) 81 mg PO DAILY [facility] Last Admin: 07/28/17 10:03 Dose: 81 mg Bacitracin (Bacitracin) 30 gm TOP DAILY [facility] Last Admin: 07/28/17 13:42 Dose: 1 applic Dextrose (Dextrose 50% Inj) 0 ml IV STAT PRN; Protocol PRN Reason: Hypoglycemia Protocol Dextrose (Glutose 15) 0 gm PO ONCE PRN; Protocol PRN Reason: Hypoglycemia Protocol Ferrous Sulfate (Feosol) 325 mg PO TID [facility] Last Admin: 07/28/17 14:11 Dose: 325 mg Furosemide (Lasix) 40 mg IVP DAILY [facility] Last Admin: 07/28/17 10:04 Dose: 40 mg Glucagon (Glucagen Diagnostic Kit) 0 mg IM STAT PRN; Protocol PRN Reason: Hypoglycemia Protocol Hydralazine HCl (Apresoline) 100 mg PO TID [facility] Last Admin: 07/28/17 14:11 Dose: 100 mg Hydrocortisone (Cortizone 1% Cream) 0 gm EXT BID PRN PRN Reason: Itching / Pruritus Last Admin: 07/20/17 17:46 Dose: 1 applic Tigecycline 50 mg/ Sodium (Chloride) 50 mls @ 100 mls/hr IVPB Q12H [facility] Last Admin: 07/28/17 12:35 Dose: 100 mls/hr Insulin Human Regular (Novolin R) 0 unit SC ACHS [facility] PRN Reason: Protocol Last Admin: 07/28/17 12:31 Dose: Not Given Isosorbide Mononitrate (Imdur) 60 mg PO DAILY [facility] Last Admin: 07/28/17 10:04 Dose: 60 mg Lactic Acid (Lac-Hydrin 12% Lotion (225 G)) 0 gm TOP DAILY [facility] Last Admin: 07/28/17 10:09 Dose: 1 applic Losartan Potassium (Cozaar) 100 mg PO DAILY [facility] Last Admin: 07/28/17 10:03 Dose: 100 mg Metoprolol Succinate (Toprol Xl) 100 mg PO DAILY [facility] Last Admin: 07/28/17 10:03 Dose: 100 mg Pantoprazole Sodium (Protonix Ec Tab) 40 mg PO DAILY [facility] Last Admin: 07/28/17 10:04 Dose: 40 mg Rivaroxaban (Xarelto) 20 mg PO DAILY [facility] Last Admin: 07/28/17 10:03 Dose: 20 mg Rosuvastatin Calcium (Crestor) 5 mg PO HS [facility] Last Admin: 07/27/17 22:17 Dose: 5 mg Saccharomyces Boulardii (Florastor) 250 mg PO BID [facility] Last Admin: 07/28/17 10:03 Dose: 250 mg Sertraline HCl (Zoloft) 25 mg PO DAILY [facility] Last Admin: 07/28/17 10:04 Dose: 25 mg Sodium Hypochlorite (Dakins Solution 0.25%) 0 ml TOP BID [facility] Last Admin: 07/28/17 10:10 Dose: 1 applic Trazodone HCl (Desyrel) 25 mg PO HS [facility] Last Admin: 07/27/17 22:17 Dose: Not Given - Labs Labs: 07/28/17 08:00 07/28/17 08:00 PT 13.3 SECONDS (9.7-12.2) H 07/17/17 22:25 INR 1.2 07/17/17 22:25 APTT 34 SECONDS (21-34) 07/17/17 22:25 - Constitutional Appears: No Acute Distress, Chronically Ill - Eye Exam Eye Exam: absent: Scleral icterus - ENT Exam ENT Exam: Normal Exam - Respiratory Exam Respiratory Exam: Clear to Ausculation Bilateral - Cardiovascular Exam Cardiovascular Exam: REGULAR RHYTHM - GI/Abdominal Exam GI & Abdominal Exam: Soft. absent: Tenderness Assessment and Plan (1) Atrial fibrillation Assessment & Plan: Management per medical team Status: Acute (2) Diabetes Assessment & Plan: Management per medical team Status: Acute (3) Occult blood in stools Assessment & Plan: Refuses GI workup Remains on Elquis and ASA Status: Acute (4) Anemia Assessment & Plan: Hgb8.9. O Due to slow GI blood losses on anticoagulant therapy Patient not allowing GI workup. Consider stopping anticoagulant therapy Status: Active
[2017-07-28] MEDS: traZODone 25 mg Tab PO SCH (22:44)
[2017-07-29 07:04] LABS: BASO # 0.1 K/uL (0.0-0.2); BASO % 1.3 % (0.0-2.0); EOS # 0.1 K/uL (0.0-0.7); EOS % 1.4 % (0.0-4.0); HEMATOCRIT 29.7 % (34.0-47.0); LYMPH # 1.6 K/uL (1.0-4.3); MEAN CELL VOLUME 84.8 fL (81.0-99.0); MEAN CORPUSCULAR HEMOGLOBIN 27.3 pg (27.0-31.0); MEAN CORPUSCULAR HGB CONC 32.2 g/dL (33.0-37.0); MEAN PLATELET VOLUME 8.7 fL (7.2-11.7); MONO # 0.6 K/uL (0.0-0.8); MONO % 11.9 % (0.0-10.0); NRBC % 0.1 % (0.0-2.0); RED CELL DISTRIBUTION WIDTH 18.4 % (11.5-14.5); WHITE BLOOD COUNT 4.6 K/uL (4.8-10.8)
[2017-07-29 07:36] LABS: ALKALINE PHOSPHATASE 169 U/L (38-126); ALT/SGPT 33 U/L (9-52); AST/SGOT 28 U/L (14-36); BILIRUBIN,TOTAL 0.9 mg/dL (0.2-1.3); BLOOD UREA NITROGEN 30 mg/dL (7-17); CALCIUM 8.1 mg/dl (8.6-10.4); CARBON DIOXIDE 26 mmol/L (22-30); CHLORIDE 104 mmol/L (98-107); GFR AFRICAN-AMERICAN > 60; GLUCOSE,RANDOM 92 mg/dL (65-105); MAGNESIUM 1.6 mg/dL (1.6-2.3); PHOSPHOROUS 3.3 mg/dL (2.5-4.5); SODIUM 137 mmol/L (132-148); TOTAL PROTEIN 6.6 g/dL (6.3-8.3)
[2017-07-29 07:40] LABS: ALB/GLOB RATIO 0.8 (1.0-2.1)
[2017-07-29] MEDS: (Novolin R) Insulin Human Regular 100 units/ml vial SC SCH ×4 (07:53→21:58)
--- NOTE | 2017-07-29 09:52 | PCM.SURG1 ---
Surgeon's Initial Post Op Note - Surgeon's Notes Surgeon: Renny Pat MD Paperhanger Apprentice: NONE Type of Anesthesia: Local Pre-Operative Diagnosis: Poor venous access Operative Findings: US showed a patent right basilic vein. Post-Operative Diagnosis: Poor venous access Operation Performed: Single lumen picc placement right basilic vein, 37 cm. Tip is in the SVC. Specimen/Specimens Removed: none Estimated Blood Loss: EBL {In ML}: 2 Blood Products Given: N/A Drains Used: No Drains Post-Op Condition: Fair Date of Surgery/Procedure: 07/29/17 Time of Surgery/Procedure: 09:45
--- NOTE | 2017-07-29 10:45 | PN ---
DATE: 07/29/2017 At the request of the bead cutter on her case, which I was called in yesterday to suggest and urged the patient for PICC line placement. I have seen the patient this morning, alert and orientated x3. Edema in extremities down nicely from her hospitalization. I have stressed the need for a PICC placement, and the patient agrees to PICC line placement. We will follow up with Aisha ceja compression therapy to manage her lower extremity ankle ulcers on an outpatient basis. Nicholas Hathaway DPM
[2017-07-29] MEDS: Pantoprazole 40 mg EC Tab PO SCH (10:46)
[2017-07-29] MEDS: Metoprolol Succinate 100 mg XL Tab PO SCH (10:47)
[2017-07-29] MEDS: Bacitracin Ointment 30 GM TUBE TOP SCH (10:54)
[2017-07-29] MEDS: Ammonium Lactate 12% Lotion (225 g) TOP SCH (10:54)
[2017-07-29] MEDS: Dakin's Topical 0.25%-Half Strength (480 ml) TOP SCH ×2 (10:54→18:09)
[2017-07-29] MEDS: Saccharomyces Boulardi 250 mg Cap PO SCH ×2 (10:55→18:01)
--- NOTE | 2017-07-29 13:18 | US ---
Date of procedure: 07/29/2017 Procedure: Ultrasound guidance for vascular access HISTORY: Infection requiring long-term IV antibiotics TECHNIQUE: Following informed consent and procedure time-out, the patient placed supine on the interventional table and the right arm prepped and draped in the usual sterile fashion. Ultrasound showed a patent and compressible basilic vein. After the skin was anesthetized with lidocaine, the basilic vein was accessed with micro micropuncture technique using ultrasound guidance. An image documenting ultrasound guidance for vascular access was permanently saved. IMPRESSION: Ultrasound guidance for vascular access for placement of PICC.
--- NOTE | 2017-07-29 13:19 | RAD ---
PROCEDURE: Date of procedure: 07/29/2017 Procedure: 1. Placement of a right arm PICC with ultrasound and fluoroscopic guidance, CPT 81129 2. PICC tip confirmation with spot radiograph and is in the superior vena cava Medications: 1 percent lidocaine Total Fluoro time: 2 seconds Radiation: 0.75 MGy EBL: 2 cc HISTORY: Infection requiring long-term IV antibiotics TECHNIQUE: Following informed consent and procedure time-out, the patient was placed supine on the interventional table and the right arm prepped and draped in the usual sterile fashion. Ultrasound showed a patent and compressible right basilic vein. After the skin was anesthetized with lidocaine, the basilic vein was accessed with micro micropuncture technique using ultrasound guidance. A guidewire was then advanced under fluoroscopic guidance into the superior vena cava. An image documenting ultrasound guidance for vascular access was permanently saved. The length of the single-lumen 4 [place] PICC was trimmed to 37 centimeters and advanced through a peel-away sheath. The PICC was position with tip of PICC confirm a spot radiograph the superior vena cava. The PICC was secured to the patient's skin. The PICC was flushed. A biopatch and sterile dressing was applied. IMPRESSION: Placement of a single-lumen 4 [place] PICC trimmed to 37 centimeters via right basilic vein. The tip of the PICC is confirmed with spot radiograph and is in the superior vena cava.
--- NOTE | 2017-07-29 14:21 | CP.PCM.PN ---
Subjective - Date & Time of Evaluation Date of Evaluation: 07/29/17 Time of Evaluation: 07:42 - Subjective Subjective: Progress note for Dr. Bowen Patient did not seem amenable to getting PICC line today. Reached out to Podiatry resident and Dr. Mack to speak to patient about the importance of getting PICC line in order to continue antibiotic treatment at the care home. Patient did not agree to CT angio as well. Patient denies Fever, chills, shortness of breath, difficulty with bowel movements, melena, hematochezia. Dr. Mack saw patient this morning and discussed the importance of getting a PICC line for treatment. Patient agreed to a PICC line and Dr. Pat placed PICC line in patient with confirmed placement with imaging. Objective - Vital Signs/Intake and Output Vital Signs (last 24 hours): Temp Pulse Resp BP Pulse Ox 98.7 F 66 20 180/82 H 98 07/29/17 08:00 07/29/17 08:00 07/29/17 08:00 07/29/17 10:47 07/29/17 08:00 Intake and Output: 07/29/17 07/29/17 06:59 18:59 Intake Total 375 220 Balance 375 220 - Medications Medications: Current Medications Aspirin (Aspirin Chewable) 81 mg PO DAILY [facility] Last Admin: 07/29/17 10:46 Dose: 81 mg Bacitracin (Bacitracin) 30 gm TOP DAILY [facility] Last Admin: 07/29/17 10:54 Dose: 1 applic Dextrose (Dextrose 50% Inj) 0 ml IV STAT PRN; Protocol PRN Reason: Hypoglycemia Protocol Dextrose (Glutose 15) 0 gm PO ONCE PRN; Protocol PRN Reason: Hypoglycemia Protocol Ferrous Sulfate (Feosol) 325 mg PO TID [facility] Last Admin: 07/29/17 10:46 Dose: 325 mg Furosemide (Lasix) 40 mg IVP DAILY [facility] Last Admin: 07/29/17 10:47 Dose: 40 mg Glucagon (Glucagen Diagnostic Kit) 0 mg IM STAT PRN; Protocol PRN Reason: Hypoglycemia Protocol Hydralazine HCl (Apresoline) 100 mg PO TID [facility] Last Admin: 07/29/17 10:46 Dose: 100 mg Hydrocortisone (Cortizone 1% Cream) 0 gm EXT BID PRN PRN Reason: Itching / Pruritus Last Admin: 07/20/17 17:46 Dose: 1 applic Tigecycline 50 mg/ Sodium (Chloride) 50 mls @ 100 mls/hr IVPB Q12H [facility] Last Admin: 07/29/17 12:44 Dose: 100 mls/hr Insulin Human Regular (Novolin R) 0 unit SC ACHS [facility] PRN Reason: Protocol Last Admin: 07/29/17 12:15 Dose: Not Given Isosorbide Mononitrate (Imdur) 60 mg PO DAILY [facility] Last Admin: 07/29/17 10:46 Dose: 60 mg Isosorbide Mononitrate (Imdur) 60 mg PO ONCE ONE Stop: 07/29/17 15:01 Isosorbide Mononitrate (Imdur) 120 mg PO DAILY [facility] Lactic Acid (Lac-Hydrin 12% Lotion (225 G)) 0 gm TOP DAILY [facility] Last Admin: 07/29/17 10:54 Dose: 1 applic Losartan Potassium (Cozaar) 100 mg PO DAILY [facility] Last Admin: 07/29/17 10:47 Dose: 100 mg Metoprolol Succinate (Toprol Xl) 100 mg PO DAILY [facility] Last Admin: 07/29/17 10:47 Dose: 100 mg Pantoprazole Sodium (Protonix Ec Tab) 40 mg PO DAILY [facility] Last Admin: 07/29/17 10:46 Dose: 40 mg Rivaroxaban (Xarelto) 20 mg PO DAILY [facility] Last Admin: 07/29/17 10:48 Dose: 20 mg Rosuvastatin Calcium (Crestor) 5 mg PO HS [facility] Last Admin: 07/28/17 22:44 Dose: 5 mg Saccharomyces Boulardii (Florastor) 250 mg PO BID [facility] Last Admin: 07/29/17 10:55 Dose: 250 mg Sertraline HCl (Zoloft) 25 mg PO DAILY [facility] Last Admin: 07/29/17 10:46 Dose: 25 mg Sodium Hypochlorite (Dakins Solution 0.25%) 0 ml TOP BID [facility] Last Admin: 07/29/17 10:54 Dose: 1 applic Trazodone HCl (Desyrel) 25 mg PO HS [facility] Last Admin: 07/28/17 22:44 Dose: 25 mg - Labs Labs: 07/29/17 06:50 07/29/17 06:50 PT 13.3 SECONDS (9.7-12.2) H 07/17/17 22:25 INR 1.2 07/17/17 22:25 APTT 34 SECONDS (21-34) 07/17/17 22:25 - Constitutional Appears: Non-toxic - Head Exam Head Exam: NORMAL INSPECTION - Eye Exam Eye Exam: EOMI, Normal appearance - ENT Exam ENT Exam: Mucous Membranes Moist - Neck Exam Neck Exam: Full ROM - Respiratory Exam Respiratory Exam: Clear to Ausculation Bilateral, NORMAL BREATHING PATTERN. absent: Accessory Muscle Use, Chest Wall Tenderness, Respiratory Distress - Cardiovascular Exam Cardiovascular Exam: REGULAR RHYTHM, +S1, +S2 - GI/Abdominal Exam GI & Abdominal Exam: Soft. absent: Tenderness - Extremities Exam Extremities Exam: Full ROM. absent: Pedal Edema Additional comments: Patient has dressings on bilateral lower extremities changed by podiatry with no visible drainage. - Neurological Exam Neurological Exam: Alert, Awake - Psychiatric Exam Psychiatric exam: Normal Affect, Normal Mood - Skin Skin Exam: Dry, Intact Assessment and Plan - Assessment and Plan (Free Text) Assessment: Chronic Non-healing skin ulcers Admitted to med/surg Pt with chronic PVD, Diabetes, chronic pedal edema Dr Tai, Vascular Surgeon, consulted Dr. Mack, Podiatry, consulted: - Wounds cleansed with hydrogen peroxide and dressed with DSD - Q12 dressing changes - peroxide cleanse, Dakin's soaked wet to dry 4x4 gauze, kerlix Compression stockings Nursing communication to keep legs elevated Continued home Bacitracin, Lac-Hydrin 12% solution Gram Stain/Wound Culture Right Leg 07/18: No polymorphonuclear WBCs observed, No organisms seen Gram Stain/Wound Culture Other Source 07/18: Few polymorphonuclear WBCs, Few gram negative rods Infectious Disease consult: Dr Grimaldo 07/[address] Grimaldo: continue on tigecycline and re-evaluate in 3 days to discuss further medical management. Tigecycline 50mg IV Q12h (active since 07/22/17) 07/29 PICC line inserted. Meds: Lasix 40mg IV daily Doxy 100mg IV Q12H Floraster 250mg PO Daily Imagin/16 CXR: prominent diffuse increased interstitial lung markings suggesting moderate venous congestion. consolidative changes at left lung base with small left pleural effusion. scattered nodular densities in upper lung zones with left greater than right 07/18 Lower extremity duplex shows PVD Right: mid to distal femoral, posterior tibial and peroneal veins were not visualized due to severe edema. no evidence of DVT or superficial vein thrombosis of veins. pulsatile venous flow was noted in the major veins. Left: mid to distal femoral, posterior tibial and peroneal veins were not visualized due to severe edema. no evidence of deep or superficial vein thrombosis for veins clearly visualized in left lower extremity. pulsatile flow noted in major veins CHF (diastolic dysfunction) 07/18 CT Angio of ileofem runoff refused by patient, stated she will think about getting scan tomorrow 07/19 07/21 patient continues to state she will consider CTA of ileofemoral runoff. possible GI bleed. FOBT positive 07/25 FOBT positive for blood consider stopping Xarelto. f/u with Cardiology concerning this issue considering patient is on Xarelto and ASA for her Hx CHF and Atrial Fibrillation. Diastolic CHF history ECHO (03/11/14): LV EF 60%, reversible restrictive diastolic dysfunction - pt refusing follow up ECHO BNP: 2850 (previous admissions 7400, 1880) 07/22 Echo: EF 45.1%, mild concentric left venricular hypertrophy. moderate diastolic dysfunction. grade III restrictive diastolic dysfunction, right ventricular systolic function is moderately reduced. Atrial fibrillation EKG: Afib @ 94 bpm, no acute St/T wave changes Xarelto 20mg PO Daily Metoprolol 50mg PO Daily CHADS-2: score 4 pts (positive criteria: CHF, HTN, >75, Diabetes; 8.5% risk of thromboembolic event) HTN BP elevated at admission HOLD home Norvasc 5mg PO Daily due to peripheral edema Imdur 60mg PO Daily Toprol XL 100mg PO daily Cozaar 100mg PO daily c/w Hydralazine 50mg PO TID Monitor Bitals Hyperlipidemia, no home meds 07/20 lipid panel TG 56 Cholesterol 126 LDL 59 HDL 45 T2DM No DM medications listed on care home med rec Accuchecks FORTUNATO Hypoglycemia protocol Diabetic education A1C 07/18: 8.3 Depression Zoloft 25mg PO Daily Insomnia Trazadone 50mg PO HS Transaminitis, downtrending AST/ALT 38/40 Monitor Diet: Heart healthy diet Prophylaxis Xarelto 20mg PO Daily SCDs contraindicated Pepcid 20mg PO BID Pastoral Care - spiritual support Turn reposition every Q2H Maryan Armstrong PGY1
[2017-07-29] MEDS: traZODone 25 mg Tab PO SCH (21:57)
[2017-07-30 07:16] LABS: BASO % 0.8 % (0.0-2.0); EOS # 0.1 K/uL (0.0-0.7); HEMATOCRIT 30.8 % (34.0-47.0); LYMPH # 1.4 K/uL (1.0-4.3); LYMPH % 25.1 % (20.0-40.0); MEAN CELL VOLUME 86.7 fL (81.0-99.0); MEAN CORPUSCULAR HEMOGLOBIN 27.2 pg (27.0-31.0); MEAN CORPUSCULAR HGB CONC 31.4 g/dL (33.0-37.0); MONO # 0.7 K/uL (0.0-0.8); MONO % 12.7 % (0.0-10.0); NRBC % 0.1 % (0.0-2.0); RED CELL DISTRIBUTION WIDTH 18.8 % (11.5-14.5); WHITE BLOOD COUNT 5.7 K/uL (4.8-10.8)
[2017-07-30 07:35] LABS: ALKALINE PHOSPHATASE 171 U/L (38-126); ALT/SGPT 35 U/L (9-52); AST/SGOT 30 U/L (14-36); BILIRUBIN,TOTAL 0.8 mg/dL (0.2-1.3); BLOOD UREA NITROGEN 35 mg/dL (7-17); CARBON DIOXIDE 28 mmol/L (22-30); CHLORIDE 103 mmol/L (98-107); GFR AFRICAN-AMERICAN > 60; GLUCOSE,RANDOM 98 mg/dL (65-105); MAGNESIUM 1.7 mg/dL (1.6-2.3); PHOSPHOROUS 3.3 mg/dL (2.5-4.5); POTASSIUM 4.2 mmol/L (3.6-5.2); TOTAL PROTEIN 6.9 g/dL (6.3-8.3)
[2017-07-30 07:39] LABS: ALB/GLOB RATIO 0.7 (1.0-2.1)
--- NOTE | 2017-07-30 09:37 | CP.PCM.PN ---
Subjective - Date & Time of Evaluation Date of Evaluation: 07/30/17 Time of Evaluation: 09:33 - Subjective Subjective: Progress note for Dr. Bowen Patient seen and examined at bedside. Patient had PICC line inserted yesterday and will continue to have antibiotics via PICC line. Patient denies fever, chills, abdominal pain, diarrhea, constipation, leg pain. Objective - Vital Signs/Intake and Output Vital Signs (last 24 hours): Temp Pulse Resp BP Pulse Ox 98.1 F 64 20 182/95 H 97 07/30/17 08:00 07/30/17 08:00 07/30/17 08:00 07/30/17 08:00 07/30/17 08:00 Intake and Output: 07/30/17 07/30/17 06:59 18:59 Intake Total 470 Balance 470 - Medications Medications: Current Medications Aspirin (Aspirin Chewable) 81 mg PO DAILY [facility] Last Admin: 07/29/17 10:46 Dose: 81 mg Bacitracin (Bacitracin) 30 gm TOP DAILY [facility] Last Admin: 07/29/17 10:54 Dose: 1 applic Dextrose (Dextrose 50% Inj) 0 ml IV STAT PRN; Protocol PRN Reason: Hypoglycemia Protocol Dextrose (Glutose 15) 0 gm PO ONCE PRN; Protocol PRN Reason: Hypoglycemia Protocol Ferrous Sulfate (Feosol) 325 mg PO TID [facility] Last Admin: 07/29/17 17:57 Dose: 325 mg Furosemide (Lasix) 80 mg PO DAILY [facility] Glucagon (Glucagen Diagnostic Kit) 0 mg IM STAT PRN; Protocol PRN Reason: Hypoglycemia Protocol Hydralazine HCl (Apresoline) 100 mg PO TID@1000,1600,2200 [facility] Hydrocortisone (Cortizone 1% Cream) 0 gm EXT BID PRN PRN Reason: Itching / Pruritus Last Admin: 07/20/17 17:46 Dose: 1 applic Tigecycline 50 mg/ Sodium (Chloride) 50 mls @ 100 mls/hr IVPB Q12H [facility] Last Admin: 07/29/17 23:40 Dose: 100 mls/hr Insulin Human Regular (Novolin R) 0 unit SC ACHS [facility] PRN Reason: Protocol Last Admin: 07/29/17 21:58 Dose: Not Given Isosorbide Mononitrate (Imdur) 120 mg PO DAILY@1300 [facility] Lactic Acid (Lac-Hydrin 12% Lotion (225 G)) 0 gm TOP DAILY [facility] Last Admin: 07/29/17 10:54 Dose: 1 applic Losartan Potassium (Cozaar) 100 mg PO DAILY@1300 [facility] Metoprolol Succinate (Toprol Xl) 100 mg PO [facility] Pantoprazole Sodium (Protonix Ec Tab) 40 mg PO DAILY [facility] Last Admin: 07/29/17 10:46 Dose: 40 mg Rivaroxaban (Xarelto) 20 mg PO DAILY [facility] Last Admin: 07/29/17 10:48 Dose: 20 mg Rosuvastatin Calcium (Crestor) 5 mg PO HS [facility] Last Admin: 07/29/17 21:57 Dose: 5 mg Saccharomyces Boulardii (Florastor) 250 mg PO BID [facility] Last Admin: 07/29/17 18:01 Dose: 250 mg Sertraline HCl (Zoloft) 25 mg PO DAILY [facility] Last Admin: 07/29/17 10:46 Dose: 25 mg Sodium Hypochlorite (Dakins Solution 0.25%) 0 ml TOP BID [facility] Last Admin: 07/29/17 18:09 Dose: 1 applic Trazodone HCl (Desyrel) 25 mg PO HS [facility] Last Admin: 07/29/17 21:57 Dose: 25 mg - Labs Labs: 07/30/17 06:55 07/30/17 06:55 PT 13.3 SECONDS (9.7-12.2) H 07/17/17 22:25 INR 1.2 07/17/17 22:25 APTT 34 SECONDS (21-34) 07/17/17 22:25 - Constitutional Appears: Non-toxic - Head Exam Head Exam: NORMAL INSPECTION - Eye Exam Eye Exam: EOMI, Normal appearance - ENT Exam ENT Exam: Mucous Membranes Moist - Neck Exam Neck Exam: Full ROM - Respiratory Exam Respiratory Exam: NORMAL BREATHING PATTERN. absent: Accessory Muscle Use - Cardiovascular Exam Cardiovascular Exam: REGULAR RHYTHM, +S1, +S2 - GI/Abdominal Exam GI & Abdominal Exam: Soft. absent: Tenderness - Extremities Exam Extremities Exam: Full ROM. absent: Calf Tenderness Additional comments: Patient had dressings at site of ulcers. No signs of erythema on the edges of ulcers. - Neurological Exam Neurological Exam: Alert, Awake - Psychiatric Exam Psychiatric exam: Normal Affect, Normal Mood - Skin Skin Exam: Dry, Normal Color Assessment and Plan - Assessment and Plan (Free Text) Assessment: Chronic Non-healing skin ulcers Admitted to med/surg Pt with chronic PVD, Diabetes, chronic pedal edema Dr Tai, Vascular Surgeon Consult Dr. Mack, Podiatry, consulted: - Wounds cleansed with hydrogen peroxide and dressed with DSD - Q12 dressing changes - peroxide cleanse, Dakin's soaked wet to dry 4x4 gauze, kerlix Compression stockings Nursing communication to keep legs elevated Continued home Bacitracin, Lac-Hydrin 12% solution Gram Stain/Wound Culture Right Leg 07/18: No polymorphonuclear WBCs observed, No organisms seen Gram Stain/Wound Culture Other Source 07/18: Few polymorphonuclear WBCs, Few gram negative rods Infectious Disease consult: Dr Grimaldo 07/[address] Grimaldo: continue on tigecycline and re-evaluate in 3 days to discuss further medical management. Tigecycline 50mg IV Q12h (active since 07/22/17) 07/29 PICC line inserted. 07/30 arrangements have been made for outpatient antibiotics per Dr. Grimaldo Meds: Lasix 40mg IV daily Doxy 100mg IV Q12H Floraster 250mg PO Daily Imagin/16 CXR: prominent diffuse increased interstitial lung markings suggesting moderate venous congestion. consolidative changes at left lung base with small left pleural effusion. scattered nodular densities in upper lung zones with left greater than right 07/18 Lower extremity duplex shows PVD Right: mid to distal femoral, posterior tibial and peroneal veins were not visualized due to severe edema. no evidence of DVT or superficial vein thrombosis of veins. pulsatile venous flow was noted in the major veins. Left: mid to distal femoral, posterior tibial and peroneal veins were not visualized due to severe edema. no evidence of deep or superficial vein thrombosis for veins clearly visualized in left lower extremity. pulsatile flow noted in major veins CHF (diastolic dysfunction) 07/18 CT Angio of ileofem runoff refused by patient, stated she will think about getting scan tomorrow 07/19 07/21 patient continues to state she will consider CTA of ileofemoral runoff. possible GI bleed. FOBT positive 07/25 FOBT positive for blood consider stopping Xarelto. f/u with Cardiology concerning this issue considering patient is on Xarelto and ASA for her Hx CHF and Atrial Fibrillation. Diastolic CHF history ECHO (7/11/14): LV EF 60%, reversible restrictive diastolic dysfunction - pt refusing follow up ECHO BNP: 2850 (previous admissions 7400, 1880) 07/22 Echo: EF 45.1%, mild concentric left venricular hypertrophy. moderate diastolic dysfunction. grade III restrictive diastolic dysfunction, right ventricular systolic function is moderately reduced. Atrial fibrillation EKG: Afib @ 94 bpm, no acute St/T wave changes Xarelto 20mg PO Daily Metoprolol 50mg PO Daily CHADS-2: score 4 pts (positive criteria: CHF, HTN, >75, Diabetes; 8.5% risk of thromboembolic event) HTN BP elevated at admission HOLD home Norvasc 5mg PO Daily due to peripheral edema Imdur 60mg PO Daily Toprol XL 100mg PO daily Cozaar 100mg PO daily c/w Hydralazine 50mg PO TID Monitor Bitals Hyperlipidemia, no home meds 07/20 lipid panel TG 56 Cholesterol 126 LDL 59 HDL 45 T2DM No DM medications listed on [facility] med rec Accuchecks FORTUNATO Hypoglycemia protocol Diabetic education A1C 07/18: 8.3 Depression Zoloft 25mg PO Daily Insomnia Trazadone 50mg PO HS Transaminitis, downtrending AST/ALT 38/40 Monitor Diet: Heart healthy diet Prophylaxis Xarelto 20mg PO Daily SCDs contraindicated Pepcid 20mg PO BID Pastoral Care - spiritual support Turn reposition every Q2H Maryan Armstrong PGY1
[2017-07-30] MEDS: Pantoprazole 40 mg EC Tab PO SCH (09:58)
[2017-07-30] MEDS: Saccharomyces Boulardi 250 mg Cap PO SCH ×2 (09:59→18:30)
[2017-07-30] MEDS: Dakin's Topical 0.25%-Half Strength (480 ml) TOP SCH (10:01)
[2017-07-30] MEDS: Bacitracin Ointment 30 GM TUBE TOP SCH (10:01)
[2017-07-30] MEDS: Ammonium Lactate 12% Lotion (225 g) TOP SCH (10:02)
[2017-07-30] MEDS: (Novolin R) Insulin Human Regular 100 units/ml vial SC SCH ×4 (10:05→22:02)
[2017-07-30 12:13] LABS: SODIUM 130 mmol/L (132-148)
--- NOTE | 2017-07-30 16:08 | CP.PCM.PN ---
Subjective - Date & Time of Evaluation Date of Evaluation: 07/30/17 Time of Evaluation: 09:00 - Subjective Subjective: arrangements made for out pt rx Objective - Vital Signs/Intake and Output Vital Signs (last 24 hours): Temp Pulse Resp BP Pulse Ox 98.1 F 64 20 182/95 H 97 07/30/17 08:00 07/30/17 08:00 07/30/17 08:00 07/30/17 10:21 07/30/17 08:00 Intake and Output: 07/30/17 07/30/17 06:59 18:59 Intake Total 470 Output Total 1 Balance 470 -1 - Medications Medications: Current Medications Aspirin (Aspirin Chewable) 81 mg PO DAILY [facility] Last Admin: 07/30/17 10:00 Dose: 81 mg Bacitracin (Bacitracin) 30 gm TOP DAILY [facility] Last Admin: 07/30/17 10:01 Dose: 1 applic Dextrose (Dextrose 50% Inj) 0 ml IV STAT PRN; Protocol PRN Reason: Hypoglycemia Protocol Dextrose (Glutose 15) 0 gm PO ONCE PRN; Protocol PRN Reason: Hypoglycemia Protocol Ferrous Sulfate (Feosol) 325 mg PO TID [facility] Last Admin: 07/30/17 15:24 Dose: 325 mg Furosemide (Lasix) 80 mg PO DAILY [facility] Last Admin: 07/30/17 10:21 Dose: 80 mg Glucagon (Glucagen Diagnostic Kit) 0 mg IM STAT PRN; Protocol PRN Reason: Hypoglycemia Protocol Hydralazine HCl (Apresoline) 100 mg PO TID@1000,1600,2200 [facility] Last Admin: 07/30/17 09:58 Dose: 100 mg Hydrocortisone (Cortizone 1% Cream) 0 gm EXT BID PRN PRN Reason: Itching / Pruritus Last Admin: 07/20/17 17:46 Dose: 1 applic Tigecycline 50 mg/ Sodium (Chloride) 50 mls @ 100 mls/hr IVPB Q12H [facility] Last Admin: 07/30/17 12:53 Dose: 100 mls/hr Insulin Human Regular (Novolin R) 0 unit SC ACHS [facility] PRN Reason: Protocol Last Admin: 07/30/17 12:21 Dose: Not Given Isosorbide Mononitrate (Imdur) 120 mg PO DAILY@1300 [facility] Last Admin: 07/30/17 15:24 Dose: 120 mg Lactic Acid (Lac-Hydrin 12% Lotion (225 G)) 0 gm TOP DAILY [facility] Last Admin: 07/30/17 10:02 Dose: 1 applic Losartan Potassium (Cozaar) 100 mg PO DAILY@1300 [facility] Last Admin: 07/30/17 15:24 Dose: 100 mg Metoprolol Succinate (Toprol Xl) 100 mg PO HS [facility] Pantoprazole Sodium (Protonix Ec Tab) 40 mg PO DAILY [facility] Last Admin: 07/30/17 09:58 Dose: 40 mg Rivaroxaban (Xarelto) 20 mg PO DAILY [facility] Last Admin: 07/30/17 10:00 Dose: 20 mg Rosuvastatin Calcium (Crestor) 5 mg PO HS [facility] Last Admin: 07/29/17 21:57 Dose: 5 mg Saccharomyces Boulardii (Florastor) 250 mg PO BID [facility] Last Admin: 07/30/17 09:59 Dose: 250 mg Sertraline HCl (Zoloft) 25 mg PO DAILY [facility] Last Admin: 07/30/17 10:00 Dose: 25 mg Sodium Hypochlorite (Dakins Solution 0.25%) 0 ml TOP BID [facility] Last Admin: 07/30/17 10:01 Dose: 1 applic Trazodone HCl (Desyrel) 25 mg PO HS [facility] Last Admin: 07/29/17 21:57 Dose: 25 mg - Labs Labs: 07/30/17 06:55 07/30/17 06:55 PT 13.3 SECONDS (9.7-12.2) H 07/17/17 22:25 INR 1.2 07/17/17 22:25 APTT 34 SECONDS (21-34) 07/17/17 22:25 - Constitutional Appears: Non-toxic, Chronically Ill - Head Exam Head Exam: NORMOCEPHALIC - Eye Exam Eye Exam: absent: Scleral icterus - ENT Exam ENT Exam: Mucous Membranes Dry - Neck Exam Neck Exam: absent: Lymphadenopathy - Respiratory Exam Respiratory Exam: Decreased Breath Sounds Assessment and Plan (1) Atrial fibrillation Status: Acute (2) CHF (congestive heart failure) Status: Acute (3) Diabetes Status: Acute (4) Skin ulcer Status: Acute (5) Anemia Status: Active (6) Diabetes mellitus type 2 Status: Active (7) Dyslipidemia Status: Active (8) Cellulitis Status: Acute
--- NOTE | 2017-07-30 21:38 | CP.PCM.PN ---
Subjective - Date & Time of Evaluation Date of Evaluation: 07/30/17 Time of Evaluation: 12:40 - Subjective Subjective: Podiatry progress Note- 87 year old female seen and evaluated at bedside for f/u of ulcerations to bilateral lower extremities. Denies any pain or discomfort the bilateral. Patient denies of any recent f/n/v/c/sob/cp at this time. Objective - Vital Signs/Intake and Output Vital Signs (last 24 hours): Temp Pulse Resp BP Pulse Ox 97.9 F 69 20 174/78 H 99 07/30/17 15:00 07/30/17 15:00 07/30/17 15:00 07/30/17 15:00 07/30/17 15:00 Intake and Output: 07/30/17 07/31/17 18:59 06:59 Output Total 1 Balance -1 - Medications Medications: Current Medications Aspirin (Aspirin Chewable) 81 mg PO DAILY [facility] Last Admin: 07/30/17 10:00 Dose: 81 mg Bacitracin (Bacitracin) 30 gm TOP DAILY [facility] Last Admin: 07/30/17 10:01 Dose: 1 applic Dextrose (Dextrose 50% Inj) 0 ml IV STAT PRN; Protocol PRN Reason: Hypoglycemia Protocol Dextrose (Glutose 15) 0 gm PO ONCE PRN; Protocol PRN Reason: Hypoglycemia Protocol Ferrous Sulfate (Feosol) 325 mg PO TID [facility] Last Admin: 07/30/17 18:31 Dose: 325 mg Furosemide (Lasix) 80 mg PO DAILY [facility] Last Admin: 07/30/17 10:21 Dose: 80 mg Glucagon (Glucagen Diagnostic Kit) 0 mg IM STAT PRN; Protocol PRN Reason: Hypoglycemia Protocol Hydralazine HCl (Apresoline) 100 mg PO TID@1000,1600,2200 [facility] Last Admin: 07/30/17 18:30 Dose: 100 mg Hydrocortisone (Cortizone 1% Cream) 0 gm EXT BID PRN PRN Reason: Itching / Pruritus Last Admin: 07/20/17 17:46 Dose: 1 applic Tigecycline 50 mg/ Sodium (Chloride) 50 mls @ 100 mls/hr IVPB Q12H [facility] Last Admin: 07/30/17 12:53 Dose: 100 mls/hr Insulin Human Regular (Novolin R) 0 unit SC ACHS [facility] PRN Reason: Protocol Last Admin: 07/30/17 18:38 Dose: 1 unit Isosorbide Mononitrate (Imdur) 120 mg PO DAILY@1300 [facility] Last Admin: 07/30/17 15:24 Dose: 120 mg Lactic Acid (Lac-Hydrin 12% Lotion (225 G)) 0 gm TOP DAILY [facility] Last Admin: 07/30/17 10:02 Dose: 1 applic Losartan Potassium (Cozaar) 100 mg PO DAILY@1300 [facility] Last Admin: 07/30/17 15:24 Dose: 100 mg Metoprolol Succinate (Toprol Xl) 100 mg PO [facility] Pantoprazole Sodium (Protonix Ec Tab) 40 mg PO DAILY [facility] Last Admin: 07/30/17 09:58 Dose: 40 mg Rivaroxaban (Xarelto) 20 mg PO DAILY [facility] Last Admin: 07/30/17 10:00 Dose: 20 mg Rosuvastatin Calcium (Crestor) 5 mg PO HS [facility] Last Admin: 07/29/17 21:57 Dose: 5 mg Saccharomyces Boulardii (Florastor) 250 mg PO BID [facility] Last Admin: 07/30/17 18:30 Dose: 250 mg Sertraline HCl (Zoloft) 25 mg PO DAILY [facility] Last Admin: 07/30/17 10:00 Dose: 25 mg Sodium Hypochlorite (Dakins Solution 0.25%) 0 ml TOP BID [facility] Last Admin: 07/30/17 10:01 Dose: 1 applic Trazodone HCl (Desyrel) 25 mg PO HS [facility] Last Admin: 07/29/17 21:57 Dose: 25 mg - Labs Labs: 07/30/17 06:55 07/30/17 06:55 PT 13.3 SECONDS (9.7-12.2) H 07/17/17 22:25 INR 1.2 07/17/17 22:25 APTT 34 SECONDS (21-34) 07/17/17 22:25 - Constitutional Appears: Well, Non-toxic, No Acute Distress - Extremities Exam Additional comments: Bilateral LE physical exam: VASC: DP pulses weakly palpable 1/4 b/l. PT pulses non-palpable b/l. Temperature gradient cool to cool b/l. CFT <3 seconds to digits x5 b/l. No increase in warmth noted to ulcerations x3. +1 pitting edema noted to bilateral lower extremity. DERM: Ulceration #1 noted to the medial aspect of left ankle measuring approximately 2.1 x 1.9 x 0.2 cm - noted be undergoing scaling re- epithelialization. Ulceration #2 noted to the medial aspect of right ankle measuring approximately 4.0 x 2.7 x 0.3 cm - noted to have a mixed fibrogranular base Ulceration #3 noted to the posterior aspect of lower 1/3 of right leg measuring approximately 2.6 x 2.2 x 0.1 cm - noted to have a granular base. All ulcers have no purulence, no drainage, no malodor, no erythema, no undermining, no tunneling. NEURO: Gross sensation diminished b/l. ORTHO: Tenderness to palpation to ulceration at posterior right leg. No tenderness to palpation ulcerations to bilateral medial ankles. Muscle strength 5/5 for all dorsiflexors, plantarflexors, inverters, and everters. Ankle joint ROM decreased b/l. 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 Mack Chart, labs and vitals reviewed. Wounds cleansed with hydrogen peroxide and dressed with Dakin's soaked wet to dry 4x4 gauze and kerlix. Continue Q12 dressing changes - peroxide cleanse, Continue IV abx per medicine - Doxycycline 100mg IV Q12H -PICC line noted to be inplace. stable per podiatry for discharge. Pt will follow up with Dr. Mack in office on outpatient basis. Podiatry will continue to see patient while inhouse.
[2017-07-30] MEDS ORDERED: Metoprolol Succinate 100 mg XL Tab PO SCH (22:00)
[2017-07-31 08:05] LABS: MAGNESIUM 1.6 mg/dL (1.6-2.3); PHOSPHOROUS 3.2 mg/dL (2.5-4.5)
[2017-07-31] MEDS: (Novolin R) Insulin Human Regular 100 units/ml vial SC SCH ×3 (08:07→18:13)
--- NOTE | 2017-07-31 09:23 | CP.PCM.PN ---
Subjective - Date & Time of Evaluation Date of Evaluation: 07/31/17 Time of Evaluation: 09:20 - Subjective Subjective: Progress Note Patient seen and examined at bedside. No acute events overnight. Patient states she's doing okay. Patient denies fever, chills, nausea, vomiting, diarrhea. Patient states she slept well overnight. Objective - Vital Signs/Intake and Output Vital Signs (last 24 hours): Temp Pulse Resp BP Pulse Ox 97.2 F L 79 20 168/89 H 98 07/31/17 08:00 07/31/17 08:00 07/31/17 08:00 07/31/17 08:00 07/31/17 00:00 Intake and Output: 07/31/17 07/31/17 06:59 18:59 Intake Total 300 170 Balance 300 170 - Medications Medications: Current Medications Aspirin (Aspirin Chewable) 81 mg PO DAILY [facility] Last Admin: 07/30/17 10:00 Dose: 81 mg Bacitracin (Bacitracin) 30 gm TOP DAILY [facility] Last Admin: 07/30/17 10:01 Dose: 1 applic Dextrose (Dextrose 50% Inj) 0 ml IV STAT PRN; Protocol PRN Reason: Hypoglycemia Protocol Dextrose (Glutose 15) 0 gm PO ONCE PRN; Protocol PRN Reason: Hypoglycemia Protocol Ferrous Sulfate (Feosol) 325 mg PO TID [facility] Last Admin: 07/30/17 18:31 Dose: 325 mg Furosemide (Lasix) 80 mg PO DAILY [facility] Last Admin: 07/30/17 10:21 Dose: 80 mg Glucagon (Glucagen Diagnostic Kit) 0 mg IM STAT PRN; Protocol PRN Reason: Hypoglycemia Protocol Hydralazine HCl (Apresoline) 100 mg PO TID@1000,1600,2200 [facility] Last Admin: 07/30/17 22:01 Dose: 100 mg Hydrocortisone (Cortizone 1% Cream) 0 gm EXT BID PRN PRN Reason: Itching / Pruritus Last Admin: 07/20/17 17:46 Dose: 1 applic Tigecycline 50 mg/ Sodium (Chloride) 50 mls @ 100 mls/hr IVPB Q12H [facility] Last Admin: 07/30/17 23:51 Dose: 100 mls/hr Insulin Human Regular (Novolin R) 0 unit SC ACHS [facility] PRN Reason: Protocol Last Admin: 07/31/17 08:07 Dose: Not Given Isosorbide Mononitrate (Imdur) 120 mg PO DAILY@1300 [facility] Last Admin: 07/30/17 15:24 Dose: 120 mg Lactic Acid (Lac-Hydrin 12% Lotion (225 G)) 0 gm TOP DAILY [facility] Last Admin: 07/30/17 10:02 Dose: 1 applic Losartan Potassium (Cozaar) 100 mg PO DAILY@1300 [facility] Last Admin: 07/30/17 15:24 Dose: 100 mg Metoprolol Succinate (Toprol Xl) [address] [facility] Last Admin: 07/30/17 22:02 Dose: 100 mg Pantoprazole Sodium (Protonix Ec Tab) 40 mg PO DAILY [facility] Last Admin: 07/30/17 09:58 Dose: 40 mg Rivaroxaban (Xarelto) 20 mg PO DAILY [facility] Last Admin: 07/30/17 10:00 Dose: 20 mg Rosuvastatin Calcium (Crestor) [address] [facility] Last Admin: 07/30/17 22:01 Dose: 5 mg Saccharomyces Boulardii (Florastor) 250 mg PO BID [facility] Last Admin: 07/30/17 18:30 Dose: 250 mg Sertraline HCl (Zoloft) 25 mg PO DAILY [facility] Last Admin: 07/30/17 10:00 Dose: 25 mg Sodium Hypochlorite (Dakins Solution 0.25%) 0 ml TOP BID [facility] Last Admin: 07/30/17 10:01 Dose: 1 applic Trazodone HCl (Desyrel) [address] [facility] Last Admin: 07/29/17 21:57 Dose: 25 mg - Labs Labs: 07/30/17 06:55 07/30/17 06:55 PT 13.3 SECONDS (9.7-12.2) H 07/17/17 22:25 INR 1.2 07/17/17 22:25 APTT 34 SECONDS (21-34) 07/17/17 22:25 - Constitutional Appears: Non-toxic - Head Exam Head Exam: NORMAL INSPECTION - Eye Exam Eye Exam: EOMI, Normal appearance - ENT Exam ENT Exam: Mucous Membranes Moist - Neck Exam Neck Exam: Full ROM - Respiratory Exam Respiratory Exam: NORMAL BREATHING PATTERN. absent: Accessory Muscle Use - Cardiovascular Exam Cardiovascular Exam: +S1, +S2. absent: Bradycardia, Tachycardia - GI/Abdominal Exam GI & Abdominal Exam: Soft. absent: Tenderness - Extremities Exam Extremities Exam: Full ROM. absent: Pedal Edema Additional comments: picc line in place on right arm. no erythema, hematoma, leakage - Neurological Exam Neurological Exam: Alert, Awake - Psychiatric Exam Psychiatric exam: Normal Affect, Normal Mood - Skin Skin Exam: Dry Additional comments: ulcers on right and left lower extremities covered by dressings, dressings changed by podiatry at bedside. Assessment and Plan - Assessment and Plan (Free Text) Assessment: Chronic Non-healing skin ulcers Admitted to med/surg Pt with chronic PVD, Diabetes, chronic pedal edema Dr Tai, Vascular Surgeon Consult Dr. Mack, Podiatry, consulted: - Wounds cleansed with hydrogen peroxide and dressed with DSD - Q12 dressing changes - peroxide cleanse, Dakin's soaked wet to dry 4x4 gauze, kerlix Compression stockings Nursing communication to keep legs elevated Continued home Bacitracin, Lac-Hydrin 12% solution Gram Stain/Wound Culture Right Leg 07/18: No polymorphonuclear WBCs observed, No organisms seen Gram Stain/Wound Culture Other Source 07/18: Few polymorphonuclear WBCs, Few gram negative rods Infectious Disease consult: Dr Grimaldo 07/[address] Grimaldo: continue on tigecycline and re-evaluate in 3 days to discuss further medical management. Tigecycline 50mg IV Q12h (active since 07/22/17) 07/29 PICC line inserted. 07/30 arrangements have been made for outpatient antibiotics per Dr. Grimaldo Meds: Lasix 40mg IV daily Doxy 100mg IV Q12H Floraster 250mg PO Daily Imagin/16 CXR: prominent diffuse increased interstitial lung markings suggesting moderate venous congestion. consolidative changes at left lung base with small left pleural effusion. scattered nodular densities in upper lung zones with left greater than right 07/18 Lower extremity duplex shows PVD Right: mid to distal femoral, posterior tibial and peroneal veins were not visualized due to severe edema. no evidence of DVT or superficial vein thrombosis of veins. pulsatile venous flow was noted in the major veins. Left: mid to distal femoral, posterior tibial and peroneal veins were not visualized due to severe edema. no evidence of deep or superficial vein thrombosis for veins clearly visualized in left lower extremity. pulsatile flow noted in major veins CHF (diastolic dysfunction) 07/18 CT Angio of ileofem runoff refused by patient, stated she will think about getting scan tomorrow 07/19 07/21 patient continues to state she will consider CTA of ileofemoral runoff. Wound care per podiatry: Wounds cleansed with hydrogen peroxide and dressed with Dakin's soaked wet to dry 4x4 gauze and kerlix. Continue Q12 dressing changes - peroxide cleanse possible GI bleed. FOBT positive 07/25 FOBT positive for blood consider stopping Xarelto. f/u with Cardiology concerning this issue considering patient is on Xarelto and ASA for her Hx CHF and Atrial Fibrillation. Diastolic CHF history ECHO (03/11/14): LV EF 60%, reversible restrictive diastolic dysfunction - pt refusing follow up ECHO BNP: 2850 (previous admissions 7400, 1880) 07/22 Echo: EF 45.1%, mild concentric left venricular hypertrophy. moderate diastolic dysfunction. grade III restrictive diastolic dysfunction, right ventricular systolic function is moderately reduced. Atrial fibrillation EKG: Afib @ 94 bpm, no acute St/T wave changes Xarelto 20mg PO Daily Metoprolol 50mg PO Daily CHADS-2: score 4 pts (positive criteria: CHF, HTN, >75, Diabetes; 8.5% risk of thromboembolic event) HTN BP elevated at admission HOLD home Norvasc 5mg PO Daily due to peripheral edema Imdur 60mg PO Daily Toprol XL 100mg PO daily Cozaar 100mg PO daily c/w Hydralazine 50mg PO TID Monitor Vitals Hyperlipidemia, no home meds 07/20 lipid panel TG 56 Cholesterol 126 LDL 59 HDL 45 T2DM No DM medications listed on [facility] rec Accuchecks FORTUNATO Hypoglycemia protocol Diabetic education A1C 07/18: 8.3 Depression Zoloft 25mg PO Daily Insomnia Trazadone 50mg PO HS Transaminitis, downtrending AST/ALT 38/40 Monitor Diet: Heart healthy diet Prophylaxis Xarelto 20mg PO Daily SCDs contraindicated Pepcid 20mg PO BID Pastoral Care - spiritual support Turn reposition every Q2H Maryan Armstrong PGY1
[2017-07-31] MEDS: Pantoprazole 40 mg EC Tab PO SCH (11:02)
[2017-07-31] MEDS: Saccharomyces Boulardi 250 mg Cap PO SCH ×2 (11:04→18:12)
[2017-07-31] MEDS: Ammonium Lactate 12% Lotion (225 g) TOP SCH (12:16)
[2017-07-31] MEDS: Dakin's Topical 0.25%-Half Strength (480 ml) TOP SCH (12:17)
[2017-07-31] MEDS: Bacitracin Ointment 30 GM TUBE TOP SCH (12:18)
--- NOTE | 2017-07-31 14:12 | CP.PCM.DIS ---
Provider - Provider Date of Admission: 07/18/17 00:45 Attending physician: Yonatan Bowen MD Consults: GI consult: Dr. Agustin CROFT consult: Dr. Grimaldo Vascular surgery: Dr. Tai Podiatry Consult: Dr. Mack Time Spent in preparation of Discharge (in minutes): 45 Hospital Course - Lab Results Lab Results: Micro Results 07/18/17 08:30 Other: Please Indicate Gram Stain - Final 07/18/17 08:30 Other: Please Indicate Wound Culture - Final Proteus Mirabilis Beta Hemolytic Strep Group B Pseudomonas Aeruginosa 07/18/17 08:30 Other: Please Indicate Gram Stain - Final 07/18/17 08:30 Other: Please Indicate Wound Culture - Final Proteus Mirabilis Corynebacterium Species Pseudomonas Aeruginosa 07/18/17 08:30 Leg - Right Gram Stain - Final 07/18/17 08:30 Leg - Right Wound Culture - Final Morg Morganii Ss Morganii Beta Hemolytic Strep Group B Most Recent Lab Values WBC 5.7 K/uL (4.8-10.8) 07/30/17 06:55 RBC 3.56 Mil/uL (3.80-5.20) L 07/30/17 06:55 Hgb 9.7 g/dL (11.0-16.0) L 07/30/17 06:55 Hct 30.8 % (34.0-47.0) L 07/30/17 06:55 MCV 86.7 fL (81.0-99.0) 07/30/17 06:55 MCH 27.2 pg (27.0-31.0) 07/30/17 06:55 MCHC 31.4 g/dL (33.0-37.0) L 07/30/17 06:55 RDW 18.8 % (11.5-14.5) H 07/30/17 06:55 Plt Count 165 K/uL (130-400) 07/30/17 06:55 MPV 9.0 fL (7.2-11.7) 07/30/17 06:55 Neut % (Auto) 60.4 % (50.0-75.0) 07/30/17 06:55 Lymph % (Auto) 25.1 % (20.0-40.0) 07/30/17 06:55 Riley % (Auto) 12.7 % (0.0-10.0) H 07/30/17 06:55 Eos % (Auto) 1.0 % (0.0-4.0) 07/30/17 06:55 Baso % (Auto) 0.8 % (0.0-2.0) 07/30/17 06:55 Neut # 3.4 K/uL (1.8-7.0) 07/30/17 06:55 Lymph # 1.4 K/uL (1.0-4.3) 07/30/17 06:55 Riley # 0.7 K/uL (0.0-0.8) 07/30/17 06:55 Eos # 0.1 K/uL (0.0-0.7) 07/30/17 06:55 Baso # 0.0 K/uL (0.0-0.2) 07/30/17 06:55 Retic Count 2.0 % (0.5-1.5) H 07/24/17 08:27 PT 13.3 SECONDS (9.7-12.2) H 07/17/17 22:25 INR 1.2 07/17/17 22:25 APTT 34 SECONDS (21-34) 07/17/17 22:25 pO2 23 mm/Hg (30-55) L 07/17/17 22:28 VBG pH 7.34 (7.32-7.43) 07/17/17 22:28 VBG pCO2 55 mmHg (40-60) 07/17/17 22:28 VBG HCO3 25.3 mmol/L 07/17/17 22:28 VBG Total CO2 31.4 mmol/L (22-28) H 07/17/17 22:28 VBG O2 Sat (Calc) 41.6 % (40-65) 07/17/17 22:28 VBG Base Excess 2.6 mmol/L (0.0-2.0) H 07/17/17 22:28 VBG Potassium 4.7 mmol/L (3.6-5.2) 07/17/17 22:28 Sodium 145.0 mmol/l (132-148) 07/17/17 22:28 Chloride 111.0 mmol/L (98-107) H 07/17/17 22:28 Glucose 168 mg/dl (65-105) H 07/17/17 22:28 Lactate 1.6 mmol/L (0.7-2.1) 07/17/17 22:28 Sodium 130 mmol/L (132-148) L 07/30/17 06:55 Potassium 4.2 mmol/L (3.6-5.2) 07/30/17 06:55 Chloride 103 mmol/L (98-107) 07/30/17 06:55 Carbon Dioxide 28 mmol/L (22-30) 07/30/17 06:55 Anion Gap 3 (10-20) L 07/30/17 06:55 BUN 35 mg/dL (7-17) H 07/30/17 06:55 Creatinine 0.9 mg/dL (0.7-1.2) 07/30/17 06:55 Est GFR ( Amer) > 60 07/30/17 06:55 Est GFR (Non-Af Amer) 60 07/30/17 06:55 POC Glucose (mg/dL) 238 mg/dL (65-110) H 07/31/17 11:35 Random Glucose 98 mg/dL (65-105) 07/30/17 06:55 Hemoglobin A1c 8.3 % (4.2-6.5) H 07/18/17 07:22 Calcium 8.0 mg/dl (8.6-10.4) L 07/30/17 06:55 Phosphorus 3.2 mg/dL (2.5-4.5) 07/31/17 07:14 Magnesium 1.6 mg/dL (1.6-2.3) 07/31/17 07:14 Iron 27 ug/dL (37-170) L 07/25/17 08:01 TIBC 313 ug/dL (250-450) 07/25/17 08:01 % Saturation 9 (20-55) L 07/25/17 08:01 Ferritin 30.1 ng/mL 07/24/17 08:27 Total Bilirubin 0.8 mg/dL (0.2-1.3) 07/30/17 06:55 AST 30 U/L (14-36) 07/30/17 06:55 ALT 35 U/L (9-52) 07/30/17 06:55 Alkaline Phosphatase 171 U/L (38-126) H 07/30/17 06:55 Troponin I 0.0410 ng/mL (0.00-0.120) 07/17/17 22:25 NT-Pro-B Natriuret Pep 2850 pg/mL (0-900) H 07/17/17 22:25 Total Protein 6.9 g/dL (6.3-8.3) 07/30/17 06:55 Albumin 2.9 g/dL (3.5-5.0) L 07/30/17 06:55 Globulin 4.0 gm/dL (2.2-3.9) H 07/30/17 06:55 Albumin/Globulin Ratio 0.7 (1.0-2.1) L 07/30/17 06:55 Triglycerides 56 mg/dL (0-149) 07/20/17 08:23 Cholesterol 126 mg/dL (0-199) 07/20/17 08:23 LDL Cholesterol Direct 59 mg/dL (0-129) 07/20/17 08:23 HDL Cholesterol 45 mg/dL (30-70) 07/20/17 08:23 Vitamin B12 > 1000 pg/mL (239-931) H 07/24/17 08:27 Folate > 20.0 ng/mL 07/24/17 08:27 Free T4 1.17 ng/dL (0.78-2.19) 07/18/17 07:46 TSH 3rd Generation 2.49 mIU/L (0.46-4.68) 07/18/17 07:22 Venous Blood Potassium 4.7 mmol/L (3.6-5.2) 07/17/17 22:28 Stool Occult Blood Positive (NEGATIVE) H 07/25/17 14:11 Serum Ketones Negative (NEGATIVE) 07/17/17 22:25 Hepatitis A IgM Ab Negative (NEGATIVE) 07/28/17 08:00 Hep Bs Antigen Negative (NEGATIVE) 07/28/17 08:00 Hep B Core IgM Ab Negative (NEGATIVE) 07/28/17 08:00 Hepatitis C Antibody Negative (NEGATIVE) 07/28/17 08:00 - Hospital Course Hospital Course: HPI Patient is an 87 yo female, with PMHx of Afib, HTN, COPD, T2DM, hyperlipidemia, CHF, PVD, depression, and chronic non-healing ulcers and diabetic foot 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 for non healing wounds. Per patient her leg swelling/wounds are starting to hurt her more recently and she has no longer been able to walk. She reports being able to use a walker until as recently as "3-4 months ago" but [facility]. She admits it has been so long since she walked "she feels weak" in her extremities. Patient also reports urinary incontinence, which she has "had for awhile" that she wears adult diapers for. She states that by the time she gets the urge she cannot make it to the bathroom in time with her legs in this condition. Patient denies feeling short of breath. She denies orthopnea, but admits preferring to use two pillows for sleep. As per transfer paperwork "pt. non compliant with meds and wound treatment." Patient admits taking xarelto/ metoprolol daily for her afib. She denies recent falls, fever, chills, headache , chest pain, abdominal pain, N/V/D/C. Hospital Course Patient was admitted for non-healing bilateral feet ulcers, CHF, A-fib. CXR showed prominent diffuse increased interstitial lung markings suggestive for a moderate venous congestion, consolidative changes at the left lung base with small left pleural effusion, and scattered densities in the upper lung zones with left being greater than right. ECHO was done on 03/11/17 and showed EF 60% with reversible restrictive diastolic dysfunction. Patient refused follow up ECHO. Podiatry consult was placed and the plans were wound cleansed and continue with IV antibiotics. Venous duplex scan of bilateral lower extremities was done and showed no evidence of deep or superficial vein thrombosis but mid to distal femoral, posterior tibial and peroneal veins were not visualized to severe edema. Lower extremity ultrasound was done and showed no evidence of significant arterial insufficiency. Vascular surgery consult was placed and the plan was to continue with medical management. Surgery recommended CTA but patient refused. ID consult was placed and plans were MDRO from wounds, continue meds, vascular eval and wound care. Patient accepted ECHO and results showed EF of 45.1% with dilated cardiac chambers. Cultures from 07/18/17 resulted proteus mirabilis, beta hemolytic strep group b, and pseudomonas aeruginosa. Patient is to stay for a few days on tiglecycline per Dr. Grimaldo. GI consult was placed and plans were colonoscopy and check Hb. Patient initially refused Picc placement but a single lumen picc right basilic vein was placed on 07/29/17. Patient was stable for discharge. Patient will follow up with Dr. Mack in outpatient basis. Patient was discharged with tiglecycline for 7 days. - Date & Time of H&P Date of H&P: 07/31/17 Time of H&P: 17:25 Discharge Exam - Head Exam Head Exam: NORMAL INSPECTION - Eye Exam Eye Exam: EOMI, Normal appearance - ENT Exam ENT Exam: Mucous Membranes Moist - Additional Findings Additional findings: Constitutional Appears: Non-toxic - Head Exam Head Exam: NORMAL INSPECTION - Eye Exam Eye Exam: EOMI, Normal appearance - ENT Exam ENT Exam: Mucous Membranes Moist - Neck Exam Neck Exam: Full ROM - Respiratory Exam Respiratory Exam: NORMAL BREATHING PATTERN. absent: Accessory Muscle Use - Cardiovascular Exam Cardiovascular Exam: +S1, +S2. absent: Bradycardia, Tachycardia - GI/Abdominal Exam GI & Abdominal Exam: Soft. absent: Tenderness - Extremities Exam Extremities Exam: Full ROM. absent: Pedal Edema Additional comments: picc line in place on right arm. no erythema, hematoma, leakage - Neurological Exam Neurological Exam: Alert, Awake - Psychiatric Exam Psychiatric exam: Normal Affect, Normal Mood - Skin Skin Exam: Dry Additional comments: ulcers on right and left lower extremities covered by dressings, dressings changed by podiatry at bedside. Discharge Plan - Follow Up Plan Condition: FAIR Disposition: REHAB FACILITY/REHAB UNIT Instructions: Heart Failure (DC), Pacemaker (DC), Pulmonary Edema (DC), Ascites (DC) Additional Instructions: patient is to follow up with Dr Mack podiatry for wound care and continue on tiglecycline four seven days starting 08/01/17 ending 08/07/17 patient is to stay on probiotics but to take probiotics two hours after taking antibiotic dose. Referrals: Nicholas Mack DPM [[facility]] -
[2017-07-31 15:38] LABS: ALB/GLOB RATIO 0.6 (1.0-2.1); ALKALINE PHOSPHATASE 127 U/L (38-126); ALT/SGPT 34 U/L (9-52); AST/SGOT 24 U/L (14-36); BILIRUBIN,TOTAL 0.4 mg/dL (0.2-1.3); BLOOD UREA NITROGEN 30 mg/dL (7-17); CARBON DIOXIDE 27 mmol/L (22-30); CHLORIDE 106 mmol/L (98-107); GFR AFRICAN-AMERICAN > 60; GLUCOSE,RANDOM 133 mg/dL (65-105); POTASSIUM 3.2 mmol/L (3.6-5.2); TOTAL PROTEIN 6.4 g/dL (6.3-8.3)
[2017-07-31 17:10] VITALS: BP 162/74; PULSE 56; TEMP 98; O2SAT 100
[2017-07-31] MEDS ORDERED: Potassium Chloride 20 mEq ER Tab PO ONE (18:00)
[2017-08-04 10:20] LABS: SODIUM 141 mmol/L (132-148)
== END 2017-07-31 22:00 | DRG 300 ==
LOC: C.ER 21:06 → C.9E 07-18 00:45 → C.3T 07-18 13:12
PROVIDERS: ADMIT Family Medicine; ATTEND Family Medicine
PROC: 02HV33Z Insertion of Infusion Device into Superior Vena Cava, Percutaneous Approach (ICD-10-PCS; principal; 2017-07-29)
DX: I70.25 Atherosclerosis of native arteries of other extremities with ulceration (principal); I48.1 Persistent atrial fibrillation; E11.621 Type 2 diabetes mellitus with foot ulcer; I11.0 Hypertensive heart disease with heart failure; I50.32 Chronic diastolic (congestive) heart failure; L03.115 Cellulitis of right lower limb; L03.116 Cellulitis of left lower limb; K92.1 Melena; Z91.14 Patient's other noncompliance with medication regimen; L98.499 Non-pressure chronic ulcer of skin of other sites with unspecified severity; J44.9 Chronic obstructive pulmonary disease, unspecified; E78.00 Pure hypercholesterolemia, unspecified; F41.9 Anxiety disorder, unspecified; R32 Unspecified urinary incontinence; G47.00 Insomnia, unspecified; I87.8 Other specified disorders of veins; D64.9 Anemia, unspecified

== ENCOUNTER 2017-11-21 15:55 | Inpatient (IN) | payer MEDICARE, OTHER ==
[2017-11-21 15:56] VITALS: BMI 30.2
[2017-11-21 16:55] LABS: VENOUS BLOOD GAS BASE EXCESS -5.9 mmol/L (0.0-2.0); VENOUS BLOOD GAS PCO2 46 mmHg (40-60); VENOUS BLOOD GAS PO2 21 mm/Hg (30-55); VENOUS BLOOD PH 7.27 (7.32-7.43)
[2017-11-21 17:05] LABS: BASO % 1.1 % (0.0-2.0); EOS % 0.6 % (0.0-4.0); LYMPH % 12.4 % (20.0-40.0); MEAN CORPUSCULAR HEMOGLOBIN 23.2 pg (27.0-31.0); MEAN CORPUSCULAR HGB CONC 30.1 g/dL (33.0-37.0); MEAN PLATELET VOLUME 9.6 fL (7.2-11.7); MONO % 13.3 % (0.0-10.0); NEUT % 72.6 % (50.0-75.0); NRBC % 1.8 % (0.0-2.0); RBC 3.86 Mil/uL (3.80-5.20); RED CELL DISTRIBUTION WIDTH 20.2 % (11.5-14.5)
[2017-11-21 17:06] LABS: WHITE BLOOD COUNT 3.3 K/uL (4.8-10.8)
[2017-11-21 17:07] LABS: NEUT # 2.4 K/uL (1.8-7.0)
[2017-11-21 17:08] LABS: LYMPH # 0.4 K/uL (1.0-4.3); MONO # 0.5 K/uL (0.0-0.8)
[2017-11-21 17:09] LABS: ALB/GLOB RATIO 0.8 (1.0-2.1); ALBUMIN 3.9 g/dL (3.5-5.0); CALCIUM 9.4 mg/dl (8.6-10.4); INR 1.9; PROTHROMBIN TIME 22.2 SECONDS (9.7-12.2)
--- NOTE | 2017-11-21 17:14 | C.PDOC ---
History Of Present Illness <Mary Carter - Last Filed: 11/21/17 17:58> <Na Orr - Last Filed: 11/21/17 20:34> 87 year old female presents to the ED after being sent from [facility] for evaluation of elevated blood pressure and lethargy which began today. Patient denies pain and has no complaints at this time. Patient has a history of Alzheimer's Disease and is a poor historian. (Mary Carter) History Per: Patient History/Exam Limitations: other (poor historian ) Current Symptoms Are (Timing): Still Present <Mary Carter - Last Filed: 11/21/17 17:58> <Na Orr - Last Filed: 11/21/17 20:34> Time Seen by Provider: 11/21/17 16:09 Chief Complaint (Nursing): Weakness/Neurological Deficit Past Medical History Reviewed: Historical Data, Nursing Documentation, Vital Signs - Medical History PMH: Alzheimer's Disease, Anxiety, Atrial Fibrillation, CHF, COPD, Dementia, Depression, Diabetes, HTN, Hypercholesterolemia, Peripheral Edema Denies: Chronic Kidney Disease Surgical History: No Surg Hx Family History: States: Unknown Family Hx - Social History Hx Tobacco Use: No Hx Alcohol Use: No Hx Substance Use: No - Immunization History Hx Tetanus Toxoid Vaccination: No Hx Influenza Vaccination: No Hx Pneumococcal Vaccination: No <Mary Carter - Last Filed: 11/21/17 17:58> Vital Signs: Last Vital Signs Temp 92.0 F L 11/21/17 18:10 Pulse 64 11/21/17 18:10 Resp 14 11/21/17 18:10 BP 137/89 11/21/17 18:10 Pulse Ox 100 11/21/17 18:10 - [facility] Procedures INJECT/INFUSE NEC (11/24/12) INSERTION OF INFUSION DEV INTO SUP VENA CAVA, PERC APPROACH (07/18/17) NONEXCIS DEBRID OF WOUND, INFECT, OR BURN (01/19/13) Review Of Systems Review Of Systems: ROS cannot be obtained secondary to pt's inabilty to answer questions. <Mary Carter - Last Filed: 11/21/17 17:58> Physical Exam - Physical Exam Appears: Non-toxic, No Acute Distress, Other (obese) Skin: Normal Color, Warm, Dry, No Rash Head: Atraumatic, Normacephalic Eye(s): bilateral: Normal Inspection Oral Mucosa: Moist Neck: Normal ROM, Supple Chest: Symmetrical, No Deformity, No Tenderness Cardiovascular: Rhythm Regular, No Murmur Respiratory: Rales, No Rhonchi, No Wheezing Gastrointestinal/Abdominal: Bowel Sounds (active), Soft, No Tenderness Back: Normal Inspection Extremity: Normal ROM, Capillary Refill (less than 2 seconds ), No Swelling Neurological/Psych: Other (Oriented to person only, but answers questions. Patient is at baseline according to snf notes. ) <Mary Carter - Last Filed: 11/21/17 17:58> ED Course And Treatment - Laboratory Results Result Diagrams: 11/21/17 16:47 11/21/17 16:47 O2 Sat by Pulse Oximetry: 96 (on RA ) Pulse Ox Interpretation: Normal <Mary Carter - Last Filed: 11/21/17 17:58> - Laboratory Results Result Diagrams: 11/21/17 16:47 11/21/17 16:47 <Na Orr - Last Filed: 11/21/17 20:34> Central Line Placement - Central Line Placement Indication: Unable To Obtain Adequate Peripheral Access Central Line Placement: Right: Internal Jugular The Area Was Thoroughly Prepared With: Chlorhexidine Area Was Locally Anesthetized With: Lidocaine 1% Procedure: Triple Lumen, Placed Using Standard Seldinger Technique, Catheter Was Sewn Into Place, Sterile Dressing Placed Over Line, Procedure Tolerated Well , CXR Ordered To Confirm Placement <Na Orr - Last Filed: 11/21/17 20:34> Medical Decision Making <Mary Carter - Last Filed: 11/21/17 17:58> <Na Orr - Last Filed: 11/21/17 20:34> Medical Decision Making: Progress: Bloodwork, UA, CXR, EKG ordered and reviewed. Lacated Ringers IV administered. Patient has rectal temperature of 91 in ED. the patient has been found to have elevated Lactate. Code sepsis called. NS IVF continued. Avelox and Vancomycin ordered to cover for Pneumonia. The case was discussed with Dr. Pittman (hospitalist) who states to admit the patient to Dr. Esquivel to tele. (Mary Carter) Disposition - Disposition Disposition Time: 17:55 - POA Present On Arrival: None <Mary Carter - Last Filed: 11/21/17 17:58> <Na Orr - Last Filed: 11/21/17 20:34> - Disposition Disposition: HOME/ ROUTINE Condition: SERIOUS - Clinical Impression Clinical Impression: Hypothermia, Sepsis, Pneumonia - PA / MED AIDE / Resident Statement MD/DO has reviewed & agrees with the documentation as recorded. - Scribe Statement The provider has reviewed the documentation as recorded by the Scribe (Shanita Bowen) <Mary Carter - Last Filed: 11/21/17 17:58> <Na Orr - Last Filed: 11/21/17 20:34> - Scribe Statement All medical record entries made by the Scribe were at my direction and personally dictated by me. I have reviewed the chart and agree that the record accurately reflects my personal performance of the history, physical exam, medical decision making, and the department course for this patient. I have also personally directed, reviewed, and agree with the discharge instructions and disposition. (Mary Carter)
[2017-11-21 17:28] LABS: SQUAMOUS EPITHIAL 3 /hpf (0-5); URINE BACTERIA RARE (<OCC); URINE BILIRUBIN NEGATIVE (NEGATIVE); URINE BLOOD NEGATIVE (NEGATIVE); URINE CLARITY Hazy (Clear); URINE COLOR Amber (YELLOW); URINE GLUCOSE (UA) NORMAL (Normal); URINE LEUKOCYTE ESTERASE NEG Leu/uL (Negative); URINE PROTEIN 2+ mg/dL (NEGATIVE)
[2017-11-21] MEDS ORDERED: Vancomycin 1 gm/NS 200 ml 1 GM/200 ML BAG IVPB STA (17:35)
[2017-11-21] MEDS ORDERED: Moxifloxacin IV 400mg/250ml NS 400 MG/250 ML BAG IVPB SCH (17:45)
[2017-11-21] MEDS ORDERED: Lactated Ringer's 1,000 ML ONE (18:11)
[2017-11-21] MEDS: Ciprofloxacin 400mg/200ml D5W 400 MG/200 ML BAG IVPB SCH (19:00)
[2017-11-21 19:48] LABS: VENOUS BLOOD GAS BASE EXCESS -5.5 mmol/L (0.0-2.0); VENOUS BLOOD GAS PCO2 42 mmHg (40-60); VENOUS BLOOD GAS PO2 25 mm/Hg (30-55)
[2017-11-21] MEDS: Sodium Chloride 0.9% 1,000 ML IV SCH (20:30)
--- NOTE | 2017-11-21 23:47 | CP.PCM.HP ---
<PattiMaryan - Last Filed: 11/22/17 01:01> History of Present Illness - History of Present Illness History of Present Illness: CC Lethargy Patient is an 87 yo female, with PMHx of Afib, HTN, COPD, T2DM, hyperlipidemia, CHF, PVD, depression, and chronic non-healing ulcers and diabetic foot ulcers to bilateral lower extremities, who presents to [facility] from [facility] for evaluation of elevated blood pressure and lethargy. Patient has no complaints at this time. Patient has a history of Alzheimer's disease and is a poor historian. In Emergency room, patient was found to have an elevated potassium level, dehydrated, and was given fluids and warming blanket. Patient was also given a TLC PMHx: Afib, HTN, COPD, T2DM, hyperlipidemia, CHF, PVD, chronic diabetic ulcers to bilateral lower extremities (right anterior arango having small nonhealing ulcers and dry surrounding skin without erythema, right anterior foot having 1.5x1.5" nonhealing ulcer, left foot having nonhealing ulcers and left arango having a large irregularly demarcated nonhealing ulcer) PSHx: 2 c-sections FHx: denies allergies: Ertapenem sodium (rash) Social History: Lives in a [facility], denies tobacco, ETOH and illicit drug use. PMD: [place] Monitor: Dr. Mack Present on Admission - Present on Admission Any Indicators Present on Admission: No History of DVT/PE: No History of Uncontrolled Diabetes: Yes Past Patient History - Infectious Disease Hx of Infectious Diseases: None - Tetanus Immunizations Tetanus Immunization: Unknown - Past Medical History & Family History Past Medical History?: Yes - Past Social History Smoking Status: Never Smoked - CARDIAC Hx Atrial Fibrillation: Yes Hx Congestive Heart Failure: Yes Hx Hypercholesterolemia: Yes Hx Hypertension: Yes Hx Peripheral Edema: Yes - PULMONARY Hx Chronic Obstructive Pulmonary Disease (COPD): Yes - NEUROLOGICAL Hx Alzheimer's Disease: Yes Hx Dementia: Yes - HEENT Hx HEENT Problems: No - RENAL Hx Chronic Kidney Disease: No - ENDOCRINE/METABOLIC Hx Diabetes Mellitus Type 2: Yes - HEMATOLOGICAL/ONCOLOGICAL Hx Blood Disorders: No Hx Blood Transfusions: No Hx Blood Transfusion Reaction: No - INTEGUMENTARY Hx Dermatological Problems: Yes Other/Comment: Hx Diabetic foot ulcer and non healing wound - MUSCULOSKELETAL/RHEUMATOLOGICAL Hx Musculoskeletal Disorders: Yes Hx Falls: Yes - GASTROINTESTINAL Hx Gastrointestinal Disorders: No - GENITOURINARY/GYNECOLOGICAL Hx Genitourinary Disorders: Yes Hx Urinary Tract Infection: Yes - PSYCHIATRIC Hx Anxiety: Yes Hx Depression: Yes Hx Substance Use: No - SURGICAL HISTORY Hx Surgeries: Yes Hx Section: Yes (x2) - ANESTHESIA Hx Anesthesia: Yes Hx Anesthesia Reactions: No Hx Malignant Hyperthermia: No Meds Allergies/Adverse Reactions: Allergies Allergy/AdvReac Type Severity Reaction Status Date / Time ertapenem sodium Allergy Verified 11/21/17 16:07 [From Invanz] Physical Exam - Constitutional Appears: Non-toxic, No Acute Distress - Head Exam Head Exam: ATRAUMATIC, NORMAL INSPECTION, NORMOCEPHALIC - Eye Exam Eye Exam: EOMI, Normal appearance Pupil Exam: NORMAL ACCOMODATION, PERRL - ENT Exam ENT Exam: Mucous Membranes Dry, Normal Exam - Neck Exam Neck exam: Positive for: Normal Inspection - Respiratory Exam Respiratory Exam: Clear to Auscultation Bilateral, NORMAL BREATHING PATTERN. absent: Accessory Muscle Use - Cardiovascular Exam Cardiovascular Exam: REGULAR RHYTHM, +S1, +S2. absent: Bradycardia, Tachycardia - GI/Abdominal Exam GI & Abdominal Exam: Distended, Normal Bowel Sounds. absent: Firm, Guarding - Extremities Exam Extremities exam: Positive for: pedal edema (patient has 2+ pitting edema to anterior shins). Negative for: tenderness (diabetic nephropathy) Additional comments: (right anterior arango having small nonhealing ulcers and dry surrounding skin without erythema, right anterior foot having 1.5x1.5" nonhealing ulcer, left foot having nonhealing ulcers and left arango having a large irregularly demarcated nonhealing ulcer) - Neurological Exam Neurological exam: CN II-XII Intact, Reflexes Normal - Psychiatric Exam Psychiatric exam: Normal Affect, Normal Mood - Skin Skin Exam: Warm Results - Vital Signs Recent Vital Signs: Last Vital Signs Temp 94.5 F L 11/21/17 20:21 Pulse 58 L 11/21/17 21:21 Resp 17 11/21/17 21:21 BP 139/74 11/21/17 21:21 Pulse Ox 99 11/21/17 21:21 - Labs Result Diagrams: 11/22/17 00:41 11/22/17 00:41 Labs: Laboratory Results - last 24 hr 11/21/17 11/21/17 11/21/17 16:07 16:47 16:47 WBC 3.3 L RBC 3.86 Hgb 9.0 L Hct 29.8 L MCV 77.0 L D MCH 23.2 L MCHC 30.1 L RDW 20.2 H Plt Count 162 MPV 9.6 Neut % (Auto) 72.6 Lymph % (Auto) 12.4 L [place] % (Auto) 13.3 H Eos % (Auto) 0.6 Baso % (Auto) 1.1 Neut # (Auto) 2.4 Lymph # (Auto) 0.4 L [place] # (Auto) 0.5 Eos # (Auto) 0.0 Baso # (Auto) 0.0 PT 22.2 H INR 1.9 APTT 40 H pO2 VBG pH VBG pCO2 VBG HCO3 VBG Total CO2 VBG O2 Sat (Calc) VBG Base Excess VBG Potassium Glucose Lactate Crit Value Called To Crit Value Called By Crit Value Read Back Blood Gas Notified Time Sodium Potassium Chloride Carbon Dioxide Anion Gap BUN Creatinine Est GFR ( Amer) Est GFR (Non-Af Amer) POC Glucose (mg/dL) 160 H Random Glucose Lactic Acid Calcium Phosphorus Magnesium Total Bilirubin AST ALT Alkaline Phosphatase Total Protein Albumin Globulin Albumin/Globulin Ratio Venous Blood Potassium Urine Color Urine Clarity Urine pH Ur Specific [place] Urine Protein Urine Glucose (UA) Urine Ketones Urine Blood Urine Nitrate Urine Bilirubin Urine Urobilinogen Ur Leukocyte Esterase Urine WBC (Auto) Urine RBC (Auto) Ur Squamous Epith Cells Urine Bacteria Hyaline Casts 11/21/17 11/21/17 11/21/17 16:47 16:52 17:16 WBC RBC Hgb Hct MCV MCH MCHC RDW Plt Count MPV Neut % (Auto) Lymph % (Auto) [place] % (Auto) Eos % (Auto) Baso % (Auto) Neut # (Auto) Lymph # (Auto) [place] # (Auto) Eos # (Auto) Baso # (Auto) PT INR APTT pO2 21 L VBG pH 7.27 L VBG pCO2 46 VBG HCO3 18.4 VBG Total CO2 22.5 VBG O2 Sat (Calc) 26.0 L VBG Base Excess -5.9 L VBG Potassium 5.9 H Glucose 157 H Lactate 3.8 H Crit Value Called To Crit Value Called By Crit Value Read Back Blood Gas Notified Time Sodium 146 145.0 Potassium 6.1 H Chloride 110 H 114.0 H Carbon Dioxide 20 L Anion Gap 23 H BUN 44 H Creatinine 1.6 H Est GFR ( Amer) 37 Est GFR (Non-Af Amer) 31 POC Glucose (mg/dL) Random Glucose 147 H Lactic Acid Calcium 9.4 Phosphorus 4.8 H Magnesium 2.2 Total Bilirubin 1.1 AST 53 H D ALT 44 Alkaline Phosphatase 158 H D Total Protein 8.8 H Albumin 3.9 Globulin 4.9 H Albumin/Globulin Ratio 0.8 L Venous Blood Potassium 5.9 H Urine Color [place] Urine Clarity Hazy Urine pH 5.0 Ur Specific [place] 1.018 Urine Protein 2+ H Urine Glucose (UA) Normal Urine Ketones Negative Urine Blood Negative Urine Nitrate Negative Urine Bilirubin Negative Urine Urobilinogen 2.0 H Ur Leukocyte Esterase Neg Urine WBC (Auto) 1 Urine RBC (Auto) 2 Ur Squamous Epith Cells 3 Urine Bacteria Rare Hyaline Casts 11-20 H 11/21/17 11/21/17 17:32 19:42 WBC RBC Hgb Hct MCV MCH MCHC RDW Plt Count MPV Neut % (Auto) Lymph % (Auto) [place] % (Auto) Eos % (Auto) Baso % (Auto) Neut # (Auto) Lymph # (Auto) [place] # (Auto) Eos # (Auto) Baso # (Auto) PT INR APTT pO2 25 L VBG pH 7.30 L VBG pCO2 42 VBG HCO3 19.0 VBG Total CO2 22.0 VBG O2 Sat (Calc) 46.4 VBG Base Excess -5.5 L VBG Potassium 6.5 H* Glucose 181 H Lactate 4.0 H* Crit Value Called To Clara scherer rn Crit Value Called By Joseph Crit Value Read Back Y Blood Gas Notified Time 1947 Sodium 145.0 Potassium Chloride 115.0 H Carbon Dioxide Anion Gap BUN Creatinine Est GFR ( Amer) Est GFR (Non-Af Amer) POC Glucose (mg/dL) Random Glucose Lactic Acid 3.9 H Calcium Phosphorus Magnesium Total Bilirubin AST ALT Alkaline Phosphatase Total Protein Albumin Globulin Albumin/Globulin Ratio Venous Blood Potassium 6.5 H* Urine Color Urine Clarity Urine pH Ur Specific [place] Urine Protein Urine Glucose (UA) Urine Ketones Urine Blood Urine Nitrate Urine Bilirubin Urine Urobilinogen Ur Leukocyte Esterase Urine WBC (Auto) Urine RBC (Auto) Ur Squamous Epith Cells Urine Bacteria Hyaline Casts Assessment & Plan - Assessment and Plan (Free Text) Assessment: sepsis, elevated lactate, hypothermia Ciprofloxacin 400mg IVP Q24H Doxycycline 100mg IVPB Q12H Rocephin 1gm IVPB daily monitor vitals PMHx of Afib Xarelto 20mg POQD ASA 81mg PO QD HTN metoprolol 50mg PO QD (home med) COPD monitor vitals T2DM Januvia 50mg POQD accucheck Q6h hyperlipidemia CHF prior echo 07/2017, ef <50, diastolic dysfunction PVD chronic non-healing ulcers and diabetic foot ulcers to bilateral lower extremities podiatry: Dr. Mack NS @ 100cc/hr depression - Date & Time Date: 11/22/17 Time: 01:03 <Isacc Esquivel P - Last Filed: 11/22/17 01:22> Results - Vital Signs Recent Vital Signs: Last Vital Signs Temp 95 F L 11/22/17 00:44 Pulse 72 11/22/17 00:44 Resp 18 11/22/17 00:44 BP 128/61 11/22/17 00:44 Pulse Ox 98 11/22/17 00:44 - Labs Result Diagrams: 11/22/17 00:41 11/22/17 00:41 Labs: Laboratory Results - last 24 hr 11/21/17 11/21/17 11/21/17 16:07 16:47 16:47 WBC 3.3 L RBC 3.86 Hgb 9.0 L Hct 29.8 L MCV 77.0 L D MCH 23.2 L MCHC 30.1 L RDW 20.2 H Plt Count 162 MPV 9.6 Neut % (Auto) 72.6 Lymph % (Auto) 12.4 L [place] % (Auto) 13.3 H Eos % (Auto) 0.6 Baso % (Auto) 1.1 Neut # (Auto) 2.4 Lymph # (Auto) 0.4 L [place] # (Auto) 0.5 Eos # (Auto) 0.0 Baso # (Auto) 0.0 PT 22.2 H INR 1.9 APTT 40 H pO2 VBG pH VBG pCO2 VBG HCO3 VBG Total CO2 VBG O2 Sat (Calc) VBG Base Excess VBG Potassium Glucose Lactate Crit Value Called To Crit Value Called By Crit Value Read Back Blood Gas Notified Time Sodium Potassium Chloride Carbon Dioxide Anion Gap BUN Creatinine Est GFR ( Amer) Est GFR (Non-Af Amer) POC Glucose (mg/dL) 160 H Random Glucose Lactic Acid Calcium Phosphorus Magnesium Total Bilirubin AST ALT Alkaline Phosphatase Total Protein Albumin Globulin Albumin/Globulin Ratio Venous Blood Potassium Urine Color Urine Clarity Urine pH Ur Specific [place] Urine Protein Urine Glucose (UA) Urine Ketones Urine Blood Urine Nitrate Urine Bilirubin Urine Urobilinogen Ur Leukocyte Esterase Urine WBC (Auto) Urine RBC (Auto) Ur Squamous Epith Cells Urine Bacteria Hyaline Casts 11/21/17 11/21/17 11/21/17 16:47 16:52 17:16 WBC RBC Hgb Hct MCV MCH MCHC RDW Plt Count MPV Neut % (Auto) Lymph % (Auto) [place] % (Auto) Eos % (Auto) Baso % (Auto) Neut # (Auto) Lymph # (Auto) [place] # (Auto) Eos # (Auto) Baso # (Auto) PT INR APTT pO2 21 L VBG pH 7.27 L VBG pCO2 46 VBG HCO3 18.4 VBG Total CO2 22.5 VBG O2 Sat (Calc) 26.0 L VBG Base Excess -5.9 L VBG Potassium 5.9 H Glucose 157 H Lactate 3.8 H Crit Value Called To Crit Value Called By Crit Value Read Back Blood Gas Notified Time Sodium 146 145.0 Potassium 6.1 H Chloride 110 H 114.0 H Carbon Dioxide 20 L Anion Gap 23 H BUN 44 H Creatinine 1.6 H Est GFR ( Amer) 37 Est GFR (Non-Af Amer) 31 POC Glucose (mg/dL) Random Glucose 147 H Lactic Acid Calcium 9.4 Phosphorus 4.8 H Magnesium 2.2 Total Bilirubin 1.1 AST 53 H D ALT 44 Alkaline Phosphatase 158 H D Total Protein 8.8 H Albumin 3.9 Globulin 4.9 H Albumin/Globulin Ratio 0.8 L Venous Blood Potassium 5.9 H Urine Color [place] Urine Clarity Hazy Urine pH 5.0 Ur Specific [place] 1.018 Urine Protein 2+ H Urine Glucose (UA) Normal Urine Ketones Negative Urine Blood Negative Urine Nitrate Negative Urine Bilirubin Negative Urine Urobilinogen 2.0 H Ur Leukocyte Esterase Neg Urine WBC (Auto) 1 Urine RBC (Auto) 2 Ur Squamous Epith Cells 3 Urine Bacteria Rare Hyaline Casts 11-20 H 11/21/17 11/21/17 11/22/17 17:32 19:42 00:41 WBC 3.4 L RBC 3.51 L Hgb 8.0 L Hct 26.5 L MCV 75.4 L MCH 22.9 L MCHC 30.4 L RDW 20.1 H Plt Count 152 MPV 8.8 Neut % (Auto) 75.8 H Lymph % (Auto) 9.8 L [place] % (Auto) 13.9 H Eos % (Auto) 0.1 Baso % (Auto) 0.4 Neut # (Auto) 2.6 Lymph # (Auto) 0.3 L [place] # (Auto) 0.5 Eos # (Auto) 0.0 Baso # (Auto) 0.0 PT INR APTT pO2 25 L VBG pH 7.30 L VBG pCO2 42 VBG HCO3 19.0 VBG Total CO2 22.0 VBG O2 Sat (Calc) 46.4 VBG Base Excess -5.5 L VBG Potassium 6.5 H* Glucose 181 H Lactate 4.0 H* Crit Value Called To Clara scherer rn Crit Value Called By Joseph Crit Value Read Back Y Blood Gas Notified Time 1947 Sodium 145.0 Potassium Chloride 115.0 H Carbon Dioxide Anion Gap BUN Creatinine Est GFR ( Amer) Est GFR (Non-Af Amer) POC Glucose (mg/dL) Random Glucose Lactic Acid 3.9 H Calcium Phosphorus Magnesium Total Bilirubin AST ALT Alkaline Phosphatase Total Protein Albumin Globulin Albumin/Globulin Ratio Venous Blood Potassium 6.5 H* Urine Color Urine Clarity Urine pH Ur Specific [place] Urine Protein Urine Glucose (UA) Urine Ketones Urine Blood Urine Nitrate Urine Bilirubin Urine Urobilinogen Ur Leukocyte Esterase Urine WBC (Auto) Urine RBC (Auto) Ur Squamous Epith Cells Urine Bacteria Hyaline Casts 11/22/17 11/22/17 00:41 00:41 WBC RBC Hgb Hct MCV MCH MCHC RDW Plt Count MPV Neut % (Auto) Lymph % (Auto) [place] % (Auto) Eos % (Auto) Baso % (Auto) Neut # (Auto) Lymph # (Auto) [place] # (Auto) Eos # (Auto) Baso # (Auto) PT INR APTT pO2 VBG pH VBG pCO2 VBG HCO3 VBG Total CO2 VBG O2 Sat (Calc) VBG Base Excess VBG Potassium Glucose Lactate Crit Value Called To Crit Value Called By Crit Value Read Back Blood Gas Notified Time Sodium 145 Potassium 5.9 H Chloride 111 H Carbon Dioxide 19 L Anion Gap 21 H BUN 44 H Creatinine 1.6 H Est GFR ( Amer) 37 Est GFR (Non-Af Amer) 31 POC Glucose (mg/dL) Random Glucose 145 H Lactic Acid 2.3 H Calcium 9.1 Phosphorus Magnesium 2.0 Total Bilirubin 0.8 AST 45 H ALT 47 Alkaline Phosphatase 138 H Total Protein 7.7 Albumin 3.4 L Globulin 4.3 H Albumin/Globulin Ratio 0.8 L Venous Blood Potassium Urine Color Urine Clarity Urine pH Ur Specific [place] Urine Protein Urine Glucose (UA) Urine Ketones Urine Blood Urine Nitrate Urine Bilirubin Urine Urobilinogen Ur Leukocyte Esterase Urine WBC (Auto) Urine RBC (Auto) Ur Squamous Epith Cells Urine Bacteria Hyaline Casts Attending/Attestation - Attestation I have personally seen and examined this patient.: Yes I have fully participated in the care of the patient.: Yes I have reviewed all pertinent clinical information: Yes Notes (Text): Assessment * Hypothermia, elevated lactate, normal and maintained bp, DD of dehyration, low intravascular volume suspected with peripheral edema/3rd spacing, infection/ bactremia, hypothyroid/hypocortisol, s/e of meds ie metformin/acei * Hyperkalemia * Chronic venous insufficiency ulcers * DM * Pulm htn * Central line right IJ inserted in ER for purpose of iv access. * H/o afib on xeralto. Plan * IVF monitor output, labs, cortisol, tsh, procalcitonin * Empiric non nephrotoxic abx rocephin and doxy * Hold on ACEI, metformin * kayexlate single dose * Continue xeralto will also be prhylactic for dvt * gi prophylaxis * See orders for detail.
[2017-11-22 00:45] LABS: BASO % 0.4 % (0.0-2.0); EOS % 0.1 % (0.0-4.0); LYMPH # 0.3 K/uL (1.0-4.3); LYMPH % 9.8 % (20.0-40.0); MEAN CELL VOLUME 75.4 fL (81.0-99.0); MEAN CORPUSCULAR HEMOGLOBIN 22.9 pg (27.0-31.0); MEAN CORPUSCULAR HGB CONC 30.4 g/dL (33.0-37.0); MEAN PLATELET VOLUME 8.8 fL (7.2-11.7); MONO # 0.5 K/uL (0.0-0.8); MONO % 13.9 % (0.0-10.0); NEUT # 2.6 K/uL (1.8-7.0); NEUT % 75.8 % (50.0-75.0); NRBC % 1.9 % (0.0-2.0); PLATELET COUNT 152 K/uL (130-400); RBC 3.51 Mil/uL (3.80-5.20); RED CELL DISTRIBUTION WIDTH 20.1 % (11.5-14.5); WHITE BLOOD COUNT 3.4 K/uL (4.8-10.8)
[2017-11-22 00:59] LABS: ALB/GLOB RATIO 0.8 (1.0-2.1); ALBUMIN 3.4 g/dL (3.5-5.0); CALCIUM 9.1 mg/dl (8.6-10.4)
[2017-11-22] MEDS ORDERED: Sod Polystyrene Sulf 15 gm/60 ml Susp PO ONE (01:22)
[2017-11-22 02:38] LABS: LYMPHOCYTE 18 % (20-40); MONOCYTE 7 % (0-10); NEUTROPHIL 74 % (50-75); REACTIVE LYMPHOCYTES 1 % (0-0); TOTAL CELLS COUNTED 100
[2017-11-22 02:39] LABS: PLATELET ESTIMATE NORMAL (NORMAL)
[2017-11-22] MEDS: Sodium Chloride 0.9% 1,000 ML IV SCH ×2 (05:58→17:18)
[2017-11-22] MEDS ORDERED: Pneumococcal 23-Valent Vaccine IM ONE (06:45)
[2017-11-22] MEDS ORDERED: Influenza Vaccine 60 mcg/0.5 mL SYR (4YR UP) IM ONE (07:06)
--- NOTE | 2017-11-22 08:31 | RAD ---
HISTORY: Sepsis Patient COMPARISON: Plain radiographs performed earlier the same day FINDINGS: The right IJV line terminates in the right atrium. LUNGS: The lungs are well inflated. None no focal consolidation. PLEURA: No significant pleural effusion identified, no pneumothorax apparent. CARDIOVASCULAR: There is persistent severe cardiomegaly. OSSEOUS STRUCTURES: No significant abnormalities. VISUALIZED UPPER ABDOMEN: Normal. OTHER FINDINGS: None. IMPRESSION: Right IJV line terminates in the right atrium. Persistent severe cardiomegaly.
--- NOTE | 2017-11-22 09:00 | RAD ---
HISTORY: Sepsis Patient COMPARISON: 07/17/2017. FINDINGS: LUNGS: The lungs are well inflated and clear. PLEURA: No significant pleural effusion identified, no pneumothorax apparent. CARDIOVASCULAR: There is moderate cardiomegaly. OSSEOUS STRUCTURES: No significant abnormalities. VISUALIZED UPPER ABDOMEN: Normal. OTHER FINDINGS: None. IMPRESSION: No active pulmonary disease. Moderate cardiomegaly.
[2017-11-22] MEDS ORDERED: ZINC OXIDE TP SCH (10:00)
[2017-11-22] MEDS: Saccharomyces Boulardi 250 mg Cap PO SCH ×2 (10:33→17:15)
[2017-11-22] MEDS: Multiple Vitamins Tab PO SCH (10:34)
[2017-11-22] MEDS: Metoprolol Succinate 50 mg XL Tab PO SCH (10:34)
[2017-11-22] MEDS: Zinc Oxide Topical 30 gm Tube TOP SCH (10:34)
--- NOTE | 2017-11-22 11:06 | CP.PCM.PN ---
Subjective - Date & Time of Evaluation Date of Evaluation: 11/22/17 Time of Evaluation: 11:04 - Subjective Subjective: Medicine progress note for Dr. Lyndsay Bowen Patient seen and examined at bedside. Patient perseverates with the following phrase "Oh Lord, don't let my running be in vain." Could not obtain ROS due to advanced dementia. Objective - Vital Signs/Intake and Output Vital Signs (last 24 hours): Temp Pulse Resp BP Pulse Ox 97.1 F L 85 18 147/76 97 11/22/17 07:20 11/22/17 07:20 11/22/17 07:20 11/22/17 07:20 11/22/17 07:20 Intake and Output: 11/22/17 11/22/17 06:59 18:59 Intake Total 600 Output Total 200 Balance 400 - Medications Medications: Current Medications Aspirin (Aspirin Chewable) 81 mg PO DAILY [facility] Last Admin: 11/22/17 10:34 Dose: 81 mg Ciprofloxacin (Cipro 400mg/200ml Dsw) 400 mg in 200 mls @ 133.333 mls/hr IVPB Q24H [facility] PRN Reason: Protocol Last Admin: 11/21/17 19:00 Dose: 133.333 mls/hr Sodium Chloride (Sodium Chloride 0.9%) 1,000 mls @ 100 mls/hr IV .Q10H [facility] Last Admin: 11/22/17 05:58 Dose: Not Given Doxycycline Hyclate 100 mg/ (Sodium Chloride) 100 mls @ 100 mls/hr IVPB Q12H [facility] PRN Reason: Protocol Last Admin: 11/22/17 01:46 Dose: 100 mls/hr Ceftriaxone Sodium 1 gm/ (Sodium Chloride) 100 mls @ 100 mls/hr IVPB DAILY [facility] PRN Reason: Protocol Last Admin: 11/22/17 10:33 Dose: 100 mls/hr Isosorbide Mononitrate (Imdur) 60 mg PO DAILY [facility] Last Admin: 11/22/17 10:33 Dose: 60 mg Metoprolol Succinate (Toprol Xl) 50 mg PO DAILY [facility] Last Admin: 11/22/17 10:34 Dose: 50 mg Multivitamins (Hexavitamin) 1 tab PO DAILY [facility] Last Admin: 11/22/17 10:34 Dose: 1 tab Petrolatum (Desitin Original) 0 gm TOP DAILY [facility] Last Admin: 11/22/17 10:34 Dose: 1 applic Rivaroxaban (Xarelto) 20 mg PO DAILY [facility] Last Admin: 11/22/17 10:34 Dose: 20 mg Saccharomyces Boulardii (Florastor) 250 mg PO BID [facility] Last Admin: 11/22/17 10:33 Dose: 250 mg Sitagliptin Phosphate (Januvia) 50 mg PO DAILY [facility] Last Admin: 11/22/17 10:34 Dose: 50 mg - Labs Labs: 11/22/17 00:41 11/22/17 00:41 PT 22.2 SECONDS (9.7-12.2) H 11/21/17 16:47 INR 1.9 11/21/17 16:47 APTT 40 SECONDS (21-34) H 11/21/17 16:47 - Constitutional Appears: Confused (dementia at baseline), Chronically Ill - Head Exam Head Exam: ATRAUMATIC, NORMOCEPHALIC - Eye Exam Eye Exam: EOMI, Normal appearance - ENT Exam ENT Exam: Mucous Membranes Moist - Neck Exam Additional comments: TLC right IJ - Respiratory Exam Respiratory Exam: absent: Rales, Rhonchi, Wheezes Additional comments: Coarse breath sounds bilaterally - Cardiovascular Exam Cardiovascular Exam: REGULAR RHYTHM, +S1, +S2 - GI/Abdominal Exam GI & Abdominal Exam: Soft, Normal Bowel Sounds. absent: Distended, Guarding, Tenderness
[2017-11-22 11:11] LABS: BASO % 0.6 % (0.0-2.0); HEMOGLOBIN 8.1 g/dL (11.0-16.0); LYMPH # 0.3 K/uL (1.0-4.3); LYMPH % 6.3 % (20.0-40.0); MEAN CELL VOLUME 75.4 fL (81.0-99.0); MEAN CORPUSCULAR HEMOGLOBIN 23.4 pg (27.0-31.0); MEAN CORPUSCULAR HGB CONC 31.1 g/dL (33.0-37.0); MEAN PLATELET VOLUME 8.9 fL (7.2-11.7); MONO # 0.7 K/uL (0.0-0.8); MONO % 14.8 % (0.0-10.0); NEUT # 3.5 K/uL (1.8-7.0); NEUT % 78.3 % (50.0-75.0); PLATELET COUNT 151 K/uL (130-400); RBC 3.48 Mil/uL (3.80-5.20); RED CELL DISTRIBUTION WIDTH 20.2 % (11.5-14.5); WHITE BLOOD COUNT 4.5 K/uL (4.8-10.8)
[2017-11-22 11:23] LABS: ALB/GLOB RATIO 0.8 (1.0-2.1); ALBUMIN 3.3 g/dL (3.5-5.0); CALCIUM 8.9 mg/dl (8.6-10.4)
--- NOTE | 2017-11-22 11:39 | CP.PCM.PCO ---
Physician Communication Note - Physician Communication Note Physician Communication Note: This is Dr. Esperanza Baer's patient. Care Transferred to his service.He is aware
[2017-11-22 11:56] LABS: ANISOCYTOSIS MODERATE; LYMPHOCYTE 6 % (20-40); MONOCYTE 14 % (0-10); NEUTROPHIL 80 % (50-75); PLATELET ESTIMATE NORMAL (NORMAL); TOTAL CELLS COUNTED 100
[2017-11-22 11:57] LABS: BURR CELLS SLIGHT; HYPOCHROMIC MODERATE; OVALOCYTES SLIGHT; POIKILOCYTOSIS SLIGHT; POLYCHROMIC SLIGHT
[2017-11-22 11:58] LABS: LARGE PLATELETS PRESENT; SCHISTOCYTES SLIGHT
[2017-11-22] MEDS: Oxycodone/Acetaminophen 5/325 mg Tab PO PRN (12:37)
[2017-11-22] MEDS: Ciprofloxacin 400mg/200ml D5W 400 MG/200 ML BAG IVPB SCH (17:15)
[2017-11-23] MEDS: Sodium Chloride 0.9% 1,000 ML IV SCH (02:30)
[2017-11-23 07:31] LABS: HEMOGLOBIN 8.5 g/dL (11.0-16.0); MEAN CELL VOLUME 76.4 fL (81.0-99.0); MEAN CORPUSCULAR HEMOGLOBIN 23.1 pg (27.0-31.0); MEAN CORPUSCULAR HGB CONC 30.3 g/dL (33.0-37.0); MEAN PLATELET VOLUME 9.4 fL (7.2-11.7); RBC 3.7 Mil/uL (3.80-5.20); RED CELL DISTRIBUTION WIDTH 19.5 % (11.5-14.5); WHITE BLOOD COUNT 3.6 K/uL (4.8-10.8)
[2017-11-23 08:09] LABS: ALB/GLOB RATIO 0.8 (1.0-2.1); ALBUMIN 3.3 g/dL (3.5-5.0); CALCIUM 8.6 mg/dl (8.6-10.4)
[2017-11-23] MEDS: Saccharomyces Boulardi 250 mg Cap PO SCH ×2 (09:55→18:09)
[2017-11-23] MEDS: Multiple Vitamins Tab PO SCH (09:56)
[2017-11-23] MEDS: Metoprolol Succinate 50 mg XL Tab PO SCH (09:56)
[2017-11-23 11:06] LABS: EOS # 0.1 K/uL (0.0-0.7); LYMPH # 0.8 K/uL (1.0-4.3); MONO # 0.4 K/uL (0.0-0.8); NEUT # 2.3 K/uL (1.8-7.0)
[2017-11-23] MEDS: Zinc Oxide Topical 30 gm Tube TOP SCH (11:50)
[2017-11-23 15:14] LABS: SQUAMOUS EPITHIAL 2 /hpf (0-5); URINE BACTERIA OCC (<OCC); URINE BILIRUBIN NEGATIVE (NEGATIVE); URINE BLOOD 1+ (NEGATIVE); URINE CLARITY Hazy (Clear); URINE COLOR Yellow (YELLOW); URINE GLUCOSE (UA) NORMAL (Normal); URINE LEUKOCYTE ESTERASE 3+ Leu/uL (Negative); URINE PROTEIN 2+ mg/dL (NEGATIVE); URINE UROBILINOGEN NORMAL mg/dL (0.2-1.0)
[2017-11-23] MEDS ORDERED: Sod Polystyrene Sulf 15 gm/60 ml Susp PO ONE (17:32)
[2017-11-23] MEDS: Ciprofloxacin 400mg/200ml D5W 400 MG/200 ML BAG IVPB SCH (18:08)
[2017-11-24] MEDS: Oxycodone/Acetaminophen 5/325 mg Tab PO PRN (01:50)
[2017-11-24 06:26] LABS: HEMOGLOBIN 7.9 g/dL (11.0-16.0); MEAN CELL VOLUME 75.4 fL (81.0-99.0); MEAN CORPUSCULAR HEMOGLOBIN 23.1 pg (27.0-31.0); MEAN CORPUSCULAR HGB CONC 30.7 g/dL (33.0-37.0); RBC 3.42 Mil/uL (3.80-5.20)
[2017-11-24 06:42] LABS: ALB/GLOB RATIO 0.7 (1.0-2.1); ALBUMIN 3.1 g/dL (3.5-5.0); CALCIUM 8.6 mg/dl (8.6-10.4)
[2017-11-24 08:43] LABS: LYMPH # 0.4 K/uL (1.0-4.3); MEAN PLATELET VOLUME 9.3 fL (7.2-11.7); MONO # 0.3 K/uL (0.0-0.8); NEUT # 3.3 K/uL (1.8-7.0)
[2017-11-24] MEDS: Saccharomyces Boulardi 250 mg Cap PO SCH ×2 (09:36→17:46)
[2017-11-24] MEDS: Metoprolol Succinate 50 mg XL Tab PO SCH (09:36)
[2017-11-24] MEDS: Zinc Oxide Topical 30 gm Tube TOP SCH (09:36)
[2017-11-24] MEDS: Multiple Vitamins Tab PO SCH (09:36)
--- NOTE | 2017-11-24 11:12 | CP.PCM.PN ---
Subjective - Date & Time of Evaluation Date of Evaluation: 11/24/17 Time of Evaluation: 09:00 - Subjective Subjective: PGY-[address] Baer Patient seen and examined at bedside. Patient has been confused and verbally belligerent since the hospital admission. She would like to be left alone and refuse to speak to me. Unable to obtain detailed ROS. Objective - Vital Signs/Intake and Output Vital Signs (last 24 hours): Temp Pulse Resp BP Pulse Ox 97.2 F L 79 18 125/76 99 11/24/17 07:20 11/24/17 08:26 11/24/17 07:20 11/24/17 09:36 11/24/17 07:20 Intake and Output: 11/24/17 11/24/17 06:59 18:59 Intake Total 568 Output Total 400 Balance 168 - Medications Medications: Current Medications Aspirin (Aspirin Chewable) 81 mg PO DAILY [facility] Last Admin: 11/24/17 09:36 Dose: 81 mg Furosemide (Lasix) 20 mg IVP DAILY [facility] Last Admin: 11/24/17 09:36 Dose: 20 mg Ciprofloxacin (Cipro 400mg/200ml Dsw) 400 mg in 200 mls @ 133.333 mls/hr IVPB Q24H [facility] PRN Reason: Protocol Last Admin: 11/23/17 18:08 Dose: 133.333 mls/hr Doxycycline Hyclate 100 mg/ (Sodium Chloride) 100 mls @ 100 mls/hr IVPB Q12H [facility] PRN Reason: Protocol Last Admin: 11/23/17 23:49 Dose: 100 mls/hr Ceftriaxone Sodium 1 gm/ (Sodium Chloride) 100 mls @ 100 mls/hr IVPB DAILY [facility] PRN Reason: Protocol Last Admin: 11/24/17 09:35 Dose: 100 mls/hr Isosorbide Mononitrate (Imdur) 60 mg PO DAILY [facility] Last Admin: 11/24/17 09:36 Dose: 60 mg Metoprolol Succinate (Toprol Xl) 50 mg PO DAILY [facility] Last Admin: 11/24/17 09:36 Dose: 50 mg Multivitamins (Hexavitamin) 1 tab PO DAILY [facility] Last Admin: 11/24/17 09:36 Dose: 1 tab Oxycodone/Acetaminophen (Percocet 5/325 Mg Tab) 1 tab PO Q4H PRN PRN Reason: Pain, moderate (4-7) Stop: 11/25/17 11:44 Last Admin: 11/24/17 01:50 Dose: 1 tab Petrolatum (Desitin Original) 0 gm TOP DAILY [facility] Last Admin: 11/23/17 11:50 Dose: 1 applic Rivaroxaban (Xarelto) 20 mg PO DAILY [facility] Last Admin: 11/24/17 09:36 Dose: 20 mg Saccharomyces Boulardii (Florastor) 250 mg PO BID [facility] Last Admin: 11/24/17 09:36 Dose: 250 mg Sitagliptin Phosphate (Januvia) 50 mg PO DAILY [facility] Last Admin: 11/24/17 09:36 Dose: 50 mg - Labs Labs: 11/24/17 06:16 11/24/17 06:16 PT 22.2 SECONDS (9.7-12.2) H 11/21/17 16:47 INR 1.9 11/21/17 16:47 APTT 40 SECONDS (21-34) H 11/21/17 16:47 - Additional Findings Additional findings: - Constitutional Appears: Non-toxic, No Acute Distress - Head Exam Head Exam: ATRAUMATIC, NORMAL INSPECTION, NORMOCEPHALIC - Eye Exam Eye Exam: EOMI, Normal appearance Pupil Exam: NORMAL ACCOMODATION, PERRL - ENT Exam ENT Exam: Mucous Membranes Dry, Normal Exam - Neck Exam Neck exam: right IJ central line in place - Respiratory Exam Respiratory Exam: Clear to Auscultation Bilateral, NORMAL BREATHING PATTERN. absent: Accessory Muscle Use - Cardiovascular Exam Cardiovascular Exam: REGULAR RHYTHM, +S1, +S2. absent: Bradycardia, Tachycardia - GI/Abdominal Exam GI & Abdominal Exam: Normal Bowel Sounds. absent: Firm, Guarding - Extremities Exam Extremities exam: Positive for: pedal edema - Neurological Exam Neurological exam: CN II-XII Intact, Reflexes Normal - Psychiatric Exam Psychiatric exam: Normal Affect, Normal Mood - Skin Skin Exam: Warm Assessment and Plan - Assessment and Plan (Free Text) Assessment: UTI UA showed positive LE, WBC Follow up urine culture Blood culture no growth after 48 hours Afebrile, no leukocytosis ID consult Dr. Grimaldo, help appreciated Ciprofloxacin 400mg IVP Q24H Doxycycline 100mg IVPB Q12H Rocephin 1gm IVPB daily PMHx of Afib Xarelto 20mg POQD ASA 81mg PO QD CHF Lasix 20mg IV prior echo 07/2017, EF: 40-45% moderate diastolic dysfunction. Elevated left atrial pressure. Grade III restrictive diastolic dysfunction. RV systolic function is moderately reduced. Moderate tricupsid regurgitation. Trace pericardial effusion. HTN metoprolol 50mg PO QD Imdur 60mg po daily DM Januvia 50mg POQD accucheck Q6h ISS Prophylactic measures Pepcid Xarelto Florastor Case discussed with Dr. Baer All management per Dr. Baer
--- NOTE | 2017-11-24 12:42 | CP.PCM.CON ---
History of Present Illness - History of Present Illness History of Present Illness: 87 yo female, with PMHx of Afib, HTN, COPD, T2DM, hyperlipidemia, CHF, PVD, depression, and chronic non-healing ulcers and diabetic foot ulcers to bilateral lower extremities, who presents to [facility] from [facility] for evaluation of elevated blood pressure and lethargy. Patient has no complaints at this time. Patient has a history of Alzheimer's disease and is a poor historian. In Emergency room, patient was found to have an elevated potassium level, dehydrated, and was given fluids and warming blanket. Patient was also given a TLC PMHx: Afib, HTN, COPD, T2DM, hyperlipidemia, CHF, PVD, chronic diabetic ulcers to bilateral lower extremities (right anterior arango having small nonhealing ulcers and dry surrounding skin without erythema, right anterior foot having 1.5x1.5" nonhealing ulcer, left foot having nonhealing ulcers and left arango having a large irregularly demarcated nonhealing ulcer) PSHx: 2 c-sections FHx: denies allergies: Ertapenem sodium (rash) Social History: Lives in a long-term, denies tobacco, ETOH and illicit drug use. 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 Review of Systems - Review of Systems Systems not reviewed;Unavailable: Altered Mental Status - Constitutional Constitutional: As Per HPI - EENT Eyes: absent: As Per HPI, Blind Spots, Blurred Vision, Change in Vision, Decreased Night Vision, Diplopia, Discharge, Dry Eye, Exophthalmos, Floaters, Irritation, Itchy Eyes, Loss of Peripheral Vision, Pain, Photophobia, Requires Corrective Lenses, Sees Flashes, Spots in Vision, Tunnel Vision, Other Visual Disturbances, Loss of Vision, Other Ears: absent: As Per HPI, Decreased Hearing, Ear Discharge, Ear Pain, Tinnitus, Abnormal Hearing, Disequilibrium, Dizziness, Other Nose/Mouth/Throat: absent: As Per HPI, Epistaxis, Nasal Congestion, Nasal Discharge, Nasal Obstruction, Nasal Trauma, Nose Pain, Post Nasal Drip, Sinus Pain, Sinus Pressure, Bleeding Gums, Change in Voice, Dental Pain, Dry Mouth, Dysphagia, Halitosis, Hoarsness, Lip Swelling, Mouth Lesions, Mouth Pain, Odynophagia, Sore Throat, Throat Swelling, Tongue Swelling, Facial Pain, Neck Pain, Neck Mass, Other - Breasts Breasts: absent: As Per HPI, Change in Shape, Mass, Pain, Nipple Discharge, Nipple Inversion, Skin Changes, Swelling, Other - Cardiovascular Cardiovascular: absent: As Per HPI, Acrocyanosis, Chest Pain, Chest Pain at Rest , Chest Pain with Activity, Claudication, Diaphoresis, Dyspnea, Dyspnea on Exertion, Edema, Irregular Heart Rhythm, Pain Radiating to Arm/Neck/Jaw, Leg Edema, Leg Ulcers, Lightheadedness, Orthopnea, Palpitations, Paroxysmal Nocturnal Dyspnea, Pedal Edema, Radiating Pain, Rapid Heart Rate, Slow Heart Rate, Syncope, Other - Respiratory Respiratory: As Per HPI - Gastrointestinal Gastrointestinal: absent: As Per HPI, Abdominal Pain, Belching, Bloating, Change in Bowel Habits, Change in Stool Character, Coffee Ground Emesis, Constipation, Cramping, Diarrhea, Dyspepsia, Dysphagia, Early Satiety, Excessive Flatus, Fecal Incontinence, Heartburn, Hematemesis, Hematochezia, Loose Stools, Melena, Nausea, Odynophagia, Temesmus, Vomiting, Other - Genitourinary Genitourinary: absent: As Per HPI, Change in Urinary Stream, Difficulty Urinating, Dysuria, Flank Pain, Hematuria, Pyuria, Nocturia, Urinary Incontinence, Urinary Frequency, Urinary Hesitance, Urinary Urgency, Voiding Freq/Small Amts, Freq UTI, Hx Renal/Bladder Calculi, Hx /Renal Surgery, Bladder Distension, Other - Reproductive: Female Reproductive:Female: absent: As Per HPI, Amenorrhea, Amenorrhea/ Control, Currently Menstual, Cycle <21 Days, Cycle >35 Days, Cycle Variable, Menses 1-7 Days, Menses >/= 8 Days, Menses Variable, Cycle > 4 Weeks Between, No Menses for 6 Months, Heavy Menses, Light Menses, Normal Menses, Spotting Between Cycles , S/P Hysterectomy, Menopausal, Post Menopausal, Premenarche, Abnormal Vaginal Bleeding, Dysmenorrhea, Dyspareunia, Genital Lesions, Genital Pruritis, Pelvic Pain, Prolapse Symptoms, Sexual Dysfunction, Vaginal Discharge, Vaginal Dryness , Vaginal Odor, Vaginal Pruritis, Other - Menstruation Menstruation: absent: As Per HPI, Amenorrhea, Amenorrhea/ Control, Currently Menstual, Cycle <21 Days, Cycle >35 Days, Cycle Variable, Menses 1-7 Days, Menses >/= 8 Days, Menses Variable, Cycle > 4 Weeks Between, No Menses for 6 Months, Heavy Menses, Light Menses, Normal Menses, Spotting Between Cycles , S/P Hysterectomy, Menopausal, Post Menopausal, Premenarche, Abnormal Vaginal Bleeding, Dysmenorrhea, Other - Musculoskeletal Musculoskeletal: As Per HPI - Integumentary Integumentary: As Per HPI - Neurological Neurological: As Per HPI - Psychiatric Psychiatric: absent: As Per HPI, Abnormal Sleep Pattern, Anhedonia, Anxiety, Auditory Hallucinations, Behavioral Changes, Change in Appetite, Change in Libido, Confusion, Depression, Difficulty Concentrating, Hallucinations, Homicidal Ideation, Hopelessness, Irritability, Memory Loss, Mood Swings, Panic Attacks, Paranoia, Suicidal Ideation, Visual Hallucinations, Tactile Hallucinations, Other - Endocrine Endocrine: absent: As Per HPI, Change in Body Appearance, Change in Libido, Cold Intolorance, Deepening of Voice, Excessive Sweating, Fatigue, Flushing, Heat Intolorance, Increase in Ring/Shoe/Hat Size, Palpitations, Polydipsia, Polyphagia, Polyuria, Other - Hematologic/Lymphatic Hematologic: absent: As Per HPI, Easy Bleeding, Easy Bruising, Lymphadenopathy, Other Past Patient History - Infectious Disease Hx of Infectious Diseases: None - Tetanus Immunizations Tetanus Immunization: Unknown - Past Medical History & Family History Past Medical History?: Yes - Past Social History Smoking Status: unknown - CARDIAC Hx Cardiac Disorders: Yes Hx Atrial Fibrillation: Yes Hx Congestive Heart Failure: Yes Hx Hypercholesterolemia: Yes Hx Hypertension: Yes Hx Peripheral Edema: Yes - PULMONARY Hx Respiratory Disorders: Yes Hx Chronic Obstructive Pulmonary Disease (COPD): Yes - NEUROLOGICAL Hx Neurological Disorder: Yes Hx Alzheimer's Disease: Yes Hx Dementia: Yes - HEENT Hx HEENT Problems: No - RENAL Hx Chronic Kidney Disease: No - ENDOCRINE/METABOLIC Hx Endocrine Disorders: Yes Hx Diabetes Mellitus Type 2: Yes - HEMATOLOGICAL/ONCOLOGICAL Hx Blood Disorders: No Hx Blood Transfusions: No Hx Blood Transfusion Reaction: No - INTEGUMENTARY Hx Dermatological Problems: Yes Other/Comment: Hx Diabetic foot ulcer and non healing wound - MUSCULOSKELETAL/RHEUMATOLOGICAL Hx Musculoskeletal Disorders: Yes Hx Falls: Yes - GASTROINTESTINAL Hx Gastrointestinal Disorders: No - GENITOURINARY/GYNECOLOGICAL Hx Genitourinary Disorders: Yes Hx Urinary Tract Infection: Yes - PSYCHIATRIC Hx Anxiety: Yes Hx Depression: Yes Hx Substance Use: No (unknown) - SURGICAL HISTORY Hx Surgeries: Yes Hx Section: Yes (x2) - ANESTHESIA Hx Anesthesia: Yes Hx Anesthesia Reactions: No Hx Malignant Hyperthermia: No Meds Allergies/Adverse Reactions: Allergies Allergy/AdvReac Type Severity Reaction Status Date / Time ertapenem sodium Allergy Verified 11/21/17 16:07 [From [facility]] - Medications Medications: Current Medications Aspirin (Aspirin Chewable) 81 mg PO DAILY [facility] Last Admin: 11/24/17 09:36 Dose: 81 mg Famotidine (Pepcid) 20 mg PO DAILY [facility] Furosemide (Lasix) 20 mg IVP DAILY [facility] Last Admin: 11/24/17 09:36 Dose: 20 mg Ciprofloxacin (Cipro 400mg/200ml Dsw) 400 mg in 200 mls @ 133.333 mls/hr IVPB Q24H [facility] PRN Reason: Protocol Last Admin: 11/23/17 18:08 Dose: 133.333 mls/hr Doxycycline Hyclate 100 mg/ (Sodium Chloride) 100 mls @ 100 mls/hr IVPB Q12H [facility] PRN Reason: Protocol Last Admin: 11/24/17 11:39 Dose: 100 mls/hr Ceftriaxone Sodium 1 gm/ (Sodium Chloride) 100 mls @ 100 mls/hr IVPB DAILY [facility] PRN Reason: Protocol Last Admin: 11/24/17 09:35 Dose: 100 mls/hr Insulin Human Regular (Novolin R) 0 unit SC ACHS [facility] PRN Reason: Protocol Isosorbide Mononitrate (Imdur) 60 mg PO DAILY [facility] Last Admin: 11/24/17 09:36 Dose: 60 mg Metoprolol Succinate (Toprol Xl) 50 mg PO DAILY [facility] Last Admin: 11/24/17 09:36 Dose: 50 mg Multivitamins (Hexavitamin) 1 tab PO DAILY [facility] Last Admin: 11/24/17 09:36 Dose: 1 tab Oxycodone/Acetaminophen (Percocet 5/325 Mg Tab) 1 tab PO Q4H PRN PRN Reason: Pain, moderate (4-7) Stop: 11/25/17 11:44 Last Admin: 11/24/17 01:50 Dose: 1 tab Petrolatum (Desitin Original) 0 gm TOP DAILY [facility] Last Admin: 11/24/17 09:36 Dose: 1 applic Rivaroxaban (Xarelto) 20 mg PO DAILY [facility] Last Admin: 11/24/17 09:36 Dose: 20 mg Saccharomyces Boulardii (Florastor) 250 mg PO BID [facility] Last Admin: 11/24/17 09:36 Dose: 250 mg Sitagliptin Phosphate (Januvia) 50 mg PO DAILY [facility] Last Admin: 11/24/17 09:36 Dose: 50 mg Physical Exam - Constitutional Appears: Non-toxic, Confused, Chronically Ill - Head Exam Head Exam: NORMOCEPHALIC - Eye Exam Eye Exam: PERRL. absent: Scleral icterus - ENT Exam ENT Exam: Mucous Membranes Dry, Normal External Ear Exam, Normal Oropharynx - Neck Exam Neck exam: Negative for: Lymphadenopathy - Respiratory Exam Respiratory Exam: Decreased Breath Sounds, Rhonchi - Cardiovascular Exam Cardiovascular Exam: REGULAR RHYTHM, +S1, +S2 - GI/Abdominal Exam GI & Abdominal Exam: Diminished Bowel Sounds, Soft. absent: Tenderness - Rectal Exam Rectal Exam: Deferred - Exam Exam: NORMAL INSPECTION - Extremities Exam Extremities exam: Positive for: pedal edema. Negative for: calf tenderness, tenderness, pedal pulses present - Back Exam Back exam: absent: CVA tenderness (L), CVA tenderness (R), paraspinal tenderness - Neurological Exam Neurological exam: Altered - Psychiatric Exam Psychiatric exam: Depressed - Skin Skin Exam: Dry, Intact Results - Vital Signs Recent Vital Signs: Last Vital Signs Temp 97.2 F L 11/24/17 07:20 Pulse 79 11/24/17 08:26 Resp 18 11/24/17 07:20 BP 125/76 11/24/17 09:36 Pulse Ox 99 11/24/17 07:20 - Labs Result Diagrams: 11/24/17 06:16 11/24/17 06:16 Labs: Laboratory Results - last 24 hr 11/23/17 11/23/17 11/23/17 07:45 16:18 21:08 WBC RBC Hgb Hct MCV MCH MCHC RDW Plt Count MPV Neut % (Auto) Lymph % (Auto) [place] % (Auto) Eos % (Auto) Baso % (Auto) Neut # (Auto) Lymph # (Auto) [place] # (Auto) Eos # (Auto) Baso # (Auto) Sodium Potassium Chloride Carbon Dioxide Anion Gap BUN Creatinine Est GFR ( Amer) Est GFR (Non-Af Amer) POC Glucose (mg/dL) 101 170 H Random Glucose Calcium Phosphorus Magnesium Total Bilirubin AST ALT Alkaline Phosphatase Total Protein Albumin Globulin Albumin/Globulin Ratio Urine Color Yellow Urine Clarity Hazy Urine pH 5.0 Ur Specific [place] 1.018 Urine Protein 2+ H Urine Glucose (UA) Normal Urine Ketones Negative Urine Blood 1+ H Urine Nitrate Negative Urine Bilirubin Negative Urine Urobilinogen Normal Ur Leukocyte Esterase 3+ H Urine WBC (Auto) 49 H Urine RBC (Auto) 159 H Ur Squamous Epith Cells 2 Urine Bacteria Occ H Hyaline Casts 3-5 H 11/24/17 11/24/17 11/24/17 06:07 06:16 06:16 WBC 4.0 L RBC 3.42 L Hgb 7.9 L Hct 25.8 L MCV 75.4 L MCH 23.1 L MCHC 30.7 L RDW 20.0 H Plt Count 142 MPV 9.3 Neut % (Auto) 81.0 H Lymph % (Auto) 10.[address] [place] % (Auto) 9.0 Eos % (Auto) 0.0 Baso % (Auto) 0.0 Neut # (Auto) 3.3 Lymph # (Auto) 0.[address] [place] # (Auto) 0.3 Eos # (Auto) 0.0 Baso # (Auto) 0.0 Sodium 149 H Potassium 4.2 Chloride 114 H Carbon Dioxide 20 L Anion Gap 19 BUN 48 H Creatinine 1.6 H Est GFR ( Amer) 37 Est GFR (Non-Af Amer) 31 POC Glucose (mg/dL) 143 H Random Glucose 130 H Calcium 8.6 Phosphorus 4.3 Magnesium 1.9 Total Bilirubin 0.5 AST 33 ALT 35 Alkaline Phosphatase 126 Total Protein 7.3 Albumin 3.1 L Globulin 4.2 H Albumin/Globulin Ratio 0.7 L Urine Color Urine Clarity Urine pH Ur Specific [place] Urine Protein Urine Glucose (UA) Urine Ketones Urine Blood Urine Nitrate Urine Bilirubin Urine Urobilinogen Ur Leukocyte Esterase Urine WBC (Auto) Urine RBC (Auto) Ur Squamous Epith Cells Urine Bacteria Hyaline Casts 11/24/17 11:16 WBC RBC Hgb Hct MCV MCH MCHC RDW Plt Count MPV Neut % (Auto) Lymph % (Auto) [place] % (Auto) Eos % (Auto) Baso % (Auto) Neut # (Auto) Lymph # (Auto) [place] # (Auto) Eos # (Auto) Baso # (Auto) Sodium Potassium Chloride Carbon Dioxide Anion Gap BUN Creatinine Est GFR ( Amer) Est GFR (Non-Af Amer) POC Glucose (mg/dL) 159 H Random Glucose Calcium Phosphorus Magnesium Total Bilirubin AST ALT Alkaline Phosphatase Total Protein Albumin Globulin Albumin/Globulin Ratio Urine Color Urine Clarity Urine pH Ur Specific [place] Urine Protein Urine Glucose (UA) Urine Ketones Urine Blood Urine Nitrate Urine Bilirubin Urine Urobilinogen Ur Leukocyte Esterase Urine WBC (Auto) Urine RBC (Auto) Ur Squamous Epith Cells Urine Bacteria Hyaline Casts Assessment & Plan (1) Hypothermia Status: Acute (2) Pneumonia Status: Acute (3) Sepsis Status: Acute (4) Diabetes mellitus type 2 Status: Active (5) Ulcer of foot Status: Active - Assessment and Plan (Free Text) Assessment: cont iv rx and wound care podiatry eval poor prognosis
[2017-11-24] MEDS: Cefepime IV 1 gm in Dextrose 1 GM/50 ML BAG IVPB SCH (14:08)
[2017-11-24] MEDS: Vancomycin 1 gm/NS 200 ml 1 GM/200 ML BAG IVPB SCH (14:40)
[2017-11-24] MEDS: (Novolin R) Insulin Human Regular 100 units/ml vial SC SCH ×2 (17:45→21:42)
[2017-11-25] MEDS: Cefepime IV 1 gm in Dextrose 1 GM/50 ML BAG IVPB SCH ×2 (01:55→12:32)
--- NOTE | 2017-11-25 06:26 | HP ---
HISTORY OF PRESENT ILLNESS: The patient is an 87-year-old female with history of dementia with chief complaint of weakness, fatigue, tiredness, shortness of breath, swelling in the lower extremity. The patient came with pneumonia and cellulitis of the lower extremity. Advised admission. PHYSICAL EXAMINATION: GENERAL: The patient is awake and confused. VITAL SIGNS: Temperature 98, pulse 90. HEENT: Within normal limits. NECK: Supple. CHEST: Symmetrical. HEART: Regular. ABDOMEN: Soft. EXTREMITIES: 2+ edema. IMPRESSION: The patient suffers pneumonia. PLAN: The patient was placed on antibiotics. Duy Baer MD
[2017-11-25] MEDS: (Novolin R) Insulin Human Regular 100 units/ml vial SC SCH ×4 (07:30→21:17)
[2017-11-25 07:38] LABS: ALB/GLOB RATIO 0.8 (1.0-2.1); ALBUMIN 3.2 g/dL (3.5-5.0); CALCIUM 8.7 mg/dl (8.6-10.4)
--- NOTE | 2017-11-25 09:47 | CP.PCM.PN ---
Subjective - Date & Time of Evaluation Date of Evaluation: 11/25/17 Time of Evaluation: 09:47 - Subjective Subjective: Medicine progress note for Dr. Baer's service Patient seen and examined. Patient eating breakfast with help of managed care director. Patient states she feels well and denies fever or chills. Objective - Vital Signs/Intake and Output Vital Signs (last 24 hours): Temp Pulse Resp BP Pulse Ox 97.2 F L 80 20 150/89 98 11/25/17 07:15 11/25/17 07:15 11/25/17 07:15 11/25/17 07:15 11/25/17 07:15 Intake and Output: 11/25/17 11/25/17 06:59 18:59 Intake Total 250 Output Total 700 Balance -450 - Medications Medications: Current Medications Aspirin (Aspirin Chewable) 81 mg PO DAILY [facility] Last Admin: 11/24/17 09:36 Dose: 81 mg Famotidine (Pepcid) 20 mg PO DAILY [facility] Furosemide (Lasix) 20 mg IVP DAILY [facility] Last Admin: 11/24/17 09:36 Dose: 20 mg Cefepime HCl (Maxipime Iv 1 Gm Premix) 1 gm in 50 mls @ 100 mls/hr IVPB Q12H [facility] PRN Reason: Protocol Last Admin: 11/25/17 01:55 Dose: 100 mls/hr Vancomycin/Sodium Chloride (Vancomycin 1 Gm/Ns 200 Ml) 1 gm in 200 mls @ 133.333 mls/hr IVPB Q48H [facility] PRN Reason: Protocol Stop: 11/29/17 14:31 Last Admin: 11/24/17 14:40 Dose: 133.333 mls/hr Insulin Human Regular (Novolin R) 0 unit SC ACHS [facility] PRN Reason: Protocol Last Admin: 11/25/17 07:30 Dose: Not Given Isosorbide Mononitrate (Imdur) 60 mg PO DAILY [facility] Last Admin: 11/24/17 09:36 Dose: 60 mg Metoprolol Succinate (Toprol Xl) 50 mg PO DAILY [facility] Last Admin: 11/24/17 09:36 Dose: 50 mg Multivitamins (Hexavitamin) 1 tab PO DAILY [facility] Last Admin: 11/24/17 09:36 Dose: 1 tab Oxycodone/Acetaminophen (Percocet 5/325 Mg Tab) 1 tab PO Q4H PRN PRN Reason: Pain, moderate (4-7) Stop: 11/25/17 11:44 Last Admin: 11/24/17 01:50 Dose: 1 tab Petrolatum (Desitin Original) 0 gm TOP DAILY [facility] Last Admin: 11/24/17 09:36 Dose: 1 applic Rivaroxaban (Xarelto) 20 mg PO DAILY [facility] Last Admin: 11/24/17 09:36 Dose: 20 mg Saccharomyces Boulardii (Florastor) 250 mg PO BID [facility] Last Admin: 11/24/17 17:46 Dose: 250 mg Sitagliptin Phosphate (Januvia) 50 mg PO DAILY [facility] Last Admin: 11/24/17 09:36 Dose: 50 mg - Labs Labs: 11/24/17 06:16 11/25/17 06:37 PT 22.2 SECONDS (9.7-12.2) H 11/21/17 16:47 INR 1.9 11/21/17 16:47 APTT 40 SECONDS (21-34) H 11/21/17 16:47 - Constitutional Appears: Non-toxic, No Acute Distress, Chronically Ill - Head Exam Head Exam: ATRAUMATIC, NORMOCEPHALIC - Eye Exam Eye Exam: EOMI - ENT Exam ENT Exam: Mucous Membranes Moist Additional comments: Right IJ - Respiratory Exam Respiratory Exam: Clear to Ausculation Bilateral, NORMAL BREATHING PATTERN - Cardiovascular Exam Cardiovascular Exam: +S1, +S2 - GI/Abdominal Exam GI & Abdominal Exam: Soft, Normal Bowel Sounds. 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 Martinez, consulted- help appreciated wound care on board ID, Dr. Grimaldo, consulted- help appreciated continue cefepime and vancomycin per ID Sepsis resolving hypothermia, low white count on admission with possible sources including UTI and lower extremity wounds lactate on admission 4.0 patient had right IJ central line inserted in ED and given IVF, as well as empiric antibiotic coverage with rocephin, cipro, doxycycline, urine culture and blood cultures negative patient currently with normal body temperature, normotensive PMHx of Afib Xarelto 20mg POQD ASA 81mg PO QD CHF Lasix 20mg IV prior echo 07/2017, EF: 40-45% moderate diastolic dysfunction. Elevated left atrial pressure. Grade III restrictive diastolic dysfunction. RV systolic function is moderately reduced. Moderate tricupsid regurgitation. Trace pericardial effusion. HTN metoprolol 50mg PO QD Imdur 60mg po daily DM Januvia 50mg PO QD accucheck Q6h ISS Prophylactic measures Pepcid Xarelto Florastor All management per Dr. Baer
[2017-11-25] MEDS: Metoprolol Succinate 50 mg XL Tab PO SCH (09:55)
[2017-11-25] MEDS: Multiple Vitamins Tab PO SCH (09:55)
[2017-11-25] MEDS: Saccharomyces Boulardi 250 mg Cap PO SCH ×2 (09:56→17:20)
[2017-11-25] MEDS: Zinc Oxide Topical 30 gm Tube TOP SCH (10:00)
--- NOTE | 2017-11-25 12:23 | CP.PCM.PN ---
Subjective - Date & Time of Evaluation Date of Evaluation: 11/25/17 Time of Evaluation: 08:00 - Subjective Subjective: afeb confused NAD Objective - Vital Signs/Intake and Output Vital Signs (last 24 hours): Temp Pulse Resp BP Pulse Ox 97.2 F L 80 20 137/88 98 11/25/17 07:15 11/25/17 07:15 11/25/17 07:15 11/25/17 09:56 11/25/17 07:15 Intake and Output: 11/25/17 11/25/17 06:59 18:59 Intake Total 250 Output Total 700 Balance -450 - Medications Medications: Current Medications Aspirin (Aspirin Chewable) 81 mg PO DAILY [facility] Last Admin: 11/25/17 09:56 Dose: 81 mg Famotidine (Pepcid) 20 mg PO DAILY [facility] Last Admin: 11/25/17 09:55 Dose: 20 mg Furosemide (Lasix) 20 mg IVP DAILY [facility] Last Admin: 11/25/17 09:56 Dose: 20 mg Cefepime HCl (Maxipime Iv 1 Gm Premix) 1 gm in 50 mls @ 100 mls/hr IVPB Q12H [facility] PRN Reason: Protocol Last Admin: 11/25/17 01:55 Dose: 100 mls/hr Vancomycin/Sodium Chloride (Vancomycin 1 Gm/Ns 200 Ml) 1 gm in 200 mls @ 133.333 mls/hr IVPB Q48H [facility] PRN Reason: Protocol Stop: 11/29/17 14:31 Last Admin: 11/24/17 14:40 Dose: 133.333 mls/hr Insulin Human Regular (Novolin R) 0 unit SC ACHS [facility] PRN Reason: Protocol Last Admin: 11/25/17 07:30 Dose: Not Given Isosorbide Mononitrate (Imdur) 60 mg PO DAILY [facility] Last Admin: 11/25/17 09:56 Dose: 60 mg Metoprolol Succinate (Toprol Xl) 50 mg PO DAILY [facility] Last Admin: 11/25/17 09:55 Dose: 50 mg Multivitamins (Hexavitamin) 1 tab PO DAILY [facility] Last Admin: 11/25/17 09:55 Dose: 1 tab Petrolatum (Desitin Original) 0 gm TOP DAILY [facility] Last Admin: 11/25/17 10:00 Dose: 1 applic Rivaroxaban (Xarelto) 20 mg PO DAILY [facility] Last Admin: 11/25/17 09:56 Dose: 20 mg Saccharomyces Boulardii (Florastor) 250 mg PO BID [facility] Last Admin: 11/25/17 09:56 Dose: 250 mg Sitagliptin Phosphate (Januvia) 50 mg PO DAILY [facility] Last Admin: 11/25/17 09:56 Dose: 50 mg - Labs Labs: 11/24/17 06:16 11/25/17 06:37 PT 22.2 SECONDS (9.7-12.2) H 11/21/17 16:47 INR 1.9 11/21/17 16:47 APTT 40 SECONDS (21-34) H 11/21/17 16:47 - Constitutional Appears: Non-toxic, Chronically Ill - Head Exam Head Exam: NORMOCEPHALIC - Eye Exam Eye Exam: PERRL - ENT Exam ENT Exam: Mucous Membranes Dry - Neck Exam Neck Exam: absent: Lymphadenopathy - Respiratory Exam Respiratory Exam: Decreased Breath Sounds - Cardiovascular Exam Cardiovascular Exam: REGULAR RHYTHM - GI/Abdominal Exam GI & Abdominal Exam: Distended - Rectal Exam Rectal Exam: Deferred - Exam Exam: NORMAL INSPECTION - Extremities Exam Extremities Exam: Pedal Edema. absent: Calf Tenderness, Tenderness - Back Exam Back Exam: absent: CVA tenderness (L), CVA tenderness (R), NORMAL INSPECTION - Neurological Exam Neurological Exam: Altered - Psychiatric Exam Psychiatric exam: Depressed - Skin Skin Exam: Dry Assessment and Plan (1) Hypothermia Status: Acute (2) Pneumonia Status: Acute (3) Sepsis Status: Acute (4) Diabetes mellitus type 2 Status: Active (5) Ulcer of foot Status: Active - Assessment and Plan (Free Text) Assessment: cont wound care await cultures poor prognosis
--- NOTE | 2017-11-25 13:03 | CARD ---
APPROVED REPORT EKG Measurement Heart [id number] <Conclusion> Atrial fibrillation Possible Inferior infarct, age undetermined Anterolateral infarct, age undetermined Abnormal ECG
[2017-11-25 16:35] LABS: HEMOGLOBIN 7.8 g/dL (11.0-16.0); MEAN CELL VOLUME 75.5 fL (81.0-99.0); MEAN CORPUSCULAR HEMOGLOBIN 22.9 pg (27.0-31.0); MEAN CORPUSCULAR HGB CONC 30.3 g/dL (33.0-37.0); MEAN PLATELET VOLUME 8.6 fL (7.2-11.7); NRBC % 1.8 % (0.0-2.0); RBC 3.41 Mil/uL (3.80-5.20); RED CELL DISTRIBUTION WIDTH 20.3 % (11.5-14.5); WHITE BLOOD COUNT 4.8 K/uL (4.8-10.8)
[2017-11-25 18:29] LABS: BASO % 0.5 % (0.0-2.0); EOS # 0.1 K/uL (0.0-0.7); EOS % 1.1 % (0.0-4.0); LYMPH % 20.8 % (20.0-40.0); MONO # 0.8 K/uL (0.0-0.8); MONO % 17.2 % (0.0-10.0); NEUT # 2.9 K/uL (1.8-7.0); NEUT % 60.4 % (50.0-75.0)
[2017-11-26] MEDS: Cefepime IV 1 gm in Dextrose 1 GM/50 ML BAG IVPB SCH ×2 (01:10→12:48)
[2017-11-26 06:41] LABS: HEMOGLOBIN 7.8 g/dL (11.0-16.0); MEAN CELL VOLUME 74.8 fL (81.0-99.0); MEAN CORPUSCULAR HEMOGLOBIN 23.5 pg (27.0-31.0); MEAN CORPUSCULAR HGB CONC 31.4 g/dL (33.0-37.0); MEAN PLATELET VOLUME 9.3 fL (7.2-11.7); RBC 3.32 Mil/uL (3.80-5.20); RED CELL DISTRIBUTION WIDTH 20.2 % (11.5-14.5); WHITE BLOOD COUNT 4.6 K/uL (4.8-10.8)
[2017-11-26 06:42] LABS: ALB/GLOB RATIO 0.8 (1.0-2.1); CALCIUM 8.7 mg/dl (8.6-10.4)
[2017-11-26] MEDS: (Novolin R) Insulin Human Regular 100 units/ml vial SC SCH ×4 (07:42→22:11)
--- NOTE | 2017-11-26 08:55 | CP.PCM.PN ---
Subjective - Date & Time of Evaluation Date of Evaluation: 11/26/17 Time of Evaluation: 08:55 - Subjective Subjective: Medicine progress note for Dr. Baer's service Patient seen and examined at bedside. Patient found resting comfortably in bed. Patient awake/alert, only oriented to person. Attending, Dr. Baer reports long history of worsening dementia. Pt denies pain, but accurate ROS unavailable due to pt mental status. Daughter at bedside consents to blood transfusion and PICC line. Objective - Vital Signs/Intake and Output Vital Signs (last 24 hours): Temp Pulse Resp BP Pulse Ox 97.4 F L 64 20 115/80 99 11/26/17 07:00 11/26/17 07:10 11/26/17 07:00 11/26/17 07:00 11/26/17 07:00 Intake and Output: 11/26/17 11/26/17 06:59 18:59 Intake Total 470 Output Total 600 Balance -130 - Medications Medications: Current Medications Aspirin (Aspirin Chewable) 81 mg PO DAILY [facility] Last Admin: 11/25/17 09:56 Dose: 81 mg Famotidine (Pepcid) 20 mg PO DAILY [facility] Last Admin: 11/25/17 09:55 Dose: 20 mg Furosemide (Lasix) 20 mg IVP DAILY [facility] Last Admin: 11/25/17 09:56 Dose: 20 mg Cefepime HCl (Maxipime Iv 1 Gm Premix) 1 gm in 50 mls @ 100 mls/hr IVPB Q12H [facility] PRN Reason: Protocol Last Admin: 11/26/17 01:10 Dose: 100 mls/hr Vancomycin/Sodium Chloride (Vancomycin 1 Gm/Ns 200 Ml) 1 gm in 200 mls @ 133.333 mls/hr IVPB Q48H [facility] PRN Reason: Protocol Stop: 11/29/17 14:31 Last Admin: 11/24/17 14:40 Dose: 133.333 mls/hr Insulin Human Regular (Novolin R) 0 unit SC ACHS [facility] PRN Reason: Protocol Last Admin: 11/26/17 07:42 Dose: Not Given Isosorbide Mononitrate (Imdur) 60 mg PO DAILY [facility] Last Admin: 11/25/17 09:56 Dose: 60 mg Metoprolol Succinate (Toprol Xl) 50 mg PO DAILY [facility] Last Admin: 11/25/17 09:55 Dose: 50 mg Multivitamins (Hexavitamin) 1 tab PO DAILY [facility] Last Admin: 11/25/17 09:55 Dose: 1 tab Petrolatum (Desitin Original) 0 gm TOP DAILY [facility] Last Admin: 11/25/17 10:00 Dose: 1 applic Rivaroxaban (Xarelto) 20 mg PO DAILY [facility] Last Admin: 11/25/17 09:56 Dose: 20 mg Saccharomyces Boulardii (Florastor) 250 mg PO BID [facility] Last Admin: 11/25/17 17:20 Dose: 250 mg Sitagliptin Phosphate (Januvia) 50 mg PO DAILY [facility] Last Admin: 11/25/17 09:56 Dose: 50 mg - Labs Labs: 11/26/17 06:14 11/26/17 06:14 PT 22.2 SECONDS (9.7-12.2) H 11/21/17 16:47 INR 1.9 11/21/17 16:47 APTT 40 SECONDS (21-34) H 11/21/17 16:47 - Eye Exam Eye Exam: absent: Scleral icterus - Additional Findings Additional findings: - Constitutional Appears: Non-toxic, No Acute Distress, Chronically Ill - Head Exam Head Exam: ATRAUMATIC, NORMOCEPHALIC - Eye Exam Eye Exam: EOMI - ENT Exam ENT Exam: Mucous Membranes Moist Additional comments: Right IJ - Respiratory Exam Respiratory Exam: Clear to Ausculation Bilateral, NORMAL BREATHING PATTERN - Cardiovascular Exam Cardiovascular Exam: +S1, +S2 - GI/Abdominal Exam GI & Abdominal Exam: Soft, Normal Bowel Sounds. 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 Martinez, consulted- help appreciated - f/u reccs wound care nurse on board -f/u reccs ID, Dr. Grimaldo, consulted- help appreciated continue cefepime and vancomycin per ID Hypernatremia Na 150 this AM Start D5W @60cc/hr - f/u BMP @ 4pm Anemia Most likely chronic etiology Nursing reports no acute bleed Hgb down to 7.8 from admission 9 hemoccult Type and screen Type and cross 2 units (waiting for daughter to consent for altered pt - number given is disconnected) Fecal occult x 3 - for now will continue xarelto but will consider Sepsis resolving hypothermia, low white count on admission with possible sources including UTI and lower extremity wounds lactate on admission 4.0 patient had right IJ central line inserted in ED and given IVF, as well as empiric antibiotic coverage with rocephin, cipro, doxycycline, urine culture and blood cultures negative patient currently with normal body temperature, normotensive PMHx of Afib - continuing for now Xarelto 20mg POQD ASA 81mg PO QD CHF Lasix 20mg IV prior echo 07/2017, EF: 40-45% moderate diastolic dysfunction. Elevated left atrial pressure. Grade III restrictive diastolic dysfunction. RV systolic function is moderately reduced. Moderate tricupsid regurgitation. Trace pericardial effusion. HTN Well controlled metoprolol 50mg PO QD Imdur 60mg po daily CKD GFR 52 today Monitor DM Januvia 50mg PO QD accucheck Q6h ISS Electrolyte abnormalities K 3.4, repleted Prophylactic measures Pepcid Xarelto Florastor All management per Dr. Baer
[2017-11-26 09:02] LABS: LYMPH # 0.8 K/uL (1.0-4.3); MONO # 0.6 K/uL (0.0-0.8); NEUT # 3.2 K/uL (1.8-7.0)
[2017-11-26] MEDS: Metoprolol Succinate 50 mg XL Tab PO SCH (10:59)
[2017-11-26] MEDS: Saccharomyces Boulardi 250 mg Cap PO SCH ×2 (10:59→17:41)
[2017-11-26] MEDS: Multiple Vitamins Tab PO SCH (10:59)
[2017-11-26] MEDS: Zinc Oxide Topical 30 gm Tube TOP SCH (11:00)
[2017-11-26] MEDS: Vancomycin 1 gm/NS 200 ml 1 GM/200 ML BAG IVPB SCH (13:50)
--- NOTE | 2017-11-26 14:25 | CP.PCM.PN ---
Subjective - Date & Time of Evaluation Date of Evaluation: 11/26/17 Time of Evaluation: 09:00 - Subjective Subjective: more alert cultures neg d/c on IV to DE Objective - Vital Signs/Intake and Output Vital Signs (last 24 hours): Temp Pulse Resp BP Pulse Ox 97.4 F L 64 20 120/77 99 11/26/17 07:00 11/26/17 07:10 11/26/17 07:00 11/26/17 10:59 11/26/17 07:00 Intake and Output: 11/26/17 11/26/17 06:59 18:59 Intake Total 470 Output Total 600 Balance -130 - Medications Medications: Current Medications Aspirin (Aspirin Chewable) 81 mg PO DAILY [facility] Last Admin: 11/26/17 10:59 Dose: 81 mg Famotidine (Pepcid) 20 mg PO DAILY [facility] Last Admin: 11/26/17 10:59 Dose: 20 mg Furosemide (Lasix) 20 mg IVP DAILY [facility] Last Admin: 11/26/17 10:59 Dose: 20 mg Cefepime HCl (Maxipime Iv 1 Gm Premix) 1 gm in 50 mls @ 100 mls/hr IVPB Q12H [facility] PRN Reason: Protocol Last Admin: 11/26/17 12:48 Dose: 100 mls/hr Vancomycin/Sodium Chloride (Vancomycin 1 Gm/Ns 200 Ml) 1 gm in 200 mls @ 133.333 mls/hr IVPB Q48H [facility] PRN Reason: Protocol Stop: 11/29/17 14:31 Last Admin: 11/26/17 13:50 Dose: 133.333 mls/hr Dextrose (Dextrose 5% In Water 1000 Ml) 1,000 mls @ 60 mls/hr IV .[id number] [facility] Last Admin: 11/26/17 10:52 Dose: 60 mls/hr Potassium Chloride (Potassium Chloride 10 Meq/100 Ml) 10 meq in 100 mls @ 100 mls/hr IVPB Q2H [facility] Stop: 11/26/17 14:59 Last Admin: 11/26/17 13:51 Dose: 100 mls/hr Insulin Human Regular (Novolin R) 0 unit SC ACHS [facility] PRN Reason: Protocol Last Admin: 11/26/17 12:14 Dose: Not Given Isosorbide Mononitrate (Imdur) 60 mg PO DAILY [facility] Last Admin: 11/26/17 10:59 Dose: 60 mg Metoprolol Succinate (Toprol Xl) 50 mg PO DAILY [facility] Last Admin: 11/26/17 10:59 Dose: 50 mg Multivitamins (Hexavitamin) 1 tab PO DAILY [facility] Last Admin: 11/26/17 10:59 Dose: 1 tab Petrolatum (Desitin Original) 0 gm TOP DAILY [facility] Last Admin: 11/26/17 11:00 Dose: 1 applic Rivaroxaban (Xarelto) 20 mg PO DAILY [facility] Last Admin: 11/26/17 10:59 Dose: 20 mg Saccharomyces Boulardii (Florastor) 250 mg PO BID [facility] Last Admin: 11/26/17 10:59 Dose: 250 mg Sitagliptin Phosphate (Januvia) 50 mg PO DAILY [facility] Last Admin: 11/26/17 10:59 Dose: 50 mg - Labs Labs: 11/26/17 06:14 11/26/17 06:14 PT 22.2 SECONDS (9.7-12.2) H 11/21/17 16:47 INR 1.9 11/21/17 16:47 APTT 40 SECONDS (21-34) H 11/21/17 16:47 - Constitutional Appears: Non-toxic - Head Exam Head Exam: NORMOCEPHALIC - Eye Exam Eye Exam: EOMI Pupil Exam: NORMAL ACCOMODATION - ENT Exam ENT Exam: Mucous Membranes Dry - Neck Exam Neck Exam: absent: Lymphadenopathy - Respiratory Exam Respiratory Exam: Decreased Breath Sounds - Cardiovascular Exam Cardiovascular Exam: REGULAR RHYTHM Assessment and Plan (1) Hypothermia Status: Acute (2) Pneumonia Status: Acute (3) Sepsis Status: Acute (4) Diabetes mellitus type 2 Status: Active (5) Ulcer of foot Status: Active
--- NOTE | 2017-11-26 15:41 | CP.PCM.CON ---
History of Present Illness - History of Present Illness History of Present Illness: podiatry consult note for Dr. 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 Mack. who came to [facility] from [facility] for evaluation of elevated blood pressure and lethargy. Patient has no pedal complaints at this time. Patient has a history of Alzheimer's disease and is a poor historian. Multipodus boots intact to bilateral lower extremities at the time of visit. PMHx: Afib, HTN, COPD, T2DM, hyperlipidemia, CHF, PVD, chronic diabetic ulcers to bilateral lower extremities (right anterior arango having small nonhealing ulcers and dry surrounding skin without erythema, right anterior foot having 1.5x1.5" nonhealing ulcer, left foot having nonhealing ulcers and left arango having a large irregularly demarcated nonhealing ulcer) PSHx: 2 c-sections FHx: denies allergies: Ertapenem sodium (rash) Social History: Lives in a group home, denies tobacco, ETOH and illicit drug use. 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 Mack Review of Systems - Constitutional Constitutional: As Per HPI Past Patient History - Infectious Disease Hx of Infectious Diseases: None - Tetanus Immunizations Tetanus Immunization: Unknown - Past Medical History & Family History Past Medical History?: Yes - Past Social History Smoking Status: unknown - CARDIAC Hx Cardiac Disorders: Yes Hx Congestive Heart Failure: Yes Hx Hypercholesterolemia: Yes Hx Hypertension: Yes - PULMONARY Hx Chronic Obstructive Pulmonary Disease (COPD): Yes - NEUROLOGICAL Hx Neurological Disorder: Yes Hx Alzheimer's Disease: Yes Hx Dementia: Yes - HEENT Hx HEENT Problems: No - RENAL Hx Chronic Kidney Disease: No - ENDOCRINE/METABOLIC Hx Diabetes Mellitus Type 2: Yes - HEMATOLOGICAL/ONCOLOGICAL Hx Blood Disorders: No Hx Blood Transfusions: No Hx Blood Transfusion Reaction: No - INTEGUMENTARY Hx Dermatological Problems: Yes Other/Comment: Hx Diabetic foot ulcer and non healing wound - MUSCULOSKELETAL/RHEUMATOLOGICAL Hx Musculoskeletal Disorders: Yes Hx Falls: Yes - GASTROINTESTINAL Hx Gastrointestinal Disorders: No - GENITOURINARY/GYNECOLOGICAL Hx Genitourinary Disorders: Yes Hx Urinary Tract Infection: Yes - PSYCHIATRIC Hx Anxiety: Yes Hx Depression: Yes Hx Substance Use: No (unknown) - SURGICAL HISTORY Hx Surgeries: Yes Hx Section: Yes (x2) - ANESTHESIA Hx Anesthesia: Yes Hx Anesthesia Reactions: No Hx Malignant Hyperthermia: No Meds Allergies/Adverse Reactions: Allergies Allergy/AdvReac Type Severity Reaction Status Date / Time ertapenem sodium Allergy Verified 11/21/17 16:07 [From [facility]] - Medications Medications: Current Medications Aspirin (Aspirin Chewable) 81 mg PO DAILY [facility] Last Admin: 11/26/17 10:59 Dose: 81 mg Famotidine (Pepcid) 20 mg PO DAILY [facility] Last Admin: 11/26/17 10:59 Dose: 20 mg Furosemide (Lasix) 20 mg IVP DAILY [facility] Last Admin: 11/26/17 10:59 Dose: 20 mg Cefepime HCl (Maxipime Iv 1 Gm Premix) 1 gm in 50 mls @ 100 mls/hr IVPB Q12H [facility] PRN Reason: Protocol Last Admin: 11/26/17 12:48 Dose: 100 mls/hr Vancomycin/Sodium Chloride (Vancomycin 1 Gm/Ns 200 Ml) 1 gm in 200 mls @ 133.333 mls/hr IVPB Q48H [facility] PRN Reason: Protocol Stop: 11/29/17 14:31 Last Admin: 11/26/17 13:50 Dose: 133.333 mls/hr Dextrose (Dextrose 5% In Water 1000 Ml) 1,000 mls @ 60 mls/hr IV .[id number] [facility] Last Admin: 11/26/17 10:52 Dose: 60 mls/hr Insulin Human Regular (Novolin R) 0 unit SC ACHS [facility] PRN Reason: Protocol Last Admin: 11/26/17 12:14 Dose: Not Given Isosorbide Mononitrate (Imdur) 60 mg PO DAILY [facility] Last Admin: 11/26/17 10:59 Dose: 60 mg Metoprolol Succinate (Toprol Xl) 50 mg PO DAILY [facility] Last Admin: 11/26/17 10:59 Dose: 50 mg Multivitamins (Hexavitamin) 1 tab PO DAILY [facility] Last Admin: 11/26/17 10:59 Dose: 1 tab Petrolatum (Desitin Original) 0 gm TOP DAILY [facility] Last Admin: 11/26/17 11:00 Dose: 1 applic Rivaroxaban (Xarelto) 20 mg PO DAILY [facility] Last Admin: 11/26/17 10:59 Dose: 20 mg Saccharomyces Boulardii (Florastor) 250 mg PO BID [facility] Last Admin: 11/26/17 10:59 Dose: 250 mg Sitagliptin Phosphate (Januvia) 50 mg PO DAILY [facility] Last Admin: 11/26/17 10:59 Dose: 50 mg Physical Exam - Constitutional Appears: Well, Non-toxic, No Acute Distress - Extremities Exam Additional comments: vasc: nonpalpable DP/PT pulses b/l, TG wnl, CF T< 3 sec to all digits neuro: grossly diminished derm: no edema, no erythema,nails are trimmed to hygienic length right lower extremity: open superficial ulcerations on the medial malleolus measuring 2.0x 2.5x 0.5 with granular base and fibrotic border, mild serous drainage, no malodor, 2 superficial ulcerations on the anterior leg measuring 0.5 cm x 1cm x 0.5cm each with granular base and fibrotic border with mild serous drainage, no purulence, no ascending cellulitis left lower extremity: superficial ulceration on anterior leg measuring 1.5cm x 2cm x 0.5 cm with granular base and fibrotic border with no serous drainage, no fluctuance, no ascending cellulitis, no malodor ortho: no pain on palpation of bilateral lower extremities, ankle ROM, STJ ROM 1st ray ROM diminished - Neurological Exam Neurological exam: Alert, Oriented x3 - Psychiatric Exam Psychiatric exam: Normal Affect, Normal Mood Results - Vital Signs Recent Vital Signs: Last Vital Signs Temp 97.4 F L 11/26/17 07:00 Pulse 64 11/26/17 07:10 Resp 20 11/26/17 07:00 BP 120/77 11/26/17 10:59 Pulse Ox 99 11/26/17 07:00 - Labs Result Diagrams: 11/26/17 06:14 11/26/17 06:14 Labs: Laboratory Results - last 24 hr 11/25/17 11/25/17 11/25/17 15:49 16:26 20:52 WBC 4.8 RBC 3.41 L Hgb 7.8 L Hct 25.7 L MCV 75.5 L MCH 22.9 L MCHC 30.3 L RDW 20.3 H Plt Count 130 MPV 8.6 Neut % (Auto) 60.4 Lymph % (Auto) 20.8 Whiteside % (Auto) 17.2 H Eos % (Auto) 1.1 Baso % (Auto) 0.5 Neut # (Auto) 2.9 Lymph # (Auto) 1.0 Whiteside # (Auto) 0.8 Eos # (Auto) 0.1 Baso # (Auto) 0.0 Sodium Potassium Chloride Carbon Dioxide Anion Gap BUN Creatinine Est GFR ( Amer) Est GFR (Non-Af Amer) POC Glucose (mg/dL) 157 H 143 H Random Glucose Calcium Phosphorus Magnesium Total Bilirubin AST ALT Alkaline Phosphatase Total Protein Albumin Globulin Albumin/Globulin Ratio Vancomycin Trough Blood Type Blood Type Confirm Antibody Screen 11/26/17 11/26/17 11/26/17 06:07 06:14 06:14 WBC 4.6 L RBC 3.32 L Hgb 7.8 L Hct 24.8 L MCV 74.8 L MCH 23.5 L MCHC 31.4 L RDW 20.2 H Plt Count 143 MPV 9.3 Neut % (Auto) 69.0 Lymph % (Auto) 18.0 L Whiteside % (Auto) 13.0 H Eos % (Auto) 0.0 Baso % (Auto) 0.0 Neut # (Auto) 3.2 Lymph # (Auto) 0.8 L Whiteside # (Auto) 0.6 Eos # (Auto) 0.0 Baso # (Auto) 0.0 Sodium 150 H Potassium 3.4 L Chloride 113 H Carbon Dioxide 24 Anion Gap 16 BUN 38 H Creatinine 1.2 Est GFR ( Amer) 52 Est GFR (Non-Af Amer) 43 POC Glucose (mg/dL) 116 H Random Glucose 107 H Calcium 8.7 Phosphorus 3.3 Magnesium 1.9 Total Bilirubin 0.7 AST 26 ALT 28 Alkaline Phosphatase 115 Total Protein 7.0 Albumin 3.0 L Globulin 4.0 H Albumin/Globulin Ratio 0.8 L Vancomycin Trough Blood Type Blood Type Confirm Antibody Screen 11/26/17 11/26/17 11/26/17 12:09 12:51 13:46 WBC RBC Hgb Hct MCV MCH MCHC RDW Plt Count MPV Neut % (Auto) Lymph % (Auto) Whiteside % (Auto) Eos % (Auto) Baso % (Auto) Neut # (Auto) Lymph # (Auto) Whiteside # (Auto) Eos # (Auto) Baso # (Auto) Sodium Potassium Chloride Carbon Dioxide Anion Gap BUN Creatinine Est GFR ( Amer) Est GFR (Non-Af Amer) POC Glucose (mg/dL) 147 H Random Glucose Calcium Phosphorus Magnesium Total Bilirubin AST ALT Alkaline Phosphatase Total Protein Albumin Globulin Albumin/Globulin Ratio Vancomycin Trough 9.1 Blood Type A NEGATIVE Blood Type Confirm A NEGATIVE Antibody Screen Negative Assessment & Plan - Assessment and Plan (Free Text) Assessment: 87 y/o female seen at bedside regarding bilateral superficial chronic nonhealing ulcerations to lower extremities secondary to diabetes and PVD Plan: patient evaluated and chart reviewed discussed in detail with attending Dr. Mack labs and vitals reviewed; afebrile applied xeroform, DSD to bilateral lower extremities cont. wearing multipodus boots while bedbound cont abx as recommended Rx dakins solution wound cx of bilateral legs obtained, f/u results podiatry will continue to monitor while patient remains in house
[2017-11-26] MEDS ORDERED: Dakin's Topical 0.25%-Half Strength (480 ml) TOP SCH (16:30)
[2017-11-26 18:12] LABS: CALCIUM 8.6 mg/dl (8.6-10.4)
--- NOTE | 2017-11-26 21:12 | CON ---
DATE: At the request of Lucio Whitmore DPM HISTORY OF PRESENT ILLNESS: This is an 87-year-old black female, well known to me for previous inpatient and outpatient care of chronic ulcerations of her ankles. The patient had undergone successful Unna boot therapy in the past with controlling of her lower extremity edema which then resolved her ulcers in her ankles; however, recently, the patient refused diuresis, which has made her extremities edematous and recurrence of her ankle ulcers. Today, we find them relatively clean of cellulitis and pus; however, due to extensive edema of the bilateral lower extremities, these ankle ulcers are noted to be chronic in nature. Suggested to the patient that Unna boot therapy again be instituted; however, the patient refuses. We will follow up with the patient at [facility]. Nicholas Hathaway DPM
[2017-11-27] MEDS: Cefepime IV 1 gm in Dextrose 1 GM/50 ML BAG IVPB SCH ×2 (00:38→12:35)
[2017-11-27 07:22] LABS: HEMOGLOBIN 8.8 g/dL (11.0-16.0); MEAN CORPUSCULAR HEMOGLOBIN 23.4 pg (27.0-31.0); MEAN CORPUSCULAR HGB CONC 31.1 g/dL (33.0-37.0); MEAN PLATELET VOLUME 9.3 fL (7.2-11.7); RBC 3.76 Mil/uL (3.80-5.20); RED CELL DISTRIBUTION WIDTH 19.9 % (11.5-14.5)
[2017-11-27] MEDS: (Novolin R) Insulin Human Regular 100 units/ml vial SC SCH ×2 (07:30→11:59)
[2017-11-27 07:42] LABS: ALB/GLOB RATIO 0.8 (1.0-2.1); ALBUMIN 3.2 g/dL (3.5-5.0); CALCIUM 8.5 mg/dl (8.6-10.4)
[2017-11-27 07:44] LABS: WHITE BLOOD COUNT 7.3 K/uL (4.8-10.8)
[2017-11-27 08:57] LABS: LYMPH # 1.3 K/uL (1.0-4.3); MONO # 0.6 K/uL (0.0-0.8); NEUT # 5.4 K/uL (1.8-7.0)
[2017-11-27] MEDS: Multiple Vitamins Tab PO SCH (09:54)
[2017-11-27] MEDS: Metoprolol Succinate 50 mg XL Tab PO SCH (09:54)
[2017-11-27] MEDS: Saccharomyces Boulardi 250 mg Cap PO SCH (09:55)
[2017-11-27] MEDS: Zinc Oxide Topical 30 gm Tube TOP SCH (09:57)
[2017-11-27] MEDS ORDERED: Dakin's Topical 0.25%-Half Strength (480 ml) TOP SCH (10:00)
[2017-11-27 11:31] VITALS: BP 134/87; PULSE 71; RESP 18; TEMP 97.8
[2017-11-27 12:05] VITALS: O2SAT 98
--- NOTE | 2017-11-27 12:40 | CP.PCM.PN ---
Subjective - Date & Time of Evaluation Date of Evaluation: 11/27/17 Time of Evaluation: 09:50 - Subjective Subjective: Medicine progress note for Dr. Baer's service Patient seen and examined. Patient states she feels well and denies any complaints at this time. Patient had run of vtach overnight but was asymptomatic. EKG at that time showed afib. Objective - Vital Signs/Intake and Output Vital Signs (last 24 hours): Temp Pulse Resp BP Pulse Ox 97.8 F 71 18 134/87 98 11/27/17 07:05 11/27/17 07:10 11/27/17 07:05 11/27/17 09:55 11/27/17 07:05 Intake and Output: 11/27/17 11/27/17 06:59 18:59 Intake Total 1610 Output Total 600 Balance 1010 - Medications Medications: Current Medications Aspirin (Aspirin Chewable) 81 mg PO DAILY [facility] Last Admin: 11/27/17 09:54 Dose: 81 mg Famotidine (Pepcid) 20 mg PO DAILY [facility] Last Admin: 11/27/17 09:54 Dose: 20 mg Furosemide (Lasix) 20 mg IVP DAILY [facility] Last Admin: 11/27/17 09:55 Dose: 20 mg Cefepime HCl (Maxipime Iv 1 Gm Premix) 1 gm in 50 mls @ 100 mls/hr IVPB Q12H [facility] PRN Reason: Protocol Last Admin: 11/27/17 12:35 Dose: 100 mls/hr Vancomycin/Sodium Chloride (Vancomycin 1 Gm/Ns 200 Ml) 1 gm in 200 mls @ 133.333 mls/hr IVPB Q48H [facility] PRN Reason: Protocol Stop: 11/29/17 14:31 Last Admin: 11/26/17 13:50 Dose: 133.333 mls/hr Dextrose (Dextrose 5% In Water) 500 mls @ 60 mls/hr IV .Q8H20M [facility] Last Admin: 11/27/17 05:32 Dose: 60 mls/hr Insulin Human Regular (Novolin R) 0 unit SC ACHS [facility] PRN Reason: Protocol Last Admin: 11/27/17 11:59 Dose: Not Given Isosorbide Mononitrate (Imdur) 60 mg PO DAILY [facility] Last Admin: 11/27/17 09:54 Dose: 60 mg Metoprolol Succinate (Toprol Xl) 50 mg PO DAILY [facility] Last Admin: 11/27/17 09:54 Dose: 50 mg Multivitamins (Hexavitamin) 1 tab PO DAILY [facility] Last Admin: 11/27/17 09:54 Dose: 1 tab Petrolatum (Desitin Original) 0 gm TOP DAILY [facility] Last Admin: 11/27/17 09:57 Dose: 1 applic Rivaroxaban (Xarelto) 20 mg PO DAILY [facility] Last Admin: 11/27/17 09:54 Dose: 20 mg Saccharomyces Boulardii (Florastor) 250 mg PO BID [facility] Last Admin: 11/27/17 09:55 Dose: 250 mg Sitagliptin Phosphate (Januvia) 50 mg PO DAILY [facility] Last Admin: 11/27/17 09:55 Dose: 50 mg Sodium Hypochlorite (Dakins Solution 0.25%) 0 ml TOP DAILY [facility] Last Admin: 11/27/17 11:14 Dose: 1 applic - Labs Labs: 11/27/17 07:07 11/27/17 07:07 PT 22.2 SECONDS (9.7-12.2) H 11/21/17 16:47 INR 1.9 11/21/17 16:47 APTT 40 SECONDS (21-34) H 11/21/17 16:47 - Constitutional Appears: No Acute Distress, Chronically Ill - Head Exam Head Exam: ATRAUMATIC, NORMOCEPHALIC - Eye Exam Eye Exam: EOMI Additional comments: right IJ TLC - ENT Exam ENT Exam: Mucous Membranes Moist - Respiratory Exam Respiratory Exam: Clear to Ausculation Bilateral, NORMAL BREATHING PATTERN - Cardiovascular Exam Cardiovascular Exam: +S1, +S2 - GI/Abdominal Exam GI & Abdominal Exam: Soft, Normal Bowel Sounds. absent: Tenderness - Exam Additional comments: marsh catheter with yellow urine - Extremities Exam Additional comments: lower extremities wrapped with clean gauze dressing, heel protectors in place - Neurological Exam Neurological Exam: Alert, Awake - Skin Skin Exam: Warm Assessment and Plan - Assessment and Plan (Free Text) Assessment: Lower extremity wounds Patient's home remote advisor, Dr. Martinez, consulted- help appreciated - f/u reccs wound care nurse on board -f/u reccs ID, Dr. Grimaldo, consulted- help appreciated continue cefepime and vancomycin per ID for 6 more days after today Hypernatremia Na 147 this morning Anemia Most likely chronic etiology Nursing reports no acute bleed Hgb down to 7.8 from admission 9 transfused 1 unit PRBC, hgb 8.8 today 11/27 Sepsis resolving hypothermia, low white count on admission with possible sources including UTI and lower extremity wounds lactate on admission 4.0 patient had right IJ central line inserted in ED and given IVF, as well as empiric antibiotic coverage with rocephin, cipro, doxycycline, urine culture and blood cultures negative patient currently with normal body temperature, normotensive PMHx of Afib - continuing for now Xarelto 20mg POQD ASA 81mg PO QD CHF Lasix 20mg IV- restart lasix 40mg PO on discharge prior echo 07/2017, EF: 40-45% moderate diastolic dysfunction. Elevated left atrial pressure. Grade III restrictive diastolic dysfunction. RV systolic function is moderately reduced. Moderate tricupsid regurgitation. Trace pericardial effusion. HTN Well controlled metoprolol 50mg PO QD Imdur 60mg po daily CKD GFR 57 today Monitor DM Januvia 50mg PO QD accucheck Q6h ISS Electrolyte abnormalities K 3.9, continue to monitor Prophylactic measures Pepcid Xarelto Florastor All management per Dr. Baer Patient is stable for discharge back to [facility] per Dr. Baer. Patient is to continue Vancomycin 1g Q48h for 6 more days and Cefepime 1g Q12h for 6 more days. Patient will needs right TLC for 6 more days of antibiotics. Patient is to resume other home medications. Patient is to follow up with Dr. Baer and Dr. Martinez upon discharge. Patient should return to hospital if symptoms worsen or reoccur
--- NOTE | 2017-11-27 15:01 | CARD ---
APPROVED REPORT EKG Measurement Heart [id number] <Conclusion> Atrial fibrillation Possible Inferior infarct, age undetermined Cannot rule out Anterior infarct, age undetermined Abnormal ECG
== END 2017-11-27 14:34 | DRG 871 ==
LOC: C.ER 15:55 → C.9E 17:53 → C.6T 22:51
PROVIDERS: ADMIT Internal Medicine; ATTEND Internal Medicine Pulmonary Disease
PROC: 05HY33Z Insertion of Infusion Device into Upper Vein, Percutaneous Approach (ICD-10-PCS; principal; 2017-11-21)
PROC: 30233N1 Transfusion of Nonautologous Red Blood Cells into Peripheral Vein, Percutaneous Approach (ICD-10-PCS; 2017-11-27)
DX: A41.9 Sepsis, unspecified organism (principal); J18.9 Pneumonia, unspecified organism; I50.32 Chronic diastolic (congestive) heart failure; I13.0 Hypertensive heart and chronic kidney disease with heart failure and stage 1 through stage 4 chronic kidney disease, or unspecified chronic kidney disease; J44.0 Chronic obstructive pulmonary disease with (acute) lower respiratory infection; L97.919 Non-pressure chronic ulcer of unspecified part of right lower leg with unspecified severity; L97.929 Non-pressure chronic ulcer of unspecified part of left lower leg with unspecified severity; L03.119 Cellulitis of unspecified part of limb; N39.0 Urinary tract infection, site not specified; E87.0 Hyperosmolality and hypernatremia; I47.2 Ventricular tachycardia; I48.91 Unspecified atrial fibrillation; N18.9 Chronic kidney disease, unspecified; E11.621 Type 2 diabetes mellitus with foot ulcer; L97.509 Non-pressure chronic ulcer of other part of unspecified foot with unspecified severity; F32.9 Major depressive disorder, single episode, unspecified; F02.80 Dementia in other diseases classified elsewhere, unspecified severity, without behavioral disturbance, psychotic disturbance, mood disturbance, and anxiety; G30.9 Alzheimer's disease, unspecified; E78.00 Pure hypercholesterolemia, unspecified; E11.51 Type 2 diabetes mellitus with diabetic peripheral angiopathy without gangrene; F41.9 Anxiety disorder, unspecified; E86.0 Dehydration; E11.622 Type 2 diabetes mellitus with other skin ulcer; E11.22 Type 2 diabetes mellitus with diabetic chronic kidney disease; L98.499 Non-pressure chronic ulcer of skin of other sites with unspecified severity; Z88.8 Allergy status to other drugs, medicaments and biological substances; Z87.440 Personal history of urinary (tract) infections; E03.9 Hypothyroidism, unspecified; E87.5 Hyperkalemia; I87.2 Venous insufficiency (chronic) (peripheral); I27.20 Pulmonary hypertension, unspecified; Z79.01 Long term (current) use of anticoagulants; I36.1 Nonrheumatic tricuspid (valve) insufficiency; D64.9 Anemia, unspecified

== ENCOUNTER 2017-11-28 15:38 | Inpatient (IN) | payer MEDICARE, OTHER ==
[2017-11-28 15:39] VITALS: BMI 30.2
--- NOTE | 2017-11-28 16:57 | C.PDOC ---
History Of Present Illness 87 y/o female presents to the ER for evaluation after she was referred by her shelter for pulling out the catheter in her right neck. She needs the catheter for chronic abx for foot infection for another 7 days. Daughter states that her mother does not want to wear the catheter. Of note, patient is incoherent and demented. Time Seen by Provider: 11/28/17 15:57 Chief Complaint (Nursing): Medical Clearance History Per: Family (Daughter) Past Medical History Reviewed: Historical Data, Nursing Documentation, Vital Signs Vital Signs: Last Vital Signs Temp 98.9 F 11/28/17 15:49 Pulse 52 L 11/28/17 15:49 Resp 18 11/28/17 15:49 BP 133/74 11/28/17 15:49 Pulse Ox 100 11/28/17 18:25 - Medical History PMH: Alzheimer's Disease, Anxiety, Atrial Fibrillation, CHF, COPD, Dementia, Depression, Diabetes, HTN, Hypercholesterolemia, Peripheral Edema Denies: Chronic Kidney Disease Surgical History: - [facility] Procedures INJECT/INFUSE NEC (11/24/12) INSERTION OF INFUSION DEV INTO SUP VENA CAVA, PERC APPROACH (07/18/17) INSERTION OF INFUSION DEVICE INTO UPPER VEIN, PERC APPROACH (11/21/17) NONEXCIS DEBRID OF WOUND, INFECT, OR BURN (01/19/13) TRANSFUSE NONAUT RED BLOOD CELLS IN PERIPH VEIN, PERC (11/21/17) Family History: States: No Known Family Hx - Social History Hx Tobacco Use: No Hx Alcohol Use: No (unknown) Hx Substance Use: No (unknown) - Immunization History Hx Tetanus Toxoid Vaccination: No Hx Influenza Vaccination: No Hx Pneumococcal Vaccination: No Review Of Systems Review Of Systems: ROS cannot be obtained secondary to pt's inabilty to answer questions. Physical Exam - Physical Exam Appears: Other (elderly, demented, obese) Skin: Normal Color, Warm Head: Atraumatic, Normacephalic Eye(s): bilateral: Normal Inspection Nose: Normal Oral Mucosa: Moist Neck: Supple Chest: Symmetrical Cardiovascular: Rhythm Regular Respiratory: Normal Breath Sounds, No Rales, No Rhonchi, No Wheezing Extremity: Other (bilateral feet wrapped with bunny boots for chronic foot wounds, boots were removed upon request of daughter) Neurological/Psych: Other (demented) ED Course And Treatment - Laboratory Results Result Diagrams: 11/28/17 16:52 11/28/17 16:52 Lab Interpretation: Normal (trop neg, INR wnl) ECG: Interpreted By Me, Viewed By Me ECG Rhythm: Atrial Fibrillation ECG Interpretation: No Changes From Prior, Abnormal Rate From EC O2 Sat by Pulse Oximetry: 100 (RA) Pulse Ox Interpretation: Normal - Radiology CXR: Interpreted by Me CXR Interpretation: Yes: No Acute Disease Progress Note: 1730: d/w alek Sanchez to admit. tried to get PICC line placed , too late in the day. suggest PICC line in AM Disposition Doctor Will See Patient In The: Hospital Counseled Patient/Family Regarding: Studies Performed, Diagnosis - Disposition Disposition: HOSPITALIZED Disposition Time: 17:46 Condition: GOOD - Clinical Impression Clinical Impression: Chronic osteomyelitis of foot, S/P PICC central line placement - Scribe Statement The provider has reviewed the documentation as recorded by the Alexandraibe Jesus Alberto Sullivan Provider Attestation: All medical record entries made by the Scribe were at my direction and personally dictated by me. I have reviewed the chart and agree that the record accurately reflects my personal performance of the history, physical exam, medical decision making, and the department course for this patient. I have also personally directed, reviewed, and agree with the discharge instructions and disposition.
[2017-11-28 16:58] LABS: BASO # 0.1 K/uL (0.0-0.2); EOS # 0.1 K/uL (0.0-0.7); HEMOGLOBIN 8.7 g/dL (11.0-16.0); MEAN CORPUSCULAR HEMOGLOBIN 23.3 pg (27.0-31.0); MEAN CORPUSCULAR HGB CONC 30.8 g/dL (33.0-37.0); WHITE BLOOD COUNT 6.1 K/uL (4.8-10.8)
[2017-11-28 17:04] LABS: INR 1.5; PROTHROMBIN TIME 16.5 SECONDS (9.7-12.2)
[2017-11-28 17:08] LABS: EOS % 1.6 % (0.0-4.0); LYMPH % 16.6 % (20.0-40.0); MEAN CELL VOLUME 75.7 fL (81.0-99.0); MONO # 0.8 K/uL (0.0-0.8); MONO % 13.9 % (0.0-10.0); NEUT # 4.1 K/uL (1.8-7.0); NEUT % 66.9 % (50.0-75.0); NRBC % 0.5 % (0.0-2.0); RBC 3.74 Mil/uL (3.80-5.20); RED CELL DISTRIBUTION WIDTH 20.1 % (11.5-14.5)
[2017-11-28 17:30] LABS: ALB/GLOB RATIO 0.7 (1.0-2.1); ALBUMIN 3.1 g/dL (3.5-5.0); ALT/SGPT 22 U/L (9-52); AST/SGOT 25 U/L (14-36); BLOOD UREA NITROGEN 28 mg/dL (7-17); CALCIUM 8.5 mg/dl (8.6-10.4); GFR AFRICAN-AMERICAN > 60; GFR NON-AFRICAN AMERICAN 60
[2017-11-28 18:42] VITALS: RESP 20
[2017-11-28] MEDS ORDERED: Oxycodone/Acetaminophen 5/325 mg Tab PO PRN (19:27)
[2017-11-28] MEDS: Cefepime IV 1 gm in Dextrose 1 GM/50 ML BAG IVPB SCH (21:11)
[2017-11-28] MEDS ORDERED: Cefepime (Maxipime) 1 g Inj IVPB SCH (22:00)
[2017-11-28] MEDS: Vancomycin 1 gm/NS 200 ml 1 GM/200 ML BAG IVPB SCH (22:01)
[2017-11-28] MEDS ORDERED: Vancomycin 1 g Inj IVPB SCH (23:00)
[2017-11-29] MEDS: Dakin's Topical 0.25%-Half Strength (480 ml) TOP SCH (09:42)
[2017-11-29] MEDS: Multiple Vitamins Tab PO SCH (09:43)
[2017-11-29] MEDS: Metoprolol Succinate 50 mg XL Tab PO SCH (09:43)
[2017-11-29] MEDS: Potassium Chloride 10 mEq ER Tab PO SCH (09:43)
[2017-11-29] MEDS: Saccharomyces Boulardi 250 mg Cap PO SCH ×2 (09:43→18:08)
[2017-11-29] MEDS: Cefepime IV 1 gm in Dextrose 1 GM/50 ML BAG IVPB SCH ×2 (09:44→21:29)
[2017-11-29] MEDS: Vancomycin 1 gm/NS 200 ml 1 GM/200 ML BAG IVPB SCH ×2 (10:45→21:29)
--- NOTE | 2017-11-29 14:37 | CP.PCM.CON ---
History of Present Illness - History of Present Illness History of Present Illness: 87 y/o female presents to the ER for evaluation after she was referred by her long term for pulling out the catheter in her right neck. She needs the catheter for chronic abx for foot infection for another 7 days. Daughter states that her mother does not want to wear the catheter. Of note, patient is incoherent and demented. - Medical History PMH: Alzheimer's Disease, Anxiety, Atrial Fibrillation, CHF, COPD, Dementia, Depression, Diabetes, HTN, Hypercholesterolemia, Peripheral Edema Denies: Chronic Kidney Disease Surgical History: - [facility] Procedures INJECT/INFUSE NEC (11/24/12) INSERTION OF INFUSION DEV INTO SUP VENA CAVA, PERC APPROACH (07/18/17) INSERTION OF INFUSION DEVICE INTO UPPER VEIN, PERC APPROACH (11/21/17) NONEXCIS DEBRID OF WOUND, INFECT, OR BURN (01/19/13) TRANSFUSE NONAUT RED BLOOD CELLS IN PERIPH VEIN, PERC (11/21/17) Review of Systems - Review of Systems All systems: reviewed and no additional remarkable complaints except - Constitutional Constitutional: As Per HPI - EENT Eyes: absent: As Per HPI, Blind Spots, Blurred Vision, Change in Vision, Decreased Night Vision, Diplopia, Discharge, Dry Eye, Exophthalmos, Floaters, Irritation, Itchy Eyes, Loss of Peripheral Vision, Pain, Photophobia, Requires Corrective Lenses, Sees Flashes, Spots in Vision, Tunnel Vision, Other Visual Disturbances, Loss of Vision, Other Ears: absent: As Per HPI, Decreased Hearing, Ear Discharge, Ear Pain, Tinnitus, Abnormal Hearing, Disequilibrium, Dizziness, Other Nose/Mouth/Throat: absent: As Per HPI, Epistaxis, Nasal Congestion, Nasal Discharge, Nasal Obstruction, Nasal Trauma, Nose Pain, Post Nasal Drip, Sinus Pain, Sinus Pressure, Bleeding Gums, Change in Voice, Dental Pain, Dry Mouth, Dysphagia, Halitosis, Hoarsness, Lip Swelling, Mouth Lesions, Mouth Pain, Odynophagia, Sore Throat, Throat Swelling, Tongue Swelling, Facial Pain, Neck Pain, Neck Mass, Other - Breasts Breasts: absent: As Per HPI, Change in Shape, Mass, Pain, Nipple Discharge, Nipple Inversion, Skin Changes, Swelling, Other - Cardiovascular Cardiovascular: absent: As Per HPI, Acrocyanosis, Chest Pain, Chest Pain at Rest , Chest Pain with Activity, Claudication, Diaphoresis, Dyspnea, Dyspnea on Exertion, Edema, Irregular Heart Rhythm, Pain Radiating to Arm/Neck/Jaw, Leg Edema, Leg Ulcers, Lightheadedness, Orthopnea, Palpitations, Paroxysmal Nocturnal Dyspnea, Pedal Edema, Radiating Pain, Rapid Heart Rate, Slow Heart Rate, Syncope, Other - Respiratory Respiratory: absent: As Per HPI, Cough, Dyspnea, Hemoptysis, Dyspnea on Exertion , Wheezing, Snoring, Stridor, Pain on Inspiration, Chest Congestion, Excessive Mucous Production, Change in Mucous Color, Pain with Coughing, Other - Gastrointestinal Gastrointestinal: absent: As Per HPI, Abdominal Pain, Belching, Bloating, Change in Bowel Habits, Change in Stool Character, Coffee Ground Emesis, Constipation, Cramping, Diarrhea, Dyspepsia, Dysphagia, Early Satiety, Excessive Flatus, Fecal Incontinence, Heartburn, Hematemesis, Hematochezia, Loose Stools, Melena, Nausea, Odynophagia, Temesmus, Vomiting, Other - Genitourinary Genitourinary: absent: As Per HPI, Change in Urinary Stream, Difficulty Urinating, Dysuria, Flank Pain, Hematuria, Pyuria, Nocturia, Urinary Incontinence, Urinary Frequency, Urinary Hesitance, Urinary Urgency, Voiding Freq/Small Amts, Freq UTI, Hx Renal/Bladder Calculi, Hx /Renal Surgery, Bladder Distension, Other - Reproductive: Female Reproductive:Female: absent: As Per HPI, Amenorrhea, Amenorrhea/ Control, Currently Menstual, Cycle <21 Days, Cycle >35 Days, Cycle Variable, Menses 1-7 Days, Menses >/= 8 Days, Menses Variable, Cycle > 4 Weeks Between, No Menses for 6 Months, Heavy Menses, Light Menses, Normal Menses, Spotting Between Cycles , S/P Hysterectomy, Menopausal, Post Menopausal, Premenarche, Abnormal Vaginal Bleeding, Dysmenorrhea, Dyspareunia, Genital Lesions, Genital Pruritis, Pelvic Pain, Prolapse Symptoms, Sexual Dysfunction, Vaginal Discharge, Vaginal Dryness , Vaginal Odor, Vaginal Pruritis, Other - Menstruation Menstruation: absent: As Per HPI, Amenorrhea, Amenorrhea/ Control, Currently Menstual, Cycle <21 Days, Cycle >35 Days, Cycle Variable, Menses 1-7 Days, Menses >/= 8 Days, Menses Variable, Cycle > 4 Weeks Between, No Menses for 6 Months, Heavy Menses, Light Menses, Normal Menses, Spotting Between Cycles , S/P Hysterectomy, Menopausal, Post Menopausal, Premenarche, Abnormal Vaginal Bleeding, Dysmenorrhea, Other - Musculoskeletal Musculoskeletal: As Per HPI - Integumentary Integumentary: As Per HPI - Neurological Neurological: As Per HPI - Psychiatric Psychiatric: absent: As Per HPI, Abnormal Sleep Pattern, Anhedonia, Anxiety, Auditory Hallucinations, Behavioral Changes, Change in Appetite, Change in Libido, Confusion, Depression, Difficulty Concentrating, Hallucinations, Homicidal Ideation, Hopelessness, Irritability, Memory Loss, Mood Swings, Panic Attacks, Paranoia, Suicidal Ideation, Visual Hallucinations, Tactile Hallucinations, Other - Endocrine Endocrine: absent: As Per HPI, Change in Body Appearance, Change in Libido, Cold Intolorance, Deepening of Voice, Excessive Sweating, Fatigue, Flushing, Heat Intolorance, Increase in Ring/Shoe/Hat Size, Palpitations, Polydipsia, Polyphagia, Polyuria, Other - Hematologic/Lymphatic Hematologic: absent: As Per HPI, Easy Bleeding, Easy Bruising, Lymphadenopathy, Other Past Patient History - Infectious Disease Hx of Infectious Diseases: None - Tetanus Immunizations Tetanus Immunization: Unknown - Past Medical History & Family History Past Medical History?: Yes - Past Social History Smoking Status: Never Smoked - CARDIAC Hx Atrial Fibrillation: Yes Hx Congestive Heart Failure: Yes Hx Hypercholesterolemia: Yes Hx Hypertension: Yes Hx Peripheral Edema: Yes - PULMONARY Hx Chronic Obstructive Pulmonary Disease (COPD): Yes - NEUROLOGICAL Hx Alzheimer's Disease: Yes Hx Dementia: Yes - HEENT Hx HEENT Problems: No - RENAL Hx Chronic Kidney Disease: No - ENDOCRINE/METABOLIC Hx Diabetes Mellitus Type 2: Yes - HEMATOLOGICAL/ONCOLOGICAL Hx Blood Disorders: No Hx Blood Transfusions: No Hx Blood Transfusion Reaction: No - INTEGUMENTARY Hx Dermatological Problems: Yes Other/Comment: Hx Diabetic foot ulcer and non healing wound - MUSCULOSKELETAL/RHEUMATOLOGICAL Hx Musculoskeletal Disorders: Yes Hx Falls: Yes - GASTROINTESTINAL Hx Gastrointestinal Disorders: No - GENITOURINARY/GYNECOLOGICAL Hx Genitourinary Disorders: Yes Hx Urinary Tract Infection: Yes - PSYCHIATRIC Hx Anxiety: Yes Hx Depression: Yes Hx Substance Use: No (unknown) - SURGICAL HISTORY Hx Surgeries: Yes Hx Section: Yes (x2) - ANESTHESIA Hx Anesthesia: Yes Hx Anesthesia Reactions: No Hx Malignant Hyperthermia: No Has any member of the family had a problem w/ anesthesia?: No Meds Allergies/Adverse Reactions: Allergies Allergy/AdvReac Type Severity Reaction Status Date / Time ertapenem sodium Allergy Verified 11/21/17 16:07 [facility] - Medications Medications: Current Medications Aspirin (Aspirin Chewable) 81 mg PO DAILY [facility] Last Admin: 11/29/17 09:43 Dose: 81 mg Furosemide (Lasix) 40 mg PO DAILY [facility] Last Admin: 11/29/17 09:43 Dose: 40 mg Cefepime HCl (Maxipime Iv 1 Gm Premix) 1 gm in 50 mls @ 100 mls/hr IVPB Q12 [facility] Last Admin: 11/29/17 09:44 Dose: 100 mls/hr Vancomycin/Sodium Chloride (Vancomycin 1 Gm/Ns 200 Ml) 1 gm in 200 mls @ 133 mls/hr IVPB Q12 [facility] Stop: 12/03/17 22:01 Last Admin: 11/29/17 10:45 Dose: 133 mls/hr Isosorbide Mononitrate (Imdur) 60 mg PO DAILY [facility] Last Admin: 11/29/17 09:43 Dose: 60 mg Lactulose (Enulose) 20 gm PO Q12 [facility] Last Admin: 11/29/17 09:43 Dose: 20 gm Metoprolol Succinate (Toprol Xl) 50 mg PO DAILY [facility] Last Admin: 11/29/17 09:43 Dose: 50 mg Multivitamins (Hexavitamin) 1 tab PO DAILY [facility] Last Admin: 11/29/17 09:43 Dose: 1 tab Oxycodone/Acetaminophen (Percocet 5/325 Mg Tab) 1 tab PO Q4H PRN PRN Reason: pain Stop: 12/01/17 19:28 Potassium Chloride (Klor-Con 10) 10 meq PO DAILY [facility] Last Admin: 11/29/17 09:43 Dose: 10 meq Rivaroxaban (Xarelto) 20 mg PO DAILY [facility] Last Admin: 11/29/17 11:05 Dose: 20 mg Saccharomyces Boulardii (Florastor) 250 mg PO BID [facility] Last Admin: 11/29/17 09:43 Dose: 250 mg Sitagliptin Phosphate (Januvia) 50 mg PO DAILY [facility] Last Admin: 11/29/17 09:43 Dose: 50 mg Sodium Hypochlorite (Dakins Solution 0.25%) 1 ml TOP DAILY [facility] Last Admin: 11/29/17 09:42 Dose: 1 applic Trazodone HCl (Desyrel) 50 mg PO HS [facility] Last Admin: 11/28/17 21:11 Dose: 50 mg Physical Exam - Constitutional Appears: Non-toxic, Chronically Ill - Head Exam Head Exam: NORMOCEPHALIC - Eye Exam Eye Exam: PERRL. absent: Scleral icterus - ENT Exam ENT Exam: Mucous Membranes Dry, Normal External Ear Exam, Normal Oropharynx - Neck Exam Neck exam: Negative for: Lymphadenopathy, Thyromegaly - Respiratory Exam Respiratory Exam: Decreased Breath Sounds, Clear to Auscultation Bilateral - Cardiovascular Exam Cardiovascular Exam: REGULAR RHYTHM, +S1, +S2 - GI/Abdominal Exam GI & Abdominal Exam: Diminished Bowel Sounds, Soft. absent: Tenderness - Rectal Exam Rectal Exam: Deferred - Exam Exam: NORMAL INSPECTION - Extremities Exam Extremities exam: Positive for: pedal edema, pedal pulses present. Negative for : calf tenderness, tenderness - Back Exam Back exam: absent: CVA tenderness (L), CVA tenderness (R), paraspinal tenderness - Neurological Exam Neurological exam: Alert, Altered, CN II-XII Intact, Reflexes Normal - Psychiatric Exam Psychiatric exam: Normal Mood - Skin Skin Exam: Dry Additional comments: left leg ulcer Results - Vital Signs Recent Vital Signs: Last Vital Signs Temp 97.7 F 11/29/17 08:00 Pulse 92 H 11/29/17 08:00 Resp 20 11/29/17 08:00 BP 133/88 11/29/17 09:43 Pulse Ox 100 11/29/17 08:00 - Labs Result Diagrams: 11/28/17 16:52 11/28/17 16:52 Labs: Laboratory Results - last 24 hr 11/28/17 11/28/17 11/28/17 16:52 16:52 16:52 WBC 6.1 RBC 3.74 L Hgb 8.7 L Hct 28.3 L MCV 75.7 L MCH 23.3 L MCHC 30.8 L RDW 20.1 H Plt Count 151 MPV 9.0 Neut % (Auto) 66.9 Lymph % (Auto) 16.6 L Mccormick % (Auto) 13.9 H Eos % (Auto) 1.6 Baso % (Auto) 1.0 Neut # (Auto) 4.1 Lymph # (Auto) 1.0 Mccormick # (Auto) 0.8 Eos # (Auto) 0.1 Baso # (Auto) 0.1 PT 16.5 H INR 1.5 APTT 37 H Sodium 146 Potassium 3.5 L Chloride 111 H Carbon Dioxide 24 Anion Gap 15 BUN 28 H Creatinine 0.9 Est GFR ( Amer) > 60 Est GFR (Non-Af Amer) 60 POC Glucose (mg/dL) Random Glucose 139 H Calcium 8.5 L Total Bilirubin 0.8 AST 25 ALT 22 Alkaline Phosphatase 114 Troponin I 0.0390 Total Protein 7.3 Albumin 3.1 L Globulin 4.2 H Albumin/Globulin Ratio 0.7 L 11/28/17 11/29/17 11/29/17 21:45 07:18 11:30 WBC RBC Hgb Hct MCV MCH MCHC RDW Plt Count MPV Neut % (Auto) Lymph % (Auto) Mccormick % (Auto) Eos % (Auto) Baso % (Auto) Neut # (Auto) Lymph # (Auto) Mccormick # (Auto) Eos # (Auto) Baso # (Auto) PT INR APTT Sodium Potassium Chloride Carbon Dioxide Anion Gap BUN Creatinine Est GFR ( Amer) Est GFR (Non-Af Amer) POC Glucose (mg/dL) 186 H 135 H 165 H Random Glucose Calcium Total Bilirubin AST ALT Alkaline Phosphatase Troponin I Total Protein Albumin Globulin Albumin/Globulin Ratio Assessment & Plan (1) Chronic osteomyelitis of foot Status: Acute (2) S/P PICC central line placement Status: Acute (3) Bronchitis Status: Active (4) Diabetes mellitus type 2 Status: Active (5) Dyslipidemia Status: Active (6) Ulcer of foot Status: Active (7) Weakness of limb Status: Active (8) Atrial fibrillation Status: Acute (9) CHF (congestive heart failure) Status: Acute (10) Cellulitis and abscess of foot Status: Acute (11) Hypothermia Status: Acute (12) Leg ulcer, left Status: Acute (13) Musculoskeletal pain Status: Acute (14) PAD (peripheral artery disease) Status: Acute - Assessment and Plan (Free Text) Assessment: await repeat cultures cont wound care IV antibiotics
[2017-11-30] MEDS: Potassium Chloride 10 mEq ER Tab PO SCH (10:56)
[2017-11-30] MEDS: Multiple Vitamins Tab PO SCH (10:56)
[2017-11-30] MEDS: Saccharomyces Boulardi 250 mg Cap PO SCH ×2 (10:56→17:26)
[2017-11-30] MEDS: Metoprolol Succinate 50 mg XL Tab PO SCH (10:56)
[2017-11-30] MEDS: Cefepime IV 1 gm in Dextrose 1 GM/50 ML BAG IVPB SCH ×2 (10:58→21:06)
[2017-11-30] MEDS: Dakin's Topical 0.25%-Half Strength (480 ml) TOP SCH (10:59)
[2017-12-01 07:08] LABS: HEMOGLOBIN 8.8 g/dL (11.0-16.0); MEAN CELL VOLUME 76.1 fL (81.0-99.0); MEAN CORPUSCULAR HEMOGLOBIN 23.4 pg (27.0-31.0); MEAN CORPUSCULAR HGB CONC 30.7 g/dL (33.0-37.0); MEAN PLATELET VOLUME 9.1 fL (7.2-11.7); RBC 3.75 Mil/uL (3.80-5.20); RED CELL DISTRIBUTION WIDTH 19.9 % (11.5-14.5); WHITE BLOOD COUNT 7.6 K/uL (4.8-10.8)
[2017-12-01 07:46] LABS: ALB/GLOB RATIO 0.8 (1.0-2.1); ALBUMIN 3.2 g/dL (3.5-5.0); ALT/SGPT 21 U/L (9-52); AST/SGOT 36 U/L (14-36); BLOOD UREA NITROGEN 21 mg/dL (7-17); CALCIUM 8.8 mg/dl (8.6-10.4); GFR AFRICAN-AMERICAN > 60; GFR NON-AFRICAN AMERICAN > 60
--- NOTE | 2017-12-01 07:57 | CP.PCM.PN ---
Subjective - Date & Time of Evaluation Date of Evaluation: 12/01/17 Time of Evaluation: 07:57 - Subjective Subjective: Medicine progress note for Dr. Baer's service Patient seen and examined. Nursing reports no acute events overnig Patient states she feels well and denies any complaints at this time. Pt with baseline of dementia. ROS unavailable due to pt condition. Objective - Vital Signs/Intake and Output Vital Signs (last 24 hours): Temp Pulse Resp BP Pulse Ox 98.5 F 89 20 121/83 98 11/30/17 23:48 11/30/17 23:48 11/30/17 23:48 11/30/17 23:48 11/30/17 23:48 Intake and Output: 12/01/17 12/01/17 06:59 18:59 Intake Total 320 Balance 320 - Medications Medications: Current Medications Aspirin (Aspirin Chewable) 81 mg PO DAILY [facility] Last Admin: 11/30/17 10:56 Dose: 81 mg Furosemide (Lasix) 40 mg PO DAILY [facility] Last Admin: 11/30/17 10:57 Dose: 40 mg Cefepime HCl (Maxipime Iv 1 Gm Premix) 1 gm in 50 mls @ 100 mls/hr IVPB Q12 [facility] Last Admin: 11/30/17 21:06 Dose: 100 mls/hr Vancomycin/Sodium Chloride (Vancomycin 1 Gm/Ns 200 Ml) 1 gm in 200 mls @ 133.333 mls/hr IVPB Q24H [facility] PRN Reason: Protocol Stop: 12/06/17 10:01 Isosorbide Mononitrate (Imdur) 60 mg PO DAILY [facility] Last Admin: 11/30/17 10:56 Dose: 60 mg Lactulose (Enulose) 20 gm PO Q12 [facility] Last Admin: 11/30/17 21:05 Dose: 20 gm Metoprolol Succinate (Toprol Xl) 50 mg PO DAILY [facility] Last Admin: 11/30/17 10:56 Dose: 50 mg Multivitamins (Hexavitamin) 1 tab PO DAILY [facility] Last Admin: 11/30/17 10:56 Dose: 1 tab Oxycodone/Acetaminophen (Percocet 5/325 Mg Tab) 1 tab PO Q4H PRN PRN Reason: pain Stop: 12/01/17 19:28 Potassium Chloride (Klor-Con 10) 10 meq PO DAILY [facility] Last Admin: 11/30/17 10:56 Dose: 10 meq Rivaroxaban (Xarelto) 20 mg PO DAILY [facility] Last Admin: 11/30/17 10:56 Dose: 20 mg Saccharomyces Boulardii (Florastor) 250 mg PO BID [facility] Last Admin: 11/30/17 17:26 Dose: 250 mg Sitagliptin Phosphate (Januvia) 50 mg PO DAILY [facility] Last Admin: 11/30/17 10:56 Dose: 50 mg Sodium Hypochlorite (Dakins Solution 0.25%) 1 ml TOP DAILY [facility] Last Admin: 11/30/17 10:59 Dose: 1 applic Trazodone HCl (Desyrel) 50 mg PO HS [facility] Last Admin: 11/30/17 21:06 Dose: 50 mg - Labs Labs: 12/01/17 06:40 12/01/17 06:40 PT 16.5 SECONDS (9.7-12.2) H 11/28/17 16:52 INR 1.5 11/28/17 16:52 APTT 37 SECONDS (21-34) H 11/28/17 16:52 - Additional Findings Additional findings: - Constitutional Appears: No Acute Distress, Chronically Ill - Head Exam Head Exam: ATRAUMATIC, NORMOCEPHALIC - Eye Exam Eye Exam: EOMI Additional comments: right IJ TLC - ENT Exam ENT Exam: Mucous Membranes Moist - Respiratory Exam Respiratory Exam: Clear to Ausculation Bilateral, NORMAL BREATHING PATTERN - Cardiovascular Exam Cardiovascular Exam: +S1, +S2 - GI/Abdominal Exam GI & Abdominal Exam: Soft, Normal Bowel Sounds. absent: Tenderness - Exam Additional comments: marsh catheter with yellow urine - Extremities Exam Additional comments: lower extremities wrapped with clean gauze dressing, heel protectors in place - Neurological Exam Neurological Exam: Alert, Awake - Skin Skin Exam: Warm Assessment and Plan - Assessment and Plan (Free Text) Plan: Lower extremity wounds Patient's home delivery person, Dr. Martinez, consulted- help appreciated - f/u rec wound care nurse on board -f/u reccs ID, Dr. Grimaldo, consulted- help appreciated continue cefepime and vancomycin per ID (pt has two more days of IV abx - last dose 12/03/17) - will switch to PO antibioitcs at that time Florastor 250mg PO BID Percocet 5/325mg PO Q4H PRN f/u repeat wound culture Anemia Most likely chronic etiology Hgb stable 8.8 PMHx of Afib Xarelto 20mg POQD ASA 81mg PO QD CHF Lasix 40mg PO prior echo 07/2017, EF: 40-45% moderate diastolic dysfunction. Elevated left atrial pressure. Grade III restrictive diastolic dysfunction. RV systolic function is moderately reduced. Moderate tricupsid regurgitation. Trace pericardial effusion. HTN Well controlled metoprolol 50mg PO QD Imdur 60mg po daily CKD Renal function stable at this time Cr. 0.8 on AM labs - GFR as low as 32 on last admission - close monitoring as pt on Vanco DM Januvia 50mg PO QD accucheck Q6h ISS Hypoglycemia protocol Constipation Lactulose 20 gm PO Q12H Insomnia Trazadone 50mg PO HS Electrolyte abnormalities Will monitor and replete Prophylactic measures Pepcid Xarelto Florastor Francisco Madden PGY-[address] Baer
[2017-12-01] MEDS ORDERED: Dextrose 50% SYRINGE Inj (50 ml) IV PRN (08:48)
[2017-12-01] MEDS ORDERED: Glucagon Recombinant 1 mg Inj IM PRN (08:48)
[2017-12-01 10:05] LABS: EOS # 0.1 K/uL (0.0-0.7); LYMPH # 1.2 K/uL (1.0-4.3); MONO # 0.9 K/uL (0.0-0.8); NEUT # 5.4 K/uL (1.8-7.0)
[2017-12-01] MEDS: Metoprolol Succinate 50 mg XL Tab PO SCH (10:38)
[2017-12-01] MEDS: Cefepime IV 1 gm in Dextrose 1 GM/50 ML BAG IVPB SCH ×2 (10:39→21:39)
[2017-12-01] MEDS: Multiple Vitamins Tab PO SCH (10:39)
[2017-12-01] MEDS: Potassium Chloride 10 mEq ER Tab PO SCH (10:39)
[2017-12-01] MEDS: Saccharomyces Boulardi 250 mg Cap PO SCH ×2 (10:46→17:44)
[2017-12-01] MEDS: Vancomycin 1 gm/NS 200 ml 1 GM/200 ML BAG IVPB SCH (11:41)
--- NOTE | 2017-12-01 12:03 | CP.PCM.PN ---
Subjective - Date & Time of Evaluation Date of Evaluation: 12/01/17 Time of Evaluation: 08:00 - Subjective Subjective: vanco adjusted wawake confused nad Objective - Vital Signs/Intake and Output Vital Signs (last 24 hours): Temp Pulse Resp BP Pulse Ox 98.3 F 88 20 130/74 96 12/01/17 08:07 12/01/17 08:07 12/01/17 08:07 12/01/17 10:39 12/01/17 08:07 Intake and Output: 12/01/17 12/01/17 06:59 18:59 Intake Total 320 Balance 320 - Medications Medications: Current Medications Aspirin (Aspirin Chewable) 81 mg PO DAILY [facility] Last Admin: 12/01/17 10:38 Dose: 81 mg Dextrose (Dextrose 50% Inj) 0 ml IV STAT PRN; Protocol PRN Reason: Hypoglycemia Protocol Dextrose (Glutose 15) 15 gm PO ONCE PRN; Protocol PRN Reason: Hypoglycemia Protocol Furosemide (Lasix) 40 mg PO DAILY [facility] Last Admin: 12/01/17 10:39 Dose: 40 mg Glucagon (Glucagen Diagnostic Kit) 1 mg IM STAT PRN; Protocol PRN Reason: Hypoglycemia Protocol Cefepime HCl (Maxipime Iv 1 Gm Premix) 1 gm in 50 mls @ 100 mls/hr IVPB Q12 [facility] Last Admin: 12/01/17 10:39 Dose: 100 mls/hr Vancomycin/Sodium Chloride (Vancomycin 1 Gm/Ns 200 Ml) 1 gm in 200 mls @ 133.333 mls/hr IVPB Q24H [facility] PRN Reason: Protocol Stop: 12/06/17 10:01 Last Admin: 12/01/17 11:41 Dose: 133.333 mls/hr Dextrose (Dextrose 5% In Water 1000 Ml) 1,000 mls @ 0 mls/hr IV .Q0M PRN; Protocol; Per Protocol PRN Reason: Hypoglycemia Protocol Isosorbide Mononitrate (Imdur) 60 mg PO DAILY [facility] Last Admin: 12/01/17 10:38 Dose: 60 mg Lactulose (Enulose) 20 gm PO Q12 [facility] Last Admin: 12/01/17 10:44 Dose: 20 gm Metoprolol Succinate (Toprol Xl) 50 mg PO DAILY [facility] Last Admin: 12/01/17 10:38 Dose: 50 mg Multivitamins (Hexavitamin) 1 tab PO DAILY [facility] Last Admin: 12/01/17 10:39 Dose: 1 tab Oxycodone/Acetaminophen (Percocet 5/325 Mg Tab) 1 tab PO Q4H PRN PRN Reason: pain Stop: 12/01/17 19:28 Potassium Chloride (Klor-Con 10) 10 meq PO DAILY [facility] Last Admin: 12/01/17 10:39 Dose: 10 meq Rivaroxaban (Xarelto) 20 mg PO DAILY [facility] Last Admin: 12/01/17 10:43 Dose: 20 mg Saccharomyces Boulardii (Florastor) 250 mg PO BID [facility] Last Admin: 12/01/17 10:46 Dose: 250 mg Sitagliptin Phosphate (Januvia) 50 mg PO DAILY [facility] Last Admin: 12/01/17 10:38 Dose: 50 mg Sodium Hypochlorite (Dakins Solution 0.25%) 1 ml TOP DAILY [facility] Last Admin: 11/30/17 10:59 Dose: 1 applic Trazodone HCl (Desyrel) 50 mg PO HS [facility] Last Admin: 11/30/17 21:06 Dose: 50 mg - Labs Labs: 12/01/17 06:40 12/01/17 06:40 PT 16.5 SECONDS (9.7-12.2) H 11/28/17 16:52 INR 1.5 11/28/17 16:52 APTT 37 SECONDS (21-34) H 11/28/17 16:52 - Constitutional Appears: Non-toxic, Chronically Ill - Head Exam Head Exam: NORMOCEPHALIC - Eye Exam Eye Exam: PERRL - ENT Exam ENT Exam: Mucous Membranes Dry - Neck Exam Neck Exam: absent: Lymphadenopathy - Respiratory Exam Respiratory Exam: Decreased Breath Sounds - Cardiovascular Exam Cardiovascular Exam: REGULAR RHYTHM - GI/Abdominal Exam GI & Abdominal Exam: Distended Assessment and Plan (1) Chronic osteomyelitis of foot Status: Acute (2) S/P PICC central line placement Status: Acute (3) Bronchitis Status: Active (4) Diabetes mellitus type 2 Status: Active (5) Dyslipidemia Status: Active (6) Ulcer of foot Status: Active (7) Weakness of limb Status: Active (8) Atrial fibrillation Status: Acute (9) CHF (congestive heart failure) Status: Acute (10) Cellulitis and abscess of foot Status: Acute (11) Hypothermia Status: Acute (12) Leg ulcer, left Status: Acute (13) Musculoskeletal pain Status: Acute (14) PAD (peripheral artery disease) Status: Acute
[2017-12-01] MEDS: Dakin's Topical 0.25%-Half Strength (480 ml) TOP SCH (12:45)
--- NOTE | 2017-12-01 17:26 | CP.PCM.CON ---
History of Present Illness - History of Present Illness History of Present Illness: Podiatry consult note for Dr. 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 Pt well-known to her director food and beverage Dr. Chua. Pt recently discharged last week from [facility] back to [facility] for PICC line abx for lower extremity wound infection. Per EMR, pt again admitted to hospital 11/28/16 after pt removed her own PICC line at [facility]. Pt is seen resting comfortably in bed at time of visit, with daugther present at the bedside. Pt denies any pain or discomfort to the B/L lower extremities at this time. Denies f/n/v/c/sob/cp/weakness or dizziness at this time. Review of Systems - Review of Systems Review of Systems: all systems reviewed and found neg outside hpi Past Patient History - Infectious Disease Hx of Infectious Diseases: None - Tetanus Immunizations Tetanus Immunization: Unknown - Past Medical History & Family History Past Medical History?: Yes - Past Social History Smoking Status: Never Smoked - CARDIAC Hx Congestive Heart Failure: Yes Hx Hypercholesterolemia: Yes Hx Hypertension: Yes - PULMONARY Hx Chronic Obstructive Pulmonary Disease (COPD): Yes - NEUROLOGICAL Hx Alzheimer's Disease: Yes Hx Dementia: Yes - HEENT Hx HEENT Problems: No - RENAL Hx Chronic Kidney Disease: No - ENDOCRINE/METABOLIC Hx Diabetes Mellitus Type 2: Yes - HEMATOLOGICAL/ONCOLOGICAL Hx Blood Disorders: No Hx Blood Transfusions: No Hx Blood Transfusion Reaction: No - INTEGUMENTARY Hx Dermatological Problems: Yes Other/Comment: Hx Diabetic foot ulcer and non healing wound - MUSCULOSKELETAL/RHEUMATOLOGICAL Hx Musculoskeletal Disorders: Yes Hx Falls: Yes - GASTROINTESTINAL Hx Gastrointestinal Disorders: No - GENITOURINARY/GYNECOLOGICAL Hx Genitourinary Disorders: Yes Hx Urinary Tract Infection: Yes - PSYCHIATRIC Hx Anxiety: Yes Hx Depression: Yes Hx Substance Use: No (unknown) - SURGICAL HISTORY Hx Surgeries: Yes Hx Section: Yes (x2) - ANESTHESIA Hx Anesthesia: Yes Hx Anesthesia Reactions: No Hx Malignant Hyperthermia: No Has any member of the family had a problem w/ anesthesia?: No Meds Allergies/Adverse Reactions: Allergies Allergy/AdvReac Type Severity Reaction Status Date / Time ertapenem sodium Allergy Verified 11/21/17 16:07 [From [facility]] - Medications Medications: Current Medications Aspirin (Aspirin Chewable) 81 mg PO DAILY [facility] Last Admin: 12/01/17 10:38 Dose: 81 mg Dextrose (Dextrose 50% Inj) 0 ml IV STAT PRN; Protocol PRN Reason: Hypoglycemia Protocol Dextrose (Glutose 15) 15 gm PO ONCE PRN; Protocol PRN Reason: Hypoglycemia Protocol Furosemide (Lasix) 40 mg PO DAILY [facility] Last Admin: 12/01/17 10:39 Dose: 40 mg Glucagon (Glucagen Diagnostic Kit) 1 mg IM STAT PRN; Protocol PRN Reason: Hypoglycemia Protocol Cefepime HCl (Maxipime Iv 1 Gm Premix) 1 gm in 50 mls @ 100 mls/hr IVPB Q12 [facility] Last Admin: 12/01/17 10:39 Dose: 100 mls/hr Vancomycin/Sodium Chloride (Vancomycin 1 Gm/Ns 200 Ml) 1 gm in 200 mls @ 133.333 mls/hr IVPB Q24H [facility] PRN Reason: Protocol Stop: 12/06/17 10:01 Last Admin: 12/01/17 11:41 Dose: 133.333 mls/hr Dextrose (Dextrose 5% In Water 1000 Ml) 1,000 mls @ 0 mls/hr IV .Q0M PRN; Protocol; Per Protocol PRN Reason: Hypoglycemia Protocol Isosorbide Mononitrate (Imdur) 60 mg PO DAILY [facility] Last Admin: 12/01/17 10:38 Dose: 60 mg Lactulose (Enulose) 20 gm PO Q12 [facility] Last Admin: 12/01/17 10:44 Dose: 20 gm Metoprolol Succinate (Toprol Xl) 50 mg PO DAILY [facility] Last Admin: 12/01/17 10:38 Dose: 50 mg Multivitamins (Hexavitamin) 1 tab PO DAILY [facility] Last Admin: 12/01/17 10:39 Dose: 1 tab Oxycodone/Acetaminophen (Percocet 5/325 Mg Tab) 1 tab PO Q4H PRN PRN Reason: pain Stop: 12/01/17 19:28 Potassium Chloride (Klor-Con 10) 10 meq PO DAILY [facility] Last Admin: 12/01/17 10:39 Dose: 10 meq Rivaroxaban (Xarelto) 20 mg PO DAILY [facility] Last Admin: 12/01/17 10:43 Dose: 20 mg Saccharomyces Boulardii (Florastor) 250 mg PO BID [facility] Last Admin: 12/01/17 10:46 Dose: 250 mg Sitagliptin Phosphate (Januvia) 50 mg PO DAILY [facility] Last Admin: 12/01/17 10:38 Dose: 50 mg Sodium Hypochlorite (Dakins Solution 0.25%) 1 ml TOP DAILY [facility] Last Admin: 12/01/17 12:45 Dose: 1 applic Trazodone HCl (Desyrel) 50 mg PO HS [facility] Last Admin: 11/30/17 21:06 Dose: 50 mg Physical Exam - Constitutional Appears: Non-toxic, No Acute Distress - Extremities Exam Extremities exam: Negative for: calf tenderness Additional comments: b/l LE exam: VASC- nonpalpable DP/PT pulses b/l, TG wnl, CF T< 3 sec to all digits, minimal pedal edema neuro: grossly diminished b/l derm: right lower extremity: open superficial ulcerations on the medial malleolus measuring 2.0x 2.5x 0.5 with granular base and fibrotic border, mild serous drainage, no malodor, 2 superficial ulcerations on the anterior leg measuring 0.5 cm x 1cm x 0.5cm each with granular base and fibrotic border with mild serous drainage, no purulence, no ascending cellulitis left lower extremity: superficial ulceration on anterior leg measuring 1.5cm x 2cm x 0.5 cm with granular base and fibrotic border with no serous drainage, no fluctuance, no ascending cellulitis, no malodor ortho: no pain on palpation of bilateral lower extremities - Neurological Exam Neurological exam: Alert - Psychiatric Exam Psychiatric exam: Normal Affect, Normal Mood Results - Vital Signs Recent Vital Signs: Last Vital Signs Temp 97.8 F 12/01/17 16:18 Pulse 78 12/01/17 16:18 Resp 20 12/01/17 16:18 BP 109/73 12/01/17 16:18 Pulse Ox 100 12/01/17 16:18 - Labs Result Diagrams: 12/01/17 06:40 12/01/17 06:40 Labs: Laboratory Results - last 24 hr 11/30/17 12/01/17 12/01/17 21:25 06:40 06:40 WBC 7.6 RBC 3.75 L Hgb 8.8 L Hct 28.6 L MCV 76.1 L MCH 23.4 L MCHC 30.7 L RDW 19.9 H Plt Count 157 MPV 9.1 Neut % (Auto) 71.0 Lymph % (Auto) 16.0 L [place] % (Auto) 12.0 H Eos % (Auto) 1.0 Baso % (Auto) 0.0 Neut # (Auto) 5.4 Lymph # (Auto) 1.2 [place] # (Auto) 0.9 H Eos # (Auto) 0.1 Baso # (Auto) 0.0 Sodium 148 Potassium 3.9 Chloride 112 H Carbon Dioxide 24 Anion Gap 16 BUN 21 H Creatinine 0.8 Est GFR ( Amer) > 60 Est GFR (Non-Af Amer) > 60 POC Glucose (mg/dL) 154 H Random Glucose 123 H Calcium 8.8 Phosphorus 2.0 L Magnesium 1.9 Total Bilirubin 0.7 AST 36 D ALT 21 Alkaline Phosphatase 129 H Total Protein 7.3 Albumin 3.2 L Globulin 4.1 H Albumin/Globulin Ratio 0.8 L 12/01/17 12/01/17 12/01/17 07:37 11:06 16:32 WBC RBC Hgb Hct MCV MCH MCHC RDW Plt Count MPV Neut % (Auto) Lymph % (Auto) [place] % (Auto) Eos % (Auto) Baso % (Auto) Neut # (Auto) Lymph # (Auto) [place] # (Auto) Eos # (Auto) Baso # (Auto) Sodium Potassium Chloride Carbon Dioxide Anion Gap BUN Creatinine Est GFR ( Amer) Est GFR (Non-Af Amer) POC Glucose (mg/dL) 132 H 190 H 170 H Random Glucose Calcium Phosphorus Magnesium Total Bilirubin AST ALT Alkaline Phosphatase Total Protein Albumin Globulin Albumin/Globulin Ratio Assessment & Plan - Assessment and Plan (Free Text) Assessment: 87 y/o female seen at bedside regarding B/L superficial chronic nonhealing ulcerations to lower extremities secondary to diabetes and PVD Plan: patient seen and evaluated chart, labs and vitals reviewed plan discussed with attending dr. chua Reapplied xeroform, DSD to b/l LE c/w multipodus boots b/l at all times while in bed per ID Dr. Grimaldo: no need for new PICC line, will continue IV abx for now with possible switch to po order for q12 dressing change with 1/4% dakins and wet to dry dressing f/u new wound cx's stable per podiatry, will follow
--- NOTE | 2017-12-02 07:17 | CP.PCM.PN ---
Subjective - Date & Time of Evaluation Date of Evaluation: 12/02/17 Time of Evaluation: 07:17 - Subjective Subjective: Medicine progress note for Dr. Baer Patient seen and examined. Patient states she is doing well. No acute events overnight per nursing. Patient tolerating diet well. Suture in right side of neck from prior TLC removed, patient tolerated well. Objective - Vital Signs/Intake and Output Vital Signs (last 24 hours): Temp Pulse Resp BP Pulse Ox 97.8 F 81 20 143/85 97 12/02/17 00:05 12/02/17 00:05 12/02/17 00:05 12/02/17 00:05 12/02/17 00:05 Intake and Output: 12/02/17 12/02/17 06:59 18:59 Intake Total 400 240 Balance 400 240 - Medications Medications: Current Medications Aspirin (Aspirin Chewable) 81 mg PO DAILY [facility] Last Admin: 12/01/17 10:38 Dose: 81 mg Dextrose (Dextrose 50% Inj) 0 ml IV STAT PRN; Protocol PRN Reason: Hypoglycemia Protocol Dextrose (Glutose 15) 15 gm PO ONCE PRN; Protocol PRN Reason: Hypoglycemia Protocol Furosemide (Lasix) 40 mg PO DAILY [facility] Last Admin: 12/01/17 10:39 Dose: 40 mg Glucagon (Glucagen Diagnostic Kit) 1 mg IM STAT PRN; Protocol PRN Reason: Hypoglycemia Protocol Cefepime HCl (Maxipime Iv 1 Gm Premix) 1 gm in 50 mls @ 100 mls/hr IVPB Q12 [facility] Last Admin: 12/01/17 21:39 Dose: 100 mls/hr Vancomycin/Sodium Chloride (Vancomycin 1 Gm/Ns 200 Ml) 1 gm in 200 mls @ 133.333 mls/hr IVPB Q24H [facility] PRN Reason: Protocol Stop: 12/06/17 10:01 Last Admin: 12/01/17 11:41 Dose: 133.333 mls/hr Dextrose (Dextrose 5% In Water 1000 Ml) 1,000 mls @ 0 mls/hr IV .Q0M PRN; Protocol; Per Protocol PRN Reason: Hypoglycemia Protocol Isosorbide Mononitrate (Imdur) 60 mg PO DAILY [facility] Last Admin: 12/01/17 10:38 Dose: 60 mg Lactulose (Enulose) 20 gm PO Q12 [facility] Last Admin: 12/01/17 21:39 Dose: 20 gm Metoprolol Succinate (Toprol Xl) 50 mg PO DAILY [facility] Last Admin: 12/01/17 10:38 Dose: 50 mg Multivitamins (Hexavitamin) 1 tab PO DAILY [facility] Last Admin: 12/01/17 10:39 Dose: 1 tab Potassium Chloride (Klor-Con 10) 10 meq PO DAILY [facility] Last Admin: 12/01/17 10:39 Dose: 10 meq Rivaroxaban (Xarelto) 20 mg PO DAILY [facility] Last Admin: 12/01/17 10:43 Dose: 20 mg Saccharomyces Boulardii (Florastor) 250 mg PO BID [facility] Last Admin: 12/01/17 17:44 Dose: 250 mg Sitagliptin Phosphate (Januvia) 50 mg PO DAILY [facility] Last Admin: 12/01/17 10:38 Dose: 50 mg Sodium Hypochlorite (Dakins Solution 0.25%) 1 ml TOP DAILY [facility] Last Admin: 12/01/17 12:45 Dose: 1 applic Trazodone HCl (Desyrel) 50 mg PO [facility] Last Admin: 12/01/17 21:39 Dose: 50 mg - Labs Labs: 12/01/17 06:40 12/01/17 06:40 PT 16.5 SECONDS (9.7-12.2) H 11/28/17 16:52 INR 1.5 11/28/17 16:52 APTT 37 SECONDS (21-34) H 11/28/17 16:52 - Constitutional Appears: No Acute Distress, Chronically Ill - Head Exam Head Exam: ATRAUMATIC, NORMOCEPHALIC - Eye Exam Eye Exam: EOMI - ENT Exam ENT Exam: Mucous Membranes Moist - Neck Exam Additional comments: suture right side of neck from prior TLC removed without complication - Respiratory Exam Respiratory Exam: Clear to Ausculation Bilateral, NORMAL BREATHING PATTERN - Cardiovascular Exam Cardiovascular Exam: +S1, +S2 - GI/Abdominal Exam GI & Abdominal Exam: Soft, Normal Bowel Sounds. absent: Tenderness - Extremities Exam Additional comments: lower extremities with venous stasis color changes, clean gauze dressing bilaterally, heel protectors in place - Neurological Exam Neurological Exam: Alert, Awake - Skin Skin Exam: Warm Assessment and Plan - Assessment and Plan (Free Text) Assessment: Lower extremity wounds Patient's home diamond expert, Dr. Martinez, consulted- help appreciated - f/u reccs wound care nurse on board -f/u [facility] ID, Dr. Grimaldo, consulted- help appreciated continue cefepime and vancomycin per ID (pt has two more days of IV abx - last dose 12/03/17) - will switch to PO antibioitcs 12/04: cipro and keflex PO Q12 for 7 days Florastor 250mg PO BID Anemia Most likely chronic etiology Hgb stable 8.8 PMHx of Afib Xarelto 20mg POQD ASA 81mg PO QD CHF Lasix 40mg PO prior echo 07/2017, EF: 40-45% moderate diastolic dysfunction. Elevated left atrial pressure. Grade III restrictive diastolic dysfunction. RV systolic function is moderately reduced. Moderate tricupsid regurgitation. Trace pericardial effusion. HTN Well controlled metoprolol 50mg PO QD Imdur 60mg po daily CKD Renal function stable at this time Cr. 0.8 on AM labs - GFR as low as 32 on last admission - close monitoring as pt on Vanco DM Januvia 50mg PO QD accucheck Q6h ISS Hypoglycemia protocol Constipation Lactulose 20 gm PO Q12H Insomnia Trazadone 50mg PO HS Electrolyte abnormalities Will monitor and replete Prophylactic measures Pepcid Xarelto Florastor All management per Dr. Baer Patient is stable for discharge back to nursing facility per Dr. Baer. Patient is to continue IV antibiotics for one more day. She will need cefepime 1gam Q12h and vancomycin 1g Q24h to be continued for one more day, ending on 12/03. Patient to start Cipro 500mg PO Q12h for 7 days beginning on 12/04/17 and ending on 12/10/17. Patient to begin Keflex 500mg PO Q12h for 7 days beginning on 12/04/17 and ending on 12/10/17. Patient is to resume her other home medications. Patient is to follow up with her diamond expert, Dr. Martinez, upon discharge for further wound care. Patient is to return to the ED if symptoms reoccur or worsen.
--- NOTE | 2017-12-02 07:53 | HP ---
HISTORY OF PRESENT ILLNESS: Charisma Rossi is admitted to hospital, 87-year-old female with nonfunctioning central line. The patient [facility]. The patient pulled the central line out and was brought back to the emergency room for denying access line . PHYSICAL EXAMINATION: GENERAL: The patient is awake, alert, oriented. VITAL SIGNS: Temperature 98, pulse 90. HEENT: Within normal limits. NECK: Supple. CHEST: Symmetrical. ABDOMEN: Soft. EXTREMITIES: No edema. IMPRESSION: The patient is suffering from pneumonia. The patient was given IV antibiotics, had PICC placement. Duy Baer MD
[2017-12-02 08:10] VITALS: TEMP 97.7
[2017-12-02] MEDS: Multiple Vitamins Tab PO SCH (10:10)
[2017-12-02] MEDS: Saccharomyces Boulardi 250 mg Cap PO SCH ×2 (10:10→17:28)
[2017-12-02] MEDS: Metoprolol Succinate 50 mg XL Tab PO SCH (10:10)
[2017-12-02] MEDS: Potassium Chloride 10 mEq ER Tab PO SCH (10:10)
[2017-12-02] MEDS: Dakin's Topical 0.25%-Half Strength (480 ml) TOP SCH (10:11)
[2017-12-02] MEDS: Cefepime IV 1 gm in Dextrose 1 GM/50 ML BAG IVPB SCH (10:11)
--- NOTE | 2017-12-02 11:59 | CP.PCM.PN ---
Subjective - Date & Time of Evaluation Date of Evaluation: 12/02/17 Time of Evaluation: 08:00 - Subjective Subjective: improving slowly iv rx to be completed then switch to po Objective - Vital Signs/Intake and Output Vital Signs (last 24 hours): Temp Pulse Resp BP Pulse Ox 97.7 F 67 20 152/94 H 97 12/02/17 08:00 12/02/17 10:08 12/02/17 08:00 12/02/17 10:10 12/02/17 08:00 Intake and Output: 12/02/17 12/02/17 06:59 18:59 Intake Total 400 240 Balance 400 240 - Medications Medications: Current Medications Aspirin (Aspirin Chewable) 81 mg PO DAILY [facility] Last Admin: 12/02/17 10:10 Dose: 81 mg Dextrose (Dextrose 50% Inj) 0 ml IV STAT PRN; Protocol PRN Reason: Hypoglycemia Protocol Dextrose (Glutose 15) 15 gm PO ONCE PRN; Protocol PRN Reason: Hypoglycemia Protocol Furosemide (Lasix) 40 mg PO DAILY [facility] Last Admin: 12/02/17 10:10 Dose: 40 mg Glucagon (Glucagen Diagnostic Kit) 1 mg IM STAT PRN; Protocol PRN Reason: Hypoglycemia Protocol Cefepime HCl (Maxipime Iv 1 Gm Premix) 1 gm in 50 mls @ 100 mls/hr IVPB Q12 [facility] Last Admin: 12/02/17 10:11 Dose: 100 mls/hr Vancomycin/Sodium Chloride (Vancomycin 1 Gm/Ns 200 Ml) 1 gm in 200 mls @ 133.333 mls/hr IVPB Q24H [facility] PRN Reason: Protocol Stop: 12/06/17 10:01 Last Admin: 12/01/17 11:41 Dose: 133.333 mls/hr Dextrose (Dextrose 5% In Water 1000 Ml) 1,000 mls @ 0 mls/hr IV .Q0M PRN; Protocol; Per Protocol PRN Reason: Hypoglycemia Protocol Isosorbide Mononitrate (Imdur) 60 mg PO DAILY [facility] Last Admin: 12/02/17 10:10 Dose: 60 mg Lactulose (Enulose) 20 gm PO Q12 [facility] Last Admin: 12/02/17 10:09 Dose: 20 gm Metoprolol Succinate (Toprol Xl) 50 mg PO DAILY [facility] Last Admin: 12/02/17 10:10 Dose: 50 mg Multivitamins (Hexavitamin) 1 tab PO DAILY [facility] Last Admin: 12/02/17 10:10 Dose: 1 tab Potassium Chloride (Klor-Con 10) 10 meq PO DAILY [facility] Last Admin: 12/02/17 10:10 Dose: 10 meq Rivaroxaban (Xarelto) 20 mg PO DAILY [facility] Last Admin: 12/02/17 10:10 Dose: 20 mg Saccharomyces Boulardii (Florastor) 250 mg PO BID [facility] Last Admin: 12/02/17 10:10 Dose: 250 mg Sitagliptin Phosphate (Januvia) 50 mg PO DAILY [facility] Last Admin: 12/02/17 10:09 Dose: 50 mg Sodium Hypochlorite (Dakins Solution 0.25%) 1 ml TOP DAILY [facility] Last Admin: 12/02/17 10:11 Dose: 1 applic Trazodone HCl (Desyrel) 50 mg PO HS [facility] Last Admin: 12/01/17 21:39 Dose: 50 mg - Labs Labs: 12/01/17 06:40 12/01/17 06:40 PT 16.5 SECONDS (9.7-12.2) H 11/28/17 16:52 INR 1.5 11/28/17 16:52 APTT 37 SECONDS (21-34) H 11/28/17 16:52 - Constitutional Appears: Non-toxic, Chronically Ill - Head Exam Head Exam: NORMOCEPHALIC - Eye Exam Eye Exam: absent: Scleral icterus - ENT Exam ENT Exam: Mucous Membranes Dry - Neck Exam Neck Exam: absent: Lymphadenopathy - Respiratory Exam Respiratory Exam: Decreased Breath Sounds - Cardiovascular Exam Cardiovascular Exam: REGULAR RHYTHM - GI/Abdominal Exam GI & Abdominal Exam: Distended, Soft - Rectal Exam Rectal Exam: Deferred Assessment and Plan (1) Chronic osteomyelitis of foot Status: Acute (2) S/P PICC central line placement Status: Acute (3) Bronchitis Status: Active (4) Diabetes mellitus type 2 Status: Active (5) Dyslipidemia Status: Active (6) Ulcer of foot Status: Active (7) Weakness of limb Status: Active (8) Atrial fibrillation Status: Acute (9) CHF (congestive heart failure) Status: Acute (10) Cellulitis and abscess of foot Status: Acute (11) Hypothermia Status: Acute (12) Leg ulcer, left Status: Acute (13) Musculoskeletal pain Status: Acute (14) PAD (peripheral artery disease) Status: Acute
[2017-12-02] MEDS: Vancomycin 1 gm/NS 200 ml 1 GM/200 ML BAG IVPB SCH (12:04)
[2017-12-02 15:31] VITALS: BP 133/85; PULSE 80; O2SAT 100
--- NOTE | 2017-12-11 13:45 | CARD ---
APPROVED REPORT EKG Measurement Heart [id number] <Conclusion> Atrial fibrillation Possible Inferior infarct, age undetermined Cannot rule out Anterior infarct, age undetermined Abnormal ECG
--- NOTE | 2017-12-12 09:56 | DS ---
DATE: Ms. Rossi is admitted to the hospital with chief complaint of cellulitis of the leg and weakness. The patient came to the hospital. Started on IV antibiotics, supportive care, Podiatry evaluation, and the patient showed improvement, transferred to a rehab. DIAGNOSES: Cellulitis, altered mental status. Duy Baer MD
== END 2017-12-02 17:45 | DRG 314 ==
LOC: C.ER 15:38 → C.9E 17:44 → C.3T 18:21
PROVIDERS: ADMIT Internal Medicine Pulmonary Disease; ATTEND Internal Medicine Pulmonary Disease
DX: T82.514A Breakdown (mechanical) of infusion catheter, initial encounter (principal); J18.9 Pneumonia, unspecified organism; I50.33 Acute on chronic diastolic (congestive) heart failure; L03.115 Cellulitis of right lower limb; I13.0 Hypertensive heart and chronic kidney disease with heart failure and stage 1 through stage 4 chronic kidney disease, or unspecified chronic kidney disease; J44.0 Chronic obstructive pulmonary disease with (acute) lower respiratory infection; L02.619 Cutaneous abscess of unspecified foot; L97.819 Non-pressure chronic ulcer of other part of right lower leg with unspecified severity; M86.171 Other acute osteomyelitis, right ankle and foot; G30.9 Alzheimer's disease, unspecified; D64.9 Anemia, unspecified; E11.22 Type 2 diabetes mellitus with diabetic chronic kidney disease; E11.51 Type 2 diabetes mellitus with diabetic peripheral angiopathy without gangrene; E11.621 Type 2 diabetes mellitus with foot ulcer; E78.5 Hyperlipidemia, unspecified; F02.80 Dementia in other diseases classified elsewhere, unspecified severity, without behavioral disturbance, psychotic disturbance, mood disturbance, and anxiety; N18.9 Chronic kidney disease, unspecified; Z79.4 Long term (current) use of insulin; I48.91 Unspecified atrial fibrillation; E11.622 Type 2 diabetes mellitus with other skin ulcer; E11.69 Type 2 diabetes mellitus with other specified complication; K59.00 Constipation, unspecified; G47.00 Insomnia, unspecified; M79.1 Myalgia; Y82.8 Other medical devices associated with adverse incidents

== ENCOUNTER 2017-12-16 19:02 | Inpatient (IN) | payer MEDICARE, OTHER ==
[2017-12-16 19:02] VITALS: BMI 30.2
--- NOTE | 2017-12-16 20:41 | C.PDOC ---
History Of Present Illness 87 y/o female brought in by EMS from [facility] for failure to thrive. Patient has had prior evaluations in this ED for the same. Patient refuses to eat or take medications as per retirement staff. Of note patient was admitted in October of this year for pneumonia and chronic foot infections requiring IV antibiotics. Patient removed her central line and wanted to leave AMA but family insists on patient receiving care. Code status unknown. Time Seen by Provider: 12/16/17 20:02 Chief Complaint (Nursing): Lower Extremity Problem/Injury History Per: Patient History/Exam Limitations: no limitations Onset/Duration Of Symptoms: Days Current Symptoms Are (Timing): Still Present Past Medical History Reviewed: Historical Data, Nursing Documentation, Vital Signs Vital Signs: Last Vital Signs Temp 93.9 F L 12/16/17 22:56 Pulse 78 12/16/17 22:56 Resp 14 12/16/17 22:56 BP 160/100 H 12/16/17 22:56 Pulse Ox 96 12/16/17 21:26 - Medical History PMH: Alzheimer's Disease, Anxiety, Atrial Fibrillation, CHF, COPD, Dementia, Depression, Diabetes, HTN, Hypercholesterolemia, Peripheral Edema Denies: Chronic Kidney Disease Surgical History: - [facility] INJECT/INFUSE NEC (11/24/12) INSERTION OF INFUSION DEV INTO SUP VENA CAVA, PERC APPROACH (07/18/17) INSERTION OF INFUSION DEVICE INTO UPPER VEIN, PERC APPROACH (11/21/17) NONEXCIS DEBRID OF WOUND, INFECT, OR BURN (01/19/13) TRANSFUSE NONAUT RED BLOOD CELLS IN PERIPH VEIN, PERC (11/21/17) Family History: States: Unknown Family Hx - Social History Hx Tobacco Use: No Hx Alcohol Use: No Hx Substance Use: No (unknown) - Immunization History Hx Tetanus Toxoid Vaccination: No Hx Influenza Vaccination: No Hx Pneumococcal Vaccination: No Review Of Systems Except As Marked, All Systems Reviewed And Found Negative. Constitutional: Positive for: Other (refusing food and medications). Negative for: Fever Cardiovascular: Negative for: Chest Pain Respiratory: Negative for: Shortness of Breath Gastrointestinal: Negative for: Nausea, Vomiting Musculoskeletal: Positive for: Other (chronic foot ulcers) Neurological: Negative for: Headache, Dizziness Physical Exam - Physical Exam Appears: No Acute Distress, Other (Elderly black female, Obese) Skin: Warm, Dry, Other ((+) Anasarca) Head: Atraumatic, Normacephalic Eye(s): bilateral: Normal Inspection, PERRL, EOMI Nose: Normal Neck: Normal, Normal ROM Chest: Symmetrical Cardiovascular: Rhythm Regular, No Murmur Respiratory: Normal Breath Sounds, No Accessory Muscle Use Gastrointestinal/Abdominal: Soft, No Tenderness, No Distention Extremity: Bilateral: Atraumatic, Normal ROM, Other (Chronic heel ulcers to bilateral feet) Pulses: Left Dorsalis Pedis: Normal, Right Dorsalis Pedis: Normal Neurological/Psych: Normal Speech, Other (Alert and awake) ED Course And Treatment - Laboratory Results Result Diagrams: 12/16/17 21:33 12/16/17 21:33 Lab Interpretation: Abnormal (though K+ abnormal sample hemolyzed, and repeated multiple times, results pending @ 0040) ECG: Interpreted By Me ECG Rhythm: Sinus Rhythm ECG Interpretation: Normal O2 Sat by Pulse Oximetry: 96 (RA) Pulse Ox Interpretation: Normal - Radiology CXR: Interpreted by Me CXR Interpretation: Yes: No Acute Disease Progress Note: multiple failed attempts @ IV access with resultant hemolyzed samples. R EJ #[id number] placed by this MD with excellent flow- repeat labs sent @ 0040. 2030: d/w Dr. Vora- prior adm MD, ok to admit. Medical Decision Making Medical Decision Making: Time: 20:27 Initial Plan: * BNP * CMP * Troponin I * CBC * PTT * PT * Blood culture * Urinalysis * EKG * Chest x-ray anasarca, CHF, fluid overload pt pulls lines out, and has repeatedly voiced she wants no further treatment, lines, meds. Code Status unclear. Disposition Doctor Will See Patient In The: Hospital Counseled Patient/Family Regarding: Studies Performed, Diagnosis - Disposition Disposition: HOSPITALIZED Disposition Time: 00:43 Condition: FAIR Forms: [facility] ([place]) - Clinical Impression Clinical Impression: CHF (congestive heart failure), Anasarca - Scribe Statement The provider has reviewed the documentation as recorded by the Scribe (Zainab Alvarez) Provider Attestation: All medical record entries made by the Scribe were at my direction and personally dictated by me. I have reviewed the chart and agree that the record accurately reflects my personal performance of the history, physical exam, medical decision making, and the department course for this patient. I have also personally directed, reviewed, and agree with the discharge instructions and disposition.
[2017-12-16 21:42] LABS: BASO % 0.9 % (0.0-2.0); EOS % 0.2 % (0.0-4.0); HEMOGLOBIN 9.2 g/dL (11.0-16.0); LYMPH # 0.6 K/uL (1.0-4.3); LYMPH % 13.6 % (20.0-40.0); MEAN CELL VOLUME 77.2 fL (81.0-99.0); MEAN CORPUSCULAR HEMOGLOBIN 24.2 pg (27.0-31.0); MEAN CORPUSCULAR HGB CONC 31.3 g/dL (33.0-37.0); MEAN PLATELET VOLUME 9.1 fL (7.2-11.7); MONO # 0.7 K/uL (0.0-0.8); MONO % 15.5 % (0.0-10.0); NEUT % 69.8 % (50.0-75.0); NRBC % 4.1 % (0.0-2.0); RBC 3.8 Mil/uL (3.80-5.20); WHITE BLOOD COUNT 4.3 K/uL (4.8-10.8)
[2017-12-16 21:43] LABS: SQUAMOUS EPITHIAL < 1 /hpf (0-5); URINE BILIRUBIN NEGATIVE (NEGATIVE); URINE BLOOD NEGATIVE (NEGATIVE); URINE CLARITY Clear (Clear); URINE COLOR Yellow (YELLOW); URINE GLUCOSE (UA) NORMAL (Normal); URINE LEUKOCYTE ESTERASE NEG Leu/uL (Negative); URINE PROTEIN 2+ mg/dL (NEGATIVE)
[2017-12-16 21:47] LABS: INR 1.3; PROTHROMBIN TIME 14.9 SECONDS (9.7-12.2)
[2017-12-16 21:52] LABS: ALB/GLOB RATIO 0.8 (1.0-2.1); ALBUMIN 3.6 g/dL (3.5-5.0); CALCIUM 8.9 mg/dl (8.6-10.4)
[2017-12-16 22:27] LABS: TROPONIN I 0.013 ng/mL (0.00-0.120)
[2017-12-17 01:29] LABS: ALB/GLOB RATIO 0.8 (1.0-2.1); ALBUMIN 3.3 g/dL (3.5-5.0); CALCIUM 8.7 mg/dl (8.6-10.4)
--- NOTE | 2017-12-17 08:27 | RAD ---
PROCEDURE: CHEST RADIOGRAPH, 1 VIEW HISTORY: SOB COMPARISON: Chest radiograph dated 11/21/2017. FINDINGS: LUNGS: Clear. PLEURA: No pneumothorax or pleural fluid seen. CARDIOVASCULAR: Atherosclerotic aortic calcifications. Cardiomediastinal silhouette stably enlarged. OSSEOUS STRUCTURES: Unchanged. VISUALIZED UPPER ABDOMEN: Normal. OTHER FINDINGS: Right internal jugular access central venous catheter no longer present. Stable rightward deviation of the trachea. IMPRESSION: No active disease.
[2017-12-17] MEDS ORDERED: Calcium Gluconate 4.65 mEq/10 ml Inj IVP ONE (08:45)
[2017-12-17] MEDS ORDERED: Sod Polystyrene Sulf 15 gm/60 ml Susp PO ONE (08:47)
--- NOTE | 2017-12-17 08:50 | CP.PCM.PN ---
Subjective - Date & Time of Evaluation Date of Evaluation: 12/17/17 Time of Evaluation: 07:00 - Subjective Subjective: PGY 2 [address] note for Dr. Baer: Patient seen and examined at bedside this morning. Patient was agitated and screaming that she wanted to leave the hospital and that she wanted to see her son. ROS unobtainable. Objective - Vital Signs/Intake and Output Vital Signs (last 24 hours): Temp Pulse Resp BP Pulse Ox 96.7 F L 81 20 135/82 96 12/17/17 07:00 12/17/17 07:00 12/17/17 07:00 12/17/17 07:00 12/17/17 07:00 Intake and Output: 12/17/17 12/17/17 06:59 18:59 Output Total 950 Balance -950 - Medications Medications: Current Medications Pneumococcal Polyvalent Vaccine (Pneumovax 23 Vaccine) 0.5 ml IM .ONCE ONE Stop: 12/19/17 14:01 - Labs Labs: 12/16/17 21:33 12/17/17 00:53 PT 14.9 SECONDS (9.7-12.2) H 12/16/17 21:33 INR 1.3 12/16/17 21:33 APTT 37 SECONDS (21-34) H 12/16/17 21:33 - Constitutional Appears: Non-toxic, No Acute Distress, Chronically Ill - Head Exam Head Exam: NORMAL INSPECTION - Eye Exam Eye Exam: EOMI, PERRL Pupil Exam: NORMAL ACCOMODATION - Cardiovascular Exam Cardiovascular Exam: REGULAR RHYTHM - GI/Abdominal Exam GI & Abdominal Exam: Soft, Normal Bowel Sounds. absent: Distended, Firm, Guarding, Tenderness - Extremities Exam Additional comments: leg edema, b/l legs wrapped in bandages - Neurological Exam Neurological Exam: Alert, Awake. absent: Oriented x3 - Psychiatric Exam Psychiatric exam: Agitated, Anxious Additional comments: screaming - Skin Skin Exam: Normal Color Assessment and Plan - Assessment and Plan (Free Text) Assessment: Failure to thrive Patient is pulling out her lines and is refusing to eat or take medications. Patient was given one dose of Haldol 5mg IV for agitation. Upon reeval patient has been calm and comfortable. Vitals stable. Hyperkalemia K 5.8 calcium gluconate administered Albuterol treatment Kayexalate given will f/u K lab patient refusing medications MILEY Patient with history of CKD Cr elevated 1.5 GFR 33 Lower extremity wounds -f/u recs - Dr. Mack consulted, help appreciated Anemia Most likely chronic etiology Hgb stable 9.2 Was 8.8 on recent admission PMHx of Afib Xarelto 20mg POQD ASA 81mg PO QD CHF Lasix 40mg PO - will hold as of now due to MILEY prior echo 07/2017, EF: 40-45% moderate diastolic dysfunction. Elevated left atrial pressure. Grade III restrictive diastolic dysfunction. RV systolic function is moderately reduced. Moderate tricupsid regurgitation. Trace pericardial effusion. HTN Well controlled Metoprolol 50mg PO QD Imdur 60mg po daily DM Accuchecks ACHS ISS Hypoglycemia protocol Constipation Lactulose 20 gm PO Q12H prn constipation Insomnia Trazadone 50mg PO HS Electrolyte abnormalities Will monitor and replete Prophylactic measures Pepcid Xarelto Florastor Patient is refusing medications. All management per Dr. Baer
[2017-12-17] MEDS ORDERED: Sodium Chloride 0.9% 1,000 ML IV SCH (09:00)
[2017-12-17] MEDS ORDERED: Albuterol 0.083% Inhal Sol (2.5 mg/3 mL) UD INH ONE (09:15)
[2017-12-17] MEDS: Dextrose 5%/0.45% NS 1,000 ML IV SCH (11:35)
[2017-12-17] MEDS: Zinc Oxide Topical 30 gm Tube TOP SCH (11:35)
[2017-12-17] MEDS: Saccharomyces Boulardi 250 mg Cap PO SCH ×2 (11:36→18:45)
[2017-12-17] MEDS: Metoprolol Succinate 50 mg XL Tab PO SCH (11:39)
[2017-12-17] MEDS: Multiple Vitamins Tab PO SCH (11:39)
[2017-12-17 20:38] LABS: CALCIUM 8.8 mg/dl (8.6-10.4)
[2017-12-18] MEDS: Dextrose 5%/0.45% NS 1,000 ML IV SCH ×3 (01:00→15:43)
--- NOTE | 2017-12-18 07:31 | CP.PCM.PN ---
Subjective - Date & Time of Evaluation Date of Evaluation: 12/18/17 Time of Evaluation: 07:00 - Subjective Subjective: PGY 2 medicine progress note for Dr. Baer: Patient seen and examined at bedside this morning. ROS unobtainable. Patient was resting in bed comfortably. Per nursing patient has good urine output, no BM on this shift. Patient has no appetite and is still not eating. Objective - Vital Signs/Intake and Output Vital Signs (last 24 hours): Temp Pulse Resp BP Pulse Ox 97.0 F L 70 20 153/86 H 94 L 12/18/17 04:00 12/18/17 04:19 12/18/17 04:00 12/18/17 04:00 12/18/17 04:00 Intake and Output: 12/18/17 12/18/17 06:59 18:59 Intake Total 710 Output Total 450 Balance 260 - Medications Medications: Current Medications Amlodipine Besylate (Norvasc) 10 mg PO DAILY [facility] Last Admin: 12/17/17 18:45 Dose: 10 mg Aspirin (Aspirin Chewable) 81 mg PO DAILY [facility] Last Admin: 12/17/17 11:34 Dose: Not Given Famotidine (Pepcid) 20 mg PO DAILY [facility] Last Admin: 12/17/17 11:39 Dose: Not Given Dextrose/Sodium Chloride (Dextrose 5%/0.45% Ns 1000 Ml) 1,000 mls @ 70 mls/hr IV .[id number] [facility] Last Admin: 12/18/17 05:10 Dose: 70 mls/hr Isosorbide Mononitrate (Imdur) 60 mg PO DAILY [facility] Last Admin: 12/17/17 11:39 Dose: Not Given Lactulose (Enulose) 20 gm PO Q12 PRN PRN Reason: Constipation Last Admin: 12/17/17 18:51 Dose: 20 gm Metoprolol Succinate (Toprol Xl) 50 mg PO DAILY [facility] Last Admin: 12/17/17 11:39 Dose: Not Given Multivitamins (Hexavitamin) 1 tab PO DAILY [facility] Last Admin: 12/17/17 11:39 Dose: Not Given Petrolatum (Desitin Original) 0 gm TOP DAILY [facility] Last Admin: 12/17/17 11:35 Dose: Not Given Pneumococcal Polyvalent Vaccine (Pneumovax 23 Vaccine) 0.5 ml IM .ONCE ONE Stop: 12/19/17 14:01 Rivaroxaban (Xarelto) 20 mg PO DAILY [facility] Last Admin: 12/17/17 11:39 Dose: Not Given Saccharomyces Boulardii (Florastor) 250 mg PO BID [facility] Last Admin: 12/17/17 18:45 Dose: 250 mg Tramadol HCl (Ultram) 50 mg PO Q6 PRN PRN Reason: Pain, severe (8-10) Last Admin: 12/18/17 02:23 Dose: 50 mg Trazodone HCl (Desyrel) 50 mg PO HS [facility] Last Admin: 12/17/17 22:21 Dose: 50 mg - Labs Labs: 12/16/17 21:33 12/17/17 20:21 PT 14.9 SECONDS (9.7-12.2) H 12/16/17 21:33 INR 1.3 12/16/17 21:33 APTT 37 SECONDS (21-34) H 12/16/17 21:33 - Constitutional Appears: Non-toxic, No Acute Distress - Head Exam Head Exam: NORMAL INSPECTION - Eye Exam Eye Exam: EOMI Pupil Exam: NORMAL ACCOMODATION - ENT Exam ENT Exam: Mucous Membranes Moist - Respiratory Exam Respiratory Exam: Clear to Ausculation Bilateral, NORMAL BREATHING PATTERN. absent: Respiratory Distress - Cardiovascular Exam Cardiovascular Exam: REGULAR RHYTHM - GI/Abdominal Exam GI & Abdominal Exam: Soft, Normal Bowel Sounds. absent: Distended, Firm, Guarding, Tenderness - Extremities Exam Extremities Exam: Normal Inspection, Pedal Edema Additional comments: leg edema, b/l legs wrapped in bandages - Back Exam Back Exam: absent: NORMAL INSPECTION - Neurological Exam Neurological Exam: Alert, Awake. absent: Oriented x3 - Skin Skin Exam: Dry, Normal Color Assessment and Plan - Assessment and Plan (Free Text) Assessment: Failure to thrive Patient is refusing take medications. Patient is not eating Hyperkalemia K 4.7 Resolved calcium gluconate administered Albuterol treatment Kayexalate given will f/u K lab patient refusing medications MILEY Patient with history of CKD Cr elevated 1.5 GFR 33 Lower extremity wounds -f/u recs - Dr. Mack consulted, help appreciated Anemia Most likely chronic etiology Patient is recieveing fluid for MILEY Will monitor for signs of bleeding (check stools etc) Hgb 7.6 PMHx of Afib Xarelto 15mg PO daily - will lower dose for tomorrow due to renal function ASA 81mg PO QD CHF Lasix 40mg PO - will hold as of now due to MILEY prior echo 07/2017, EF: 40-45% moderate diastolic dysfunction. Elevated left atrial pressure. Grade III restrictive diastolic dysfunction. RV systolic function is moderately reduced. Moderate tricupsid regurgitation. Trace pericardial effusion. HTN Metoprolol 50mg PO QD Imdur 60mg po daily DM Accuchecks ACHS ISS Hypoglycemia protocol Constipation Lactulose 20 gm PO Q12H prn constipation Insomnia Trazadone 50mg PO HS Electrolyte abnormalities Will monitor and replete Prophylactic measures Pepcid Xarelto Florastor Patient is refusing medications. All management per Dr. Baer
[2017-12-18] MEDS: Saccharomyces Boulardi 250 mg Cap PO SCH ×2 (09:28→17:24)
[2017-12-18] MEDS: Metoprolol Succinate 50 mg XL Tab PO SCH (09:28)
[2017-12-18] MEDS: Multiple Vitamins Tab PO SCH (09:28)
[2017-12-18] MEDS: Zinc Oxide Topical 30 gm Tube TOP SCH (09:29)
[2017-12-18] MEDS ORDERED: Labetalol 25mg/5ml Syringe IVP ONE (10:45)
[2017-12-18 12:23] LABS: BASO % 1.1 % (0.0-2.0); EOS # 0.1 K/uL (0.0-0.7); EOS % 1.9 % (0.0-4.0); HEMOGLOBIN 7.6 g/dL (11.0-16.0); LYMPH # 0.4 K/uL (1.0-4.3); LYMPH % 10.8 % (20.0-40.0); MEAN CELL VOLUME 75.5 fL (81.0-99.0); MEAN CORPUSCULAR HGB CONC 30.5 g/dL (33.0-37.0); MEAN PLATELET VOLUME 8.5 fL (7.2-11.7); MONO # 0.6 K/uL (0.0-0.8); MONO % 16.4 % (0.0-10.0); NEUT # 2.7 K/uL (1.8-7.0); NEUT % 69.8 % (50.0-75.0); NRBC % 3.8 % (0.0-2.0); RBC 3.3 Mil/uL (3.80-5.20); RED CELL DISTRIBUTION WIDTH 23.4 % (11.5-14.5); WHITE BLOOD COUNT 3.8 K/uL (4.8-10.8)
[2017-12-18 12:26] LABS: ALB/GLOB RATIO 0.7 (1.0-2.1); ALBUMIN 2.9 g/dL (3.5-5.0); CALCIUM 8.3 mg/dl (8.6-10.4)
--- NOTE | 2017-12-18 14:58 | CP.PCM.CON ---
History of Present Illness - History of Present Illness History of Present Illness: Podiatry Consult Note- Dr. Mack. 87 y/o female, well know to podiatry service & her blowing weasand Dr. Mack. Seen concerning chronic, recurrant diabetic foot ulcers to bilateral lower legs. Pt was recently discharged to [facility] where she was followed by Dr. Mcak earlier this week. Pt is seen resting comfortably in bed at time of visit, with daugther present at the bedside. Pt denies any pain or discomfort to the B/L lower extremities at this time. Reports knee pain on maniputation of lower legs. Denies f/n/v/c/sob/cp/weakness or dizziness at this time. PMHx: Afib, HTN, COPD, T2DM, hyperlipidemia, CHF, PVD, depression, and chronic non-healing ulcers Past Patient History - Infectious Disease Hx of Infectious Diseases: None - Tetanus Immunizations Tetanus Immunization: Unknown - Past Medical History & Family History Past Medical History?: Yes - Past Social History Smoking Status: Former Smoker - CARDIAC Hx Cardiac Disorders: Yes Hx Atrial Fibrillation: Yes Hx Congestive Heart Failure: Yes Hx Hypercholesterolemia: Yes Hx Hypertension: Yes Hx Peripheral Edema: Yes - PULMONARY Hx Respiratory Disorders: Yes Hx Chronic Obstructive Pulmonary Disease (COPD): Yes - NEUROLOGICAL Hx Neurological Disorder: Yes Hx Alzheimer's Disease: Yes Hx Dementia: Yes - HEENT Hx HEENT Problems: No - RENAL Hx Chronic Kidney Disease: No - ENDOCRINE/METABOLIC Hx Endocrine Disorders: Yes Hx Diabetes Mellitus Type 2: Yes - HEMATOLOGICAL/ONCOLOGICAL Hx Blood Disorders: No Hx Blood Transfusions: No Hx Blood Transfusion Reaction: No - INTEGUMENTARY Hx Dermatological Problems: Yes Other/Comment: Hx Diabetic foot ulcer and non healing wound - MUSCULOSKELETAL/RHEUMATOLOGICAL Hx Falls: No - GASTROINTESTINAL Hx Gastrointestinal Disorders: No - GENITOURINARY/GYNECOLOGICAL Hx Genitourinary Disorders: Yes Hx Urinary Tract Infection: Yes - PSYCHIATRIC Hx Substance Use: No - SURGICAL HISTORY Hx Surgeries: Yes Hx Section: Yes (x2) - ANESTHESIA Hx Anesthesia: Yes Hx Anesthesia Reactions: No Hx Malignant Hyperthermia: No Has any member of the family had a problem w/ anesthesia?: No Meds Allergies/Adverse Reactions: Allergies Allergy/AdvReac Type Severity Reaction Status Date / Time ertapenem sodium Allergy RASH Verified 12/16/17 19:48 [From Invanz] - Medications Medications: Current Medications Amlodipine Besylate (Norvasc) 10 mg PO DAILY [facility] Last Admin: 12/18/17 09:28 Dose: 10 mg Aspirin (Aspirin Chewable) 81 mg PO DAILY [facility] Last Admin: 12/18/17 09:29 Dose: 81 mg Famotidine (Pepcid) 20 mg PO DAILY [facility] Last Admin: 12/18/17 09:28 Dose: 20 mg Dextrose/Sodium Chloride (Dextrose 5%/0.45% Ns 1000 Ml) 1,000 mls @ 70 mls/hr IV .[id number] [facility] Last Admin: 12/18/17 05:10 Dose: 70 mls/hr Isosorbide Mononitrate (Imdur) 60 mg PO DAILY [facility] Last Admin: 12/18/17 09:28 Dose: 60 mg Lactulose (Enulose) 20 gm PO Q12 PRN PRN Reason: Constipation Last Admin: 12/17/17 18:51 Dose: 20 gm Metoprolol Succinate (Toprol Xl) 50 mg PO DAILY [facility] Last Admin: 12/18/17 09:28 Dose: 50 mg Multivitamins (Hexavitamin) 1 tab PO DAILY [facility] Last Admin: 12/18/17 09:28 Dose: 1 tab Petrolatum (Desitin Original) 0 gm TOP DAILY [facility] Last Admin: 12/18/17 09:29 Dose: 1 applic Pneumococcal Polyvalent Vaccine (Pneumovax 23 Vaccine) 0.5 ml IM .ONCE ONE Stop: 12/19/17 14:01 Rivaroxaban (Xarelto) 15 mg PO DAILY [facility] Saccharomyces Boulardii (Florastor) 250 mg PO BID [facility] Last Admin: 12/18/17 09:28 Dose: 250 mg Sodium Hypochlorite (Dakins Solution 0.125%) 1 appl TOP BID [facility] Tramadol HCl (Ultram) 50 mg PO Q6 PRN PRN Reason: Pain, severe (8-10) Last Admin: 12/18/17 02:23 Dose: 50 mg Trazodone HCl (Desyrel) 50 mg PO HS [facility] Last Admin: 12/17/17 22:21 Dose: 50 mg Physical Exam - Constitutional Appears: Non-toxic, No Acute Distress, Chronically Ill - Extremities Exam Additional comments: Bilateral lower extremity exam. Dressings are clean, dry, and intact. VASC- Non palpable DP/PT pulses b/l, TG wnl, CF T< 3 sec to all digits, minimal pedal edema, edemaconcentrated proximal to knee joints bilaterally. Neuro: grossly diminished b/l. No clonus bilaterally. DERM: No erythema noted. Mild xerosis to anterior legs noted. Right lower extremity: open superficial ulcerations on the medial malleolus measuring 1.7x 2.5x 0.2 with fibrotic base, no active drainage, no malodor, 2 superficial ulcerations on the anterior leg measuring 0.5 cm x 1cm x 0.5cm each with granular base and fibrotic border with mild serous drainage, no purulence, no ascending cellulitis Left lower extremity: superficial ulceration on anterior leg measuring 0.8cm x 1.4cm x 0.3 cm with granular base and fibrotic border with no serous drainage , no fluctuance, no ascending cellulitis, no malodor ortho: no pain on palpation of bilateral lower extremities. Limitation to bilateral ankle joint ROM. Manual muscle testing to lower leg and pedal muscle groups graded 4/5. - Neurological Exam Neurological exam: Alert, Oriented x3 Results - Vital Signs Recent Vital Signs: Last Vital Signs Temp 98.4 F 12/18/17 08:07 Pulse 62 12/18/17 12:00 Resp 18 12/18/17 08:07 BP 154/103 H 12/18/17 08:07 Pulse Ox 94 L 12/18/17 08:07 - Labs Result Diagrams: 12/18/17 11:41 12/18/17 11:41 Labs: Laboratory Results - last 24 hr 12/17/17 12/17/17 12/17/17 16:51 20:21 20:44 WBC RBC Hgb Hct MCV MCH MCHC RDW Plt Count MPV Neut % (Auto) Lymph % (Auto) [place] % (Auto) Eos % (Auto) Baso % (Auto) Neut # (Auto) Lymph # (Auto) [place] # (Auto) Eos # (Auto) Baso # (Auto) Sodium 146 Potassium 5.1 Chloride 108 H Carbon Dioxide 25 Anion Gap 18 BUN 31 H Creatinine 1.5 H Est GFR ( Amer) 40 Est GFR (Non-Af Amer) 33 POC Glucose (mg/dL) 124 H 147 H Random Glucose 218 H Calcium 8.8 Phosphorus Magnesium Total Bilirubin AST ALT Alkaline Phosphatase Total Protein Albumin Globulin Albumin/Globulin Ratio 12/18/17 12/18/17 12/18/17 06:40 11:20 11:41 WBC 3.8 L RBC 3.30 L Hgb 7.6 L Hct 24.9 L MCV 75.5 L MCH 23.0 L MCHC 30.5 L RDW 23.4 H Plt Count 195 MPV 8.5 Neut % (Auto) 69.8 Lymph % (Auto) 10.8 L [place] % (Auto) 16.4 H Eos % (Auto) 1.9 Baso % (Auto) 1.1 Neut # (Auto) 2.7 Lymph # (Auto) 0.4 L [place] # (Auto) 0.6 Eos # (Auto) 0.1 Baso # (Auto) 0.0 Sodium Potassium Chloride Carbon Dioxide Anion Gap BUN Creatinine Est GFR ( Amer) Est GFR (Non-Af Amer) POC Glucose (mg/dL) 158 H 158 H Random Glucose Calcium Phosphorus Magnesium Total Bilirubin AST ALT Alkaline Phosphatase Total Protein Albumin Globulin Albumin/Globulin Ratio 12/18/17 11:41 WBC RBC Hgb Hct MCV MCH MCHC RDW Plt Count MPV Neut % (Auto) Lymph % (Auto) [place] % (Auto) Eos % (Auto) Baso % (Auto) Neut # (Auto) Lymph # (Auto) [place] # (Auto) Eos # (Auto) Baso # (Auto) Sodium 145 Potassium 4.7 Chloride 110 H Carbon Dioxide 24 Anion Gap 16 BUN 29 H Creatinine 1.5 H Est GFR ( Amer) 40 Est GFR (Non-Af Amer) 33 POC Glucose (mg/dL) Random Glucose 150 H Calcium 8.3 L Phosphorus 4.2 Magnesium 1.9 Total Bilirubin 0.9 AST 32 ALT 28 Alkaline Phosphatase 123 Total Protein 7.0 Albumin 2.9 L Globulin 4.1 H Albumin/Globulin Ratio 0.7 L Assessment & Plan - Assessment and Plan (Free Text) Assessment: 87 y/o with bilateral superficial chronic, non-healing ulcerations to lower extremities secondary to diabetes and PVD Plan: Patient seen and evaluated with attending, Dr. Mack. chart, labs and vitals reviewed. Reapplied xeroform, DSD to b/l LE c/w multipodus boots b/l at all times while in bed, ordered upon admission. Order for q12 dressing change with 1/4% dakin's solution and wet-to-dry hydrogen peroxide dressing with DSD. stable per podiatry, will follow while inhouse. - Date & Time Date: 12/18/17 Time: 09:20
--- NOTE | 2017-12-18 17:28 | CON ---
DATE: 12/18/2017 Consultation at the request of Dr. Baer. PRIMARY DIAGNOSIS: Chronic ulcerations and of bilateral lower extremities. This is an 87-year-old black female well known to me for prior Unna boot therapy with resolution of bilateral ankylosis. At this time, due to the fact that she had removed her Unna boots and failed to continue with her diuresis, these ulcers have reappeared. However, she is refusing Unna boot therapy, so we will institute Dakin's solution, 0.25 strength wet-to-dry every 12 hours. No operative intervention required at this time. Nicholas Hathaway DPM
[2017-12-18 21:46] LABS: MEAN PLATELET VOLUME 9.1 fL (7.2-11.7); WHITE BLOOD COUNT 4.5 K/uL (4.8-10.8)
[2017-12-18 21:51] LABS: HEMOGLOBIN 7.9 g/dL (11.0-16.0); MEAN CELL VOLUME 76.3 fL (81.0-99.0); MEAN CORPUSCULAR HEMOGLOBIN 23.2 pg (27.0-31.0); MEAN CORPUSCULAR HGB CONC 30.4 g/dL (33.0-37.0); RBC 3.42 Mil/uL (3.80-5.20); RED CELL DISTRIBUTION WIDTH 23.5 % (11.5-14.5)
[2017-12-18 22:02] LABS: ALB/GLOB RATIO 0.7 (1.0-2.1); CALCIUM 8.5 mg/dl (8.6-10.4)
[2017-12-18 22:12] LABS: EOS # 0.1 K/uL (0.0-0.7); LYMPH # 0.8 K/uL (1.0-4.3); MONO # 0.5 K/uL (0.0-0.8)
[2017-12-19 08:21] LABS: BASO % 0.7 % (0.0-2.0); EOS # 0.1 K/uL (0.0-0.7); EOS % 2.9 % (0.0-4.0); LYMPH # 0.4 K/uL (1.0-4.3); LYMPH % 7.4 % (20.0-40.0); MEAN CELL VOLUME 75.8 fL (81.0-99.0); MEAN CORPUSCULAR HEMOGLOBIN 23.4 pg (27.0-31.0); MEAN CORPUSCULAR HGB CONC 30.8 g/dL (33.0-37.0); MEAN PLATELET VOLUME 8.9 fL (7.2-11.7); MONO # 0.7 K/uL (0.0-0.8); MONO % 14.3 % (0.0-10.0); NEUT # 3.7 K/uL (1.8-7.0); NEUT % 74.7 % (50.0-75.0); PLATELET COUNT 189 K/uL (130-400); RBC 3.43 Mil/uL (3.80-5.20); RED CELL DISTRIBUTION WIDTH 23.6 % (11.5-14.5); WHITE BLOOD COUNT 4.9 K/uL (4.8-10.8)
[2017-12-19 08:32] LABS: ALB/GLOB RATIO 0.7 (1.0-2.1); CALCIUM 8.5 mg/dl (8.6-10.4)
[2017-12-19 08:52] LABS: BASOPHIL 1 % (0-2); LYMPHOCYTE 11 % (20-40); MONOCYTE 12 % (0-10); NEUTROPHIL 76 % (50-75); PLATELET ESTIMATE NORMAL (NORMAL); TOTAL CELLS COUNTED 100
[2017-12-19 08:53] LABS: ANISOCYTOSIS SLIGHT; HYPOCHROMIC SLIGHT; MICROCYTOSIS SLIGHT; OVALOCYTES SLIGHT; POIKILOCYTOSIS SLIGHT; TARGET CELLS SLIGHT
[2017-12-19 08:54] LABS: TEARDROP CELLS SLIGHT
[2017-12-19] MEDS: Multiple Vitamins Tab PO SCH (09:12)
[2017-12-19] MEDS: Saccharomyces Boulardi 250 mg Cap PO SCH ×2 (09:12→18:49)
[2017-12-19] MEDS: Metoprolol Succinate 50 mg XL Tab PO SCH (09:12)
[2017-12-19] MEDS: Zinc Oxide Topical 30 gm Tube TOP SCH (09:13)
--- NOTE | 2017-12-19 09:33 | CP.PCM.PN ---
Subjective - Date & Time of Evaluation Date of Evaluation: 12/19/17 Time of Evaluation: 10:18 - Subjective Subjective: PGY 2 Med Progress Note- Dr. Baer's service Patient seen and examined in no apparent acute distress. Patient did not seem to recall the day that she was admitted to the hospital. Per nursing, patient had a rash under her breasts bilaterally, as well as some facial discoloration. A review of systems was addressed, to which the patient denied any pertinent positives. Objective - Vital Signs/Intake and Output Vital Signs (last 24 hours): Temp Pulse Resp BP Pulse Ox 98.4 F 65 20 141/100 H 98 12/18/17 23:25 12/19/17 08:00 12/19/17 08:00 12/19/17 08:00 12/19/17 08:00 Intake and Output: 12/19/17 12/19/17 06:59 18:59 Output Total 400 Balance -400 - Medications Medications: Current Medications Amlodipine Besylate (Norvasc) 10 mg PO DAILY [facility] Last Admin: 12/19/17 09:12 Dose: 10 mg Aspirin (Aspirin Chewable) 81 mg PO DAILY [facility] Last Admin: 12/19/17 09:12 Dose: 81 mg Famotidine (Pepcid) 20 mg PO DAILY [facility] Last Admin: 12/19/17 09:12 Dose: 20 mg Dextrose/Sodium Chloride (Dextrose 5%/0.45% Ns 1000 Ml) 1,000 mls @ 70 mls/hr IV .[id number] [facility] Last Admin: 12/18/17 15:43 Dose: Not Given Isosorbide Mononitrate (Imdur) 60 mg PO DAILY [facility] Last Admin: 12/19/17 09:12 Dose: 60 mg Lactulose (Enulose) 20 gm PO Q12 PRN PRN Reason: Constipation Last Admin: 12/17/17 18:51 Dose: 20 gm Metoprolol Succinate (Toprol Xl) 50 mg PO DAILY [facility] Last Admin: 12/19/17 09:12 Dose: 50 mg Multivitamins (Hexavitamin) 1 tab PO DAILY [facility] Last Admin: 12/19/17 09:12 Dose: 1 tab Petrolatum (Desitin Original) 0 gm TOP DAILY [facility] Last Admin: 12/19/17 09:13 Dose: Not Given Pneumococcal Polyvalent Vaccine (Pneumovax 23 Vaccine) 0.5 ml IM .ONCE ONE Stop: 12/19/17 14:01 Rivaroxaban (Xarelto) 15 mg PO DAILY [facility] Last Admin: 12/19/17 09:12 Dose: 15 mg Saccharomyces Boulardii (Florastor) 250 mg PO BID [facility] Last Admin: 12/19/17 09:12 Dose: 250 mg Sodium Hypochlorite (Dakins Solution 0.125%) 1 appl TOP BID [facility] Last Admin: 12/19/17 09:13 Dose: Not Given Tramadol HCl (Ultram) 50 mg PO Q6 PRN PRN Reason: Pain, severe (8-10) Last Admin: 12/18/17 02:23 Dose: 50 mg Trazodone HCl (Desyrel) 50 mg PO HS [facility] Last Admin: 12/18/17 22:36 Dose: 50 mg - Labs Labs: 12/19/17 08:12 12/19/17 08:12 PT 14.9 SECONDS (9.7-12.2) H 12/16/17 21:33 INR 1.3 12/16/17 21:33 APTT 37 SECONDS (21-34) H 12/16/17 21:33 - Constitutional Appears: Non-toxic, No Acute Distress - Head Exam Head Exam: ATRAUMATIC - Eye Exam Eye Exam: EOMI Pupil Exam: NORMAL ACCOMODATION - ENT Exam ENT Exam: Mucous Membranes Moist - Neck Exam Neck Exam: Full ROM - Respiratory Exam Respiratory Exam: NORMAL BREATHING PATTERN - Cardiovascular Exam Cardiovascular Exam: +S1, +S2 - GI/Abdominal Exam GI & Abdominal Exam: Soft, Normal Bowel Sounds - Extremities Exam Extremities Exam: Full ROM Additional comments: dressings noted bilaterally c/d/i - Back Exam Back Exam: Full ROM - Neurological Exam Neurological Exam: Awake - Psychiatric Exam Psychiatric exam: Flat Affect - Skin Skin Exam: Dry, Warm Additional comments: darkened skin around around the eyes- this may be a normal variant. melasma- like Assessment and Plan - Assessment and Plan (Free Text) Assessment: Failure to thrive Patient is refusing take medications. Patient is not eating Hyperkalemia Resolved Monitor closely Patient refusing medications at times MILEY Patient with history of CKD Cr elevated GFR 33 Fluids at 70 mls/hr Lower extremity wounds - Dr. Mack consulted- F/U recommendations Anemia Most likely chronic etiology Hgb Stable Will monitor for signs of bleeding PMHx of Afib Xarelto 15mg PO daily ASA 81mg PO QD CHF Lasix 40mg PO - will hold as of now due to MILEY prior echo 07/2017, EF: 40-45% moderate diastolic dysfunction. Elevated left atrial pressure. Grade III restrictive diastolic dysfunction. RV systolic function is moderately reduced. Moderate tricuspid regurgitation. Trace pericardial effusion. Refer to complete report. HTN Metoprolol 50mg PO QD Imdur 60mg po daily DM Accuchecks ACHS ISS Hypoglycemia protocol Constipation Lactulose 20 gm PO Q12H prn constipation Insomnia Trazodone 50mg PO HS Electrolyte abnormalities Will monitor and replete Rash Under the breasts- fungal in nature- apply nystatin petroleum jelly/ aquaphor for the face Monitor Prophylactic measures Pepcid Xarelto Florastor Discussed with attending. All management per Dr. Baer
[2017-12-19] MEDS ORDERED: Pneumococcal 23-Valent Vaccine IM ONE (14:00)
[2017-12-19] MEDS: Nystatin 100,000 Units/gm Topical Pow(15 gm) TOP SCH (18:49)
[2017-12-19] MEDS: Dextrose 5%/0.45% NS 1,000 ML IV SCH (21:09)
[2017-12-20] MEDS: Dextrose 5%/0.45% NS 1,000 ML IV SCH ×2 (04:20→18:17)
[2017-12-20] MEDS: Metoprolol Succinate 50 mg XL Tab PO SCH (09:18)
[2017-12-20] MEDS: Zinc Oxide Topical 30 gm Tube TOP SCH (09:18)
[2017-12-20] MEDS: Multiple Vitamins Tab PO SCH (09:18)
[2017-12-20] MEDS: Saccharomyces Boulardi 250 mg Cap PO SCH ×2 (09:18→18:14)
[2017-12-20] MEDS: Nystatin 100,000 Units/gm Topical Pow(15 gm) TOP SCH ×2 (09:19→18:22)
[2017-12-20] MEDS: POLYETHYLENE GLYCOL 3350 17 GM/Dose PACKET PO SCH (16:39)
[2017-12-21] MEDS: Metoprolol Succinate 50 mg XL Tab PO SCH (10:20)
[2017-12-21] MEDS: Multiple Vitamins Tab PO SCH (10:20)
[2017-12-21] MEDS: Nystatin 100,000 Units/gm Topical Pow(15 gm) TOP SCH ×2 (10:21→18:55)
[2017-12-21] MEDS: Saccharomyces Boulardi 250 mg Cap PO SCH ×2 (10:22→18:55)
[2017-12-21] MEDS: Zinc Oxide Topical 30 gm Tube TOP SCH (10:22)
[2017-12-21] MEDS: POLYETHYLENE GLYCOL 3350 17 GM/Dose PACKET PO SCH (10:42)
--- NOTE | 2017-12-21 15:26 | CP.PCM.PN ---
Subjective - Date & Time of Evaluation Date of Evaluation: 12/21/17 Time of Evaluation: 15:23 - Subjective Subjective: Podiatry note for Dr. Mack 87 year old female seen at bedside for multiple, b/l, superficial leg blisters. Patient is AAO x 3 and NAD resting comfortably in bed. Patient states that pain is well controlled. She denies any acute overnight events or any further pedal complaints at this time. Denies any recent N/V/F/C/CP/SOB/D/posterior calf pain when squeezed Objective - Vital Signs/Intake and Output Vital Signs (last 24 hours): Temp Pulse Resp BP Pulse Ox 97.9 F 60 20 123/81 100 12/21/17 08:49 12/21/17 10:00 12/21/17 08:49 12/21/17 10:21 12/21/17 08:49 Intake and Output: 12/21/17 12/21/17 06:59 18:59 Intake Total 560 1040 Output Total 375 Balance 185 1040 - Medications Medications: Current Medications Amlodipine Besylate (Norvasc) 10 mg PO DAILY [facility] Last Admin: 12/21/17 10:21 Dose: 10 mg Aspirin (Aspirin Chewable) 81 mg PO DAILY [facility] Last Admin: 12/21/17 10:19 Dose: 81 mg Famotidine (Pepcid) 20 mg PO DAILY [facility] Last Admin: 12/21/17 10:20 Dose: 20 mg Furosemide (Lasix) 20 mg IVP DAILY [facility] Last Admin: 12/21/17 10:21 Dose: 20 mg Isosorbide Mononitrate (Imdur) 60 mg PO DAILY [facility] Last Admin: 12/21/17 10:22 Dose: 60 mg Lactulose (Enulose) 20 gm PO Q12 PRN PRN Reason: Constipation Last Admin: 12/20/17 09:18 Dose: 20 gm Metoprolol Succinate (Toprol Xl) 50 mg PO DAILY [facility] Last Admin: 12/21/17 10:20 Dose: 50 mg Multivitamins (Hexavitamin) 1 tab PO DAILY [facility] Last Admin: 12/21/17 10:20 Dose: 1 tab Nystatin (Nystop Topical Powder) 0 gm TOP BID [facility] Last Admin: 12/21/17 10:21 Dose: 1 dose Petrolatum (Desitin Original) 0 gm TOP DAILY [facility] Last Admin: 12/21/17 10:22 Dose: 1 applic Polyethylene Glycol (Miralax) 17 gm PO DAILY [facility] Last Admin: 12/21/17 10:42 Dose: 17 gm Rivaroxaban (Xarelto) 15 mg PO DAILY [facility] Last Admin: 12/21/17 10:20 Dose: 15 mg Saccharomyces Boulardii (Florastor) 250 mg PO BID [facility] Last Admin: 12/21/17 10:22 Dose: 250 mg Sodium Hypochlorite (Dakins Solution 0.125%) 1 appl TOP BID [facility] Last Admin: 12/21/17 10:22 Dose: 1 appl Tramadol HCl (Ultram) 50 mg PO Q6 PRN PRN Reason: Pain, severe (8-10) Last Admin: 12/21/17 02:44 Dose: 50 mg Trazodone HCl (Desyrel) 50 mg PO HS [facility] Last Admin: 12/20/17 22:23 Dose: Not Given - Labs Labs: 12/19/17 08:12 12/19/17 08:12 PT 14.9 SECONDS (9.7-12.2) H 12/16/17 21:33 INR 1.3 12/16/17 21:33 APTT 37 SECONDS (21-34) H 12/16/17 21:33 - Constitutional Appears: Well, Non-toxic, No Acute Distress - Extremities Exam Additional comments: Bilateral lower extremity exam. Dressings are clean, dry, and intact. VASC- Non palpable DP/PT pulses b/l, TG wnl, CF T< 3 sec to all digits, minimal pedal edema, edemaconcentrated proximal to knee joints bilaterally. Neuro: grossly diminished b/l. No clonus bilaterally. DERM: No erythema noted. Mild xerosis to anterior legs noted. Right lower extremity: open superficial ulcerations on the medial malleolus measuring 1.7x 2.5x 0.2 with fibrotic base, no active drainage, no malodor, 2 superficial ulcerations on the anterior leg measuring 0.5 cm x 1cm x 0.5cm each with granular base and fibrotic border with mild serous drainage, no purulence, no ascending cellulitis Left lower extremity: superficial ulceration on anterior leg measuring 0.8cm x 1.4cm x 0.3 cm with granular base and fibrotic border with no serous drainage , no fluctuance, no ascending cellulitis, no malodor ortho: no pain on palpation of bilateral lower extremities. Limitation to bilateral ankle joint ROM. Manual muscle testing to lower leg and pedal muscle groups graded 4/5. - Neurological Exam Neurological Exam: Alert, Awake, Oriented x3 - Psychiatric Exam Psychiatric exam: Normal Affect, Normal Mood Assessment and Plan - Assessment and Plan (Free Text) Assessment: 87 year old female seen at bedside for multiple, b/l, superficial leg blisters Plan: Patient seen and evaluated at bedside Plan discussed with attending Dr. Mack Charts, labs, vitals reviewed COntinue medical management per Medical team Wounds dressed with 1/4 strength Daikins solution, hydrogen peroxide, telfa and DSD Podiatry will continue to follow while patient in house Upon discharge, patient to follow up with Dr. Mack
[2017-12-22 08:10] LABS: ALB/GLOB RATIO 0.7 (1.0-2.1); ALBUMIN 3.1 g/dL (3.5-5.0); CALCIUM 8.5 mg/dl (8.6-10.4)
[2017-12-22 08:22] LABS: BASO % 0.3 % (0.0-2.0); EOS # 0.1 K/uL (0.0-0.7); EOS % 1.5 % (0.0-4.0); HEMOGLOBIN 7.5 g/dL (11.0-16.0); LYMPH # 0.3 K/uL (1.0-4.3); LYMPH % 6.9 % (20.0-40.0); MEAN CELL VOLUME 74.2 fL (81.0-99.0); MEAN CORPUSCULAR HEMOGLOBIN 23.1 pg (27.0-31.0); MEAN CORPUSCULAR HGB CONC 31.1 g/dL (33.0-37.0); MONO % 19.5 % (0.0-10.0); NEUT # 3.5 K/uL (1.8-7.0); NEUT % 71.8 % (50.0-75.0); NRBC % 4.1 % (0.0-2.0); PLATELET COUNT 168 K/uL (130-400); RBC 3.26 Mil/uL (3.80-5.20); RED CELL DISTRIBUTION WIDTH 23.9 % (11.5-14.5); WHITE BLOOD COUNT 4.9 K/uL (4.8-10.8)
--- NOTE | 2017-12-22 08:55 | PN ---
DATE: 12/20/2017 SUBJECTIVE: The patient is awake, afebrile, weak, appetite marginal. Edema noted in the lower extremities. We will start Lasix 20 mg IV push. Encourage oral intake. Duy Baer MD
--- NOTE | 2017-12-22 08:58 | PN ---
DATE: patient permission , continue current medication. Follow her at rehab, repeat blood work. Duy Baer MD
[2017-12-22 09:22] LABS: LYMPHOCYTE 6 % (20-40); MONOCYTE 9 % (0-10); NEUTROPHIL 85 % (50-75); TOTAL CELLS COUNTED 100
[2017-12-22 09:25] LABS: PLATELET ESTIMATE NORMAL (NORMAL)
[2017-12-22 09:26] LABS: ANISOCYTOSIS MODERATE
[2017-12-22 09:27] LABS: HYPOCHROMIC MODERATE; MICROCYTOSIS SLIGHT; OVALOCYTES SLIGHT; POLYCHROMIC SLIGHT
[2017-12-22 09:28] LABS: SCHISTOCYTES SLIGHT; TARGET CELLS MODERATE
[2017-12-22 09:31] LABS: POIKILOCYTOSIS SLIGHT
[2017-12-22] MEDS: Nystatin 100,000 Units/gm Topical Pow(15 gm) TOP SCH ×2 (10:02→18:05)
[2017-12-22] MEDS: Multiple Vitamins Tab PO SCH (10:02)
[2017-12-22] MEDS: Saccharomyces Boulardi 250 mg Cap PO SCH ×2 (10:02→18:05)
[2017-12-22] MEDS: Metoprolol Succinate 50 mg XL Tab PO SCH (10:02)
[2017-12-22] MEDS: POLYETHYLENE GLYCOL 3350 17 GM/Dose PACKET PO SCH (10:03)
[2017-12-22] MEDS: Zinc Oxide Topical 30 gm Tube TOP SCH (10:03)
--- NOTE | 2017-12-22 10:06 | CP.PCM.PN ---
Subjective - Date & Time of Evaluation Date of Evaluation: 12/22/17 Time of Evaluation: 09:23 - Subjective Subjective: PGY 2 Medicine Progress Note- Dr. Baer's service Patient seen and examined in no acute distress. Patient did not seem to be aware of who was speaking to her. Questionable review of systems at this time due to mentation. Objective - Vital Signs/Intake and Output Vital Signs (last 24 hours): Temp Pulse Resp BP Pulse Ox 97.2 F L 63 20 132/87 98 12/22/17 07:50 12/22/17 07:50 12/22/17 07:50 12/22/17 07:50 12/22/17 07:50 Intake and Output: 12/22/17 12/22/17 06:59 18:59 Intake Total 1340 Output Total 600 Balance 740 - Medications Medications: Current Medications Amlodipine Besylate (Norvasc) 10 mg PO DAILY [facility] Last Admin: 12/21/17 10:21 Dose: 10 mg Aspirin (Aspirin Chewable) 81 mg PO DAILY [facility] Last Admin: 12/21/17 10:19 Dose: 81 mg Famotidine (Pepcid) 20 mg PO DAILY [facility] Last Admin: 12/21/17 10:20 Dose: 20 mg Furosemide (Lasix) 20 mg IVP DAILY [facility] Last Admin: 12/21/17 10:21 Dose: 20 mg Isosorbide Mononitrate (Imdur) 60 mg PO DAILY [facility] Last Admin: 12/21/17 10:22 Dose: 60 mg Lactulose (Enulose) 20 gm PO Q12 PRN PRN Reason: Constipation Last Admin: 12/20/17 09:18 Dose: 20 gm Metoprolol Succinate (Toprol Xl) 50 mg PO DAILY [facility] Last Admin: 12/21/17 10:20 Dose: 50 mg Multivitamins (Hexavitamin) 1 tab PO DAILY [facility] Last Admin: 12/21/17 10:20 Dose: 1 tab Nystatin (Nystop Topical Powder) 0 gm TOP BID [facility] Last Admin: 12/21/17 18:55 Dose: 1 dose Petrolatum (Desitin Original) 0 gm TOP DAILY [facility] Last Admin: 12/21/17 10:22 Dose: 1 applic Polyethylene Glycol (Miralax) 17 gm PO DAILY [facility] Last Admin: 12/21/17 10:42 Dose: 17 gm Rivaroxaban (Xarelto) 15 mg PO DAILY [facility] Last Admin: 12/21/17 10:20 Dose: 15 mg Saccharomyces Boulardii (Florastor) 250 mg PO BID [facility] Last Admin: 12/21/17 18:55 Dose: Not Given Sodium Hypochlorite (Dakins Solution 0.125%) 1 appl TOP BID [facility] Last Admin: 12/21/17 18:55 Dose: 1 appl Tramadol HCl (Ultram) 50 mg PO Q6 PRN PRN Reason: Pain, severe (8-10) Last Admin: 12/21/17 02:44 Dose: 50 mg Trazodone HCl (Desyrel) 50 mg PO HS [facility] Last Admin: 12/21/17 21:29 Dose: Not Given - Labs Labs: 12/22/17 07:17 12/22/17 07:17 PT 14.9 SECONDS (9.7-12.2) H 12/16/17 21:33 INR 1.3 12/16/17 21:33 APTT 37 SECONDS (21-34) H 12/16/17 21:33 - Constitutional Appears: Non-toxic, No Acute Distress - Head Exam Head Exam: ATRAUMATIC - Eye Exam Eye Exam: EOMI, Normal appearance Pupil Exam: NORMAL ACCOMODATION - ENT Exam ENT Exam: Mucous Membranes Moist - Respiratory Exam Respiratory Exam: NORMAL BREATHING PATTERN - Extremities Exam Extremities Exam: Pedal Edema (up to knees bilaterally) Additional comments: offloading pressure boots noted on lower extremity - Back Exam Back Exam: Full ROM - Neurological Exam Neurological Exam: Alert, Awake, Oriented x3 - Psychiatric Exam Psychiatric exam: Normal Affect, Normal Mood - Skin Skin Exam: Dry, Normal Color, Warm Assessment and Plan - Assessment and Plan (Free Text) Assessment: Failure to thrive Patient is refusing take medications at times Patient is not eating Will initiate megace Need to speak with family members regarding patient's baseline Nutrition consult Anemia Most likely chronic etiology Hgb Stable Will monitor for signs of bleeding CHF Lasix 40mg PO - will hold as of now due to MILEY prior echo 07/2017, EF: 40-45% moderate diastolic dysfunction. Elevated left atrial pressure. Grade III restrictive diastolic dysfunction. RV systolic function is moderately reduced. Moderate tricuspid regurgitation. Trace pericardial effusion. Refer to complete report. MILEY Patient with history of CKD Cr trending downwards Fluids at 70 mls/hr PMHx of Afib Xarelto 15mg PO daily ASA 81mg PO QD Lower extremity wounds Diffuser Operator-Dr. Mack consulted- F/U recommendations HTN Metoprolol 50mg PO QD Imdur 60mg po daily DM Accuchecks ACHS ISS Hypoglycemia protocol Hyperkalemia Resolved Monitor closely Constipation Lactulose 20 gm PO Q12H prn constipation Insomnia Trazodone 50mg PO HS Electrolyte abnormalities Will monitor and replete Rash Under the breasts- fungal in nature- apply nystatin petroleum jelly/ aquaphor for the face Monitor Prophylactic measures Pepcid Xarelto Florastor Discussed with attending. All management per Dr. Baer
[2017-12-23 08:09] LABS: BASO # 0.1 K/uL (0.0-0.2); BASO % 1.3 % (0.0-2.0); EOS # 0.1 K/uL (0.0-0.7); EOS % 1.4 % (0.0-4.0); HEMOGLOBIN 7.2 g/dL (11.0-16.0); LYMPH # 0.6 K/uL (1.0-4.3); LYMPH % 11.9 % (20.0-40.0); MEAN CELL VOLUME 74.4 fL (81.0-99.0); MEAN CORPUSCULAR HEMOGLOBIN 23.3 pg (27.0-31.0); MEAN CORPUSCULAR HGB CONC 31.3 g/dL (33.0-37.0); MEAN PLATELET VOLUME 9.2 fL (7.2-11.7); MONO # 0.9 K/uL (0.0-0.8); MONO % 18.1 % (0.0-10.0); NEUT # 3.5 K/uL (1.8-7.0); NEUT % 67.3 % (50.0-75.0); NRBC % 3.1 % (0.0-2.0); RBC 3.1 Mil/uL (3.80-5.20); RED CELL DISTRIBUTION WIDTH 24.5 % (11.5-14.5); WHITE BLOOD COUNT 5.2 K/uL (4.8-10.8)
[2017-12-23 08:25] LABS: CALCIUM 8.6 mg/dl (8.6-10.4)
--- NOTE | 2017-12-23 08:46 | CP.PCM.PN ---
Subjective - Date & Time of Evaluation Date of Evaluation: 12/23/17 Time of Evaluation: 07:55 - Subjective Subjective: PGY 2 Medicine Note- Dr. Baer's service Patient seen and examined in no apparent acute distress. Patient sleeping bedside. Patient has still not been eating. Patient is not clearly responding to a review of systems. Objective - Vital Signs/Intake and Output Vital Signs (last 24 hours): Temp Pulse Resp BP Pulse Ox 96.9 F L 80 20 122/79 96 12/23/17 07:00 12/23/17 07:00 12/23/17 07:00 12/23/17 07:00 12/23/17 07:00 Intake and Output: 12/23/17 12/23/17 06:59 18:59 Output Total 350 Balance -350 - Medications Medications: Current Medications Amlodipine Besylate (Norvasc) 10 mg PO DAILY [facility] Last Admin: 12/22/17 10:02 Dose: 10 mg Aspirin (Aspirin Chewable) 81 mg PO DAILY [facility] Last Admin: 12/22/17 10:02 Dose: 81 mg Famotidine (Pepcid) 20 mg PO DAILY [facility] Last Admin: 12/22/17 10:02 Dose: 20 mg Furosemide (Lasix) 20 mg IVP DAILY [facility] Last Admin: 12/22/17 10:03 Dose: 20 mg Isosorbide Mononitrate (Imdur) 60 mg PO DAILY [facility] Last Admin: 12/22/17 10:01 Dose: 60 mg Lactulose (Enulose) 20 gm PO Q12 PRN PRN Reason: Constipation Last Admin: 12/20/17 09:18 Dose: 20 gm Metoprolol Succinate (Toprol Xl) 50 mg PO DAILY [facility] Last Admin: 12/22/17 10:02 Dose: 50 mg Multivitamins (Hexavitamin) 1 tab PO DAILY [facility] Last Admin: 12/22/17 10:02 Dose: 1 tab Nystatin (Nystop Topical Powder) 0 gm TOP BID [facility] Last Admin: 12/22/17 18:05 Dose: 1 dose Petrolatum (Desitin Original) 0 gm TOP DAILY [facility] Last Admin: 12/22/17 10:03 Dose: 1 applic Polyethylene Glycol (Miralax) 17 gm PO DAILY [facility] Last Admin: 12/22/17 10:03 Dose: 17 gm Rivaroxaban (Xarelto) 15 mg PO DAILY [facility] Last Admin: 12/22/17 10:05 Dose: 15 mg Saccharomyces Boulardii (Florastor) 250 mg PO BID [facility] Last Admin: 12/22/17 18:05 Dose: 250 mg Sodium Hypochlorite (Dakins Solution 0.125%) 1 appl TOP BID [facility] Last Admin: 12/22/17 18:05 Dose: 1 appl Tramadol HCl (Ultram) 50 mg PO Q6 PRN PRN Reason: Pain, severe (8-10) Last Admin: 12/21/17 02:44 Dose: 50 mg Trazodone HCl (Desyrel) 50 mg PO HS [facility] Last Admin: 12/22/17 21:22 Dose: Not Given - Labs Labs: 12/23/17 08:01 12/23/17 08:01 PT 14.9 SECONDS (9.7-12.2) H 12/16/17 21:33 INR 1.3 12/16/17 21:33 APTT 37 SECONDS (21-34) H 12/16/17 21:33 - Constitutional Appears: Non-toxic, No Acute Distress - Head Exam Head Exam: ATRAUMATIC, NORMAL INSPECTION - Eye Exam Eye Exam: EOMI, Normal appearance, PERRL Pupil Exam: NORMAL ACCOMODATION - ENT Exam ENT Exam: Mucous Membranes Moist - Respiratory Exam Respiratory Exam: NORMAL BREATHING PATTERN - Cardiovascular Exam Cardiovascular Exam: +S1, +S2 - GI/Abdominal Exam GI & Abdominal Exam: Soft, Normal Bowel Sounds. absent: Tenderness - Extremities Exam Additional comments: offloading pressure boots noted - Neurological Exam Neurological Exam: Alert, Awake - Psychiatric Exam Psychiatric exam: Normal Affect, Normal Mood - Skin Skin Exam: Normal Color Assessment and Plan - Assessment and Plan (Free Text) Assessment: Failure to thrive Patient is refusing take medications at times Patient is not eating Will initiate megace. May need to decide PPN therapy vs PEG tube placement. Will need to speak with family member. Need to speak with family members regarding patient's baseline Nutrition consult Anemia Patient may need a transfusion; however having a difficult time getting ahold of family members to obtain consent. Hgb Stable Will monitor for signs of bleeding CHF Lasix 40mg PO - will hold as of now due to MILEY prior echo 07/2017, EF: 40-45% moderate diastolic dysfunction. Elevated left atrial pressure. Grade III restrictive diastolic dysfunction. RV systolic function is moderately reduced. Moderate tricuspid regurgitation. Trace pericardial effusion. Refer to complete report. MILEY Patient with history of CKD Cr trending downwards Fluids at 70 mls/hr PMHx of Afib Xarelto 15mg PO daily ASA 81mg PO QD Lower extremity wounds Information Security Officer-Dr. Mack consulted- F/U recommendations HTN Metoprolol 50mg PO QD Imdur 60mg po daily DM Accuchecks ACHS ISS Hypoglycemia protocol Hyperkalemia Resolved Monitor closely Constipation Lactulose 20 gm PO Q12H prn constipation Insomnia Trazodone 50mg PO HS Electrolyte abnormalities Will monitor and replete Rash Under the breasts- fungal in nature- apply nystatin petroleum jelly/ aquaphor for the face Monitor Prophylactic measures Pepcid Xarelto Florastor Dispo- Need to get ahold of daughter. There is a Irais Rossi in the chart who engineering technical writer attempted calling. Was not able to get through to anyone. Will call again. If not, will have to make a decision about feeding measures. Discussed with attending. All management per Dr. Baer
[2017-12-23] MEDS: Saccharomyces Boulardi 250 mg Cap PO SCH ×2 (11:33→17:55)
[2017-12-23] MEDS: Multiple Vitamins Tab PO SCH (11:34)
[2017-12-23] MEDS: Nystatin 100,000 Units/gm Topical Pow(15 gm) TOP SCH ×2 (11:35→18:32)
[2017-12-23] MEDS: POLYETHYLENE GLYCOL 3350 17 GM/Dose PACKET PO SCH (11:35)
[2017-12-23] MEDS: Metoprolol Succinate 50 mg XL Tab PO SCH ×3 (11:36→16:36)
[2017-12-23] MEDS: Zinc Oxide Topical 30 gm Tube TOP SCH (12:44)
[2017-12-24 07:07] LABS: HEMOGLOBIN 7.5 g/dL (11.0-16.0); MEAN CELL VOLUME 74.8 fL (81.0-99.0); MEAN CORPUSCULAR HGB CONC 30.8 g/dL (33.0-37.0); MEAN PLATELET VOLUME 8.8 fL (7.2-11.7); RBC 3.26 Mil/uL (3.80-5.20); RED CELL DISTRIBUTION WIDTH 24.5 % (11.5-14.5); WHITE BLOOD COUNT 4.5 K/uL (4.8-10.8)
[2017-12-24 07:28] LABS: CALCIUM 8.6 mg/dl (8.6-10.4)
[2017-12-24] MEDS: POLYETHYLENE GLYCOL 3350 17 GM/Dose PACKET PO SCH (10:45)
[2017-12-24] MEDS: Saccharomyces Boulardi 250 mg Cap PO SCH ×2 (10:45→18:50)
[2017-12-24] MEDS: Multiple Vitamins Tab PO SCH (10:45)
[2017-12-24] MEDS: Metoprolol Succinate 50 mg XL Tab PO SCH (10:46)
--- NOTE | 2017-12-24 11:17 | CP.PCM.PN ---
Subjective - Date & Time of Evaluation Date of Evaluation: 12/24/17 Time of Evaluation: 11:15 - Subjective Subjective: PGY2 progress note for Dr. Baer Pt seen and examined at bedside. No acute events overnight. Pt is stating that she would like to leave the hospital. Does not want to answer any questions. Pt still has decreased appetite and only ate a small amount of her breakfast Objective - Vital Signs/Intake and Output Vital Signs (last 24 hours): Temp Pulse Resp BP Pulse Ox 97.7 F 71 20 139/77 100 12/24/17 08:17 12/24/17 08:17 12/24/17 08:17 12/24/17 10:43 12/24/17 08:17 Intake and Output: 12/24/17 12/24/17 06:59 18:59 Output Total 750 Balance -750 - Medications Medications: Current Medications Amlodipine Besylate (Norvasc) 10 mg PO DAILY [facility] Last Admin: 12/24/17 10:46 Dose: Not Given Aspirin (Aspirin Chewable) 81 mg PO DAILY [facility] Last Admin: 12/24/17 10:45 Dose: Not Given Famotidine (Pepcid) 20 mg PO DAILY [facility] Last Admin: 12/24/17 10:46 Dose: Not Given Furosemide (Lasix) 20 mg IVP DAILY [facility] Last Admin: 12/24/17 10:43 Dose: 20 mg Isosorbide Mononitrate (Imdur) 60 mg PO DAILY [facility] Last Admin: 12/24/17 10:45 Dose: Not Given Lactulose (Enulose) 20 gm PO Q12 PRN PRN Reason: Constipation Last Admin: 12/20/17 09:18 Dose: 20 gm Metoprolol Succinate (Toprol Xl) 50 mg PO DAILY [facility] Last Admin: 12/24/17 10:46 Dose: Not Given Multivitamins (Hexavitamin) 1 tab PO DAILY [facility] Last Admin: 12/24/17 10:45 Dose: Not Given Nystatin (Nystop Topical Powder) 0 gm TOP BID [facility] Last Admin: 12/23/17 18:32 Dose: 1 dose Petrolatum (Desitin Original) 0 gm TOP DAILY [facility] Last Admin: 12/23/17 12:44 Dose: 1 applic Polyethylene Glycol (Miralax) 17 gm PO DAILY [facility] Last Admin: 12/24/17 10:45 Dose: Not Given Rivaroxaban (Xarelto) 15 mg PO DAILY [facility] Last Admin: 12/24/17 10:46 Dose: Not Given Saccharomyces Boulardii (Florastor) 250 mg PO BID [facility] Last Admin: 12/24/17 10:45 Dose: Not Given Sodium Hypochlorite (Dakins Solution 0.125%) 1 appl TOP BID [facility] Last Admin: 12/24/17 10:45 Dose: 1 appl Tramadol HCl (Ultram) 50 mg PO Q6 PRN PRN Reason: Pain, severe (8-10) Last Admin: 12/21/17 02:44 Dose: 50 mg Trazodone HCl (Desyrel) 50 mg PO HS [facility] Last Admin: 12/23/17 21:32 Dose: Not Given - Labs Labs: 12/24/17 06:58 12/24/17 06:58 PT 14.9 SECONDS (9.7-12.2) H 12/16/17 21:33 INR 1.3 12/16/17 21:33 APTT 37 SECONDS (21-34) H 12/16/17 21:33 - Constitutional Appears: Non-toxic, No Acute Distress - Head Exam Head Exam: ATRAUMATIC - ENT Exam ENT Exam: Mucous Membranes Moist - Respiratory Exam Respiratory Exam: Clear to Ausculation Bilateral. absent: Accessory Muscle Use , Rales, Rhonchi, Wheezes, Respiratory Distress - Cardiovascular Exam Cardiovascular Exam: +S1, +S2. absent: Gallop, REGULAR RHYTHM, Rubs, Murmur - GI/Abdominal Exam GI & Abdominal Exam: Soft, Normal Bowel Sounds. absent: Distended, Firm, Guarding, Rigid, Tenderness, Organomegaly - Extremities Exam Extremities Exam: absent: Pedal Edema, Tenderness - Neurological Exam Neurological Exam: Alert, Awake - Psychiatric Exam Psychiatric exam: Normal Affect, Normal Mood - Skin Skin Exam: Dry, Intact, Normal Color, Warm Assessment and Plan - Assessment and Plan (Free Text) Assessment: Failure to thrive Patient is refusing to take po medications at times Patient is not eating Continue Megace 400 mg po qd. May need to decide PPN therapy vs PEG tube placement. Will need to speak with family member. Need to speak with family members regarding patient's baseline Nutrition consult Anemia Patient may need a transfusion; however having a difficult time getting ahold of family members to obtain consent. Hgb Stable Will monitor for signs of bleeding CHF Lasix 20mg PO - will hold as of now due to MILEY prior echo 07/2017, EF: 40-45% moderate diastolic dysfunction. Elevated left atrial pressure. Grade III restrictive diastolic dysfunction. RV systolic function is moderately reduced. Moderate tricuspid regurgitation. Trace pericardial effusion. Refer to complete report. MILEY Patient with history of CKD Cr trending downwards Fluids at 70 mls/hr PMHx of Afib Xarelto 15mg PO daily ASA 81mg PO QD Toprol XL 50 mg po qd Lower extremity wounds Boiler Engineer-Dr. Mack consulted- F/U recommendations HTN Metoprolol 50mg PO QD Imdur 60mg po daily DM Accuchecks ACHS ISS Hypoglycemia protocol Hyperkalemia Resolved Monitor closely Constipation Lactulose 20 gm PO Q12H prn constipation Insomnia Trazodone 50mg PO HS Electrolyte abnormalities Will monitor and replete Rash Under the breasts- fungal in nature- apply nystatin petroleum jelly/ aquaphor for the face Monitor Prophylactic measures Pepcid Xarelto Florastor Dispo- Need to get ahold of daughter. There is a Irais Rossi in the chart who health underwriter attempted calling. Was not able to get through to anyone. Will call again. If not, will have to make a decision about feeding measures. Discussed with attending. All management per Dr. Baer
[2017-12-24] MEDS ORDERED: Megestrol Acetate 40 mg/ml Cup PO SCH (11:30)
[2017-12-24 13:16] LABS: EOS # 0.1 K/uL (0.0-0.7); LYMPH # 0.8 K/uL (1.0-4.3); MONO # 0.6 K/uL (0.0-0.8)
[2017-12-24 13:17] LABS: BASO # 0.1 K/uL (0.0-0.2)
--- NOTE | 2017-12-24 18:23 | CP.PCM.PN ---
Subjective - Date & Time of Evaluation Date of Evaluation: 12/24/17 Time of Evaluation: 11:00 - Subjective Subjective: Podiatry note for Dr. Mack 87 year old female seen at bedside for multiple bilateral superficial leg ulcers. Patient appears stronger and is nore verbal upon this visit. She is resting comfortably in bed. Patient states that pain is well controlled. She denies any acute overnight events or any further pedal complaints at this time. Denies any recent N/V/F/C/CP/SOB/D/posterior calf pain when squeezed Objective - Vital Signs/Intake and Output Vital Signs (last 24 hours): Temp Pulse Resp BP Pulse Ox 97.7 F 72 20 139/77 100 12/24/17 08:17 12/24/17 16:06 12/24/17 08:17 12/24/17 10:43 12/24/17 08:17 Intake and Output: 12/24/17 12/24/17 06:59 18:59 Output Total 750 Balance -750 - Medications Medications: Current Medications Amlodipine Besylate (Norvasc) 10 mg PO DAILY [facility] Last Admin: 12/24/17 10:46 Dose: Not Given Aspirin (Aspirin Chewable) 81 mg PO DAILY [facility] Last Admin: 12/24/17 10:45 Dose: Not Given Famotidine (Pepcid) 20 mg PO DAILY [facility] Last Admin: 12/24/17 10:46 Dose: Not Given Furosemide (Lasix) 20 mg IVP DAILY [facility] Last Admin: 12/24/17 10:43 Dose: 20 mg Isosorbide Mononitrate (Imdur) 60 mg PO DAILY [facility] Last Admin: 12/24/17 10:45 Dose: Not Given Lactulose (Enulose) 20 gm PO Q12 PRN PRN Reason: Constipation Last Admin: 12/20/17 09:18 Dose: 20 gm Megestrol Acetate (Megace) 400 mg PO DAILY [facility] Metoprolol Succinate (Toprol Xl) 50 mg PO DAILY [facility] Last Admin: 12/24/17 10:46 Dose: Not Given Multivitamins (Hexavitamin) 1 tab PO DAILY [facility] Last Admin: 12/24/17 10:45 Dose: Not Given Nystatin (Nystop Topical Powder) 0 gm TOP BID [facility] Last Admin: 12/23/17 18:32 Dose: 1 dose Petrolatum (Desitin Original) 0 gm TOP DAILY [facility] Last Admin: 12/23/17 12:44 Dose: 1 applic Polyethylene Glycol (Miralax) 17 gm PO DAILY [facility] Last Admin: 12/24/17 10:45 Dose: Not Given Rivaroxaban (Xarelto) 15 mg PO DAILY [facility] Last Admin: 12/24/17 10:46 Dose: Not Given Saccharomyces Boulardii (Florastor) 250 mg PO BID [facility] Last Admin: 12/24/17 10:45 Dose: Not Given Sodium Hypochlorite (Dakins Solution 0.125%) 1 appl TOP BID [facility] Last Admin: 12/24/17 10:45 Dose: 1 appl Tramadol HCl (Ultram) 50 mg PO Q6 PRN PRN Reason: Pain, severe (8-10) Last Admin: 12/21/17 02:44 Dose: 50 mg Trazodone HCl (Desyrel) 50 mg PO HS [facility] Last Admin: 12/23/17 21:32 Dose: Not Given - Labs Labs: 12/24/17 06:58 12/24/17 06:58 PT 14.9 SECONDS (9.7-12.2) H 12/16/17 21:33 INR 1.3 12/16/17 21:33 APTT 37 SECONDS (21-34) H 12/16/17 21:33 - Constitutional Appears: Well, Non-toxic, No Acute Distress - Extremities Exam Additional comments: Bilateral lower extremity exam. Dressings are clean, dry, and intact. VASC- Non palpable DP/PT pulses b/l, TG wnl, CF T< 3 sec to all digits, minimal pedal edema, edemaconcentrated proximal to knee joints bilaterally. Neuro: grossly diminished b/l. No clonus bilaterally. DERM: No erythema noted. Mild xerosis to anterior legs noted. Right lower extremity: open superficial ulcerations on the medial malleolus measuring 1.7x 2.5x 0.2 with fibrotic base, no active drainage, no malodor, 2 superficial ulcerations on the anterior leg measuring 0.5 cm x 1cm x 0.5cm each with granular base and fibrotic border with mild serous drainage, no purulence, no ascending cellulitis Left lower extremity: superficial ulceration on anterior leg measuring 0.8cm x 1.4cm x 0.3 cm with granular base and fibrotic border with no serous drainage , no fluctuance, no ascending cellulitis, no malodor ortho: no pain on palpation of bilateral lower extremities. Limitation to bilateral ankle joint ROM. Manual muscle testing to lower leg and pedal muscle groups graded 4/5. - Neurological Exam Neurological Exam: Alert, Awake Assessment and Plan - Assessment and Plan (Free Text) Assessment: 87 year old female with multiple, bilateral, superficial leg ulcers Plan: Patient seen and evaluated at bedside Plan discussed with attending Dr. Mack Charts, labs, vitals reviewed Continue medical management per Medical team Wounds dressed with 1/4 strength Daikins solution, hydrogen peroxide, telfa and DSD Podiatry will continue to follow while patient in house Pt is stable from podiatry standpoint for discharge. Upon discharge, patient to follow up with Dr. Mack
[2017-12-24] MEDS: Nystatin 100,000 Units/gm Topical Pow(15 gm) TOP SCH (18:50)
[2017-12-25 00:52] VITALS: PULSE 79
--- NOTE | 2017-12-25 07:29 | CP.PCM.PN ---
Subjective - Date & Time of Evaluation Date of Evaluation: 12/25/17 Time of Evaluation: 07:26 - Subjective Subjective: PGY2 progress note for Dr. Baer Pt seen and examined at bedside. Nursing reports no acute events overnight. Pt only oriented to self on examination which is patients baseline. Patient reportedly not eating. Nursing/CP reports patient eating 5-10% of meals, and drinking "1/2 - 2/3" ensure/glucerna twice daily. Daughter is at bedside who is POA. Had long conversation regarding patient nutrition/care goals. Daughter repeatedly refused TPN or PEG at this time saying "she will encourage her mother to eat more." Daughter refuses blood transfusion at this time as well. Palliative consult ordered to define further care goals, reinforce need for further nutrition. Objective - Vital Signs/Intake and Output Vital Signs (last 24 hours): Temp Pulse Resp BP Pulse Ox 96.8 F L 79 20 150/93 H 97 12/24/17 23:40 12/24/17 23:40 12/24/17 23:40 12/24/17 23:40 12/24/17 23:40 Intake and Output: 12/25/17 12/25/17 06:59 18:59 Output Total 950 Balance -950 - Medications Medications: Current Medications Amlodipine Besylate (Norvasc) 10 mg PO DAILY [facility] Last Admin: 12/24/17 10:46 Dose: Not Given Aspirin (Aspirin Chewable) 81 mg PO DAILY [facility] Last Admin: 12/24/17 10:45 Dose: Not Given Famotidine (Pepcid) 20 mg PO DAILY [facility] Last Admin: 12/24/17 10:46 Dose: Not Given Furosemide (Lasix) 20 mg IVP DAILY [facility] Last Admin: 12/24/17 10:43 Dose: 20 mg Isosorbide Mononitrate (Imdur) 60 mg PO DAILY [facility] Last Admin: 12/24/17 10:45 Dose: Not Given Lactulose (Enulose) 20 gm PO Q12 PRN PRN Reason: Constipation Last Admin: 12/20/17 09:18 Dose: 20 gm Megestrol Acetate (Megace) 400 mg PO DAILY [facility] Metoprolol Succinate (Toprol Xl) 50 mg PO DAILY [facility] Last Admin: 12/24/17 10:46 Dose: Not Given Multivitamins (Hexavitamin) 1 tab PO DAILY [facility] Last Admin: 12/24/17 10:45 Dose: Not Given Nystatin (Nystop Topical Powder) 0 gm TOP BID [facility] Last Admin: 12/24/17 18:50 Dose: 1 dose Petrolatum (Desitin Original) 0 gm TOP DAILY [facility] Last Admin: 12/23/17 12:44 Dose: 1 applic Polyethylene Glycol (Miralax) 17 gm PO DAILY [facility] Last Admin: 12/24/17 10:45 Dose: Not Given Rivaroxaban (Xarelto) 15 mg PO DAILY [facility] Last Admin: 12/24/17 10:46 Dose: Not Given Saccharomyces Boulardii (Florastor) 250 mg PO BID [facility] Last Admin: 12/24/17 18:50 Dose: Not Given Sodium Hypochlorite (Dakins Solution 0.125%) 1 appl TOP BID [facility] Last Admin: 12/24/17 18:49 Dose: 1 appl Tramadol HCl (Ultram) 50 mg PO Q6 PRN PRN Reason: Pain, severe (8-10) Last Admin: 12/21/17 02:44 Dose: 50 mg Trazodone HCl (Desyrel) 50 mg PO HS [facility] Last Admin: 12/24/17 21:16 Dose: Not Given - Labs Labs: 12/24/17 06:58 12/24/17 06:58 PT 14.9 SECONDS (9.7-12.2) H 12/16/17 21:33 INR 1.3 12/16/17 21:33 APTT 37 SECONDS (21-34) H 12/16/17 21:33 - Additional Findings Additional findings: - Constitutional Appears: Non-toxic, No Acute Distress - Head Exam Head Exam: ATRAUMATIC - ENT Exam ENT Exam: Mucous Membranes Moist - Respiratory Exam Respiratory Exam: Clear to Ausculation Bilateral. absent: Accessory Muscle Use , Rales, Rhonchi, Wheezes, Respiratory Distress - Cardiovascular Exam Cardiovascular Exam: +S1, +S2. absent: Gallop, REGULAR RHYTHM, Rubs, Murmur - GI/Abdominal Exam GI & Abdominal Exam: Soft, Normal Bowel Sounds. absent: Distended, Firm, Guarding, Rigid, Tenderness, Organomegaly - Extremities Exam Extremities Exam: absent: Pedal Edema, Tenderness - Neurological Exam Neurological Exam: Alert, Awake - Psychiatric Exam Psychiatric exam: Normal Affect, Normal Mood - Skin Skin Exam: Dry, Intact, Normal Color, Warm Assessment and Plan - Assessment and Plan (Free Text) Plan: Failure to thrive Patient is refusing to take po medications at times Patient is documented eating "5-10% of meals" with 1/2 to 3/4 glucerna once or twice a day Continue Megace 400 mg po qd Daughter refuses PPN therapy and PEG tube placement. Nutrition consult Anemia Patient may need a transfusion; however having a difficult time getting ahold of family members to obtain consent. Hgb Stable Will monitor for signs of bleeding CHF Lasix 20mg PO - will hold as of now due to MILEY prior echo 07/2017, EF: 40-45% moderate diastolic dysfunction. Elevated left atrial pressure. Grade III restrictive diastolic dysfunction. RV systolic function is moderately reduced. Moderate tricuspid regurgitation. Trace pericardial effusion. Refer to complete report. MILEY Patient with history of CKD Cr trending downwards Fluids at 70 mls/hr PMHx of Afib Xarelto 15mg PO daily ASA 81mg PO QD Toprol XL 50 mg po qd Lower extremity wounds [employer] Attendant-Dr. Mack consulted - stable for discharge per podiatry HTN well controlled Metoprolol 50mg PO QD Imdur 60mg po daily DM Accuchecks ACHS ISS Hypoglycemia protocol Hyperkalemia Resolved Monitor closely Constipation Lactulose 20 gm PO Q12H prn constipation Insomnia Trazodone 50mg PO HS Electrolyte abnormalities Will monitor and replete Rash Under the breasts- fungal in nature- apply nystatin petroleum jelly/ aquaphor for the face Monitor Prophylactic measures Pepcid Xarelto Florastor Dispo- Irais Rossi [phone] daughter is difficult to get a hold of. Ms Rossi admits she turns her phone off sometimes. She was reminded that she should have her phone on in case she needs to make decision regarding mother 's care. Ms. Rossi refuses peg/TPN at this time. Refusing blood transfusion at this time as well. Palliative consult ordered. Discussed with attending. All management per Dr. Baer
[2017-12-25 07:55] VITALS: BP 106/75; RESP 18; TEMP 97.2; O2SAT 96
[2017-12-25] MEDS: Zinc Oxide Topical 30 gm Tube TOP SCH (15:24)
[2017-12-25] MEDS: Multiple Vitamins Tab PO SCH (15:24)
[2017-12-25] MEDS: Saccharomyces Boulardi 250 mg Cap PO SCH ×2 (15:24→17:37)
[2017-12-25] MEDS: POLYETHYLENE GLYCOL 3350 17 GM/Dose PACKET PO SCH (15:25)
[2017-12-25] MEDS: Metoprolol Succinate 50 mg XL Tab PO SCH (15:25)
[2017-12-25] MEDS: Nystatin 100,000 Units/gm Topical Pow(15 gm) TOP SCH ×2 (15:25→17:37)
--- NOTE | 2017-12-25 15:25 | CP.PCM.CON ---
History of Present Illness - History of Present Illness History of Present Illness: Palliative consult requested by Doctor Madden for goals of care discussion Patient is a 87 o female admitted from [facility] with failure to thrive. Per [place] reports patient had refused food and her meds. patient was patient here in October/2017 treated for pneumonia. Per record, patient pulled out her IV line and requested discharge AMA. PMH: DM, HTN, dementia, Alzheimer's, A fib, anxiety Soc, Hx: , [place] resident for the last 1.5 year Fam. Hx: HTN in family Review of Systems - Constitutional Constitutional: absent: As Per HPI, Anorexia, Chills, Daytime Sleepiness, Excessive Sweating, Fatigue, Fever, Frequent Falls, Headache, Increased Appetite , Lethargy, Malaise, Night Sweats, Snoring, Sleep Apnea, Weight Gain, Weight Loss, Weakness, Other - EENT Eyes: absent: As Per HPI, Blind Spots, Blurred Vision, Change in Vision, Decreased Night Vision, Diplopia, Discharge, Dry Eye, Exophthalmos, Floaters, Irritation, Itchy Eyes, Loss of Peripheral Vision, Pain, Photophobia, Requires Corrective Lenses, Sees Flashes, Spots in Vision, Tunnel Vision, Other Visual Disturbances, Loss of Vision, Other Ears: absent: As Per HPI, Decreased Hearing, Ear Discharge, Ear Pain, Tinnitus, Abnormal Hearing, Disequilibrium, Dizziness, Other Nose/Mouth/Throat: absent: As Per HPI, Epistaxis, Nasal Congestion, Nasal Discharge, Nasal Obstruction, Nasal Trauma, Nose Pain, Post Nasal Drip, Sinus Pain, Sinus Pressure, Bleeding Gums, Change in Voice, Dental Pain, Dry Mouth, Dysphagia, Halitosis, Hoarsness, Lip Swelling, Mouth Lesions, Mouth Pain, Odynophagia, Sore Throat, Throat Swelling, Tongue Swelling, Facial Pain, Neck Pain, Neck Mass, Other - Breasts Breasts: absent: As Per HPI, Change in Shape, Mass, Pain, Nipple Discharge, Nipple Inversion, Skin Changes, Swelling, Other - Cardiovascular Cardiovascular: Rapid Heart Rate - Respiratory Respiratory: absent: As Per HPI, Cough, Dyspnea, Hemoptysis, Dyspnea on Exertion , Wheezing, Snoring, Stridor, Pain on Inspiration, Chest Congestion, Excessive Mucous Production, Change in Mucous Color, Pain with Coughing, Other - Gastrointestinal Gastrointestinal: absent: As Per HPI, Abdominal Pain, Belching, Bloating, Change in Bowel Habits, Change in Stool Character, Coffee Ground Emesis, Constipation, Cramping, Diarrhea, Dyspepsia, Dysphagia, Early Satiety, Excessive Flatus, Fecal Incontinence, Heartburn, Hematemesis, Hematochezia, Loose Stools, Melena, Nausea, Odynophagia, Temesmus, Vomiting, Other - Genitourinary Genitourinary: absent: As Per HPI, Change in Urinary Stream, Difficulty Urinating, Dysuria, Flank Pain, Hematuria, Pyuria, Nocturia, Urinary Incontinence, Urinary Frequency, Urinary Hesitance, Urinary Urgency, Voiding Freq/Small Amts, Freq UTI, Hx Renal/Bladder Calculi, Hx /Renal Surgery, Bladder Distension, Other - Reproductive: Female Reproductive:Female: Post Menopausal - Menstruation Menstruation: Post Menopausal - Musculoskeletal Musculoskeletal: Arthralgias, Limited Range of Motion - Integumentary Integumentary: absent: As Per HPI, Acne, Alopecia, Bleeding Lesions, Change in Hair, Change in Nails, Change in Pigmentation, Changing Lesions, Dry Skin, Erythema, Furuncle, Hirsutism, Lesions, New Lesions, Non-Healing Lesions, Photosensitivity, Pruritus, Rash, Skin Pain, Skin Ulcer, Sores, Striae, Swelling , Unusual Bruising, Wounds, Jaundice, Other - Neurological Neurological: absent: As Per HPI, Abnormal Gait, Abnormal Hearing, Abnormal Movements, Abnormal Speech, Behavioral Changes, Burning Sensations, Confusion, Convulsions, Disequilibrium, Dizziness, Numbness, Focal Weakness, Frequent Falls , Headaches, Lack of Coordination, Loss of Vision, Memory Loss, Paresthesias, Radicular Pain, Restless Legs, Sensory Deficit, Syncope, Tingling, Tremor, Vertigo, Weakness, Other Visual Disturbances, Other - Psychiatric Psychiatric: Anxiety - Endocrine Endocrine: absent: As Per HPI, Change in Body Appearance, Change in Libido, Cold Intolorance, Deepening of Voice, Excessive Sweating, Fatigue, Flushing, Heat Intolorance, Increase in Ring/Shoe/Hat Size, Palpitations, Polydipsia, Polyphagia, Polyuria, Other - Hematologic/Lymphatic Hematologic: absent: As Per HPI, Easy Bleeding, Easy Bruising, Lymphadenopathy, Other Past Patient History - Infectious Disease Hx of Infectious Diseases: None - Tetanus Immunizations Tetanus Immunization: Unknown - Past Medical History & Family History Past Medical History?: Yes - Past Social History Smoking Status: Former Smoker - CARDIAC Hx Cardiac Disorders: Yes Hx Atrial Fibrillation: Yes Hx Congestive Heart Failure: Yes Hx Hypercholesterolemia: Yes Hx Hypertension: Yes Hx Peripheral Edema: Yes - PULMONARY Hx Respiratory Disorders: Yes Hx Chronic Obstructive Pulmonary Disease (COPD): Yes - NEUROLOGICAL Hx Neurological Disorder: Yes Hx Alzheimer's Disease: Yes Hx Dementia: Yes - HEENT Hx HEENT Problems: No - RENAL Hx Chronic Kidney Disease: No - ENDOCRINE/METABOLIC Hx Endocrine Disorders: Yes Hx Diabetes Mellitus Type 2: Yes - HEMATOLOGICAL/ONCOLOGICAL Hx Blood Disorders: No Hx Blood Transfusions: No Hx Blood Transfusion Reaction: No - INTEGUMENTARY Hx Dermatological Problems: Yes Other/Comment: Hx Diabetic foot ulcer and non healing wound - MUSCULOSKELETAL/RHEUMATOLOGICAL Hx Falls: No - GASTROINTESTINAL Hx Gastrointestinal Disorders: No - GENITOURINARY/GYNECOLOGICAL Hx Genitourinary Disorders: Yes Hx Urinary Tract Infection: Yes - PSYCHIATRIC Hx Substance Use: No - SURGICAL HISTORY Hx Surgeries: Yes Hx Section: Yes (x2) - ANESTHESIA Hx Anesthesia: Yes Hx Anesthesia Reactions: No Hx Malignant Hyperthermia: No Has any member of the family had a problem w/ anesthesia?: No Meds Home Medications: Home Medication List Medication Instructions Recorded Confirmed Type Megestrol Acetate [Megace] 400 mg PO DAILY #0 cup 12/25/17 Rx Rivaroxaban [Xarelto] 15 mg PO DAILY tab 12/25/17 Rx Rivaroxaban [Xarelto] 15 mg PO DAILY #0 12/25/17 12/16/17 Rx Allergies/Adverse Reactions: Allergies Allergy/AdvReac Type Severity Reaction Status Date / Time ertapenem sodium Allergy RASH Verified 12/16/17 19:48 [From Invanz] - Medications Medications: Current Medications Amlodipine Besylate (Norvasc) 10 mg PO DAILY [facility] Last Admin: 12/24/17 10:46 Dose: Not Given Aspirin (Aspirin Chewable) 81 mg PO DAILY [facility] Last Admin: 12/24/17 10:45 Dose: Not Given Famotidine (Pepcid) 20 mg PO DAILY [facility] Last Admin: 12/24/17 10:46 Dose: Not Given Furosemide (Lasix) 20 mg IVP DAILY [facility] Last Admin: 12/24/17 10:43 Dose: 20 mg Isosorbide Mononitrate (Imdur) 60 mg PO DAILY [facility] Last Admin: 12/24/17 10:45 Dose: Not Given Lactulose (Enulose) 20 gm PO Q12 PRN PRN Reason: Constipation Last Admin: 12/20/17 09:18 Dose: 20 gm Megestrol Acetate (Megace) 400 mg PO DAILY [facility] Metoprolol Succinate (Toprol Xl) 50 mg PO DAILY [facility] Last Admin: 12/24/17 10:46 Dose: Not Given Multivitamins (Hexavitamin) 1 tab PO DAILY [facility] Last Admin: 12/24/17 10:45 Dose: Not Given Nystatin (Nystop Topical Powder) 0 gm TOP BID [facility] Last Admin: 12/24/17 18:50 Dose: 1 dose Petrolatum (Desitin Original) 0 gm TOP DAILY [facility] Last Admin: 12/23/17 12:44 Dose: 1 applic Polyethylene Glycol (Miralax) 17 gm PO DAILY [facility] Last Admin: 12/24/17 10:45 Dose: Not Given Rivaroxaban (Xarelto) 15 mg PO DAILY [facility] Last Admin: 12/24/17 10:46 Dose: Not Given Saccharomyces Boulardii (Florastor) 250 mg PO BID [facility] Last Admin: 12/24/17 18:50 Dose: Not Given Sodium Hypochlorite (Dakins Solution 0.125%) 1 appl TOP BID [facility] Last Admin: 12/24/17 18:49 Dose: 1 appl Tramadol HCl (Ultram) 50 mg PO Q6 PRN PRN Reason: Pain, severe (8-10) Last Admin: 12/21/17 02:44 Dose: 50 mg Trazodone HCl (Desyrel) 50 mg PO HS [facility] Last Admin: 12/24/17 21:16 Dose: Not Given Physical Exam - Constitutional Appears: No Acute Distress - Head Exam Head Exam: ATRAUMATIC, NORMAL INSPECTION, NORMOCEPHALIC - Eye Exam Eye Exam: EOMI, Normal appearance, PERRL Pupil Exam: NORMAL ACCOMODATION, PERRL - ENT Exam ENT Exam: Mucous Membranes Moist, Normal Exam - Neck Exam Neck exam: Positive for: Normal Inspection - Respiratory Exam Respiratory Exam: Clear to Auscultation Bilateral, NORMAL BREATHING PATTERN - Cardiovascular Exam Cardiovascular Exam: Tachycardia, Irregular Rhythm - GI/Abdominal Exam GI & Abdominal Exam: Diminished Bowel Sounds - Rectal Exam Rectal Exam: Deferred - Extremities Exam Extremities exam: Positive for: pedal edema - Back Exam Back exam: NORMAL INSPECTION - Neurological Exam Neurological exam: Alert, Oriented x3 - Psychiatric Exam Psychiatric exam: Anxious - Skin Skin Exam: Pallor Results - Vital Signs Recent Vital Signs: Last Vital Signs Temp 97.2 F L 12/25/17 07:40 Pulse 79 12/25/17 07:40 Resp 18 12/25/17 07:40 BP 106/75 12/25/17 07:40 Pulse Ox 96 12/25/17 07:40 - Labs Result Diagrams: 12/24/17 06:58 12/24/17 06:58 Labs: Laboratory Results - last 24 hr 12/25/17 12/25/17 06:41 12:25 POC Glucose (mg/dL) 118 H 163 H Assessment & Plan - Assessment and Plan (Free Text) Assessment: Palliative consult Full Code, there is no Advance4 Directive on chart, PPS30% I reviewed medical records, all diagnostic studies, examined and interviewed patient in the bed. Patient is alert, oriented X 3 with affect that is anxious and speech clear. Daughter Irais at bed side. Skin is pale . Hb 7.5. Breath sound normal. Abdomen large, soft, diminished bowel sounds. Lunch tray at bed side, patient ate about 30-40 % of food. Mild pedal edema. Limited ROM due to obesity. BP 106/75, HR 79, O2Sat 96 % RA, afebrile. Denies pain. Goals of care discussed with daughter Irais in presence of patent. I wilmer my concern about patient recorded poor PO intake for only about 5 -10 % of each meal. Daughter said, that patient likes only specific kind of food and every time daughter bring food from home, patient eats it all. Today she brought patient a sandwich which patient ate all. Daughter also reports that patient has been asking about going home for a long time. patient does not like [place], especially food there. When I mentioned that if patient's food intake really decline she may have to have a PEG. Daughter simple said " that will not happen ". Per daughter, patient has not lst any weight. She was not sure how much patient weight at present.Patient also supported her dislike of [place] saying that there were "many sick people'. Daughter will meet tomorrow with Administartor at [facility] to discuss home discharge planing. Code status discussed. Daughter said that she had same discussion at [facility] and choose Full Code. Impression * This is eledrly woman in no acute distress with significant PMH * Patient is alert, and able to make her needs known * Patient dislikes food at [place] and hospital and prefers home made food * Patient is insisting on returning home and family is investigating its possibilities * Family wants Full Code for patient, meaning CPR and intubation Suggestion * Discharge to [place] * Would [facility] * Continue Pall[facility] Care at [facility] with [facility] [employer] * Full Code Advance Care planing time, 45 min
== END 2017-12-25 18:49 | DRG 292 ==
LOC: C.ER 19:02 → C.6T 12-17 00:37 → C.9E 12-17 00:37
PROVIDERS: ADMIT Internal Medicine Pulmonary Disease; ATTEND Internal Medicine Pulmonary Disease
DX: I13.0 Hypertensive heart and chronic kidney disease with heart failure and stage 1 through stage 4 chronic kidney disease, or unspecified chronic kidney disease (principal); I50.32 Chronic diastolic (congestive) heart failure; N17.9 Acute kidney failure, unspecified; E11.621 Type 2 diabetes mellitus with foot ulcer; E11.51 Type 2 diabetes mellitus with diabetic peripheral angiopathy without gangrene; E11.22 Type 2 diabetes mellitus with diabetic chronic kidney disease; E66.9 Obesity, unspecified; E78.5 Hyperlipidemia, unspecified; E87.5 Hyperkalemia; F02.80 Dementia in other diseases classified elsewhere, unspecified severity, without behavioral disturbance, psychotic disturbance, mood disturbance, and anxiety; G30.9 Alzheimer's disease, unspecified; G47.00 Insomnia, unspecified; K59.00 Constipation, unspecified; J44.9 Chronic obstructive pulmonary disease, unspecified; N18.9 Chronic kidney disease, unspecified; R62.7 Adult failure to thrive; I48.91 Unspecified atrial fibrillation; Z51.5 Encounter for palliative care; Z87.891 Personal history of nicotine dependence; Z68.37 Body mass index [BMI] 37.0-37.9, adult

== ENCOUNTER 2018-01-12 17:50 | Inpatient (IN) | payer MEDICARE, OTHER ==
[2018-01-12 17:51] VITALS: BMI 30.2
[2018-01-12] MEDS ORDERED: Sodium Chloride 0.9% 500 ML IV ONE (18:29)
[2018-01-12] MEDS ORDERED: Piperacillin/Tazobact 3.375 gm 100 ML IV STA (18:30)
[2018-01-12] MEDS ORDERED: Vancomycin 1 GM 1 GM/250 ML BAG IV SCH (18:30)
[2018-01-12 18:40] LABS: BASO # 0.1 K/uL (0.0-0.2); BASO % 0.7 % (0.0-2.0); HEMOGLOBIN 8.8 g/dL (11.0-16.0); LYMPH # 0.3 K/uL (1.0-4.3); LYMPH % 3.2 % (20.0-40.0); MEAN CELL VOLUME 75.6 fL (81.0-99.0); MEAN CORPUSCULAR HEMOGLOBIN 23.3 pg (27.0-31.0); MEAN CORPUSCULAR HGB CONC 30.8 g/dL (33.0-37.0); MEAN PLATELET VOLUME 8.9 fL (7.2-11.7); MONO # 0.8 K/uL (0.0-0.8); MONO % 9.2 % (0.0-10.0); NEUT # 7.4 K/uL (1.8-7.0); NEUT % 86.9 % (50.0-75.0); NRBC % 7.6 % (0.0-2.0); RBC 3.76 Mil/uL (3.80-5.20); RED CELL DISTRIBUTION WIDTH 27.4 % (11.5-14.5)
[2018-01-12] MEDS ORDERED: Piperacillin/Tazobact 3.375 gm 100 ML IVPB ONE (18:45)
[2018-01-12 18:48] LABS: PLATELET COUNT 363 K/uL (130-400); WHITE BLOOD COUNT 8.5 K/uL (4.8-10.8)
[2018-01-12] MEDS ORDERED: Vancomycin 1 gm/NS 200 ml 1 GM/200 ML BAG IVPB SCH (19:00)
[2018-01-12 19:01] LABS: ALB/GLOB RATIO 0.7 (1.0-2.1); ALBUMIN 3.4 g/dL (3.5-5.0); CALCIUM 9.7 mg/dl (8.6-10.4)
[2018-01-12 19:05] LABS: TROPONIN I 0.039 ng/mL (0.00-0.120)
[2018-01-12 19:06] LABS: ANISOCYTOSIS MODERATE; LYMPHOCYTE 7 % (20-40); MONOCYTE 4 % (0-10); NEUTROPHIL 89 % (50-75); NUCLEATED RED BLOOD CELL 4 % (0-0); PLATELET ESTIMATE NORMAL (NORMAL); TOTAL CELLS COUNTED 100
[2018-01-12 19:07] LABS: HYPOCHROMIC MODERATE; MICROCYTOSIS SLIGHT; POLYCHROMIC SLIGHT; TARGET CELLS SLIGHT
[2018-01-12 19:08] LABS: BURR CELLS SLIGHT; OVALOCYTES SLIGHT; SCHISTOCYTES SLIGHT
[2018-01-12 19:11] LABS: VENOUS BLOOD GAS BASE EXCESS -6.9 mmol/L (0.0-2.0); VENOUS BLOOD GAS PCO2 50 mmHg (40-60); VENOUS BLOOD GAS PO2 22 mm/Hg (30-55); VENOUS BLOOD PH 7.23 (7.32-7.43)
--- NOTE | 2018-01-12 19:25 | C.PDOC ---
History Of Present Illness 87 year old female is sent to the ED from her [facility] for evaluation of increase lethargy, poor PO intake for the past 5 days. Patient has been admitted previously for similar presentation. Patient denies fever, chills, nausea, vomit, diarrhea. Time Seen by Provider: 01/12/18 18:29 Chief Complaint (Nursing): Weakness/Neurological Deficit History Per: Patient History/Exam Limitations: no limitations Onset/Duration Of Symptoms: Days (5) Current Symptoms Are (Timing): Still Present Associated Symptoms Preceding Syncopal Episode: No Predromal Symptoms (Sudden Onset) Seizure Or Post-ictal Symptoms: None Fall Associated With With Symptoms: No Severity: None Recent travel outside of the [place]: No Additional History Per: Patient, [facility] Past Medical History Reviewed: Historical Data, Nursing Documentation, Vital Signs Vital Signs: Last Vital Signs Temp 98 F 01/12/18 19:54 Pulse 120 H 01/12/18 19:54 Resp 18 01/12/18 19:54 BP 116/67 01/12/18 19:54 Pulse Ox 90 L 01/12/18 20:00 - Medical History PMH: Alzheimer's Disease, Anxiety, Atrial Fibrillation, CHF, COPD, Dementia, Depression, Diabetes, HTN, Hypercholesterolemia, Peripheral Edema Denies: Chronic Kidney Disease Surgical History: - [facility] Procedures INJECT/INFUSE NEC (11/24/12) INSERTION OF INFUSION DEV INTO SUP VENA CAVA, PERC APPROACH (07/18/17) INSERTION OF INFUSION DEVICE INTO UPPER VEIN, PERC APPROACH (11/21/17) NONEXCIS DEBRID OF WOUND, INFECT, OR BURN (01/19/13) TRANSFUSE NONAUT RED BLOOD CELLS IN PERIPH VEIN, PERC (11/21/17) Family History: States: Unknown Family Hx - Social History Hx Tobacco Use: No Hx Alcohol Use: No Hx Substance Use: No - Immunization History Hx Tetanus Toxoid Vaccination: No Hx Influenza Vaccination: No Hx Pneumococcal Vaccination: No Review Of Systems Constitutional: Positive for: Weakness. Negative for: Fever, Chills Cardiovascular: Negative for: Chest Pain Respiratory: Negative for: Shortness of Breath Gastrointestinal: Negative for: Nausea, Vomiting Skin: Negative for: Rash Psych: Negative for: Depression, Suicidal ideation Physical Exam - Physical Exam Appears: Non-toxic, Other (Lethargic, hypothermic) Skin: Normal Color, Warm, Dry Head: Atraumatic, Normacephalic Eye(s): bilateral: Normal Inspection Nose: No Discharge Oral Mucosa: Moist Neck: Normal ROM, Supple Cardiovascular: Rhythm Regular, No Murmur, JVD Respiratory: No Rales, No Rhonchi, No Stridor, Other (B/L coarse breath sounds) Gastrointestinal/Abdominal: Soft, No Tenderness, No Guarding, No Rebound, Other (Obsese) Extremity: Normal ROM, No Tenderness, Pedal Edema (Pitting ), Capillary Refill ( < 2 seconds) Pulses: Left Dorsalis Pedis: Normal, Right Dorsalis Pedis: Normal Neurological/Psych: Oriented x3, Normal Speech Gait: Unable To Assess ED Course And Treatment - Laboratory Results Result Diagrams: 01/12/18 18:37 01/12/18 18:37 ECG: Interpreted By Me ECG Rhythm: Atrial Fibrillation ECG Interpretation: Abnormal Rate From EC (BPM) O2 Sat by Pulse Oximetry: 90 Pulse Ox Interpretation: Abnormal - Radiology CXR: Interpreted by Me CXR Interpretation: Yes: Other (+ congestion of CHF vs pna) Reevaluation Time: 19:57 - Physician Consult Information Outcome Of Conversation: 1999, d/w Dr. Vora, PMD- ok to admit. Understands DNR Medical Decision Making Medical Decision Making: Plan: * EKG * CXR * Labs * IV fluids * Vancomycin IV * Zosyn IV * UA * Blood culture sepsis, CHF but HYPOtensive with JVD Sepsis ? lung source: empiric abx anasrca poor nutritional status Anuric- ? sepsis due to urine covered with abx empirically code status d/w Daughter @ bedside DNR per pt's wishes ordered and paperwork completed. Disposition Doctor Will See Patient In The: Hospital Counseled Patient/Family Regarding: Studies Performed, Diagnosis - Disposition Disposition: HOSPITALIZED Disposition Time: 20:00 Condition: GUARDED - Clinical Impression Clinical Impression: CHF (congestive heart failure), Anasarca, Mental status change, Sepsis, Hypothermia - Scribe Statement The provider has reviewed the documentation as recorded by the Scribe Natan Guaman All medical record entries made by the Scribe were at my direction and personally dictated by me. I have reviewed the chart and agree that the record accurately reflects my personal performance of the history, physical exam, medical decision making, and the department course for this patient. I have also personally directed, reviewed, and agree with the discharge instructions and disposition.
[2018-01-12 21:34] LABS: SQUAMOUS EPITHIAL 1 /hpf (0-5); URINE BILIRUBIN NEGATIVE (NEGATIVE); URINE BLOOD 3+ (NEGATIVE); URINE CLARITY Clear (Clear); URINE COLOR Straw (YELLOW); URINE GLUCOSE (UA) NORMAL (Normal); URINE LEUKOCYTE ESTERASE NEG Leu/uL (Negative); URINE PROTEIN NEGATIVE (NEGATIVE); URINE UROBILINOGEN NORMAL mg/dL (0.2-1.0)
--- NOTE | 2018-01-13 08:50 | CP.PCM.PN ---
Subjective - Date & Time of Evaluation Date of Evaluation: 01/13/18 Time of Evaluation: 08:49 - Subjective Subjective: PGY-[address] Baer's service: Pt seen and examined at bedside. Nursing reports inability to place marsh due to obstruction and patient retaining >400cc on bladder scan. Pt hypothermic this AM, so tosha alexey ordered. Consult to Dr. Marques, urologist, for marsh placement. Pt admitted with Lactic Acid of 4.3. Repeat lactate ordered for AM. ER notes documented signed DNR/DNI by pt POA. Several calls placed to Irais Rossi, pt daughter but calls go directly to voice mail. Spoke with grandson at bedside, who will try to reach out to Ms. Rossi to clarify DNR/DNI order. ROS unavailable due to pt clinical condition. Objective - Vital Signs/Intake and Output Vital Signs (last 24 hours): Temp Pulse Resp BP Pulse Ox 94.7 F L 76 22 102/73 99 01/13/18 06:09 01/13/18 06:09 01/12/18 22:51 01/13/18 06:09 01/12/18 22:51 - Medications Medications: Current Medications Vancomycin/Sodium Chloride (Vancomycin 1 Gm/Ns 200 Ml) 1 gm in 200 mls @ 133 mls/hr IVPB STAT BRANT PRN Reason: Protocol Stop: 01/17/18 18:31 Last Admin: 01/12/18 19:31 Dose: 133 mls/hr Meropenem 500 mg/ Sodium (Chloride) 100 mls @ 100 mls/hr IVPB Q12 BRANT PRN Reason: Protocol - Labs Labs: 01/12/18 18:37 01/12/18 18:37 - Constitutional Appears: Toxic, Chronically Ill - Head Exam Head Exam: ATRAUMATIC, NORMAL INSPECTION - Eye Exam Eye Exam: EOMI. absent: Scleral icterus - ENT Exam ENT Exam: Mucous Membranes Dry - Respiratory Exam Respiratory Exam: Rales, Wheezes. absent: NORMAL BREATHING PATTERN - Cardiovascular Exam Cardiovascular Exam: Tachycardia, +S1, +S2, +S4 - GI/Abdominal Exam GI & Abdominal Exam: Soft, Normal Bowel Sounds. absent: Tenderness - Extremities Exam Extremities Exam: Pedal Edema. absent: Normal Inspection Additional comments: Wounds on bilateral legs Anasarca to mid-thigh - Neurological Exam Neurological Exam: Altered - Psychiatric Exam Psychiatric exam: Normal Affect - Skin Skin Exam: absent: Normal Color, Warm Assessment and Plan - Assessment and Plan (Free Text) Plan: Sepsis Admit to tele Criteria: (Temp <96.8, Tachy) Source: leg wounds vs pneumonia - UA no nitrate, LE, minimal WBCs Initial lactate 4.3 CXR (01/13/18): Moderate venous congestion w relative increased opacification throughout right lung field. Bilateral hilar prominence. Patchy consolidative changes in left infrahilar region. Enlarged ectatic aorta. Cardiomegaly. - No code sepsis called in ED, received 1 L bolus Code Sepsis called as repeat lactate 4.3 Dr. Grimaldo ID investigations consultant - Start STAT Aztreonam 500mg IV Q8H, Vanc 1gm IV ordered, - Zosyn/ Vanc given once in ED - cannot give fluids at this time due to pulm effusion/anasarca - cannot give lasix due to urethral obstruction/inability to place marsh CHF Exacerbation BNP ~23k (previous: 7800, 7400) prior echo 07/2017, EF: 40-45% moderate diastolic dysfunction. Elevated left atrial pressure. Grade III restrictive diastolic dysfunction. RV systolic function is moderately reduced. Moderate tricuspid regurgitation. Trace pericardial effusion. Refer to complete report. Pt anuric vs obstruction - Marsh placed by Dr. Marques - no drainage - Lasix 40mg IV once Urethral obstruction STAT consult to urologist, Dr. Marques, help appreciated - coude catheter placed, but no drainage Anemia of Chronic Disease Hgb Stable 8.8 Will monitor for signs of bleeding MILEY on CKD Patient with history of CKD Cr 2.7 PMHx of Afib HOLD HOME meds at this time: Xarelto 15mg PO daily ASA 81mg PO QD Toprol XL 50 mg po qd Lower extremity wounds Chronic wounds Transaminitis AST/ALT 94/60, Alk phos 235 Elevated T bili 1.8 on admission HTN HOLD home meds: Metoprolol 50mg PO QD Imdur 60mg po daily DM Accuchecks ACHS HOLD ISS for now Electrolyte abnormalities Hyperkalemia K 6.2 this AM - ordered calcium gluconate - ordered kayexalate 30gm AR (refused by POA Steve Rossi) Prophylactic measures SCD C/i due to leg wounds/anasarca HOLD VTE due pt anemia GI not indicated Disposition: Irais Rossi [phone] daughter is difficult to get a hold of. Ms Rossi admitted on previous admissions she turns her phone off sometimes. Left several messages on her phone this AM asking for return call to clarify DNR/DNI. Palliative consult obtained to reinforce goals of care. Discussed patient care planning extensively with attending, Dr. Baer. All management per Dr. Baer
--- NOTE | 2018-01-13 09:01 | RAD ---
Chest x-ray single frontal view History: Shortness of breath. Comparison: 12/16/2017 Findings: Moderate right pleural effusion. Moderate venous congestion with relative increased opacification throughout the right lung field. Bilateral hilar prominence. Additional patchy consolidative changes in the left infrahilar region. Enlarged ectatic aorta. Cardiomegaly. Degenerative changes in the spine and shoulders. Impression: Moderate right pleural effusion. Moderate venous congestion with relative increased opacification throughout the right lung field. Bilateral hilar prominence. Additional patchy consolidative changes in the left infrahilar region. Enlarged ectatic aorta. Cardiomegaly.
[2018-01-13 09:36] LABS: BASO % 0.1 % (0.0-2.0); HEMOGLOBIN 8.5 g/dL (11.0-16.0); LYMPH # 0.2 K/uL (1.0-4.3); LYMPH % 2.4 % (20.0-40.0); MEAN CELL VOLUME 76.4 fL (81.0-99.0); MEAN CORPUSCULAR HEMOGLOBIN 23.2 pg (27.0-31.0); MEAN CORPUSCULAR HGB CONC 30.4 g/dL (33.0-37.0); MEAN PLATELET VOLUME 9.7 fL (7.2-11.7); MONO % 10.9 % (0.0-10.0); NEUT # 7.7 K/uL (1.8-7.0); NEUT % 86.6 % (50.0-75.0); NRBC % 8.4 % (0.0-2.0); PLATELET COUNT 334 K/uL (130-400); RBC 3.66 Mil/uL (3.80-5.20); RED CELL DISTRIBUTION WIDTH 27.6 % (11.5-14.5); WHITE BLOOD COUNT 8.9 K/uL (4.8-10.8)
[2018-01-13 09:45] LABS: INR 1.6; PROTHROMBIN TIME 17.2 SECONDS (9.7-12.2)
[2018-01-13 10:18] LABS: ALB/GLOB RATIO 0.7 (1.0-2.1); ALBUMIN 3.2 g/dL (3.5-5.0); CALCIUM 9.3 mg/dl (8.6-10.4)
[2018-01-13 10:24] LABS: ANISOCYTOSIS MARKED; BANDS 2 % (0-2); HYPOCHROMIC MODERATE; LYMPHOCYTE 5 % (20-40); MONOCYTE 9 % (0-10); NEUTROPHIL 84 % (50-75); NUCLEATED RED BLOOD CELL 13 % (0-0); PLATELET ESTIMATE NORMAL (NORMAL); TOTAL CELLS COUNTED 100
[2018-01-13 10:25] LABS: TARGET CELLS MODERATE
[2018-01-13 10:26] LABS: OVALOCYTES SLIGHT
[2018-01-13 10:27] LABS: BURR CELLS SLIGHT; POIKILOCYTOSIS MODERATE; SCHISTOCYTES SLIGHT
--- NOTE | 2018-01-13 10:45 | PCM.SEPTIC ---
Sepsis Progress Note - Reassessment Type Date of Evaluation: 01/13/18 Time of Evaluation: 10:44 Reassessment Type: Non-invasive reassessment - Non Invasive Reassessment Were the most recent vital sign reviewed: Yes Vital Sign (Latest): Temp Pulse Resp BP Pulse Ox 94.7 F L 76 22 102/73 99 01/13/18 06:09 01/13/18 06:09 01/12/18 22:51 01/13/18 06:09 01/12/18 22:51 Cardiovascular: Yes: JVD, Irregularly Irregular Respiratory: Yes: Accessory Muscle Use, Rales Capillary Refill: Delayed Pulses: Normal Radial, Decreased Dorsalis Pedis, Decreased Posterior Tibialis Skin: Dry, Other (Wounds on lower legs) - Invasive Reassessment (complete 2 of 4) Was a Central Venous Pressure Measurement obtained within 6 Hours after the presentation of septic shock: No Was a passive leg raise performed or was a fluid challenge performed within 6 hrs of the initial fluid bolus: No Fluid Challenge performed: No Assessment & Plan - Assessment and Plan (Free Text) Assessment: CODE SEPSIS CALLED @ AM Initial lactate in ED on 01/12 4.3, pt given 1L fluid bolus in ED Repeat lactate not ordered, no code sepsis called initially Repeat AM lactate 4.3, CODE SEPSIS called - Dr. Grimaldo consulted, start Aztreonam/Vancomycin - source: Pneumonia vs chronic leg wounds or most likely combination - Cannot give fluid bolus due to anasarca/pleural effusion - Marsh cath unable to be inserted due to obstruction - STAT consult to Dr. Marques for marsh placement
[2018-01-13] MEDS ORDERED: Calcium Gluconate 4.65 mEq/10 ml Inj IVP ONE (11:20)
[2018-01-13] MEDS: Sod Polystyrene Sulf 15 gm/60 ml Susp PR ONE ×2 (12:16→12:26)
--- NOTE | 2018-01-13 12:16 | CP.PCM.CON ---
History of Present Illness - History of Present Illness History of Present Illness: Palliative consult requested by Doctor Madden for goals of care discussion Patient is a 87 yo female admitted [place] with lethargy and poor PO intakes X 5 days as per report. Upon admission CXR was significant for pleural effusion. Patient retains urine, 400 cc per bladder scan. Nursing unable to insert Duvall cath. Doctor Shelli called STAT to help. rectal Temp 94.0. Bear blanket on. patient unable to participate in goals of care discussion. Patient's daughter Reji Rossi is unreachable on the phone, and call go straight to voice mail . DNR/DNI order placed in ER upon admission. Attending on the floor asked me to clarify it with daughter. PMH: A Fib, Alzheimers, anxiety, COPD, CHF Soc, Hx: [place] resident, , daughter Reji involved in care Fam. Hx: Unknown at present. Review of Systems - Review of Systems All systems: reviewed and no additional remarkable complaints except Review of Systems: ROS unable to obtain from the patient. Per nursing , patient on Bear blanket for hypotermia Past Patient History - Infectious Disease Hx of Infectious Diseases: None - Tetanus Immunizations Tetanus Immunization: Unknown - Past Medical History & Family History Past Medical History?: Yes - Past Social History Smoking Status: unknown - CARDIAC Hx Atrial Fibrillation: Yes Hx Congestive Heart Failure: Yes Hx Hypercholesterolemia: Yes Hx Hypertension: Yes Hx Peripheral Edema: Yes - PULMONARY Hx Chronic Obstructive Pulmonary Disease (COPD): Yes - NEUROLOGICAL Hx Alzheimer's Disease: Yes Hx Dementia: Yes - HEENT Hx HEENT Problems: No - RENAL Hx Chronic Kidney Disease: No - ENDOCRINE/METABOLIC Hx Endocrine Disorders: Yes Hx Diabetes Mellitus Type 2: Yes - HEMATOLOGICAL/ONCOLOGICAL Hx Blood Disorders: No Hx Blood Transfusions: No Hx Blood Transfusion Reaction: No - INTEGUMENTARY Hx Dermatological Problems: Yes Other/Comment: Hx Diabetic foot ulcer and non healing wound - MUSCULOSKELETAL/RHEUMATOLOGICAL Hx Falls: No (unknown) - GASTROINTESTINAL Hx Gastrointestinal Disorders: No - GENITOURINARY/GYNECOLOGICAL Hx Genitourinary Disorders: Yes Hx Urinary Tract Infection: Yes - PSYCHIATRIC Hx Substance Use: No (unknown) - SURGICAL HISTORY Hx Surgeries: Yes Hx Section: Yes (x2) Other/Comment: 01/13 unable to obtain any information from patient - ANESTHESIA Hx Anesthesia: Yes Hx Anesthesia Reactions: No Hx Malignant Hyperthermia: No Meds Allergies/Adverse Reactions: Allergies Allergy/AdvReac Type Severity Reaction Status Date / Time ertapenem sodium Allergy RASH Verified 12/16/17 19:48 [facility] - Medications Medications: Current Medications Vancomycin/Sodium Chloride (Vancomycin 1 Gm/Ns 200 Ml) 1 gm in 200 mls @ 133 mls/hr IVPB STAT BRANT PRN Reason: Protocol Stop: 01/17/18 18:31 Last Admin: 01/12/18 19:31 Dose: 133 mls/hr Aztreonam 0.5 gm/ Sodium (Chloride) 100 mls @ 200 mls/hr IVPB Q8H BRANT PRN Reason: Protocol Last Admin: 01/13/18 10:44 Dose: 200 mls/hr Calcium Gluconate 4.65 meq/ (Sodium Chloride) 110 mls @ 110 mls/hr IV ONCE ONE Stop: 01/13/18 12:59 Last Admin: 01/13/18 12:06 Dose: 110 mls/hr Physical Exam - Constitutional Appears: In Acute Distress - Head Exam Head Exam: ATRAUMATIC, NORMAL INSPECTION, NORMOCEPHALIC - Eye Exam Eye Exam: EOMI, Normal appearance, PERRL Pupil Exam: NORMAL ACCOMODATION - ENT Exam ENT Exam: Mucous Membranes Moist - Neck Exam Neck exam: Positive for: Normal Inspection - Respiratory Exam Respiratory Exam: Decreased Breath Sounds, Respiratory Distress - Cardiovascular Exam Cardiovascular Exam: Tachycardia - GI/Abdominal Exam GI & Abdominal Exam: Normal Bowel Sounds - Rectal Exam Rectal Exam: Deferred - Extremities Exam Extremities exam: Positive for: pedal edema - Back Exam Back exam: NORMAL INSPECTION - Neurological Exam Neurological exam: Alert, Altered - Psychiatric Exam Psychiatric exam: Agitated - Skin Skin Exam: Pallor Results - Vital Signs Recent Vital Signs: Last Vital Signs Temp 94.7 F L 01/13/18 06:09 Pulse 76 01/13/18 06:09 Resp 22 01/12/18 22:51 BP 102/73 01/13/18 06:09 Pulse Ox 99 01/12/18 22:51 - Labs Result Diagrams: 01/13/18 09:28 01/13/18 09:28 Labs: Laboratory Results - last 24 hr 01/12/18 01/12/18 01/12/18 18:34 18:37 18:37 WBC 8.5 D RBC 3.76 L Hgb 8.8 L Hct 28.5 L MCV 75.6 L MCH 23.3 L MCHC 30.8 L RDW 27.4 H Plt Count 363 D MPV 8.9 Neut % (Auto) 86.9 H Lymph % (Auto) 3.2 L [place] % (Auto) 9.2 Eos % (Auto) 0.0 Baso % (Auto) 0.7 Neut # (Auto) 7.4 H Lymph # (Auto) 0.3 L [place] # (Auto) 0.8 Eos # (Auto) 0.0 Baso # (Auto) 0.1 Neutrophils % (Manual) 89 H Band Neutrophils % Lymphocytes % (Manual) 7 L Monocytes % (Manual) 4 Nucleated RBC % 4 H Platelet Estimate Normal Polychromasia Slight Hypochromasia (manual) Moderate Poikilocytosis (manual Anisocytosis (manual) Moderate Microcytosis (manual) Slight Target Cells Slight Ovalocytes Slight Manuel Cells Slight Schistocytes Slight PT INR APTT pO2 VBG pH VBG pCO2 VBG HCO3 VBG Total CO2 VBG O2 Sat (Calc) VBG Base Excess VBG Potassium Glucose Lactate Crit Value Called To Crit Value Called By Crit Value Read Back Blood Gas Notified Time Sodium 153 H Potassium 6.0 H Chloride 112 H Carbon Dioxide 23 Anion Gap 24 H BUN 51 H Creatinine 2.7 H Est GFR ( Amer) 20 Est GFR (Non-Af Amer) 17 POC Glucose (mg/dL) 158 H Random Glucose 166 H Lactic Acid Calcium 9.7 Total Bilirubin 1.8 H AST 94 H D ALT 60 H D Alkaline Phosphatase 235 H D Troponin I 0.0390 NT-Pro-B Natriuret Pep 32618 H Total Protein 8.3 Albumin 3.4 L Globulin 4.9 H Albumin/Globulin Ratio 0.7 L Venous Blood Potassium Urine Color Urine Clarity Urine pH Ur Specific [place] Urine Protein Urine Glucose (UA) Urine Ketones Urine Blood Urine Nitrate Urine Bilirubin Urine Urobilinogen Ur Leukocyte Esterase Urine WBC (Auto) Urine RBC (Auto) Ur Squamous Epith Cells Influenza Typ A,B (EIA) 01/12/18 01/12/18 01/12/18 18:38 19:03 21:27 WBC RBC Hgb Hct MCV MCH MCHC RDW Plt Count MPV Neut % (Auto) Lymph % (Auto) [place] % (Auto) Eos % (Auto) Baso % (Auto) Neut # (Auto) Lymph # (Auto) [place] # (Auto) Eos # (Auto) Baso # (Auto) Neutrophils % (Manual) Band Neutrophils % Lymphocytes % (Manual) Monocytes % (Manual) Nucleated RBC % Platelet Estimate Polychromasia Hypochromasia (manual) Poikilocytosis (manual Anisocytosis (manual) Microcytosis (manual) Target Cells Ovalocytes Bennett Cells Schistocytes PT INR APTT pO2 22 L VBG pH 7.23 L VBG pCO2 50 VBG HCO3 17.6 VBG Total CO2 22.4 VBG O2 Sat (Calc) 39.3 L VBG Base Excess -6.9 L VBG Potassium 5.2 Glucose 156 H Lactate 4.3 H* Crit Value Called To Reed verma Crit Value Called By Joseph Crit Value Read Back Y Blood Gas Notified Time 1910 Sodium 150.0 H Potassium Chloride 120.0 H Carbon Dioxide Anion Gap BUN Creatinine Est GFR ( Amer) Est GFR (Non-Af Amer) POC Glucose (mg/dL) Random Glucose Lactic Acid Calcium Total Bilirubin AST ALT Alkaline Phosphatase Troponin I NT-Pro-B Natriuret Pep Total Protein Albumin Globulin Albumin/Globulin Ratio Venous Blood Potassium 5.2 Urine Color Straw Urine Clarity Clear Urine pH 5.0 Ur Specific [place] 1.004 Urine Protein Negative Urine Glucose (UA) Normal Urine Ketones Negative Urine Blood 3+ H Urine Nitrate Negative Urine Bilirubin Negative Urine Urobilinogen Normal Ur Leukocyte Esterase Neg Urine WBC (Auto) 5 Urine RBC (Auto) 23 H Ur Squamous Epith Cells 1 Influenza Typ A,B (EIA) Negative for flu a/b 01/13/18 01/13/18 01/13/18 06:32 09:28 09:28 WBC 8.9 RBC 3.66 L Hgb 8.5 L Hct 28.0 L MCV 76.4 L MCH 23.2 L MCHC 30.4 L RDW 27.6 H Plt Count 334 MPV 9.7 Neut % (Auto) 86.6 H Lymph % (Auto) 2.4 L [place] % (Auto) 10.9 H Eos % (Auto) 0.0 Baso % (Auto) 0.1 Neut # (Auto) 7.7 H Lymph # (Auto) 0.2 L [place] # (Auto) 1.0 H Eos # (Auto) 0.0 Baso # (Auto) 0.0 Neutrophils % (Manual) 84 H Band Neutrophils % 2 Lymphocytes % (Manual) 5 L Monocytes % (Manual) 9 Nucleated RBC % 13 H Platelet Estimate Normal Polychromasia Hypochromasia (manual) Moderate Poikilocytosis (manual Moderate Anisocytosis (manual) Marked Microcytosis (manual) Target Cells Moderate Ovalocytes Slight Manuel Cells Slight Schistocytes Slight PT 17.2 H INR 1.6 APTT 38 H pO2 VBG pH VBG pCO2 VBG HCO3 VBG Total CO2 VBG O2 Sat (Calc) VBG Base Excess VBG Potassium Glucose Lactate Crit Value Called To Crit Value Called By Crit Value Read Back Blood Gas Notified Time Sodium Potassium Chloride Carbon Dioxide Anion Gap BUN Creatinine Est GFR ( Amer) Est GFR (Non-Af Amer) POC Glucose (mg/dL) 164 H Random Glucose Lactic Acid Calcium Total Bilirubin AST ALT Alkaline Phosphatase Troponin I NT-Pro-B Natriuret Pep Total Protein Albumin Globulin Albumin/Globulin Ratio Venous Blood Potassium Urine Color Urine Clarity Urine pH Ur Specific [place] Urine Protein Urine Glucose (UA) Urine Ketones Urine Blood Urine Nitrate Urine Bilirubin Urine Urobilinogen Ur Leukocyte Esterase Urine WBC (Auto) Urine RBC (Auto) Ur Squamous Epith Cells Influenza Typ A,B (EIA) 01/13/18 01/13/18 01/13/18 09:28 09:30 11:09 WBC RBC Hgb Hct MCV MCH MCHC RDW Plt Count MPV Neut % (Auto) Lymph % (Auto) [place] % (Auto) Eos % (Auto) Baso % (Auto) Neut # (Auto) Lymph # (Auto) [place] # (Auto) Eos # (Auto) Baso # (Auto) Neutrophils % (Manual) Band Neutrophils % Lymphocytes % (Manual) Monocytes % (Manual) Nucleated RBC % Platelet Estimate Polychromasia Hypochromasia (manual) Poikilocytosis (manual Anisocytosis (manual) Microcytosis (manual) Target Cells Ovalocytes Bennett Cells Schistocytes PT INR APTT pO2 VBG pH VBG pCO2 VBG HCO3 VBG Total CO2 VBG O2 Sat (Calc) VBG Base Excess VBG Potassium Glucose Lactate Crit Value Called To Crit Value Called By Crit Value Read Back Blood Gas Notified Time Sodium 154 H Potassium 6.2 H* Chloride 114 H Carbon Dioxide 21 L Anion Gap 25 H BUN 55 H Creatinine 2.9 H Est GFR ( Amer) 19 Est GFR (Non-Af Amer) 15 POC Glucose (mg/dL) 140 H Random Glucose 149 H Lactic Acid 4.3 H* Calcium 9.3 Total Bilirubin 1.8 H AST 112 H ALT 70 H Alkaline Phosphatase 212 H Troponin I NT-Pro-B Natriuret Pep Total Protein 7.8 Albumin 3.2 L Globulin 4.7 H Albumin/Globulin Ratio 0.7 L Venous Blood Potassium Urine Color Urine Clarity Urine pH Ur Specific [place] Urine Protein Urine Glucose (UA) Urine Ketones Urine Blood Urine Nitrate Urine Bilirubin Urine Urobilinogen Ur Leukocyte Esterase Urine WBC (Auto) Urine RBC (Auto) Ur Squamous Epith Cells Influenza Typ A,B (EIA) Assessment & Plan - Assessment and Plan (Free Text) Assessment: Palliative consult DNR/DNI, Advance directive on chart signed last night by the daughter, PPS 10% I reviewed medical records, all diagnostic studies, examined patient in bed Patient is alert, agitated with O2 on via mask. Patient is not able to cooperate due to agitation. Skin is pale and clam. Breath sounds diminished, there is white sputum coughed up in the mask. Bladder distended, Doctor Marques is inserting Duvall cath. There is generalized edema. BP 102/73, Temp wilmer up to 96.0. Patient is acidic, lactate 4.3. There is severe dehydration; K 6.2, Na 154, Bun 55. Grandson at bed side trying to reach his mother who is a POA. As of now, per grandson, daughter was on her way to the hospital. Impression * Acutelly ill lady due to severe dehydration and urine retention * Anasarca * Metabolic acidosis * Shortness of breath * DNR/DNI that needs clarification * Sepsis Suggestion * Agree with Doctor Madden to insert Duvall cath * Rehydrate patient with IV hydration * Correct electrolyte imbalance * Would repeat blood STAT for H&H and BNP * Sepsis treatement per Doctor Grimaldo Awaiting for patient's daughter to discuss goals of care
--- NOTE | 2018-01-13 12:37 | CP.PCM.CON ---
History of Present Illness - History of Present Illness History of Present Illness: 87 year old female is sent to the ED from her [facility] for evaluation of increase lethargy, poor PO intake for the past 5 days. Patient has been admitted previously for similar presentation. Patient denies fever, chills, nausea, vomit, diarrhea. has low BP and sepsis protocol in effect IV rx in progrewss poor prognosis from outset - Medical History PMH: Alzheimer's Disease, Anxiety, Atrial Fibrillation, CHF, COPD, Dementia, Depression, Diabetes, HTN, Hypercholesterolemia, Peripheral Edema Denies: Chronic Kidney Disease Surgical History: - [facility] Procedures INJECT/INFUSE NEC (11/24/12) INSERTION OF INFUSION DEV INTO SUP VENA CAVA, PERC APPROACH (07/18/17) INSERTION OF INFUSION DEVICE INTO UPPER VEIN, PERC APPROACH (11/21/17) NONEXCIS DEBRID OF WOUND, INFECT, OR BURN (01/19/13) TRANSFUSE NONAUT RED BLOOD CELLS IN PERIPH VEIN, PERC (11/21/17) Review of Systems - Review of Systems All systems: reviewed and no additional remarkable complaints except Past Patient History - Infectious Disease Hx of Infectious Diseases: None - Tetanus Immunizations Tetanus Immunization: Unknown - Past Medical History & Family History Past Medical History?: Yes - Past Social History Smoking Status: unknown - CARDIAC Hx Atrial Fibrillation: Yes Hx Congestive Heart Failure: Yes Hx Hypercholesterolemia: Yes Hx Hypertension: Yes Hx Peripheral Edema: Yes - PULMONARY Hx Chronic Obstructive Pulmonary Disease (COPD): Yes - NEUROLOGICAL Hx Alzheimer's Disease: Yes Hx Dementia: Yes - HEENT Hx HEENT Problems: No - RENAL Hx Chronic Kidney Disease: No - ENDOCRINE/METABOLIC Hx Endocrine Disorders: Yes Hx Diabetes Mellitus Type 2: Yes - HEMATOLOGICAL/ONCOLOGICAL Hx Blood Disorders: No Hx Blood Transfusions: No Hx Blood Transfusion Reaction: No - INTEGUMENTARY Hx Dermatological Problems: Yes Other/Comment: Hx Diabetic foot ulcer and non healing wound - MUSCULOSKELETAL/RHEUMATOLOGICAL Hx Falls: No (unknown) - GASTROINTESTINAL Hx Gastrointestinal Disorders: No - GENITOURINARY/GYNECOLOGICAL Hx Genitourinary Disorders: Yes Hx Urinary Tract Infection: Yes - PSYCHIATRIC Hx Substance Use: No (unknown) - SURGICAL HISTORY Hx Surgeries: Yes Hx Section: Yes (x2) Other/Comment: 01/13 unable to obtain any information from patient - ANESTHESIA Hx Anesthesia: Yes Hx Anesthesia Reactions: No Hx Malignant Hyperthermia: No Meds Allergies/Adverse Reactions: Allergies Allergy/AdvReac Type Severity Reaction Status Date / Time ertapenem sodium Allergy RASH Verified 12/16/17 19:48 [From [facility]] - Medications Medications: Current Medications Vancomycin/Sodium Chloride (Vancomycin 1 Gm/Ns 200 Ml) 1 gm in 200 mls @ 133 mls/hr IVPB STAT BRANT PRN Reason: Protocol Stop: 01/17/18 18:31 Last Admin: 01/12/18 19:31 Dose: 133 mls/hr Aztreonam 0.5 gm/ Sodium (Chloride) 100 mls @ 200 mls/hr IVPB Q8H BRANT PRN Reason: Protocol Last Admin: 01/13/18 10:44 Dose: 200 mls/hr Calcium Gluconate 4.65 meq/ (Sodium Chloride) 110 mls @ 110 mls/hr IV ONCE ONE Stop: 01/13/18 12:59 Last Admin: 01/13/18 12:06 Dose: 110 mls/hr Physical Exam - Constitutional Appears: Toxic, Confused, Chronically Ill - Head Exam Head Exam: NORMOCEPHALIC - Eye Exam Eye Exam: PERRL. absent: Scleral icterus - ENT Exam ENT Exam: Mucous Membranes Dry, Normal External Ear Exam - Neck Exam Neck exam: Negative for: Lymphadenopathy - Respiratory Exam Respiratory Exam: Decreased Breath Sounds, Rhonchi - Cardiovascular Exam Cardiovascular Exam: Tachycardia, REGULAR RHYTHM, +S1, +S2 - GI/Abdominal Exam GI & Abdominal Exam: Diminished Bowel Sounds, Distended, Soft. absent: Tenderness - Rectal Exam Rectal Exam: Deferred - Exam Exam: NORMAL INSPECTION - Extremities Exam Extremities exam: Positive for: pedal edema. Negative for: calf tenderness, pedal pulses present Additional comments: multiple wounds from NH - Back Exam Back exam: absent: CVA tenderness (L), CVA tenderness (R) - Neurological Exam Neurological exam: Alert, Altered, CN II-XII Intact - Psychiatric Exam Psychiatric exam: Depressed, Flat Affect Results - Vital Signs Recent Vital Signs: Last Vital Signs Temp 94.7 F L 01/13/18 06:09 Pulse 76 01/13/18 06:09 Resp 22 01/12/18 22:51 BP 102/73 01/13/18 06:09 Pulse Ox 99 01/12/18 22:51 - Labs Result Diagrams: 01/13/18 09:28 01/13/18 09:28 Labs: Laboratory Results - last 24 hr 01/12/18 01/12/18 01/12/18 18:34 18:37 18:37 WBC 8.5 D RBC 3.76 L Hgb 8.8 L Hct 28.5 L MCV 75.6 L MCH 23.3 L MCHC 30.8 L RDW 27.4 H Plt Count 363 D MPV 8.9 Neut % (Auto) 86.9 H Lymph % (Auto) 3.2 L [place] % (Auto) 9.2 Eos % (Auto) 0.0 Baso % (Auto) 0.7 Neut # (Auto) 7.4 H Lymph # (Auto) 0.3 L [place] # (Auto) 0.8 Eos # (Auto) 0.0 Baso # (Auto) 0.1 Neutrophils % (Manual) 89 H Band Neutrophils % Lymphocytes % (Manual) 7 L Monocytes % (Manual) 4 Nucleated RBC % 4 H Platelet Estimate Normal Polychromasia Slight Hypochromasia (manual) Moderate Poikilocytosis (manual Anisocytosis (manual) Moderate Microcytosis (manual) Slight Target Cells Slight Ovalocytes Slight Manuel Cells Slight Schistocytes Slight PT INR APTT pO2 VBG pH VBG pCO2 VBG HCO3 VBG Total CO2 VBG O2 Sat (Calc) VBG Base Excess VBG Potassium Glucose Lactate Crit Value Called To Crit Value Called By Crit Value Read Back Blood Gas Notified Time Sodium 153 H Potassium 6.0 H Chloride 112 H Carbon Dioxide 23 Anion Gap 24 H BUN 51 H Creatinine 2.7 H Est GFR ( Amer) 20 Est GFR (Non-Af Amer) 17 POC Glucose (mg/dL) 158 H Random Glucose 166 H Lactic Acid Calcium 9.7 Total Bilirubin 1.8 H AST 94 H D ALT 60 H D Alkaline Phosphatase 235 H D Troponin I 0.0390 NT-Pro-B Natriuret Pep 18163 H Total Protein 8.3 Albumin 3.4 L Globulin 4.9 H Albumin/Globulin Ratio 0.7 L Venous Blood Potassium Urine Color Urine Clarity Urine pH Ur Specific [place] Urine Protein Urine Glucose (UA) Urine Ketones Urine Blood Urine Nitrate Urine Bilirubin Urine Urobilinogen Ur Leukocyte Esterase Urine WBC (Auto) Urine RBC (Auto) Ur Squamous Epith Cells Influenza Typ A,B (EIA) 01/12/18 01/12/18 01/12/18 18:38 19:03 21:27 WBC RBC Hgb Hct MCV MCH MCHC RDW Plt Count MPV Neut % (Auto) Lymph % (Auto) [place] % (Auto) Eos % (Auto) Baso % (Auto) Neut # (Auto) Lymph # (Auto) [place] # (Auto) Eos # (Auto) Baso # (Auto) Neutrophils % (Manual) Band Neutrophils % Lymphocytes % (Manual) Monocytes % (Manual) Nucleated RBC % Platelet Estimate Polychromasia Hypochromasia (manual) Poikilocytosis (manual Anisocytosis (manual) Microcytosis (manual) Target Cells Ovalocytes Manuel Cells Schistocytes PT INR APTT pO2 22 L VBG pH 7.23 L VBG pCO2 50 VBG HCO3 17.6 VBG Total CO2 22.4 VBG O2 Sat (Calc) 39.3 L VBG Base Excess -6.9 L VBG Potassium 5.2 Glucose 156 H Lactate 4.3 H* Crit Value Called To Reed verma Crit Value Called By Joseph Crit Value Read Back Y Blood Gas Notified Time 1910 Sodium 150.0 H Potassium Chloride 120.0 H Carbon Dioxide Anion Gap BUN Creatinine Est GFR ( Amer) Est GFR (Non-Af Amer) POC Glucose (mg/dL) Random Glucose Lactic Acid Calcium Total Bilirubin AST ALT Alkaline Phosphatase Troponin I NT-Pro-B Natriuret Pep Total Protein Albumin Globulin Albumin/Globulin Ratio Venous Blood Potassium 5.2 Urine Color Straw Urine Clarity Clear Urine pH 5.0 Ur Specific [place] 1.004 Urine Protein Negative Urine Glucose (UA) Normal Urine Ketones Negative Urine Blood 3+ H Urine Nitrate Negative Urine Bilirubin Negative Urine Urobilinogen Normal Ur Leukocyte Esterase Neg Urine WBC (Auto) 5 Urine RBC (Auto) 23 H Ur Squamous Epith Cells 1 Influenza Typ A,B (EIA) Negative for flu a/b 01/13/18 01/13/18 01/13/18 06:32 09:28 09:28 WBC 8.9 RBC 3.66 L Hgb 8.5 L Hct 28.0 L MCV 76.4 L MCH 23.2 L MCHC 30.4 L RDW 27.6 H Plt Count 334 MPV 9.7 Neut % (Auto) 86.6 H Lymph % (Auto) 2.4 L [place] % (Auto) 10.9 H Eos % (Auto) 0.0 Baso % (Auto) 0.1 Neut # (Auto) 7.7 H Lymph # (Auto) 0.2 L [place] # (Auto) 1.0 H Eos # (Auto) 0.0 Baso # (Auto) 0.0 Neutrophils % (Manual) 84 H Band Neutrophils % 2 Lymphocytes % (Manual) 5 L Monocytes % (Manual) 9 Nucleated RBC % 13 H Platelet Estimate Normal Polychromasia Hypochromasia (manual) Moderate Poikilocytosis (manual Moderate Anisocytosis (manual) Marked Microcytosis (manual) Target Cells Moderate Ovalocytes Slight Manuel Cells Slight Schistocytes Slight PT 17.2 H INR 1.6 APTT 38 H pO2 VBG pH VBG pCO2 VBG HCO3 VBG Total CO2 VBG O2 Sat (Calc) VBG Base Excess VBG Potassium Glucose Lactate Crit Value Called To Crit Value Called By Crit Value Read Back Blood Gas Notified Time Sodium Potassium Chloride Carbon Dioxide Anion Gap BUN Creatinine Est GFR ( Amer) Est GFR (Non-Af Amer) POC Glucose (mg/dL) 164 H Random Glucose Lactic Acid Calcium Total Bilirubin AST ALT Alkaline Phosphatase Troponin I NT-Pro-B Natriuret Pep Total Protein Albumin Globulin Albumin/Globulin Ratio Venous Blood Potassium Urine Color Urine Clarity Urine pH Ur Specific [place] Urine Protein Urine Glucose (UA) Urine Ketones Urine Blood Urine Nitrate Urine Bilirubin Urine Urobilinogen Ur Leukocyte Esterase Urine WBC (Auto) Urine RBC (Auto) Ur Squamous Epith Cells Influenza Typ A,B (EIA) 01/13/18 01/13/18 01/13/18 09:28 09:30 11:09 WBC RBC Hgb Hct MCV MCH MCHC RDW Plt Count MPV Neut % (Auto) Lymph % (Auto) [place] % (Auto) Eos % (Auto) Baso % (Auto) Neut # (Auto) Lymph # (Auto) [place] # (Auto) Eos # (Auto) Baso # (Auto) Neutrophils % (Manual) Band Neutrophils % Lymphocytes % (Manual) Monocytes % (Manual) Nucleated RBC % Platelet Estimate Polychromasia Hypochromasia (manual) Poikilocytosis (manual Anisocytosis (manual) Microcytosis (manual) Target Cells Ovalocytes Manuel Cells Schistocytes PT INR APTT pO2 VBG pH VBG pCO2 VBG HCO3 VBG Total CO2 VBG O2 Sat (Calc) VBG Base Excess VBG Potassium Glucose Lactate Crit Value Called To Crit Value Called By Crit Value Read Back Blood Gas Notified Time Sodium 154 H Potassium 6.2 H* Chloride 114 H Carbon Dioxide 21 L Anion Gap 25 H BUN 55 H Creatinine 2.9 H Est GFR ( Amer) 19 Est GFR (Non-Af Amer) 15 POC Glucose (mg/dL) 140 H Random Glucose 149 H Lactic Acid 4.3 H* Calcium 9.3 Total Bilirubin 1.8 H AST 112 H ALT 70 H Alkaline Phosphatase 212 H Troponin I NT-Pro-B Natriuret Pep Total Protein 7.8 Albumin 3.2 L Globulin 4.7 H Albumin/Globulin Ratio 0.7 L Venous Blood Potassium Urine Color Urine Clarity Urine pH Ur Specific [place] Urine Protein Urine Glucose (UA) Urine Ketones Urine Blood Urine Nitrate Urine Bilirubin Urine Urobilinogen Ur Leukocyte Esterase Urine WBC (Auto) Urine RBC (Auto) Ur Squamous Epith Cells Influenza Typ A,B (EIA) Assessment & Plan (1) Anasarca Status: Acute (2) CHF (congestive heart failure) Status: Acute (3) Hypothermia Status: Acute (4) Mental status change Status: Acute (5) Sepsis Status: Acute (6) Anemia Status: Active (7) Bronchitis Status: Active (8) Diabetes mellitus type 2 Status: Active - Assessment and Plan (Free Text) Assessment: sepsis protocol iv rx in progress
[2018-01-13] MEDS: Ciprofloxacin 200mg/100ml D5W 100 ML IVPB SCH (13:36)
--- NOTE | 2018-01-13 15:07 | CARD ---
APPROVED REPORT EKG Measurement Heart [id number] <Conclusion> Atrial fibrillation with rapid ventricular response Low voltage QRS Inferior infarct, age undetermined Possible Anterolateral infarct, age undetermined Abnormal ECG
[2018-01-13] MEDS ORDERED: Morphine 4 MG/ML VIAL IVP PRN (15:27)
--- NOTE | 2018-01-14 | CP.PCM.CON ---
Past Patient History - Infectious Disease Hx of Infectious Diseases: None - Tetanus Immunizations Tetanus Immunization: Unknown - Past Medical History & Family History Past Medical History?: Yes - Past Social History Smoking Status: unknown - CARDIAC Hx Atrial Fibrillation: Yes Hx Congestive Heart Failure: Yes Hx Hypercholesterolemia: Yes Hx Hypertension: Yes Hx Peripheral Edema: Yes - PULMONARY Hx Chronic Obstructive Pulmonary Disease (COPD): Yes - NEUROLOGICAL Hx Alzheimer's Disease: Yes Hx Dementia: Yes - HEENT Hx HEENT Problems: No - RENAL Hx Chronic Kidney Disease: No - ENDOCRINE/METABOLIC Hx Endocrine Disorders: Yes Hx Diabetes Mellitus Type 2: Yes - HEMATOLOGICAL/ONCOLOGICAL Hx Blood Disorders: No Hx Blood Transfusions: No Hx Blood Transfusion Reaction: No - INTEGUMENTARY Hx Dermatological Problems: Yes Other/Comment: Hx Diabetic foot ulcer and non healing wound - MUSCULOSKELETAL/RHEUMATOLOGICAL Hx Falls: No (unknown) - GASTROINTESTINAL Hx Gastrointestinal Disorders: No - GENITOURINARY/GYNECOLOGICAL Hx Genitourinary Disorders: Yes Hx Urinary Tract Infection: Yes - PSYCHIATRIC Hx Substance Use: No (unknown) - SURGICAL HISTORY Hx Surgeries: Yes Hx Section: Yes (x2) Other/Comment: 01/13 unable to obtain any information from patient - ANESTHESIA Hx Anesthesia: Yes Hx Anesthesia Reactions: No Hx Malignant Hyperthermia: No Meds Allergies/Adverse Reactions: Allergies Allergy/AdvReac Type Severity Reaction Status Date / Time ertapenem sodium Allergy RASH Verified 12/16/17 19:48 [From [facility]] - Medications Medications: Current Medications Vancomycin/Sodium Chloride (Vancomycin 1 Gm/Ns 200 Ml) 1 gm in 200 mls @ 133 mls/hr IVPB STAT BRANT PRN Reason: Protocol Stop: 01/17/18 18:31 Last Admin: 01/12/18 19:31 Dose: 133 mls/hr Aztreonam 0.5 gm/ Sodium (Chloride) 100 mls @ 200 mls/hr IVPB Q8H BRANT PRN Reason: Protocol Last Admin: 01/13/18 17:16 Dose: 200 mls/hr Ciprofloxacin (Cipro 200mg/100ml D5w) 100 mls @ 67 mls/hr IVPB Q12H BRANT PRN Reason: Protocol Last Admin: 01/13/18 13:36 Dose: 67 mls/hr Morphine Sulfate (Morphine) 2 mg IVP Q4 PRN PRN Reason: Pain, moderate (4-7) Results - Vital Signs Recent Vital Signs: Last Vital Signs Temp 98.3 F 01/13/18 22:00 Pulse 93 H 01/13/18 22:00 Resp 20 01/13/18 22:00 BP 121/77 01/13/18 22:00 Pulse Ox 90 L 01/13/18 22:00 - Labs Result Diagrams: 01/13/18 09:28 01/13/18 09:28 Labs: Laboratory Results - last 24 hr 01/13/18 01/13/18 01/13/18 06:32 09:28 09:28 WBC 8.9 RBC 3.66 L Hgb 8.5 L Hct 28.0 L MCV 76.4 L MCH 23.2 L MCHC 30.4 L RDW 27.6 H Plt Count 334 MPV 9.7 Neut % (Auto) 86.6 H Lymph % (Auto) 2.4 L [place] % (Auto) 10.9 H Eos % (Auto) 0.0 Baso % (Auto) 0.1 Neut # (Auto) 7.7 H Lymph # (Auto) 0.2 L [place] # (Auto) 1.0 H Eos # (Auto) 0.0 Baso # (Auto) 0.0 Neutrophils % (Manual) 84 H Band Neutrophils % 2 Lymphocytes % (Manual) 5 L Monocytes % (Manual) 9 Nucleated RBC % 13 H Platelet Estimate Normal Hypochromasia (manual) Moderate Poikilocytosis (manual Moderate Anisocytosis (manual) Marked Target Cells Moderate Ovalocytes Slight Manuel Cells Slight Schistocytes Slight PT 17.2 H INR 1.6 APTT 38 H Sodium Potassium Chloride Carbon Dioxide Anion Gap BUN Creatinine Est GFR ( Amer) Est GFR (Non-Af Amer) POC Glucose (mg/dL) 164 H Random Glucose Lactic Acid Calcium Total Bilirubin AST ALT Alkaline Phosphatase Total Protein Albumin Globulin Albumin/Globulin Ratio 01/13/18 01/13/18 01/13/18 09:28 09:30 11:09 WBC RBC Hgb Hct MCV MCH MCHC RDW Plt Count MPV Neut % (Auto) Lymph % (Auto) [place] % (Auto) Eos % (Auto) Baso % (Auto) Neut # (Auto) Lymph # (Auto) [place] # (Auto) Eos # (Auto) Baso # (Auto) Neutrophils % (Manual) Band Neutrophils % Lymphocytes % (Manual) Monocytes % (Manual) Nucleated RBC % Platelet Estimate Hypochromasia (manual) Poikilocytosis (manual Anisocytosis (manual) Target Cells Ovalocytes [place] Cells Schistocytes PT INR APTT Sodium 154 H Potassium 6.2 H* Chloride 114 H Carbon Dioxide 21 L Anion Gap 25 H BUN 55 H Creatinine 2.9 H Est GFR ( Amer) 19 Est GFR (Non-Af Amer) 15 POC Glucose (mg/dL) 140 H Random Glucose 149 H Lactic Acid 4.3 H* Calcium 9.3 Total Bilirubin 1.8 H AST 112 H ALT 70 H Alkaline Phosphatase 212 H Total Protein 7.8 Albumin 3.2 L Globulin 4.7 H Albumin/Globulin Ratio 0.7 L 01/13/18 16:31 WBC RBC Hgb Hct MCV MCH MCHC RDW Plt Count MPV Neut % (Auto) Lymph % (Auto) [place] % (Auto) Eos % (Auto) Baso % (Auto) Neut # (Auto) Lymph # (Auto) [place] # (Auto) Eos # (Auto) Baso # (Auto) Neutrophils % (Manual) Band Neutrophils % Lymphocytes % (Manual) Monocytes % (Manual) Nucleated RBC % Platelet Estimate Hypochromasia (manual) Poikilocytosis (manual Anisocytosis (manual) Target Cells Ovalocytes Manuel Cells Schistocytes PT INR APTT Sodium Potassium Chloride Carbon Dioxide Anion Gap BUN Creatinine Est GFR ( Amer) Est GFR (Non-Af Amer) POC Glucose (mg/dL) 141 H Random Glucose Lactic Acid Calcium Total Bilirubin AST ALT Alkaline Phosphatase Total Protein Albumin Globulin Albumin/Globulin Ratio Assessment & Plan - Assessment and Plan (Free Text) Assessment: IMP: Sepsis Renal failure Anuria CHF Anasarca Thank you. YS - Date & Time Date: 01/13/18 Time: 11:35
[2018-01-14] MEDS: Ciprofloxacin 200mg/100ml D5W 100 ML IVPB SCH (01:39)
[2018-01-14 03:28] VITALS: O2SAT 95
[2018-01-14] MEDS ORDERED: Albumin Human 5% (12.5 gm/250 ml) IV ONE (06:19)
--- NOTE | 2018-01-14 06:34 | CP.PCM.PRO ---
Pronouncement of Note - Clinical Findings Physical Exam: No Response Verbal/Painful Stimuli, Absent Peripheral Pulses{ Carotid & Femoral}, Absent Heart & Breath Sounds, No Pupillary Light Reflex, No Corneal Reflex, Pupils Fixed & Dilated, Absence of Vital Signs - Pronouncement Time Time of Pronouncement of : 06:30 - Notifications Pronouncement Notifications: Family Notified, Atending Notified Potato Spotter Notified: No - Autopsy Autopsy Requested: No - [place] [id number]
[2018-01-14 08:09] VITALS: PULSE 80; RESP 26; TEMP 97.7
[2018-01-14 08:10] VITALS: BP 71/58
--- NOTE | 2018-01-15 08:01 | HP ---
HISTORY OF PRESENT ILLNESS: The patient was admitted to the hospital with chief complaint of weakness, fatigue, tiredness, hypothermia, sepsis. Otherwise, the patient has history of dementia, lower extremities, UTI. PHYSICAL EXAMINATION GENERAL: The patient is awake, lethargic. VITAL SIGNS: Temperature 98, and pulse 90. HEENT: Within normal limits. NECK: Supple. CHEST: Symmetrical. HEART: Regular. ABDOMEN: Soft. EXTREMITIES: No edema. IMPRESSION: The patient suffers from sepsis, hypothermia. The patient on intravenous fluids, antibiotics. Duy Baer MD
== END 2018-01-14 10:45 | DRG 872 ==
LOC: C.ER 17:50 → C.9E 19:22 → C.6T 22:06
PROVIDERS: ADMIT Internal Medicine Pulmonary Disease; ATTEND Internal Medicine Pulmonary Disease
DX: A41.9 Sepsis, unspecified organism (principal); E87.2 Acidosis; N39.0 Urinary tract infection, site not specified; E78.00 Pure hypercholesterolemia, unspecified; E86.0 Dehydration; F02.80 Dementia in other diseases classified elsewhere, unspecified severity, without behavioral disturbance, psychotic disturbance, mood disturbance, and anxiety; G30.9 Alzheimer's disease, unspecified; I11.0 Hypertensive heart disease with heart failure; I48.91 Unspecified atrial fibrillation; I50.9 Heart failure, unspecified; J44.9 Chronic obstructive pulmonary disease, unspecified; N19 Unspecified kidney failure; Z66 Do not resuscitate; R33.9 Retention of urine, unspecified; E11.9 Type 2 diabetes mellitus without complications